=== PATIENT | female | born 1980 | race Caucasian/White ===

== ENCOUNTER 2018-10-20 08:10 | Outpatient (CLI) | payer BC, SELFPAY ==
[2018-10-18 11:05] VITALS: BMI 26.9
[2018-10-20 08:18] VITALS: BMI 29.3
--- NOTE | 2018-10-20 09:04 | OB.TRI.NOTE ---
- Problem List (1) Previous delivery affecting Status: Acute (2) False labor after 37 weeks of gestation without delivery Status: Acute History of Present Illness Date of Service: 10/20/18 Was patient seen by the physician?: Yes Reason For Visit: R/O LABOR Date of Service: 10/20/18 Final SUZANNA: 10/20/18 Final SUZANNA Source: US <20 weeks Gestational age: 40 Weeks and 0 Days History of Present Illness: Patient presents to triage reporting progressively stronger and longer contractions overnight. Contraction started last night at 10:00pm and were short and irregular, now contractions are reported to be 4 minutes apart and lasting 60-70 seconds long over 1.5 hours. Patient denies VB, LIAN or DFM. See [facility] Record - course has been uncomplicated. PMH significant for IVF with this and previous LTCS. Patient desires TOLAC. Allergies morphine Adverse Reaction (Verified 12/23/14 02:32) Itching - Pertinent Past Medical History Medical History: Past Medical History (Last Reviewed 10/18/18 @ 09:49 by Terri Rodriguez) History of herniated intervertebral disc Stomach ulcer Surgical History: Past Surgical History (Last Reviewed 10/18/18 @ 09:49 by Terri Rodriguez) History of delivery History of cholecystectomy History of foot surgery History of tonsillectomy Review of Systems Constitutional: Denies: Chills, Fever, Weight Change HEENT: Denies: Head Aches, Sinus Congestion, Sinus Drainage Cardiovascular: Denies: Chest Pain, Palpitations Respiratory: Denies: Cough, Shortness of breath at rest, Sputum production Gastrointestinal: Denies: Abdominal Pain, Nausea, Vomiting Genitourinary: Denies: Dysuria Gynecological: Denies: Vaginal bleeding, Vaginal discharge Musculoskeletal: Denies: Joint Pain, Joint Tenderness Skin: Denies: Rash, Wounds Neurological: Denies: Numbness, Tingling, Focal weakness Psychiatric: Denies: Anxiety, Depression, Homicidal Ideations, Suicidal Ideations Hematologic/ Lymphatic: Denies: Easy Bruising, Easy Bleeding Physical Exam Vitals: See nursing note for Vital signs - VSS, Afebrile General: Alert, Oriented x3, No apparent distress HEENT: Atraumatic, Normocephalic. Negative for: Thyromegaly, Lymphadenopathy Cardiovascular: Regular rate, Regular Rhythm Lungs: Normal air movement Abdomen: Soft, Non Tender, Non-Distended, Gravid Extremities:: No edema Neurological: Deep Tendon Reflexes 2+/4 and Symmetrical, Neuro grossly intact LENDING CONSULTANT: Normal external genitalia. Negative for: Vulvar lesions Estimated gestational size: Appropriate for gestational size - EFW = 7# by KAREL Crespo Presentation: Cephalic Cervix Dilation (cm): 0 - Cervix soft Station: -3 Effacement (%): 50 NST - FHR Rate Baby A Baseline: 140 Variability:: Moderate Accelerations:: 15 x 15 Decelerations:: None NST Reactive:: Yes, Appropriate for gestational age FHR Category:: Category I Uterine Activity:: Irregular ctx q 2-10 minutes noted, mildly palpable q 10 minutes Impression/Plan 38 y/o @ 40 weeks, Hx of LTCS x 1, False Labor, Category I FHT P: 1) Dr. Robert back-up OB physician notified of patient exam and plan of care - in agreement to discharge to home at this time 2) TOLAC option again reviewed - patient declines Rpt LTCS at this time 3) Labor precautions and [facility] teaching reviewed 4) RTC as scheduled Paulina LOZA
== END 2018-10-20 09:45 | disposition home or self-care (01) ==
LOC: WPOUT 08:13 → WP 08:15
PROVIDERS: Referring Provider Obstetrics & Gynecology; Visit Provider Obstetrics & Gynecology
DX: O47.1 False labor at or after 37 completed weeks of gestation (principal); Z3A.40 40 weeks gestation of pregnancy; O34.211 Maternal care for low transverse scar from previous cesarean delivery
CPT/HCPCS: 59025; 59050; 99218; G0378

== ENCOUNTER 2018-10-21 02:50 | Inpatient (IN) | payer BC, SELFPAY ==
[2018-10-20 08:18] VITALS: BMI 29.3
[2018-10-21 03:32] VITALS: BMI 29.2
[2018-10-21] MEDS: Lactated Ringers 1,000 ML 50 ML IV ×3 (03:35→10:31)
[2018-10-21 03:57] LABS: Hematocrit 35.3 % (37-47); Hemoglobin 12.1 g/dl (12.0-15.0); Mean Corp Hgb Conc 34.3 g/gl (32-36); Mean Corpuscular Hgb 32.3 pg (27.0-32.0); Mean Corpuscular Volume 94.1 fL (81-99); Mean Platelet Vol. 12.7 fl (6.2-12.0); Platelet Count 133 K/mm3 (150-450); RBC Distribution Width CV 12.4 % (11.6-14.6); RBC Distribution Width SD 41.4 fl (35.1-43.9); Red Blood Count 3.75 M/mm3 (4.2-5.4); White Blood Count 10.1 K/mm3 (4.4-11.0)
[2018-10-21 04:06] LABS: Scan Indicated on CBC? Y/N NO
[2018-10-21] MEDS: Ondansetron 4 MG/2 ML Vial IV (04:13)
[2018-10-21] MEDS: fentaNYL-bupivacaine (epidural) 100 ML BAG EPIDURAL ×2 (05:28→10:32)
--- NOTE | 2018-10-21 05:28 | HP.PCM_ITS ---
- Problem List (1) conceived through in vitro fertilization Status: Acute (2) Rh negative status during Status: Acute (3) Advanced maternal age in multigravida Status: Acute (4) Previous delivery affecting Status: Acute History Date of Admission: 10/21/18 Final SUZANNA: 10/20/18 Final SUZANNA Source: US <20 weeks Gestational age: 40 Weeks and 1 Days History of this : This is a 38 year-old, G [2], P [1], at 40 weeks gestational age, presenting to triage for labor evaluation following regular contractions on and off over the last 18 hours. Starting at 0100 contractions were painful and 3-4 minutes apart. Patient denied VB or SROM. Past surgical hx significant for Primary LTCS for placenta previa, patient desires TOLAC with plans of . course has been uncomplicated. Medical History: Medical History (Last Reviewed 10/18/18 @ 09:49 by Terri Rodriguez) History of herniated intervertebral disc Z87.39 Z34.90 Stomach ulcer K25.9 Surgical History: Surgical History (Last Reviewed 10/18/18 @ 09:49 by Terri Rodriguez) History of delivery Z98.891 History of cholecystectomy Z90.49 History of foot surgery Z98.890 History of tonsillectomy Z90.89 Allergies morphine Adverse Reaction (Verified 10/21/18 03:33) Itching Home Medications: Home Medications Vits [Prenatabs FA] 1 tablet PO DAILY 05/13/16 Ranitidine [Zantac] 150 mg PO DAILY 05/13/16 Aspirin [Aspirin, Baby] 81 mg PO DAILY@0800 10/20/18 Smoking Status: Never smoker Alcohol: None Number of Fetus(es): 1 Heart Tracing: Baseline 135, moderate variability, + accels, no decels TOCO Analysis: Ctx q 5-6 minutes on tocometer now, palpating moderately strong. Ctx were 3-4 minutes on arrival to hospital and palpating strong at that time. History Past Pregnancies: Past Pregnancies Delivery Date Name GA/Weeks Outcome Route Weight Infant Gender Labor Length Anesthesia Delivery Location Provider FOB 05/2014 37+1 Live LTCS 6#3oz F Spinal Labs: O Neg, Abs Neg, H/H = 11.9/36.4 --> ,GBS positive,, RPR NR, Rubella Immune, HIV Neg, HepBsAg Neg, GC/CT = Neg/Neg, Urine Tox Neg, Urine Culture Neg Expected Delivery Method: Describe any other labor & delivery plans:: Desires NCB but may elect epidural Number of Visits: 17 Review of Systems HEENT: Denies: Head Aches, Visual Changes Cardiovascular: Denies: Chest Pain, Palpitations Respiratory: Denies: Cough, Shortness of breath at rest Gastrointestinal: Denies: Nausea, Vomiting Genitourinary: Denies: Dysuria Gynecological: Reports: Vaginal discharge - Scant mucus bloody show Musculoskeletal: Denies: Joint Pain, Joint Tenderness Skin: Denies: Rash Neurological: Denies: Numbness, Tingling Psychiatric: Denies: Anxiety, Depression, Homicidal Ideations, Suicidal Ideations Hematologic/ Lymphatic: Denies: Easy Bruising, Easy Bleeding Physical Exam Vitals: See Nursing Note for Vitals - VSS, Afebrile. One elevated BP noted 140/90 during contractions, rpt blood pressure after ctx normotensive General: Alert, Oriented x3, No apparent distress - calmly breathing through ctx HEENT: Atraumatic, Normocephalic. Negative for: Thyromegaly, Lymphadenopathy Cardiovascular: Regular rate, Regular Rhythm Lungs: Normal air movement Abdomen: Soft, Non Tender, Gravid - EFW = 7.5#, baby KALINA by Gaetano's, Appropriate for Gestational Age Extremities:: No edema Neurological: Cranial nerves II-XII grossly intact, Deep Tendon Reflexes 2+/4 and Symmetrical, Neuro grossly intact SCREEN DOOR MAKER: Normal external genitalia. Negative for: Vulvar lesions Estimated gestational size: Appropriate for gestational size Presentation: Cephalic Cervix Dilation (cm): 4 - BBOW palpable Station: -2 Effacement (%): 100 Assessment/Plan All Active Problems (Last Reviewed 10/18/18 @ 09:49 by Terri Rodriguez) Previous delivery affecting (Acute) False labor after 37 weeks of gestation without delivery (Acute) conceived through in vitro fertilization (Acute) Rh negative status during (Acute) Advanced maternal age in multigravida (Acute) Segmental and somatic dysfunction of pelvic region (Acute) Segmental and somatic dysfunction of sacral region (Acute) Segmental and somatic dysfunction of lumbar region (Acute) This is a 38 year-old, G [2], P [1], at 40 weeks gestational age, Spontaneous Active Labor, Hx of LTCS with plans of TOLAC, Category I FHT. 1) Admit patient, Dr. Robert back up physician notified of admission and is in house at this time 2) Patient requesting epidural at this time 3) Expectant management 4) Anticipate Paulina LOZA
[2018-10-21] MEDS: Mag Hydrox/Al Hydrox/Simeth 30 ML UDC PO (06:36)
--- NOTE | 2018-10-21 07:33 | PCM.PN.OB ---
Patient Problems: Active and Suspected Problems (Last Reviewed 10/18/18 @ 09:49 by Terri Rodriguez) conceived through in vitro fertilization (Acute) Rh negative status during (Acute) Advanced maternal age in multigravida (Acute) Subjective: Patient feeling comfortable after epidural placement. Reports no issues overnight. Baby is vigorous and suckling well at breast; occasional issues with latch secondary to patient having bilateral everted nipples. Patient notes no other problems at this time. Requesting to go home this afternoon or evening if baby is discharged by lead database developer. Objective: FHT baseline 130, moderate variability, + accels, no decels Ctx q 5-6 minutes apart palpating moderately strong SVE = 4-5/100/-1, AROM for copious meconium stained fluid - Physical Exam General: Alert, Oriented x3, Cooperative HEENT: Atraumatic, Normocephalic Neck: Supple Lungs: Normal air movement Cardiovascular: Regular rate, No murmurs Abdomen: Soft, Non Tender Extremities: No edema, Capillary Refill Less than 3 Seconds Skin: No rashes, No breakdown Musculoskeletal: No Tenderness to Palpation of Joints or Extremities Neurological: Cranial nerves II-XII grossly intact, Deep Tendon Reflexes 2+/4 and Symmetrical Psych/Mental Status: Normal Affect, Appropriate Weight: 170 lb 6.677 oz Body Mass Index (BMI) 29.2 Intake and Output for Last 24 Hours 10/19/18 10/20/18 10/21/18 23:59 23:59 23:59 Intake Total 1362 / 1362 Balance 1362 / 1362 Laboratory Tests Past 24 Hrs 10/21/18 10/21/18 03:35 03:35 WBC 10.1 RBC 3.75 L Hgb 12.1 Hct 35.3 L MCV 94.1 MCH 32.3 H MCHC 34.3 RDW 12.4 RDW Differential 41.4 Plt Count 133 L MPV 12.7 H Blood Type O NEGATIVE Antibody Screen NEGATIVE Medical Necessity - Tobacco Use Smoking Status: Never smoker Assessment/Plan All Active Problems (Last Reviewed 10/18/18 @ 09:49 by Terri Rodriguez) Previous delivery affecting (Acute) False labor after 37 weeks of gestation without delivery (Acute) conceived through in vitro fertilization (Acute) Rh negative status during (Acute) Advanced maternal age in multigravida (Acute) Segmental and somatic dysfunction of pelvic region (Acute) Segmental and somatic dysfunction of sacral region (Acute) Segmental and somatic dysfunction of lumbar region (Acute) 38 y/o @ 40.1 wks, Active Labor, AROM for Labor Augmentation, Category I FHT, TOLAC P: 1) Report given to Dr. George FERRIS on-coming provider 2) Continue present management, consider initiation of IV pitocin for labor augmentation if minimal cervical change noted with next exam 3) Reassess cervix PRN for changes to maternal or status Paulina LOZA
--- NOTE | 2018-10-21 07:49 | PCM.PN.OB ---
Patient Problems: Active and Suspected Problems (Last Reviewed 10/18/18 @ 09:49 by Treri Rodriguez) conceived through in vitro fertilization (Acute) Rh negative status during (Acute) Advanced maternal age in multigravida (Acute) Subjective: Patient comfortable and was able to rest after epidural placement. Denies any complaints or concerns at this time. Decision made to reassess cervical exam - plan to consider IUPC and AROM as contractions seem to have spaced out and decreased in strength and intensity. Objective: FHT baseline 130, moderate variability, + accels, no decels Ctx q 5-6 minutes, palpating moderately strong SVE = 4-5/100/-1, AROM for copious meconium stained fluid - Physical Exam General: Alert, Oriented x3, Cooperative HEENT: Atraumatic, Normocephalic Neck: Supple Lungs: Normal air movement Cardiovascular: Regular rate, No murmurs Abdomen: Soft, Non Tender, Gravid Extremities: No edema, Capillary Refill Less than 3 Seconds Skin: No rashes, No breakdown Musculoskeletal: No Tenderness to Palpation of Joints or Extremities Neurological: Cranial nerves II-XII grossly intact Psych/Mental Status: Normal Affect, Appropriate Weight: 170 lb 6.677 oz Body Mass Index (BMI) 29.2 Intake and Output for Last 24 Hours 10/19/18 10/20/18 10/21/18 23:59 23:59 23:59 Intake Total 1362 / 1362 Balance 1362 / 1362 Laboratory Tests Past 24 Hrs 10/21/18 10/21/18 03:35 03:35 WBC 10.1 RBC 3.75 L Hgb 12.1 Hct 35.3 L MCV 94.1 MCH 32.3 H MCHC 34.3 RDW 12.4 RDW Differential 41.4 Plt Count 133 L MPV 12.7 H Blood Type O NEGATIVE Antibody Screen NEGATIVE Medical Necessity - Tobacco Use Smoking Status: Never smoker Assessment/Plan All Active Problems (Last Reviewed 10/18/18 @ 09:49 by Terri Rodriguez) Previous delivery affecting (Acute) False labor after 37 weeks of gestation without delivery (Acute) conceived through in vitro fertilization (Acute) Rh negative status during (Acute) Advanced maternal age in multigravida (Acute) Segmental and somatic dysfunction of pelvic region (Acute) Segmental and somatic dysfunction of sacral region (Acute) Segmental and somatic dysfunction of lumbar region (Acute) 38 y/o @ 40+1wks, TOLAC, Cateogyr I FHT, Active labor with AROM Labor Augmentation P: 1) Reports given to Dr. George FERRIS oncoming provider 2) Continue present management - consider initiation of IV pitocin if contractions remain inadequate 3) Reassess SVE with changes to maternal or status. Paulina LOZA
[2018-10-21] MEDS: Oxytocin 30 units/NS 500 ml 30 UNITS/500 ML IV.SOLN 167 UNITS IV ×2 (10:31→15:15)
[2018-10-21] MEDS: Oxytocin 30 units/NS 500 ml 30 UNITS/500 ML IV.SOLN 334 UNITS IV (14:20)
--- NOTE | 2018-10-21 14:52 | PCM.OB.VAG ---
Vaginal Delivery Maternal Presentation: Active Labor Amniotic Membrane Rupture Type: Artificial Amniotic Fluid Description: Lightly stained meconium Final SUZANNA: 10/20/18 Gestational age: 40 Weeks and 1 Days Date of Procedure: 10/21/18 Pre-Operative Diagnosis: TOLAC Post-Operative Diagnosis: TOLAC Surgery/ Procedure Performed: Spontaneous Vaginal Delivery Type of Anesthesia: Epidural Description of Procedure: Patient prepped & draped when c/c/+2. She pushed to deliver head. head gently guided to allow delivery of anterior & posterior shoulders. No excess traction placed on head. Body delivered & placed on maternal abdomen. 3VC clamped after slight delay. Placenta delivered with gentle traction. Good uterine tone obtained. Presentation: KAREL Placental Delivery Description: Expressed Placenta Disposition: [facility] Cord Vessel Description: 3 Vessels Cord Entanglement: Around neck x 1, loose Estimated Blood Loss: 400ml A gender: Female (1 minute): 8 (5 minute): 9 Episiotomy Description: None Laceration: 2nd degree - perineal - repaired with 3-0 vicryl Medications given after delivery: IV Pitocin Complications: None
[2018-10-21] MEDS: 0.9% Saline Lock 10 ML Syringe IV (16:27)
[2018-10-21 19:42] VITALS: BP 140/83; PULSE 96; RESP 17; TEMP 37.7; O2SAT 99
[2018-10-21] MEDS: Ibuprofen 600 MG Tablet PO (20:37)
[2018-10-22 00:05] VITALS: BP 120/66; PULSE 90; RESP 16; TEMP 36.7; O2SAT 98
[2018-10-22 04:10] VITALS: BP 115/73; PULSE 72; RESP 17; TEMP 36.8; O2SAT 98
[2018-10-22] MEDS: Ibuprofen 600 MG Tablet PO ×3 (05:04→17:28)
[2018-10-22] MEDS: Acetaminophen 500 MG Tablet 1000 MG PO ×2 (09:00→21:52)
[2018-10-22] MEDS: Senna/Docusate Sodium 1 Tablet PO (09:00)
[2018-10-22 09:56] VITALS: BP 127/85; PULSE 76; RESP 16; TEMP 36.8
--- NOTE | 2018-10-22 12:03 | PCM.PN.OB ---
Patient Problems: Active and Suspected Problems (Last Reviewed 10/18/18 @ 09:49 by Terri Rodriguez) conceived through in vitro fertilization (Acute) Rh negative status during (Acute) Advanced maternal age in multigravida (Acute) Subjective: Denies complaints other than some perineal pain with movement - Physical Exam General: Alert, Oriented x3 Abdomen: Soft, Non Tender, Non-Distended - ff mid & below umb Extremities: No Calf Tenderness Vital Signs Temp Pulse Resp BP Pulse Ox 98.3 F 76 16 127/85 H 98 10/22/18 09:56 10/22/18 09:56 10/22/18 09:56 10/22/18 09:56 10/22/18 04:10 Oxygen Delivery Method Room Air Weight: 170 lb 6.677 oz Body Mass Index (BMI) 29.2 Intake and Output for Last 24 Hours 10/20/18 10/21/18 10/22/18 23:59 23:59 23:59 Intake Total 1901 / 1901 Output Total 1600 / 1600 Balance 301 / 301 Laboratory Tests Past 24 Hrs 10/21/18 16:25 Screen NEGATIVE Baby's Blood Type O POSITIVE Baby's HAYDEE NEGATIVE Medical Necessity - Tobacco Use Smoking Status: Never smoker Assessment/Plan All Active Problems (Last Reviewed 10/18/18 @ 09:49 by Terri Rodriguez) Previous delivery affecting (Acute) False labor after 37 weeks of gestation without delivery (Acute) conceived through in vitro fertilization (Acute) Rh negative status during (Acute) Advanced maternal age in multigravida (Acute) Segmental and somatic dysfunction of pelvic region (Acute) Segmental and somatic dysfunction of sacral region (Acute) Segmental and somatic dysfunction of lumbar region (Acute) PPD#1 Routine care
[2018-10-22 16:00] VITALS: BP 111/71; PULSE 83; RESP 16; TEMP 36.5
[2018-10-22 19:28] VITALS: BP 129/81; PULSE 87; RESP 16; TEMP 36.9; O2SAT 98
[2018-10-23 02:10] VITALS: BP 120/77; PULSE 96; RESP 19; TEMP 36.8; O2SAT 98
[2018-10-23] MEDS: Ibuprofen 600 MG Tablet PO ×2 (02:14→08:15)
--- NOTE | 2018-10-23 07:41 | PCM.PN.OB ---
Patient Problems: Active and Suspected Problems (Last Reviewed 10/18/18 @ 09:49 by Terri Rodriguez) conceived through in vitro fertilization (Acute) Rh negative status during (Acute) Advanced maternal age in multigravida (Acute) Subjective: No complaints - Physical Exam General: Alert, Oriented x3 Abdomen: Non Tender, Non-Distended - ff mid & below umb Extremities: No Calf Tenderness Vital Signs Temp Pulse Resp BP Pulse Ox 98.2 F 96 19 H 120/77 98 10/23/18 02:10 10/23/18 02:10 10/23/18 02:10 10/23/18 02:10 10/23/18 02:10 Oxygen Delivery Method Room Air Weight: 170 lb 6.677 oz Body Mass Index (BMI) 29.2 Intake and Output for Last 24 Hours 10/21/18 10/22/18 10/23/18 23:59 23:59 23:59 Intake Total 1901 / 1901 Output Total 1600 / 1600 Balance 301 / 301 Medical Necessity - Tobacco Use Smoking Status: Never smoker Assessment/Plan All Active Problems (Last Reviewed 10/18/18 @ 09:49 by Terri Rodriguez) Previous delivery affecting (Acute) False labor after 37 weeks of gestation without delivery (Acute) conceived through in vitro fertilization (Acute) Rh negative status during (Acute) Advanced maternal age in multigravida (Acute) Segmental and somatic dysfunction of pelvic region (Acute) Segmental and somatic dysfunction of sacral region (Acute) Segmental and somatic dysfunction of lumbar region (Acute) PPD#2 D/c home Heme - repeat cbc as mild thrombocytopenia on admission
--- NOTE | 2018-10-23 07:42 | DCINST_ITS ---
Discharge Diet: No Restrictions Discharge Activity: May Drive, May Shower May resume sexual activity in: 4-6 weeks Weight Bearing Status: Weight bearing as tolerated Additional Instructions: If you experience any of the following, contact your healthcare provider. * Bleeding that soaks a pad every hour for 2 hours * Fever 100.4 or higher * Unrelieved incision or abdominal pain * Swelling, redness, discharge or bleeding from your incision or episiotomy site * Your incision begins to separate * Problems urinating (including inability to urinate or burning while urinating). * Visual changes * Severe headache * Flu-like symptoms * Pain or redness in one of both of your breasts * Pain, warmth, tenderness or swelling in your legs, especially the calf area * Frequent nausea and vomiting * Symptoms of depression or anxiety If you experience any of the following, call 911 or go to the nearest Emergency Room. * Chest pain * Problems breathing * Seizure activity * Partial or complete paralysis of a body part, slurred speech, weakness or drooping of the face, or a sudden inability to walk or hold your balance Allergies/Adverse Reactions: Allergies morphine Adverse Reaction (Verified 10/21/18 03:33) Itching Medications to take at Discharge Vits [Prenatabs FA ] 1 tablet PO DAILY 05/13/16 Ranitidine [Zantac] 150 mg PO DAILY 05/13/16 Primary Care Physician: Care Physician,No Primary [Primary Care Provider] - Test Results: Test results from this visit will be discussed in further detail at your follow- up appointment, if applicable.
--- NOTE | 2018-10-23 07:42 | PCM.DCVAG ---
Discharge Diet: No Restrictions Discharge Activity: May Drive, May Shower May resume sexual activity in: 4-6 weeks Weight Bearing Status: Weight bearing as tolerated Additional Instructions: If you experience any of the following, contact your healthcare provider. Bleeding that soaks a pad every hour for 2 hours Fever 100.4 or higher Unrelieved incision or abdominal pain Swelling, redness, discharge or bleeding from your incision or episiotomy site Your incision begins to separate Problems urinating (including inability to urinate or burning while urinating). Visual changes Severe headache Flu-like symptoms Pain or redness in one of both of your breasts Pain, warmth, tenderness or swelling in your legs, especially the calf area Frequent nausea and vomiting Symptoms of depression or anxiety If you experience any of the following, call 911 or go to the nearest Emergency Room. Chest pain Problems breathing Seizure activity Partial or complete paralysis of a body part, slurred speech, weakness or drooping of the face, or a sudden inability to walk or hold your balance Allergies/Adverse Reactions: Allergies morphine Adverse Reaction (Verified 10/21/18 03:33) Itching Medications to take at Discharge Vits [Prenatabs FA ] 1 tablet PO DAILY 05/13/16 Ranitidine [Zantac] 150 mg PO DAILY 05/13/16 Primary Care Physician: Care Physician,No Primary [Primary Care Provider] - Test Results: Test results from this visit will be discussed in further detail at your follow-up appointment, if applicable.
[2018-10-23 08:15] VITALS: BP 118/71; PULSE 98; RESP 18; TEMP 36.5
[2018-10-23 08:45] LABS: Absolute Lymphocyte Count 2.42 X10^3/ul (0.83-4.51); Absolute Neutrophil Count 9.3 X10^3/uL (2.0-7.7); Basophil# 0.03 X10^3/uL; Basophil% 0.2 % (0-1); Eosinophils% 1.5 % (0-5); Hematocrit 26.4 % (37-47); Hemoglobin 8.7 g/dl (12.0-15.0); Lymphocyte # 2.42 X10^3/ul (4.0); Lymphocyte % 18.4 % (19-41); Mean Corpuscular Hgb 32.2 pg (27.0-32.0); Mean Corpuscular Volume 97.8 fL (81-99); Mean Platelet Vol. 11.5 fl (6.2-12.0); Monocyte# 1.06 X10^3/uL; Monocyte% 8.1 % (0-10); Neutrophil # 9.31 X10^3/uL (2.7-7.7); Neutrophil % 70.8 % (47-70); Platelet Count 121 K/mm3 (150-450); RBC Distribution Width CV 12.7 % (11.6-14.6); RBC Distribution Width SD 42.7 fl (35.1-43.9); White Blood Count 13.2 K/mm3 (4.4-11.0)
[2018-10-23 08:49] LABS: POSITIVE COUNT NO; POSITIVE DIFFERENTIAL NO; POSITIVE MORPHOLOGY NO
== END 2018-10-23 11:30 | disposition home or self-care (01) | DRG 806 ==
PROVIDERS: Obstetrics & Gynecology; Admitting Provider Obstetrics & Gynecology; Referring Provider Obstetrics & Gynecology; Visit Provider Obstetrics & Gynecology
PROC: (CPT 59514; principal; 2018-10-26 07:15)
DX: O34.211 Maternal care for low transverse scar from previous cesarean delivery (principal); O99.12 Other diseases of the blood and blood-forming organs and certain disorders involving the immune mechanism complicating childbirth; Z37.0 Single live birth; D69.6 Thrombocytopenia, unspecified; O70.1 Second degree perineal laceration during delivery; M99.03 Segmental and somatic dysfunction of lumbar region; M99.05 Segmental and somatic dysfunction of pelvic region; M99.04 Segmental and somatic dysfunction of sacral region; O69.81X0 Labor and delivery complicated by cord around neck, without compression, not applicable or unspecified; Z67.91 Unspecified blood type, Rh negative; Z3A.40 40 weeks gestation of pregnancy; Z90.49 Acquired absence of other specified parts of digestive tract; Z87.39 Personal history of other diseases of the musculoskeletal system and connective tissue; Z87.11 Personal history of peptic ulcer disease
CPT/HCPCS: 59025; 59050; 85025; 85027; 85461; 86850; 86900; 90384; 99218; J7120; A4216; G0378; J2405; J2790

== ENCOUNTER 2020-12-28 08:16 | Inpatient (IN) | payer BC, SELFPAY ==
[2020-12-28] VITALS (12 sets, daily range): BP systolic 113–144; BP diastolic 62–86; PULSE 62–95; RESP 16; TEMP 36.6–37.4; O2SAT 98; BMI 30.9
[2020-12-28] MEDS: Oxytocin 10 UNITS/ML Vial IM (08:44)
--- NOTE | 2020-12-28 08:57 | PCM.HP.OB ---
History Date of Admission: 10/21/18 Final SUZANNA: 01/11/21 Final SUZANNA Source: US <20 weeks Gestational age: 38 Weeks and 0 Days History of this : This is a 40 year-old, G 3p2, at 38 weeks gestational age presents in active labor- was 10cm dilated on admission with SROM. Medical History: Medical History (Last Reviewed 12/26/20 @ 09:37 by Marcelle Jacinto) History of herniated intervertebral disc Z87.39 Z34.90 Stomach ulcer K25.9 Surgical History: Surgical History (Last Reviewed 12/26/20 @ 09:37 by Marcelle Jacinto) History of delivery Z98.891 History of cholecystectomy Z90.49 History of foot surgery Z98.890 History of tonsillectomy Z90.89 Allergies morphine Adverse Reaction (Verified 10/21/18 03:33) Itching Home Medications: Home Medications Vits [Prenatabs FA ] 1 tab PO DAILY 05/13/16 Ranitidine [Zantac] 150 mg PO DAILY 05/13/16 Smoking Status: Never smoker Alcohol: None Number of Fetus(es): 1 History Past Pregnancies: Past Pregnancies Delivery Date Name GA/ Weeks Outcome Route Wt Sex Labor Length Anesthesia Delivery Location Provider FOB Physical Exam Vitals: Vital Signs Pulse BP 65 144/70 H 12/28/20 08:31 12/28/20 08:31 General: Alert, Oriented x3 Neurological: Cranial nerves II-XII grossly intact Estimated gestational size: Appropriate for gestational size Presentation: Cephalic Cervix Dilation (cm): 10 Station: 2 Effacement (%): 100 Assessment/Plan All Active Problems (Last Reviewed 12/26/20 @ 09:37 by Marcelle Jacinto) Previous delivery affecting (Acute) False labor after 37 weeks of gestation without delivery (Acute) conceived through in vitro fertilization (Acute) Rh negative status during (Acute) Advanced maternal age in multigravida (Acute) Herniation of lumbar intervertebral disc with radiculopathy (Acute) Segmental and somatic dysfunction of cervical region (Acute) Segmental and somatic dysfunction of thoracic region (Acute) Segmental and somatic dysfunction of pelvic region (Acute) Segmental and somatic dysfunction of sacral region (Acute) Segmental and somatic dysfunction of lumbar region (Acute) This is a 40 year-old, , at 38 weeks gestational age active labor- complete on arrival- h/o cs x 1 and NVSD- planning admit to L&D monitor fhr/toco anticipate
--- NOTE | 2020-12-28 09:01 | PCM.OPRPT ---
Vaginal Delivery Maternal Presentation: Active Labor Amniotic Membrane Rupture Type: Spontaneous Amniotic Fluid Description: Clear Final SUZANNA: 01/11/21 Final SUZANNA Source: US <20 weeks Gestational age: 38 Weeks and 0 Days Date of Procedure: 12/28/20 Pre-Operative Diagnosis: Term gestation, Polyhydramnios, previous cs Post-Operative Diagnosis: same, live female infant Surgery/ Procedure Performed: Spontaneous Vaginal Delivery Type of Anesthesia: None Description of Procedure: I was paged and notified patient was complete- upon arrival good maternal pushing efforts delivered head followed by gentle downward traction and maternal pushing to delivery anterior shoulder followed by rest of infants body. delivered at 0841. Delayed cord clamping performed while infant on mother chest. Placenta delivered intact w/o complication. IM pitocin 10u given as patient did not have IV started. 2nd degree perineal laceration - lidocaine injected and repaired with 2-0 vicryl and 3-0 rapide. Presentation: Vertex Placental Delivery Description: Spontaneous Placenta Disposition: [facility] Cord Vessel Description: 3 Vessels Cord Entanglement: None Estimated Blood Loss: 150 Infant A gender: Female (1 minute): 8 (5 minute): 9 Episiotomy Description: None Laceration: Perineal Extension/lac - repaired with 3-0 rapide and 2-0 vicryl, 2nd degree Medications given after delivery: - - IM Pitocin Complications: None
[2020-12-28] MEDS: Ibuprofen 600 MG Tablet PO ×3 (09:58→23:32)
[2020-12-28 10:34] LABS: Absolute Lymphocyte Count 1.42 X10^3/uL (0.83-4.51); Absolute Neutrophil Count 9.6 X10^3/uL (2.0-7.7); Basophil# 0.04 X10^3/uL; Basophil% 0.3 % (0-1); Eosinophil# 0.03 X10^3/uL; Eosinophils% 0.2 % (0-5); Hematocrit 36.8 % (37-47); Hemoglobin 12.2 g/dL (12.0-15.0); Lymphocyte # 1.42 X10^3/ul (4.0); Lymphocyte % 11.8 % (19-41); Mean Corp Hgb Conc 33.2 g/dL (32-36); Mean Corpuscular Volume 93.6 fL (81-99); Monocyte# 0.72 X10^3/uL; NRBC Flagged by Analyzer 0 % (0-5); Neutrophil # 9.58 X10^3/uL (2.7-7.7); Neutrophil % 79.7 % (47-70); Platelet Count 160 K/mm3 (150-450); RBC Distribution Width CV 12.8 % (11.6-14.6); RBC Distribution Width SD 43.8 fl (35.1-43.9); Red Blood Count 3.93 M/mm3 (4.2-5.4)
[2020-12-28] MEDS: Acetaminophen 500 MG Tablet 1000 MG PO (14:46)
[2020-12-29 04:30] VITALS: BP 129/81; PULSE 86; RESP 18; TEMP 36.3
[2020-12-29] MEDS: Ibuprofen 600 MG Tablet PO ×2 (06:02→12:11)
[2020-12-29 07:30] VITALS: BP 137/90; PULSE 81; RESP 16; TEMP 36.5; O2SAT 98
[2020-12-29] MEDS: Acetaminophen 500 MG Tablet 1000 MG PO (08:24)
--- NOTE | 2020-12-29 09:21 | PCM.PN.OB ---
Subjective: Pt seen at bedside doing well. Pt had episode while in shower felt dizzy. Denies CARNEY, visual changes, RUQ pain or chest pain. Sat down in bed and felt better. Breast feeding well. - Physical Exam Vitals/I&O's: Vital Signs Temp Pulse Resp BP Pulse Ox 97.3 F L 86 18 129/81 H 98 12/29/20 04:30 12/29/20 04:30 12/29/20 04:30 12/29/20 04:30 12/28/20 14:36 Oxygen Delivery Method Room Air Weight: 82.1 kg Body Mass Index (BMI) 30.9 General: Alert, Oriented x3 Abdomen: Soft, Non Tender, Non-Distended, - - fundus firm Laboratory Results 12/28/20 10:04: Screen NEGATIVE, Baby's Blood Type A POSITIVE, Baby's HAYDEE NEGATIVE 12/28/20 10:04: WBC 12.0 H, RBC 3.93 L, Hgb 12.2, Hct 36.8 L, MCV 93.6, MCH 31.0, MCHC 33.2, RDW Std Deviation 43.8, RDW Coeff of Magui 12.8, Plt Count 160, MPV 12.0, Immature Gran % (Auto) 2.000 H, Neut % (Auto) 79.7 H, Lymph % (Auto) 11.8 L, [place] % (Auto) 6.0, Eos % (Auto) 0.2, Baso % (Auto) 0.3, Absolute Neuts (auto) 9.6 H, Absolute Lymphs (auto) 1.42, Nucleated RBC % 0 12/28/20 10:04: Blood Type O NEGATIVE, Antibody Screen NEGATIVE Current Medications Acetaminophen (Acetaminophen 500 Mg Tablet) 1,000 mg PO Q8H PRN PRN PRN Reason: Pain Score 1-3 Last Admin: 12/29/20 08:24 Dose: 1,000 mg Documented by: Bisacodyl (Bisacodyl 10 Mg Suppository) 10 mg RC UD PRN PRN Reason: If no BM Dibucaine (Dibucaine 30 Gm Tube) 1 applic TOPICAL TID PRN PRN; Protocol PRN Reason: Discomfort Hydrocortisone (Hydrocortisone 2.5% Crm) 1 applic TOPICAL TID PRN PRN; Protocol PRN Reason: Discomfort Ibuprofen (Ibuprofen 600 Mg Tablet) 600 mg PO Q6H PRN PRN PRN Reason: Pain Score 1-3 Last Admin: 12/29/20 06:02 Dose: 600 mg Documented by: Methylergonovine Maleate (Methylergonovine 0.2 Mg/Ml Ampul) 0.2 mg IM X1 PRN PRN Reason: Excess bleeding/uterine atony Ondansetron HCl (Ondansetron 4 Mg/2 Ml Vial) 4 mg IV Q4H PRN PRN PRN Reason: Nausea Oxycodone HCl (Oxycodone 5 Mg Tablet) 5 - 10 mg PO Q4H PRN PRN PRN Reason: Pain Score 4-10 Senna/Docusate Sodium (Senna/Docusate Sodium 1 Tablet) 1 - 2 tablet PO DAILY PRN PRN PRN Reason: Constipation Simethicone (Simethicone 80 Mg Tablet) 80 mg PO PCHS PRN PRN Reason: Indigestion/Stomach pain Sodium Chloride (0.9% Saline Lock 10 Ml Syringe) 5 - 15 ml IV UD PRN PRN Reason: SALINE FLUSH Medical Necessity - Tobacco Use Smoking Status: Never smoker Assessment/Plan All Active Problems (Last Reviewed 12/26/20 @ 09:37 by Marcelle Jacinto) Previous delivery affecting (Acute) False labor after 37 weeks of gestation without delivery (Acute) conceived through in vitro fertilization (Acute) Rh negative status during (Acute) Advanced maternal age in multigravida (Acute) Herniation of lumbar intervertebral disc with radiculopathy (Acute) Segmental and somatic dysfunction of cervical region (Acute) Segmental and somatic dysfunction of thoracic region (Acute) Segmental and somatic dysfunction of pelvic region (Acute) Segmental and somatic dysfunction of sacral region (Acute) Segmental and somatic dysfunction of lumbar region (Acute) PPD #1 doing well routine care pain mgmt dc home tonight
--- NOTE | 2020-12-29 09:26 | DCINST_ITS ---
Discharge Diet: No Restrictions Discharge Activity: Return to Normal Activity, May not drive while taking narcotic pain medications., May Shower May resume sexual activity in: 4-6 weeks Additional Activity Instructions:: Nothing in the vagina for 4-6 weeks. You may return to work/school in 6 weeks. Call your doctor if your incision/area has: Continuous Slow Oozing, Sudden Increased Bleeding, Increased Pain/ Swelling, Increased Redness, Foul Smelling Discharge Additional Instructions: If you experience any of the following, contact your healthcare provider. * Bleeding that soaks a pad every hour for 2 hours * Fever 100.4 or higher * Unrelieved incision or abdominal pain * Swelling, redness, discharge or bleeding from your incision or episiotomy site * Your incision begins to separate * Problems urinating (including inability to urinate or burning while urinating). * Visual changes * Severe headache * Flu-like symptoms * Pain or redness in one of both of your breasts * Pain, warmth, tenderness or swelling in your legs, especially the calf area * Frequent nausea and vomiting * Symptoms of depression or anxiety If you experience any of the following, call 911 or go to the nearest Emergency Room. * Chest pain * Problems breathing * Seizure activity * Partial or complete paralysis of a body part, slurred speech, weakness or drooping of the face, or a sudden inability to walk or hold your balance Allergies/Adverse Reactions: Allergies morphine Adverse Reaction (Verified 10/21/18 03:33) Itching Medications to take at Discharge Vits [Prenatabs FA ] 1 tab PO DAILY 05/13/16 Ibuprofen [Motrin] 600 mg PO Q6H PRN PRN #30 tab 12/29/20 The following prescriptions were given: Ibuprofen [Motrin] 600 mg PO Q6H PRN PRN #30 tab PRN Reason: Pain Score 1-3 Transmission Status: Pending to [facility] When: Call to make an appointment with your doctor in 6 weeks. If you had elevated Blood Pressure or 4th degree laceration you will need to be seen in 2 weeks. Primary Care Physician: Care Physician,No Primary [Primary Care Provider] - Test Results: Test results from this visit will be discussed in further detail at your follow- up appointment, if applicable.
[2020-12-29] MEDS: oxyCODONE 5 MG Tablet PO (10:10)
[2020-12-29 12:59] VITALS: BP 118/83; PULSE 78; RESP 16; TEMP 36.6; O2SAT 96
[2020-12-29 17:26] VITALS: BP 124/83; PULSE 89; RESP 16; TEMP 36.6
== END 2020-12-29 21:10 | disposition home or self-care (01) | DRG 807 ==
LOC: WPOUT 08:27 → WP 08:29
PROVIDERS: Admitting Provider Obstetrics & Gynecology; Referring Provider Obstetrics & Gynecology; Visit Provider Obstetrics & Gynecology
DX: O70.1 Second degree perineal laceration during delivery (principal); Z37.0 Single live birth; O34.219 Maternal care for unspecified type scar from previous cesarean delivery; O40.3XX0 Polyhydramnios, third trimester, not applicable or unspecified; Z3A.38 38 weeks gestation of pregnancy; Z87.11 Personal history of peptic ulcer disease; Z90.49 Acquired absence of other specified parts of digestive tract
CPT/HCPCS: 59025; 59050; 85025; 85461; 86850; 86900; 86901; 90384; 99218; G0378; J2790

== ENCOUNTER 2021-05-01 07:17 | Day surgery (SDC) | payer BC, SELFPAY ==
--- NOTE | 2021-04-29 14:24 | PCM.HP.BLA ---
History and Physical Date of Admission: 05/01/21 HPI: The patient is a 40 year old female presenting for pre-operative visit. She is scheduled for hysteroscopic removal of IUD, possible laparoscopic removal of IUD and possible possible bilateral salpingectomy for malpositioned IUD on 05/01/21. Procedure discussed along with risks, benefits and complications. Other alternatives discussed for management. Consent form signed? Yes. ? ? PAST MEDICAL HISTORY PAST MEDICAL HISTORY Diagnosis Date ? Abnormal Pap smear of cervix ? ? 12 years ago- 1 neg ? Anemia ? ? anxiety ? ? Breast disorder ? ? breast biopsy 06/2015- benign ? Dyspepsia 2012 ? Endometriosis ? ? removed right falopian tube ? fracture ? ? fx left leg at age 3 year from fall ? Herniated disc ? ? lower back ? Infertility, female ? ? depression ? ? ? PAST SURGICAL HISTORY PAST SURGICAL HISTORY Procedure Laterality Date ? APPENDECTOMY ? 08/06/2014 ? SECTION HX ? 05/2016 ? placenta previa ? L'SCOPE DX W/WO BRUSHINGS/WASHINGS ? 08/06/2014 ? Laparoscopy & Right Tube Removed ? MIRENA IUD ? 02/13/2021 ? Placed in office ? PAST SURGICAL HISTORY OF ? 2009 ? cyst of right foot ? REMOVAL ADENOIDS,PRIMARY,<12 Y/O ? age 11 ? Adenoidectomy ? REMOVAL OF TONSILS,<12 Y/O ? age 11 ? Tonsillectomy ? SEPTOPLASTY ? 08/06/2014 ? SIGMOIDOSCOPY FLEX DIAG ? 07/12/2017 ? Sigmoidoscopy, flexible ? ? ? CURRENT MEDICATIONS Current Outpatient Medications Medication Sig Dispense Refill ? citalopram (CELEXA) 40 mg tablet Take 1 tablet by mouth once daily. 30 tablet 2 ? levonorgestrel (MIRENA) 20 mcg/24 hours (5-6 yrs) 52 mg IUD 1 Each by INTRAUTERINE route as directed. 1 Each 0 ? psyllium seed, with dextrose, (FIBER ORAL) Take by mouth. (Patient not taking: Reported on 04/09/2021 ) ? ? ? cholecalciferol (VITAMIN D-3) 2,000 unit tablet Take 1,000 Units by mouth once daily. ? Tffhvnwn-Uz-Rop-Fe-FA ( VITAMIN) tab Take 1 tablet by mouth. ? ? ? No current facility-administered medications for this visit. ? ? ALLERGIES: Morphine ? PERSONAL HISTORY: SOCIAL HISTORY Social History ? Tobacco Use ? Smoking status: Former Smoker ? ? Years: 0.50 ? ? Quit date: 2002 ? ? Years since quittin.4 ? Smokeless tobacco: Never Used Vaping Use ? Vaping Use: Never used Substance Use Topics ? Alcohol use: Not Currently ? ? Comment: Occ, not while ? Drug use: No ? FAMILY HISTORY: FAMILY HISTORY FAMILY HISTORY Problem Relation Age of Onset ? Thyroid Mother ? ? Osteoporosis Mother ? ? Hypertension Father ? ? Heart Father ? ? other (circulatory issue) Father ? ? No Known Problems Sister ? ? No Known Problems Sister ? ? No Known Problems Brother ? ? Diabetes Maternal Grandmother ? ? Hypertension Maternal Grandmother ? ? Colon Cancer Paternal Grandmother ? ? Cancer Paternal Grandfather ? ? Bone, Liver and Lung ? Aneurysm Maternal Grandfather ? ? Heart Maternal Grandfather ? ? No Known Problems Daughter ? ? No Known Problems Son ? ? ? REVIEW OF SYMPTOMS: GENERAL: denies fevers or chills ENDOCRINOLOGY: has not been on steroids Cardiology : denies palpitations or chest pain Respiratory: denies SOB or cough Hematology: denies history of prolonged bleeding or easy bruising or VTE Allergy: Denies history of personal or family history of allergy to anesthesia ? PHYSICAL EXAMINATION: ? VITALS: Last menstrual period 04/06/2020, currently . ? GENERAL: The patient is well nourished, well hydrated in no acute distress. , The patient is oriented to time, place, and person. NECK: Supple. No lynphadenopathy, normal thyroid, no thyromegaly. LUNGS: Clear to auscultation bilaterally. no wheezes, rhonchi or rales HEART: Regular rate and rhythm, Normal heart sounds and No murmurs or gallops ? IMPRESSION: IUD perforated through the uterus resulting in pelvic pain ? PLAN: The risks/benefits/alternatives and personal involved for the planned hysteroscopy with IUD removal, possible laparoscopy with IUD removal, possible bilateral salpingectomy were reviewed with the patient. Her questions were answered to her satisfaction and she desires to proceed. Consent was signed. I reviewed with her postop instructions and expectations. I have discussed this case in detail with the patient. She does not want to proceed with bilateral salpingectomy unless I have to proceed with a laparoscopy to remove the IUD. If I am able to successfully remove the IUD hysteroscopically, she declines sterilization. ? ? I have reviewed and updated past medical and surgical history, medications and allergies Assessment & Plan Assessment/Plan (1) Malpositioned IUD:
[2021-05-01] VITALS (8 sets, daily range): BP systolic 103–125; BP diastolic 73–91; PULSE 60–82; RESP 14–16; TEMP 36.2–36.7; O2SAT 99–100; BMI 27.0
[2021-05-01 07:45] LABS: Internal QC Validated? YES +Cl - CLEAR BKGD; Pregnancy, Urine Negative Negative
[2021-05-01] MEDS: Lactated Ringers 1,000 ML 75 ML IV (07:58)
[2021-05-01] MEDS: Celecoxib 200 MG Capsule 400 MG PO (07:59)
[2021-05-01] MEDS: Acetaminophen 500 MG Tablet 1000 MG PO (07:59)
[2021-05-01 08:02] LABS: Hematocrit 39.5 % (37-47); Mean Corp Hgb Conc 32.9 g/dL (32-36); Mean Corpuscular Hgb 30.2 pg (27.0-32.0); Mean Corpuscular Volume 91.6 fL (81-99); Mean Platelet Vol. 10.4 fl (6.2-12.0); Platelet Count 215 K/mm3 (150-450); RBC Distribution Width CV 11.9 % (11.6-14.6); Red Blood Count 4.31 M/mm3 (4.2-5.4); White Blood Count 5.8 K/mm3 (4.4-11.0)
--- NOTE | 2021-05-01 08:45 | FALS_PTH ---
PATIENT: ERIBERTO CORREA LOC: [facility] [place] U#:[id number] AGE/SX: 40/F ROOM: RE05/01/[address]: Dr. Irene King MD : [id number] BED: DIS: 05/01/2021 SPEC #: [id number] RECD: 05/01/21 10:47 STATUS: KEERTHI REDorita #: [id number] PIPER: 05/01/21 08:[address]: Irene King DEPT: SURGICAL PATHOLOGY RECD BY: Angeline Al ENTERED: 05/01/21 11:12 SP TYPE: FALL TUBES OTHR DR: Prachi Hatch, DEPUTY K 9-C Tissues: Fallopian tube Procedures: Surgery Specimen Level IV HEADER OPERATION: Diagnostic hysteroscopy PRE-OP DIAGNOSIS: Malpositioned IUD TISSUE SUBMITTED: Left fallopian tube MICROSCOPIC DIAGNOSIS Left fallopian tube, salpingectomy: Complete cross sections of fallopian tube. Focal changes consistent with endometriosis. AM:rg 05/02/2021 MICROSCOPIC DESCRIPTION Slides are reviewed. GROSS DESCRIPTION Received in fixative is one container labeled with the patient's name and designated left fallopian tube. The specimen consists of a fallopian tube in three pieces. One of the pieces with fimbrial end measures 3 cm in length and 0.5 cm in diameter and the intermediate sized piece measures 3 cm in length and 0.4 cm in diameter, and a third piece measures 1 x 0.7 x 0.5 cm. Sections do not reveal any mass lesion. Historiography Teacher sections are submitted in one cassette. / SJ:manuel 05/01/21 TC:5 CPT: 00198
[2021-05-01] MEDS: Bupivacaine Mpf 0.5% 30 ML VIAL (09:47)
--- NOTE | 2021-05-01 10:16 | PCM.OPRPT ---
Problems Associated Problem List Diagnoses (1) Malpositioned IUD: (2) Request for sterilization: Report of Operation Date of Procedure: 05/01/21 Pre-Operative Diagnosis: IUD malpositioned Post-Operative Diagnosis: same Surgery/Procedure Performed:: Hysteroscopy, laparoscopy with left salpingectomy and removal of IUD Description of Surgical Findings:: Right tube surgically absent, normal cervix, endometrium. Normal uterus. Some endometriois of peritoneum and posterior cul de sac. Normal ovaries, IUD perforated through right fundus Surgeon: Irene King health safety coordinator: Durga Regalado health safety coordinator: MICHAEL PUTNAM Type of Anesthesia: General Anesthesiologist: Zeenat Alvarez Special Medications: none Specimen's removed: Mirena IUD, left fallopian tube Drains: none Estimated Blood Loss (mL): 10 Fluids Replaced: 850 cc Description of Procedure: The patient was taken to the OR where she was prepped and draped in dorsal lithotomy position. The weighted speculum was placed in the vagina and the anterior lip of the cervix was grasped with a single-tooth tenaculum. A paracervical block was administered with . The cervix was dilated serially with Hegar dilators. The [5mm] hysteroscope was placed into the uterine cavity and the above findings were noted. Bilateral tubal ostia [were] identified. Attempt was made to grasp the IUD strings were I could see them inserting into the endometrium at the top portion of the endometrial cavity. I attempted to grasp them and remove them but was unable to. Attention then was turned to the abdomen. The arms have been tucked at a neurologically safe in neutral position. A 5 mm intraumbilical incision was made, the abdomen was tented up with towel clamps and direct insertion of a 5 mm trocar and sleeve was completed. All skin incisions were infiltrated with half percent Marcaine before incision was made. Pneumoperitoneum was created. Patient was placed in Trendelenburg. Right and left lateral ports were placed under direct visualization without difficulty. The bowel was swept out of the way and the above findings were noted. A grasper was used to easily remove the IUD and strings from the peritoneal cavity. The right tube was surgically absent. The left tube was then identified and followed out to the fimbriated end. The antimesenteric portion was clamped, sealed and transected with the Endo seal device. Hemostasis of the pedicle was noted. The tube was brought out through the trocar. The ports were removed under direct visualization. The pneumoperitoneum was released. The skin incisions were closed by the MARINE FISHERIES TECHNICIAN with me present in the operating suite. The MARINE FISHERIES TECHNICIAN provided camera direction as well as tissue manipulation during the procedure. The instruments removed from the vagina and a vaginal sweep was completed by me. Specimen was handed off and sent to pathology. Hysteroscopic ins: 200cc normal saline Hysteroscopic outs:100cc Grafts/Implants Used: none Procedure Start Time: 09:47 Procedure Stop Time: 10:23 Complications none Admit VTE Documentation VTE Present on Admission: No VTE Mechan Device Prophylaxis: SCD's VTE Pharm Prophylaxis ordered?: No Reason prophylaxis not ordered:: Procedure Not Indicated
--- NOTE | 2021-05-01 10:23 | DCINST_ITS ---
Discharge Instructions Diet Discharge Diet: No restrictions Activity Discharge Activity: May Shower May resume sexual activity in: 1 week Dressing / Incision Call your doctor if your incision/area has: Sudden Increased Bleeding and Foul Smelling Discharge Call your doctor if you observe: Fever of 101 or Higher Cleanse incision/area with: Soap & Water (Your incisions have skin glue and it can get wet. Leave on until it falls off) Follow Up Care Please Follow Up With: Irene King MD When: In my office or virtual visit in 1-2 weeks or as needed Test Results: Test results from this visit will be discussed in further detail at your follow-up appointment, if applicable. Discharge Plan Admission Attending Provider: Irene King Primary Care Provider: Prachi Hatch NP Discharge Orders/Prescriptions Prescriptions: Continued vit,[id number] 1 TABLET tablet 1 tab PO DAILY RF: 0 ibuprofen 600 MG tablet 600 mg PO Q6H PRN PRN (Reason: Pain Score 1-3) Qty: 30 RF: 0 citalopram 40 mg tablet 40 mg PO DAILY RF: 0 cholecalciferol (vitamin D3) [Vitamin D3] 25 mcg (1,000 unit) Tablet,Chewable 25 mcg PO DAILY RF: 0 Referrals / Follow Up: Prachi Hatch NP, OUTBOARD SYSTEM OPERATOR-C [Primary Care Provider] - Disposition Disposition (needs filled in before D/C Order can be placed): Home, self care
== END 2021-05-01 13:05 | disposition home or self-care (01) ==
LOC: SDC 07:17 → AC 07:18
PROVIDERS: Anesthesiology; PCP Nurse Practitioner Primary Care; Referring Provider Obstetrics & Gynecology; Visit Provider Obstetrics & Gynecology
PROC: 0UJD8ZZ Inspection of Uterus and Cervix, Via Natural or Artificial Opening Endoscopic (ICD-10-PCS; CPT 58555; principal; 2021-05-01 08:30)
PROC: (CPT 58661; 2021-05-01 08:30)
DX: T83.32XA Displacement of intrauterine contraceptive device, initial encounter (principal); N80.2 Endometriosis of fallopian tube; Z79.899 Other long term (current) drug therapy; Z80.1 Family history of malignant neoplasm of trachea, bronchus and lung; Z82.49 Family history of ischemic heart disease and other diseases of the circulatory system; Z82.62 Family history of osteoporosis; Z83.3 Family history of diabetes mellitus; Z83.49 Family history of other endocrine, nutritional and metabolic diseases; Z87.891 Personal history of nicotine dependence; Z88.5 Allergy status to narcotic agent
CPT/HCPCS: 00840; 58301; 58661; 81025; 85027; 88302; 88305; J7120; C1760; J2405

== ENCOUNTER → 2021-06-02 16:12 | Outpatient (CLI) | payer BC, SELFPAY ==
[2021-05-01 07:39] VITALS: BMI 27.0
--- NOTE | 2021-06-02 16:23 | MRI_ITS ---
STUDY: MRI BRAIN WITH AND WITHOUT CONTRAST REASON FOR EXAM: Female, 40 years old. LEFT SUDDEN HEARING LOSS TECHNIQUE: Standardized multiplanar fat and water weighted pulse sequences were obtained. IV DOTAREM 13ML was administered for the contrast portion of the examination. COMPARISON: None. FINDINGS: No evidence for shift of midline structures, mass effect or compression of ventricles noted. No acute intracranial hemorrhage. No abnormal intracranial fluid collections. Basal cisterns are patent. Ventricular system appears unremarkable. No evidence for cerebellar tonsillar herniation. Pituitary stalk and optic chiasm are within normal limits. Axial FLAIR imaging demonstrates no evidence for discrete white matter lesions. Skull base vascular flow voids are patent. Extracranial soft tissue structures are within normal limits. Normal appearance of the calvarium. High-resolution dedicated imaging of the internal auditory canals demonstrates normal appearance of the vestibulocochlear facial nerve complex disease. The labyrinthine structures are within normal limits. No pathologic enhancement. Cortical sulci and gyri are within normal limits No discrete mass or mass effect in the posterior fossa. IMPRESSION: No evidence for acute or subacute ischemic infarction. No evidence for intracranial enhancing mass, acute hemorrhage or hydrocephalus. No evidence for abnormal enhancing intracranial hemorrhage secondary canal or cerebellopontine angle cistern mass. No pathologic enhancement. Normal appearance of the vestibular cochlear and facial nerve complexes. Please note superior semicircular canal dehiscence is not excluded from this exam CT examination of the temporal bones provides better assessment as clinically deemed essential Electronically Signed: Tony Rosenberg MD at 10:58 EDT Tel , Service support , MRI/Brain W/WO Contrast
== END ==
PROVIDERS: PCP Nurse Practitioner Primary Care; Referring Provider Otolaryngology; Visit Provider Otolaryngology
DX: H91.22 Sudden idiopathic hearing loss, left ear (principal)
CPT/HCPCS: 70553; A9575

== ENCOUNTER → 2022-11-16 | Outpatient (CLI) | payer BC, SELFPAY ==
--- NOTE | 2022-11-16 07:27 | MRI_ITS ---
HISTORY: Lumbar radiculopathy, low back into right hip pain from fall x 2.5 months. TECHNIQUE: Multiplanar and multisequence MR images of the lumbar spine were obtained without intravenous contrast. 122 images. COMPARISON: CT abdomen and pelvis 01/02/2015. FINDINGS: VERTEBRAE: Vertebral body heights maintained. Small hemangiomas of T11, L1, L4, and L5 incidentally noted. Degenerative endplate changes of L5-S1. ALIGNMENT: No anterior or posterior subluxation. SPINAL CANAL: Normal morphology and position of the conus medullaris at L1. No gross epidural collection. 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 INTERVERTEBRAL DISCS: T12-L1: No significant posterior disc protrusion, central canal stenosis, or foraminal narrowing based on the sagittal images. L1-2, L2-3: No significant posterior disc protrusion, central canal stenosis, or foraminal narrowing. L3-4, L4-5: Minimal disc bulges with mild facet arthropathy. No significant central canal stenosis or foraminal narrowing. L5-S1: Mild disc bulge with facet arthropathy resulting in minimal narrowing of the thecal sac and mild-moderate bilateral foraminal narrowing. SOFT TISSUES: Mild posterior subcutaneous edema. No paraspinal fluid collection. MRI/Spine Lumbar (Routine) IMPRESSION: Mild disc bulge with facet arthropathy at L5-S1 resulting in mild-moderate bilateral foraminal narrowing. No significant spinal canal stenosis. Electronically Signed: Nuria Woodward MD at 10:05 EST ,
== END | disposition home or self-care (01) ==
PROVIDERS: PCP Nurse Practitioner Primary Care; Referring Provider Chiropractor; Visit Provider Chiropractor
DX: M99.03 Segmental and somatic dysfunction of lumbar region (principal); M99.05 Segmental and somatic dysfunction of pelvic region; M51.16 Intervertebral disc disorders with radiculopathy, lumbar region
CPT/HCPCS: 72148

== ENCOUNTER 2023-05-14 17:35 | Emergency (ER) | payer BC, SELFPAY ==
[2023-05-14 17:39] VITALS: BP 122/76; PULSE 85; RESP 18; TEMP 36.8; O2SAT 99; BMI 27.0
--- NOTE | 2023-05-14 18:25 | CT_ITS ---
INDICATION: headache EXAMINATION: CT BRAIN - CT Head or Brain W/O Contrast Injection TECHNIQUE: Multiple axial images were obtained of the head without intravenous contrast. A radiation dose optimization technique was used for this scan. IV Contrast dosage and agent: None. COMPARISON: None. FINDINGS: BRAIN PARENCHYMA: No intra- or extra-axial hemorrhage. No evidence of acute infarct. No intracranial mass or mass effect. Posterior fossa structures are unremarkable. CSF SPACES: Appropriate for age. No hydrocephalus. Basal cisterns are patent. CALVARIUM, SKULL BASE, PARANASAL SINUSES AND MASTOID AIR CELLS: Clear. No discrete lytic or blastic abnormalities. ORBITS: Both globes, extraocular muscles, optic nerves and retrobulbar fat appear unremarkable. CT/Brain/Head without Contrast IMPRESSION: No acute intracranial findings. Electronically Signed: Rohan Huizar MD at 19:00 EDT ,
--- NOTE | 2023-05-14 18:26 | EDS_ITS ---
HPI History of Present Illness Chief Complaint: Neuro S/Sx Detail of Chief Complaint: Right-sided headache. Informant: patient Onset/Context/Timing Onset: Today, Yesterday and Hours Context: Gradual Onset Timing: Continuous Current Severity: Moderate Maximum Severity: Moderate Narrative Narrative: 42-year-old female history depression anxiety. States that around 4:00 yesterday she started getting a moderate to severe headache behind her right eye. It is gradual in onset. Not thunderclap. Associated nausea no vomiting. No trauma to her head. No fever. She is on no blood thinners. There is no family history of intracranial bleeds or headaches. She actually had a brain MRI 2 years ago which was unremarkable. She typically does not get headaches. Prior similar symptoms: No Recent Illness/Hospitalization: No PFSH PFSH Medical History Alcohol use Anxiety Back pain Former smoker History of herniated intervertebral disc Injury of back Stomach ulcer Wears contact lenses Wears glasses Home Medications vits,calcium no.78-iron fumarate-folic acid 29 mg-1 mg tablet 1 tab PO DAILY 05/13/16 [History Last Taken 10/19/18 22:00] ibuprofen 600 mg tablet 600 mg PO Q6H PRN PRN Pain Score 1-3 #30 tabs 12/29/20 [Rx Last Taken Unknown] cholecalciferol (vitamin D3) 25 mcg (1,000 unit) chewable tablet (Vitamin D3) 25 mcg PO DAILY 04/24/21 [History Last Taken Unknown] citalopram 40 mg tablet 40 mg PO DAILY 04/24/21 [History Last Taken Unknown] Allergy/AdvReac Type Severity Reaction Status Date / Time morphine AdvReac Itching Verified 01/11/23 09:06 Family History Other Alcoholism CVA (cerebral vascular accident) Heart disease Osteoporosis Thyroid disorder Surgical History History of delivery History of cholecystectomy History of foot surgery History of tonsillectomy Hx of laparoscopy Social History Smoking Status: Former smoker alcohol intake: current alcohol intake frequency: holidays/special occasions only substance use type: does not use what type of physical activity do you participate in: yoga frequency: 3-4 times per week ROS ROS ED ROS Narrative Headache with nausea. Review of Systems ROS Unobtainable: Denies due to encephalopathy Constitutional Constitutional ED: Denies chills or fever(s) Eyes Eyes: Denies blurry vision ENT ENT ED: Denies ear pain Cardiovascular Cardiovascular: Denies chest pain Respiratory/Chest Respiratory/Chest: Denies cough or dyspnea Gastrointestinal Gastrointestinal: Denies abdominal pain Genitourinary Genitourinary ED: Denies dysuria or hematuria Musculoskeletal Musculoskeletal: Denies arthralgias Integumentary Denies abscess or Abrasions Neurologic Neurologic: Reports headache(s) Psychiatric Psychiatric: Denies anxiety or depression Endocrine Endocrinology: Denies cold intolerance Hematologic/Lymphatic Hematologic/Lymphatic: Reports none Allergic/Immunologic Allergic/Immunologic ED: Denies mouth swelling, tongue swelling or urticaria EXAM Physical Exam Narrative Exam Narrative: 42-year-old female no acute distress. Vital signs stable afebrile. HEENT exam pupils round reactive light. Extra motions are intact. Pupils about 2 mm bilaterally. No facial droop. She can open and close either eye and eyelids without any difficulty. There is no droop. Extraocular motions are intact. Neck nontender no meningismus. No lymphadenopathy. Lungs clear. Heart regular rhythm no murmur. Abdomen soft nontender. Moving all 4 extremities. 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 Normal dorsi plantarflexion. Neurologic exam normal. Awake alert. Answering questions. No facial droop. Normal speech. Fingertip to nose and [id number] within normal limits. No drift. 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 Normal dorsi plantarflexion. NIH is 0. Const Vital Signs: 05/14/23 17:39 Temperature 98.3 F Temperature Source Oral Pulse Rate 85 Respiratory Rate 18 Blood Pressure 122/76 H Blood Pressure Mean 91 Pulse Ox 99 Oxygen Delivery Method Room Air Positive well nourished and well developed; Negative for obese, cachectic, contractures or unkempt General Appearance ED: well developed and NAD; Negative for unkempt, cachectic, contractures, cyanotic, diaphoretic or pallor Nutritional Appearance: Negative for cachectic or obese HEENT Reports moist mucous membranes; Denies dry mucous membranes Negative for trauma or tenderness Mouth ED: No dry mucous membranes Mouth: No dry mucous membranes Eyes PERRL and EOMs intact bilaterally General Eye ED: Negative for pale conjunctiva or scleral icterus Neck no lymphadenopathy, supple and no JVD General: Negative for tenderness Lymph Lymphatic: Negative for other Chest Wall inspection of chest normal and palpation of chest normal Chest: Negative for other Resp normal respiratory effort and clear to auscultation bilaterally Effort and Inspection: Negative for retractions Auscultation: Negative for rales, rhonchi or wheezes Cardio regular rate, regular rhythm, S1 normal heart sound, S2 normal heart sound and no murmurs Rhythm: Negative for abnormal rhythm GI normal to inspection, nondistended, normoactive bowel sounds, non-tender, non- distended and no masses Inspection: Negative for abdominal distention Auscultation: normoactive bowel sounds Palpation: soft; Negative for tender or guarding Bladder / Kidney Exam: No other Back/Spine no CVA tenderness General Back: Negative for CVA tenderness Cervical Spine: Negative for cervical spine tenderness Thoracic Spine / Upper Back: Negative for thoracic spinal tenderness Lumbar Spine / Lower Back: Negative for lumbar spinal tenderness Extremity normal to inspection General Extremety ED: Negative for edema or tenderness General Extremity: Negative for edema Neuro oriented x3, CN's II-XII intact bilaterally and no sensory deficits noted Neuro Narrative: Normal neurologic exam. NIH 0. Sensorium / Orientation: alert; Negative for orientation impaired, lethargic or stuporous Motor Exam: strength 5/5 throughout Psych mental status grossly normal Appearance: Negative for unkempt Attitude: No agitated Mood & Affect: Negative for depressed, anxious or tearful Skin no rashes or lesions noted, no wounds and skin turgor normal General Skin Exam: elasticity normal; Negative for jaundice or pallor Lesions: No lesion noted Rashes: No rashes noted Trauma: Negative for abrasion Wounds: Negative for wounds noted MDM MDM MDM Narrative Medical decision making narrative: 42-year-old with severe headache that sounds like a migraine behind her right eye. No history of headaches. No family history of headaches or intracranial bleeds or aneurysms. CT of her brain to be obtained. She will be treated with IV fluids Toradol and Zofran and reassess. Neurologic exam is completely normal. Exam patient doing well. Headache improving. She is comfortable being discharged home. Neurologic exam remains normal. CAT scan was unremarkable. History & Record Review Discussion w/independent historian: Patient Radiography Diagnostic Testing: Clinical Impression(s) from Imaging Studies Brain CT 05/14/23 18:25 IMPRESSION: No acute intracranial findings. Electronically Signed: Rohan Huizar MD at 19:00 EDT , Discharge Plan Triage Chief Complaint: Neuro S/Sx ED Provider: Jorge Lopez Dx/Rx/DC Orders Clinical Impression: Headache, migraine Instructions: ED, Migraine (Classical) Prescriptions: No Action vit,[id number] 1 TABLET tablet 1 tab PO DAILY ibuprofen 600 MG tablet 600 mg PO Q6H PRN PRN (Reason: Pain Score 1-3) Qty: 30 0RF citalopram 40 mg tablet 40 mg PO DAILY Patient Comments: take 1 tablet by mouth once daily cholecalciferol (vitamin D3) [Vitamin D3] 25 mcg (1,000 unit) Tablet,Chewable 25 mcg PO DAILY Primary Care Provider: Prachi Hatch NP Referrals: Prachi Hatch NP, [employer]GER[employer] [Primary Care Provider] - 3-5 Days if not improving Activity Restrictions/Additional Instructions: Plenty of fluids and rest. Tylenol and Motrin. Fall with not improving. Return if worse. Disposition Disposition: Home, Self Care
[2023-05-14] MEDS: Ketorolac 30 MG/ML Syringe IV (18:39)
[2023-05-14] MEDS: Ondansetron 4 MG/2 ML Vial IV (18:39)
[2023-05-14 19:45] VITALS: BP 118/84; PULSE 80; RESP 18
== END 2023-05-14 20:05 | disposition home or self-care (01) ==
PROVIDERS: Emergency Provider Emergency Medicine; PCP Nurse Practitioner Primary Care; Visit Provider Emergency Medicine
DX: G43.909 Migraine, unspecified, not intractable, without status migrainosus (principal); Z87.891 Personal history of nicotine dependence; Z90.49 Acquired absence of other specified parts of digestive tract
CPT/HCPCS: 70450; 96361; 96374; 96375; 99283; J7040; A4216; J2405

== ENCOUNTER 2023-12-06 17:00 | Outpatient (RCR) | payer BC, SELFPAY ==
--- NOTE | 2023-11-09 09:01 | HP.PTEVAL_ITS ---
Patient's Visit Information Visit Information Visit Information: ERIBERTO CORREA is a 43 year old F referred to Physical Therapy by Dr. Marissa Baires DC with a diagnosis of LBP. Date of Evaluation: 11/05/23 Physical Therapist: Magno Gross DPT Visit Plan Frequency: 2x /Week Duration: 6 Weeks Plan: Start with neutral spine core stability. Progressing to dynamic stability as able. Subjective Subjective: Pt. is here today for her initial evaluation with diagnosis of LBP. Pt. reports having pain for ~10 years. Pt. reports going through injections, ablations, MRI. Pt has been to chiro as well. She has had good success with all, but still has some symptoms. She is hopeful to reduce symptoms and get back to all recreational and work activities without limitations. Pt. reports no N/T in either LE. Pt. has occasional pain down her L leg, but usually to the level of her buttock. Pt. reports no leg giving out on her. She has not been exercises due to not being sure what will bother her symptoms. Pt. reports increased pain with sitting, less so with standing. Pt. has pain with lifting and bending as well. Pain Lumbar spine: Pain Intensity (Out of 10): 2 Pain Intensity Range: 0 and 8 Objective Objective: POSTURE: Pt. has fairly normal posture. Pt. has normal iliac crest heights. No lateral shift noted. PALPATION: Pt. has tenderness along R side of SI joint and erector spinea. NEURO: Normal throughout. ROM: Lumbar spine: flexion min loss increase NW, ext min/mod loss increase NW, SB nil loss NE, rotation nil loss NE. Normal hip ROM without increase in symptoms. MMT: Pt. has 5/5 strength throughout BLEs. except 4/5 hip abd and extension. Core strength: poor. GAIT: Pt. has fairly normal gait pattern without issues. Stairs. Normal. Special Tests Lumbar Standing: Flexion - Mechanical Response: No effect Lumbar Standing: Flexion - Symptoms During Testing: Increases Lumbar Standing: Flexion - Symptoms After Testing: No worse Lumbar Standing: Extension - Mechanical Response: No effect Lumbar Standing: Extension - Symptoms During Testing: Increases Lumbar Standing: Extension - Symptoms After Testing: No worse Lumbar Standing: Right Side Glides - Mechanical Response: No effect Lumbar Standing: Right Side [place] - Symptoms During Testing: No effect Lumbar Standing: Right Side [place] - Symptoms After Testing: No effect Lumbar Standing: Left Side [place] - Mechanical Response: No effect Lumbar Standing: Left Side [place] - Symptoms During Testing: No effect Lumbar Standing: Left Side [place] - Symptoms After Testing: No effect Lumbar Lying: Flexion - Mechanical Response: No effect Lumbar Lying: Flexion - Symptoms During Testing: Decreases Lumbar Lying: Flexion - Symptoms After Testing: Better Lumbar Lying: Extension - Mechanical Response: No effect Lumbar Lying: Extension - Symptoms During Testing: Increases Lumbar Lying: Extension - Symptoms After Testing: Worse Balance/Special Test Scores Oswestry Low Back Score: 13 Goals Goal 1:: LTG: Pt. to be I with HEP. Goal Time Frame: 4-6 Weeks Goal 2:: LTG: Pt. to have full lumbar ROM without increase in symptoms. Goal Time Frame: 4-6 Weeks Goal 3:: LTG: Pt. to have increased core and hip strength to 5/5 throughout. Goal Time Frame: 4-6 Weeks Goal 4:: LTG: Pt. to complete all work and recreational activities without increase in LBP or leg pain. Goal Time Frame: 4-6 Weeks Rehabilitation Potential Physical Therapy Diagnosis: Pt. has signs and symptoms consistent with LBP with marked core weakness. I would like to work on core stability exercises progressing back to all work and recreationally activities without limitations. Rehabilitation Potential: Excellent Anticipated Interventions Patient/Client Instruction: Educate patient on: Condition, Plan of Care, Risk Factors and Benefits of Fitness Program For the Purpose of:: To facilitate caregiver knowledge, To improve self management, To prevent re-injury, To improve ability to perform tasks related to life management and To improve tolerance to ADL's Therapeutic Exercise to Include: Strength training, Power training, Body mechanics, Postural training, Flexibilty training, Passive ROM and Active ROM For the Purpose of:: To decrease pain, To increase ROM, To improve nutrient delivery to tissue, To increase oxygenation perfusion, To improve muscle performance and motor function, To improve health of tissue, To decrease soft tissue restriction, To increase flexibility/ROM and To improve endurance Text: Thank you for the opportunity to evaluate your patient. For Medicare and Medicare HMO plans, please review the plan of care and approve it. It will need to be FAXED BACK to us at [phone] for Medicare purposes. For Medicare only, by signing this I certify the plan of care. Please let me know if there are questions or concerns regarding this plan of care. Physician Signature: Date:
--- NOTE | 2023-12-14 10:26 | HP.PTREVAL_ITS ---
Re-Evaluation Intro: Dr. Marissa Baires, LARA, It has been my pleasure to treat ERIBERTO CORREA over the last 6 visits for LBP. Please see the progress note below for an update on the physical therapy plan of care! Subjective Subjective: Pt reports some relief with traction during pool therapy. Pt continues to have pain with standing, used to be able to tolerate standing for a while, but now is only able to stand for 10-15 minutes before needing to sit. In the process of getting an MRI scheduled. Objective Objective/Function: ROM: trunk WNL, pain coming back up from flexion MMT: 4-/5 LE globally, pain with manny hip ext (L worse than R) but some relief with sacral stabilization GAIT: WNL, attempted pseudo SI belt with gait belt but not tight enough PALPATION: some tenderness manny piroformis, L erector spinae, tenderness around SI area (+ huong finger sign) SI GAPPING: + had some relief Trialed: opposite arm/leg ext in prone, some pain with repetition but sacral pressue gave some relief (L worse than R). Leukotape to SI to help with stability. Discussed with pt ordering SI belts and trialing a land PT session to see if there is any relief in addition to pool therapy. Pt continues to report and demonstrate sxs congruent with low back/SI pain affecting her quality of life. Pt reports little to no gains with PT but still feels its good for her to come to PT. Pt had difficulty and increase in pain with MMT when attempting to resist motion. Plan Plan Plan: 1) Fitting SI belt 2) Increasing static core/pelvic floor stability (TRX straps, ecuadorean ball, full- body isometrics) 3) Hip strengthening 4) SI leukotaping (if pt reports relief from last time) Balance/Gait/Functional tests Balance/Special Test Scores Oswestry Low Back Score: 13 Goals Goals Goal 1:: LTG: Pt. to be I with HEP. Goal Time Frame: 4-6 Weeks Goal Progress: Goal Met Goal 2:: LTG: Pt. to have full lumbar ROM without increase in symptoms. Goal Time Frame: 4-6 Weeks Goal Progress: Progressing Goal 3:: LTG: Pt. to have increased core and hip strength to 5/5 throughout. Goal Time Frame: 4-6 Weeks Goal Progress: Progressing Goal 4:: LTG: Pt. to complete all work and recreational activities without increase in LBP or leg pain. Goal Time Frame: 4-6 Weeks Goal Progress: Progressing Anticipated Interventions Anticipated Interventions Patient/Client Instruction: Educate patient on: Condition, Plan of Care, Risk Factors and Benefits of Fitness Program For the Purpose of:: To facilitate caregiver knowledge, To improve self management, To prevent re-injury, To improve ability to perform tasks related to life management and To improve tolerance to ADL's Therapeutic Exercise to Include: Strength training, Power training, Body mechanics, Postural training, Flexibilty training, Passive ROM and Active ROM For the Purpose of:: To decrease pain, To increase ROM, To improve nutrient delivery to tissue, To increase oxygenation perfusion, To improve muscle performance and motor function, To improve health of tissue, To decrease soft tissue restriction, To increase flexibility/ROM and To improve endurance Re-Evaluation Ending Re-evaluation ending: Please do not hesitate to contact me at [phone] by phone or if you have questions or concerns regarding this new plan of care! Sincerely, Magno Gross DPT
--- NOTE | 2024-02-17 08:06 | HP.PT.NRP ---
Patient Information Patient Information: ERIBERTO CORREA was seen in my office for initial evaluation on 11/05/23. The following Plan of Care was established for this patient: POC Established Initial Frequency: 2x /Week Initial Duration: 6 Weeks Anticipated Interventions Patient/Client Instruction: Educate patient on: Condition, Plan of Care, Risk Factors and Benefits of Fitness Program For the Purpose of:: To facilitate caregiver knowledge, To improve self management, To prevent re-injury, To improve ability to perform tasks related to life management and To improve tolerance to ADL's Therapeutic Exercise to Include: Strength training, Power training, Body mechanics, Postural training, Flexibilty training, Passive ROM and Active ROM For the Purpose of:: To decrease pain, To increase ROM, To improve nutrient delivery to tissue, To increase oxygenation perfusion, To improve muscle performance and motor function, To improve health of tissue, To decrease soft tissue restriction, To increase flexibility/ROM and To improve endurance Last Seen Last Seen: This patient was last seen in our office 12/13/23. Pertinent comments regarding their Physical therapy will appear below: Pt. was seen in PT for her low back pain. Pt. was not having much progress with aquatic PT. She was going to try a SI belt and trial some exercises on her own. She was to trial PT on her own. She has not been back to PT in several months and will be DC from PT at this point in time. At this point I will be discontinuing this patient from physical therapy. I would be happy to see this patient again in the future if found appropriate by the physician. Thank you! Magno Gross, DPT Balance/Gait/Functional tests Balance/Special Test Scores Oswestry Low Back Score: 13
== END 2023-12-06 19:00 | disposition home or self-care (01) ==
LOC: PT 17:00
PROVIDERS: PCP Nurse Practitioner Primary Care; Referring Provider Chiropractor; Visit Provider Chiropractor
DX: M99.03 Segmental and somatic dysfunction of lumbar region (principal); M99.05 Segmental and somatic dysfunction of pelvic region; M51.16 Intervertebral disc disorders with radiculopathy, lumbar region
CPT/HCPCS: 97113; 97161

== ENCOUNTER → 2023-12-20 | Outpatient (CLI) | payer BC, SELFPAY ==
--- NOTE | 2023-12-20 08:08 | MRI_ITS ---
HISTORY: Back pain. Fall 08/2023, pain low back and left SI area. TECHNIQUE: Multiplanar and multisequence MR images of the lumbar spine were obtained without intravenous contrast. 134 images. COMPARISON: 11/16/2022. FINDINGS: VERTEBRAE: Vertebral body heights maintained. Mild degenerative bone marrow endplate changes of L5-S1. Small T11, L1, L4, and L5 vertebral body hemangiomas incidentally noted. ALIGNMENT: No anterior or posterior subluxation. SPINAL CANAL: Normal morphology and position of the conus medullaris at T12-L1. 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 No gross epidural collection. INTERVERTEBRAL DISCS: T11-12, T12-L1: No significant posterior disc protrusion, central canal stenosis, or foraminal narrowing based on the sagittal images. L1-2, L2-3: No significant posterior disc protrusion, central canal stenosis, or foraminal narrowing. L3-4: Minimal disc bulge and mild facet arthropathy without significant central canal stenosis or foraminal narrowing. L4-5: Mild facet arthropathy. No significant posterior disc protrusion, central canal stenosis, or foraminal narrowing. L5-S1: Mild posterior disc bulge osteophyte complex with facet arthropathy resulting in no significant central canal stenosis and moderate bilateral foraminal narrowing, similar to prior. SOFT TISSUES: No paraspinal fluid collection. Very mild posterior subcutaneous edema. MRI/Spine Lumbar (Routine) IMPRESSION: Mild degenerative disc disease of the lumbar spine without significant spinal canal stenosis. No significant interval change in bilateral foraminal narrowing at L5-S1. Electronically Signed: Nuria Woodward MD at 10:23 EST ,
--- OUTSIDE RECORDS SUMMARY | 2023-12-20 08:28 | XMS RPT_ITS | CCD ---
Author Name Unknown Address [address] [place] [address] Organization [facility] Care Team Providers Care Food And Nutrition Teacher Name Role Phone Lucie Lucio LPN Unavailable Unavailable Marycruz Mcclure MD Primary Care Provider MARYCRUZ MCCLURE Primary Care UnavailDRAGAN Presley Referring Unavailable DRAGAN PORTILLO Attending Unavailable MARYCRUZ MCCLURE Primary Care Lucie Barksdale LPN Unavailable Unavailable Marycruz Mcclure MD Primary Care Provider Allergies Allergy Classification Reported Allergen(s) Allergy Type Date of Onset Reaction(s) Facility (17 sources) Morphine; Translations: [MORPHINE] Drug Allergy 07-30-[address] [facility] Work Phone: Medications Completed/Discontinued Medications Medication Drug Class(es) Dates Sig (Normalized) Sig (Original) 5 ml bupivacaine hydrochloride 5 mg/ml injection (1 source) Amide Local Anesthetic Start: 05-27-2022 End: 05-27-2022 bupivacaine (PF) 0.5 % (5 mg/mL) 2.5 mg injection 24 hr buPROPion hydrochloride 150 mg extended release oral tablet (12 sources) Aminoketone Start: 07-28-2022 take 1 tablet by mouth once daily buPROPion XL (WELLBUTRIN XL) 150 mg 24 hr tablet take 1 tablet by mouth once daily DO NOT CRUSH, CHEW, AND/OR DIVIDE 0 07/28/2022 Active Problems Problem Classification Problem Date Documented Da te Episodic/Chronic Acquired foot deformities (4 sources) Acquired left hallux valgus; Translations: [Hallux valgus (acquired), left foot] Chronic Acquired foot deformities (4 sources) Tailor's bunion of left foot; Translations: [Bunionette of left foot] Episodic Menstrual disorders (1 source) Menorrhagia; Translations: [Excessive and frequent menstruation with regular cycle] Chronic Miscellaneous mental health disorders (2 sources) Disturbance in mood; Translations: [ mood disturbance] Episodic Other connective tissue disease (2 sources) Bursitis of left foot; Translations: [Other enthesopathy of left foot and ankle] Episodic Other screening for suspected conditions (not mental disorders or infectious disease) (2 sources) Patient encounter status; Translations: [Encounter for screening mammogram for malignant neoplasm of breast] Episodic Other upper respiratory infections (1 source) Upper respiratory infection; Translations: [Acute upper respiratory infection, unspecified] 10-11-2023 Episodic Residual codes; unclassified (1 source) Pain; Translations: [Pain, unspecified] Episodic Results Test Name Value Interpretation Reference Range Facil ity Vital Signs Date Time Vital Sign Value Performing Clinician Faci lity 10-11-2023 08:26-0500 Body temperature 97.39 [degF] Sahra Carlson E COMMERCE ANALYST.[employer]IRCRAFT RIGGING AND CONTR[employer]S MECHANIC Work Phone: [facility] 10-11-2023 08:26-0500 Body weight 69.76 kg Sahra Carlson E COMMERCE ANALYST.AIRCRAFT RIGGING AND CONTROLS MECHANIC Work Phone: [facility] 10-11-2023 08:26-0500 Diastolic blood pressure 72 mm[Hg] Sahra Carlson E COMMERCE ANALYST.AIRCRAFT RIGGING AND CONTROLS MECHANIC Work Phone: [facility] 10-11-2023 08:26-0500 Heart rate 96 /min Sahra Carlson E COMMERCE ANALYST.A[employer]CRAFT RIGGING AND CONTROLS MECHANIC Work Phone: [facility] 10-11-2023 08:26-0500 Respiratory rate 16 /min Sahra Carlson E COMMERCE ANALYST.AIRCRAFT RIGGING AND CONTROLS MECHANIC Work Phone: [facility] 10-11-2023 08:26-0500 SaO2% (BldA) [Mass fraction] 97 % Sahra Carlson E COMMERCE ANALYST.AIRCRAFT RIGGING AND CONTROLS MECHANIC Work Phone: [facility] 10-11-2023 08:26-0500 Systolic blood pressure 122 mm[Hg] Sahra Carlson E COMMERCE ANALYST.AIRCRAFT RIGGING AND CONTROLS MECHANIC Work Phone: [facility] 03-11-2023 08:29-0400 Body height 163.8 cm Dragan Portillo MD Work Phone: [facility] 03-11-2023 08:29-0400 Body weight 67.59 kg Dragan Portillo MD Work Phone: [facility] 03-11-2023 08:29-0400 Diastolic blood pressure 62 mm[Hg] Dragan Portillo MD Work Phone: [facility] 03-11-2023 08:29-0400 Systolic blood pressure 104 mm[Hg] Dragan Portillo MD Work Phone: [facility] 02-11-2022 14:21-0400 Body height 163.8 cm Dragan Portillo MD Work Phone: [facility] 02-11-2022 14:21-0400 Body weight 70.31 kg Dragan Portillo MD Work Phone: [facility] 02-11-2022 14:21-0400 Diastolic blood pressure 72 mm[Hg] Dragan Portillo MD Work Phone: [facility] 02-11-2022 14:21-0400 Systolic blood pressure 102 mm[Hg] Dragan Portillo MD Work Phone: [facility] Encounters Encounter Date Encounter Type Care Provider Facility Start: 12-01-2023 ambulatory Marycruz Mcclure MD Work Phone: Internal Medicine [facility] Start: 10-11-2023 End: 10-11-2023 ambulatory MARYCRUZ MCCLURE Facility:[facility] Start: 10-11-2023 End: 10-11-2023 Patient encounter procedure Sahra Carlson APRN.AIRCRAFT RIGGING AND CONTROLS MECHANIC Work Phone: [facility] Procedures Date Procedure Procedure Detail Performing Clinician Start: 10-11-2023 GUS Cote MOLECULAR (POC) Rosina Simon PA-C Work Phone: Start: 10-27-2022 Mammography [facility] Work Phone: Start: 04-09-2022 Radex foot complete minimum 3 views Cleveland Chauhan Work Phone: Start: 02-16-2021 Adult depression scr eening assessment Dragan Portillo MD Work Phone: Plan of Treatment Date Care Activity Detail Author Start: 10-21-[address] [facility] Start: 12-26-2024 HPV TESTING HPV TESTING [facility] Start: 12-26-2024 PAP TESTING PAP TESTING [facility] Start: 12-26-2024 Screening for malign ant neoplasm of cervix [facility] Start: 11-15-2023 Depression Assessment Depression Ass essment [facility] Start: 10-27-[address] [facility] Start: 10-27-2023 Screening for malign ant neoplasm of breast Mammogram Screening [facility] Start: 10-11-2023 End: 10-25-2023 COVID & INFLUENZA A/B & RSV NAAT, ROUTINE [facility] Work Phone: Immunizations Immunization Date Immunization Notes Care Provider Carolyn smalls 09-15-2022 influenza virus vaccine, unspecified formulation Sahra Carlson E COMMERCE ANALYST.[employer] RIGGING AND [employer]OLS MECHANIC Work Phone: [facility] 09-06-2021 influenza, injectabl e, quadrivalent, contains preservative Dragan Portillo MD Work Phone: [facility] Work Phone: 03-07-2021 COVID-19 vaccine, fu ll dose (MODERNA) Dragan Portillo MD Work Phone: [facility] 02-07-2021 COVID-19 vaccine, fu ll dose (MODERNA) Dragan Portillo MD Work Phone: [facility] Work Phone: 10-21-2020 RHO(D) immune globul in- IV or IM Dragan Portillo MD Work Phone: [facility] Work Phone: 10-21-2020 tetanus toxoid, redu kush diphtheria toxoid, and acellular pertussis vaccine, adsorbed Dragan Portillo MD Work Phone: [facility] Work Phone: 08-15-2020 influenza, injectabl e, quadrivalent, preservative free Dragan Portillo MD Work Phone: [facility] 09-07-2019 influenza, injectabl e, quadrivalent, preservative free Dragan Portillo MD Work Phone: [facility] 09-14-2018 tetanus toxoid, redu kush diphtheria toxoid, and acellular pertussis vaccine, adsorbed Dragan Portillo MD Work Phone: [facility] 08-04-2018 influenza, injectabl e, quadrivalent, contains preservative Dragan Portillo MD Work Phone: [facility] 07-28-2018 RHO(D) immune globul in- IV or IM Dragan Portillo MD Work Phone: [facility] Work Phone: 05-02-2018 RHO(D) immune globul in- IV or IM Dragan Portillo MD Work Phone: [facility] 08-18-2017 influenza, injectabl e, quadrivalent, preservative free Dragan Portillo MD Work Phone: [facility] 08-25-2016 influenza, injectabl e, quadrivalent, preservative free Dragan Portillo MD Work Phone: [facility] 05-27-2016 RHO(D) immune globul in- IV or IM Dragan Portillo MD Work Phone: [facility] 03-26-2016 RHO(D) immune globul in- IV or IM Dragan Portillo MD Work Phone: [facility] Work Phone: 03-26-2016 tetanus toxoid, redu kush diphtheria toxoid, and acellular pertussis vaccine, adsorbed Dragan Portillo MD Work Phone: [facility] Work Phone: 11-26-2015 RHO(D) immune globul in- IV or IM Dragan Portillo MD Work Phone: [facility] 09-02-2015 influenza, injectabl e, quadrivalent, preservative free Dragan Portillo MD Work Phone: [facility] 08-24-2014 Seasonal, trivalent, recombinant, injectable influenza vaccine, preservative free Dragan Portillo MD Work Phone: [facility] Payers Date Payer Category Payer Unknown [employer] [id number] 2020-Present [phone] [address] [place] [address] PPO [id number] 2020 Unknown [employer] P[employer] [id number] 2020-Present [phone] [address] [place] [address] PPO [id number] 2020 Unknown [id number] Social History Date Type Detail Facility Start: 03-10-2018 End: 10-11-2023 Tobacco smoking status NHIS Ex-smoker [facility] Work Phone: End: 11-15-2002 History of tobacco use Current smoker [facility] Work Phone: Start: 03-10-2018 End: 10-11-2023 Tobacco use and exposure Smokeless tobacco non-user [facility] Work Phone: Start: 02-11-2022 End: 10-11-2023 Alcohol intake Current drinker of alcohol (finding) [facility] Start: 02-16-2021 History SDOH Alcohol Frequency 4 [facility] Start: 02-16-2021 History SDOH Alcohol Std Drinks 1 [facility] Start: 02-11-2022 History SDOH Alcohol Comment social [facility] Start: 02-16-2021 History SDOH Social Connections Phone 3 [facility] Start: 02-16-2021 History SDOH Social Connections Get Together [address] [facility] Start: 02-16-2021 History SDOH Financial 5 [facility] Start: 11-23-[address] [facility] Start: 1980 Sex Assigned At Not on file C [facility] Start: 03-30-2022 End: 09-10-2022 Exposure to SARS-CoV-2 (event) Not sure [facility] Work Phone: End: 11-15-2002 History of tobacco use Cigarette Smoker [facility] Work Phone: Start: 02-16-2021 End: 11-27-2022 History of Social function [facility] Start: 02-16-2021 End: 11-27-2022 Social connection and isolation panel [facility] Do you belong to any clubs or organizations such as religion groups, unions, fraternal or athletic groups, or school groups? Yes [facility] Are you now , , , , never or living with a partner? [facility] How often to you hav e a drink containing alcohol? 2-[address] [facility] How many standard dr inks containing alcohol do you have on a typical day? [address] [facility] How often do you hav e 6 or more drinks on 1 occasion? Never [facility] How hard is it for y ou to pay for the very basics like food, housing, medical care, and heating Not hard at all [facility] Do you feel stress - tense, restless, nervous, or anxious, or unable to sleep at night because your mind is troubled all the time - these days [OSQ] To some extent [facility] (I/We) worried wheth er (my/our) food would run out before (I/we) got money to buy more. Never true [facility] In the past 12 month s, was there a time when you were not able to pay the mortgage or rent on time? No [facility] Clinical Notes 12-23-2020 to 12-01-2023 Sahra Carlson APRN.AIRCRAFT RIGGING AND CONTROLS MECHANIC - 10/11/2023 8:36 AM ESTTelephone Encounter - Yue Kowalski RN - 03/11/2023 10:22 AM Kaykay Portillo MD - 03/11/2023 8:27 AM EDTPatient Instructions Note Date & Type Note Facility 12-01-2023 Note Patient Outreach (IN [facility]) VI VELA ([id number]) 1980 F Date Time Provider Department 12/01/23 MARYCRUZ MCCLURE During your visit today, we recorded the following information about you: Allergies As of Date: 12/01/2023 Noted Allergy Reaction MORPHINE 07/30/2014 9 - Itching Comments: Itchy skin on arms Date Reviewed: 10/11/2023 Reviewed by: Bell Guan - Fully Assessed Visit Diagnosis:Encounter for screening mammogram for breast cancer [Z12.31] Order(s):[facility] SCREENING [[id number]] Order #: [id number] FUTURE Prescriptions as of 12/06/2023 - meloxicam (MOBIC) 15 mg tablet Take 1 tablet by mouth every afternoon. - segesterone ac-ethin estradiol (ANNOVERA) 0.15-0.013 mg/24 hour vaginal ring Use 1 Each vaginally as directed. Insert 1 ring vaginally. Following insertion, ring should remain in place for 24 continuous days, then removed for 4 days - citalopram (CELEXA) 40 mg tablet Take 1 tablet by mouth once daily. - buPROPion XL (WELLBUTRIN XL) 150 mg 24 hr tablet take 1 tablet by mouth once daily DO NOT CRUSH, CHEW, AND/OR DIVIDE - cholecalciferol (VITAMIN D3) 50 mcg (2,000 unit) tablet Take 1,000 Units by mouth once daily. - Pakultta-Pj-Pwi-Fe-FA tab Take 1 tablet by mouth. Problem List As Of Date 12/01/2023 Noted Resolved Female infertility [N97.9] 04/25/2015 12/01/2018 Abnormal mammogram [R92.8] 05/30/2015 12/01/2018 Rh negative status during in first tr*11/19/2015 05/11/2018 Encounter for supervision of normal first pregn*11/26/2015 04/12/2018 Back pain affecting [O99.891, M54.9] 01/17/2016 11/04/2018 Placenta previa in second trimester [O44.02] 01/20/2016 07/07/2018 37 weeks gestation of [Z3A.37] 05/26/2016 04/12/2018 Bright red rectal bleeding [K62.5] 06/24/2017 04/09/2021 Internal and external hemorrhoids without compl*06/24/2017 04/09/2021 resulting from assisted reproductive *03/10/2018 12/01/2018 Previous delivery, antepartum [O34.219]03/10/2018 04/09/2021 Rh negative state in antepartum period [O26.899*03/10/2018 04/09/2021 History of anxiety [Z86.59] 03/10/2018 04/09/2021 Antepartum multigravida of advanced maternal ag*03/10/2018 04/09/2021 Positive GBS test [B95.1] 09/30/2018 11/04/2018 History of depression [Z86.59] 05/30/2020 04/09/2021 GBS bacteriuria [R82.71] 06/07/2020 04/09/2021 Polyhydramnios in third trimester [O40.3XX0] 12/23/2020 04/09/2021 Encounter Status:Closed by EPIC, PRODUSER on 12/06/23 [facility] 10-11-2023 Note HNO ID: [id number] Author: Sahra Carlson APRN.AIRCRAFT RIGGING AND CONTROLS MECHANIC Service: ? Author Type: Nurse Practitioner Type: Progress Notes Filed: 10/11/2023 8:59 AM Note Text: This note was created using NoteWriter. Subjective Vi Vela is a 43 year old female. 43 year old female with PMH anxiety, and depression presents for illness. Acute onset 2 days ago +sore throat +swollen glands +body aches Denies fever or chills Denies N/V/D Denies cough or congestion. Denies SOB or dyspnea Denies abdominal pain. +ill contacts, citing her children. The history is provided by the patient. No chipper was used. URI There is no chest tightness, cough, difficulty breathing, frequent throat clearing, hemoptysis, hoarse voice, shortness of breath, sputum production or wheezing. This is a new problem. The current episode started in the past 7 days. The problem occurs constantly. The problem has been unchanged. The cough is non-productive. Associated symptoms include a sore throat. Pertinent negatives include no appetite change, chest pain, dyspnea on exertion, ear congestion, ear pain, fever, headaches, heartburn, malaise/fatigue, myalgias, nasal congestion, orthopnea, PND, postnasal drip, rhinorrhea, sneezing, sweats, trouble swallowing or weight loss. Her symptoms are aggravated by nothing. Her symptoms are alleviated by nothing. She reports no improvement on treatment. There are no known risk factors for lung disease. There is no history of asthma, bronchiectasis, bronchitis, COPD, emphysema or pneumonia. PAST MEDICAL HISTORY Diagnosis Date Abnormal Pap smear of cervix 12 years ago- 1 neg Anemia anxiety Breast disorder breast biopsy 06/2015- benign Dyspepsia 2012 Endometriosis removed right falopian tube fracture fx left leg at age 3 year from fall Herniated disc lower back Infertility, female depression PAST SURGICAL HISTORY Procedure Laterality Date ADENOIDECTOMY PRIMARY Adenoidectomy APPENDECTOMY 08/06/2014 SECTION HX 05/2016 placenta previa HYSTEROSCOPY, DIAGNOSTIC (SEPARATE for malpositioned IUD LAPAROSCOPY W/RMVL ADNEXAL STRUCTURES Left 05/01/2021 left salpingectomy, right previously removed LAPS ABD PRTMANDOMENTUM DX W/WO SPEC BR/WA SPX 08/06/2014 Laparoscopy AND Right Tube Removed MIRENA IUD 02/13/2021 Placed in office PAST SURGICAL HISTORY OF 2009 cyst of right foot SEPTOPLASTY 08/06/2014 SIGMOIDOSCOPY FLX DX W/COLLJ SPEC BR/WA IF PFRMD 07/12/2017 Sigmoidoscopy, flexible TONSILLECTOMY PRIMARY/SECONDARY Tonsillectomy ALLERGIES Morphine MEDICATIONS segesterone ac-ethin estradiol (ANNOVERA) 0.15-0.013 mg/24 hour vaginal ring Use 1 Each vaginally as directed. Insert 1 ring vaginally. Following insertion, ring should remain in place for 24 continuous days, then removed for 4 days citalopram (CELEXA) 40 mg tablet Take 1 tablet by mouth once daily. buPROPion XL (WELLBUTRIN XL) 150 mg 24 hr tablet take 1 tablet by mouth once daily DO NOT CRUSH, CHEW, AND/OR DIVIDE Hsphkxrz-Td-Lha-Fe-FA tab Take 1 tablet by mouth. meloxicam (MOBIC) 15 mg tablet Take 1 tablet by mouth every afternoon. cholecalciferol (VITAMIN D3) 50 mcg (2,000 unit) tablet Take 1,000 Units by mouth once daily. FAMILY HISTORY Problem Relation Age of Onset Thyroid Mother Osteoporosis Mother Hypertension Father Heart Father other (circulatory issue) Father No Known Problems Sister No Known Problems Sister No Known Problems Brother Diabetes Maternal Grandmother Hypertension Maternal Grandmother Colon Cancer Paternal Grandmother Cancer Paternal Grandfather Bone, Liver and Lung Aneurysm Maternal Grandfather Heart Maternal Grandfather No Known Problems Daughter No Known Problems Son Social History Tobacco Use Smoking status: Former Years: .5 Types: Cigarettes Quit date: 2002 Years since quittin.9 Smokeless tobacco: Never Vaping Use Vaping Use: Never used Substance Use Topics Alcohol use: Yes Comment: social Drug use: No Review of Systems Constitutional: Positive for fatigue. Negative for appetite change, chills, fever, malaise/fatigue and weight loss. HENT: Positive for sore throat. Negative for ear pain, hoarse voice, postnasal drip, rhinorrhea, sneezing and trouble swallowing. Eyes: Negative for photophobia, pain, discharge, redness and itching. Respiratory: Negative for apnea, cough, hemoptysis, sputum production, choking, chest tightness, shortness of breath and wheezing. Cardiovascular: Negative for chest pain, dyspnea on exertion, palpitations, leg swelling and PND. Gastrointestinal: Negative for abdominal pain, diarrhea, heartburn, nausea and vomiting. Musculoskeletal: Negative for arthralgias, back pain and myalgias. Skin: Negative for color change, pallor, rash and wound. Allergic/Immunologic: Negative for environmental allergies, food allergies and immu (more content not included)... [facility] 10-11-2023 History of Presen t illness Narrative This note was created using [employer]. Subjective Vi Vela is a 43 year old female. 43 year old female with PMH anxiety, and depression presents for illness. Acute onset 2 days ago +sore throat +swollen glands +body aches Denies fever or chills Denies N/V/D Denies cough or congestion. Denies SOB or dyspnea Denies abdominal pain. +ill contacts, citing her children. The history is provided by the patient. No chipper was used. URI There is no chest tightness, cough, difficulty breathing, frequent throat clearing, hemoptysis, hoarse voice, shortness of breath, sputum production or wheezing. This is a new problem. The current episode started in the past 7 days. The problem occurs constantly. The problem has been unchanged. The cough is non-productive. Associated symptoms include a sore throat. Pertinent negatives include no appetite change, chest pain, dyspnea on exertion, ear congestion, ear pain, fever, headaches, heartburn, malaise/fatigue, myalgias, nasal congestion, orthopnea, PND, postnasal drip, rhinorrhea, sneezing, sweats, trouble swallowing or weight loss. Her symptoms are aggravated by nothing. Her symptoms are alleviated by nothing. She reports no improvement on treatment. There are no known risk factors for lung disease. There is no history of asthma, bronchiectasis, bronchitis, COPD, emphysema or pneumonia. PAST MEDICAL HISTORY Diagnosis Date Abnormal Pap smear of cervix 12 years ago- 1 neg Anemia anxiety Breast disorder breast biopsy 06/2015- benign Dyspepsia 2012 Endometriosis removed right falopian tube fracture fx left leg at age 3 year from fall Herniated disc lower back Infertility, female depression PAST SURGICAL HISTORY Procedure Laterality Date ADENOIDECTOMY PRIMARY <AGE 14 age 11 Adenoidectomy APPENDECTOMY 08/06/2014 SECTION HX 05/2016 placenta previa HYSTEROSCOPY, DIAGNOSTIC (SEPARATE for malpositioned IUD LAPAROSCOPY W/RMVL ADNEXAL STRUCTURES Left 05/01/2021 left salpingectomy, right previously removed LAPS ABD PRTM&OMENTUM DX W/WO SPEC BR/WA SPX 08/06/2014 Laparoscopy & Right Tube Removed MIRENA IUD 02/13/2021 Placed in office PAST SURGICAL HISTORY OF 2009 cyst of right foot SEPTOPLASTY 08/06/2014 SIGMOIDOSCOPY FLX DX W/COLLJ SPEC BR/WA IF PFRMD 07/12/2017 Sigmoidoscopy, flexible TONSILLECTOMY PRIMARY/SECONDARY <AGE 14 age 11 Tonsillectomy ALLERGIES Morphine MEDICATIONS segesterone ac-ethin estradiol (ANNOVERA) 0.15-0.013 mg/24 hour vaginal ring Use 1 Each vaginally as directed. Insert 1 ring vaginally. Following insertion, ring should remain in place for 24 continuous days, then removed for 4 days citalopram (CELEXA) 40 mg tablet Take 1 tablet by mouth once daily. buPROPion XL (WELLBUTRIN XL) 150 mg 24 hr tablet take 1 tablet by mouth once daily DO NOT CRUSH, CHEW, AND/OR DIVIDE Wsceolko-Lg-Bht-Fe-FA tab Take 1 tablet by mouth. meloxicam (MOBIC) 15 mg tablet Take 1 tablet by mouth every afternoon. cholecalciferol (VITAMIN D3) 50 mcg (2,000 unit) tablet Take 1,000 Units by mouth once daily. FAMILY HISTORY Problem Relation Age of Onset Thyroid Mother Osteoporosis Mother Hypertension Father Heart Father other (circulatory issue) Father No Known Problems Sister No Known Problems Sister No Known Problems Brother Diabetes Maternal Grandmother Hypertension Maternal Grandmother Colon Cancer Paternal Grandmother Cancer Paternal Grandfather Bone, Liver and Lung Aneurysm Maternal Grandfather Heart Maternal Grandfather No Known Problems Daughter No Known Problems Son Social History Tobacco Use Smoking status: Former Years: .5 Types: Cigarettes Quit date: 2002 Years since quittin.9 Smokeless tobacco: Never Vaping Use Vaping Use: Never used Substance Use Topics Alcohol use: Yes Comment: social Drug use: No Review of Systems Constitutional: Positive for fatigue. Negative for appetite change, chills, fever, malaise/fatigue and weight loss. HENT: Positive for sore throat. Negative for ear pain, hoarse voice, postnasal drip, rhinorrhea, sneezing and trouble swallowing. Eyes: Negative for photophobia, pain, discharge, redness and itching. Respiratory: Negative for apnea, cough, hemoptysis, sputum production, choking, chest tightness, shortness of breath and wheezing. Cardiovascular: Negative for chest pain, dyspnea on exertion, palpitations, leg swelling and PND. Gastrointestinal: Negative for abdominal pain, diarrhea, heartburn, nausea and vomiting. Musculoskeletal: Negative for arthralgias, back pain and myalgias. Skin: Negative for color change, pallor, rash and wound. Allergic/Immunologic: Negative for environmental allergies, food allergies and immunocompromised state. Neurological: Negative for dizziness, facial asymmetry and headaches. Hematological: Positive for adenopathy. Does not bruise/bleed easily. Psychiatric/Behavioral: Negative for agitation and behavioral problems. Objective BP 122/72 Pulse 96 Temp 36.3 C (97.4 F) Resp 16 Wt 69.8 kg (153 lb 12.8 oz) LMP 02/25/2023 (Exact Date) SpO2 97% BMI 25.99 kg/m Physical Exam Vitals and nursing note reviewed. Constitutional: General: She is not in acute distress. Appearance: Normal appearance. She is normal weight. She is not ill-appearing, toxic-appearing or diaphoretic. HENT: Head: Normocephalic and atraumatic. Right Ear: Ear canal and external ear normal. Left Ear: Ear canal and external ear normal. Nose: Nose normal. No congestion or rhinorrhea. Mouth/Throat: Mouth: Mucous membranes are moist. Pharynx: Posterior oropharyngeal erythema present. No oropharyngeal exudate. Eyes: General: Right eye: No discharge. Left eye: No discharge. Extraocular Movements: Extraocular movements intact. Conjunctiva/sclera: Conjunctivae normal. Pupils: Pupils are equal, round, and reactive to light. Cardiovascular: Rate and Rhythm: Normal rate and regular rhythm. Pulses: Normal pulses. Heart sounds: Normal heart sounds. No murmur heard. No friction rub. Pulmonary: Effort: Pulmonary effort is normal. No respiratory distress. Breath sounds: Normal breath sounds. No stridor. No wheezing, rhonchi or rales. Chest: Chest wall: No tenderness. Abdominal: General: Abdomen is flat. There is no distension. Palpations: Abdomen is soft. There is no mass. Tenderness: There is no abdominal tenderness. There is no right CVA tenderness, left CVA tenderness, guarding or rebound. Hernia: No hernia is present. Musculoskeletal: General: No swelling, tenderness, deformity or signs of injury. Normal range of motion. Cervical back: Normal range of motion and neck supple. No rigidity. Right lower leg: No edema. Left lower leg: No edema. Lymphadenopathy: Cervical: Cervical adenopathy present. Skin: General: Skin is warm and dry. Capillary Refill: Capillary refill takes less than 2 seconds. Coloration: Skin is not jaundiced or pale. Findings: No bruising, erythema, lesion or rash. Neurological: General: No focal deficit present. Mental Status: She is alert and oriented to person, place, and time. Cranial Nerves: No cranial nerve deficit. Sensory: No sensory deficit. Motor: No weakness. Coordination: Coordination normal. Gait: Gait normal. Psychiatric: Mood and Affect: Mood normal. Behavior: Behavior normal. Thought Content: Thought content normal. Judgment: Judgment normal. Assessment and Plan ASSESSMENT/PLAN: 1. Upper respiratory tract infection, unspecified type - ICD9: 465.9, ICD10: J06.9 X 2 days - Discussed viral etiology and rationale for treatment. - Group A strep molecular testing negative - Symptomatic treatment with prn analgesia - Supportive care with fluids and rest - The patient may also use OTC cough and cold meds as needed, warm salt water gargles, throat lozenges and/or OTC throat spray as needed, and nasal saline gtts and suction prn. - Follow up in 3-5 days if symptoms persist or sooner if worsening of symptoms - STREP A MOLECULAR (POC) - COVID & INFLUENZA A/B & RSV NAAT, ROUTINE Sahra Carlson APRN.[employer] MECHANIC documented in this encounter [facility] 03-11-2023 Note HNO ID: [id number] Author: Dragan Portillo MD Service: ? Author Type: Physician Type: Progress Notes Filed: 03/11/2023 9:06 AM Note Text: Vi is a 42 year old who presents for an annual gynecologic exam with complaints, heavy bleeding first 1.5 days. Goes from bleeding through super plus tampon to very light. On OCPS. However, c/o night sweats and fatigue. Still very herrera even on meds, especially right before menses for a day or two it is severe . h/o endo and didn't do well w/ last mirena, wasn't in proper location in uterus Menses: cycles every 28 days and 4-5 days of flow. 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 Installer History LMP: 02/25/2023 (Exact Date), Unknown Age at Menarche: Age at First : Age at Menopause: Teletype Installer History Comments: Sexual Activity: Yes; Male; bilateral salpingectomy Contraception: Tubal Ligation PAST MEDICAL HISTORY Diagnosis Date Abnormal Pap smear of cervix 12 years ago- 1 neg Anemia anxiety Breast disorder breast biopsy 06/2015- benign Dyspepsia 2012 Endometriosis removed right falopian tube fracture fx left leg at age 3 year from fall Herniated disc lower back Infertility, female depression PAST SURGICAL HISTORY Procedure Laterality Date ADENOIDECTOMY PRIMARY Adenoidectomy APPENDECTOMY 08/06/2014 SECTION HX 05/2016 placenta previa HYSTEROSCOPY, DIAGNOSTIC (SEPARATE for malpositioned IUD LAPAROSCOPY W/RMVL ADNEXAL STRUCTURES Left 05/01/2021 left salpingectomy, right previously removed LAPS ABD PRTMANDOMENTUM DX W/WO SPEC BR/WA SPX 08/06/2014 Laparoscopy AND Right Tube Removed MIRENA IUD 02/13/2021 Placed in office PAST SURGICAL HISTORY OF 2010 cyst of right foot SEPTOPLASTY 08/06/2014 SIGMOIDOSCOPY FLX DX W/COLLJ SPEC BR/WA IF PFRMD 07/12/2017 Sigmoidoscopy, flexible TONSILLECTOMY PRIMARY/SECONDARY Tonsillectomy FAMILY HISTORY Problem Relation Age of Onset Thyroid Mother Osteoporosis Mother Hypertension Father Heart Father other (circulatory issue) Father No Known Problems Sister No Known Problems Sister No Known Problems Brother Diabetes Maternal Grandmother Hypertension Maternal Grandmother Colon Cancer Paternal Grandmother Cancer Paternal Grandfather Bone, Liver and Lung Aneurysm Maternal Grandfather Heart Maternal Grandfather No Known Problems Daughter No Known Problems Son SOCIAL HISTORY Social History Tobacco Use Smoking status: Former Years: 0.50 Types: Cigarettes Quit date: 2002 Years since quittin.3 Smokeless tobacco: Never Vaping Use Vaping Use: Never used Substance Use Topics Alcohol use: Yes Comment: social Drug use: No REVIEW OF SYSTEMS Abdomen: No abdominal pain, nausea, vomiting, diarrhea, or constipation. No bloating, early satiety, indigestion, or increased flatulence. Bladder: No dysuria, gross hematuria, urinary frequency, urinary urgency, or incontinence. Breast: No breast lumps, nipple d/c, overlying skin changes, redness or skin retraction. Allergies and current medication updated:Yes EXAM: Ht 5' 4.5 (1.64m) Wt 149 lb (67.6kg) LMP 02/25/2023 BMI 25.19 kg/(m2). GENERAL: pleasant, female in no apparent distress HEENT: Normocephalic, atraumatic, mucus membranes moist, and no lesions NECK: Supple, full range of motion, no adenopathy, and thyroid normal DERMATOLOGY: Normal, without lesions, non-icteric, and non-hirsute BREAST: soft, non-tender, symmetric, no dominant mass, normal nipple-areolar complex, no lymphadenopathy, and no nipple discharge CHEST: Normal inspiratory effort ABDOMEN: soft, non-tender, and no masses PELVIC: external genitalia normal, normal Bartholin's glands, urethra, [place]'s glands, no vulvar lesions, no cervical lesions, good vaginal support, physiologic discharge present, normal appearing perineal body and perianal region BIMANUAL: uterus normal size, shape and consistency, no adnexal masses, and non-tender RECTOVAGINAL: deferred. NEURO: alert and oriented x3,exam grossly non-focal EXTREMITIES: normal ASSESSMENT/PLAN: 1) Health maintenance: Pap/HPV up to date. Mammogram up to date . 2) Contraception: tubal sterilization. Contraceptive options reviewed and information provided. 3) STD screening: Declined STD check. 4) Follow up one year or sooner as needed trial continuous ocps for PMS and heavy bleeeding, consider brian if needs to change Dragan Portillo MD [facility] 03-11-2023 Miscellaneous Notes Patient is in office now for annual with RR. Yue Kowalski RN documented in this encounter [facility] 03-11-2023 History of Presen t illness Narrative Vi is a 42 year old who presents for an annual gynecologic exam with complaints, heavy bleeding first 1.5 days. Goes from bleeding through super plus tampon to very light. On OCPS. However, c/o night sweats and fatigue. Still very herrera even on meds, especially right before menses for a day or two it is severe . h/o endo and didn't do well w/ last mirena, wasn't in proper location in uterus Menses: cycles every 28 days and 4-5 days of flow. 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 Installer History LMP: 02/25/2023 (Exact Date), Unknown Age at Menarche: Age at First : Age at Menopause: Teletype Installer History Comments: Sexual Activity: Yes; Male; bilateral salpingectomy Contraception: Tubal Ligation PAST MEDICAL HISTORY Diagnosis Date Abnormal Pap smear of cervix 12 years ago- 1 neg Anemia anxiety Breast disorder breast biopsy 06/2015- benign Dyspepsia 2012 Endometriosis removed right falopian tube fracture fx left leg at age 3 year from fall Herniated disc lower back Infertility, female depression PAST SURGICAL HISTORY Procedure Laterality Date ADENOIDECTOMY PRIMARY <AGE 14 age 11 Adenoidectomy APPENDECTOMY 08/06/2014 SECTION HX 05/2016 placenta previa HYSTEROSCOPY, DIAGNOSTIC (SEPARATE for malpositioned IUD LAPAROSCOPY W/RMVL ADNEXAL STRUCTURES Left 05/01/2021 left salpingectomy, right previously removed LAPS ABD PRTM&OMENTUM DX W/WO SPEC BR/WA SPX 08/06/2014 Laparoscopy & Right Tube Removed MIRENA IUD 02/13/2021 Placed in office PAST SURGICAL HISTORY OF 2010 cyst of right foot SEPTOPLASTY 08/06/2014 SIGMOIDOSCOPY FLX DX W/COLLJ SPEC BR/WA IF PFRMD 07/12/2017 Sigmoidoscopy, flexible TONSILLECTOMY PRIMARY/SECONDARY <AGE 14 age 11 Tonsillectomy FAMILY HISTORY Problem Relation Age of Onset Thyroid Mother Osteoporosis Mother Hypertension Father Heart Father other (circulatory issue) Father No Known Problems Sister No Known Problems Sister No Known Problems Brother Diabetes Maternal Grandmother Hypertension Maternal Grandmother Colon Cancer Paternal Grandmother Cancer Paternal Grandfather Bone, Liver and Lung Aneurysm Maternal Grandfather Heart Maternal Grandfather No Known Problems Daughter No Known Problems Son SOCIAL HISTORY Social History Tobacco Use Smoking status: Former Years: 0.50 Types: Cigarettes Quit date: 2002 Years since quittin.3 Smokeless tobacco: Never Vaping Use Vaping Use: Never used Substance Use Topics Alcohol use: Yes Comment: social Drug use: No REVIEW OF SYSTEMS Abdomen: No abdominal pain, nausea, vomiting, diarrhea, or constipation. No bloating, early satiety, indigestion, or increased flatulence. Bladder: No dysuria, gross hematuria, urinary frequency, urinary urgency, or incontinence. Breast: No breast lumps, nipple d/c, overlying skin changes, redness or skin retraction. Allergies and current medication updated:Yes EXAM: Ht 5' 4.5 (1.64m) Wt 149 lb (67.6kg) LMP 02/25/2023 BMI 25.19 kg/(m^2). GENERAL: pleasant, female in no apparent distress HEENT: Normocephalic, atraumatic, mucus membranes moist, and no lesions NECK: Supple, full range of motion, no adenopathy, and thyroid normal DERMATOLOGY: Normal, without lesions, non-icteric, and non-hirsute BREAST: soft, non-tender, symmetric, no dominant mass, normal nipple-areolar complex, no lymphadenopathy, and no nipple discharge CHEST: Normal inspiratory effort ABDOMEN: soft, non-tender, and no masses PELVIC: external genitalia normal, normal Bartholin's glands, urethra, [place]'s glands, no vulvar lesions, no cervical lesions, good vaginal support, physiologic discharge present, normal appearing perineal body and perianal region BIMANUAL: uterus normal size, shape and consistency, no adnexal masses, and non-tender RECTOVAGINAL: deferred. NEURO: alert and oriented x3,exam grossly non-focal EXTREMITIES: normal ASSESSMENT/PLAN: 1) Health maintenance: Pap/HPV up to date. Mammogram up to date . 2) Contraception: tubal sterilization. Contraceptive options reviewed and information provided. 3) STD screening: Declined STD check. 4) Follow up one year or sooner as needed trial continuous ocps for PMS and heavy bleeeding, consider beyaz if needs to change Dragan Portillo MD documented in this encounter [facility] 12-22-2022 Miscellaneous Notes Started OCP on 11/27/22 documented in this encounter [facility] 11-27-2022 History of Presen t illness Narrative VIRTUAL VISIT PROGRESS NOTE This is a virtual visit using [employer] video visit. It required patient-provider interaction for the medical decision making as documented below. Vi Vela is a 42 year old female seen for heavy menses. Some increased cramping. History of endometriosis. She is bleeding through a super tampon every hour and a half or so at her heaviest day. It only is heavy for a day or so and then more normal. She denies any pain or bleeding with intercourse. HISTORY REVIEWED (electronic chart updated): PAST MEDICAL HISTORY Diagnosis Date Abnormal Pap smear of cervix 12 years ago- 1 neg Anemia anxiety Breast disorder breast biopsy 06/2015- benign Dyspepsia 2012 Endometriosis removed right falopian tube fracture fx left leg at age 3 year from fall Herniated disc lower back Infertility, female depression PAST SURGICAL HISTORY Procedure Laterality Date ADENOIDECTOMY PRIMARY <AGE 14 age 11 Adenoidectomy APPENDECTOMY 08/06/2014 SECTION HX 05/2016 placenta previa HYSTEROSCOPY, DIAGNOSTIC (SEPARATE for malpositioned IUD LAPAROSCOPY W/RMVL ADNEXAL STRUCTURES Left 05/01/2021 left salpingectomy, right previously removed LAPS ABD PRTM&OMENTUM DX W/WO SPEC BR/WA SPX 08/06/2014 Laparoscopy & Right Tube Removed MIRENA IUD 02/13/2021 Placed in office PAST SURGICAL HISTORY OF 2010 cyst of right foot SEPTOPLASTY 08/06/2014 SIGMOIDOSCOPY FLX DX W/COLLJ SPEC BR/WA IF PFRMD 07/12/2017 Sigmoidoscopy, flexible TONSILLECTOMY PRIMARY/SECONDARY <AGE 14 age 11 Tonsillectomy FAMILY HISTORY Problem Relation Age of Onset Thyroid Mother Osteoporosis Mother Hypertension Father Heart Father other (circulatory issue) Father No Known Problems Sister No Known Problems Sister No Known Problems Brother Diabetes Maternal Grandmother Hypertension Maternal Grandmother Colon Cancer Paternal Grandmother Cancer Paternal Grandfather Bone, Liver and Lung Aneurysm Maternal Grandfather Heart Maternal Grandfather No Known Problems Daughter No Known Problems Son Social History Tobacco Use Smoking status: Former Years: 0.50 Types: Cigarettes Quit date: 2002 Years since quittin.0 Smokeless tobacco: Never Vaping Use Vaping Use: Never used Substance Use Topics Alcohol use: Yes Comment: social Drug use: No Current Outpatient Medications Medication Sig buPROPion XL (WELLBUTRIN XL) 150 mg 24 hr tablet take 1 tablet by mouth once daily DO NOT CRUSH, CHEW, AND/OR DIVIDE citalopram (CELEXA) 40 mg tablet Take 1 tablet by mouth once daily. cholecalciferol (VITAMIN D3) 50 mcg (2,000 unit) tablet Take 1,000 Units by mouth once daily. [id number]-[id number]-Fe-FA tab Take 1 tablet by mouth. No current facility-administered medications for this visit. ALLERGIES Allergen Reactions Morphine Itching Itchy skin on arms PHYSICAL EXAMINATION: VIDEO EXAM: (if completed, performed via video enabled technology) GENERAL: alert and appropriate, in no distress, well-hydrated, well nourished, and happy, smiling, interactive ASSESSMENT: Heavy menses, history of endometriosis PLAN: Risk benefits alternatives to trial of combined hormonal contraceptives versus other options were reviewed with the patient, her questions were answered to her satisfaction. She would like to try combined hormonal contraceptives. This is how her menses have been in the past and now that she is done breast-feeding they have returned. Follow-up for annual in 2 to 3 months. Contact office if any questions or concerns in between now and then. Had a Mirena in the past and had to have a hysteroscopy to have it removed. There are no Patient Instructions on file for this visit. I spent a total of 13 minutes on the date of the service which included preparing to see the patient, [id number] patient care, completing clinical documentation, obtaining and/or reviewing separately obtained history, and ordering medications, tests, or procedures Dragan Portillo MD documented in this encounter [facility] 11-13-2022 Miscellaneous Notes Schedule appointment. Virtual ok. Dragan Portillo MD documented in this encounter [facility] 11-02-2022 Miscellaneous Notes Patient called in wanting to schedule surgery. Informed patient at this time this nurse is just waiting on paperwork and instruction from Dr. Chauhan. This nurse will be in touch. Crystal Betancourt LPN documented in this encounter [facility] 10-26-2022 History of Presen t illness Narrative FOLLOW UP PODIATRIC OFFICE VISIT Chief Complaint: This 42 year old who presents for follow up:bunion of left foot and tailors bunion of left foot Patient presents to clinic for follow-up left foot. Susan continues to complain of bunion to the left foot. Her pain to the left big toe is more localized in the joint. She complains of a dull achy pain, worse when she is pushing off the great toe She also complains of pain in the 5th metatarsal. Past treatment for pain has included wider shoes, padding, steroid injection to left 5th toe. She is interested in surgery. PAIN EVALUATION 10/26/2022 0821 Pain Level: 4 Pain Location: Foot-Left Description: Aching Duration Units: Unknown Frequency: Continuous Intervention/Comfort measure: Reposition;Distractions;Relaxati on No results found for: HBA1C PCP: Marycruz Mcclure MD PAST MEDICAL HISTORY Diagnosis Date Abnormal Pap smear of cervix 12 years ago- 1 neg Anemia anxiety Breast disorder breast biopsy 06/2015- benign Dyspepsia 2012 Endometriosis removed right falopian tube fracture fx left leg at age 3 year from fall Herniated disc lower back Infertility, female depression Current Outpatient Medications Medication Sig buPROPion XL (WELLBUTRIN XL) 150 mg 24 hr tablet take 1 tablet by mouth once daily DO NOT CRUSH, CHEW, AND/OR DIVIDE citalopram (CELEXA) 40 mg tablet Take 1 tablet by mouth once daily. cholecalciferol (VITAMIN D3) 50 mcg (2,000 unit) tablet Take 1,000 Units by mouth once daily. Xmctjeby-Hr-Iye-Fe-FA tab Take 1 tablet by mouth. methylPREDNISolone (MEDROL, DIPESH,) 4 mg Dose-Pack Take as directed (Patient not taking: No sig reported) No current facility-administered medications for this visit. ALLERGIES Allergen Reactions Morphine Itching Itchy skin on arms PAST SURGICAL HISTORY Procedure Laterality Date ADENOIDECTOMY PRIMARY <AGE 14 age 11 Adenoidectomy APPENDECTOMY 08/06/2014 SECTION HX 05/2016 placenta previa HYSTEROSCOPY, DIAGNOSTIC (SEPARATE for malpositioned IUD LAPAROSCOPY W/RMVL ADNEXAL STRUCTURES Left 05/01/2021 left salpingectomy, right previously removed LAPS ABD PRTM&OMENTUM DX W/WO SPEC BR/WA SPX 08/06/2014 Laparoscopy & Right Tube Removed MIRENA IUD 02/13/2021 Placed in office PAST SURGICAL HISTORY OF 2010 cyst of right foot SEPTOPLASTY 08/06/2014 SIGMOIDOSCOPY FLX DX W/COLLJ SPEC BR/WA IF PFRMD 07/12/2017 Sigmoidoscopy, flexible TONSILLECTOMY PRIMARY/SECONDARY <AGE 14 age 11 Tonsillectomy Physical Exam: OBJECTIVE: Constitutional: Pt is a well developed 42 year old female who is alert, oriented, cooperative and in no apparent distress. Eyes: Following during examination. No redness or drainage. Respiratory: RR normal and nonlabored. Even breathing. No evidence of distress. Psychology: Patient is engaged during conversation. Normal affect and mood. Does not appear depressed or anxious. NVSI unchanged from previous visit. Dermatological: Nails 1-5 b/l are normal. Webspaces clean and dry 1-4 b/l. Skin appears well hydrated and supple. good color, texture, turgor. No open lesions present. No callosities present. Musculoskeletal/Orthopaedic: Patient has pain to palpation of left 5th metatarsal head Patient has pain to left 1st mtpj Rom of left 1st mtpj is decreased and there is pain with dorsiflexion. Mild pain present to plantar sesamoid ASSESSMENT: (M21.622) Tailor's bunion of left foot (primary encounter diagnosis) (M20.12) Acquired hallux valgus of left foot PLAN: Discussed bunion of left great toe. I do feel she has component of valgus but also rigidus. I asked patient to monitor her activity over the past few weeks and she has found there is more pain within the joint as opposed to the bunion. I informed her that there are two options for her bunion, one is to perform metatarsal osteotomy, the other is to address the valgus and arthritis with a fusion of the first mtpj. It really will be an intra-op evaluation of the cartilage. We discussed getting mri for further evaluation vs using intra-op findings. She has provided me the opportunity to evaluate the joint intra-op. If I find the cartilage to be poor, will proceed with fusion. If the cartilage is not bad, can proceed with distal metatarsal osteotomy. I discussed risks of the procedure not limited to infection, pain, swelling, bleeding, slow wound healing, recurrent deformity, nonunion, malunion, delayed union, cardiac arrest, dvt, . I reviewed past pvr and have spoken with vascular surgery who feels she is capable of healing. Will plan for distal metatarsal osteotomy vs first mtpj fusion pending intra-op findings For her tailors bunion, will plan for distal metatarsal osteotomy. All r/b/a/ discussed. Patient consents to proceed Cleveland Chauhan DPM AMB ROOMING INTAKE FLOWSHEET DATA Risk Screening Do you have concerns about personal safety or safety in the home?: No Pain Pain Level: 4 Pain Location: Foot-Left Description: Aching Duration Units: Unknown Frequency: Continuous Intervention/Comfort measure: Reposition, Distractions, Relaxation Patient presents with: Left Foot - Established Patient, Follow Up, Pain documented in this encounter [facility] 09-10-2022 History of Presen t illness Narrative FOLLOW UP PODIATRIC OFFICE VISIT Chief Complaint: This 42 year old who presents for follow up:tailors bunion of left foot. Patient also here for follow-up bunion of left foot Patient presents to clinic for follow-up left tailors bunion and left hallux valgus deformity Most of her pain is located to the left tailors bunion but there is pain in the hallux valgus The more activie she is the more pain she has. She is here to discuss options. PAIN EVALUATION 09/10/2022 0900 09/10/2022 0903 Pain Level: 3 5 Pain Location: -- Foot-Left Description: -- Sore;Aching Duration Amount of Time: -- 7 Duration Units: -- Months Frequency: -- Continuous Intervention/Comfort measure: -- Reposition;Relaxation;Medication ;Cold No results found for: HBA1C PCP: Marycruz Mcclure MD PAST MEDICAL HISTORY Diagnosis Date Abnormal Pap smear of cervix 12 years ago- 1 neg Anemia anxiety Breast disorder breast biopsy 06/2015- benign Dyspepsia 2012 Endometriosis removed right falopian tube fracture fx left leg at age 3 year from fall Herniated disc lower back Infertility, female depression Current Outpatient Medications Medication Sig buPROPion XL (WELLBUTRIN XL) 150 mg 24 hr tablet take 1 tablet by mouth once daily DO NOT CRUSH, CHEW, AND/OR DIVIDE citalopram (CELEXA) 40 mg tablet Take 1 tablet by mouth once daily. cholecalciferol (VITAMIN D3) 50 mcg (2,000 unit) tablet Take 1,000 Units by mouth once daily. Imfdzdgr-Bx-Mfj-Fe-FA tab Take 1 tablet by mouth. methylPREDNISolone (MEDROL, DIPESH,) 4 mg Dose-Pack Take as directed (Patient not taking: No sig reported) No current facility-administered medications for this visit. ALLERGIES Allergen Reactions Morphine Itching Itchy skin on arms PAST SURGICAL HISTORY Procedure Laterality Date ADENOIDECTOMY PRIMARY <AGE 14 age 11 Adenoidectomy APPENDECTOMY 08/06/2014 SECTION HX 05/2016 placenta previa HYSTEROSCOPY, DIAGNOSTIC (SEPARATE for malpositioned IUD LAPAROSCOPY W/RMVL ADNEXAL STRUCTURES Left 05/01/2021 left salpingectomy, right previously removed LAPS ABD PRTM&OMENTUM DX W/WO SPEC BR/WA SPX 08/06/2014 Laparoscopy & Right Tube Removed MIRENA IUD 02/13/2021 Placed in office PAST SURGICAL HISTORY OF 2010 cyst of right foot SEPTOPLASTY 08/06/2014 SIGMOIDOSCOPY FLX DX W/COLLJ SPEC BR/WA IF PFRMD 07/12/2017 Sigmoidoscopy, flexible TONSILLECTOMY PRIMARY/SECONDARY <AGE 14 age 11 Tonsillectomy Physical Exam: OBJECTIVE: Constitutional: Pt is a well developed 42 year old female who is alert, oriented, cooperative and in no apparent distress. Eyes: Following during examination. No redness or drainage. Respiratory: RR normal and nonlabored. Even breathing. No evidence of distress. Psychology: Patient is engaged during conversation. Normal affect and mood. Does not appear depressed or anxious. NVSI unchanged from previous visit. Dermatological: Nails 1-5 b/l are normal. Webspaces clean and dry 1-4 b/l. Skin appears well hydrated and supple. good color, texture, turgor. No open lesions present. No callosities present. Musculoskeletal/Orthopaedic: Patient has pain to palpation of left lateral 5th metatarsal head. Mild tailors bunion deformity is present. Patient has pain to palpation of left 1st metatarsal head Mild bunion deformity is noted to left foot. ROM of left 1st mtpj is decreased with mild pain. ROM of left 1st metatarsal cuneiform joint does demonstrate some increased motion but motion is not felt to be excessive. ASSESSMENT: (M21.622) Favio's bunion of left foot (primary encounter diagnosis) (M20.12) Acquired hallux valgus of left foot PLAN: Discussed tailors bunion of left foot. Past treatment has included mobic, wider shoes, steroid injection. She has increased pain and now that she has been more active at work, the pain is increasing. She wishes to pursue surgery. We discussed tailors bunion correction by distal metatarsal osteotomy. Discussed risks benefits vs alternatives. She consents to proceed with dmo. Discussed bunion deformity. On exam, she has mild bunion with IM 1-2 ~15 degrees and slightly elevated first ray. Rom of left 1st mtpj is slightly decreased with pain. I discussed options for this patient not limited to distal metatarsal osteotomy, lapidus vs first mtpj fusion. We discussed advantages to each procedure. Patient does mention that she does get some pain in the first mtpj with rom. I am going to recommend she pursue activity over the next 2 weeks to see what type of pain she has. I ifnormed her that addressing her bunion by way of distal osteotomy vs lapidus in presence of arthritic changes would not resolve her pain. If she has pain with rom of left 1st mtpj, fusion may be an option that can address both issues. If it is determined that she does not have pain with rom of left 1st mtpj, we discussed lapidus vs distal osteotomy. Patient will let me know in the coming weeks of her findings. Cleveland Chauhan DPM AMB ROOMING INTAKE FLOWSHEET DATA Pain Pain Level: 5 Pain Location: Foot-Left Description: Sore, Aching Duration Amount of Time: 7 Duration Units: Months Frequency: Continuous Intervention/Comfort measure: Reposition, Relaxation, Medication, Cold Patient presents with: Left Foot - Established Patient, Pain, Follow Up Crystal Betancourt LPN documented in this encounter [facility] 05-27-2022 Instructions Cleveland Chauhan - 05/27/2022 8:36 AM EDT STEROID INJECTION You have been injected with a corticosteroid and local anesthesia today. This should provide relief of symptoms for the next 8 hours or so. After this time frame you will likely experience an increase in pain symptoms again until the effects of the steroid start to work, which should occur within 24-48 hours. Approximately 2% of individuals may experience a post injection flare or severe worsening of symptoms following injection. If this occurs ice the area and take Tylenol or Aleve for pain. In some very rare instances skin depigmentation and joint infection may occur. Joint infection is a concern if you experience any of the following: - pain for more than 48 hours after the injection - pain develops more than 2 days after the injection - the area becomes red, hot or swollen - you develop a fever following the injection Corticosteroid injections can also rarely interfere with the healing process and weaken tendons, sometimes causing tendons to rupture. Repeated injections of steroids can also damage joint cartilage. For these reasons, there are limits to how many times and how frequently corticosteroid injections can be used in the same area. If anything seems unusual or out of the ordinary please contact our office as soon as possible for further instruction. documented in this encounter [facility] 05-27-2022 History of Presen t illness Narrative Images from the original note were not included. FOLLOW UP PODIATRIC OFFICE VISIT Chief Complaint: This 41 year old who presents for follow up:pain of left lateral 5th metatarsal Patient presents to clinic for follow-up left foot pain. Patient continues to complain of pain in the lateral aspect of left 5th metatarsal. Patient states the pain is slightly improved since taking the oral steroid but there is still pain with any pressure on the side of her foot. She is interested in injection. PAIN EVALUATION 05/27/2022 0814 Pain Level: 7 Pain Location: Foot-Left Description: Aching Duration Amount of Time: patient states pain has been ongoing for a few months Duration Units: Months Frequency: Intermittent Intervention/Comfort measure: Relaxation;Reposition;Medication oral steroid No results found for: HBA1C PCP: Marycruz Mcclure MD PAST MEDICAL HISTORY Diagnosis Date Abnormal Pap smear of cervix 12 years ago- 1 neg Anemia anxiety Breast disorder breast biopsy 06/2015- benign Dyspepsia 2012 Endometriosis removed right falopian tube fracture fx left leg at age 3 year from fall Herniated disc lower back Infertility, female depression Current Outpatient Medications Medication Sig citalopram (CELEXA) 40 mg tablet Take 1 tablet by mouth once daily. Djgcpjtr-Ao-Rai-Fe-FA ( VITAMIN) tab Take 1 tablet by mouth. methylPREDNISolone (MEDROL, DIPESH,) 4 mg Dose-Pack Take as directed (Patient not taking: Reported on 05/27/2022 ) cholecalciferol (VITAMIN D-3) 2,000 unit tablet Take 1,000 Units by mouth once daily. No current facility-administered medications for this visit. ALLERGIES Allergen Reactions Morphine Itching Itchy skin on arms PAST SURGICAL HISTORY Procedure Laterality Date ADENOIDECTOMY PRIMARY <AGE 14 age 11 Adenoidectomy APPENDECTOMY 08/06/2014 SECTION HX 05/2016 placenta previa HYSTEROSCOPY, DIAGNOSTIC (SEPARATE for malpositioned IUD LAPAROSCOPY W/RMVL ADNEXAL STRUCTURES Left 05/01/2021 left salpingectomy, right previously removed LAPS ABD PRTM&OMENTUM DX W/WO SPEC BR/WA SPX 08/06/2014 Laparoscopy & Right Tube Removed MIRENA IUD 02/13/2021 Placed in office PAST SURGICAL HISTORY OF 2010 cyst of right foot SEPTOPLASTY 08/06/2014 SIGMOIDOSCOPY FLX DX W/COLLJ SPEC BR/WA IF PFRMD 07/12/2017 Sigmoidoscopy, flexible TONSILLECTOMY PRIMARY/SECONDARY <AGE 14 age 11 Tonsillectomy Physical Exam: OBJECTIVE: Constitutional: Pt is a well developed 41 year old female who is alert, oriented, cooperative and in no apparent distress. Eyes: Following during examination. No redness or drainage. Respiratory: RR normal and nonlabored. Even breathing. No evidence of distress. Psychology: Patient is engaged during conversation. Normal affect and mood. Does not appear depressed or anxious. NVSI unchanged from previous visit. Dermatological: Nails 1-5 b/l are normal. Webspaces clean and dry 1-4 b/l. Skin appears well hydrated and supple. good color, texture, turgor. No open lesions present. No callosities present. Musculoskeletal/Orthopaedic: Patient has pain to palpation of left 5th metatarsal Moderate tailors bunion of left foot Moderate hallux valgus of left foot ASSESSMENT: (M77.52) Bursitis of left foot (primary encounter diagnosis) (M21.622) Tailor's bunion of left foot (M20.12) Acquired hallux valgus of left foot PLAN: Discussed painful tailors bunion/possible bursitis of left foot. She has tried wider shoes and padding and even oral steroid. No improvement. She is interested in trying injection. Patient elected to proceed with an injection to the left 5th bursae. The risks, benefits, potential complications, personnel present, and alternatives to this were discsussed. Pt elected to proceed. all questions were answered. no guarantees were given. A timeout was performed. patient properly identified. procedure site marked. Under aseptic technique an injection was performed to the left foot using a mixture of cc of 0.5 % Marcaine plain, of kenalog and cc of dexamethazone If injection fails to resolve her pain, consider tailors bunion correction. Could also consider hallux valgus correction at same time. Cleveland Chauhan DPM AMB ROOMING INTAKE FLOWSHEET DATA Risk Screening Do you have concerns about personal safety or safety in the home?: No Pain Pain Level: 7 Pain Location: Foot-Left Description: Aching Duration Amount of Time: (patient states pain has been ongoing for a few months) Duration Units: Months Frequency: Intermittent Intervention/Comfort measure: Relaxation, Reposition, Medication (oral steroid) Patient presents with: Left Foot - Follow Up, Pain Patient is here to follow up on L foot pain. Would like steroid injection. Completed MDP with minimal relief. documented in this encounter [facility] 04-09-2022 History of Presen t illness Narrative Chief Complaint: This 41 year old female who presents with chief complaint:pain in left 5th metatarsal/5th toe HPI Patient presents to clinic for evaluation of left foot. Patient complains of pain in the lateral aspect of left 5th metatarsal/left 5th toe. The pain has been present for a couple of weeks. She thought this began with an old pair of shoes. She purchased new shoes and that did help but she still has achy pain in her left 5th toe. Patient has not tried any medication for the pain. PAIN EVALUATION 04/09/2022 0825 Pain Level: 4 Pain Location: Foot-Left Description: Aching Duration Amount of Time: 3 Duration Units: Weeks Frequency: Intermittent Intervention/Comfort measure: Relaxation Comments: No intervention other than relaxation No results found for: HBA1C PCP: Marycruz Mcclure MD PAST MEDICAL HISTORY Diagnosis Date Abnormal Pap smear of cervix 12 years ago- 1 neg Anemia anxiety Breast disorder breast biopsy 06/2015- benign Dyspepsia 2012 Endometriosis removed right falopian tube fracture fx left leg at age 3 year from fall Herniated disc lower back Infertility, female depression Current Outpatient Medications Medication Sig citalopram (CELEXA) 40 mg tablet Take 1 tablet by mouth once daily. cholecalciferol (VITAMIN D-3) 2,000 unit tablet Take 1,000 Units by mouth once daily. Ucyfkwyo-Bx-Vyg-Fe-FA ( VITAMIN) tab Take 1 tablet by mouth. No current facility-administered medications for this visit. ALLERGIES Allergen Reactions Morphine Itching Itchy skin on arms PAST SURGICAL HISTORY Procedure Laterality Date ADENOIDECTOMY PRIMARY <AGE 14 age 11 Adenoidectomy APPENDECTOMY 08/06/2014 SECTION HX 05/2016 placenta previa HYSTEROSCOPY, DIAGNOSTIC (SEPARATE for malpositioned IUD LAPAROSCOPY W/RMVL ADNEXAL STRUCTURES Left 05/01/2021 left salpingectomy, right previously removed LAPS ABD PRTM&OMENTUM DX W/WO SPEC BR/WA SPX 08/06/2014 Laparoscopy & Right Tube Removed MIRENA IUD 02/13/2021 Placed in office PAST SURGICAL HISTORY OF 2009 cyst of right foot SEPTOPLASTY 08/06/2014 SIGMOIDOSCOPY FLX DX W/COLLJ SPEC BR/WA IF PFRMD 07/12/2017 Sigmoidoscopy, flexible TONSILLECTOMY PRIMARY/SECONDARY <AGE 14 age 11 Tonsillectomy FAMILY HISTORY Problem Relation Age of Onset Thyroid Mother Osteoporosis Mother Hypertension Father Heart Father other (circulatory issue) Father No Known Problems Sister No Known Problems Sister No Known Problems Brother Diabetes Maternal Grandmother Hypertension Maternal Grandmother Colon Cancer Paternal Grandmother Cancer Paternal Grandfather Bone, Liver and Lung Aneurysm Maternal Grandfather Heart Maternal Grandfather No Known Problems Daughter No Known Problems Son Social History Tobacco Use Smoking status: Former Smoker Years: 0.50 Quit date: 2002 Years since quittin.4 Smokeless tobacco: Never Used Vaping Use Vaping Use: Never used Substance Use Topics Alcohol use: Yes Comment: social Drug use: No REVIEW OF SYSTEMS GENERAL: Negative for Malaise, significant weight loss, fever RESPIRATORY: Negative for cough, wheezing and shortness of breath CARDIOVASCULAR: Negative for chest pain, leg swelling and palpitations GI: Negative for abdominal discomfort, blood in stools or black stools and change in bowel habits : Negative for dysuria, frequency and incontinence MUSCULOSKELETAL: Negative for joint pain or swelling, back pain, and muscle pain. SKIN: Negative for lesions, rash, and itching. HEMATOLOGY/LYMPHOLOGY Negative for prolonged bleeding, bruising easily, and swollen nodes. ENDOCRINE: Negative for cold or heat intolerance, polyuria, polydipsia and goiter. NEURO: negative Physical Exam: Constitutional: Pt is a well developed 41 year old female who is alert, oriented and cooperative Eyes: Following during examination. No redness or drainage. Respiratory: RR normal and nonlabored. Even breathing. No evidence of distress or shortness of breath. Psychology: Patient is engaged during conversation. Normal affect and mood. Does not appear depressed or anxious during encounter. Vascular: Dorsalis pedis and posterior tibial pulses palpable as b/l Capillary Fill time < 5 seconds to digits 1-5 b/l Skin temperature warm to warm proximal to distal b/l Hair growth present to digits Neurological: intact light touch/epicritic sensation b/l intact protective sensation no significant neurological deficits Dermatological: Nails 1-5 b/l appear normal. Webspaces clean and dry 1-4 b/l. Skin appears well hydrated and supple. good color, texture, turgor. No open lesions present. No callosities present. Musculoskeletal/Orthopaedic: Patient has pain to palpation of left lateral 5th metatarsal head Mild tailors bunion of left foot. Mild hallux valgus Foot type is neutral structurally AJ ROM is full with knee extended and flexed 1st MPJ is full when loaded and no pain or crepitus are noted with ROM. MTJ, STJ are full and free of pain and crepitus. +5/5 muscle strength dorsiflexion, plantarflexion, inversion, eversion b/l Radiographs: 3 views left foot ordered April 09, 2022: I have personally reviewed and interpreted these XR myself: No acute fracture. Hallux valgus deformity is present. Small tailors bunion is present ASSESSMENT: (M77.52) Bursitis of left foot (primary encounter diagnosis) (M21.622) Tailor's bunion of left foot (M20.12) Acquired hallux valgus of left foot PLAN: 1. History and physical examination performed. 2. XR reviewed with patient and interpreted today 3. Discussed likely bursitis of left foot. Recommend wider shoes. Padding is an option as well 4. Discussed oral steroid vs injection. Patient elected for oral steroid. If pain fails to improve, consider steroid injection 5. surgcial options again discussed for tailors bunion and hallux valgus Cleveland Chauhan DPM Podiatry [address] [facility] [address] Dept: [phone] Dept Patient presents with: Left Foot - Pain Left 5th Toe - Pain AMB ROOMING INTAKE FLOWSHEET DATA Risk Screening Do you have concerns about personal safety or safety in the home?: No Pain Pain Level: 4 Pain Location: Foot-Left Description: Aching Duration Amount of Time: 3 Duration Units: Weeks Frequency: Intermittent Intervention/Comfort measure: Relaxation Comments: No intervention other than relaxation Heidy De Santiago documented in this encounter [facility] 04-09-2022 History of Presen t illness Narrative Radiology Service Progress Note PATIENT NAME: Vi Vela DATE OF SERVICE: April 09, 2022 TIME: 8:15 AM PATIENT IDENTITY VERIFICATION COMPLETED USING TWO (2) IDENTIFIERS: Name and Date of confirmed by patient verbally. FALL SCREENING: Has the patient had 2 falls in the last year or 1 fall with injury or currently using an Ambulatory Assistive Device (Walker, Cane, Wheelchair, Crutches, etc.)? No PATIENT GENDER DATA: Female. status: : No status: NO. PATIENT RELEVANT IMPLANT DATA REVIEWED: Not Applicable RADIOLOGY DEPARTMENT: General X-ray: Exam(s) Completed: Lower Extremity X-Ray(s): Foot, Left and Wt. Bearing PERIPHERAL IV DATA: Not applicable SIGNED BY: RT Carolina(R) April 09, 2022 8:15 AM documented in this encounter [facility] 02-11-2022 History of Presen t illness Narrative Vi is a 41 year old who presents for an annual gynecologic exam without complaints. No menses yet. Just stopped nursing 4 days ago. Menses: n/a. 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 History Comments: Sexual Activity: Yes; Male; bilateral salpingectomy Contraception: Tubal Ligation PAST MEDICAL HISTORY Diagnosis Date Abnormal Pap smear of cervix 12 years ago- 1 neg Anemia anxiety Breast disorder breast biopsy 06/2015- benign Dyspepsia 2012 Endometriosis removed right falopian tube fracture fx left leg at age 3 year from fall Herniated disc lower back Infertility, female depression PAST SURGICAL HISTORY Procedure Laterality Date APPENDECTOMY 08/06/2014 SECTION HX 05/2016 placenta previa HYSTEROSCOPY, DIAGNOSTIC (SEPARATE for malpositioned IUD L'SCOPE DX W/WO BRUSHINGS/WASHINGS 08/06/2014 Laparoscopy & Right Tube Removed L'SCOPE REM ADNEX W/PART/TOT OOPH/SALP Left 05/01/2021 left salpingectomy, right previously removed MIRENA IUD 02/13/2021 Placed in office PAST SURGICAL HISTORY OF 2009 cyst of right foot REMOVAL ADENOIDS,PRIMARY,<12 Y/O age 11 Adenoidectomy REMOVAL OF TONSILS,<12 Y/O age 11 Tonsillectomy SEPTOPLASTY 08/06/2014 SIGMOIDOSCOPY FLEX DIAG 07/12/2017 Sigmoidoscopy, flexible FAMILY HISTORY Problem Relation Age of Onset Thyroid Mother Osteoporosis Mother Hypertension Father Heart Father other (circulatory issue) Father No Known Problems Sister No Known Problems Sister No Known Problems Brother Diabetes Maternal Grandmother Hypertension Maternal Grandmother Colon Cancer Paternal Grandmother Cancer Paternal Grandfather Bone, Liver and Lung Aneurysm Maternal Grandfather Heart Maternal Grandfather No Known Problems Daughter No Known Problems Son SOCIAL HISTORY Social History Tobacco Use Smoking status: Former Smoker Years: 0.50 Quit date: 2002 Years since quittin.2 Smokeless tobacco: Never Used Vaping Use Vaping Use: Never used Substance Use Topics Alcohol use: Not Currently Comment: Occ, not while Drug use: No REVIEW OF SYSTEMS Abdomen: No abdominal pain, nausea, vomiting, diarrhea, or constipation. No bloating, early satiety, indigestion, or increased flatulence. Bladder: No dysuria, gross hematuria, urinary frequency, urinary urgency, or incontinence. Breast: No breast lumps, nipple d/c, overlying skin changes, redness or skin retraction. Allergies and current medication updated:Yes EXAM: LMP 05/01/2021 GENERAL: pleasant, female in no apparent distress HEENT: Normocephalic, atraumatic, mucus membranes moist and no lesions NECK: Supple, full range of motion, no adenopathy and thyroid normal DERMATOLOGY: Normal, without lesions, non-icteric and non-hirsute BREAST: soft, non-tender, symmetric, no dominant mass, normal nipple-areolar complex, no lymphadenopathy and no nipple discharge CHEST: Normal inspiratory effort ABDOMEN: soft, non-tender and no masses PELVIC: external genitalia normal, normal Bartholin's glands, urethra, [place]'s glands, no vulvar lesions, no cervical lesions, good vaginal support, physiologic discharge present, normal appearing perineal body and perianal region BIMANUAL: uterus normal size, shape and consistency, no adnexal masses and non-tender RECTOVAGINAL: deferred. NEURO: alert and oriented x3,exam grossly non-focal EXTREMITIES: normal ASSESSMENT/PLAN: 1) Health maintenance: Pap/HPV up to date. Mammogram ordered. 2) Contraception: tubal sterilization. Contraceptive options reviewed and information provided. 3) STD screening: Declined STD check. 4) Follow up one year or sooner as needed Doing well on celexa. Dragan Portillo MD documented in this encounter [facility] documented as of this encounter (statuses as of 02/11/2022) [facility] History of Past illness Narrative* Problem Noted Date Resolved Date Polyhydramnios in third trimester 12/23/2020 04/09/2021 GBS bacteriuria 06/07/2020 04/09/2021 History of depression 05/30/2020 04/09/2021 Overview: 05/30/2020Patient has a history of depression and anxiety that was diagnosed several years ago but became worse after of her last child. She is currently taking Celexa that was treated by Paulina Rose and Prachi Louis in the past. 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 She is worried about not taking an antidepressant because she tried to go off it recently and felt worse. She denies any suicidal thoughts. Patient is interested in a referral to the [facility] behavioral services. She has not been happy with the follow-up visits with her provider recently. See phone note dated May [address] Portillo. TKRN Positive GBS test 09/30/2018 11/04/2018 resulting from ass isted reproductive technology, antepartum 03/10/2018 12/01/2018 Overview: 03/10/2018Patient had a frozen embryo transfer 01/21/[address] Simmons[address] TKRN Previous delivery, antepartum 8 04/09/2021 Overview: 05/30/2020Pt had a previous C section with her first for placenta previa. Had a last .Patient plans on . TKRN Rh negative state in antepartum period 8 04/09/2021 Overview: 03/10/2018Patient is RH negative. She is a RHogam candidate. TKRN History of anxiety 03/10/2018 04/09/2021 Overview: 03/10/2018Patient has a history of anxiety diagnosed 15 years ago. She has been off medication x 6 years. She believes she is doing well off medication. She denies ever havng depression. TKRN Antepartum multigravida of advanced maternal age 0403/10/2018 04/09/2021 Overview: 05/30/2020Patient is 39 years old.Advanced Maternal age discussed. Pt refused handouts on Genetic Amniocentesis and [facility]. Discussed Early Screening In given and discussed. Level II Ultrasound and Dr. Segura's services discussed. Patient desires MaterniT 21 testing and nuchal ultrasound.TKRN Bright red rectal bleeding 06/24/201704/09 Overview: Added automatically from request for surgery [id number] Internal and external hemorrhoids without compli cation 06/24/2017 04/09/2021 Overview: Added automatically from request for surgery [id number] 37 weeks gestation of 05/26/2016 04/12/2018 Placenta previa in second trimester 01/20/2016 07/07/2018 Overview: 04/12/18 - Hx of placenta previa in 1st . Paulina Rose APRN.CNM Back pain affecting 01/17/2016 Overview: 01/17/16 - patient with herniated disc - KJ Encounter for supervision of normal first in second trimester 11/26/2015 04/12/2018 [facility]2015 05/11/2018 Abnormal mammogram 05/30/2015 12/01/2018 Female infertility 04/25/2015 12/01/2018 documented as of this encounter (statuses as of 04/09/2022) [facility] History of Past illness Narrative* Problem Noted Date Resolved Date Polyhydramnios in third trimester 12/23/2020 04/09/2021 GBS bacteriuria 06/07/2020 04/09/2021 History of depression 05/30/2020 04/09/2021 Overview: 05/30/2020Patient has a history of depression and anxiety that was diagnosed several years ago but became worse after of her last child. She is currently taking Celexa that was treated by Paulina Rose and Prachi Louis in the past. 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 She is worried about not taking an antidepressant because she tried to go off it recently and felt worse. She denies any suicidal thoughts. Patient is interested in a referral to the [facility] behavioral services. She has not been happy with the follow-up visits with her provider recently. See phone note dated May [address] Portillo. TKRN Positive GBS test 09/30/2018 11/04/2018 resulting from ass is[employer] reproductive technology, antepartum 03/10/2018 12/01/2018 Overview: 03/10/2018Patient had a frozen embryo transfer 01/21/[address] Simmons. TKRN Previous delivery, antepartum 8 04/09/2021 Overview: 05/30/2020Pt had a previous C section with her first for placenta previa. Had a last .Patient plans on . TKRN Rh negative state in antepartum period 8 04/09/2021 Overview: 03/10/2018Patient is RH negative. She is a RHogam candidate. TKRN History of anxiety 03/10/2018 04/09/2021 Overview: 03/10/2018Patient has a history of anxiety diagnosed 15 years ago. She has been off medication x 6 years. She believes she is doing well off medication. She denies ever havng depression. TKRN Antepartum multigravida of advanced maternal age 0403/10/2018 04/09/2021 Overview: 05/30/2020Patient is 39 years old.Advanced Maternal age discussed. Pt refused handouts on Genetic Amniocentesis and [facility]. Discussed Early Screening In given and discussed. Level II Ultrasound and Dr. Segura's services discussed. Patient desires MaterniT 21 testing and nuchal ultrasound.TKRN Bright red rectal bleeding 06/24/201704/09 Overview: Added automatically from request for surgery [id number] Internal and external hemorrhoids without compli cation 06/24/2017 04/09/2021 Overview: Added automatically from request for surgery [id number] 37 weeks gestation of 05/26/2016 04/12/2018 Placenta previa in second trimester 01/20/2016 07/07/2018 Overview: 04/12/18 - Hx of placenta previa in 1st . Paulina Rose APRN.CNM Back pain affecting 01/17/2016 Overview: 01/17/16 - patient with herniated disc - KJ Encounter for supervision of normal first in second trimester 11/26/2015 04/12/2018 [facility] 05/11/2018 Abnormal mammogram 05/30/2015 12/01/2018 Female infertility 04/25/2015 12/01/2018 documented as of this encounter (statuses as of 04/10/2022) [facility] History of Past illness Narrative* Problem Noted Date Resolved Date Polyhydramnios in third trimester 12/23/2020 04/09/2021 GBS bacteriuria 06/07/2020 04/09/2021 History of depression 05/30/2020 04/09/2021 Overview: 05/30/2020Patient has a history of depression and anxiety that was diagnosed several years ago but became worse after of her last child. She is currently taking Celexa that was treated by Paulina Rose and Prachi Louis in the past. 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 She is worried about not taking an antidepressant because she tried to go off it recently and felt worse. She denies any suicidal thoughts. Patient is interested in a referral to the [facility] services. She has not been happy with the follow-up visits with her provider recently. See phone note dated May [address] Portillo. TKRN Positive GBS test 09/30/2018 11/04/2018 resulting from ass isted reproductive technology, antepartum 03/10/2018 12/01/2018 Overview: 03/10/2018Patient had a frozen embryo transfer 01/21/[address] Simmons. TKRN Previous delivery, antepartum 8 04/09/2021 Overview: 05/30/2020Pt had a previous C section with her first for placenta previa. Had a last .Patient plans on . TKRN Rh negative state in antepartum period 8 04/09/2021 Overview: 03/10/2018Patient is RH negative. She is a RHogam candidate. TKRN History of anxiety 03/10/2018 04/09/2021 Overview: 03/10/2018Patient has a history of anxiety diagnosed 15 years ago. She has been off medication x 6 years. She believes she is doing well off medication. She denies ever havng depression. TKRN Antepartum multigravida of advanced maternal age 0403/10/2018 04/09/2021 Overview: 05/30/2020Patient is 39 years old.Advanced Maternal age discussed. Pt refused handouts on Genetic Amniocentesis and [facility]. Discussed Early Screening In given and discussed. Level II Ultrasound and Dr. Segura's services discussed. Patient desires MaterniT 21 testing and nuchal ultrasound.TKRN Bright red rectal bleeding 06/24/201704/09 Overview: Added automatically from request for surgery [id number] Internal and external hemorrhoids without compli cation 06/24/2017 04/09/2021 Overview: Added automatically from request for surgery [id number] 37 weeks gestation of 05/26/2016 04/12/2018 Placenta previa in second trimester 01/20/2016 07/07/2018 Overview: 04/12/18 - Hx of placenta previa in 1st . Paulina Rose APRN.CNM Back pain affecting 01/17/2016 Overview: 01/17/16 - patient with herniated disc - KJ Encounter for supervision of normal first in second trimester 11/26/2015 04/12/2018 Rh negative status during in first tri [facility] 11/19/2015 05/11/2018 Abnormal mammogram 05/30/2015 12/01/2018 Female infertility 04/25/2015 12/01/2018 documented as of this encounter (statuses as of 05/27/2022) [facility] History of Past illness Narrative* Problem Noted Date Resolved Date Polyhydramnios in third trimester 12/23/2020 04/09/2021 GBS bacteriuria 06/07/2020 04/09/2021 History of depression 05/30/2020 04/09/2021 Overview: 05/30/2020Patient has a history of depression and anxiety that was diagnosed several years ago but became worse after of her last child. She is currently taking Celexa that was treated by Paulina Rose and Prachi Louis in the past. 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 She is worried about not taking an antidepressant because she tried to go off it recently and felt worse. She denies any suicidal thoughts. Patient is interested in a referral to the [facility] services. She has not been happy with the follow-up visits with her provider recently. See phone note dated May [address] Portillo. BLAYNE Positive GBS test 09/30/2018 11/04/2018 resulting from ass isted reproductive technology, antepartum 03/10/2018 12/01/2018 Overview: 03/10/2018Patient had a frozen embryo transfer 01/21/[address] Simmons. TKRN Previous delivery, antepartum 8 04/09/2021 Overview: 05/30/2020Pt had a previous C section with her first for placenta previa. Had a last .Patient plans on . TKRN Rh negative state in antepartum period 8 04/09/2021 Overview: 03/10/2018Patient is RH negative. She is a RHogam candidate. TKRN History of anxiety 03/10/2018 04/09/2021 Overview: 03/10/2018Patient has a history of anxiety diagnosed 15 years ago. She has been off medication x 6 years. She believes she is doing well off medication. She denies ever havng depression. TKRN Antepartum multigravida of advanced maternal age 0403/10/2018 04/09/2021 Overview: 05/30/2020Patient is 39 years old.Advanced Maternal age discussed. Pt refused handouts on Genetic Amniocentesis and [facility]. Discussed Early Screening In given and discussed. Level II Ultrasound and Dr. Segura's services discussed. Patient desires MaterniT 21 testing and nuchal ultrasound.TKRN Bright red rectal bleeding 06/24/201704/09 Overview: Added automatically from request for surgery [id number] Internal and external hemorrhoids without compli cation 06/24/2017 04/09/2021 Overview: Added automatically from request for surgery [id number] 37 weeks gestation of 05/26/2016 04/12/2018 Placenta previa in second trimester 01/20/2016 07/07/2018 Overview: 04/12/18 - Hx of placenta previa in 1st . Paulina Rose APRN.CNM Back pain affecting 01/17/2016 Overview: 01/17/16 - patient with herniated disc - Encounter for supervision of normal first in second trimester 11/26/2015 04/12/2018 Rh negative status during in first tri [facility] 11/19/2015 05/11/2018 Abnormal mammogram 05/30/2015 12/01/2018 Female infertility 04/25/2015 12/01/2018 documented as of this encounter (statuses as of 09/17/2022) [facility] History of Past illness Narrative* Problem Noted Date Resolved Date Polyhydramnios in third trimester 12/23/2020 04/09/2021 GBS bacteriuria 06/07/2020 04/09/2021 History of depression 05/30/2020 04/09/2021 Overview: 05/30/2020Patient has a history of depression and anxiety that was diagnosed several years ago but became worse after of her last child. She is currently taking Celexa that was treated by Paulina Rose and Prachi Louis in the past. 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 She is worried about not taking an antidepressant because she tried to go off it recently and felt worse. She denies any suicidal thoughts. Patient is interested in a referral to the [facility]. She has not been happy with the follow-up visits with her provider recently. See phone note dated May [address] Portillo. TKRN Positive GBS test 09/30/2018 11/04/2018 resulting from ass isted reproductive technology, antepartum 03/10/2018 12/01/2018 Overview: 03/10/2018Patient had a frozen embryo transfer 01/21/[address] Simmons. TKRN Previous delivery, antepartum 8 04/09/2021 Overview: 05/30/2020Pt had a previous C section with her first for placenta previa. Had a last .Patient plans on . TKRN Rh negative state in antepartum period 8 04/09/2021 Overview: 03/10/2018Patient is RH negative. She is a RHogam candidate. TKRN History of anxiety 03/10/2018 04/09/2021 Overview: 03/10/2018Patient has a history of anxiety diagnosed 15 years ago. She has been off medication x 6 years. She believes she is doing well off medication. She denies ever havng depression. TKRN Antepartum multigravida of advanced maternal age 0403/10/2018 04/09/2021 Overview: 05/30/2020Patient is 39 years old.Advanced Maternal age discussed. Pt refused handouts on Genetic Amniocentesis and [facility]. Discussed Early Screening In given and discussed. Level II Ultrasound and Dr. Segura's services discussed. Patient desires MaterniT 21 testing and nuchal ultrasound.TKRN Bright red rectal bleeding 06/24/201704/09 Overview: Added automatically from request for surgery [id number] Internal and external hemorrhoids without compli cation 06/24/2017 04/09/2021 Overview: Added automatically from request for surgery [id number] 37 weeks gestation of 05/26/2016 04/12/2018 Placenta previa in second trimester 01/20/2016 07/07/2018 Overview: 04/12/18 - Hx of placenta previa in 1st . Paulina Rose APRN.CNM Back pain affecting 01/17/2016 Overview: 01/17/16 - patient with herniated disc - Encounter for supervision of normal first in second trimester 11/26/2015 04/12/2018 Rh negative status during in first [facility] 11/19/2015 05/11/2018 Abnormal mammogram 05/30/2015 12/01/2018 Female infertility 04/25/2015 12/01/2018 documented as of this encounter (statuses as of 11/03/2022) [facility] History of Past illness Narrative* Problem Noted Date Resolved Date Polyhydramnios in third trimester 12/23/2020 04/09/2021 GBS bacteriuria 06/07/2020 04/09/2021 History of depression 05/30/2020 04/09/2021 Overview: 05/30/2020Patient has a history of depression and anxiety that was diagnosed several years ago but became worse after of her last child. She is currently taking Celexa that was treated by Paulina Rose and Prachi Louis in the past. 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 She is worried about not taking an antidepressant because she tried to go off it recently and felt worse. She denies any suicidal thoughts. Patient is interested in a referral to the [facility]. She has not been happy with the follow-up visits with her provider recently. See phone note dated May [address] Portillo. TKRN Positive GBS test 09/30/2018 11/04/2018 resulting from ass isted reproductive technology, antepartum 03/10/2018 12/01/2018 Overview: 03/10/2018Patient had a frozen embryo transfer 01/21/[address] Simmons. TKRN Previous delivery, antepartum 8 04/09/2021 Overview: 05/30/2020Pt had a previous C section with her first for placenta previa. Had a last .Patient plans on . TKRN Rh negative state in antepartum period 8 04/09/2021 Overview: 03/10/2018Patient is RH negative. She is a RHogam candidate. TKRN History of anxiety 03/10/2018 04/09/2021 Overview: 03/10/2018Patient has a history of anxiety diagnosed 15 years ago. She has been off medication x 6 years. She believes she is doing well off medication. She denies ever havng depression. TKRN Antepartum multigravida of advanced maternal age 0403/10/2018 04/09/2021 Overview: 05/30/2020Patient is 39 years old.Advanced Maternal age discussed. Pt refused handouts on Genetic Amniocentesis and [facility]. Discussed Early Screening In given and discussed. Level II Ultrasound and Dr. Segura's services discussed. Patient desires MaterniT 21 testing and nuchal ultrasound.TKRN Bright red rectal bleeding 06/24/201704/09 Overview: Added automatically from request for surgery [id number] Internal and external hemorrhoids without compli cation 06/24/2017 04/09/2021 Overview: Added automatically from request for surgery [id number] 37 weeks gestation of 05/26/2016 04/12/2018 Placenta previa in second trimester 01/20/2016 07/07/2018 Overview: 04/12/18 - Hx of placenta previa in 1st . Paulina Rose APRN.CNM Back pain affecting 01/17/2016 Overview: 01/17/16 - patient with herniated disc - Encounter for supervision of normal first in second trimester 11/26/2015 04/12/2018 Rh negative status during in first tri [facility] 11/19/2015 05/11/2018 Abnormal mammogram 05/30/2015 12/01/2018 Female infertility 04/25/2015 12/01/2018 documented as of this encounter (statuses as of 11/18/2022) [facility] History of Past illness Narrative* Problem Noted Date Resolved Date Polyhydramnios in third trimester 12/23/2020 04/09/2021 GBS bacteriuria 06/07/2020 04/09/2021 History of depression 05/30/2020 04/09/2021 Overview: 05/30/2020Patient has a history of depression and anxiety that was diagnosed several years ago but became worse after of her last child. She is currently taking Celexa that was treated by Paulina Rose and Prachi Louis in the past. 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 She is worried about not taking an antidepressant because she tried to go off it recently and felt worse. She denies any suicidal thoughts. Patient is interested in a referral to the [facility]. She has not been happy with the follow-up visits with her provider recently. See phone note dated May [address] Portillo. TKRN Positive GBS test 09/30/2018 11/04/2018 resulting from ass isted reproductive technology, antepartum 03/10/2018 12/01/2018 Overview: 03/10/2018Patient had a frozen embryo transfer 01/21/[address] Simmons. TKRN Previous delivery, antepartum 8 04/09/2021 Overview: 05/30/2020Pt had a previous C section with her first for placenta previa. Had a last .Patient plans on . TKRN Rh negative state in antepartum period 8 04/09/2021 Overview: 03/10/2018Patient is RH negative. She is a RHogam candidate. TKRN History of anxiety 03/10/2018 04/09/2021 Overview: 03/10/2018Patient has a history of anxiety diagnosed 15 years ago. She has been off medication x 6 years. She believes she is doing well off medication. She denies ever havng depression. TKRN Antepartum multigravida of advanced maternal age 0403/10/2018 04/09/2021 Overview: 05/30/2020Patient is 39 years old.Advanced Maternal age discussed. Pt refused handouts on Genetic Amniocentesis and [facility]. Discussed Early Screening In given and discussed. Level II Ultrasound and Dr. Segura's services discussed. Patient desires MaterniT 21 testing and nuchal ultrasound.TKRN Bright red rectal bleeding 06/24/201704/09 Overview: Added automatically from request for surgery [id number] Internal and external hemorrhoids without compli cation 06/24/2017 04/09/2021 Overview: Added automatically from request for surgery [id number] 37 weeks gestation of 05/26/2016 04/12/2018 Placenta previa in second trimester 01/20/2016 07/07/2018 Overview: 04/12/18 - Hx of placenta previa in 1st . Paulina Rose APRN.CNM Back pain affecting 01/17/2016 Overview: 01/17/16 - patient with herniated disc - KJ Encounter for supervision of normal first in second trimester 11/26/2015 04/12/2018 [facility] 05/11/2018 Abnormal mammogram 05/30/2015 12/01/2018 Female infertility 04/25/2015 12/01/2018 documented as of this encounter (statuses as of 11/27/2022) [facility] History of Past illness Narrative* Problem Noted Date Resolved Date Polyhydramnios in third trimester 12/23/2020 04/09/2021 GBS bacteriuria 06/07/2020 04/09/2021 History of depression 05/30/2020 04/09/2021 Overview: 05/30/2020Patient has a history of depression and anxiety that was diagnosed several years ago but became worse after of her last child. She is currently taking Celexa that was treated by Paulina Rose and Prachi Louis in the past. 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 She is worried about not taking an antidepressant because she tried to go off it recently and felt worse. She denies any suicidal thoughts. Patient is interested in a referral to the [facility]. She has not been happy with the follow-up visits with her provider recently. See phone note dated May [address] Portillo. TKRN Positive GBS test 09/30/2018 11/04/2018 resulting from ass isted reproductive technology, antepartum 03/10/2018 12/01/2018 Overview: 03/10/2018Patient had a frozen embryo transfer 01/21/[address] Simmons. TKRN Previous delivery, antepartum 8 04/09/2021 Overview: 05/30/2020Pt had a previous C section with her first for placenta previa. Had a last .Patient plans on . TKRN Rh negative state in antepartum period 8 04/09/2021 Overview: 03/10/2018Patient is RH negative. She is a RHogam candidate. TKRN History of anxiety 03/10/2018 04/09/2021 Overview: 03/10/2018Patient has a history of anxiety diagnosed 15 years ago. She has been off medication x 6 years. She believes she is doing well off medication. She denies ever havng depression. TKRN Antepartum multigravida of advanced maternal age 0403/10/2018 04/09/2021 Overview: 05/30/2020Patient is 39 years old.Advanced Maternal age discussed. Pt refused handouts on Genetic Amniocentesis and [facility]. Discussed Early Screening In given and discussed. Level II Ultrasound and Dr. Segura's services discussed. Patient desires MaterniT 21 testing and nuchal ultrasound.TKRN Bright red rectal bleeding 06/24/201704/09 Overview: Added automatically from request for surgery [id number] Internal and external hemorrhoids without compli cation 06/24/2017 04/09/2021 Overview: Added automatically from request for surgery [id number] 37 weeks gestation of 05/26/2016 04/12/2018 Placenta previa in second trimester 01/20/2016 07/07/2018 Overview: 04/12/18 - Hx of placenta previa in 1st . Paulina Rose APRN.CNM Back pain affecting 01/17/2016 Overview: 01/17/16 - patient with herniated disc - KJ Encounter for supervision of normal first in second trimester 11/26/2015 04/12/2018 Rh negative status during in [facility] 11/19/2015 05/11/2018 Abnormal mammogram 05/30/2015 12/01/2018 Female infertility 04/25/2015 12/01/2018 documented as of this encounter (statuses as of 11/27/2022) [facility] History of Past illness Narrative* Problem Noted Date Resolved Date Polyhydramnios in third trimester 12/23/2020 04/09/2021 GBS bacteriuria 06/07/2020 04/09/2021 History of depression 05/30/2020 04/09/2021 Overview: 05/30/2020Patient has a history of depression and anxiety that was diagnosed several years ago but became worse after of her last child. She is currently taking Celexa that was treated by Paulina Rose and Prachi Louis in the past. 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 She is worried about not taking an antidepressant because she tried to go off it recently and felt worse. She denies any suicidal thoughts. Patient is interested in a referral to the [facility]. She has not been happy with the follow-up visits with her provider recently. See phone note dated May [address] Portillo. TKRN Positive GBS test 09/30/2018 11/04/2018 resulting from ass isted reproductive technology, antepartum 03/10/2018 12/01/2018 Overview: 03/10/2018Patient had a frozen embryo transfer 01/21/[address] Simmons. TKRN Previous delivery, antepartum 8 04/09/2021 Overview: 05/30/2020Pt had a previous C section with her first for placenta previa. Had a last .Patient plans on . TKRN Rh negative state in antepartum period 8 04/09/2021 Overview: 03/10/2018Patient is RH negative. She is a RHogam candidate. TKRN History of anxiety 03/10/2018 04/09/2021 Overview: 03/10/2018Patient has a history of anxiety diagnosed 15 years ago. She has been off medication x 6 years. She believes she is doing well off medication. She denies ever havng depression. TKRN Antepartum multigravida of advanced maternal age 0403/10/2018 04/09/2021 Overview: 05/30/2020Patient is 39 years old.Advanced Maternal age discussed. Pt refused handouts on Genetic Amniocentesis and [facility]. Discussed Early Screening In given and discussed. Level II Ultrasound and Dr. Segura's services discussed. Patient desires MaterniT 21 testing and nuchal ultrasound.TKRN Bright red rectal bleeding 06/24/201704/09 Overview: Added automatically from request for surgery [id number] Internal and external hemorrhoids without compli cation 06/24/2017 04/09/2021 Overview: Added automatically from request for surgery [id number] 37 weeks gestation of 05/26/2016 04/12/2018 Placenta previa in second trimester 01/20/2016 07/07/2018 Overview: 04/12/18 - Hx of placenta previa in 1st . Paulina Rose APRN.CNM Back pain affecting 01/17/2016 Overview: 01/17/16 - patient with herniated disc - Encounter for supervision of normal first in second trimester 11/26/2015 04/12/2018 Rh negative status during in [facility] 11/19/2015 05/11/2018 Abnormal mammogram 05/30/2015 12/01/2018 Female infertility 04/25/2015 12/01/2018 documented as of this encounter (statuses as of 12/22/2022) [facility] History of Past illness Narrative* Problem Noted Date Resolved Date Polyhydramnios in third trimester 12/23/2020 04/09/2021 GBS bacteriuria 06/07/2020 04/09/2021 History of depression 05/30/2020 04/09/2021 Overview: 05/30/2020Patient has a history of depression and anxiety that was diagnosed several years ago but became worse after of her last child. She is currently taking Celexa that was treated by Paulina Rose and Prachi Louis in the past. 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 She is worried about not taking an antidepressant because she tried to go off it recently and felt worse. She denies any suicidal thoughts. Patient is interested in a referral to the [facility]. She has not been happy with the follow-up visits with her provider recently. See phone note dated May [address] Portillo. TKRN Positive GBS test 09/30/2018 11/04/2018 resulting from ass isted reproductive technology, antepartum 03/10/2018 12/01/2018 Overview: 03/10/2018Patient had a frozen embryo transfer 01/21/[address] Simmons. TKRN Previous delivery, antepartum 8 04/09/2021 Overview: 05/30/2020Pt had a previous C section with her first for placenta previa. Had a last .Patient plans on . TKRN Rh negative state in antepartum period 8 04/09/2021 Overview: 03/10/2018Patient is RH negative. She is a RHogam candidate. TKRN History of anxiety 03/10/2018 04/09/2021 Overview: 03/10/2018Patient has a history of anxiety diagnosed 15 years ago. She has been off medication x 6 years. She believes she is doing well off medication. She denies ever havng depression. TKRN Antepartum multigravida of advanced maternal age 0403/10/2018 04/09/2021 Overview: 05/30/2020Patient is 39 years old.Advanced Maternal age discussed. Pt refused handouts on Genetic Amniocentesis and [facility]. Discussed Early Screening In given and discussed. Level II Ultrasound and Dr. Segura's services discussed. Patient desires MaterniT 21 testing and nuchal ultrasound.TKRN Bright red rectal bleeding 06/24/201704/09 Overview: Added automatically from request for surgery [id number] Internal and external hemorrhoids without compli cation 06/24/2017 04/09/2021 Overview: Added automatically from request for surgery [id number] 37 weeks gestation of 05/26/2016 04/12/2018 Placenta previa in second trimester 01/20/2016 07/07/2018 Overview: 04/12/18 - Hx of placenta previa in 1st . Paulina Rose APRN.JOSEFINAM Back pain affecting 01/17/2016 Overview: 01/17/16 - patient with herniated disc - Encounter for supervision of normal first in second trimester 11/26/2015 04/12/2018 Rh negative status during in first tri [facility] 11/19/2015 05/11/2018 Abnormal mammogram 05/30/2015 12/01/2018 Female infertility 04/25/2015 12/01/2018 documented as of this encounter (statuses as of 02/10/2023) [facility] History of Past illness Narrative* Problem Noted Date Resolved Date Polyhydramnios in third trimester 12/23/2020 04/09/2021 GBS bacteriuria 06/07/2020 04/09/2021 History of depression 05/30/2020 04/09/2021 Overview: 05/30/2020Patient has a history of depression and anxiety that was diagnosed several years ago but became worse after of her last child. She is currently taking Celexa that was treated by Paulina Rose and Prachi Louis in the past. 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 She is worried about not taking an antidepressant because she tried to go off it recently and felt worse. She denies any suicidal thoughts. Patient is interested in a referral to the [facility] behavioral services. She has not been happy with the follow-up visits with her provider recently. See phone note dated May [address] Portillo. TKRN Positive GBS test 09/30/2018 11/04/2018 resulting from ass isted reproductive technology, antepartum 03/10/2018 12/01/2018 Overview: 03/10/2018Patient had a frozen embryo transfer 01/21/[address] Simmons. TKRN Previous delivery, antepartum 8 04/09/2021 Overview: 05/30/2020Pt had a previous C section with her first for placenta previa. Had a last .Patient plans on . TKRN Rh negative state in antepartum period 8 04/09/2021 Overview: 03/10/2018Patient is RH negative. She is a RHogam candidate. TKRN History of anxiety 03/10/2018 04/09/2021 Overview: 03/10/2018Patient has a history of anxiety diagnosed 15 years ago. She has been off medication x 6 years. She believes she is doing well off medication. She denies ever havng depression. TKRN Antepartum multigravida of advanced maternal age 0403/10/2018 04/09/2021 Overview: 05/30/2020Patient is 39 years old.Advanced Maternal age discussed. Pt refused handouts on Genetic Amniocentesis and [facility]. Discussed Early Screening In given and discussed. Level II Ultrasound and Dr. Segura's services discussed. Patient desires MaterniT 21 testing and nuchal ultrasound.TKRN Bright red rectal bleeding 06/24/201704/09 Overview: Added automatically from request for surgery [id number] Internal and external hemorrhoids without compli cation 06/24/2017 04/09/2021 Overview: Added automatically from request for surgery [id number] 37 weeks gestation of 05/26/2016 04/12/2018 Placenta previa in second trimester 01/20/2016 07/07/2018 Overview: 04/12/18 - Hx of placenta previa in 1st . Paulina Rose APRN.CNM Back pain affecting 01/17/2016 Overview: 01/17/16 - patient with herniated disc - KJ Encounter for supervision of normal first in second trimester 11/26/2015 04/12/2018 Rh negative status during in first tri mester 11/19/2015 05/11/2018 Abnormal mammogram 05/30/2015 12/01/2018 Female infertility 04/25/2015 12/01/2018 documented as of this encounter (statuses as of 03/11/2023) [facility] History of Past illness Narrative* Problem Noted Date Resolved Date Polyhydramnios in third trimester 12/23/2020 04/09/2021 GBS bacteriuria 06/07/2020 04/09/2021 History of depression 05/30/2020 04/09/2021 Overview: 05/30/2020Patient has a history of depression and anxiety that was diagnosed several years ago but became worse after of her last child. She is currently taking Celexa that was treated by Paulina Rose and Prachi Louis in the past. 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 She is worried about not taking an antidepressant because she tried to go off it recently and felt worse. She denies any suicidal thoughts. Patient is interested in a referral to the [facility] behavioral services. She has not been happy with the follow-up visits with her provider recently. See phone note dated May [address] Portillo. TKRN Positive GBS test 09/30/2018 11/04/2018 resulting from ass isted reproductive technology, antepartum 03/10/2018 12/01/2018 Overview: 03/10/2018Patient had a frozen embryo transfer 01/21/[address] Simmons. TKRN Previous delivery, antepartum 8 04/09/2021 Overview: 05/30/2020Pt had a previous C section with her first for placenta previa. Had a last .Patient plans on . TKRN Rh negative state in antepartum period 8 04/09/2021 Overview: 03/10/2018Patient is RH negative. She is a RHogam candidate. TKRN History of anxiety 03/10/2018 04/09/2021 Overview: 03/10/2018Patient has a history of anxiety diagnosed 15 years ago. She has been off medication x 6 years. She believes she is doing well off medication. She denies ever havng depression. TKRN Antepartum multigravida of advanced maternal age 0403/10/2018 04/09/2021 Overview: 05/30/2020Patient is 39 years old.Advanced Maternal age discussed. Pt refused handouts on Genetic Amniocentesis and [facility]. Discussed Early Screening In given and discussed. Level II Ultrasound and Dr. Segura's services discussed. Patient desires MaterniT 21 testing and nuchal ultrasound.TKRN Bright red rectal bleeding 06/24/201704/09 Overview: Added automatically from request for surgery [id number] Internal and external hemorrhoids without compli cation 06/24/2017 04/09/2021 Overview: Added automatically from request for surgery [id number] 37 weeks gestation of 05/26/2016 04/12/2018 Placenta previa in second trimester 01/20/2016 07/07/2018 Overview: 04/12/18 - Hx of placenta previa in 1st . Paulina Rose APRN.JOSEFINAM Back pain affecting 01/17/2016 Overview: 01/17/16 - patient with herniated disc - Encounter for supervision of normal first in second trimester 11/26/2015 04/12/2018 [facility] 11/[facility] 05/11/2018 Abnormal mammogram 05/30/2015 12/01/2018 Female infertility 04/25/2015 12/01/2018 documented as of this encounter (statuses as of 03/11/2023) [facility] History of Past illness Narrative* Problem Noted Date Diagnosed Date Resolved Date Polyhydramnios in third trimester 12/23/2020 04/09/2021 GBS bacteriuria 06/07/2020 04/09/2021 History of depression 05/30/20202020 Overview: 05/30/2020Patient has a history of depression and anxiety that was diagnosed several years ago but became worse after of her last child. She is currently taking Celexa that was treated by Paulina Rose and Prachi Louis in the past. 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 She is worried about not taking an antidepressant because she tried to go off it recently and felt worse. She denies any suicidal thoughts. Patient is interested in a referral to the [facility] services. She has not been happy with the follow-up visits with her provider recently. See phone note dated May [address] Portillo. TKRN Positive GBS test 09/30/2018 11/04/2018 resulting from ass isted reproductive technology, antepartum 03/10/201811/15 Overview: 03/10/2018Patient had a frozen embryo transfer 01/21/[address] Simmons. TKRN Previous delivery, antepartum 03/10/2018 04/09/2021 Overview: 05/30/2020Pt had a previous C section with her first for placenta previa. Had a last .Patient plans on . TKRN Rh negative state in antepartum period 03/10/2018 04/09/2021 Overview: 03/10/2018Patient is RH negative. She is a RHogam candidate. TKRN History of anxiety 03/10/2018 Overview: 03/10/2018Patient has a history of anxiety diagnosed 15 years ago. She has been off medication x 6 years. She believes she is doing well off medication. She denies ever havng depression. TKRN Antepartum multigravida of a dvanced maternal age 0403/10/2018 04/09/2021 Overview: 05/30/2020Patient is 39 years old.Advanced Maternal age discussed. Pt refused handouts on Genetic Amniocentesis and [facility]. Discussed Early Screening In given and discussed. Level II Ultrasound and Dr. Segura's services discussed. Patient desires MaterniT 21 testing and nuchal ultrasound.TKRN Bright red rectal bleeding 06/24/2017 0 04/09/2021 Overview: Added automatically from request for surgery [id number] Internal and external hemorr hoids without complication 06/24/2017 04/09/2021 Overview: Added automatically from request for surgery [id number] 37 weeks gestation of 05/26/2016 04/12/2018 Placenta previa in second trimester 01/20/2016 07/07/2018 Overview: 04/12/18 - Hx of placenta previa in 1st . Paulina Rose APRN.CNM Back pain affecting 01/17/2016 11/04/2018 Overview: 01/17/16 - patient with herniated disc - Encounter for supervision of normal first in second trimester 11/26/2015 04/12/2018 Rh negative status during pr egnancy in first trimester 11/19/2015 05/11/2018 Abnormal mammogram 05/30/2015 9 Female infertility 04/25/2015 9 documented as of this encounter (statuses as of 06/17/2023) [facility] History of Past illness Narrative* Problem Noted Date Diagnosed Date Resolved Date Polyhydramnios in third trimester 12/23/2020 04/09/2021 GBS bacteriuria 06/07/2020 04/09/2021 History of depression 05/30/20202020 Overview: 05/30/2020Patient has a history of depression and anxiety that was diagnosed several years ago but became worse after of her last child. She is currently taking Celexa that was treated by Paulina Rose and Prachi Louis in the past. 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 She is worried about not taking an antidepressant because she tried to go off it recently and felt worse. She denies any suicidal thoughts. Patient is interested in a referral to the [facility] services. She has not been happy with the follow-up visits with her provider recently. See phone note dated May [address] Portillo. TKRN Positive GBS test 09/30/2018 11/04/2018 resulting from ass isted reproductive technology, antepartum 03/10/201811/15 Overview: 03/10/2018Patient had a frozen embryo transfer 01/21/[address] Simmons. TKRN Previous delivery, antepartum 03/10/2018 04/09/2021 Overview: 05/30/2020Pt had a previous C section with her first for placenta previa. Had a last .Patient plans on . TKRN Rh negative state in antepartum period 03/10/2018 04/09/2021 Overview: 03/10/2018Patient is RH negative. She is a RHogam candidate. TKRN History of anxiety 03/10/2018 Overview: 03/10/2018Patient has a history of anxiety diagnosed 15 years ago. She has been off medication x 6 years. She believes she is doing well off medication. She denies ever havng depression. TKRN Antepartum multigravida of a dvanced maternal age 0403/10/2018 04/09/2021 Overview: 05/30/2020Patient is 39 years old.Advanced Maternal age discussed. Pt refused handouts on Genetic Amniocentesis and [facility]. Discussed Early Screening In given and discussed. Level II Ultrasound and Dr. Segura's services discussed. Patient desires MaterniT 21 testing and nuchal ultrasound.TKRN Bright red rectal bleeding 06/24/2017 0 04/09/2021 Overview: Added automatically from request for surgery [id number] Internal and external hemorr hoids without complication 06/24/2017 04/09/2021 Overview: Added automatically from request for surgery [id number] 37 weeks gestation of 05/26/2016 04/12/2018 Placenta previa in second trimester 01/20/2016 07/07/2018 Overview: 04/12/18 - Hx of placenta previa in 1st . Paulina Rose APRN.CNM Back pain affecting 01/17/2016 11/04/2018 Overview: 01/17/16 - patient with herniated disc - KJ Encounter for supervision of normal first in second trimester 11/26/2015 04/12/2018 Rh negative status during pr egnancy in first trimester 11/19/2015 05/11/2018 Abnormal mammogram 05/30/2015 9 Female infertility 04/25/2015 9 documented as of this encounter (statuses as of 10/11/2023) [facility] History of Past illness Narrative* Problem Noted Date Diagnosed Date Resolved Date Polyhydramnios in third trimester 12/23/2020 04/09/2021 GBS bacteriuria 06/07/2020 04/09/2021 History of depression 05/30/20202020 Overview: 05/30/2020Patient has a history of depression and anxiety that was diagnosed several years ago but became worse after of her last child. She is currently taking Celexa that was treated by Paulina Rose and Prachi Louis in the past. 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 She is worried about not taking an antidepressant because she tried to go off it recently and felt worse. She denies any suicidal thoughts. Patient is interested in a referral to the [facility] services. She has not been happy with the follow-up visits with her provider recently. See phone note dated May [address] Portillo. TKRN Positive GBS test 09/30/2018 11/04/2018 resulting from ass isted reproductive technology, antepartum 03/10/201811/15 Overview: 03/10/2018Patient had a frozen embryo transfer 01/21/[address] Simmons. TKRN Previous delivery, antepartum 03/10/2018 04/09/2021 Overview: 05/30/2020Pt had a previous C section with her first for placenta previa. Had a last .Patient plans on . TKRN Rh negative state in antepartum period 03/10/2018 04/09/2021 Overview: 03/10/2018Patient is RH negative. She is a RHogam candidate. TKRN History of anxiety 03/10/2018 Overview: 03/10/2018Patient has a history of anxiety diagnosed 15 years ago. She has been off medication x 6 years. She believes she is doing well off medication. She denies ever havng depression. TKRN Antepartum multigravida of a dvanced maternal age 0403/10/2018 04/09/2021 Overview: 05/30/2020Patient is 39 years old.Advanced Maternal age discussed. Pt refused handouts on Genetic Amniocentesis and [facility]. Discussed Early Screening In given and discussed. Level II Ultrasound and Dr. Segura's services discussed. Patient desires MaterniT 21 testing and nuchal ultrasound.TKRN Bright red rectal bleeding 06/24/2017 0 04/09/2021 Overview: Added automatically from request for surgery [id number] Internal and external hemorr hoids without complication 06/24/2017 04/09/2021 Overview: Added automatically from request for surgery [id number] 37 weeks gestation of 05/26/2016 04/12/2018 Placenta previa in second trimester 01/20/2016 07/07/2018 Overview: 04/12/18 - Hx of placenta previa in 1st . Paulina Rose APRN.CNM Back pain affecting 01/17/2016 11/04/2018 Overview: 01/17/16 - patient with herniated disc - KJ Encounter for supervision of normal first in second trimester 11/26/2015 04/12/2018 Rh negative status during pr egnancy in first trimester 11/19/2015 05/11/2018 Abnormal mammogram 05/30/2015 9 Female infertility 04/25/2015 9 documented as of this encounter (statuses as of 12/06/2023) [facility] [place] [facility] Diagnosis Encounter for gynecological examination (general) (routine) without abnormal findings Encounter for screening mammogram for breast cancer mood disturbance Mental disorders of mother, with delivery, with mention of complication [facility] Bursitis of left foot- Primary Tailor's bunion of left foot Acquired hallux valgus of left foot Hallux valgus (acquired) [facility] Pain Generalized [facility] Diagnosis Bursitis of left foot- Primary Tailor's bunion of left foot Acquired hallux valgus of left foot Hallux valgus (acquired) [facility] Tailor's bunion of left foot- Primary Acquired hallux valgus of left foot Hallux valgus (acquired) [facility] Diagnosis Menorrhagia with regular cycle- Primary Excessive or frequent menstruation [facility] Diagnosis Encounter for gynecological examination (general) (routine) without abnormal findings- Primary [facility] Diagnosis mood disturbance Mental disorders of mother, with delivery, with mention of complication [facility] Diagnosis Upper respiratory tract infection, unspecified type- Primary [facility] Diagnosis Encounter for screening mammogram for breast cancer documented in this encounter [facility] for referral (narrative)* Diagnostic Procedure Only (Routine) - Pending Review Specialty Diagnoses / Procedures Referred By Alfredo t Referred To Contact [facility] Diagnoses Encounter for gynecological examination (general) (routine) without abnormal findings Encounter for screening mammogram for breast cancer Procedures ERICA SCREENING W NAM SCREENING DIGITAL BREAST TOMOSYNTHESIS BI SCREENING MAMMOGRAPHY BI 2-VIEW BREAST INC Dragan Olivares MD [address] [place] [address] [facility] [address] [place] [address] Referral ID Status Reason Start Date Expiration Date Visits Requested Visits Authorized [id number] Pending Review Auto-Generat ed Referral 02/11/2022 03/13/2023 1 1 [facility] for referral (narrative)* Diagnostic Procedure Only (Routine) - Closed Specialty Diagnoses / Procedures Referred By Alfredo t Referred To Contact XR IMAGING Diagnoses Pain Procedures XR FOOT GENERAL 3V AP/LAT/OBL LEFT RADEX FOOT COMPLETE MINIMUM 3 VIEWS [facility] [address] [place] [address] Xr Imaging Referral ID Status Reason Start Date Expiration Date V isits Requested Visits Authorized [id number] Closed Auto-Generate d Referral 03/31/2022 04/30/2023 1 1 [facility] for referral (narrative)* Diagnostic Procedure Only (Routine) - Pending Review Specialty Diagnoses / Procedures Referred By Alfredo t Referred To Contact [facility] Diagnoses Encounter for screening mammogram for breast cancer Procedures ERICA SCREENING SCREENING MAMMOGRAPHY BI 2-VIEW BREAST INC Marycruz Reddy MD [address] [place] [address] [facility] [address] [place] [address] Referral ID Status Reason Start Date Expiration Date Visits Requested Visits Authorized [id number] Pending Review Auto-Generat ed Referral 12/01/2023 12/30/2024 1 1 [facility] for visit Narrative* Diagnostic Procedure Only (Routine) - Closed Specialty Diagnoses / Procedures Referred By Contac t Referred To Contact XR IMAGING Diagnoses Pain Procedures XR FOOT GENERAL 3V AP/LAT/OBL LEFT RADEX FOOT COMPLETE MINIMUM 3 VIEWS [facility] [place] [address] Xr Imaging Referral ID Status Reason Start Date Expiration Date V isits Requested Visits Authorized [id number] Closed Auto-Generate d Referral 03/31/2022 04/30/[address] 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 Advance Directive(s) 07/12/2017 2:16 PM Documents on File Type Date Recorded Patient Protective Signal Operations Supervisor Expl anation Advance Directive(s) 07/12/2017 2:16 PM Medications Administered Section Inactive Administered Medications - up to 3 most recent administrations Medication Order MAR Action Action Date Dose Rate Site bupivacaine (PF) 0.5 % (5 mg/mL) 2.5 mg injection 2.5 mg (0.5 mL), INTRA-ARTICULAR, ONCE, 1 dose, On Wed05/27/22 at 0900 Given 05/27/2022 12:42 PM EDT 2.5 mg Foot, Left dexAMETHasone sodium phosphate 2 mg injection (DECADRON) 2 mg, INTRA-ARTICULAR, ONCE, 1 dose, On Wed05/27/22 at 0900 Given 05/27/2022 12:42 PM EDT 2 mg Foot , Left triamcinolone acetonide 5 mg injection (KeNALog 10) 5 mg, INTRA-ARTICULAR, ONCE, 1 dose, On Wed05/27/22 at 0900 Given 05/27/2022 12:43 PM EDT 5 mg Foot , Left Health Concerns Infection Onset Date Last Indicated Resolved Time COVID-19 Rule-Out 10/11/2023 10/11/2023 Additional Source Comments INFORMATION SOURCE (unrecogn ized section and content) DATE CREATED AUTHOR AUTHOR'S ORGANIZ ATION 12/06/2023 [facility] Source Comments (unrecognize d section and content) In the event this informatio n is protected by the Federal Confidentiality of Alcohol and Drug Abuse Patient Records regulations: The Federal rules restrict any use of the information to criminally investigate or prosecute any alcohol or drug abuse patient.[facility] the event this information is protected by the Federal Confidentiality of Alcohol and Drug Abuse Patient Records regulations: The Federal rules restrict any use of the information to criminally investigate or prosecute any alcohol or drug abuse patient.[facility] the event this information is protected by the Federal Confidentiality of Alcohol and Drug Abuse Patient Records regulations: The Federal rules restrict any use of the information to criminally investigate or prosecute any alcohol or drug abuse patient.[facility] the event this information is protected by the Federal Confidentiality of Alcohol and Drug Abuse Patient Records regulations: The Federal rules restrict any use of the information to criminally investigate or prosecute any alcohol or drug abuse patient.[facility] the event this information is protected by the Federal Confidentiality of Alcohol and Drug Abuse Patient Records regulations: The Federal rules restrict any use of the information to criminally investigate or prosecute any alcohol or drug abuse patient.[facility] the event this information is protected by the Federal Confidentiality of Alcohol and Drug Abuse Patient Records regulations: The Federal rules restrict any use of the information to criminally investigate or prosecute any alcohol or drug abuse patient.[facility] the event this information is protected by the Federal Confidentiality of Alcohol and Drug Abuse Patient Records regulations: The Federal rules restrict any use of the information to criminally investigate or prosecute any alcohol or drug abuse patient.[facility] the event this information is protected by the Federal Confidentiality of Alcohol and Drug Abuse Patient Records regulations: The Federal rules restrict any use of the information to criminally investigate or prosecute any alcohol or drug abuse patient.[facility] the event this information is protected by the Federal Confidentiality of Alcohol and Drug Abuse Patient Records regulations: The Federal rules restrict any use of the information to criminally investigate or prosecute any alcohol or drug abuse patient.[facility] the event this information is protected by the Federal Confidentiality of Alcohol and Drug Abuse Patient Records regulations: The Federal rules restrict any use of the information to criminally investigate or prosecute any alcohol or drug abuse patient.[facility] the event this information is protected by the Federal Confidentiality of Alcohol and Drug Abuse Patient Records regulations: The Federal rules restrict any use of the information to criminally investigate or prosecute any alcohol or drug abuse patient.[facility] the event this information is protected by the Federal Confidentiality of Alcohol and Drug Abuse Patient Records regulations: The Federal rules restrict any use of the information to criminally investigate or prosecute any alcohol or drug abuse patient.[facility] the event this information is protected by the Federal Confidentiality of Alcohol and Drug Abuse Patient Records regulations: The Federal rules restrict any use of the information to criminally investigate or prosecute any alcohol or drug abuse patient.[facility] the event this information is protected by the Federal Confidentiality of Alcohol and Drug Abuse Patient Records regulations: The Federal rules restrict any use of the information to criminally investigate or prosecute any alcohol or drug abuse patient.[facility] the event this information is protected by the Federal Confidentiality of Alcohol and Drug Abuse Patient Records regulations: The Federal rules restrict any use of the information to criminally investigate or prosecute any alcohol or drug abuse patient.[facility] the event this information is protected by the Federal Confidentiality of Alcohol and Drug Abuse Patient Records regulations: The Federal rules restrict any use of the information to criminally investigate or prosecute any alcohol or drug abuse patient.[facility] Reason for Visit (unrecogniz ed section and content) Reason Comments Pain Reason Comments Follow Up Pain Reason Comments Established Patient Pain Follow Up Reason Comments Established Patient Follow Up Pain Reason Comments Menstrual Problem Reason Comments schedule surgery Reason Comments Yearly Exam Reason Comments Refill Request Reason Comments Sore Throat swollen glands and b odyaches x 2 days Care Teams (unrecognized sec tion and content) Food And Nutrition Teacher Relationship Specialty Start Date End Date Marycruz Mcclure MD [address] [place] [address] PCP - General Family Practice 05/02/21 Lucie Lucio LPN LPN 02/28/15 Food And Nutrition Teacher Relationship Specialty Start Date End Date Marycruz Mcclure MD [address] [facility] [place] [address] PCP - General Family Practice 05/02/21 Lucie Lucio LPN LPN 02/28/15 Food And Nutrition Teacher Relationship Specialty Start Date End Date Marycruz Mcclure MD [address] [facility] [place] [address] PCP - General Family Practice 05/02/21 Lucie Lucio LPN LPN 02/28/15 Food And Nutrition Teacher Relationship Specialty Start Date End Date Marycruz Mcclure MD [address] [facility] [place] [address] PCP - General Family Medicine 05/02/21 Lucie Lucio LPN LPN 02/28/15 Food And Nutrition Teacher Relationship Specialty Start Date End Date Marycruz Mcclure MD [address] [facility] [place] [address] PCP - General Family Medicine 05/02/21 Lucie Lucio LPN LPN 02/28/15 Food And Nutrition Teacher Relationship Specialty Start Date End Date Marycruz Mcclure MD [address] [place] [address] PCP - General Family Medicine 05/02/21 Lucie Lucio LPN LPN 02/28/15 Food And Nutrition Teacher Relationship Specialty Start Date End Date Marycruz Mcclure MD [address] [place] [address] PCP - General Family Medicine 05/02/21 Lucie Lucio LPN LPN 02/28/15 Food And Nutrition Teacher Relationship Specialty Start Date End Date Marycruz Mcclure MD [address] [place] [address] PCP - General Family Medicine 05/02/21 Lucie Lucio LPN LPN 02/28/15 Food And Nutrition Teacher Relationship Specialty Start Date End Date Marycruz Mcclure MD [address] [place] [address] PCP - General Family Medicine 05/02/21 Lucie Lucio LPN LPN 02/28/15 Food And Nutrition Teacher Relationship Specialty Start Date End Date Marycruz Mcclure MD [address] [place] [address] PCP - General Family Medicine 05/02/21 Lucie Lucio LPN LPN 02/28/15 Food And Nutrition Teacher Relationship Specialty Start Date End Date Marycruz Mcclure MD [address] [place] [address] PCP - General Family Medicine 05/02/21 Lucie Lucio LPN LPN 02/28/15 Food And Nutrition Teacher Relationship Specialty Start Date End Date Marycruz Mcclure MD [address] [facility] [place] [address] PCP - General Family Medicine 05/02/21 Lucie Lucio LPN LPN 02/28/15 FOR RECORDS PERTAINING TO PATIENTS WHO ARE OR HAVE BEEN ENROLLED IN A CHEMICAL DEPENDENCY/SUBSTANCEABUSE PROGRAM, SOME INFORMATION MAY BE OMITTED. This clinical summary was aggregated from multiple sources. Caution should be exercised in using it in the provision of clinical care. This summary normalizes information from multiple sources, and as a consequence, information in this document may materially change the coding, format and clinical context of patient data. In addition, data may be omitted in some cases. CLINICAL DECISIONS SHOULD BE BASED ON THE PRIMARY CLINICAL RECORDS. [employer] [facility] provides no warranty or guarantee of the accuracy or completeness of information in this document.
== END | disposition home or self-care (01) ==
PROVIDERS: PCP Nurse Practitioner Primary Care; Referring Provider Chiropractor; Visit Provider Chiropractor
DX: M51.16 Intervertebral disc disorders with radiculopathy, lumbar region (principal)
CPT/HCPCS: 72148

== ENCOUNTER 2024-07-18 11:05 | Observation (INO) | payer BC, SELFPAY ==
[2024-07-07 09:39] LABS: Absolute Lymphocyte Count 1.63 X10^3/uL (0.83-4.51); Absolute Neutrophil Count 2.2 X10^3/uL (2.0-7.7); Basophil# 0.02 X10^3/uL; Basophil% 0.5 % (0-1); Eosinophil# 0.05 X10^3/uL; Eosinophils% 1.2 % (0-5); Hemoglobin 11.7 g/dL (12.0-15.0); Lymphocyte # 1.63 X10^3/ul (0.83-4.51); Lymphocyte % 38.6 % (19-41); Mean Corp Hgb Conc 31.6 g/dL (32-36); Mean Corpuscular Hgb 27.3 pg (27.0-32.0); Mean Corpuscular Volume 86.4 fL (81-99); Mean Platelet Vol. 10.2 fl (6.2-12.0); Monocyte# 0.27 X10^3/uL; Monocyte% 6.4 % (0-10); NRBC Flagged by Analyzer 0 % (0-5); Neutrophil # 2.24 X10^3/uL (2.7-7.7); Neutrophil % 53.1 % (47-70); Platelet Count 214 K/mm3 (150-450); RBC Distribution Width CV 13.4 % (11.6-14.6); Red Blood Count 4.28 M/mm3 (4.2-5.4); White Blood Count 4.2 K/mm3 (4.4-11.0)
[2024-07-07 10:07] LABS: Anion Gap 4 (5-15); BUN 13 mg/dL (7-18); BUN/Creat Ratio 13.9 RATIO (10-20); Calcium,Total 8.3 mg/dL (8.5-10.1); Chloride 109 mmol/L (98-107); Creatinine, Serum 0.94 mg/dL (0.55-1.02); EST Glomerular Filtration Rate 70 mL/min (>60); Est Glom Filt Rate - Afr Amer 84 mL/min (>60); Glucose 116 mg/dL (74-106); Potassium 3.7 mmol/L (3.5-5.1); Sodium Level 140 mmol/L (136-145)
[2024-07-07 10:12] LABS: Magnesium 2.3 mg/dL (1.6-2.6)
[2024-07-07 10:46] LABS: HIV - WCH Non-Reactive (Nonreactive); Hepatitis B Surface Antibody Reactive; Hepatitis C Antibody Non-Reactive (Nonreactive)
[2024-07-08 09:08] LABS: Hepatitis A AB, Total Negative (Negative)
[2024-07-18] VITALS (24 sets, daily range): BP systolic 93–129; BP diastolic 57–83; PULSE 78–118; RESP 12–19; TEMP 36.2–36.8; O2SAT 87–100; BMI 26.6
[2024-07-18] MEDS: Magnesium 1 GM over 15 mins IV (06:11)
[2024-07-18] MEDS: Acetaminophen 500 MG Tablet 1000 MG PO ×3 (06:11→23:06)
[2024-07-18] MEDS: Lactated Ringers 1,000 ML 15 ML IV ×2 (06:11→13:56)
--- NOTE | 2024-07-18 06:36 | PRE.ANES_ITS ---
ASA Classification* ASA Classification ASA Classification: 2 Assessment & Plan Anesthesia* Anesthesia Assessment Anesthesia Assessment: Discussed sedation and/or anesthesia options, risks, benefits, and alternatives with patient/parents/legal guardian/POA. Questions invited. The patient/parents/legal guardian/POA seems to understand and agrees to proceed with anesthesia plan. Reviewed the physical assessment, medical history, allergy history and patient home medications list prior to surgery/procedure/anesthetic and documented any changes. Performed airway and anesthesia risk assessments. Anesthesia Type Anesthesia Type: General History Source History Obtained from:: Patient and Chart Anesthesia Focused Assessment* Temperature: 97.5 F Pulse Rate: 93 Blood Pressure: 117/83 Respiratory Rate: 16 Pulse Ox: 100 Oxygen Delivery Method: Room Air Airway Assessment Mouth opens: >3 cm Mallampati Score: IV Teeth Condition: Caps/Crowns (Patient has 3 crowns on her molars. All are tight.) Neck Range of motion (ROM): Full ROM Focused Labs Anesthesia Preop lab: CBC WBC 4.2 K/mm3 (4.4-11.0) L 07/07/24 09:23 RBC 4.28 M/mm3 (4.2-5.4) 07/07/24 09:23 Hgb 11.7 g/dL (12.0-15.0) L 07/07/24 09:23 Hct 37.0 % (37-47) 07/07/24 09:23 Plt Count 214 K/mm3 (150-450) 07/07/24 09:23 CHEMISTRY Potassium 3.7 mmol/L (3.5-5.1) 07/07/24 09:23 Sodium 140 mmol/L (136-145) 07/07/24 09:23 Magnesium 2.3 mg/dL (1.6-2.6) 07/07/24 09:22 BUN 13 mg/dL (7-18) 07/07/24 09:23 Creatinine 0.94 mg/dL (0.55-1.02) 07/07/24 09:23 Glucose 116 mg/dL (74-106) H 07/07/24 09:23 COAG Urine Test Negative Negative 05/01/21 07:32 Pre-Assessment Diagnosis/Proposed Procedure Planned Operative Procedure(s): L5-S1 minimally invasive transformaminal lumbar interbody fusion Anesthesia History Anesthesia History - police liaison officer: Anesthesia History - police liaison officer Hx Hospitalization No 07/04/24 09:10 Any Problems With Anesthesia No 07/04/24 09:10 Cholinesterase deficiency No 07/04/24 09:10 You/Your Family Experience No 07/04/24 09:10 fever (hyperthermia) with Relationship Recent Exposure to Contagious No 07/18/24 06:06 Disease Does patient have nerve No 07/04/24 09:10 stimulator Patient instructed to have device shut off --Does patient have Pacemaker No 07/18/24 06:06 or ICD? When Was Last Pacemaker Check QUESTION #4 FULL TEXT: You/Your Family Experience fever (hyperthermia) with Anesthesia Last Oral Intake Last Oral intake: Last Oral Intake NPO since 22:00 07/18/24 06:06 Meds taken in AM with sips of water? Meds patient instructed to take am of surgery PONV PONV - police liaison officer: PONV - police liaison officer Female Yes 07/04/24 09:10 HX of Motion Sickness Yes 07/04/24 09:10 HX of N/V After Surgery No 07/04/24 09:10 Non-Smoker Yes 07/04/24 09:10 Duration of Surgery greater Yes 07/04/24 09:10 than 60 minutes Number of Risk Factors 4 07/04/24 09:10 PONV Score Severe Risk 07/04/24 09:10 Height & Weight Height & Weight: Anesthesia: Height & Weight Height 5 ft 4 in 07/18/24 06:06 Weight: 70.5 kg 07/18/24 06:06 Body Mass Index (BMI) 26.6 07/18/24 06:06 Respiratory Assessment Respiratory Assessment - police liaison officer: Respiratory Tract Infection Hx - police liaison officer Hx Respiratory Tract Infection Yes: tested + for COVID 07/04/24 09:10 - PT FEELING BETTER WITH NO SYMPTOMS STOP Sleep Apnea STOP Sleep Apnea - police liaison officer: STOP Sleep Apnea - police liaison officer Hx Hypertension No 07/04/24 09:10 Hx Sleep Apnea No 07/04/24 09:10 CPAP BIPAP Do you snore loudly (louder No 07/04/24 09:10 than talking or can be heard Do you often feel tired/ No 07/04/24 09:10 fatigued/ sleepy during daytime? Has anyone observed you stop No 07/04/24 09:10 breathing during sleep? STOP Results Negative 07/04/24 09:10 QUESTION #5 FULL TEXT : Do you snore loudly (louder than talking or can be heard through closed doors)? Tobacco Use History Tobacco Use History - police liaison officer: Tobacco Use History - police liaison officer Tobacco Use Smoking Status Former smoker 07/04/24 09:10 Hx Tobacco Use No 07/04/24 09:10 Years Smoking Packs Smoked per Day Smoking Cessation Date was No - quit smoking greater 07/04/24 09:10 within the last 15 years than 15 years ago Hx Smoking Cessation Date 04/15/08 07/04/24 09:10 Hx Smoking Cessation No 07/04/24 09:10 Counseling Hematologic Medial History Hematologic Hx - police liaison officer: Hematologic Medical Hx - customer service voice Hx of Blood Transfusion No 07/04/24 09:10 Hx of Transfusion in last 3 No 07/04/24 09:10 Months Date of Last Transfusion (if within last 3 months) Ever experience any problems No 07/04/24 09:10 with transfusion(s)? Specify any problems Hx of Preganancy in last 3 N/A 07/04/24 09:10 Months Nurse Filling Out Transfusion NBUCHER 07/04/24 09:10 & Questions: Date: 07/04/24 07/04/24 09:10 Time: 09:11 07/04/24 09:10 Patient unable to answer at this time (ie. confused, unrespo /Reproduction History /Reproductive History - police liaison officer: /Reproductive Hx- police liaison officer Hx Now No 07/04/24 09:10 Gestational Age (in weeks): EDC: Hx Hx Para Hx Section SAB No 07/04/24 09:10 Active Medications Active Medications: Current Medications Generic Name Dose Route Start Last Admin Trade Name Freq PRN Reason Stop Dose Admin Acetaminophen 1,000 mg 07/18/24 07:30 07/18/24 06:11 Acetaminophen 500 Mg Tablet PO 07/18/24 07:31 1,000 mg X1 ONE Administration Cefazolin Sodium 2 gm/ Sodium 110 mls @ 150 mls/hr 07/18/24 07:30 Chloride IV 07/18/24 08:13 PREOP ONE Magnesium Sulfate 1 gm/ 102 mls @ 408 mls/hr 07/18/24 07:30 07/18/24 06:11 Dextrose IV 07/18/24 07:44 408 mls/hr X1 ONE Administration Lactated Ringer's 1,000 mls @ 15 mls/hr 07/18/24 06:00 07/18/24 06:11 IV 15 mls/hr .Q48H EUFEMIA Administration Insulin Human Lispro 1 - 6 unit 07/18/24 07:30 Insulin Lispro 100 Unit/Ml Insuln.Pen SC Q4H PRN PRN BG>/= 180, SEE PROTOCOL Protocol PFSH Medical History COVID Wears hearing aid Loss of hearing Depression Restless legs History of chemical tubal occlusion Wears glasses Wears contact lenses Anxiety Alcohol use Back pain Injury of back Former smoker History of herniated intervertebral disc Stomach ulcer Home Medications ?Medication ?Instructions ?Recorded ?Last Taken ?Type ibuprofen 600 mg tablet 600 mg PO Q6H PRN PRN Pain Score 12/29/20 Unknown Rx 1-3 #30 tabs cholecalciferol (vitamin D3) 25 25 mcg PO DAILY 04/24/21 07/17/24 History mcg (1,000 unit) chewable tablet (Vitamin D3) citalopram 40 mg tablet 40 mg PO DAILY 04/24/21 07/17/24 History bupropion HCl 150 mg 24 hr tablet, 150 mg PO QDAY 05/05/24 07/17/24 History extended release tizanidine 2 mg tablet 2 mg PO QHS PRN muscle spasticity 05/05/24 07/12/24 History Allergy/AdvReac Type Severity Reaction Status Date / Time morphine AdvReac Itching Verified 07/18/24 06:05 Family History Other Alcoholism CVA (cerebral vascular accident) Heart disease Osteoporosis Thyroid disorder Surgical History History of hysteroscopy History of tonsillectomy and adenoidectomy Hx of laparoscopy History of foot surgery History of delivery Social History Smoking Status: Former smoker alcohol intake: current alcohol intake frequency: holidays/special occasions only substance use type: does not use what type of physical activity do you participate in: yoga frequency: 3-4 times per week Review of Systems (Anesthesia) ROS Narrative System reviewed and no additional complaints, except as documented.
--- NOTE | 2024-07-18 07:25 | HP.PCM_ITS ---
History and Physical Date of Admission: 07/18/24 MR#: [id number] Acct: [id number] Name: VI CORREA Rep #: [id number] : 1980 Provider: Dr. Mac Mcintyre MD Age/Sex: 43/F Location: [facility] Status: Signed Intake Vital Signs 05/05/2408:24 Height 5 ft 4 in Weight: 153 lb BMI 26.2 Intake Visit Reasons: lumbar spine Accompanied by: Is patient in pain?: No Allergies morphine Adverse Reaction (Verified 07/04/24 09:07) Itching Medications ?Medication ?Instructions ?Recorded ?Confirmed ?Type ibuprofen 600 mg tablet 600 mg PO Q6H PRN PRN Pain Score 12/29/20 07/07/24 Rx 1-3 #30 tabs cholecalciferol (vitamin D3) 25 25 mcg PO DAILY 04/24/21 07/07/24 History mcg (1,000 unit) chewable tablet (Vitamin D3) citalopram 40 mg tablet 40 mg PO DAILY 04/24/21 07/07/24 History bupropion HCl 150 mg 24 hr tablet, 150 mg PO QDAY 05/05/24 07/07/24 History extended release tizanidine 2 mg tablet 2 mg PO QHS PRN muscle spasticity 05/05/24 07/07/24 History segesterone acet 0.15 mg-ethinyl 1 vag ring vaginal QMONTH 07/04/24 07/07/24 History estradiol 0.013 mg/24 hr vaginal ring ([place]) PFSH Medical History COVID Wears hearing aid Loss of hearing Depression Restless legs History of chemical tubal occlusion Wears glasses Wears contact lenses Anxiety Alcohol use Back pain Injury of back Former smoker History of herniated intervertebral disc Stomach ulcer Surgical History History of hysteroscopy History of tonsillectomy and adenoidectomy Hx of laparoscopy History of foot surgery History of delivery Family History Other Alcoholism CVA (cerebral vascular accident) Heart disease Osteoporosis Thyroid disorder Social History Smoking Status: Former smoker alcohol intake: current alcohol intake frequency: holidays/special occasions only substance use type: does not use what type of physical activity do you participate in: yoga frequency: 3-4 times per week HPI lumbar spine Details: This documentation accurately reflects the service provided and the decisions made by me, Dr. Mac Mcintyre MD 07/07/24 1322. Part of today?s visit was documented by Noelle URENA , acting as scribe. VI CORREA is a 43 year old F here today for Pre-Op D.O.S 07/18/2024 she is having done L5-S1 Minimally Invasive Transforaminal Lumbar interbody fusion. *Patient did test Positive for Covid on 07/01/2024. 05/05/24: VI CORREA is a 43 year old F here today for low back pain. Pt. advises she has had a herniated disc for 11 years but has been experiencing increased pain for a about a year and a half. She states she fell down her stairs in August of 2022. She was seen at the [facility] where xrays of her right hip were taken and were negative for fracture. She continued to have pain and had been seeing Dr. Baires for care transition manager. She states the pain is actually worse on the left side of her low back. She has done PT as well as pain management for injections and nerve ablations with Dr. Meadows. Dr. Baires ordered an lumbar spine MRI. She has been seeing Dr. Smith at the [facility] who recommended a disc replacement but it was denied her insurance. Vi had a lumbar disc herniation about 11 years ago which was treated with epidural injections and her radicular pain resolved over 6 months. She then had back pain localized over the left SI joint region during her 2 pregnancies 3 and 5 years ago. After these pregnancies she did receive SI joint injections which seem to help back then. About 2 years ago she had a bad fall towards her right hip and severe aggravation of her pain. Her pain starts in the lower back towards the left going to the left buttock region. She denies any tingling numbness of the lower extremities. She is able to walk good amounts of distances but standing and sitting for long peers of time becomes a problem. She has had numerous injections through pain management over the last 2 years without significant help. She also tried physical therapy and chiropractic treatment which also did not give her persistent relief. Ortho Exam General General: Yes no acute distress Neurologic: Yes alert and Yes oriented x3 Spine SPINE TESTING CERVICAL THORACIC LUMBAR Musculoskeletal Strength 0=absent - 5=normal Details: Examination the back shows left paraspinal tenderness to lower lumbar spine. Neurologic motion of lower extremity shows 5 x 5 power normal shows normal sensations in all dermatomes. Passive straight leg raise test is positive on the left. Figure 4 testing does not elicit pain. [place]len test negative. Coding Level of Care Code Off vis,est,level 4 Diagnoses Other intervertebral disc degeneration, lumbar region M51.36 Spondylolisthesis, lumbar region M43.16 Assessment and Plan Assessment and Plan (1) Other intervertebral disc degeneration, lumbar region: Status: Acute (2) Spondylolisthesis, lumbar region: Status: Acute Plan I again reviewed x-rays and MRI done earlier this year. These show L5-S1 disc height loss with disc degeneration with retrolisthesis without dynamic instability. Left worse than right foraminal stenosis noticed. I again explained to her the imaging findings in detail. Patient has developed significant disc degeneration L5-S1. She has significant axial back pain with buttock pain, with severe difficulty for sitting and standing for long peers of time. She has had numerous injections and multiple courses of physical therapy and chiropractic treatment without significant help. Her symptoms are affecting her quality of life and ability to do activities of daily living. She wishes to proceed with surgical intervention. Surgical options were discussed. Although patient is receiving good initial benefit 3 to 5 years ago with SI joint injections, more recently her SI joint injections have not helped her. I explained to her that more likely than not clinically I feel that L5-S1 is the source of her symptoms. I discussed surgical options with the patient. I recommend L5-S1 minimally invasive transforaminal lumbar interbody fusion. All risk benefits and alternatives were discussed in detail. The risks include but are not limited to infection, bleeding, hematoma formation, need for further surgery, injury to nerves and vessels, pseudoarthrosis, hardware failure, adjacent segment degeneration, DVT, pulm embolism, pneumonia, atelectasis, cardiopulmonary event, CSF leak, persistent pain, nerve root injury, foot drop. Patient understands and agrees to proceed with surgery. Consent was signed. Postoperative restrictions were discussed in detail.
[2024-07-18] MEDS: Cefazolin 2 GM in 0.9% Normal Saline (100mL Bag) 100 ML IV ×3 (07:34→22:58)
[2024-07-18 07:39] LABS: Bedside Glucose 71 mg/dL (74-106)
[2024-07-18] MEDS: Ropivacaine 0.5% 30 ML Vial (10:20)
--- NOTE | 2024-07-18 10:20 | RAD_ITS ---
STUDY: X-RAY - LUMBAR SPINE REASON FOR EXAM: Female, 43 years old. Intraoperative digital documentation views of the L4-5 fusion. TECHNIQUE: 6 intraoperative digital documentation view(s) of the lumbar spine were obtained. COMPARISON: Lumbar spine x-rays dated January 20, 2024 FINDINGS: 6 intraoperative digital documentation views show L4-5 fusion. RAD/Lumbar Spine 2 or 3 Views IMPRESSION: Intraoperative digital documentation views as described. Electronically Signed: Nathan Alexander MD at 10:46 EDT ,
--- NOTE | 2024-07-18 11:18 | PCM.OPRPT ---
Report of Operation Date of Procedure: 07/18/24 Description of Surgical Findings:: Preoperative diagnosis: L5-S1 disc degeneration with foraminal stenosis Postoperative diagnosis: Same Name of procedure: L5-S1 transforaminal lumbar interbody fusion (TLIF), minimally invasive left side approach, percutaneous pedicle screw instrumentation. . L5-S1 posterior spinal fusion and interbody fusion ? L5-S1 posterior pedicle screw instrumentation . L5-S1 insertion of cage . Local autograft . Cancellous allograft with DBX Attending Surgeon: Dr. Mac Mcintyre Estimated blood loss: 25 mL Anesthesia: GA Complications: None Implants: DePuy Synthes X-PAC TLIF cage, Viper prime screws Indications: Patient is a 43-year-old lady who has had a history of low back pain that radiates into left lower extremity. X-rays and MRI revealed L5-S1 disc degeneration with bilateral lateral recess and foraminal stenosis. Patient was explained all options of treatment which included continued nonoperative treatment measures like rest physical therapy, epidural steroidal injections. After a prolonged period of of nonoperative treatment, patient elected to undergo surgical decompression & fusion since the symptoms severely affected her quality of life. All risks and benefits associated with the procedure were explained to the patient. The risks include but are not limited to infection, bleeding, injury to nerves and vessels, persistent paresthesia, persistent pain, dural tear, need for further procedures, adjacent segment degeneration, pseudoarthrosis, hardware failure, etc. Procedure: The patient was identified in the preoperative holding suite using unique patient identifiers. Skin was marked, consent was reviewed, and all questions were answered. The patient was then brought back to the operative room. A surgical timeout was performed to make sure correct procedure was being done on the correct patient and all operative room staff were on the same page. General endotracheal anesthesia was then given to the patient. Neuromonitoring leads were applied. The patient was then turned prone onto a Augie table. The back was prepped and draped in usual fashion. IV antibiotic was given as preoperative antibiotic. A final timeout was then again done just before starting the procedure. C-arm AP view was then taken. C-arm was positioned in a way that L5 was centralized and superior endplate of L5 and was parallel to the beam. Spinous process was centered between the pedicles. Midline was marked with skin marker and lateral borders of the pedicles were also marked. Skin marker was also utilized to jeremy transversely across the middle of the pedicles at L5. 2 vertical incisions about 1 inch Extending below this line were taken about 1/2 inch lateral to the pedicle line. The fascia was also incised vertically approximately the same length. Finger dissection was utilized to palpate the superior articular process and facet joint of L5-S1 on the left side. Sequential tubes were docked on the Left L5-S1 facet joint and 70 mm length and 21 mm diameter tubular retractor was then placed and was attached to the arm attached to the OR table. Muscle tissue was removed with pituitaries and hemostasis was achieved with Bovie. inferior articular process of L5 and superior articular process of S1 were exposed with Bovie. Osteotome was utilized to remove a portion of the inferior articular process to expose the articular surface of S1. Some of this resected bone was used as autograft. Mili was then utilized to remove the rest of the inferior articular process and part of the lamina of L5. Superior articular process of S1 was resected with the help of a bur such that the cut was flush with the superior border of S1 pedicle. The traversing nerve root was identified and carefully retracted to expose the disc. Hemostasis was achieved with bipolar cautery. Blunt spreaders were utilized to enter the disc space under C-arm visualization. Pituitary was used to remove disc material. Curettes of various sizes and angulations were utilized to remove as much of the disc material as possible. End plates were curetted to remove all cartilage. Angled curettes were used to remove disc material from the other side underneath the central annulus. MValve technologiesuy X-PAC trials were inserted into position and checked under C- arm lateral view. The disc space was then filled with cancellous bone chips mixed with DBX which were then impacted with the trials. An 10 x 25 mm lordotic tall X-PAC cage filled with bone graft was then inserted into the disc space under x-ray control. Care was taken to make sure the cage was inserted deeper to the posterior longitudinal ligament. The expandable cage was then expanded to up to approximately 11 mm anterior height with approximately 15 degrees lordosis. The cage was found to be well fixed and not easily removable. AP and lateral views showed good positioning of the cage. Majiteker Prime screw tower was docked onto the transverse processes at L5. This was then slowly moved medially to reach the superior articular process of L5. This was then confirmed on C-arm and then a mallet was utilized to drive the trocar and screw into the pedicle going up to the medial wall of the pedicle on AP view. This was performed both sides. C-arm lateral view confirmed both trocars to be inside vertebral body. The screws were advanced. Similar procedure was done at S1 both sides. Cannulated pedicle screws (Depuy Viper) sizes were 7 x 45 mm bilaterally at L5 and 7 x 40 at S1 levels bilaterally. The lateral view showed good positioning of the screws and cage. 40 mm precontoured titanium 5.5 mm lordotic brennon on both sides was then passed through the screw extensions and reduced down to the screws with the help of Depuy Viper Prime instrumentation system. AP and lateral views of the C-arm showed good positioning of the screws and cage. Final tightening with the torque screwdriver was then completed. Adah was utilized to decorticate the right L5-S1 facet joint and bone graft was placed over this. Hemostasis was achieved with the help of Bovie and FloSeal. Closure was done in layers with 0 Vicryls for the fascia, 2-0 Vicryls for the subcutaneous tissue, and Monocryl for the skin. Dressings were applied covered with Tegaderm. The patient was then turned supine onto a hospital bed. The patient was extubated and taken to PACU in stable condition. The patient tolerated the procedure well and no complications occurred. Algonomics X-PAC cage & Viper Prime minimally invasive pedicle screw instrumentation system was utilized in this case. No dural tear was identified in this case. Multimodal neuro monitoring was utilized. All potentials stayed at baseline throughout the procedure. I was present for the entirety of the case and performed the surgery myself. Surgeon: Mac Mcintyre dual rate supervisor: Bertha Conklin Admit VTE Documentation VTE Mechan Device Prophylaxis: SCD's Procedures Musculoskeletal [id number]: Other Procedure See Report
--- NOTE | 2024-07-18 11:56 | NURSING ---
1120 NASAL TRUMPET INSERTED BY ASHISH ALEGRE
--- NOTE | 2024-07-18 11:58 | PCM.POST.ANE ---
Anesthesia: Postop Eval I Current Vital Signs Temperature: 97.1 F Pulse Rate: 104 Blood Pressure: 110/75 Respiratory Rate: 12 Pulse Ox: 96 Oxygen Delivery Method: Simple Mask Oxygen Flow Rate (L/min): 10 Assessment Airway patent: Yes Spontaneous unlabored respirations: Yes Mental status: Asleep (nasal trumpet placed) nausea: No Vomiting: No Anesthesia Complication: No Fluid Hydration Crystalloid volume administer (ml): 1,400 Total IV fluid infused: 1,400 Progress Note Anesthesia document: Postop Eval 1 completed: Yes
[2024-07-18] MEDS: Ketorolac 15 MG/ML Vial IV ×2 (12:26→20:36)
--- NOTE | 2024-07-18 12:35 | POSTOPAN2_ITS ---
Anesthesia Postop Eval I Sum Postop Eval Completion status Anesthesia document: Postop Eval 1 completed: Yes Anesthesia Postop Eval I Summary Anesthesia Postop Eval I Summary: Anesthesia Postop Eval I: Assessment Summary Airway patent Yes 07/18/24 11:59 ORE [email or web address] Spontaneous unlabored Yes 07/18/24 11:59 ORE GRADER.[email or web address] respirations Mental status Asleep - nasal 07/18/24 11:59 ORE GRADER.[email or web address] trumpet placed nausea No 07/18/24 11:59 ORE GRADER.HARRISOBJamilah Vomiting No 07/18/24 11:59 ORE GRADERAZEB Anesthesia Postop Eval I: Fluid Summary Crystalloid volume administer 1,400 07/18/24 11:59 ORE GRADER.KATEY (ml) Colloids volume administered ( ml) Blood Product volume administered (ml) Total IV fluid infused 1,400 07/18/24 11:59 ORE GRADER.KATEY Anesthesia Postop Eval I: Summary Notes Anesthesia Complication No 07/18/24 11:59 ORE GRADERAZEB Anesthesia Complication Comment: Post-operative progress note Anesthesia: Postop Eval II Evaluation Mental status: Awake and Calm Pain Level: 1 nausea: No Vomiting: No Complications Anesthesia Complication: No
--- NOTE | 2024-07-18 12:35 | PCM.POSTANE2 ---
Anesthesia Postop Eval I Sum Postop Eval Completion status Anesthesia document: Postop Eval 1 completed: Yes Anesthesia Postop Eval I Summary Anesthesia Postop Eval I Summary: Anesthesia Postop Eval I: Assessment Summary Airway patent Yes 07/18/24 11:59 MATERNAL CHILD [email or web address].[email or web address] Spontaneous unlabored Yes 07/18/24 11:59 MATERNAL CHILD NURSE.KATEY respirations Mental status Asleep - nasal 07/18/24 11:59 MATERNAL CHILD NURSE.KATEY trumpet placed nausea No 07/18/24 11:59 MATERNAL CHILD NURSE.HARRISOBJamilah Vomiting No 07/18/24 11:59 MATERNAL CHILD NURSEAZEB Anesthesia Postop Eval I: Fluid Summary Crystalloid volume administer 1,400 07/18/24 11:59 MATERNAL CHILD NURSE.KATEY (ml) Colloids volume administered ( ml) Blood Product volume administered (ml) Total IV fluid infused 1,400 07/18/24 11:59 MATERNAL CHILD NURSE.KATEY Anesthesia Postop Eval I: Summary Notes Anesthesia Complication No 07/18/24 11:59 MATERNAL CHILD NURSEAZEB Anesthesia Complication Comment: Post-operative progress note Anesthesia: Postop Eval II Evaluation Mental status: Awake and Calm Pain Level: 1 nausea: No Vomiting: No Complications Anesthesia Complication: No
--- NOTE | 2024-07-18 12:45 | SUR.PHASEI ---
NASAL TRUMPET REMOVED, PT ALERT AND MAINTAINING OWN AIRWAY.
[2024-07-18 13:12] LABS: Bedside Glucose 142 mg/dL (74-106)
[2024-07-18] MEDS: oxyCODONE 5 MG Tablet PO ×2 (14:44→23:07)
[2024-07-18] MEDS: Methocarbamol 500 MG Tablet 1000 MG PO ×2 (15:58→20:36)
[2024-07-18] MEDS: Ondansetron 4 MG/2 ML Vial IV (17:08)
--- NOTE | 2024-07-18 19:20 | CON.PCM.HO_ITS ---
Assessment & Plan Assessment/Plan (1) Herniation of lumbar intervertebral disc with radiculopathy: (2) Spondylolisthesis, lumbar region: PLAN: Plan #Spinal stenosis s/p L5-S1 transforaminal lumbar interbody fusion * today is POD 1. * management as per primary team spinal surgery * PT./OT on board * incentive spirometry * pain management as per primary team * #Depression: on citalopram and bupropion. DVT prophylaxis: as per primary service Thank you for the courtesy of the consult. We will continue to follow with you. HPI Consult Data Date of Consult: 07/18/24 HPI Narrative Reason for Consultation: back pain HPI Narrative: ERIBERTO CORREA, is a 43 F with a PMH as outlined who was admitted to the service of orthopedic surgery with a complaint of low back pain that radiated to the left lower extremity. Imaging done showed L5-S1 disc degeneration with bilateral lateral recess and foraminal stenosis. She had nonoperative treatment which was unsuccessful, so she elected to have surgical decompression and fusion. She had L5-S1 transforaminal lumber interbody fusion on 07/18/2024. Hospitalist service was consulted for medical management. Patient seen and examined. Pain was well controlled. She had no active complaints. Review of systems was otherwise negative. [facility] Medical History COVID Wears hearing aid Loss of hearing Depression Restless legs History of chemical tubal occlusion Wears glasses Wears contact lenses Anxiety Alcohol use Back pain Injury of back Former smoker History of herniated intervertebral disc Stomach ulcer Home Medications ?Medication ?Instructions ?Recorded ?Last Taken ?Type ibuprofen 600 mg tablet 600 mg PO Q6H PRN PRN Pain Score 12/29/20 Unknown Rx 1-3 #30 tabs cholecalciferol (vitamin D3) 25 25 mcg PO DAILY 04/24/21 07/17/24 History mcg (1,000 unit) chewable tablet (Vitamin D3) citalopram 40 mg tablet 40 mg PO DAILY 04/24/21 07/17/24 History bupropion HCl 150 mg 24 hr tablet, 150 mg PO QDAY 05/05/24 07/17/24 History extended release tizanidine 2 mg tablet 2 mg PO QHS PRN muscle spasticity 05/05/24 07/12/24 History Allergy/AdvReac Type Severity Reaction Status Date / Time morphine AdvReac Itching Verified 07/18/24 06:05 Family History Other Alcoholism CVA (cerebral vascular accident) Heart disease Osteoporosis Thyroid disorder Surgical History History of hysteroscopy History of tonsillectomy and adenoidectomy Hx of laparoscopy History of foot surgery History of delivery Social History Smoking Status: Former smoker alcohol intake: current alcohol intake frequency: holidays/special occasions only substance use type: does not use what type of physical activity do you participate in: yoga frequency: 3-4 times per week ROS Constitutional Constitutional: Denies anorexia, chills, fatigue, fever(s), malaise or weakness Eyes Eyes: Denies change in vision ENT HEENT: Denies dysphagia or headache(s) Cardiovascular Cardiovascular: Denies chest pain, dyspnea on exertion, edema, lightheadedness, orthopnea, palpitations, paroxysmal nocturnal dyspnea, rapid heart rate or syncope Respiratory/Chest Respiratory/Chest: Denies cough, dyspnea, shortness of breath at rest or shortness of breath with exertion Gastrointestinal Gastrointestinal: Denies abdominal pain, constipation, diarrhea, nausea or vomiting Genitourinary Genitourinary: Denies burning urination or dysuria Musculoskeletal Musculoskeletal: Reports back pain; Denies arthralgias or joint stiffness Neurologic Neurologic: Denies confusion, disequilibrium, dizziness, focal weakness, headache(s), numbness, seizure-like activity, seizures or syncope Psychiatric Psychiatric: Denies anxiety Physical Exam Const alert, oriented x3 and no apparent distress General Appearance: cooperative HEENT normocephalic, head/scalp atraumatic, moist oral mucous membranes and oropharynx normal Mouth: oral and palatal mucosa normal Eyes PERRL, EOMs intact bilaterally and conjunctivae normal Neck no lymphadenopathy and supple Resp normal respiratory effort, no use of accessory muscles and clear to auscultation bilaterally Cardio regular rate, regular rhythm, S1 normal heart sound, S2 normal heart sound and no murmurs GI normal to inspection, nondistended, normoactive bowel sounds, soft to palpation, non-tender and non-distended Extremity normal to inspection and no clubbing, cyanosis or edema Skin Skin Narrative: intact dressing over lower back Neuro Sensorium / Orientation: awake Motor Exam: strength 5/5 throughout Psych affect normal Lab / Micro Data 07/07/24 09:23 07/07/24 09:23 Labs: Laboratory Results - last 24 hr 07/18/24 06:10: POC Glucose 71 L 07/18/24 12:53: POC Glucose 142 H Imaging Radiology Impression Lumbar Spine X-Ray 07/18/24 10:20 IMPRESSION: Intraoperative digital documentation views as described. Electronically Signed: Nathan Alexander MD at 10:46 EDT , Charges/Coding Visit Charges Inpatient E&M: 29173 Subs Hosp L2
[2024-07-18] MEDS: Senna/Docusate Sodium 1 Tablet 2 TABLET PO (20:36)
[2024-07-19 02:51] VITALS: BP 99/60; PULSE 99; RESP 18; TEMP 36.7; O2SAT 94
[2024-07-19] MEDS: Ketorolac 15 MG/ML Vial IV ×3 (02:57→14:58)
[2024-07-19 05:51] LABS: Hematocrit 31.6 % (37-47); Hemoglobin 10.1 g/dL (12.0-15.0); Mean Corpuscular Hgb 28.1 pg (27.0-32.0); Mean Platelet Vol. 10.9 fl (6.2-12.0); Platelet Count 260 K/mm3 (150-450); RBC Distribution Width CV 13.7 % (11.6-14.6); RBC Distribution Width SD 44.2 fl (35.1-43.9); Red Blood Count 3.59 M/mm3 (4.2-5.4); White Blood Count 10.5 K/mm3 (4.4-11.0)
[2024-07-19 06:26] VITALS: BP 114/73; PULSE 103; RESP 18; TEMP 36.5; O2SAT 95
[2024-07-19] MEDS: oxyCODONE 5 MG Tablet PO (06:35)
[2024-07-19 06:57] LABS: Anion Gap 4 (5-15); BUN 8 mg/dL (7-18); BUN/Creat Ratio 9.6 RATIO (10-20); Calcium,Total 8.1 mg/dL (8.5-10.1); Chloride 107 mmol/L (98-107); Creatinine, Serum 0.83 mg/dL (0.55-1.02); EST Glomerular Filtration Rate 80 mL/min (>60); Est Glom Filt Rate - Afr Amer 97 mL/min (>60); Estimated Creatinine Clearance 85.92 ml/min; Glucose 119 mg/dL (74-106); Potassium 3.8 mmol/L (3.5-5.1); Sodium Level 138 mmol/L (136-145)
--- NOTE | 2024-07-19 07:26 | RAD_ITS ---
STUDY: X-RAY - LUMBAR SPINE REASON FOR EXAM: Female, 43 years old. Status post lumbar fusion. Follow-up. TECHNIQUE: 2 view(s) of the lumbar spine were obtained. COMPARISON: Postoperative evaluation July 18, 2024 and prior lumbar spine x-rays January 20, 2024 FINDINGS: Normal lumbar lordosis. No scoliosis. Normal vertebral alignment. Stable mild diffuse lower thoracic and lumbosacral facet sclerosis. Posterior fusion at L5-S1 with intervertebral disc prosthesis unchanged from the immediate postsurgical images. No complications identified. Phleboliths. RAD/Lumbar Spine 2 or 3 Views IMPRESSION: Stable L5-S1 fusion without complications Electronically Signed: Nathan Alexander MD at 11:40 EDT ,
[2024-07-19] MEDS: Acetaminophen 500 MG Tablet 1000 MG PO (09:08)
[2024-07-19] MEDS: Senna/Docusate Sodium 1 Tablet 2 TABLET PO (09:08)
[2024-07-19] MEDS: Cholecalciferol (VIT D3) 25 MCG TABLET (1,000 UNITS) PO (09:09)
[2024-07-19] MEDS: buPROPion (XL) 150 MG TABLET.XL PO (09:09)
[2024-07-19] MEDS: Citalopram 40 MG TABLET PO (09:09)
[2024-07-19] MEDS: Ensure Surgery 237 ML LIQUID PO (09:26)
[2024-07-19] MEDS: 0.9% Saline Lock 10 ML Syringe IV (09:26)
[2024-07-19 09:45] VITALS: BP 95/71; PULSE 74; RESP 16; TEMP 36.8; O2SAT 97
[2024-07-19 09:46] VITALS: PULSE 74; O2SAT 97
[2024-07-19 09:50] VITALS: BP 95/71; PULSE 74; RESP 16; TEMP 36.8; O2SAT 97
[2024-07-19] MEDS: Methocarbamol 500 MG Tablet 1000 MG PO (11:47)
--- NOTE | 2024-07-19 12:45 | CASEMGMT ---
Addendum entered by Yvette Perez 07/19/24 13:11: Pt mother plans to stay with pt to assist as needed. Original Note: LANIE CUMMINGS Assessment: Face to Face with pt for initial transition planning/care coordination assessment. RN CM introduced self and role at [facility], pt voices understanding and consents to assessment. Pt is A&O x4 and answers all questions appropriately at this time. Pt sitting up in bed in no distress with and at bedside. Pt agreeable to assessment with family present. Ortho surgeon just left pt room. Care providers, pharmacy, and demographics verified/updated. Admitting Dx: lumbar fusion Strata Score: 1 PCP:Dolores Mann NP Specialists:nandini Mcintyre; Fernando, TRANSPLANT CASE MANAGER [facility]acy[facility] Insurance: [place] Prescription Benefit: yes LNOK: Jorge Vela, Living Arrangements: Pt lives with and 3 children in a two story home with 3 steps to enter. Pt reports prior to surgery she was I in ADL/IADLs. Pt denies concerns at home. Transportation: Pt drives self and denies concerns with transportation. Pt will transport pt to medical appts until she can drive again. DME:Denies HHC/SNF: Denies Pt states no concerns with going home at time of dc. Pt states no further concerns/needs. CM to follow. Advised pt to ask CM if any further question/concerns/needs arise, voices understanding. Pt Goal: Home Plan: Home Teresa DELA CRZU CM
[2024-07-19 15:06] VITALS: BP 118/67; PULSE 100; RESP 18; TEMP 36.7; O2SAT 100
--- NOTE | 2024-07-19 15:46 | PHA.DC.MR.R ---
Pharmacy [place] Med Reconciliation Pharmacy Service has performed discharge medication reconciliation for this patient. Medication education papers prepared, patient discharged before I was able to prevocational/rehabilitation counselor. Medications reviewed. The patient's discharge medication list was reviewed for discrepancies and discrepancies were resolved. Medications at Discharge Home Medications cholecalciferol (vitamin D3) 25 mcg (1,000 unit) chewable tablet (Vitamin D3) 25 mcg PO DAILY 04/24/21 citalopram 40 mg tablet 40 mg PO DAILY 04/24/21 bupropion HCl 150 mg 24 hr tablet, extended release 150 mg PO QDAY 05/05/24 acetaminophen 500 mg tablet 500 mg PO Q6H #30 tabs 07/19/24 meloxicam 15 mg tablet 15 mg PO DAILY #30 tabs 07/19/24 methocarbamol 500 mg tablet 750 mg (1.5 x 500 mg) PO TID PRN spasms/pain #30 tabs 07/19/24 oxycodone 5 mg tablet 2.5 - 5 mg (0.5 - 1 x 5 mg) PO Q6H PRN pain 7 days #28 tabs 07/19/24 sennosides 8.6 mg-docusate sodium 50 mg tablet (Stimulant Laxative Plus) 2 tab PO BID PRN constipation #30 tabs 07/19/24
== END 2024-07-19 15:32 | disposition home or self-care (01) ==
LOC: MS3 07-19 06:57 → SDC 07-19 09:02 → MS3 07-19 09:02
PROVIDERS: Anesthesiology; Student in an Organized Health Care Education/Training Program; Admitting Provider Orthopaedic Surgery Orthopaedic Surgery of the Spine; PCP Nurse Practitioner Family; Referring Provider Orthopaedic Surgery Orthopaedic Surgery of the Spine; Visit Provider Orthopaedic Surgery Orthopaedic Surgery of the Spine
PROC: (CPT 22633; principal; 2024-07-18 07:00)
DX: M51.17 Intervertebral disc disorders with radiculopathy, lumbosacral region (principal); M43.16 Spondylolisthesis, lumbar region; M48.07 Spinal stenosis, lumbosacral region; Z87.891 Personal history of nicotine dependence; Z79.899 Other long term (current) drug therapy; F32.A Depression, unspecified; F41.9 Anxiety disorder, unspecified; M51.16 Intervertebral disc disorders with radiculopathy, lumbar region
CPT/HCPCS: 22633; 22840; 22853; 20930; 20936; 00670; 36415; 72100; 76000; 80048; 82962; 83735; 85025; 85027; 86703; 86706; 86708; 86803; 86850; 86900; 86901; 87081; 93005; 94668; 96365; 96366; 96375; 96376; 97162; 97166; 99221; C1713; J7120; A4216; G0378; J2405; J3475

== ENCOUNTER 2024-11-07 08:00 | Outpatient (RCR) | payer BC, SELFPAY ==
--- NOTE | 2024-08-11 16:29 | HP.PTEVAL_ITS ---
Patient's Visit Information Visit Information Visit Information: ERIBERTO CORREA is a 43 year old F referred to Physical Therapy by DEE Hogan with a diagnosis of . Date of Evaluation: 08/11/24 Physical Therapist: George Mccarthy PT, Cert MDT, OCS Visit Plan Frequency: 2x /Week Duration: 4 Weeks Plan: S/P LUMBAR FUSION 07/04/24 PT INTERVENTIONS DLS ,POSTURAL EX'S LE FLEXABILITY ,FUNCTIONAL STRENGTHENING AND ACTIVITY MODIFICATION Subjective Subjective: This 43 y/o male presents to physical therapy with s/p lumbar fusion on 07/18/24 at [facility] by DR Mcintyre consisted L5-S1 transforaminal lumbar interbody fusion (TLIF), minimally invasive left side approach, percutaneous pedicle screw instrumentation. L5-S1 posterior spinal fusion and interbody fusion L5-S1 posterior pedicle screw instrumentation , L5-S1 insertion of cage, Local autograft. Patient was d/c next day. No BLT and lifting restriction gallon milk. Patient seen PA last week and x-rays looked good and RTD in 3 weeks. Medication stopped oxycodone ,but cont with muscle relaxer. Pain affects sleeping.Aggravating factors in morning . Patient doing okay standing/walking. Coughing/sneezing guarded. Bowel/bladder- . Patient had mild tingling. Prior to PT tried water but unable to emmanuel ,pain management ,massage and chiropractor. Patient condition affects QOL and function/ Patient return to prior level of function and RTW Aug 29. SOCAIL: VOCATION: [employer] Objective Objective: POSTURE: mild forward posture GAIT: reciprocal pattern SKIN: incision well approximate FLEXABILITY: hamstrings min tight LUMBAR ROM: flexion mod loss ,extension mod loss ,side min/mod loss MMT: quads/hams 4/5 ,hip flexion 4-/5 ,ankle 5/5 Special Tests L/S Slump test left side: Negative L/S Slump test right side: Negative L/S Left Straight Leg Raise: Negative L/S Right Straight Leg Raise: Negative Balance/Special Test Scores Oswestry Low Back Score: 24 Goals Goal 1:: Patient to be I with HEP for lumbar Goal Time Frame: 4-6 Weeks Goal 2:: Patient to improve lumbar ROM for function of recovery for ADLS and housework task Goal Time Frame: 4-6 Weeks Goal 3:: Patient to improve back oswestry score by 5 points to improve QOL and function Goal Time Frame: 4-6 Weeks Goal 4:: Patient to demonstrate 75% improvement with less pain and improved func tion Goal Time Frame: 4-6 Weeks Goal 5:: Patient to RTW and and housework tasks with no limitations Goal Time Frame: 4-6 Weeks Rehabilitation Potential Physical Therapy Diagnosis: Patient underwent s/p lumbar fusion with weakness ,impaired function /endurance ,decrease lumbar ROM thus benefit from skilled PT Rehabilitation Potential: Good Anticipated Interventions Patient/Client Instruction: Educate patient on: Condition and Plan of Care For the Purpose of:: To decrease pain, To increase ROM, To improve ability to perform ADL's, To increase tolerance to activity/condition/position, To improve ability of physical actions for home/community/work/leisure, To improve health of tissue, To decrease soft tissue restriction, To increase flexibility/ROM, To improve balance and To improve tolerance to ADL's Therapeutic Exercise to Include: Strength training, Body mechanics, Postural training, Flexibilty training and Dynamic Lumbar Stabilization For the Purpose of:: To decrease pain, To increase ROM, To improve muscle performance and motor function, To increase tolerance to activity/condition/position, To improve ability of physical actions for home/community/work/leisure, To improve health of tissue, To decrease soft tissue restriction, To increase flexibility/ROM and To reduce risk of recurrence Text: Thank you for the opportunity to evaluate your patient. For Medicare and Medicare HMO plans, please review the plan of care and approve it. It will need to be FAXED BACK to us at [phone] for Medicare purposes. For Medicare only, by signing this I certify the plan of care. Please let me know if there are questions or concerns regarding this plan of care. Physician Signature: Date:
--- NOTE | 2024-08-14 12:01 | HP.PTEVAL_ITS ---
Patient's Visit Information Visit Information Visit Information: ERIBERTO CORREA is a 43 year old F referred to Physical Therapy by DEE Hogan with a diagnosis of ARTHRODESIS ,LUMBAR. Date of Evaluation: 08/11/24 Physical Therapist: George Mccarthy, PT, Cert MDT, OCS Visit Plan Frequency: 2x /Week Duration: 4 Weeks Plan: S/P LUMBAR FUSION 07/04/24 PT INTERVENTIONS DLS ,POSTURAL EX'S LE FLEXABILITY ,FUNCTIONAL STRENGTHENING AND ACTIVITY MODIFICATION Subjective Subjective: This 43 y/o male presents to physical therapy with s/p lumbar fusion on 07/18/24 at [facility] by DR Mcintyre consisted L5-S1 transforaminal lumbar interbody fusion (TLIF), minimally invasive left side approach, percutaneous pedicle screw instrumentation. L5-S1 posterior spinal fusion and interbody fusion L5-S1 posterior pedicle screw instrumentation , L5-S1 insertion of cage, Local autograft. Patient was d/c next day. No BLT and lifting restriction gallon milk. Patient seen PA last week and x-rays looked good and RTD in 3 weeks. Medication stopped oxycodone ,but cont with muscle relaxer. Pain affects sleeping.Aggravating factors in morning . Patient doing okay standing/walking. Coughing/sneezing guarded. Bowel/bladder- . Patient had mild tingling. Prior to PT tried water but unable to emmanuel ,pain management ,massage and chiropractor. Patient condition affects QOL and function/ Patient return to prior level of function and RTW Aug 29. SOCAIL: VOCATION: [employer] Objective Objective: POSTURE: mild forward posture GAIT: reciprocal pattern SKIN: incision well approximate FLEXABILITY: hamstrings min tight LUMBAR ROM: flexion mod loss ,extension mod loss ,side min/mod loss MMT: quads/hams 4/5 ,hip flexion 4-/5 ,ankle 5/5 Special Tests L/S Slump test left side: Negative L/S Slump test right side: Negative L/S Left Straight Leg Raise: Negative L/S Right Straight Leg Raise: Negative Balance/Special Test Scores Oswestry Low Back Score: 24 Goals Goal 1:: Patient to be I with HEP for lumbar Goal Time Frame: 4-6 Weeks Goal 2:: Patient to improve lumbar ROM for function of recovery for ADLS and housework task Goal Time Frame: 4-6 Weeks Goal 3:: Patient to improve back oswestry score by 5 points to improve QOL and function Goal Time Frame: 4-6 Weeks Goal 4:: Patient to demonstrate 75% improvement with less pain and improved function Goal Time Frame: 4-6 Weeks Goal 5:: Patient to RTW and and housework tasks with no limitations Goal Time Frame: 4-6 Weeks Rehabilitation Potential Physical Therapy Diagnosis: Patient underwent s/p lumbar fusion with weakness ,impaired function /endurance ,decrease lumbar ROM thus benefit from skilled PT Rehabilitation Potential: Good Anticipated Interventions Patient/Client Instruction: Educate patient on: Condition and Plan of Care For the Purpose of:: To decrease pain, To increase ROM, To improve ability to perform ADL's, To increase tolerance to activity/condition/position, To improve ability of physical actions for home/community/work/leisure, To improve health of tissue, To decrease soft tissue restriction, To increase flexibility/ROM, To improve balance and To improve tolerance to ADL's Therapeutic Exercise to Include: Strength training, Body mechanics, Postural training, Flexibilty training and Dynamic Lumbar Stabilization For the Purpose of:: To decrease pain, To increase ROM, To improve muscle performance and motor function, To increase tolerance to activity/condition/position, To improve ability of physical actions for home/community/work/leisure, To improve health of tissue, To decrease soft tissue restriction, To increase flexibility/ROM and To reduce risk of recurrence Text: Thank you for the opportunity to evaluate your patient. For Medicare and Medicare HMO plans, please review the plan of care and approve it. It will need to be FAXED BACK to us at [phone] for Medicare purposes. For Medicare only, by signing this I certify the plan of care. Please let me know if there are questions or concerns regarding this plan of care. Physician Signature: Date:
--- NOTE | 2024-11-07 08:54 | HP.PTDCSUM ---
Discharge Summary D/C summary: It has been my pleasure to treat ERIBERTO CORREA referred by DEE Hogan, with the diagnosis of ARTHRODESIS ,LUMBAR for a total of 23 visit(s). Discharge Date: 11/07/24 Please see the following information for a summary of their discharge status. Subjective Subjective: Patient caused soreness in back from lifting Pain L LE: Pain Intensity (Out of 10): 0 LB: Pain Intensity (Out of 10): 3 Overall Improvement % Improvement: 90 Objective Objective/Function: POSTURE: mild forward posture GAIT: reciprocal pattern SKIN: incision well approximate FLEXABILITY: hamstrings min tight LUMBAR ROM: flexion MIN loss ,extension min loss ,side min loss MMT: quads/hams 4/5 ,hip flexion 4-/5 ,ankle 5/5 Goals Goal 1:: Patient to be I with HEP for lumbar Goal Progress: Goal Met Goal 2:: Patient to improve lumbar ROM for function of recovery for ADLS and housework task Goal Progress: Goal Met Goal 3:: Patient to improve back oswestry score by 5 points to improve QOL and function Goal Progress: Goal Met Goal 4:: Patient to demonstrate 75% improvement with less pain and improved function Goal Progress: Goal Met Goal 5:: Patient to RTW and and housework tasks with no limitations Goal Progress: Goal Met Plan Plan: D/C TO HEP D/C Information Discharge Comments: HEP d/c sentence: If there are questions or concerns regarding this patient's physical therapy, please feel free to call me at [phone]. Thank you for the referral of this patient. Sincerely, George Mccarthy, PT, Cert MDT, OCS Balance/Gait/Functional tests Balance/Special Test Scores Oswestry Low Back Score: 3 Improvement % Improvement: 90
== END 2024-11-07 19:00 | disposition home or self-care (01) ==
LOC: PT 08:00
PROVIDERS: PCP Nurse Practitioner Family; Visit Provider Student in an Organized Health Care Education/Training Program
DX: Z98.1 Arthrodesis status (principal)
CPT/HCPCS: 97110; 97162; 97530

== ENCOUNTER 2025-03-15 22:57 | Emergency (ER) | payer BC, SELFPAY ==
[2025-03-15 22:58] VITALS: BP 122/84; PULSE 82; RESP 18; TEMP 36.6; O2SAT 100
[2025-03-15 23:23] VITALS: BMI 26.4
--- NOTE | 2025-03-15 23:36 | CT_ITS ---
PROCEDURE: ABDOMEN/PELVIS W IV CONT ONLY 03/16/2025 REASON FOR EXAM: ABDOMINAL PAIN TECHNIQUE: Abdomen and pelvis CT with intravenous contrast. Coronal and Sagittal reconstruction series were provided. PATIENT PREPARATION: Per protocol ORAL CONTRAST TYPE: None. CONTRAST: 99 cc Isovue 370 IV One or more dose reduction techniques were used (e.g., Automated exposure control, adjustment of the mA and/or kV according to patient size, use of iterative reconstruction technique. RADIATION DOSE SUMMARY: CTDlvol: 14.61 mGy DLP: 771.22 mGycm COMPARISON: None available FINDINGS: The lung bases are clear. The liver, gallbladder, adrenal glands, kidneys, pancreas and spleen appear within limits. Abdominal aorta appears within limits. No adenopathy. No bowel dilation or free air. The appendix is not identified, no secondary signs. Moderate proximal colonic stool without wall thickening or pericolonic inflammatory change. The ovaries/adnexa, uterus and bladder appear within limits. Tampon noted. No free fluid seen. Status post L5-S1 posterior fusion with intervertebral disc spacer. CT/Abdomen/Pelvis W IV Cont ONLY IMPRESSION: No evidence of acute process. Reading Location: [id number]
--- NOTE | 2025-03-15 23:37 | ED.VIS.GI ---
HPI HPI - GI History of Present Illness Chief Complaint: Abd Pain Detail of Chief Complaint: Abdominal pain Informant: patient Narrative Narrative: Patient presents to the emergency department with complaint of abdominal pain that started around 9 PM tonight. Patient thought that she was get a little anxious and she tried to lay down to go to sleep and then started having sharp stabbing pains in the upper abdomen. She describes some mild nausea but no vomiting. She has not had pain like this before. She states that she had history of a peptic ulcer in her 20s but no issues since that time. She still has her gallbladder. She has history of endometriosis and has had her appendix removed. She denies fevers. She ate tacos for dinner and has had tacos throughout the week and has not had any issues. Pain does not radiate to her back. She rates her pain a 9 out of 10 currently. PFSH PFS Medical History COVID Wears hearing aid Loss of hearing Depression Restless legs History of chemical tubal occlusion Wears glasses Wears contact lenses Anxiety Alcohol use Back pain Injury of back Former smoker History of herniated intervertebral disc Stomach ulcer Home Medications ?Medication ?Instructions ?Recorded ?Last Taken ?Type cholecalciferol (vitamin D3) 25 25 mcg PO DAILY 04/24/21 07/17/24 History mcg (1,000 unit) chewable tablet (Vitamin D3) citalopram 40 mg tablet 40 mg PO DAILY 04/24/21 07/17/24 History bupropion HCl 150 mg 24 hr tablet, 150 mg PO QDAY 05/05/24 07/17/24 History extended release acetaminophen 500 mg tablet 500 mg PO Q6H #30 tabs 07/19/24 Unknown Rx drospirenone (contraceptive) 4 mg 1 tab PO QDAY 10/10/24 Unknown History (28) tablet (Slynd) Allergy/AdvReac Type Severity Reaction Status Date / Time morphine AdvReac Itching Verified 03/15/25 22:58 Family History Other Alcoholism CVA (cerebral vascular accident) Heart disease Osteoporosis Thyroid disorder Surgical History History of hysteroscopy History of tonsillectomy and adenoidectomy Hx of laparoscopy History of foot surgery History of delivery Social History Smoking Status: Former smoker alcohol intake: current alcohol intake frequency: holidays/special occasions only substance use type: does not use what type of physical activity do you participate in: yoga frequency: 3-4 times per week ROS ROS ED Review of Systems ROS Unobtainable: other Constitutional Constitutional ED: Reports lethargy; Denies chills, fever(s), sweats or weight loss Eyes Eyes: Denies blurry vision, change in vision or diplopia ENT ENT ED: Denies rhinorrhea or sore throat Cardiovascular Cardiovascular: Denies chest pain, orthopnea or racing heartbeat Respiratory/Chest Respiratory/Chest: Denies cough, dyspnea, dyspnea on exertion, orthopnea or sputum Gastrointestinal Gastrointestinal: Reports abdominal pain and nausea; Denies diarrhea or vomiting Genitourinary Genitourinary ED: Denies dysuria, hematuria or urinary frequency Musculoskeletal Musculoskeletal: Denies arthralgias, back pain, myalgias or neck pain Integumentary Denies abscess, Abrasions or rash Neurologic Neurologic: Denies headache(s) or weakness Psychiatric Psychiatric: Denies anxiety, depression or suicidal thoughts Endocrine Endocrinology: Denies polydipsia, polyphagia or polyuria Hematologic/Lymphatic Hematologic/Lymphatic: Denies easy bleeding, easy bruising or lymphadenopathy Allergic/Immunologic Allergic/Immunologic ED: Denies mouth swelling, tongue swelling or urticaria EXAM Physical Exam Const Vital Signs: 03/15/25 22:58 03/15/25 23:58 Temperature 97.8 F Temperature Source Temporal Pulse Rate 82 72 Respiratory Rate 18 16 Blood Pressure 122/84 H 117/70 Blood Pressure Mean 96 85 Pulse Ox 100 98 Oxygen Delivery Method Room Air Room Air Positive well nourished and well developed General Appearance ED: well developed and NAD HEENT Reports TM's clear and moist mucous membranes normocephalic and atraumatic; Negative for trauma or tenderness Tympanic Membrane ED: Yes TM's clear Eyes PERRL and EOMs intact bilaterally General Eye ED: Negative for pale conjunctiva or scleral icterus Neck no lymphadenopathy, supple and no JVD General: Negative for tenderness Chest Wall inspection of chest normal and palpation of chest normal Chest: Negative for tenderness Resp normal respiratory effort and clear to auscultation bilaterally Effort and Inspection: Negative for respiratory distress or pain with movement Auscultation: Negative for rhonchi, wheezes or diminished lung sounds Cardio regular rate, regular rhythm, S1 normal heart sound, S2 normal heart sound and no murmurs Peripheral Pulses: pulses 2+ throughout GI normal to inspection, nondistended, normoactive bowel sounds, soft to palpation, non-distended and no masses GI Narrative: Tenderness palpation over the epigastric region and right upper quadrant with guarding. She has a positive Ennis sign. No tenderness over the lower abdomen. Back/Spine no CVA tenderness and no thoracic nor lumbar tenderness Extremity normal to inspection General Extremety ED: Negative for edema General Extremity: Negative for edema Neuro oriented x3, CN's II-XII intact bilaterally, no sensory deficits noted and gait normal Sensorium / Orientation: awake, alert, oriented to person, oriented to place and oriented to time Motor Exam: strength 5/5 throughout and strength abnormal Psych mental status grossly normal Skin no rashes or lesions noted and no wounds MDM MDM MDM Narrative Medical decision making narrative: Patient presents with abdominal pain that started 9 PM this evening. Tenderness in the upper abdomen. In the differential would be pancreatitis versus peptic ulcer disease versus gallbladder disease or other acute intra-abdominal process such as bowel obstruction or bowel perforation. IV line established. CBC with differential obtained showed a normal white count of 8.7 with hemoglobin 12.2 and platelet count of 348. Chemistries unremarkable. LFTs were normal other than a minimally elevated alkaline phosphatase of 106. Lipase was normal at 60. Urinalysis was normal. Lactate normal 1.5. CT scan of the abdomen pelvis showed no acute abdominal process and this was performed with IV contrast. While in the department she received a milligram of Dilaudid IV and 4 mg of Zofran. She felt markedly improved after treatment. At this point etiology of her abdominal pain unclear. Discussed possibility of peptic ulcer disease or gastritis. Discussed possibility of biliary dysfunction. She does not want thing for pain for home. She will buy an and acid [id number] such as omeprazole for Pepcid. She is advised to follow-up with her primary care physician within next 3 to 5 days. She is to return if worsening pain, fever, vomiting, or condition worsening way. Refer symptoms persist she may need further evaluation such as possibly EGD or HIDA scan to evaluate further. Patient comfortable with plan. Abdominal exam prior to discharge shows mild discomfort in the upper abdomen and right upper quadrant. There is no rebound, rigidity, or peritoneal signs. Lab Data Attestation: I reviewed the patient's lab results. Labs: Laboratory Results - last 24 hr 03/15/25 03/15/25 03/15/25 22:44 23:37 23:50 WBC 8.7 RBC 4.14 L Hgb 12.2 Hct 36.2 L MCV 87.4 MCH 29.5 MCHC 33.7 RDW Std Deviation 38.6 RDW Coeff of Magui 12.0 Plt Count 348 MPV 10.4 Immature Gran % (Auto) 0.300 Neut % (Auto) 46.7 L Lymph % (Auto) 40.0 Laurens % (Auto) 10.5 H Eos % (Auto) 1.8 Baso % (Auto) 0.7 Absolute Neuts (auto) 4.0 Absolute Lymphs (auto) 3.46 Nucleated RBC % 0 Sodium 137 Potassium 3.5 Chloride 105 Carbon Dioxide 18.7 L Anion Gap 14 BUN 19 Creatinine 1.03 Estim Creat Clear Calc 68.27 Est GFR (MDRD) Non-Af 70 BUN/Creatinine Ratio 18.6 Glucose 92 Lactic Acid 1.5 Calcium 9.3 Total Bilirubin 0.15 AST 20 ALT 9 Alkaline Phosphatase 106 H Total Protein 7.5 Albumin 4.3 Globulin 3.2 Albumin/Globulin Ratio 1.3 Lipase 60 Urine Color Yellow Urine Clarity Clear Urine pH 8.0 Ur Specific [place] 1.010 Urine Protein 15 H Urine Glucose (UA) Normal Urine Ketones Negative Urine Occult Blood Negative Urine Nitrite Negative Urine Bilirubin Negative Urine Urobilinogen Normal Ur Leukocyte Esterase 25 H Urine RBC 0 SEEN Urine WBC 0 SEEN Ur Squamous Epith Cells 0 SEEN Urine Bacteria 0 SEEN Urine Mucus 0 SEEN Radiography Diagnostic Testing: Clinical Impression(s) from Imaging Studies Abdomen/Pelvis CT 03/15/25 23:36 IMPRESSION: No evidence of acute process. Reading Location: [facility] Discharge Plan Triage Chief Complaint: Abd Pain ED Provider: Austin Rhodes Dx/Rx/DC Orders Clinical Impression: Abdominal pain Instructions: ED Abdominal Pain Unkn Cause Fem Prescriptions: No Action bupropion HCl 150 mg tablet extended release 24 hr 150 mg PO QDAY Slynd 4 mg (28) tablet 1 tab PO QDAY citalopram 40 mg tablet 40 mg PO DAILY Patient Comments: take 1 tablet by mouth once daily cholecalciferol (vitamin D3) [Vitamin D3] 25 mcg (1,000 unit) Tablet,Chewable 25 mcg PO DAILY acetaminophen 500 mg Tablet 500 mg PO Q6H Qty: 30 0RF Primary Care Provider: Dolores Mann NP Referrals: Dolores Mann NP, [employer] [Primary Care Provider] - 3-5 Days Print Language: Swedish Disposition Disposition: Home, Self Care
[2025-03-15 23:47] LABS: Bacteria 0 SEEN /hpf (None Seen); Mucous, Urine 0 SEEN /hpf (<or=2+); Red Blood Cells-Urine 0 SEEN /hpf (0-5); Squamous Epithelial Cells - UA 0 SEEN /hpf (5-10); White Blood Cells 0 SEEN /hpf (0-5)
[2025-03-15 23:50] LABS: Color, Urine Yellow (Yellow); Glucose, Dipstick Normal (Normal); Ketone-Dipstick Negative (Negative); Leukocyte Esterase-Dipstick 25 /ul (Negative); Nitrite-Dipstick Negative (Negative); Occult Blood-Urine Negative /ul (Negative); Protein-Dipstick 15 mg/dl (Negative); Urine Bilirubin Dipstick Negative (Negative); Urine Clarity Clear (Clear); Urine Urobilinogen Normal (Normal)
[2025-03-15] MEDS: HYDROmorphone 1 MG/ML Syringe IV (23:53)
[2025-03-15] MEDS: 0.9% Normal Saline (1000mL) 1,000 ML 125 ML IV (23:53)
[2025-03-15] MEDS: Ondansetron 4 MG/2 ML Vial IV (23:53)
[2025-03-15 23:58] VITALS: BP 117/70; PULSE 72; RESP 16; O2SAT 98
[2025-03-16 00:08] LABS: Absolute Lymphocyte Count 3.46 X10^3/uL (0.83-4.51); Basophil# 0.06 X10^3/uL; Basophil% 0.7 % (0-1); Eosinophil# 0.16 X10^3/uL; Eosinophils% 1.8 % (0-5); Hematocrit 36.2 % (37-47); Hemoglobin 12.2 g/dL (12.0-15.0); Lymphocyte # 3.46 X10^3/ul (0.83-4.51); Mean Corp Hgb Conc 33.7 g/dL (32-36); Mean Corpuscular Hgb 29.5 pg (27.0-32.0); Mean Corpuscular Volume 87.4 fL (81-99); Mean Platelet Vol. 10.4 fl (6.2-12.0); Monocyte# 0.91 X10^3/uL; Monocyte% 10.5 % (0-10); NRBC Flagged by Analyzer 0 % (0-5); Neutrophil # 4.04 X10^3/uL (2.7-7.7); Neutrophil % 46.7 % (47-70); Platelet Count 348 K/mm3 (150-450); RBC Distribution Width SD 38.6 fl (35.1-43.9); Red Blood Count 4.14 M/mm3 (4.2-5.4); White Blood Count 8.7 K/mm3 (4.4-11.0)
[2025-03-16 00:11] LABS: Lactic Acid 1.5 mmol/L (0.0-2.0)
[2025-03-16 00:26] LABS: ALB/GLOB Ratio 1.3 RATIO (0.9-2.4); AST(SGOT) 20 U/L (<=31); Alanine Aminotransfer ALT/SGPT 9 U/L (<=34); Albumin, Serum 4.3 g/dL (3.5-5.0); Alkaline Phosphatase 106 U/L (35-104); Anion Gap 14 (5-15); BUN 19 mg/dL (4-19); BUN/Creat Ratio 18.6 RATIO (10-20); Calcium,Total 9.3 mg/dL (7.6-11.0); Carbon Dioxide 18.7 mmol/L (21.0-32.0); Chloride 105 mmol/L (98-108); Creatinine, Serum 1.03 mg/dL (0.70-1.20); EST Glomerular Filtration Rate 70 (>60); Estimated Creatinine Clearance 68.27 ml/min (50-250); Globulin 3.2 g/dL (2.2-4.2); Glucose 92 mg/dL (70-99); Lipase 60 U/L (13-75); Potassium 3.5 mmol/L (3.3-5.1); Protein, Total 7.5 g/dL (5.9-8.4); Sodium Level 137 mmol/L (133-145); Total Bilirubin 0.15 mg/dL (0.00-1.30)
[2025-03-16 01:00] VITALS: BP 108/70; PULSE 68; RESP 18; O2SAT 98
[2025-03-16 01:04] VITALS: BP 112/80; PULSE 68; RESP 12; TEMP 36.6; O2SAT 100
== END 2025-03-16 01:04 | disposition home or self-care (01) ==
PROVIDERS: Emergency Provider Emergency Medicine; PCP Nurse Practitioner Family; Visit Provider Emergency Medicine
DX: R10.9 Unspecified abdominal pain (principal); Z87.891 Personal history of nicotine dependence
CPT/HCPCS: 74177; 80053; 81001; 83605; 83690; 85025; 96361; 96374; 96375; 99285; Q9967; A4216; J2405

== ENCOUNTER → 2025-04-12 | Outpatient (CLI) | payer BC, SELFPAY ==
--- NOTE | 2025-04-12 07:27 | US_ITS ---
PROCEDURE: GALLBLADDER 04/12/2025 REASON FOR EXAM: RUQ PAIN, NAUSEA COMPARISON: CT from 03/16/2025 FINDINGS: Liver: Measures 13.3 cm. Normal echogenicity. Gallbladder: 1 cm gallstone noted at the neck of the gallbladder. No gallbladder wall thickening. No pericholecystic fluid. Negative Ennis's sign. Common bile duct: Measures 6 mm. No intrahepatic biliary dilatation . Pancreas: Unremarkable Other: Right kidney is normal in size and normal in echogenicity. US/Gallbladder IMPRESSION: Cholelithiasis without acute cholecystitis. Reading Location: [id number]
== END | disposition home or self-care (01) ==
PROVIDERS: PCP Nurse Practitioner Family
DX: R10.11 Right upper quadrant pain (principal)
CPT/HCPCS: 76705

== ENCOUNTER 2025-04-16 18:09 | Emergency (ER) | payer BC, SELFPAY ==
[2025-04-16 18:10] VITALS: BP 137/78; PULSE 80; RESP 19; TEMP 36.7; O2SAT 98; BMI 25.9
[2025-04-16 19:15] LABS: Absolute Lymphocyte Count 2.42 X10^3/uL (0.83-4.51); Absolute Neutrophil Count 4.6 X10^3/uL (2.0-7.7); Basophil# 0.05 X10^3/uL; Basophil% 0.6 % (0-1); Eosinophil# 0.14 X10^3/uL; Eosinophils% 1.8 % (0-5); Hematocrit 39.8 % (37-47); Hemoglobin 12.9 g/dL (12.0-15.0); Lymphocyte # 2.42 X10^3/ul (0.83-4.51); Lymphocyte % 30.6 % (19-41); Mean Corp Hgb Conc 32.4 g/dL (32-36); Mean Corpuscular Hgb 28.9 pg (27.0-32.0); Mean Corpuscular Volume 89.2 fL (81-99); Mean Platelet Vol. 10.7 fl (6.2-12.0); Monocyte# 0.66 X10^3/uL; Monocyte% 8.3 % (0-10); NRBC Flagged by Analyzer 0 % (0-5); Neutrophil # 4.62 X10^3/uL (2.7-7.7); Neutrophil % 58.4 % (47-70); Platelet Count 267 K/mm3 (150-450); RBC Distribution Width CV 12.3 % (11.6-14.6); RBC Distribution Width SD 39.9 fl (35.1-43.9); Red Blood Count 4.46 M/mm3 (4.2-5.4); White Blood Count 7.9 K/mm3 (4.4-11.0)
[2025-04-16 19:41] LABS: Internal QC Validated? YES +Cl - CLEAR BKGD; Pregnancy, Serum, hCG Quali. NEGATIVE Negative
[2025-04-16 19:43] LABS: ALB/GLOB Ratio 1.5 RATIO (0.9-2.4); AST(SGOT) 23 U/L (<=31); Alanine Aminotransfer ALT/SGPT 12 U/L (<=34); Albumin, Serum 4.7 g/dL (3.5-5.0); Alkaline Phosphatase 97 U/L (35-104); Anion Gap 12 (5-15); BUN 13 mg/dL (4-19); Calcium,Total 9.4 mg/dL (7.6-11.0); Carbon Dioxide 22.8 mmol/L (21.0-32.0); Chloride 105 mmol/L (98-108); Creatinine, Serum 0.93 mg/dL (0.70-1.20); EST Glomerular Filtration Rate 78 (>60); Globulin 3.2 g/dL (2.2-4.2); Glucose 92 mg/dL (70-99); Lipase 39 U/L (13-75); Potassium 4.1 mmol/L (3.3-5.1); Protein, Total 7.9 g/dL (5.9-8.4); Sodium Level 139 mmol/L (133-145); Total Bilirubin 0.31 mg/dL (0.00-1.30)
[2025-04-16 21:50] VITALS: BP 127/84; PULSE 78; RESP 16; TEMP 36.7; O2SAT 98
[2025-04-16 21:54] LABS: Bacteria 0 SEEN /hpf (None Seen); Mucous, Urine 0 SEEN /hpf (<or=2+)
[2025-04-16 21:59] LABS: Color, Urine Yellow (Yellow); Glucose, Dipstick Normal (Normal); Ketone-Dipstick 50 mg/dl (Negative); Leukocyte Esterase-Dipstick 25 /ul (Negative); Nitrite-Dipstick Negative (Negative); Occult Blood-Urine 25 /ul (Negative); Protein-Dipstick 30 mg/dl (Negative); Urine Bilirubin Dipstick Negative (Negative); Urine Clarity Clear (Clear); Urine Urobilinogen Normal (Normal)
[2025-04-16 22:05] LABS: Red Blood Cells-Urine 0-5 SEEN /hpf (0-5); Squamous Epithelial Cells - UA 0-5 SEEN /hpf (5-10); White Blood Cells 0-5 SEEN /hpf (0-5)
[2025-04-16 22:21] VITALS: BP 124/80; PULSE 80; RESP 16; TEMP 36.6; O2SAT 99
--- NOTE | 2025-04-16 22:51 | EDS_ITS ---
HPI History of Present Illness Chief Complaint: Abd Pain [facility] Medical History COVID Wears hearing aid Loss of hearing Depression Restless legs History of chemical tubal occlusion Wears glasses Wears contact lenses Anxiety Alcohol use Back pain Injury of back Former smoker History of herniated intervertebral disc Stomach ulcer Home Medications ?Medication ?Instructions ?Recorded ?Last Taken ?Type cholecalciferol (vitamin D3) 25 25 mcg PO DAILY 07/17/24 History mcg (1,000 unit) chewable tablet (Vitamin D3) citalopram 40 mg tablet 40 mg PO DAILY 04/24/2101/08 History bupropion HCl 150 mg 24 hr tablet, 150 mg PO QDAY 04/1607/17/24 History extended release acetaminophen 500 mg tablet 500 mg PO Q6H #30 tabs 03/08 Unknown Rx drospirenone (contraceptive) 4 mg 1 tab PO QDAY Unknown History (28) tablet (Slynd) Allergy/AdvReac Type Severity Reaction Status Date / Time morphine AdvReac Itching Verified 04/16/25 18:12 Family History Other Alcoholism CVA (cerebral vascular accident) Heart disease Osteoporosis Thyroid disorder Surgical History History of hysteroscopy History of tonsillectomy and adenoidectomy Hx of laparoscopy History of foot surgery History of delivery Social History Smoking Status: Former smoker alcohol intake: current alcohol intake frequency: holidays/special occasions only substance use type: does not use what type of physical activity do you participate in: yoga frequency: 3-4 times per week EXAM Physical Exam Const Vital Signs: 04/16/25 18:10 04/16/25
--- NOTE | 2025-04-16 22:51 | EX.ED.DYSGE1 ---
HPI History of Present Illness Chief Complaint: Abd Pain [facility] Medical History COVID Wears hearing aid Loss of hearing Depression Restless legs History of chemical tubal occlusion Wears glasses Wears contact lenses Anxiety Alcohol use Back pain Injury of back Former smoker History of herniated intervertebral disc Stomach ulcer Home Medications ?Medication ?Instructions ?Recorded ?Last Taken ?Type cholecalciferol (vitamin D3) 25 25 mcg PO DAILY 04/24/21 07/17/24 History mcg (1,000 unit) chewable tablet (Vitamin D3) citalopram 40 mg tablet 40 mg PO DAILY 04/24/21 07/17/24 History bupropion HCl 150 mg 24 hr tablet, 150 mg PO QDAY 05/05/24 07/17/24 History extended release acetaminophen 500 mg tablet 500 mg PO Q6H #30 tabs 07/19/24 Unknown Rx drospirenone (contraceptive) 4 mg 1 tab PO QDAY 10/10/24 Unknown History (28) tablet (Slynd) Allergy/AdvReac Type Severity Reaction Status Date / Time morphine AdvReac Itching Verified 04/16/25 18:12 Family History Other Alcoholism CVA (cerebral vascular accident) Heart disease Osteoporosis Thyroid disorder Surgical History History of hysteroscopy History of tonsillectomy and adenoidectomy Hx of laparoscopy History of foot surgery History of delivery Social History Smoking Status: Former smoker alcohol intake: current alcohol intake frequency: holidays/special occasions only substance use type: does not use what type of physical activity do you participate in: yoga frequency: 3-4 times per week EXAM Physical Exam Const Vital Signs: 04/16/25 18:10 04/16/25 21:50 04/16/25 22:21 Temperature 98.1 F 98.1 F 98 F Temperature Source Oral Temporal Temporal Pulse Rate 80 78 80 Respiratory Rate 19 H 16 16 Blood Pressure 137/78 H 127/84 H 124/80 H Blood Pressure Mean 97 98 94 Pulse Ox 98 98 99 Oxygen Delivery Method Room Air Room Air 04/17/25 00:21 Temperature 98.1 F Temperature Source Temporal Pulse Rate 74 Respiratory Rate 16 Blood Pressure 123/77 H Blood Pressure Mean 92 Pulse Ox 98 Oxygen Delivery Method [facility] [place] Medical decision making narrative: HISTORY OF PRESENT ILLNESS: Chief complaint: Abdominal pain, nausea vomit 42-year-old female history of gallstones presents with abdominal pain nausea vomiting. She notes this began late last night. Improved somewhat but still nauseous. Notes history of laparoscopy and hysteroscopy. Denies blood in her vomit. Denies trouble urinating. Denies constipation. REVIEW OF SYSTEMS: Pertinent positives: Abdominal pain, nausea vomiting Pertinent negatives: As per HPI PHYSICAL EXAM: Nursing triage notes reviewed, Vital signs reviewed Constitutional: please see [facility] HENT: MMM Eyes: Pupils equal round and reactive to light, Extraocular muscles intact Neck: No stridor, no JVD, full neck ROM Lungs: Clear to auscultation, No wheezing or rales. No increased work of breathing, no conversational dyspnea, no accessory muscle use, no nasal flaring. No respiratory distress noted Heart: Regular rate and rhythm, No murmurs, No rubs and No gallops, 2+ distal pulses (radial, femoral, posterior tibial) in all extremities Abdomen: Positive Ennis sign, right upper quadrant TTP : No CVAT Extremities: No edema Neuro: No new focal neurological deficits, cranial nerves II through XII intact, 5/5 strength in all present extremities. Intact sensation to light touch in all present extremities, 2+ reflexes bilateral patella tendons. Skin: No rash or lesions noted MEDICAL DECISION MAKING: Chief Complaint: please see [facility] External records reviewed: Reviewed prior imaging studies: Reviewed right required ultrasound from April 12, 2025 (4 days ago) showed 1 cm gallstone of the neck of the gallbladder, no gallbladder wall thickening, pericholecystic fluid, negative Ennis sign. Read was cholelithiasis without acute cholecystitis Factors affecting care: gallstone Social determinants of health: Denies alcohol History obtained from others: none Consults: General Surgery (Dr. Gold) -recommended against acute surgical invention. [facility] Narrative: The patient was initially hemodynamically stable, afebrile and nontoxic-appearing. Exam positive Ennis sign. No peritoneal signs. I considered the following differential diagnosis: AAA, small bowel obstruction, abdominal perforation, appendicitis, pancreatitis, hepatobiliary pathology (acute cholecystitis), mesenteric ischemia, pathology (ie nephrolithiasis, pyelonephritis). Triage labs replace per protocol secondary to poor department of dynamics including high volume and high acuity. Triage labs were placed including CBC, CMP, urinalysis, lipase, urine test ALL IMAGES (IF OBTAINED) HAVE BEEN PERSONALLY REVIEWED AND INTERPRETED BY MYSELF. CBC without leukocytosis, severe anemia, no thrombocytopenia. CMP without evidence of acute kidney injury, significant electrolyte abnormality, anion gap to suggest end organ hypo-perfusion, no evidence of metabolic acidosis with a normal bicarbonate, no evidence of hepatobiliary obstructive pathology. Urinalysis shows no evidence of urinary inflammation suggestive of UTI Urine is negative Lipase is wnl indicating no pancreatic inflammation. Right upper quadrant ultrasound shows gallstones Patient was evaluated by general surgery. General surgery recommended discharge. Recommended against acute surgical intervention. The patient and/or family, caregivers express understanding. The patient and/or family, caregivers agrees with the plan. Shared decision making: I will have a discussion with the patient and or visitors regarding risk/benefits of further testing or admission. They will be made aware of of the risk/benefits inherent in this decision they will be given the opportunity to voice understanding. Total critical care time today provided was at least 0 minutes. This excludes separately billable procedures. Critical care time (if documented) is secondary to the patient having high probability of clinically significant/life threatening deterioration in the patient's condition which required my urgent intervention. Impression: 1. Acute abdominal pain 2. Biliary colic Dispo: Discharge home This note was generated with [employer] dictation software. It may contain incorrect words, spelling, and punctuation that were not noted in review of the chart prior to signing. Lab Data Labs: Laboratory Results - last 24 hr 04/16/25 04/16/25 18:51 21:46 WBC 7.9 RBC 4.46 Hgb 12.9 Hct 39.8 MCV 89.2 MCH 28.9 MCHC 32.4 RDW Std Deviation 39.9 RDW Coeff of Magui 12.3 Plt Count 267 MPV 10.7 Immature Gran % (Auto) 0.300 Neut % (Auto) 58.4 Lymph % (Auto) 30.6 [place] % (Auto) 8.3 Eos % (Auto) 1.8 Baso % (Auto) 0.6 Absolute Neuts (auto) 4.6 Absolute Lymphs (auto) 2.42 Nucleated RBC % 0 Sodium 139 Potassium 4.1 Chloride 105 Carbon Dioxide 22.8 Anion Gap 12 BUN 13 Creatinine 0.93 Estim Creat Clear Calc 75.00 Est GFR (MDRD) Non-Af 78 BUN/Creatinine Ratio 14.0 Glucose 92 Calcium 9.4 Total Bilirubin 0.31 AST 23 ALT 12 Alkaline Phosphatase 97 Total Protein 7.9 Albumin 4.7 Globulin 3.2 Albumin/Globulin Ratio 1.5 Lipase 39 Serum , Qual NEGATIVE Urine Color Yellow Urine Clarity Clear Urine pH 6.0 Ur Specific [place] 1.020 Urine Protein 30 H Urine Glucose (UA) Normal Urine Ketones 50 H Urine Occult Blood 25 H Urine Nitrite Negative Urine Bilirubin Negative Urine Urobilinogen Normal Ur Leukocyte Esterase 25 H Urine RBC 0-5 SEEN Urine WBC 0-5 SEEN Ur Squamous Epith Cells 0-5 SEEN Urine Bacteria 0 SEEN Urine Mucus 0 SEEN Radiography Diagnostic Testing: Clinical Impression(s) from Imaging Studies Gallbladder Ultrasound 04/16/25 23:00 IMPRESSION: 1. Cholelithiasis with positive sonographic Ennis's sign, equivocal for acute cholecystitis in the setting of normal wall thickness and no pericholecystic fluid. Consider Surgical consultation if clinical concern persists. 2. Findings suggestive of mild hepatic steatosis. Reading Location: [id number] Discharge Plan Triage Chief Complaint: Abd Pain ED Provider: [facility] Dx/Rx/DC Orders Prescriptions: No Action bupropion HCl 150 mg tablet extended release 24 hr 150 mg PO QDAY Slynd 4 mg (28) tablet 1 tab PO QDAY citalopram 40 mg tablet 40 mg PO DAILY Patient Comments: take 1 tablet by mouth once daily cholecalciferol (vitamin D3) [Vitamin D3] 25 mcg (1,000 unit) Tablet,Chewable 25 mcg PO DAILY acetaminophen 500 mg Tablet 500 mg PO Q6H Qty: 30 0RF Primary Care Provider: Dolores Mann NP Referrals: Dolores Mann NP, [employer] [Primary Care Provider] - Print Language: Salvadorean
--- NOTE | 2025-04-16 23:00 | US_ITS ---
PROCEDURE: GALLBLADDER 04/16/2025 REASON FOR EXAM: RUQ US COMPARISON: Abdominal ultrasound 04/12/2025 FINDINGS: Liver: Normal length of 14.2 cm. Echogenicity is mildly increased relative to the right kidney. Hepatopetal portal venous flow. Gallbladder: Echogenic shadowing gallstone at the neck. Gallbladder measures 5.8 cm in length. Normal wall thickness of 0.2 cm. No pericholecystic fluid. Sonographic Ennis's sign is positive per technologist report. Common bile duct: Normal measuring 6 mm. Pancreas: Visualized portions are unremarkable. The distal body and tail are obscured by bowel gas. Other: Visualized portions of the right kidney are unremarkable. No right upper quadrant ascites. US/Gallbladder IMPRESSION: 1. Cholelithiasis with positive sonographic Ennis's sign, equivocal for acute cholecystitis in the setting of normal wall thickness and no pericholecystic fluid. Consider Surgical consultation if clin ical concern persists. 2. Findings suggestive of mild hepatic steatosis. Reading Location: [facility]
[2025-04-17] MEDS: 0.9% Normal Saline (1000mL) 1,000 ML 999 ML IV (00:20)
[2025-04-17 00:21] VITALS: BP 123/77; PULSE 74; RESP 16; TEMP 36.7; O2SAT 98
[2025-04-17] MEDS: Ondansetron 4 MG/2 ML Vial IV (00:21)
--- NOTE | 2025-04-17 01:30 | PCM.HP.STD ---
[facility] - [facility] Date of Service: 04/17/25 Chief Complaint: Acute onset upper abdominal pain [facility] Narrative ERIBERTO CORREA, is a 44 F who presents to [facility] with complaints of abdominal pain and associated nausea that began 2 days ago. Patient states that she had dinner approximately 1800 on 04/15/2025 thereafter began with upper abdominal pain and nausea just 30 minutes following. She describes this pain as a searing and burning character. She was able to find sleep and upon awakening in the morning experienced further nausea. However, she also adds that she became really hungry and had an uncrustable and a bagel for breakfast. Thereafter the nausea persisted and she first reached out to outpatient GI office for guidance but then elected to come to the emergency department. Upon arrival patient underwent laboratory testing and ultrasound imaging. She states that she now feels better than upon presentation Patient's laboratories are completely within normal limits?including no evidence of leukocytosis or left shift. Ultrasound imaging is read by radiology as equivocal for acute cholecystitis given presence of positive sonographic Ennis sign as reported by technologist. Because of potentially positive Ennis sign for emergency medicine physician I have been asked to evaluate. Patient relays a history of prior presentation to the emergency department on 03/15/2025 where she sought further evaluation of, again, searing and burning pain that she relates was of greater intensity than even her most recent episode. She shares she underwent CT imaging and then was given a follow-up with gastroenterology as an outpatient. This latter visit resulted in a ultrasound which was completed last week. Patient states that she learned of the results of that study after calling in yesterday with complaints of symptoms. She has that she was to be given referral to surgery upon receiving those results. Patient's past surgical history includes laparoscopic exploration for endometriosis with resultant tubal excision on the right as well as appendectomy. Patient states that then just a year ago she underwent second laparoscopy for uterine perforation from an IUD and this included removal of her left fallopian tube. [facility] Medical History COVID Wears hearing aid Loss of hearing Depression Restless legs History of chemical tubal occlusion Wears glasses Wears contact lenses Anxiety Alcohol use Back pain Injury of back Former smoker History of herniated intervertebral disc Stomach ulcer Home Medications ?Medication ?Instructions ?Recorded ?Last Taken ?Type cholecalciferol (vitamin D3) 25 25 mcg PO DAILY 04/24/21 07/17/24 History mcg (1,000 unit) chewable tablet (Vitamin D3) citalopram 40 mg tablet 40 mg PO DAILY 04/24/21 07/17/24 History bupropion HCl 150 mg 24 hr tablet, 150 mg PO QDAY 05/05/24 07/17/24 History extended release acetaminophen 500 mg tablet 500 mg PO Q6H #30 tabs 07/19/24 Unknown Rx drospirenone (contraceptive) 4 mg 1 tab PO QDAY 10/10/24 Unknown History (28) tablet (Slynd) ondansetron 4 mg disintegrating 4 mg PO Q8H PRN PRN Nausea #10 tabs 04/17/25 Unknown Rx tablet Allergy/AdvReac Type Severity Reaction Status Date / Time morphine AdvReac Itching Verified 04/16/25 18:12 Family History Other Alcoholism CVA (cerebral vascular accident) Heart disease Osteoporosis Thyroid disorder Surgical History History of hysteroscopy History of tonsillectomy and adenoidectomy Hx of laparoscopy History of foot surgery History of delivery Social History Smoking Status: Former smoker alcohol intake: current alcohol intake frequency: holidays/special occasions only substance use type: does not use what type of physical activity do you participate in: yoga frequency: 3-4 times per week Vital Signs Vital Signs Vital Signs: 04/16/25 18:10 04/16/25 21:50 04/16/25 22:21 Temperature 98.1 F 98.1 F 98 F Temperature Source Oral Temporal Temporal Pulse Rate 80 78 80 Respiratory Rate 19 H 16 16 Blood Pressure 137/78 H 127/84 H 124/80 H Blood Pressure Mean 97 98 94 Pulse Ox 98 98 99 Oxygen Delivery Method Room Air Room Air 04/17/25 00:21 Temperature 98.1 F Temperature Source Temporal Pulse Rate 74 Respiratory Rate 16 Blood Pressure 123/77 H Blood Pressure Mean 92 Pulse Ox 98 Oxygen Delivery Method Weight Weight: 151 lb 6.4 oz Body Mass Index (BMI) 25.9 Physical Exam Const alert, oriented x3 and no apparent distress Resp normal respiratory effort GI GI Narrative: Slender, nondistended, no visible scars, no visible herniations. Soft, mildly tender to palpation right upper quadrant with negative Ennis sign. Results Lab / Micro Data 04/16/25 18:51 04/16/25 18:51 Labs: Laboratory Results - last 24 hr 04/16/25 18:51: WBC 7.9, RBC 4.46, Hgb 12.9, Hct 39.8, MCV 89.2, MCH 28.9, MCHC 32.4, RDW Std Deviation 39.9, RDW Coeff of Magui 12.3, Plt Count 267, MPV 10.7, Immature Gran % (Auto) 0.300, Neut % (Auto) 58.4, Lymph % (Auto) 30.6, [place] % (Auto) 8.3, Eos % (Auto) 1.8, Baso % (Auto) 0.6, Absolute Neuts (auto) 4.6, Absolute Lymphs (auto) 2.42, Nucleated RBC % 0, Sodium 139, Potassium 4.1, Chloride 105, Carbon Dioxide 22.8, Anion Gap 12, BUN 13, Creatinine 0.93, Estim Creat Clear Calc 75.00, Est GFR (MDRD) Non-Af 78, BUN/Creatinine Ratio 14.0, Glucose 92, Calcium 9.4, Total Bilirubin 0.31, AST 23, ALT 12, Alkaline Phosphatase 97, Total Protein 7.9, Albumin 4.7, Globulin 3.2, Albumin/Globulin Ratio 1.5, Lipase 39, Serum , Qual NEGATIVE 04/16/25 21:46: Urine Color Yellow, Urine Clarity Clear, Urine pH 6.0, Ur Specific [place] 1.020, Urine Protein 30 H, Urine Glucose (UA) Normal, Urine Ketones 50 H, Urine Occult Blood 25 H, Urine Nitrite Negative, Urine Bilirubin Negative, Urine Urobilinogen Normal, Ur Leukocyte Esterase 25 H, Urine RBC 0-5 SEEN, Urine WBC 0-5 SEEN, Ur Squamous Epith Cells 0-5 SEEN, Urine Bacteria 0 SEEN, Urine Mucus 0 SEEN Imaging Radiology Impression Gallbladder Ultrasound 04/16/25 23:00 IMPRESSION: 1. Cholelithiasis with positive sonographic Ennis's sign, equivocal for acute cholecystitis in the setting of normal wall thickness and no pericholecystic fluid. Consider Surgical consultation if clinical concern persists. 2. Findings suggestive of mild hepatic steatosis. Reading Location: [id number] Assessment & Plan Assessment/Plan (1) Cholelithiasis without cholecystitis: PLAN: Patient 44-year-old female who was evaluated emergency department after presentation for acute onset epigastric abdominal discomfort and associated nausea. Patient states that her presentation is principally for the nausea which has yet to remit since its onset approximately 48 hours earlier. While she shares that she was trying to watch her diet for fatty foods she states that her symptoms followed a meal of peppery brisket. She notes that the symptoms began approximately 30 to 45 minutes postingestion. ER workup is fairly negative showing no evidence of leukocytosis, left shift, transaminitis, or hyperbilirubinemia. Ultrasound of the right upper quadrant shows gallstone in the neck of the gallbladder and technologist that reported positive Ennis sign. However, upon my exam patient's Ennis sign is negative and she describes that application of pressure in the right upper quadrant just elicits more nausea for her. I discussed with her that the evidence for a stone in the gallbladder neck was noted in my independent review of her CT exam from 03/15/2025. This finding was reproduced with her ultrasound last week. I shared the persistence of the gallstone in the gallbladder neck is likely to continue to cause symptoms and ultimately I would recommend she consider cholecystectomy. However, I find no cause to recommend inpatient admission for urgent/emergent cholecystectomy. Instead, I recommend discharge to home with a restricted diet and will plan to follow-up with patient later this week to schedule outpatient cholecystectomy with intraoperative cholangiography at a relatively short interval. Patient confirms understanding appreciation. Emergency medicine been notified of the plan as formulated. Rajinder Gold MD General Surgery Endocrine Surgery Pager: [facility] [address] [place] [address], [address] [place] [address] Office: [phone] Charges/Coding Visit Charges Office Visits / Consults: 60913 ED Visit; Moderate Severity
[2025-04-17 01:48] VITALS: BP 118/85; PULSE 73; RESP 16; TEMP 36.8; O2SAT 97
== END 2025-04-17 01:51 | disposition home or self-care (01) ==
PROVIDERS: Emergency Provider Emergency Medicine; PCP Nurse Practitioner Family; Referring Provider Emergency Medicine; Visit Provider Emergency Medicine
DX: R10.9 Unspecified abdominal pain (principal); Z87.891 Personal history of nicotine dependence; K80.70 Calculus of gallbladder and bile duct without cholecystitis without obstruction
CPT/HCPCS: 76705; 80053; 81001; 83690; 84703; 85025; 96361; 96374; 99282; A4216; J2405

== ENCOUNTER 2025-04-25 05:58 | Day surgery (SDC) | payer BC, SELFPAY ==
[2025-04-25] VITALS (11 sets, daily range): BP systolic 103–119; BP diastolic 66–77; PULSE 82–97; RESP 14–20; TEMP 36.1–37.6; O2SAT 95–100; BMI 25.3
--- OUTSIDE RECORDS SUMMARY | 2025-04-25 06:12 | XMS RPT_ITS | CCD ---
Author Organization [facility] Care Team Providers Care Delinquent Notice Machine Operator Name Role Phone Lucie Lucio LPN Unavailable Unavailable Marycruz Mcclure MD Primary Care Provider Podlogar TEXTILE MACHINERY INSTRUCTOR, TEXTILE MACHINERY INSTRUCTOR-C Prachi Primary Care Provider [phone] Podlogar TEXTILE MACHINERY INSTRUCTOR, TEXTILE MACHINERY INSTRUCTOR-C Prachi Referring Provider Dr. Marissa Baires Attending Provider [phone] Lucie Lucio LPN Unavailable Unavailable Marycruz Mcclure MD Primary Care Provider Lucie Lucio LPN Unavailable Unavailable Podlogar TEXTILE MACHINERY INSTRUCTOR, TEXTILE MACHINERY INSTRUCTOR-C Prachi Primary Care Provider [phone] Podlogar TEXTILE MACHINERY INSTRUCTOR, TEXTILE MACHINERY INSTRUCTOR-C Prachi Referring Provider Dr. Marissa Baires Attending Provider [phone] Podlogar TEXTILE MACHINERY INSTRUCTOR, TEXTILE MACHINERY INSTRUCTOR-C Prachi Primary Care Provider [phone] Podlogar TEXTILE MACHINERY INSTRUCTOR, TEXTILE MACHINERY INSTRUCTOR-C Prachi Referring Provider Dr. Marissa Baires Attending Provider [phone] Marycruz Mcclure MD Primary Care Provider JOHNATHAN GONZALEZ-DOLORES DUMONT Primary Care Physician DOLORES HERNANDEZ Attending DOLORES Moore Primary Care Symone WRAY MD, DR NESS Hammonds Attending Unavail able DOLORES HERNANDEZ Primary Care Symone aguilera Podlogar Prachi DAS Unavailable BERHANE FERRELL Referring Unavailable MARYCRUZ MCCLURE Primary Care Unavailab le BURSLEY, CHRISTOPHER B Primary Care Unavailab le REAPER, BERHANE Attending Unavailable HAURY, LISHA Referring Unavailable BURSLEY, CHRISTOPHER B Primary Care Unavailab le LINDSEY, DRAGAN Attending Unavailable LINDSEY, DRAGAN Referring Unavailable BURSLEY, CHRISTOPHER B Primary Care Unavailab le LINDSEY, DRAGAN Attending Unavailable LINDSEY, DRAGAN Referring Unavailable BURSLEY, CHRISTOPHER B Primary Care Unavailab le BURSLEY, CHRISTOPHER B Primary Care Unavailab le LINDSEY, DRAGAN Attending Unavailable BURSLEY, CHRISTOPHER B Primary Care Unavailab le BURSLEY, CHRISTOPHER B Primary Care Unavailab le HAURY, LISHA Referring Unavailable HAURY, LISHA Referring Unavailable BURSLEY, CHRISTOPHER B Primary Care Unavailab le HAURY, LISHA Attending Unavailable BURSLEY, CHRISTOPHER B Primary Care Unavailab le BURSLEY, CHRISTOPHER B Primary Care Unavailab le REAPER, BERHANE Referring Unavailable Mann TEXTILE MACHINERY INSTRUCTOR-C, Dolores Primary Care Provider Dr. Austin Rhodes DO Attending Provider [phone] Dr. Austin Rhodes DO Emergency Provider Johnathan TEXTILE MACHINERY INSTRUCTOR-C, Dolores Referring Provider Romeo TEXTILE MACHINERY INSTRUCTOR-C, Park Attending Provider [phone] Romeo TEXTILE MACHINERY INSTRUCTOR-C, Park Referring Provider [phone] Dr. Kaiser Bean DO Referring Provider [phone] Dr. Kaiser Bean DO Emergency Provider Dr. Rajinder Gold MD Attending Provider Dr. Kaiser Bean DO Attending Provider Mann, Dolores Primary Care Unavailable Mann, Dolores Referring Unavailable Mac Mcintyre Attending Unavailable Mac Mcintyre Attending Unavailable Podlogar TEXTILE MACHINERY INSTRUCTOR, Prachi Referring Unavailable Podlogar TEXTILE MACHINERY INSTRUCTOR, Prachi Primary Care Unavailable Mac Mcintyre Attending Unavailable Podlogar TEXTILE MACHINERY INSTRUCTOR, Prachi Referring Unavailable Mann, Dolores Primary Care Unavailable Rajinder Gold Attending Unavailable Mann, Dolores Referring Unavailable Mann, Dolores Primary Care Unavailable Mann, Dolores Primary Care Unavailable Bertha Conklin Attending Unavailable Podlogar TEXTILE MACHINERY INSTRUCTOR, Prachi Referring Unavailable Bortz, Rajinder Referring Unavailable Asif, Rajinder Attending Unavailable Bortz, Rajinder Admitting Unavailable Mann, Dolores Primary Care Unavailable Walters, Park Referring Unavailable Walters, Park Attending Unavailable Mann, Dolores Primary Care Unavailable Mann, Dolores Primary Care Unavailable Bertha Conklin Attending Unavailable Mcintyre, Mac Admitting Unavailable Mcintyre, Mac Referring Unavailable Mcintyre, Mac Attending Unavailable Koram, Patti Yamini Consulting Unavailable Mann, Dolores Primary Care Unavailable Shanna Connor Consulting Unavailable Vikas, Kaiser Referring Unavailable Vikas, Kaiser Attending Unavailable Mann, Dolores Primary Care Unavailable Mann, Dolores Primary Care Unavailable Austin Rhodes Attending Unavailable Mann, Dolores Primary Care Unavailable Libra, Dionte Attending Unavailable Mann, Dolores Primary Care Unavailable Mann, Dolores Referring Unavailable Mcintyre, Mac Attending Unavailable Mann, Dolores Primary Care Unavailable Libra, Brimfield Attending Unavailable Mann, Dolores Referring Unavailable Mann, Dolores Primary Care Unavailable Park Walters Attending Unavailable Mann, Dolores Referring Unavailable RubinBertha Attending Unavailable Mann, Dolores Primary Care Unavailable Libra, Dionte Attending Unavailable Mann, Dolores Primary Care Unavailable Mcintyre, Mac Referring Unavailable LaloHenrietta Attending Unavailable Mann, Dolores Primary Care Unavailable Mcintyre, Mac Referring Unavailable Mcintyre, Mac Attending Unavailable Mann, Dolores Primary Care Unavailable Mcintyre, Mac Consulting Unavailable Mcintyre, Mac Referring Unavailable Koram, Patti Yamini Attending Unavailable Koram, Patti Yamini Consulting Unavailable Mann, Dolores Primary Care Unavailable Mcintyre, Mac Consulting Unavailable Asif, Rajinder Attending Unavailable Vikas, Kaiser Referring Unavailable Mann, Dolores Primary Care Unavailable Mann, Dolores Primary Care Unavailable Libra, Brimfield Attending Unavailable Allergies Allergy Classification Reported Allergen(s) Allergy Type Date of Onset Reaction(s) Facility (20 sources) Morphine; Translations: [morphine] Drug Allergy 4 Itching, Eruption of skin (disorder) [facility] Work Phone: (1 source) Morphine Drug Allergy 5 [facility] Rep[facility] Medications Current Medications Medication Drug Class(es) Dates Sig (Normalized) Sig (Original) acetaminophen 500 mg oral tablet (2 sources) Start: 07-19-2024 take 1 tablet by mouth every six hours Acetaminophen 500 mg Tablet Active 500 mg PO EVERY 6 HOURS July 19, 2024 12:00am 12 hr buPROPion hydrochloride 150 mg extended release oral tablet (20 sources) Aminoketone Start: 05-05-2024 take 1 tablet by mouth once daily Bupropion Hcl 150 mg tablet extended release 24 hr Active 150 mg PO daily May 05, 2024 12:00am Start: 01-03-2024 End: 06-11-2025 take 1 tablet by mouth every hour, then take 1 tablet by mouth every twenty-four hours buPROPion 150 mg/24 hours (XL) oral tablet, extended release Dose : 150 mg = 1 tab(s), Oral, q24h, # 90 tab(s), 3 Refill(s), Pharmacy: [facility], 163, cm, 06/16/24 13:37:00 EDT, Height, kg, 06/16/24 13:37:00 EDT, Dosing Weight Start Date: 06/16/24 Stop Date: 06/11/25 Status: Ordered Start: 07-28-2022 take 1 tablet by mouth once da napoleon buPROPion XL (WELLBUTRIN XL) 150 mg 24 hr tablet take 1 tablet by mouth once daily DO NOT CRUSH, CHEW, AND/OR DIVIDE 07/28/2022 Active Comment on above: take 1 tablet by harman once daily DO NOT CRUSH, CHEW, AND/OR DIVIDE cholecalciferol 0.025 mg chewable tablet (20 sources) Vitamin D Start: 04-24-20 take 1 tablet by mouth once daily Cholecalciferol (Vitamin D3) (Vitamin D3) 25 mcg (1,000 unit) Tablet,Chewable Active 25 ug PO DAILY April 24, 2021 12:00am End: 10-02-2024 take 1 tablet by mouth once daily cholecalciferol (VITAMIN D3) 50 mcg (2,000 unit) tablet Take 1,000 Units by mouth once daily. 10/02/2024 Discontinued (Other) cholecalciferol (VITAMIN D-3) 2,000 unit tablet Take 1,000 Units by mouth once daily. 0 Active Comment on above: Take 1,000 Units by mouth once daily. citalopram 40 mg oral tablet (20 sources) Serotonin Reuptake Inhibitor Start: 04-24-20 End: 07-14-20 take 1 tablet by mouth once daily Citalopram 40 mg tablet Active 40 mg PO DAILY April 24, 2021 12:00am Comment on above: Take 1 tablet by harman th once daily. doxycycline monohydrate 100 mg oral capsule (3 sources) Tetracycline-class Drug Start: 09-11-20 End: 09-21-20 take 1 capsule by mouth twice daily doxycycline monohydrate (MONODOX) 100 mg capsule Take 1 capsule by mouth two times a day for 10 days. 20 capsule 09/11/2024 09/21/2024 Active drospirenone 4 mg oral tablet (2 sources) Progestin Start: 10-10-20 take 1 tablet by mouth once daily Drospirenone (Contraceptive) (Slynd) 4 mg (28) tablet Active 1 {tbl} PO daily October 10, 2024 1:00am drospirenone, contraceptive, (SLYND) 4 mg (28) tabet (4 sources) Start: 10-02-20 take 1 tablet by mouth once daily drospirenone, contraceptive, (SLYND) 4 mg (28) tabet Take 1 tablet by mouth once daily. 28 tablet 12 10/02/2024 Active 21 day ethinyl estradiol 0.676553 mg/hr / etonogestrel 0.005 mg/hr vaginal system (2 sources) Progestin, Estrogen Start: 01-03-20 ethinyl estradiol-etonogestrel 0.015 mg-0.120 mg/24 hours vaginal ring Dose = 1 EA, Vaginal, q4wk, Insert a new ring on day 1 and use for 3 weeks, remove for 1 week, then repeat cycle, # 3 EA, 0 Refill(s) Start Date: 01/03/24 Status: Ordered iv contrast (will be provided with radiology test) (2 sources) Start: 10-27-20 iv contrast (will be provided with radiology test) Indications: Pelvic and perineal pain , Ovarian cyst, right , Dysmenorrhea , Deep dyspareunia MRI Female Pelvis Inject, intravenously, once for 1 dose. No IV access, insert saline lock prior to the beginning of sedation, infusion, injection of imaging exam. Discontinue saline lock post exam. If Pt has a central line or IVAD, may access for administration according to line specific nursing protocol. Once exam is complete flush line and de-access according to line specific nursing protocol in the MR contrast administration guidelines link. 1 Each 10/27/2024 Active methocarbamol 500 mg oral tablet (8 sources) Muscle Relaxant Start: 08-03-20 methocarbamol (ROBAXIN) 500 mg tablet TAKE 1 AND 1/2 TABLETS BY MOUTH 3 TIMES A DAY NEEDED FOR PAIN/SPASMS 08/03/2024 Active Start: 07-19-2024 End: 12-04-2024 Methocarbamol 500 mg tablet Discontinued 750 mg PO THREE TIMES A DAY as needed for spasms/pain August 03, 2024 9:47am December 04, 2024 3:39pm miSOPROStol 0.2 mg oral tablet (1 source) Prostaglandin E1 Analog Start: 07-11-2024 End: 07-11-2024 miSOPROStol (CYTOTEC) 200 mcg tablet Use 2 tablets vaginally one time only for [address] vaginally the morning before the procedure 2 tablet 07/11/2024 07/11/2024 Active ondansetron 4 mg disintegrating oral tablet (2 sources) Serotonin-3 Receptor Antagonist Start: 04-17-2025 take 1 tablet by mouth every eight hours as needed for nausea Ondansetron 4 mg tablet,disintegra ting Active 4 mg PO EVERY 8 HOURS NEEDED as needed for Nausea April 17, 2025 12:00am Vit,Wucr75-Umcm-Xhjsy (4 sources) Start: 05-13-2016 take 1 tablet by mouth once daily Vit,Bzml94-Vpgn-U olic Active 1 TABLET PO DAILY May 13, 2016 12:00am Start: 05-13-2016 take 1 tablet by harman th once daily Vit,Iqed08-Gowr-Kemak Active 1 TABLET PO DAILY May 12, 2016 11:00pm Surgical Lubricant Jelly gel (2 sources) Start: 10-27-2024 Surgical Lubri cant Jelly gel Indications: Pelvic and perineal pain , Ovarian cyst, right , Dysmenorrhea , Deep dyspareunia For MRI Female Pelvis, MRI department to provide. Administer intra-vaginal Surgilube immediately prior the MRI procedure (total amount to patient toleranace). 3 g 10/27/2024 Active Completed/Discontinued Medications Medication Drug Class(es) Dates Sig (Normalized) Sig (Original) aspirin 81 mg chewable tablet (6 sources) Platelet Aggregation Inhibitor, Nonsteroidal Anti-inflammatory Drug Start: 10-20-2018 End: 10-23-2018 take 1 tablet by mouth once daily Aspirin 81 MG Tab.Chew Discontinued 81 mg PO DAILY@0800 October 20, 2018 1:00am October 23, 2018 8:40am 5 ml bupivacaine hydrochloride 5 mg/ml injection (1 source) Amide Local Anesthetic Start: 05-27-2022 End: 05-27-2022 bupivacaine (PF) 0.5 % (5 mg/mL) 2.5 mg injection 1 ml dexamethasone phosphate 4 mg/ml injection (1 source) Corticosteroid Start: 05-27-2022 End: 05-27-2022 dexAMETHasone sodium phosphate 2 mg injection (DECADRON) docusate sodium 50 mg / sennosides, custodial 8.6 mg oral tablet (2 sources) Start: 07-19-2024 End: 08-31-2024 Sennosides-Docusat e Sodium (Stimulant Laxative Plus) 8.6-50 mg Tablet Discontinued 2 {tbl} PO TWICE A DAY as needed for constipation July 19, 2024 1:21pm August 31, 2024 8:08am Ethinyl Estradiol / Norethindrone (6 sources) Estrogen Start: 03-11-2023 Norethindrone Acet-Ethinyl Est (LOESTRIN 1.5/30, 21,) 1.5-30 mg-mcg Take 1 tablet by mouth once daily. for continuous use, new pack q 3 weeks. Take until breakthrough bleeding then take a 4 days off and resume pills 84 tablet 3 03/11/2023 Active Start: 11-27-2022 End: 03-11-2023 take 1 tablet by mouth once daily Norethindrone Acet-Ethinyl Est (LOESTRIN 1.5/30, 21,) 1.5-30 mg-mcg Take 1 tablet by mouth once daily. Use as directed 28 tablet 12 11/27/2022 03/11/2023 Discontinued Start: 11-27-2022 take 1 tablet by harman th once daily Norethindrone Acet-Ethinyl Est (LOESTRIN 1.5/30, 21,) 1.5-30 mg-mcg Take 1 tablet by mouth once daily. Use as directed 28 tablet 12 11/27/2022 Active Comment on above: Take 1 tablet by harman once daily. Use as directed Take 1 tablet by harman once daily. for continuous use, new pack q 3 weeks. Take until breakthrough bleeding then take a 4 days off and resume pills 273 day ethinyl estradiol 0.221168 mg/hr / segesterone acetate 0.84891 mg/hr vaginal system (20 sources) Estrogen Start: 07-04-2024 End: 07-18-2024 Segesterone Ac-Ethin Estradiol (Annovera) 0.15-0.013 mg/24 hour ring Discontinued 1 NMA VAGINAL EVERY MONTH July 04, 2024 12:00am July 18, 2024 6:41am Start: 03-27-2024 End: 10-02-2024 segesterone ac-ethin estradi ol (ANNOVERA) 0.15-0.013 mg/24 hour vaginal ring Use 1 Each vaginally as directed. Insert 1 ring vaginally. Following insertion, ring should remain in place for 24 continuous days, then removed for 4 days 1 Each 03/27/2024 10/02/2024 Discontinued Start: 06-22-2023 End: 03-24-2024 segesterone ac-ethin estradi ol (ANNOVERA) 0.15-0.013 mg/24 hour vaginal ring Use 1 Each vaginally as directed. Insert 1 ring vaginally. Following insertion, ring should remain in place for 24 continuous days, then removed for 4 days 1 Each 0 06/22/2023 03/24/2024 Discontinued Comment on above: Use 1 Each vaginally as directed. Insert 1 ring vaginally. Following insertion, ring should remain in place for 24 continuous days, then removed for 4 days ibuprofen 600 mg oral tablet (6 sources) Nonsteroidal Anti-inflammatory Drug Start: 12-29-19 End: 07-19-20 take 1 tablet by mouth every six hours as needed for pain Ibuprofen 600 MG tablet Discontinued 600 mg PO EVERY 6 HOURS NEEDED as needed for Pain Score 1-3 December 29, 2020 1:00am July 19, 2024 1:20pm levonorgestrel 0.044506 mg/hr intrauterine system (6 sources) Progestin, Progestin-containing Intrauterine Device Start: 07-14-20 End: 07-13-20 levonorgestrel (MIRENA) 21 mcg/24 hr (8 yrs) 52 mg IUD Indications: Encounter for IUD insertion 1 Each by INTRAUTERINE route as directed. 1 Each 07/14/2024 10/02/2024 Discontinued meloxicam 15 mg oral tablet (8 sources) Nonsteroidal Anti-inflammatory Drug Start: 07-19-20 End: 12-04-19 take 1 tablet by mouth once daily Meloxicam 15 mg tablet Discontinued 15 mg PO DAILY July 19, 2024 12:00am December 04, 2024 3:39pm Start: 09-16-2023 End: 04-14-2024 take 1 tablet by mouth once meloxicam (MOBIC) 15 mg ta blet Take 1 tablet by mouth every afternoon. 0 09/16/2023 04/14/2024 Discontinued Start: 10-26-2022 End: 11-25-2022 take 1 tablet by mouth once daily meloxicam (MOBIC) 15 mg tablet Take 1 tablet by mouth once daily. 30 tablet 1 10/26/2022 11/25/2022 Active Comment on above: Take 1 tablet by harman th once daily. Take 1 tablet by harman th every afternoon. methylPREDNISolone (7 sources) Corticosteroid Start: 04-09-2022 End: 11-27-2022 methylPREDNISolone (MEDROL, DIPESH,) 4 mg Dose-Pack Take as directed 1 Package 0 04/09/2022 11/27/2022 Discontinued Start: 04-09-2022 methylPREDNISo lone (MEDROL, DIPESH,) 4 mg Dose-Pack Take as directed 1 Package 0 04/09/2022 Active Comment on above: Take as directed oxyCODONE hydrochloride 5 mg oral tablet (2 sources) Opioid Agonist Start: End: take 2.5-5 mg by mouth every six hours as needed for pain Oxycodone 5 mg Tablet Discontinued 2.5 - 5 mg PO EVERY 6 HOURS as needed for pain 28 7 July 19, 2024 August 31, 2024 8:08am Zukrnkhi-Vc-Kph-Fe-FA ( VITAMIN) tab (4 sources) take 1 tablet by mouth once Anpsrtar-Vv-Yte-Fe-FA ( VITAMIN) tab Take 1 tablet by mouth. 0 Active Comment on above: Take 1 tablet by harman th. Vkeduuvk-Uc-Mkr-Fe-FA tab (14 sources) End: take 1 tablet by mouth once Iuwgnbga-Nc-Wwk-Fe-FA tab Take 1 tablet by mouth. 0 04/14/2024 Discontinued take 1 tablet by mouth once Pren atal Qubptduj-Gm-Udc-Fe-FA tab Take 1 tablet by mouth. 0 Active Comment on above: Take 1 tablet by harman th. Vit,Joxh91-Gnwc-Anizb 1 TABLET tablet (2 sources) Start: 05-13-20 End: 07-04-20 24 take 1 tablet by mouth once daily Vit,Bkml44-Pbla-Mwby c 1 TABLET tablet Discontinued 1 {tbl} PO DAILY May 13, 2016 12:00am July 04, 2024 9:08am raNITIdine 150 mg oral tablet (6 sources) Histamine-2 Receptor Antagonist Start: 05-13-20 End: 12-29-19 21 take 1 tablet by mouth once daily Ranitidine Hcl 150 MG tablet Discontinued 150 mg PO DAILY May 13, 2016 12:00am December 29, 2020 10:24am tiZANidine 2 mg oral tablet (2 sources) Central alpha-2 Adrenergic Agonist Start: 05-05-20 End: 07-19-20 take 1 tablet by mouth at bedtime as needed Tizanidine 2 mg tablet Discontinued 2 mg PO AT BEDTIME as needed for muscle spasticity May 05, 2024 12:00am July 19, 2024 1:22pm triamcinolone acetonide 10 mg/ml injectable suspension (1 source) Corticosteroid Start: 05-27-20 End: 05-27-20 triamcinolone acetonide 5 mg injection (KeNALog 10) Problems Active Problems Problem Classification Problem Date Documented Da te Episodic/Chronic Abdominal pain (12 sources) Pain in female pelvis; Translations: [Pelvic and perineal pain] Onset: 09-12-2024 09-11-2024 Episodic Acquired foot deformities (4 sources) Acquired left hallux valgus; Translations: [Hallux valgus (acquired), left foot] Chronic Acquired foot deformities (4 sources) Tailor's bunion of left foot; Translations: [Bunionette of left foot] Episodic Biliary tract disease (5 sources) Biliary calculus; Translations: [Calculus of gallbladder without cholecystitis without obstruction] Onset: 04-19-2025 04-16-2025 Episodic Complication of device; implant or graft (7 sources) Malposition of intrauterine contraceptive device; Translations: [Displacement of intrauterine contraceptive device, initial encounter] 04-29-2021 Episodic Contraceptive and procreative management (6 sources) Sterilization requested; Translations: [Encounter for sterilization] 05-01-2021 Episodic Early or threatened labor (6 sources) False labor at or after 37 completed weeks of gestation; Translations: [False labor at or after 37 completed weeks of gestation] 05-01-2021 Episodic Endometriosis (5 sources) Endometriosis (clinical); Translations: [Endometriosis, unspecified] Onset: 12-04-2024 07-11-2024 Chronic Genitourinary congenital anomalies (1 source) Uterus arcuatus; 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] 09-14-2024 Chronic Genitourinary symptoms and ill-defined conditions (1 source) Female stress incontinence; Translations: [Stress incontinence (female) (male)] 04-14-2024 Chronic Headache; including migraine (15 sources) Migraine; Translations: [Migraine, unspecified, not intractable, without status migrainosus] Onset: 07-11-2024 05-14-2023 Chronic Menstrual disorders (9 sources) Menorrhagia; Translations: [Excessive and frequent menstruation with regular cycle] Onset: 10-31-2024 Chronic Miscellaneous mental health disorders (5 sources) Disturbance in mood; Translations: [ mood disturbance] Episodic Other acquired deformities (2 sources) Lumbar spondylolisthesis; Translations: [Spondylolisthesis, lumbar region] 07-27-2024 Episodic Other bone disease and musculoskeletal deformities (20 sources) Segmental and somatic dysfunction; Translations: [Segmental and somatic dysfunction of cervical region] 10-05-2022 Episodic Other bone disease and musculoskeletal deformities (18 sources) Segmental and somatic dysfunction of lumbar region; Translations: [Nonallopathic lesions, lumbar region] 08-06-2022 Episodic Other bone disease and musculoskeletal deformities (18 sources) Segmental and somatic dysfunction of pelvic region; Translations: [Nonallopathic lesions, pelvic region] 08-06-2022 Episodic Other bone disease and musculoskeletal deformities (15 sources) Segmental and somatic dysfunction of thoracic region; Translations: [Nonallopathic lesions, thoracic region] 08-06-2022 Episodic Other bone disease and musculoskeletal deformities (4 sources) Segmental and somatic dysfunction of cervical region; Translations: [Nonallopathic lesions, cervical region] 10-05-2022 Episodic Other complications of (20 sources) Multigravida of advanced maternal age; Translations: [Supervision of elderly multigravida, unspecified trimester] Onset: 03-10-2018 Resolved: 04-09-2021 05-01-2021 Episodic Other complications of (20 sources) RhD negative; Translations: [Other specified related conditions, unspecified trimester] Onset: 11-19-2015 Resolved: 04-09-2021 05-01-2021 Episodic Other complications of (6 sources) High risk ; Translations: [Supervision of resulting from assisted reproductive technology, unspecified trimester] 05-01-2021 Episodic Other connective tissue disease (2 sources) Bursitis of left foot; Translations: [Other enthesopathy of left foot and ankle] Episodic Other connective tissue disease (3 sources) Pain in axilla; Translations: [Pain in left upper arm] 04-14-2024 Episodic Other connective tissue disease (2 sources) History of lumbar fusion; Translations: [Arthrodesis status] 07-19-2024 Episodic Other eye disorders (1 source) Red left eye; Translations: [Other specified disorders of eye and adnexa] 06-05-2024 Episodic Other female genital disorders (1 source) Premenstrual tension syndrome; 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] 07-11-2024 Chronic Other female genital disorders (2 sources) Abnormal uterine bleeding; Translations: [Abnormal uterine and vaginal bleeding, unspecified] 09-11-2024 Chronic Other female genital disorders (2 sources) Deep pain on intercourse; Translations: [Deep dyspareunia] 10-27-2024 Chronic Other female genital disorders (1 source) Deep dyspareunia; Translations: [Deep dyspareunia] Onset: 12-04-2024 Chronic Other female genital disorders (1 source) Abnormal uterine and vaginal bleeding, unspecified; Translations: [Abnormal uterine bleeding (AUB)] Onset: 09-12-2024 Chronic Other gastrointestinal disorders (4 sources) Spurious diarrhea - overflow; Translations: [Diarrhea, unspecified] 04-06-2025 Episodic Other gastrointestinal disorders (4 sources) Diarrhea; Translations: [Diarrhea, unspecified] 04-06-2025 Episodic Other upper respiratory infections (1 source) Upper respiratory infection; Translations: [Acute upper respiratory infection, unspecified] 10-11-2023 Episodic Ovarian cyst (5 sources) Complex cyst of left ovary; Translations: [Other ovarian cyst, left side] Onset: 12-04-2024 09-14-2024 Episodic Residual codes; unclassified (1 source) Pain; Translations: [Pain, unspecified] Episodic Spondylosis; intervertebral disc disorders; other back problems (2 sources) Degeneration of lumbar intervertebral disc; Translations: [Other intervertebral disc degeneration of lumbar region] 05-05-2024 Chronic Unclassified (1 source) Low back pain, unspecified; Translations: [Low back pain, unspecified] Onset: 12-04-2024 Past or Other Problems Problem Classification Problem Date Documented Da te Episodic/Chronic Bacterial infection; unspecified site (18 sources) Bacteria present; Translations: [Streptococcus, group B, as the cause of diseases classified elsewhere] Onset: 8 Resolved: 8 11-04-2018 Episodic Female infertility (18 sources) Female infertility; Translations: [Female infertility, unspecified] Onset: 5 Resolved: 9 12-01-2018 Chronic Gastrointestinal hemorrhage (18 sources) Gastrointestinal hemorrhage; Translations: [Hemorrhage of anus and rectum] Onset: 7 Resolved: 1 04-09-2021 Episodic Genitourinary symptoms and ill-defined conditions (18 sources) Bacteriuria; Translations: [Bacteriuria] Onset: 0 Resolved: 1 04-09-2021 Episodic Hemorrhage during ; abruptio placenta; placenta previa (18 sources) Placenta previa; Translations: [Complete placenta previa NOS or without hemorrhage, second trimester] Onset: 6 Resolved: 8 07-07-2018 Episodic Hemorrhoids (18 sources) Hemorrhoids without complication; Translations: [Residual hemorrhoidal skin tags] Onset: 7 Resolved: 1 04-09-2021 Episodic Other acquired deformities (1 source) Spondylolisthesis, lumbar region; Translations: [Spondylolisthesis, lumbar region] Onset: 4 Episodic Other complications of (18 sources) Back pain complicating ; Translations: [Back pain affecting ] Onset: 6 Resolved: 8 11-10-2021 Episodic Other complications of (18 sources) Supervision of resulting from assisted reproductive technology, unspecified trimester; Translations: [ resulting from assisted reproductive technology] Onset: 8 Resolved: 9 12-01-2018 Episodic Other connective tissue disease (1 source) Pain in left upper arm; Translations: [Axillary pain, left] Onset: 4 Episodic Other connective tissue disease (1 source) Arthrodesis status; Translations: [Arthrodesis status] Onset: 5 Episodic Other and delivery including normal (18 sources) Normal ; Translations: [Encounter for supervision of normal first , second trimester] Onset: 6 Resolved: 8 04-12-2018 Episodic Other screening for suspected conditions (not mental disorders or infectious disease) (20 sources) Patient encounter status; Translations: [Encounter for screening mammogram for malignant neoplasm of breast] Onset: 5 Resolved: 9 Episodic Polyhydramnios and other problems of amniotic cavity (18 sources) Polyhydramnios; Translations: [Polyhydramnios, third trimester, not applicable or unspecified] Onset: 1 Resolved: 1 04-09-2021 Episodic Residual codes; unclassified (18 sources) Gestation period, 37 weeks; Translations: [37 weeks gestation of ] Onset: 6 Resolved: 8 04-12-2018 Episodic Screening and history of mental health and substance abuse codes (20 sources) H/O: anxiety state; Translations: [Personal history of other mental and behavioral disorders] Onset: 8 Resolved: 1 04-09-2021 Episodic Spondylosis; intervertebral disc disorders; other back problems (20 sources) Lumbar disc prolapse with radiculopathy; Translations: [Intervertebral disc disorders with radiculopathy, lumbar region] Onset: 4 10-05-2022 Episodic Comment on above: L5/S1 Results Test Name Value Interpretation Reference Range Facility Surgery Visit Reporton 04-20 Surgery Visit Report [facility] [address] [place] [address] OFFICE VISIT Date of Service: 04/20/25 MR#: [id number] Acct: [id number] Name: VI VELA Rep #: [id number] : 1980 Provider: Dr. Rajinder sherman MD Age/Sex: 44/F Location: [facility] [place] [facility] Status: Signed Intake Vital Signs 04/16/25 18:10 04/20/25 12:36 Height 5 ft 4 in 5 ft 4 in Weight: 150 lb BMI 25.7 BP 130/81 H Blood Pressure Location Lt brachial Position Sitting Respiration 16 Intake Visit Reasons: ER F/U- GALLBLADDER Chief Complaint: Low back pain Mud Jack Operator Required: No Is patient in pain?: Yes (ruq abd) Allergies morphine Adverse Reaction (Verified 04/20/25 12:37) Itching Medications ???Medication ???Instructions ???Recorded ???Confirmed ???Type cholecalciferol (vitamin D3) 25 25 mcg PO DAILY 04/24/21 04/20/25 History mcg (1,000 unit) chewable tablet (Vitamin D3) citalopram 40 mg tablet 40 mg PO DAILY 04/24/21 04/20/25 H istory bupropion HCl 150 mg 24 hr tablet, 150 mg PO QDAY 05/05/24 04/20/25 History extended release acetaminophen 500 mg tablet 500 mg PO Q6H #30 tabs 07/19/24 Rx drospirenone (contraceptive) 4 mg 1 tab PO QDAY 10/10/24 04/20/25 H istory (28) tablet (Slynd) ondansetron 4 mg disintegrating 4 mg PO Q8H PRN PRN Nausea #10 tab s 04/17/25 04/20/25 Rx tablet Have you fallen in the past year?: No PFSH Medical History COVID Wears hearing aid Loss of hearing Depression Restless legs History of chemical tubal occlusion Wears glasses Wears contact lenses Anxiety Alcohol use Back pain Injury of back Former smoker History of herniated intervertebral disc Stomach ulcer Surgical History History of hysteroscopy History of tonsillectomy and adenoidectomy Hx of laparoscopy History of foot surgery History of delivery Family History Other Alcoholism CVA (cerebral vascular accident) Heart disease Osteoporosis Thyroid disorder Social History Smoking Status: Former smoker alcohol intake: current alcohol intake frequency: holidays/special occasions only substance use type: does not use what type of physical activity do you participate in: yoga frequency: 3-4 times per week HPI HPI HPI: Patient is a 44-year-old female who makes outpatient follow-up after an ER consultation on 04/17/2025. She presents today with her daughter. She states that overall she has done well sticking with a carbohydrate???only diet. She states she had a little chicken the other night which did not result in symptoms, however, she states she had some abdominal pain earlier today that was of a mild intensity just after eating some low-fat cheese. She comes with several questions related to her postoperative recovery. Outside of the above patient acknowledges some diarrhea which is characterized by mucus in her stool. She notes that it is overall better. She states previously she was experience 3-4 bowel movements per day. She confirms a colonoscopy last May given a family history of colon cancer (paternal grandmother diagnosed in their 80s) but also reports that she did not have any stool changes at that time. She does know she was diagnosed with a polyp at that colonoscopy. Patient states that her brother is a general surgeon in [place] and had wondered about some of her workup. ROS General General: No weight change, appetite, fatigue, colon cancer, breast cancer or weakness HEENT HEENT: No difficulty swallowing, eye injury, eye surgery, swollen glands or hoarseness Endo Endocrine: No thyroid disease, diabetes mellitus, thyroid cancer, Hair loss, heat intolerance or cold intolerance Skin Skin: No rash or changing moles Breast Breast: No left breast lump, right breast lump, nipple discharge, breast pain, abnormal mammogram, abnormal US or breast enlargement Musc Musculoskeletal: Yes back problems; No arthritis, rheumatoid arthritis, gout or joint pain Cardio Cardiovascular: No murmur, pacemaker, heart disease, atrial fibrillation, high blood pressure, heart attack, heart stent, palpitations, shortness of breath with exertion or chest pain Psych Psychiatric: Yes anxiety; No depression or hearing voices Resp Respiratory: No shortness of breath, No sleep apnea, No cough, No COPD, No asthma, No emphysema and No wheezing Gastro Gastrointestinal: Yes abdominal pain, Yes nausea or vomiting, Yes diarrhea, No constipation, No blood in stool, No acid reflux, No hemorrhoids, Yes ulcers, Yes gallbladder problem and No black,tarry (more content not included)... Normal [facility] Absolute lymphocyte countOrd ered By: ED PROVIDER on 04-16-2025 Lymphocytes Auto (Unsp spec) [#/Vol] 2.42 10*3/uL 0.83-4.51 [facility] Absolute neutrophil countOrd ered By: ED PROVIDER on 04-16-2025 Neutrophils (Bld) [#/Vol] 4.6 10*3/uL 2.0-7.7 [facility] Anion gap in Serum or Plasma Ordered By: ED PROVIDER on 04-16-2025 Anion gap [Moles/Vol] 12 mmol/L 5-15 [facility] Automated lymphocyte count a s percentage of total leukocytesOrdered By: ED PROVIDER on 04-16-2025 Lymphocytes/100 WBC Auto (Unsp spec) 30.6 % 19-41 [facility] BUN/creatinine ratioOrdered By: ED PROVIDER on 04-16-2025 Urea nitrogen/Creatinine [Mass ratio] 14.0 mg/mg 10-20 [facility] Basophil percentageOrdered B y: ED PROVIDER on 04-16-2025 Basophils/100 WBC (Bld) 0.6 % 0-1 [facility] Bilirubin Test strip Ql (U)O rdered By: ED PROVIDER on 04-16-2025 Bilirubin Ql (U) Negative Negative [facility] Bilirubin, totalOrdered By: ED PROVIDER on 04-16-2025 Bilirubin [Mass/Vol] 0.31 mg/dL 0.00-1.30 [facility] CBC W/Diff, Automatedon Absolute Lymph 2.42 X10 3/uL Normal 0.83-4.51 [facility] Comment on above: Performed By: #### L 700.6800, L500.4050, L501.2450, L100.0100 ####[facility] [address] [place], [address] Absolute Neut 4.6 X10 3/uL Normal 2.0-7.7 [facility] Comment on above: Performed By: #### L 700.6800, L500.4050, L501.2450, L100.0100 ####[facility] [address] [place], [address] Basophils/100 WBC (Bld) 0.6 % Normal 0-1 [facility] Comment on above: Performed By: #### L 700.6800, L500.4050, L501.2450, L100.0100 ####[facility] [address] [place], [address] Eosinophils/100 WBC (Bld) 1.8 % Normal 0-5 [facility] Comment on above: Performed By: #### L 700.6800, L500.4050, L501.2450, L100.0100 ####[facility] [address] [place], [address] Erythrocyte distribution width (RBC) [Ratio] 12.3 % Normal 11.6-14.6 [facility] Comment on above: Performed By: #### L 700.6800, L500.4050, L501.2450, L100.0100 ####[facility] [address] [place], [address] Hematocrit (Bld) [Volume fraction] 39.8 % Normal 37-47 [facility] Comment on above: Performed By: #### L 700.6800, L500.4050, L501.2450, L100.0100 ####[facility] [address] [place], [address] Hemoglobin (Bld) [Mass/Vol] 12.9 g/dL Normal 12.0-15.0 [facility] Comment on above: Performed By: #### L 700.6800, L500.4050, L501.2450, L100.0100 ####[facility] [address] [place], [address] IG% 0.300 Normal 0.0-0.9 [facility] Comment on above: Result Comment: IG% - Immature Granulocytes (promyelocytes, myelocytes and metamyelocytes) > 1% indicates that a LEFT SHIFT is Present. Performed By: #### L 700.6800, L500.4050, L501.2450, L100.0100 ####[facility] [address] [place], [address] Lymphocytes/100 WBC (Bld) 30.6 % Normal 19-41 [facility] Comment on above: Performed By: #### L 700.6800, L500.4050, L501.2450, L100.0100 ####[facility] [address] [place], [address] MCH (RBC) [Entitic mass] 28.9 pg Normal 27.0-32.0 [facility] Comment on above: Performed By: #### L 700.6800, L500.4050, L501.2450, L100.0100 ####[facility] [address] [place], [address] MCHC (RBC) [Mass/Vol] 32.4 g/dL Normal 32-36 [facility] Comment on above: Performed By: #### L 700.6800, L500.4050, L501.2450, L100.0100 ####[facility] [address] [place], [address] MCV (RBC) [Entitic vol] 89.2 fL Normal 81-99 [facility] Comment on above: Performed By: #### L 700.6800, L500.4050, L501.2450, L100.0100 ####[facility] [address] [place], [address] Monocytes/100 WBC (Bld) 8.3 % Normal 0-10 [facility] Comment on above: Performed By: #### L 700.6800, L500.4050, L501.2450, L100.0100 ####[facility] [address] [place], [address] Neutrophils/100 WBC (Bld) 58.4 % Normal 47-70 [facility] Comment on above: Performed By: #### L 700.6800, L500.4050, L501.2450, L100.0100 ####[facility] [address] [place], [address] Nucleated RBC (Bld) [#/Vol] 0 10*3/uL Normal 0-5 [facility] Comment on above: Performed By: #### L 700.6800, L500.4050, L501.2450, L100.0100 ####[facility] [address] [place], [address] Platelet mean volume (Bld) [Entitic vol] 10.7 fL Normal 6.2-12.0 [facility] Comment on above: Performed By: #### L 700.6800, L500.4050, L501.2450, L100.0100 ####[facility] [address] [place], [address] Platelets (Bld) [#/Vol] 267 10*3/uL Normal 150-450 [facility] Comment on above: Performed By: #### L 700.6800, L500.4050, L501.2450, L100.0100 ####[facility] [address] [place], [address] RBC (Bld) [#/Vol] 4.46 10*6/uL Normal 4.2-5.4 [facility] Comment on above: Performed By: #### L 700.6800, L500.4050, L501.2450, L100.0100 ####[facility] [address] [place], [address] RDW SD 39.9 fl Normal 35.1-43.9 [facility] Comment on above: Performed By: #### L 700.6800, L500.4050, L501.2450, L100.0100 ####[facility] [address] [place], [address] WBC (Bld) [#/Vol] 7.9 10*3/uL Normal 4.4-11.0 [facility] Comment on above: Performed By: #### L 700.6800, L500.4050, L501.2450, L100.0100 ####[facility] [address] [place], [address] Carbon dioxide, total [Moles /volume] in Central venous bloodOrdered By: ED PROVIDER on 04-16-2025 CO2 [Moles/Vol] 22.8 mmol/L 21.0-32.0 [facility] Chloride assayOrdered By: ED PROVIDER on 04-16-2025 Chloride [Moles/Vol] 105 mmol/L 98-108 [facility] Comprehensive Metabolic Prof ilon 04-16-2025 Albumin [Mass/Vol] 4.7 g/dL Normal 3.5-5.0 [facility] Comment on above: Performed By: #### L 700.6800, L500.4050, L501.2450, L100.0100 ####[facility] [address] [place], [address] Albumin/Globulin [Mass ratio] 1.5 {ratio} Normal 0.9-2.4 [facility] Comment on above: Performed By: #### L 700.6800, L500.4050, L501.2450, L100.0100 ####[facility] [address] [place], [address] ALK PHOS 97 U/L Normal 35-104 [facility] Comment on above: Performed By: #### L 700.6800, L500.4050, L501.2450, L100.0100 ####[facility] [address] [place], [address] ALT [Catalytic activity/Vol] 12 U/L Normal <=34 [facility] Comment on above: Performed By: #### L 700.6800, L500.4050, L501.2450, L100.0100 ####[facility] [address] [place], [address] AST [Catalytic activity/Vol] 23 U/L Normal <=31 [facility] Comment on above: Performed By: #### L 700.6800, L500.4050, L501.2450, L100.0100 ####[facility] [address] [place], [address] Bilirubin [Mass/Vol] 0.31 mg/dL Normal 0.00-1.30 [facility] Comment on above: Performed By: #### L 700.6800, L500.4050, L501.2450, L100.0100 ####[facility] [address] [place], [address] BUN/CRE 14.0 RATIO Normal 10-20 [facility] Comment on above: Performed By: #### L 700.6800, L500.4050, L501.2450, L100.0100 ####[facility] [address] [place], [address] Calcium [Mass/Vol] 9.4 mg/dL Normal 7.6-11.0 [facility] Comment on above: Performed By: #### L 700.6800, L500.4050, L501.2450, L100.0100 ####[facility] [address] [place], [address] Chloride [Moles/Vol] 105 mmol/L Normal 98-108 [facility] Comment on above: Performed By: #### L 700.6800, L500.4050, L501.2450, L100.0100 ####[facility] [address] [place], [address] CO2 [Moles/Vol] 22.8 mmol/L Normal 21.0-32.0 [facility] Comment on above: Performed By: #### L 700.6800, L500.4050, L501.2450, L100.0100 ####[facility] [address] [place], [address] Creatinine [Mass/Vol] 0.93 mg/dL Normal 0.70-1.20 [facility] Comment on above: Performed By: #### L 700.6800, L500.4050, L501.2450, L100.0100 ####[facility] [address] [place], [address] ECRCL 75.00 ml/min Normal 50-250 [facility] Comment on above: Performed By: #### L 700.6800, L500.4050, L501.2450, L100.0100 ####[facility] [address] [place], [address] GAP 12 Normal 5-15 [facility] Comment on above: Performed By: #### L 700.6800, L500.4050, L501.2450, L100.0100 ####[facility] [address] [place], [address] GFR/1.73 sq M.predicted among non-blacks MDRD (S/P/Bld) [Vol rate/Area] 78 mL/min/{1.73_m2} Normal >60 [facility] Comment on above: Result Comment: mL/m in/1.73m2 CKD-EPI Creatinine Equation (2020) Performed By: #### L 700.6800, L500.4050, L501.2450, L100.0100 ####[facility] [address] [place], [address] Globulin (S) [Mass/Vol] 3.2 g/dL Normal 2.2-4.2 [facility] Comment on above: Performed By: #### L 700.6800, L500.4050, L501.2450, L100.0100 ####[facility] [address] [place], [address] Glucose [Mass/Vol] 92 mg/dL Normal 70-99 [facility] Comment on above: Performed By: #### L 700.6800, L500.4050, L501.2450, L100.0100 ####[facility] [address] [place], [address] Potassium [Moles/Vol] 4.1 mmol/L Normal 3.3-5.1 [facility] Comment on above: Performed By: #### L 700.6800, L500.4050, L501.2450, L100.0100 ####[facility] [address] [place], [address] Sodium [Moles/Vol] 139 mmol/L Normal 133-145 [facility] Comment on above: Performed By: #### L 700.6800, L500.4050, L501.2450, L100.0100 ####[facility] [address] [place], [address] T PROT 7.9 g/dL Normal 5.9-8.4 [facility] Comment on above: Performed By: #### L 700.6800, L500.4050, L501.2450, L100.0100 ####[facility] [address] [place], [address] Urea nitrogen [Mass/Vol] 13 mg/dL Normal 4-19 [facility] Comment on above: Performed By: #### L 700.6800, L500.4050, L501.2450, L100.0100 ####[facility] [address] [place], [address] Emergency Department Summary on 04-16-2025 Emergency Department Summary [facility] Medical Records Department [address] [place] [address] Emergency Department Summary 04/16/25 MR#: [id number] Acct: [id number] Name: IV VELA Rep #: [id number] : 1980 44 From: Kaiser Bean DO PCP: ALDO Scruggs Status:REG ER Location: ED HPI History of Present Illness Chief Complaint: Abd Pain PFSH [facility] Medical History COVID Wears hearing aid Loss of hearing Depression Restless legs History of chemical tubal occlusion Wears glasses Wears contact lenses Anxiety Alcohol use Back pain Injury of back Former smoker History of herniated intervertebral disc Stomach ulcer Home Medications ???Medication ???Instructions ???Recorded ???Last Taken ???Type cholecalciferol (vitamin D3) 25 25 mcg PO DAILY 04/24/21 07/17/24 History mcg (1,000 unit) chewable tablet (Vitamin D3) citalopram 40 mg tablet 40 mg PO DAILY 04/24/21 07/17/24 H istory bupropion HCl 150 mg 24 hr tablet, 150 mg PO QDAY 05/05/24 07/17/24 History extended release acetaminophen 500 mg tablet 500 mg PO Q6H #30 tabs 07/19/24 Un known Rx drospirenone (contraceptive) 4 mg 1 tab PO QDAY 10/10/24 Unknown Hi story (28) tablet (Slynd) Allergy/AdvReac Type Severity Reaction Status Date / Time morphine AdvReac Itching Verified 04/16/25 18:12 Family History Other Alcoholism CVA (cerebral vascular accident) Heart disease Osteoporosis Thyroid disorder Surgical History History of hysteroscopy History of tonsillectomy and adenoidectomy Hx of laparoscopy History of foot surgery History of delivery Social History Smoking Status: Former smoker alcohol intake: current alcohol intake frequency: holidays/special occasions only substance use type: does not use what type of physical activity do you participate in: yoga frequency: 3-4 times per week EXAM Physical Exam Const Vital Signs: 04/16/25 18:10 04/16/25 21:50 04/16/25 22:21 Temperature 98.1 F 98.1 F 98 F Temperature Source Oral Temporal Temporal Pulse Rate 80 78 80 Respiratory Rate 19 H 16 16 Blood Pressure 137/78 H 127/84 H 124/80 H Blood Pressure Mean 97 98 94 Pulse Ox 98 98 99 Oxygen Delivery Method Room Air Room Air 04/17/25 00:21 Temperature 98.1 F Temperature Source Temporal Pulse Rate 74 Respiratory Rate 16 Blood Pressure 123/77 H Blood Pressure Mean 92 Pulse Ox 98 Oxygen Delivery Method MDM MDM MDM Narrative Medical decision making narrative: HISTORY OF PRESENT ILLNESS: Chief complaint: Abdominal pain, nausea vomit 42-year-old female history of gallstones presents with abdominal pain nausea vomiting. She notes this began late last night. Improved somewhat but still nauseous. Notes history of laparoscopy and hysteroscopy. Denies blood in her vomit. Denies trouble urinating. Denies constipation. REVIEW OF SYSTEMS: Pertinent positives: Abdominal pain, nausea vomiting Pertinent negatives: As per HPI PHYSICAL EXAM: Nursing triage notes reviewed, Vital signs reviewed Constitutional: please see mdm HENT: MMM Eyes: Pupils equal round and reactive to light, Extraocular muscles intact Neck: No stridor, no JVD, full neck ROM Lungs: Clear to auscultation, No wheezing or rales. No increased work of breathing, no conversational dyspnea, no accessory muscle use, no nasal flaring. No respiratory distress noted Heart: Regular rate and rhythm, No murmurs, No rubs and No gallops, 2+ distal pulses (radial, femoral, posterior tibial) in all extremities Abdomen: Positive Ennis sign, right upper quadrant TTP : No CVAT Extremities: No edema Neuro: No new focal neurological deficits, cranial nerves II through XII intact, 5/5 strength in all present extremities. Intact sensation to light touch in all present extremities, 2+ reflexes bilateral patella tendons. Skin: No rash or lesions noted MEDICAL DECISION MAKING: Chief Complaint: please see HPI External records reviewed: Reviewed prior imaging studies: Reviewed right required ultrasound from April 12, 2025 (4 days ago) showed 1 cm gallstone of the neck of the gallbladder, no gallbladder wall thickening, pericholecystic fluid, negative Ennis sign. Read was cholelithiasis without acute cholecystitis Factors affecting care: gallstone Social determinants of health: Denies alcohol History obtained from others: none Consults: General Surgery (Dr. Gold) -recommended against acute surgical invention. MDM Narrative: The patient was initially hemodynamically (more content not included)... Normal [facility] Eosinophil percentageOrdered By: ED PROVIDER on 04-16-2025 Eosinophils/100 WBC (Bld) 1.8 % 0-5 [facility] Erythrocyte distribution wid th ratioOrdered By: ED PROVIDER on 04-16-2025 Erythrocyte distribution width (RBC) [Ratio] 12.3 % 11.6-14.6 [facility] Erythrocyte distribution wid th standard deviationOrdered By: ED PROVIDER on 04-16-2025 Erythrocyte distribution width (RBC) [Ratio] 39.9 fl 35.1-43.9 [facility] Gallbladderon 04-16-2025 Gallbladder [facility] Services [address] [place] [address] Gallbladder MR#: [id number] Acct: [id number] Name: VI VELA Rep #: [id number] : 1980 F 44 From: Jerald Veras MD PCP: ALDO Scruggs Status: REG ER Study: Gallbladder Date of Exam: 04/16/25 Exam# [id number] Ordering Dr: Kaiser Bean DO PROCEDURE: GALLBLADDER 04/16/2025 REASON FOR EXAM: RUQ US COMPARISON: Abdominal ultrasound 04/12/2025 FINDINGS: Liver: Normal length of 14.2 cm. Echogenicity is mildly increased relative to the right kidney. Hepatopetal portal venous flow. Gallbladder: Echogenic shadowing gallstone at the neck. Gallbladder measures 5.8 cm in length. Normal wall thickness of 0.2 cm. No pericholecystic fluid. Sonographic Ennis's sign is positive per technologist report. Common bile duct: Normal measuring 6 mm. Pancreas: Visualized portions are unremarkable. The distal body and tail are obscured by bowel gas. Other: Visualized portions of the right kidney are unremarkable. No right upper quadrant ascites. US/Gallbladder IMPRESSION: 1. Cholelithiasis with positive sonographic Ennis's sign, equivocal for acute cholecystitis in the setting of normal wall thickness and no pericholecystic fluid. Consider Surgical consultation if clinical concern persists. 2. Findings suggestive of mild hepatic steatosis. Reading Location: [facility] CC: ALDO Mann; Dr. Kaiser Bean DO Operations Engineer: Signed Normal [facility] Glomerular filtration rate ( GFR) estimation/1.73 sq m using serum, plasma, or whole bOrdered By: ED PROVIDER on 04-16-2025 GFR/1.73 sq M.predicted among non-blacks MDRD (S/P/Bld) [Vol rate/Area] 78 mL/min/{1.73_m2} >60 [facility] Comment on above: mL/min/1.73m2 CKD-EP I Creatinine Equation (2020) Hematocrit Auto (Bld) [Volum e fraction]Ordered By: ED PROVIDER on 04-16-2025 Hematocrit (Bld) [Volume fraction] 39.8 % 37-47 [facility] Hemoglobin measurementOrdere d By: ED PROVIDER on 04-16-2025 Hemoglobin (Bld) [Mass/Vol] 12.9 g/dL 12.0-15.0 [facility] Immature granulocytes/100 WB C Auto (Bld)Ordered By: ED PROVIDER on 04-16-2025 Immature granulocytes/100 WBC (Bld) 0.300 % 0.0-0.9 [facility] Comment on above: IG% - Immature Granu locytes (promyelocytes, myelocytes and metamyelocytes) > 1% indicates that a LEFT SHIFT is Present. Ketones Test strip Ql (U)Ord ered By: ED PROVIDER on 04-16-2025 Ketones Ql (U) 50 mg/dl High Negative [facility] Laboratory - Chemistry and C hemistry - challengeOrdered By: ED PROVIDER on 04-16-2025 AST [Catalytic activity/Vol] 23 U/L <32 [facility] Lipaseon 04-16-2025 Lipase [Catalytic activity/Vol] 39 U/L Normal 13-75 [facility] Comment on above: Result Comment: Plea se note: LIPASE revised reference range effective 23. New Lipase methodology. Expected to produce lower values than the previous assay method. NEW Reference Range: 13 - 75 U/L Performed By: #### L 700.6800, L500.4050, L501.2450, L100.0100 ####[facility] [id number] [place], [address] Lipase measurementOrdered By : ED PROVIDER on 04-16-2025 Lipase [Catalytic activity/Vol] 39 U/L 13-75 [facility] Comment on above: Please note:LIPASE r evised reference range effective 23. New Lipase methodology. Expected to produce lower values than the previous assay method. NEW Reference Range: 13 - 75 U/L MCV (mean corpuscular volume ) determinationOrdered By: ED PROVIDER on 04-16-2025 MCV (RBC) [Entitic vol] 89.2 fL 81-99 [facility] Mean corpuscular hemoglobin (MCH) determinationOrdered By: ED PROVIDER on 04-16-2025 MCH (RBC) [Entitic mass] 28.9 pg 27.0-32.0 [facility] Mean corpuscular hemoglobin concentration (MCHC) determinationOrdered By: ED PROVIDER on 04-16-2025 MCHC (RBC) [Mass/Vol] 32.4 g/dL 32-36 [facility] Mean platelet volume determi nationOrdered By: ED PROVIDER on 04-16-2025 Platelet mean volume (Bld) [Entitic vol] 10.7 fL 6.2-12.0 [facility] Microscopic analysis of urin e for red blood cells (RBC)Ordered By: ED PROVIDER on 04-16-2025 Microscopic analysis of urine for red blood cells (RBC) 0-5 SEEN /hpf 0-5 [facility] Monocyte percentageOrdered B y: ED PROVIDER on 04-16-2025 Monocytes/100 WBC (Bld) 8.3 % 0-10 [facility] Mucus LM Ql (Urine sed)Order ed By: ED PROVIDER on 04-16-2025 Mucus Ql (Urine sed) 0 SEEN /hpf [facility] Neutrophil percentageOrdered By: ED PROVIDER on 04-16-2025 Neutrophils/100 WBC (Bld) 58.4 % 47-70 [facility] Nitrite Test strip Ql (U)Ord ered By: ED PROVIDER on 04-16-2025 Nitrite Ql (U) Negative Negative [facility] Nucleated red blood cell per centageOrdered By: ED PROVIDER on 04-16-2025 Nucleated RBC/100 WBC (Bld) [Ratio] 0 % 0-5 [facility] Platelet countOrdered By: ED PROVIDER on 04-16-2025 Platelets (Bld) [#/Vol] 267 10*3/uL 150-450 [facility] Potassium measurement (mass/ volume)Ordered By: ED PROVIDER on 04-16-2025 Potassium (Unsp spec) [Mass/Vol] 4.1 mmol/L 3.3-5.1 [facility] ,Serum,hCG Quali.on 04-16-2025 HCG, SERUM QUAL Negative Normal [facility] Comment on above: Performed By: #### L 700.6800, L500.4050, L501.2450, L100.0100 ####[facility] [id number] [place], [address] Protein Test strip Ql (U)Ord ered By: ED PROVIDER on 04-16-2025 Protein Ql (U) 30 mg/dl High Negative [facility] RBC Auto (Bld) [#/Vol]Ordere d By: ED PROVIDER on 04-16-2025 RBC (Bld) [#/Vol] 4.46 10*6/uL 4.2-5.4 [facility] Serum beta-hCG test, qualita tiveOrdered By: ED PROVIDER on 04-16-2025 Beta HCG ( test) Ql Negative [facility] Serum creatinine measurement (mass/volume)Ordered By: ED PROVIDER on 04-16-2025 Creatinine [Mass/Vol] 0.93 mg/dL 0.70-1.20 [facility] Serum globulin measurementOr dered By: ED PROVIDER on 04-16-2025 Globulin (S) [Mass/Vol] 3.2 g/dL 2.2-4.2 [facility] Serum glucose measurement (m ass/volume)Ordered By: ED PROVIDER on 04-16-2025 Glucose [Mass/Vol] 92 mg/dL 70-99 [facility] Serum or plasma alanine newton otransferase (ALT) measurementOrdered By: ED PROVIDER on 04-16-2025 ALT [Catalytic activity/Vol] 12 U/L <35 [facility] Serum or plasma albumin willy urement (mass/volume)Ordered By: ED PROVIDER on 04-16-2025 Albumin [Mass/Vol] 4.7 g/dL 3.5-5.0 [facility] Serum or plasma albumin/glob ulin mass ratioOrdered By: ED PROVIDER on 04-16-2025 Albumin/Globulin [Mass ratio] 1.5 {ratio} 0.9-2.4 [facility] Serum or plasma alkaline yanna sphatase measurementOrdered By: ED PROVIDER on 04-16-2025 ALP [Catalytic activity/Vol] 97 U/L 35-104 [facility] Serum or plasma calcium willy urement (mass/volume)Ordered By: ED PROVIDER on 04-16-2025 Calcium [Mass/Vol] 9.4 mg/dL 7.6-11.0 [facility] Serum or plasma urea nitroge n measurement (mass/volume)Ordered By: ED PROVIDER on 04-16-2025 Urea nitrogen [Mass/Vol] 13 mg/dL 4-19 [facility] Sodium levelOrdered By: NAZARIO DILLON on 04-16-2025 Sodium [Moles/Vol] 139 mmol/L 133-145 [facility] Squamous epithelial cells de tection in urine sediment by light microscopyOrdered By: ED PROVIDER on 04-16-2025 Epithelial cells.squamous LM Ql (Urine sed) 0-5 SEEN /hpf 5-10 [facility] Total proteinOrdered By: ED PROVIDER on 04-16-2025 Protein [Mass/Vol] 7.9 g/dL 5.9-8.4 [facility] Urinalysis, Completeon 04-16 EPI,SQUAMOUS 0-5 SEEN Normal 5-10 [facility] Comment on above: Order Comment: CLEAN CATCH Performed By: #### L 400.0001 #### [facility] [address] [place], [address] RBC 0-5 SEEN Normal 0-5 [facility] Comment on above: Order Comment: CLEAN CATCH Performed By: #### L 400.0001 #### [facility] [address] [place], [address] WBC 0-5 SEEN Normal 0-5 [facility] Comment on above: Order Comment: CLEAN CATCH Performed By: #### L 400.0001 #### [facility] [address] [place], [address] BACTERIA 0 SEEN Normal None Seen [facility] Comment on above: Order Comment: CLEAN CATCH Performed By: #### L 400.0001 #### [facility] [address] [place], [address] Mucus Ql (Urine sed) 0 SEEN Normal [facility] Comment on above: Order Comment: CLEAN CATCH Performed By: #### L 400.0001 #### [facility] [address] [place], [address] Urine clarityOrdered By: ED PROVIDER on 04-16-2025 Clarity (U) Clear Clear [facility] Urine color determinationOrd ered By: ED PROVIDER on 04-16-2025 Color (U) Yellow Yellow [facility] Urine glucose detectionOrder ed By: ED PROVIDER on 04-16-2025 Glucose Ql (U) Normal mg/dl Normal [facility] Urine leukocyte esterase det ection by dipstickOrdered By: ED PROVIDER on 04-16-2025 Leukocyte esterase Test strip Ql (U) 25 /ul High Negative [facility] Urine pHOrdered By: ED PROVI AMY on 04-16-2025 pH (U) 6.0 [pH] 5.0 - 8.0 [facility] Urine sediment bacteria coun t by microscopy (number/high power field)Ordered By: ED PROVIDER on 04-16-2025 Bacteria LM.HPF (Urine sed) [#/Area] 0 /[HPF] None Seen [facility] Urine specific gravity measu rementOrdered By: ED PROVIDER on 04-16-2025 Specific gravity (U) [Rel density] 1.020 1.002-1.030 [facility] Urine urobilinogen measureme ntOrdered By: ED PROVIDER on 04-16-2025 Urobilinogen Ql (U) Normal mg/dl Normal [facility] White blood cell (WBC) count Ordered By: ED PROVIDER on 04-16-2025 WBC (Bld) [#/Vol] 7.9 10*3/uL 4.4-11.0 [facility] White blood cell countOrdere d By: ED PROVIDER on 04-16-2025 White blood cell count 0-5 SEEN /hpf 0-5 [facility] Gallbladderon 04-12-2025 Gallbladder [facility] [address] [place] [address] Gallbladder MR#: [id number] Acct: [id number] Name: VI VELA Rep #: [id number] : 1980 F 44 From: Bruno Pride PCP: ALDO Scruggs Status: REG CLI Study: Gallbladder Date of Exam: 04/12/25 Exam# [id number] Ordering Dr: Park Walters PROCEDURE: GALLBLADDER 04/12/2025 REASON FOR EXAM: RUQ PAIN, NAUSEA COMPARISON: CT from 03/16/2025 FINDINGS: Liver: Measures 13.3 cm. Normal echogenicity. Gallbladder: 1 cm gallstone noted at the neck of the gallbladder. No gallbladder wall thickening. No pericholecystic fluid. Negative Ennis's sign. Common bile duct: Measures 6 mm. No intrahepatic biliary dilatation . Pancreas: Unremarkable Other: Right kidney is normal in size and normal in echogenicity. US/Gallbladder IMPRESSION: Cholelithiasis without acute cholecystitis. Reading Location: [id number] CC: ALDO Walters; ALDO Mann Operations Engineer: Signed Normal [facility] Gastroenterology Visit Repor ton 04-06-2025 Gastroenterology Visit Report [facility] [address] [place] [address] OFFICE VISIT Date of Service: 04/06/25 MR#: [id number] Acct: [id number] Name: VI VELA Rep #: [id number] : 1980 Provider: ALDO kauffman Age/Sex: 44/F Location: [facility] [place] Status: Signed Intake Vital Signs 03/15/25 22:58 Height 5 ft 4 in Intake Visit Reasons: gallbladder-family hx colon cancer Allergies morphine Adverse Reaction (Verified 04/06/25 13:32) Itching Medications ???Medication ???Instructions ???Recorded ???Confirmed ???Type cholecalciferol (vitamin D3) 25 25 mcg PO DAILY 04/24/21 04/06/25 History mcg (1,000 unit) chewable tablet (Vitamin D3) citalopram 40 mg tablet 40 mg PO DAILY 04/24/21 04/06/25 H istory bupropion HCl 150 mg 24 hr tablet, 150 mg PO QDAY 05/05/24 04/06/25 History extended release acetaminophen 500 mg tablet 500 mg PO Q6H #30 tabs 07/19/24 Rx drospirenone (contraceptive) 4 mg 1 tab PO QDAY 10/10/24 04/06/25 H istory (28) tablet (Slynd) PFSH Medical History COVID Wears hearing aid Loss of hearing Depression Restless legs History of chemical tubal occlusion Wears glasses Wears contact lenses Anxiety Alcohol use Back pain Injury of back Former smoker History of herniated intervertebral disc Stomach ulcer Surgical History History of hysteroscopy History of tonsillectomy and adenoidectomy Hx of laparoscopy History of foot surgery History of delivery Family History Other Alcoholism CVA (cerebral vascular accident) Heart disease Osteoporosis Thyroid disorder Social History Smoking Status: Former smoker alcohol intake: current alcohol intake frequency: holidays/special occasions only substance use type: does not use what type of physical activity do you participate in: yoga frequency: 3-4 times per week HPI HPI Details: VI VELA, is a 44 F who presents to the office today for establishment with [place] following [facility] ER visit on 03.15.25 with abdominal pain. She is concerned she has gallbladder issues as she has switched to leaner meats, limits fat and fried foods consumption which has relieved her of the RUQ abdominal pain. She did state the pain was worse than natural child , very sharp stabbing over epigastrium radiating to right rib border and caused nausea. CBC/diff and Chemistries unremarkable. LFTs were normal other than a minimally elevated alkaline phosphatase of 106. Lipase was normal at 60. Urinalysis was normal. Lactate normal 1.5. CT scan of the abdomen pelvis showed no acute abdominal process other than significant stool burden of the colon. She reports that her bowel pattern is changing to be on the looser side with increase in frequency and a lot of mucus present. She denies straining with BM, hematochezia and melena. She reports that her normal BM pattern has been daily to every other day. She denies fever and chills, exposure to ill persons, and change in water source. No travel out of the country. ROS Const Constitutional: No chills, fatigue, fever(s) or weight change Eyes Eyes: No change in vision ENT ENT: No abnormal hearing or difficulty swallowing Resp Respiratory: No cough Cardio Cardiology: No chest pain at rest, chest pain with exertion or leg pain with exertion Gastro GI: Positive for bloating, change in bowel habits, diarrhea, excessive flatus and nausea/dyspepsia; No abdominal pain, belching, change in stool character, coffee ground emesis, constipation, cramping, heartburn, difficulty swallowing, feeling full early, incontinent of stools, Vomiting blood/hematemesis, Blood in stool, loose stools, Black,tarry stools, pain with swallowing, vomiting or other Musc Musculoskeletal: Positive for back pain; No joint pain or leg pain with exertion Skin Skin: No yellowing of the eye or itchy eyes Neuro Neurology: No abnormal hearing Psych Psychiatric: Positive for anxiety and No depression Endo Endocrine: No cold intolerance, fatigue, heat intolerance or weight change Aller/Imm Allergy/Immunologic: No food intolerance or itchy eyes Martin/Lymp Hematologic/Lymphatic : No easy bleeding or easy bruising Exam Const General: cooperative, healthy appearing, comfortable and well groomed Nutritional Appearance: average body habitus Orientation: alert and oriented x3 HENMT Head: normal to inspection Ears: hearing grossly normal bilaterally Eyes General: appearance normal, both eyes and all related structures Sclera: sclerae normal Neck Neck: normal visual insp (more content not included)... Normal [facility] CBC W/Diff, Automatedon 05-0 2-2024 Absolute Lymph 3.46 X10 3/uL Normal 0.83-4.51 [facility] Comment on above: Performed By: #### L 500.4050, L100.0100, L503.6005, L501.2450 #### [facility] [address] [place], [address] Absolute Neut 4.0 X10 3/uL Normal 2.0-7.7 [facility] Comment on above: Performed By: #### L 500.4050, L100.0100, L503.6005, L501.2450 #### [facility] [address] [place], [address] Basophils/100 WBC (Bld) 0.7 % Normal 0-1 [facility] Comment on above: Performed By: #### L 500.4050, L100.0100, L503.6005, L501.2450 #### [facility] [address] [place], [address] Eosinophils/100 WBC (Bld) 1.8 % Normal 0-5 [facility] Comment on above: Performed By: #### L 500.4050, L100.0100, L503.6005, L501.2450 #### [facility] [address] [place], [address] Erythrocyte distribution width (RBC) [Ratio] 12.0 % Normal 11.6-14.6 [facility] Comment on above: Performed By: #### L 500.4050, L100.0100, L503.6005, L501.2450 #### [facility] [address] [place], [address] Hematocrit (Bld) [Volume fraction] 36.2 % Low 37-47 [facility] Comment on above: Performed By: #### L 500.4050, L100.0100, L503.6005, L501.2450 #### [facility] [address] [place], [address] Hemoglobin (Bld) [Mass/Vol] 12.2 g/dL Normal 12.0-15.0 [facility] Comment on above: Performed By: #### L 500.4050, L100.0100, L503.6005, L501.2450 #### [facility] [address] [place], [address] IG% 0.300 Normal 0.0-0.9 [facility] Comment on above: Result Comment: IG% - Immature Granulocytes (promyelocytes, myelocytes and metamyelocytes) > 1% indicates that a LEFT SHIFT is Present. Performed By: #### L 500.4050, L100.0100, L503.6005, L501.2450 #### [facility] [address] [place], [address] Lymphocytes/100 WBC (Bld) 40.0 % Normal 19-41 [facility] Comment on above: Performed By: #### L 500.4050, L100.0100, L503.6005, L501.2450 #### [facility] [address] [place], [address] MCH (RBC) [Entitic mass] 29.5 pg Normal 27.0-32.0 [facility] Comment on above: Performed By: #### L 500.4050, L100.0100, L503.6005, L501.2450 #### [facility] [address] [place], [address] MCHC (RBC) [Mass/Vol] 33.7 g/dL Normal 32-36 [facility] Comment on above: Performed By: #### L 500.4050, L100.0100, L503.6005, L501.2450 #### [facility] [address] [place], [address] MCV (RBC) [Entitic vol] 87.4 fL Normal 81-99 [facility] Comment on above: Performed By: #### L 500.4050, L100.0100, L503.6005, L501.2450 #### [facility] [address] [place], [address] Monocytes/100 WBC (Bld) 10.5 % High 0-10 [facility] Comment on above: Performed By: #### L 500.4050, L100.0100, L503.6005, L501.2450 #### [facility] [address] [place], [address] Neutrophils/100 WBC (Bld) 46.7 % Low 47-70 [facility] Comment on above: Performed By: #### L 500.4050, L100.0100, L503.6005, L501.2450 #### [facility] [address] [place], [address] Nucleated RBC (Bld) [#/Vol] 0 10*3/uL Normal 0-5 [facility] Comment on above: Performed By: #### L 500.4050, L100.0100, L503.6005, L501.2450 #### [facility] [address] [place], [address] Platelet mean volume (Bld) [Entitic vol] 10.4 fL Normal 6.2-12.0 [facility] Comment on above: Performed By: #### L 500.4050, L100.0100, L503.6005, L501.2450 #### [facility] [address] [place], [address] Platelets (Bld) [#/Vol] 348 10*3/uL Normal 150-450 [facility] Comment on above: Performed By: #### L 500.4050, L100.0100, L503.6005, L501.2450 #### [facility] [address] [place], [address] RBC (Bld) [#/Vol] 4.14 10*6/uL Low 4.2-5.4 [facility] Comment on above: Performed By: #### L 500.4050, L100.0100, L503.6005, L501.2450 #### [facility] [address] [place], [address] RDW SD 38.6 fl Normal 35.1-43.9 [facility] Comment on above: Performed By: #### L 500.4050, L100.0100, L503.6005, L501.2450 #### [facility] [address] [place], [address] WBC (Bld) [#/Vol] 8.7 10*3/uL Normal 4.4-11.0 [facility] Comment on above: Performed By: #### L 500.4050, L100.0100, L503.6005, L501.2450 #### [facility] [address] [place], [address] Comprehensive Metabolic Prof ilon 03-16-2025 Albumin [Mass/Vol] 4.3 g/dL Normal 3.5-5.0 [facility] Comment on above: Performed By: #### L 500.4050, L100.0100, L503.6005, L501.2450 #### [facility] [address] [place], [address] Albumin/Globulin [Mass ratio] 1.3 {ratio} Normal 0.9-2.4 [facility] Comment on above: Performed By: #### L 500.4050, L100.0100, L503.6005, L501.2450 #### [facility] [address] [place], [address] ALK PHOS 106 U/L High 35-104 [facility] Comment on above: Performed By: #### L 500.4050, L100.0100, L503.6005, L501.2450 #### [facility] [address] [place], [address] ALT [Catalytic activity/Vol] 9 U/L Normal <=34 [facility] Comment on above: Performed By: #### L 500.4050, L100.0100, L503.6005, L501.2450 #### [facility] [address] [place], [address] AST [Catalytic activity/Vol] 20 U/L Normal <=31 [facility] Comment on above: Performed By: #### L 500.4050, L100.0100, L503.6005, L501.2450 #### [facility] [address] [place], [address] Bilirubin [Mass/Vol] 0.15 mg/dL Normal 0.00-1.30 [facility] Comment on above: Performed By: #### L 500.4050, L100.0100, L503.6005, L501.2450 #### [facility] [address] [place], [address] BUN/CRE 18.6 RATIO Normal 10-20 [facility] Comment on above: Performed By: #### L 500.4050, L100.0100, L503.6005, L501.2450 #### [facility] [address] [place], [address] Calcium [Mass/Vol] 9.3 mg/dL Normal 7.6-11.0 [facility] Comment on above: Performed By: #### L 500.4050, L100.0100, L503.6005, L501.2450 #### [facility] [address] [place], [address] Chloride [Moles/Vol] 105 mmol/L Normal 98-108 [facility] Comment on above: Performed By: #### L 500.4050, L100.0100, L503.6005, L501.2450 #### [facility] [address] [place], [address] CO2 [Moles/Vol] 18.7 mmol/L Low 21.0-32.0 [facility] Comment on above: Performed By: #### L 500.4050, L100.0100, L503.6005, L501.2450 #### [facility] [address] [place], [address] Creatinine [Mass/Vol] 1.03 mg/dL Normal 0.70-1.20 [facility] Comment on above: Performed By: #### L 500.4050, L100.0100, L503.6005, L501.2450 #### [facility] [address] [place], [address] ECRCL 68.27 ml/min Normal 50-250 [facility] Comment on above: Performed By: #### L 500.4050, L100.0100, L503.6005, L501.2450 #### [facility] [address] [place], [address] GAP 14 Normal 5-15 [facility] Comment on above: Performed By: #### L 500.4050, L100.0100, L503.6005, L501.2450 #### [facility] [address] [place], [address] GFR/1.73 sq M.predicted among non-blacks MDRD (S/P/Bld) [Vol rate/Area] 70 mL/min/{1.73_m2} Normal >60 [facility] Comment on above: Result Comment: mL/m in/1.73m2 CKD-EPI Creatinine Equation (2020) Performed By: #### L 500.4050, L100.0100, L503.6005, L501.2450 #### [facility] [address] [place], [address] Globulin (S) [Mass/Vol] 3.2 g/dL Normal 2.2-4.2 [facility] Comment on above: Performed By: #### L 500.4050, L100.0100, L503.6005, L501.2450 #### [facility] [address] [place], [address] Glucose [Mass/Vol] 92 mg/dL Normal 70-99 [facility] Comment on above: Performed By: #### L 500.4050, L100.0100, L503.6005, L501.2450 #### [facility] [address] [place], [address] Potassium [Moles/Vol] 3.5 mmol/L Normal 3.3-5.1 [facility] Comment on above: Performed By: #### L 500.4050, L100.0100, L503.6005, L501.2450 #### [facility] [address] [place], [address] Sodium [Moles/Vol] 137 mmol/L Normal 133-145 [facility] Comment on above: Performed By: #### L 500.4050, L100.0100, L503.6005, L501.2450 #### [facility] [address] [place], [address] T PROT 7.5 g/dL Normal 5.9-8.4 [facility] Comment on above: Performed By: #### L 500.4050, L100.0100, L503.6005, L501.2450 #### [facility] [address] [place], [address] Urea nitrogen [Mass/Vol] 19 mg/dL Normal 4-19 [facility] Comment on above: Performed By: #### L 500.4050, L100.0100, L503.6005, L501.2450 #### [facility] [address] [place], [address] Lactic Acidon 03-16-2025 Lactate [Moles/Vol] 1.5 mmol/L Normal 0.0-2.0 [facility] Comment on above: Order Comment: Y Performed By: #### L 500.4050, L100.0100, L503.6005, L501.2450 #### [facility] [address] [place], [address] Lipaseon 03-16-2025 Lipase [Catalytic activity/Vol] 60 U/L Normal 13-75 [facility] Comment on above: Result Comment: Talia freeman note: LIPASE revised reference range effective 23. New Lipase methodology. Expected to produce lower values than the previous assay method. NEW Reference Range: 13 - 75 U/L Performed By: #### L 500.4050, L100.0100, L503.6005, L501.2450 #### [facility] [address] [place], [address] Abdomen/Pelvis W IV Cont ONL Yon 03-15-2025 Abdomen/Pelvis W IV Cont ONLY [facility] Imaging Services [address] [place] [address] Abdomen/Pelvis W IV Cont ONLY MR#: [id number] Acct: [id number] Name: VI VELA Rep #: [id number] : 1980 F 44 From: Vini Barcenas MD PCP: ALDO Scruggs Status: REG ER Study: Abdomen/Pelvis W IV Cont ONLY Date of Exam: Exam# [id number] Ordering Dr: Austin Rhodes DO PROCEDURE: ABDOMEN/PELVIS W IV CONT ONLY 03/16/2025 REASON FOR EXAM: ABDOMINAL PAIN TECHNIQUE: Abdomen and pelvis CT with intravenous contrast. Coronal and Sagittal reconstruction series were provided. PATIENT PREPARATION: Per protocol ORAL CONTRAST TYPE: None. CONTRAST: 99 cc Isovue 370 IV One or more dose reduction techniques were used (e.g., Automated exposure control, adjustment of the mA and/or kV according to patient size, use of iterative reconstruction technique. RADIATION DOSE SUMMARY: CTDlvol: 14.61 mGy DLP: 771.22 mGycm COMPARISON: None available FINDINGS: The lung bases are clear. The liver, gallbladder, adrenal glands, kidneys, pancreas and spleen appear within limits. Abdominal aorta appears within limits. No adenopathy. No bowel dilation or free air. The appendix is not identified, no secondary signs. Moderate proximal colonic stool without wall thickening or pericolonic inflammatory change. The ovaries/adnexa, uterus and bladder appear within limits. Tampon noted. No free fluid seen. Status post L5-S1 posterior fusion with intervertebral disc spacer. CT/Abdomen/Pelvis W IV Cont ONLY IMPRESSION: No evidence of acute process. Reading Location: [id number] CC: ALDO Mann; Dr. Austin Rhodes DO Operations Engineer: Signed Normal [facility] Absolute lymphocyte countOrd ered By: Austin Rhodes on 03-15-2025 Lymphocytes Auto (Unsp spec) [#/Vol] 3.46 10*3/uL 0.83-4.51 [facility] Absolute neutrophil countOrd ered By: Austin Rhodes on 03-15-2025 Neutrophils (Bld) [#/Vol] 4.0 10*3/uL 2.0-7.7 [facility] Anion gap in Serum or Plasma Ordered By: Austin Rhodes on 03-15-2025 Anion gap [Moles/Vol] 14 mmol/L 5-15 [facility] Automated lymphocyte count a s percentage of total leukocytesOrdered By: Austin Rhodes on 03-15-2025 Lymphocytes/100 WBC Auto (Unsp spec) 40.0 % - [facility] BUN/creatinine ratioOrdered By: Austin Rhodes on 03-15-2025 Urea nitrogen/Creatinine [Mass ratio] 18.6 mg/mg 10-20 [facility] Basophil percentageOrdered B y: Austin Rhodes on 03-15-2025 Basophils/100 WBC (Bld) 0.7 % 0-1 [facility] Bilirubin Test strip Ql (U)O rdered By: Austin Rhodes on 03-15-2025 Bilirubin Ql (U) Negative Negative [facility] Bilirubin, totalOrdered By: Austin Rhodes on 03-15-2025 Bilirubin [Mass/Vol] 0.15 mg/dL 0.00-1.30 [facility] Carbon dioxide, total [Moles /volume] in Central venous bloodOrdered By: Austin Rhodes on 03-15-2025 CO2 [Moles/Vol] 18.7 mmol/L Low 21.0-32.0 [facility] Chloride assayOrdered By: Evelyne Rhodes on 03-15-2025 Chloride [Moles/Vol] 105 mmol/L 98-108 [facility] Emergency Department Summary on 03-15-2025 Emergency Department Summary [facility] Medical Records Department [address] [place] [address] Emergency Department Summary 03/15/25 MR#: [id number] Acct: [id number] Name: VI VELA Rep #: [id number] : 1980 44 From: Austin Rhodes DO PCP: ALDO Scruggs Status:DEP ER Location: ED HPI HPI - GI History of Present Illness Chief Complaint: Abd Pain Detail of Chief Complaint: Abdominal pain Informant: patient Narrative Narrative: Patient presents to the emergency department with complaint of abdominal pain that started around 9 PM tonight. Patient thought that she was get a little anxious and she tried to lay down to go to sleep and then started having sharp stabbing pains in the upper abdomen. She describes some mild nausea but no vomiting. She has not had pain like this before. She states that she had history of a peptic ulcer in her 20s but no issues since that time. She still has her gallbladder. She has history of endometriosis and has had her appendix removed. She denies fevers. She ate tacos for dinner and has had tacos throughout the week and has not had any issues. Pain does not radiate to her back. She rates her pain a 9 out of 10 currently. [facility] Medical History COVID Wears hearing aid Loss of hearing Depression Restless legs History of chemical tubal occlusion Wears glasses Wears contact lenses Anxiety Alcohol use Back pain Injury of back Former smoker History of herniated intervertebral disc Stomach ulcer Home Medications ???Medication ???Instructions ???Recorded ???Last Taken ???Type cholecalciferol (vitamin D3) 25 25 mcg PO DAILY 04/24/21 07/17/24 History mcg (1,000 unit) chewable tablet (Vitamin D3) citalopram 40 mg tablet 40 mg PO DAILY 04/24/21 07/17/24 H istory bupropion HCl 150 mg 24 hr tablet, 150 mg PO QDAY 05/05/24 07/17/24 History extended release acetaminophen 500 mg tablet 500 mg PO Q6H #30 tabs 07/19/24 Un known Rx drospirenone (contraceptive) 4 mg 1 tab PO QDAY 10/10/24 Unknown Hi story (28) tablet (Slynd) Allergy/AdvReac Type Severity Reaction Status Date / Time morphine AdvReac Itching Verified 03/15/25 22:58 Family History Other Alcoholism CVA (cerebral vascular accident) Heart disease Osteoporosis Thyroid disorder Surgical History History of hysteroscopy History of tonsillectomy and adenoidectomy Hx of laparoscopy History of foot surgery History of delivery Social History Smoking Status: Former smoker alcohol intake: current alcohol intake frequency: holidays/special occasions only substance use type: does not use what type of physical activity do you participate in: yoga frequency: 3-4 times per week ROS ROS ED Review of Systems ROS Unobtainable: other Constitutional Constitutional ED: Reports lethargy; Denies chills, fever(s), sweats or weight loss Eyes Eyes: Denies blurry vision, change in vision or diplopia ENT ENT ED: Denies rhinorrhea or sore throat Cardiovascular Cardiovascular: Denies chest pain, orthopnea or racing heartbeat Respiratory/Chest Respiratory/Chest: Denies cough, dyspnea, dyspnea on exertion, orthopnea or sputum Gastrointestinal Gastrointestinal: Reports abdominal pain and nausea; Denies diarrhea or vomiting Genitourinary Genitourinary ED: Denies dysuria, hematuria or urinary frequency Musculoskeletal Musculoskeletal: Denies arthralgias, back pain, myalgias or neck pain Integumentary Denies abscess, Abrasions or rash Neurologic Neurologic: Denies headache(s) or weakness Psychiatric Psychiatric: Denies anxiety, depression or suicidal thoughts Endocrine Endocrinology: Denies polydipsia, polyphagia or polyuria Hematologic/Lymphatic Hematologic/Lymphatic : Denies easy bleeding, easy bruising or lymphadenopathy Allergic/Immunologic Allergic/Immunologic ED: Denies mouth swelling, tongue swelling or urticaria EXAM Physical Exam Const Vital Signs: 03/15/25 22:58 03/15/25 23:58 Temperature 97.8 F Temperature Source Temporal Pulse Rate 82 72 Respiratory Rate 18 16 Blood Pressure 122/84 H 117/70 Blood Pressure Mean 96 85 Pulse Ox 100 98 Oxygen Delivery Method Room Air Room Air Positive well nourished and well developed General Appearance ED: well developed and NAD HEENT Reports TM's clear and moist mucous membranes normocephalic and atraumatic; Negative for trauma or tenderness Tympanic Membrane ED: Yes TM's clear Eyes PERRL and EOMs intact bilaterally General Eye ED: Negative for pale conjunctiva or scleral icterus Neck no lymphadenopathy, supple (more content not included)... Normal [facility] Eosinophil percentageOrdered By: Austin Rhodes on 03-15-2025 Eosinophils/100 WBC (Bld) 1.8 % 0-5 [facility] Erythrocyte distribution wid th ratioOrdered By: Austin Rhodes on 03-15-2025 Erythrocyte distribution width (RBC) [Ratio] 12.0 % 11.6-14.6 [facility] Erythrocyte distribution wid th standard deviationOrdered By: Austin Rhodes on 03-15-2025 Erythrocyte distribution width (RBC) [Ratio] 38.6 fl 35.1-43.9 [facility] Glomerular filtration rate ( GFR) estimation/1.73 sq m using serum, plasma, or whole bOrdered By: Austin Rhodes on 03-15-2025 GFR/1.73 sq M.predicted among non-blacks MDRD (S/P/Bld) [Vol rate/Area] 70 mL/min/{1.73_m2} >60 [facility] Comment on above: mL/min/1.73m2 CKD-EP I Creatinine Equation (2020) Hematocrit Auto (Bld) [Volum e fraction]Ordered By: Austin Rhodes on 03-15-2025 Hematocrit (Bld) [Volume fraction] 36.2 % Low 37-47 [facility] Hemoglobin measurementOrdere d By: Austin Rhodes on 03-15-2025 Hemoglobin (Bld) [Mass/Vol] 12.2 g/dL 12.0-15.0 [facility] Immature granulocytes/100 WB C Auto (Bld)Ordered By: Austin Rhodes on 03-15-2025 Immature granulocytes/100 WBC (Bld) 0.300 % 0.0-0.9 [facility] Comment on above: IG% - Immature Granu locytes (promyelocytes, myelocytes and metamyelocytes) > 1% indicates that a LEFT SHIFT is Present. Ketones Test strip Ql (U)Ord ered By: Austin Rhodes on 03-15-2025 Ketones Ql (U) Negative Negative [facility] - Chemistry and C hemistry - challengeOrdered By: Austin Rhodes on 03-15-2025 AST [Catalytic activity/Vol] 20 U/L <32 [facility] Lactic acid measurementOrder ed By: Austin Rhodes on 03-15-2025 Lactate [Moles/Vol] 1.5 mmol/L 0.0-2.0 [facility] Lipase measurementOrdered By : Austin Rhodes on 03-15-2025 Lipase [Catalytic activity/Vol] 60 U/L 13-75 [facility] Comment on above: Please note:LIPASE r evised reference range effective 23. New Lipase methodology. Expected to produce lower values than the previous assay method. NEW Reference Range: 13 - 75 U/L MCV (mean corpuscular volume ) determinationOrdered By: Austin Rhodes on 03-15-2025 MCV (RBC) [Entitic vol] 87.4 fL 81-99 [facility] Mean corpuscular hemoglobin (MCH) determinationOrdered By: Austin Rhodes on 03-15-2025 MCH (RBC) [Entitic mass] 29.5 pg 27.0-32.0 [facility] Mean corpuscular hemoglobin concentration (MCHC) determinationOrdered By: Austin Rhodes on 03-15-2025 MCHC (RBC) [Mass/Vol] 33.7 g/dL 32-36 [facility] Mean platelet volume determi nationOrdered By: Austin Rhodes on 03-15-2025 Platelet mean volume (Bld) [Entitic vol] 10.4 fL 6.2-12.0 [facility] Microscopic analysis of urin e for red blood cells (RBC)Ordered By: Austin Rhodes on 03-15-2025 Microscopic analysis of urine for red blood cells (RBC) 0 SEEN /hpf 0-5 [facility] Monocyte percentageOrdered B y: Austin Rhodes on 03-15-2025 Monocytes/100 WBC (Bld) 10.5 % High 0-10 [facility] Mucus LM Ql (Urine sed)Order ed By: Austin Rhodes on 03-15-2025 Mucus Ql (Urine sed) 0 SEEN /hpf [facility] Neutrophil percentageOrdered By: Austin Rhodes on 03-15-2025 Neutrophils/100 WBC (Bld) 46.7 % Low 47-70 [facility] Nitrite Test strip Ql (U)Ord ered By: Austin Rhodes on 03-15-2025 Nitrite Ql (U) Negative Negative [facility] Nucleated red blood cell per centageOrdered By: Austin Rhodes on 03-15-2025 Nucleated RBC/100 WBC (Bld) [Ratio] 0 % 0-5 [facility] Platelet countOrdered By: Evelyne Rhodes on 03-15-2025 Platelets (Bld) [#/Vol] 348 10*3/uL 150-450 [facility] Potassium measurement (mass/ volume)Ordered By: Austin Rhodes on 03-15-2025 Potassium (Unsp spec) [Mass/Vol] 3.5 mmol/L 3.3-5.1 [facility] Protein Test strip Ql (U)Ord ered By: Austin Rhodes on 03-15-2025 Protein Ql (U) 15 mg/dl High Negative [facility] RBC Auto (Bld) [#/Vol]Ordere d By: Austin Rhodes on 03-15-2025 RBC (Bld) [#/Vol] 4.14 10*6/uL Low 4.2-5.4 [facility] Serum creatinine measurement (mass/volume)Ordered By: Austin Rhodes on 03-15-2025 Creatinine [Mass/Vol] 1.03 mg/dL 0.70-1.20 [facility] Serum globulin measurementOr dered By: Austin Rhodes on 03-15-2025 Globulin (S) [Mass/Vol] 3.2 g/dL 2.2-4.2 [facility] Serum glucose measurement (m ass/volume)Ordered By: Austin Rhodes on 03-15-2025 Glucose [Mass/Vol] 92 mg/dL 70-99 [facility] Serum or plasma alanine newton otransferase (ALT) measurementOrdered By: Austin Rhodes on 03-15-2025 ALT [Catalytic activity/Vol] 9 U/L <35 [facility] Serum or plasma albumin willy urement (mass/volume)Ordered By: Austin Rhodes on 03-15-2025 Albumin [Mass/Vol] 4.3 g/dL 3.5-5.0 [facility] Serum or plasma albumin/glob ulin mass ratioOrdered By: Austin Rhodes on 03-15-2025 Albumin/Globulin [Mass ratio] 1.3 {ratio} 0.9-2.4 [facility] Serum or plasma alkaline yanna sphatase measurementOrdered By: Austin Jackalhaji on 03-15-2025 ALP [Catalytic activity/Vol] 106 U/L High 35-104 [facility] Serum or plasma calcium willy urement (mass/volume)Ordered By: Austin Jackalhaji on 03-15-2025 Calcium [Mass/Vol] 9.3 mg/dL 7.6-11.0 [facility] Serum or plasma urea nitroge n measurement (mass/volume)Ordered By: Austin Jackalhaji on 03-15-2025 Urea nitrogen [Mass/Vol] 19 mg/dL 4-19 [facility] Sodium levelOrdered By: Flex Jackalhaji on 03-15-2025 Sodium [Moles/Vol] 137 mmol/L 133-145 [facility] Squamous epithelial cells de tection in urine sediment by light microscopyOrdered By: Austin Jackalhaji on 03-15-2025 Epithelial cells.squamous LM Ql (Urine sed) 0 SEEN /hpf 5-10 [facility] Total proteinOrdered By: Connie Jackalhaji on 03-15-2025 Protein [Mass/Vol] 7.5 g/dL 5.9-8.4 [facility] Urinalysis, Completeon 03-15 BACTERIA 0 SEEN Normal None Seen [facility] Comment on above: Order Comment: CLEAN CATCH Performed By: #### L 400.0001 ####[facility] [address] [place], [place], [id number] EPI,SQUAMOUS 0 SEEN Normal 5-10 [facility] Comment on above: Order Comment: CLEAN CATCH Performed By: #### L 400.0001 ####[facility] [address] [place], [address] Mucus Ql (Urine sed) 0 SEEN Normal [facility] Comment on above: Order Comment: CLEAN CATCH Performed By: #### L 400.0001 ####[facility] [address] [place], [address] RBC 0 SEEN Normal 0-5 [facility] Comment on above: Order Comment: CLEAN CATCH Performed By: #### L 400.0001 ####[facility] [address] [place], [place], [id number] WBC 0 SEEN Normal 0-5 [facility] Comment on above: Order Comment: CLEAN CATCH Performed By: #### L 400.0001 ####[facility] [address] [place], [place], [id number] Urine clarityOrdered By: Connie Rhodes on 03-15-2025 Clarity (U) Clear Clear [facility] Urine color determinationOrd ered By: Austin Rhodes on 03-15-2025 Color (U) Yellow Yellow [facility] Urine glucose detectionOrder ed By: Austin Rhodes on 03-15-2025 Glucose Ql (U) Normal mg/dl Normal [facility] Urine leukocyte esterase det ection by dipstickOrdered By: Austin Rhodes on 03-15-2025 Leukocyte esterase Test strip Ql (U) 25 /ul High Negative [facility] Urine pHOrdered By: Austin Un gur on 03-15-2025 pH (U) 8.0 [pH] 5.0 - 8.0 [facility] Urine sediment bacteria coun t by microscopy (number/high power field)Ordered By: Austin Rhodes on 03-15-2025 Bacteria LM.HPF (Urine sed) [#/Area] 0 /[HPF] None Seen [facility] Urine specific gravity measu rementOrdered By: Austin Rhodes on 03-15-2025 Specific gravity (U) [Rel density] 1.010 1.002-1.030 [facility] Urine urobilinogen measureme ntOrdered By: Austin Rhodes on 03-15-2025 Urobilinogen Ql (U) Normal mg/dl Normal [facility] White blood cell (WBC) count Ordered By: Austin Rhodes on 03-15-2025 WBC (Bld) [#/Vol] 8.7 10*3/uL 4.4-11.0 [facility] White blood cell countOrdere d By: Austin Rhodes on 03-15-2025 White blood cell count 0 SEEN /hpf 0-5 [facility] Lumbar Spine 2 or 3 Viewson 12-04-2024 Lumbar Spine 2 or 3 Views [facility] [address] [place] [address] Lumbar Spine 2 or 3 Views MR#: [id number] Acct: [id number] Name: VI VELA Rep #: [id number] : 1980 F 44 From: Cuauhtemoc Zaidi MD PCP: ALDO Scruggs Status: DEP AMB Study: Lumbar Spine 2 or 3 Views Date of Exam: Exam# [id number] Ordering Dr: Bertha Conklin [id number] STUDY: X-RAY - LUMBAR SPINE REASON FOR EXAM: Female, 44 years old. Postop pain TECHNIQUE: 2 view(s) of the lumbar spine were obtained. COMPARISON: 10/10/2024 FINDINGS: Stable surgical hardware at L5 and S1. No complications Normal lumbar lordosis. There is no substantial scoliosis. There is a normal alignment of the vertebrae. Normal vertebral bodies and endplates. Normal disc space heights. The soft tissue structures are unremarkable. RAD/Lumbar Spine 2 or 3 Views IMPRESSION: Stable postsurgical changes at L5 and S1, no acute findings, no interval change Electronically Signed: Papa Zaidi MD at 15:09 EST , CC: ALDO Mann; DEE Hogan Operations Engineer: Signed Normal [facility] MR Pelvis WO and W contrast Amina 12-04-2024 IMPRESSION: Retroflexed uterus with thin fibrotic tethering between the torus uterinus, rectosigmoid, and left ovary, which may relate to deep infiltrating endometriosis. Adenomyosis. Operations Engineer: TYRONE Transcribe Date/Time: Dec 04 2024 11:56A Dictated by : TAVIA PIERRE DO This examination was interpreted and the report reviewed and electronically signed by: KADI ALBERTO MD on Dec 04 2024 2:08PM [facility] DIVISION OF RADIOLOGY * * *Final Report* * * DATE OF EXAM: Dec 04 2024 11:54AM [facility] 0713 - MRI FEMALE PELVIS WO/W IVCON / PROCEDURE REASON: multiple diagnoses * * * * Physician Interpretation * * * * MRI OF THE PELVIS WITHOUT AND WITH CONTRAST (ENDOMETRIOSIS PROTOCOL) CLINICAL HISTORY: Menorrhagia and pelvic pain. Assess for endometriosis. TECHNIQUE: Magnet: Siemens 1.5 T Avanto scanner. Coil: Torso phased array Sequences / planes: Multisequence, multiplanar MR imaging of the pelvis was performed with and without intravenous contrast. Contrast: Contrast Media: IV administration of 14 ml of Dotarem Contrast Media: Vaginal administration of 30 ml of Surgilube COMPARISON: US pelvis 09/12/2024 RESULT: Uterus: section scar. Size: 4.9 x 4.1 x 4.6cm Orientation: Anteverted and retroflexed Endometrium: Homogeneous signal intensity with no mass measuring 4 mm. Adenomyosis Assessment: Thickened junctional zone up to 1.4 cm with T2 hyperintense foci. Leiomyoma Assessment: None; Endometriosis Assessment: Anterior compartment: Bladder: Normal with no MR evidence of endometriosis Urinary Tract: No hydroureter. Round ligaments: No focal thickening or abnormal signal to suggest endometriosis. Vesicouterine pouch: No MR evidece of endometriosis Vesicovaginal septum: Normal fat plane with no MR evidence of endometriosis Prevesicular space: No T2 hypointense nodule or abnormal enhancement to suggest endometriosis. Middle Compartment Disease: Ovaries: - Right ovary: 2.3 x 1.2 x 2.4cm Physiologic follicles present, no endometrioma. Several paraovarian cysts measuring up to 1.6 cm. - Left ovary: 3.4 x 2.0 x 1.6 cm Physiologic follicles present, no endometrioma Fallopian tubes: No hematosalpinx or hydrosalpinx Vagina: No endometriosis Cervix: No abnormal signal to suggest endometriosis or neoplasm. Posterior compartment disease: Torus uterinus: Thin T2 dark band extending between the torus uterinus and anterior rectosigmoid and suspected posterior tethering of the left ovary (7:28-29). No associated T1 hyperintense hemorrhagic component Uterosacral ligament: No irregular thickening or abnormal signal to suggest endometriosis Retrocervical Space: Normal fat plane with no MR evidence of endometriosis Rectosigmoid: Fibrotic tethering between the torus uterinus and anterior rectosigmoid as described above. - Length of lesion: 0.2 cm - Circumferential extent:Less than 5% - Invasion into muscular wall present? no - Distance to anal verge: 15 cm Rectovaginal space / septum: Normal fat plane Additional bowel lesions present? (Sigmoid colon/ small bowel): -Small bowel and colon included witihin the field of view are normal caliber with no nodular thickeing to suggest endometriosis. -Appendix is not identified Additional sites of endometriosis: - No nodularity or abnormal enhancement to suggest abdominal wall endometriosis. - No findings suspicious for neural endometriosis Pelvis free fluid: None Lymph nodes: No lymph nodes enlarged by size criteria. Bones:Normal marrow signal. L5-S1 posterior fusion hardware. DIVISION OF RADIOLOGY Provider, [facility] - 12/04/2024 * * *Final Report* * * DATE OF EXAM: Dec 04 2024 11:54AM [facility] 0713 - MRI FEMALE PELVIS WO/W IVCON / PROCEDURE REASON: multiple diagnoses * * * * Physician Interpretation * * * * MRI OF THE PELVIS WITHOUT AND WITH CONTRAST (ENDOMETRIOSIS PROTOCOL) CLINICAL HISTORY: Menorrhagia and pelvic pain. Assess for endometriosis. TECHNIQUE: Magnet: Siemens 1.5 T Avanto scanner. Coil: Torso phased array Sequences / planes: Multisequence, multiplanar MR imaging of the pelvis was performed with and without intravenous contrast. Contrast: Contrast Media: IV administration of 14 ml of Dotarem Contrast Media: Vaginal administration of 30 ml of Surgilube COMPARISON: US pelvis 09/12/2024 RESULT: Uterus: section scar. Size: 4.9 x 4.1 x 4.6cm Orientation: Anteverted and retroflexed Endometrium: Homogeneous signal intensity with no mass measuring 4 mm. Adenomyosis Assessment: Thickened junctional zone up to 1.4 cm with T2 hyperintense foci. Leiomyoma Assessment: None; Endometriosis Assessment: Anterior compartment: Bladder: Normal with no MR evidence of endometriosis Urinary Tract: No hydroureter. Round ligaments: No focal thickening or abnormal signal to suggest endometriosis. Vesicouterine pouch: No MR evidece of endometriosis Vesicovaginal septum: Normal fat plane with no MR evidence of endometriosis Prevesicular space: No T2 hypointense nodule or abnormal enhancement to suggest endometriosis. Middle Compartment Disease: Ovaries: - Right ovary: 2.3 x 1.2 x 2.4cm Physiologic follicles present, no endometrioma. Several paraovarian cysts measuring up to 1.6 cm. - Left ovary: 3.4 x 2.0 x 1.6 cm Physiologic follicles present, no endometrioma Fallopian tubes: No hematosalpinx or hydrosalpinx Vagina: No endometriosis Cervix: No abnormal signal to suggest endometriosis or neoplasm. Posterior compartment disease: Torus uterinus: Thin T2 dark band extending between the torus uterinus and anterior rectosigmoid and suspected posterior tethering of the left ovary (7:28-29). No associated T1 hyperintense hemorrhagic component Uterosacral ligament: No irregular thickening or abnormal signal to suggest endometriosis Retrocervical Space: Normal fat plane with no MR evidence of endometriosis Rectosigmoid: Fibrotic tethering between the torus uterinus and anterior rectosigmoid as described above. - Length of lesion: 0.2 cm - Circumferential extent:Less than 5% - Invasion into muscular wall present? no - Distance to anal verge: 15 cm Rectovaginal space / septum: Normal fat plane Additional bowel lesions present? (Sigmoid colon/ small bowel): -Small bowel and colon included witihin the field of view are normal caliber with no nodular thickeing to suggest endometriosis. -Appendix is not identified Additional sites of endometriosis: - No nodularity or abnormal enhancement to suggest abdominal wall endometriosis. - No findings suspicious for neural endometriosis Pelvis free fluid: None Lymph nodes: No lymph nodes enlarged by size criteria. Bones:Normal marrow signal. L5-S1 posterior fusion hardware. IMPRESSION IMPRESSION: Retroflexed uterus with thin fibrotic tethering between the torus uterinus, rectosigmoid, and left ovary, which may relate to deep infiltrating endometriosis. Adenomyosis. Operations Engineer: TYRONE Transcribe Date/Time: Dec 04 2024 11:56A Dictated by : TAVIA PIERRE, DO This examination was interpreted and the report reviewed and electronically signed by: KADI ALBERTO MD on Dec 04 2024 2:08PM EST [facility] Radiology Study observation (narrative) Niraj pride [facility] MR Pelvis WO and W contrast IVOrdered By: Ccf Provider on 12-04-2024 [facility] MRI FEMALE PELVIS WO/W IVCON on 12-04-2024 MRI FEMALE PELVIS WO/W IVCON * * *Final Report* * * DATE OF EXAM: Dec 04 2024 11:54AM STM 0713 - MRI FEMALE PELVIS WO/W IVCON / PROCEDURE REASON: multiple diagnoses * * * * Physician Interpretation * * * * MRI OF THE PELVIS WITHOUT AND WITH CONTRAST (ENDOMETRIOSIS PROTOCOL) CLINICAL HISTORY: Menorrhagia and pelvic pain. Assess for endometriosis. TECHNIQUE: Magnet: Siemens 1.5 T Avanto scanner. Coil: Torso phased array Sequences / planes: Multisequence, multiplanar MR imaging of the pelvis was performed with and without intravenous contrast. Contrast: Contrast Media: IV administration of 14 ml of Dotarem Contrast Media: Vaginal administration of 30 ml of Surgilube COMPARISON: US pelvis 09/12/2024 RESULT: Uterus: section scar. Size: 4.9 x 4.1 x 4.6cm Orientation: Anteverted and retroflexed Endometrium: Homogeneous signal intensity with no mass measuring 4 mm. Adenomyosis Assessment: Thickened junctional zone up to 1.4 cm with T2 hyperintense foci. Leiomyoma Assessment: None; Endometriosis Assessment: Anterior compartment: Bladder: Normal with no MR evidence of endometriosis Urinary Tract: No hydroureter. Round ligaments: No focal thickening or abnormal signal to suggest endometriosis. Vesicouterine pouch: No MR evidece of endometriosis Vesicovaginal septum: Normal fat plane with no MR evidence of endometriosis Prevesicular space: No T2 hypointense nodule or abnormal enhancement to suggest endometriosis. Middle Compartment Disease: Ovaries: - Right ovary: 2.3 x 1.2 x 2.4cm Physiologic follicles present, no endometrioma. Several paraovarian cysts measuring up to 1.6 cm. - Left ovary: 3.4 x 2.0 x 1.6 cm Physiologic follicles present, no endometrioma Fallopian tubes: No hematosalpinx or hydrosalpinx Vagina: No endometriosis Cervix: No abnormal signal to suggest endometriosis or neoplasm. Posterior compartment disease: Torus uterinus: Thin T2 dark band extending between the torus uterinus and anterior rectosigmoid and suspected posterior tethering of the left ovary (7:28-29). No associated T1 hyperintense hemorrhagic component Uterosacral ligament: No irregular thickening or abnormal signal to suggest endometriosis Retrocervical Space: Normal fat plane with no MR evidence of endometriosis Rectosigmoid: Fibrotic tethering between the torus uterinus and anterior rectosigmoid as described above. - Length of lesion: 0.2 cm - Circumferential extent:Less than 5% - Invasion into muscular wall present? no - Distance to anal verge: 15 cm Rectovaginal space / septum: Normal fat plane Additional bowel lesions present? (Sigmoid colon/ small bowel): -Small bowel and colon included witihin the field of view are normal caliber with no nodular thickeing to suggest endometriosis. -Appendix is not identified Additional sites of endometriosis: - No nodularity or abnormal enhancement to suggest abdominal wall endometriosis. - No findings suspicious for neural endometriosis Pelvis free fluid: None Lymph nodes: No lymph nodes enlarged by size criteria. Bones:Normal marrow signal. L5-S1 posterior fusion hardware. IMPRESSION: Retroflexed uterus with thin fibrotic tethering between the torus uterinus, rectosigmoid, and left ovary, which may relate to deep infiltrating endometriosis. Adenomyosis. Operations Engineer: TYRONE Transcribe Date/Time: Dec 04 2024 11:56A Dictated by : TAVIA PIERRE DO This examination was interpreted and the report reviewed and electronically signed by: KADI ALBERTO MD on Dec 04 2024 2:08PM EST [id number] Normal [facility] Orthopedic Visit Reporton Orthopedic Visit Report [facility] [address] [place], [place] [id number] OFFICE VISIT Date of Service: 12/04/24 MR#: [id number] Acct: [id number] Name: VI VELA Rep #: [id number] : 1980 Provider: DEE Hogan Age/Sex: 44/F Location: [facility]LL[facility] Status: Signed Intake Vital Signs 08/03/24 09:59 Height 5 ft 4 in Intake Visit Reasons: LUMBAR SPINE Allergies morphine Adverse Reaction (Verified 12/04/24 14:39) Itching Medications ???Medication ???Instructions ???Recorded ???Confirmed ???Type cholecalciferol (vitamin D3) 25 25 mcg PO DAILY 04/24/21 12/04/24 History mcg (1,000 unit) chewable tablet (Vitamin D3) citalopram 40 mg tablet 40 mg PO DAILY 04/24/21 12/04/24 History bupropion HCl 150 mg 24 hr tablet, 150 mg PO QDAY 05/05/24 12/04/24 History extended release acetaminophen 500 mg tablet 500 mg PO Q6H #30 tabs 07/19/24 12/04/24 Rx drospirenone (contraceptive) 4 mg 1 tab PO QDAY 10/10/24 12/04/24 History (28) tablet (Slynd) PFSH Medical History COVID Wears hearing aid Loss of hearing Depression Restless legs History of chemical tubal occlusion Wears glasses Wears contact lenses Anxiety Alcohol use Back pain Injury of back Former smoker History of herniated intervertebral disc Stomach ulcer Surgical History History of hysteroscopy History of tonsillectomy and adenoidectomy Hx of laparoscopy History of foot surgery History of delivery Family History Other Alcoholism CVA (cerebral vascular accident) Heart disease Osteoporosis Thyroid disorder Social History Smoking Status: Former smoker alcohol intake: current alcohol intake frequency: holidays/special occasions only substance use type: does not use what type of physical activity do you participate in: yoga frequency: 3-4 times per week HPI LUMBAR SPINE Details: This documentation accurately reflects the service provided and the decisions made by me, DEE Hogan 12/04/24 1432. Part of today???s visit was documented by Aurora MILLER, acting as scribe. VI VELA is a 44 year old F here today for low back pain. Patient did have surgery for L5- S1 transforaminal lumbar interbody fusion (TLIF) dos: 07/18/24. She states that before [place] she lifted something that was 45lbs off of a pallet. Says that she knows that she did not lift it properly and lifted more with her back than with her legs. Her pain is on the left side of her low back which is here she was having pain before surgery. She states that if she does a lot of lifting it flares up her back more. She denies radicular symptoms. Denies numbness, tingling or other associated symptoms. She just wants to make sure she didn't hurt anything from where the surgery was done. She has been taking Ibuprofen or Aleve for pain and if the pain gets too bad she takes a left over muscle relaxer from surgery before bad. She has also been using ice for the pain. She is avoiding lifting heavy at work, but other than that is not limiting any other activity in her daily life. She does think that the pain has very slightly improved since the accident. Ortho Exam General General: Yes no acute distress Neurologic: Yes alert and Yes oriented x3 Spine Skin: Yes CDI and Yes healed SPINE TESTING CERVICAL THORACIC LUMBAR Musculoskeletal Strength 0=absent - 5=normal Details: Physical examination of the back shows well-healed and dry surgical incisions. Neurological exam of the lower extremity shows 5X5 power. Normal sensation across all dermatomes. Mild left-sided paraspinal tenderness. No midline tenderness. Coding Level of Care Code Off vis,est,level 2 Diagnoses Status post lumbar spinal fusion Z98.1 Assessment and Plan Assessment and Plan (1) Status post lumbar spinal fusion: Status: Acute Orders: Orders Lumbar Spine 2 or 3 Views Today M54.50 - Low back pain, unspecified Plan Obtained and reviewed x-rays today with the patient. Independent interpretation of the x-rays was performed, awaiting radiologist report. X-rays show a L5-S1 fusion with hardware and bone graft in good position. At this time patient has had several weeks worth of a left sided low back pain after lifting about 45 pounds from the ground. At the time of her injury she was just finishing up physical therapy. She does continue to have exercises and stretching that she can do at home from a home exercise program. Recommend that she do some of these exercises and stretching so long as they do not increase her pain. At this katlyn (more content not included)... Normal [facility] PT D/C Summary (1)on 12-24-2 024 PT D/C Summary (1) [facility] Physical Therapy [facility] [address] [place] [address] / REHABILITATION SERVICES DISCHARGE SUMMARY MR#: [id number] Acct: [id number] Name: VI VELA Rep #: [id number] : 1980 44 From: George Mccarthy PT, Cert. T, OCS Referring Dr.: DEE Hogan Status: REG RCR Insurance: [employer] SELF PAY INSURANCE Discharge Summary D/C summary: It has been my pleasure to treat VI VELA referred by DEE Hogan, with the diagnosis of ARTHRODESIS ,LUMBAR for a total of 23 visit(s). Discharge Date: 11/07/24 Please see the following information for a summary of their discharge status. Subjective Subjective: Patient caused soreness in back from lifting Pain L LE: Pain Intensity (Out of 10): 0 LB: Pain Intensity (Out of 10): 3 Overall Improvement % Improvement: 90 Objective Objective/Function: POSTURE: mild forward posture GAIT: reciprocal pattern SKIN: incision well approximate FLEXABILITY: hamstrings min tight LUMBAR ROM: flexion MIN loss ,extension min loss ,side min loss MMT: quads/hams 4/5 ,hip flexion 4-/5 ,ankle 5/5 Goals Goal 1:: Patient to be I with HEP for lumbar Goal Progress: Goal Met Goal 2:: Patient to improve lumbar ROM for function of recovery for ADLS and housework task Goal Progress: Goal Met Goal 3:: Patient to improve back oswestry score by 5 points to improve QOL and function Goal Progress: Goal Met Goal 4:: Patient to demonstrate 75% improvement with less pain and improved function Goal Progress: Goal Met Goal 5:: Patient to RTW and and housework tasks with no limitations Goal Progress: Goal Met Plan Plan: D/C TO HEP D/C Information Discharge Comments: HEP d/c sentence: If there are questions or concerns regarding this patient's physical therapy, please feel free to call me at [phone]. Thank you for the referral of this patient. Sincerely, George Mccarthy, PT, Cert MDT, OCS Balance/Gait/Function al tests Balance/Special Test Scores Oswestry Low Back Score: 3 Improvement % Improvement: 90 11/09/24 1036 CC: ALDO Mann; DEE Hogan CAL Signed Normal [facility] CBC panel Auto (Bld)on 10-31 Erythrocyte distribution width (RBC) [Ratio] 13.2 % 11.5 - 15.0 % [facility] Hematocrit (Bld) [Volume fraction] 41.2 % 36.0 - 46.0 % [facility] Hemoglobin (Bld) [Mass/Vol] 13.2 g/dL 11.5 - 15.5 g/dL [facility] Interpretation and review of laboratory results Normal [facility] MCH (RBC) [Entitic mass] 28.3 pg 26.0 - 34.0 pg [facility] MCHC (RBC) [Mass/Vol] 32.0 g/dL 30.5 - 36.0 g/dL [facility] MCV (RBC) [Entitic vol] 88.4 fL 80.0 - 100.0 fL [facility] Nucleated RBC (Bld) [#/Vol] NINF [facility] Platelet mean volume (Bld) [Entitic vol] 10.6 fL 9.0 - 12.7 fL [facility] Platelets (Bld) [#/Vol] 309 10*3/uL [facility] RBC (Bld) [#/Vol] 4.66 10*6/uL 3.90 - 5.2 0 m/uL [facility] WBC (Bld) [#/Vol] 6.90 10*3/uL [facility] Erythrocyte distribution width (RBC) [Ratio] 13.2 % Normal 11.5-15.0 [facility] Comment on above: Order Comment: Speci men Type: BLOOD SPECIMENOrdering Facility: [facility] Address: [address] [place] [address] Performed By: #### 5 8410-2 ####[facility] LABCLIA [id number] [place] [address] [place] Hematocrit (Bld) [Volume fraction] 41.2 % Normal 36.0-46.0 [facility] Comment on above: Order Comment: Speci men Type: BLOOD SPECIMENOrdering Facility: [facility] Address: [address] [place] [address] Performed By: #### 5 8410-2 ####[facility] LABIA [id number] [place] [address] [place] Hemoglobin (Bld) [Mass/Vol] 13.2 g/dL Normal 11.5-15.5 [facility] Comment on above: Order Comment: Speci men Type: BLOOD SPECIMENOrdering Facility: [facility] Address: [address] [place] [address] Performed By: #### 5 8410-2 ####[facility] LABIA [id number] [place] [address] [place] MCH (RBC) [Entitic mass] 28.3 pg Normal 26.0-34.0 [facility] Comment on above: Order Comment: Speci men Type: BLOOD SPECIMENOrdering Facility: [facility] Address: [address] [place] [address] Performed By: #### 5 8410-2 ####[facility] LABIA [id number] [place] [address] [place] MCHC (RBC) [Mass/Vol] 32.0 g/dL Normal 30.5-36.0 [facility] Comment on above: Order Comment: Speci men Type: BLOOD SPECIMENOrdering Facility: [facility] Address: [address] [place] [address] Performed By: #### 5 8410-2 ####[facility] LABIA [id number] [place] [address] [place] MCV (RBC) [Entitic vol] 88.4 fL Normal 80.0-100.[address] [facility] Comment on above: Order Comment: Speci men Type: BLOOD SPECIMENOrdering Facility: [facility] Address: [address] [place] [address] Performed By: #### 5 8410-2 ####[facility] LABCLIA [id number] [place] [address] [place] Nucleated RBC (Bld) [#/Vol] 10*3/uL Normal <0.01 [facility] Comment on above: Order Comment: Speci men Type: BLOOD SPECIMENOrdering Facility: [facility] Address: [address] [place] [address] Performed By: #### 5 8410-2 ####[facility] LABIA [id number] [place] [address] [place] Platelet mean volume (Bld) [Entitic vol] 10.6 fL Normal 9.0-12.7 [facility] Comment on above: Order Comment: Speci men Type: BLOOD SPECIMENOrdering Facility: [facility] Address: [address] [place] [address] Performed By: #### 5 8410-2 ####[facility] LABIA [id number] [place] [address] [place] Platelets (Bld) [#/Vol] 309 10*3/uL Normal 150-400 [facility] Comment on above: Order Comment: Speci men Type: BLOOD SPECIMENOrdering Facility: [facility] Address: [address] [place] [address] Performed By: #### 5 8410-2 ####[facility] LABIA [id number] [place] [address] [place] RBC (Bld) [#/Vol] 4.66 10*6/uL Normal 3.90-5.20 [facility] Comment on above: Order Comment: Speci men Type: BLOOD SPECIMENOrdering Facility: [facility] Address: [address] [place] [address] Performed By: #### 5 8410-2 ####[facility] LABIA [id number] [place] [address] [place] WBC (Bld) [#/Vol] 6.90 10*3/uL Normal 3.70-11.00 [facility] Comment on above: Order Comment: Speci men Type: BLOOD SPECIMENOrdering Facility: [facility] Address: [address] [place] [address] Performed By: #### 5 8410-2 ####[facility] LABCLIA [id number] [place] [address] [place] FERRITINon 10-31-2024 Ferritin [Mass/Vol] 21.9 ng/mL 14.7 - 2 05.1 ng/mL [facility] Ferritin SerPl-mCncon 2023 Ferritin [Mass/Vol] 21.9 ng/mL Normal 14.7-205.1 [facility] Comment on above: Order Comment: Speci men Type: BLOOD SPECIMENOrdering Facility: [facility] Address: [address] [place] [address] Performed By: #### 5 0190-8, 2276-4 ####[facility] LABCLIA [id number] [place] [address] [place] Ferritin [Mass/Vol]on 2023 Interpretation and review of laboratory results Normal [facility] Iron and Iron binding capaci ty panelon 10-31-2024 Interpretation and review of laboratory results Normal [facility] Iron [Mass/Vol] 66 ug/dL 41 - 186 ug/dL [facility] Iron binding capacity [Mass/Vol] 355 ug/dL 232 - 386 ug/dL [facility] Iron/TIBC [Molar ratio] 18.6 % 15.0 - 57.0 % [facility] Iron [Mass/Vol] 66 ug/dL Normal 41-186 [facility] Comment on above: Order Comment: Speci men Type: BLOOD SPECIMENOrdering Facility: [facility] Address: [address] [place] [address] Performed By: #### 5 0190-8, 2276-4 ####[facility] LABCLIA [id number] [address] STATES OF [facility] Iron binding capacity [Mass/Vol] 355 ug/dL Normal 232-386 [facility] Comment on above: Order Comment: Speci men Type: BLOOD SPECIMENOrdering Facility: [facility] Address: [address] [place] [address] Performed By: #### 5 0190-8, 2276-4 ####[facility] LABCLIA [id number] [address] OF [facility] Iron/TIBC [Molar ratio] 18.6 % Normal 15.0-57.0 [facility] Comment on above: Order Comment: Speci men Type: BLOOD SPECIMENOrdering Facility: [facility] Address: [address] [place] [address] Performed By: #### 5 0190-8, 2276-4 ####[facility] LABCLIA [id number] [address] [place] Lumbar Spine 2 or 3 Viewson 10-10-2024 Lumbar Spine 2 or 3 Views [facility] [address] [place] [address] Lumbar Spine 2 or 3 Views MR#: [id number] Acct: [id number] Name: IV VELA Rep #: [id number] : 1980 F 44 From: Geovanny Hickey MD PCP: ALDO Scruggs Status: DEP AMB Study: Lumbar Spine 2 or 3 Views Date of Exam: Exam# [id number] Ordering Dr: Bertha Conklin [id number] STUDY: X-RAY - LUMBAR SPINE REASON FOR EXAM: Female, 44 years old. s/p fusion -- please do upright AP and LAT TECHNIQUE: AP and lateral view(s) of the lumbar spine were obtained. COMPARISON: August 31, 2024 FINDINGS: Normal lumbar lordosis. There is no substantial scoliosis. There is a normal alignment of the vertebrae. Postsurgical changes status post bilateral posterior fusion with disc spacer placement at L5-S1 Orthopedic hardware noted in satisfactory position and intact Normal vertebral bodies and endplates. Normal disc space heights. The soft tissue structures are unremarkable. No significant change since prior exam RAD/Lumbar Spine 2 or 3 Views IMPRESSION: Postop change at L5-S1. No acute fracture or other significant abnormality Electronically Signed: Geovanny Hickey MD at 16:04 EST Reading Location ID and State: [facility] / [place] Tel , Service support , CC: ALDO Mann; DEE Hogan Operations Engineer: Signed Normal [facility] Orthopedic Visit Reporton Orthopedic Visit Report [facility] [address] [place] [address] [place], [place] [id number] OFFICE VISIT Date of Service: 10/10/24 MR#: [id number] Acct: [id number] Name: VI VELA Rep #: [id number] : 1980 Provider: Dr. Mac Mcintyre MD Age/Sex: 44/F Location: [facility] Status: Signed Intake Vital Signs 08/03/24 09:59 Height 5 ft 4 in Intake Visit Reasons: LUMBAR SPINE Chief Complaint: Low back pain Accompanied by: Self Is patient in pain?: Yes Pain scale (1-10): 2 Allergies morphine Adverse Reaction (Verified 10/10/24 08:23) Itching Medications ???Medication ???Instructions ???Recorded ???Confirmed ???Type cholecalciferol (vitamin D3) 25 25 mcg PO DAILY 04/24/21 10/10/24 History mcg (1,000 unit) chewable tablet (Vitamin D3) citalopram 40 mg tablet 40 mg PO DAILY 04/24/21 10/10/24 History bupropion HCl 150 mg 24 hr tablet, 150 mg PO QDAY 05/05/24 10/10/24 History extended release acetaminophen 500 mg tablet 500 mg PO Q6H #30 tabs 07/19/24 10/10/24 Rx meloxicam 15 mg tablet 15 mg PO DAILY #30 tabs 07/19/24 10/10/24 Rx methocarbamol 500 mg tablet 750 mg (1.5 x 500 mg) PO TID PRN 08/03/24 10/10/24 Rx spasms/pain #30 tabs drospirenone (contraceptive) 4 mg 1 tab PO QDAY 10/10/24 10/10/24 History (28) tablet (Slynd) PFSH Medical History COVID Wears hearing aid Loss of hearing Depression Restless legs History of chemical tubal occlusion Wears glasses Wears contact lenses Anxiety Alcohol use Back pain Injury of back Former smoker History of herniated intervertebral disc Stomach ulcer Surgical History History of hysteroscopy History of tonsillectomy and adenoidectomy Hx of laparoscopy History of foot surgery History of delivery Family History Other Alcoholism CVA (cerebral vascular accident) Heart disease Osteoporosis Thyroid disorder Social History Smoking Status: Former smoker alcohol intake: current alcohol intake frequency: holidays/special occasions only substance use type: does not use what type of physical activity do you participate in: yoga frequency: 3-4 times per week HPI LUMBAR SPINE Details: This documentation accurately reflects the service provided and the decisions made by me, Dr. Mac Mcintyre MD 10/10/24 0815. Part of today???s visit was documented by Noelle URENA , acting as scribe. VI VELA is a 44 year old F here today for 3 month post-op L5-S1 transforaminal lumbar interbody fusion (TLIF) dos 07/18/24. Patient states she been pretty good. Patient states she is still doing PT and they are working her pretty hard. Patient has muscle soreness after PT. Patient states her left leg has been doing good no pain or numbness down her leg. Ortho Exam General General: Yes no acute distress Neurologic: Yes alert and Yes oriented x3 Spine Skin: Yes CDI and Yes healed SPINE TESTING CERVICAL THORACIC LUMBAR Musculoskeletal Strength 0=absent - 5=normal Details: Physical examination of the back shows well-healed and dry surgical incisions. Neurological exam of the lower extremity shows 5X5 power. Normal sensation across all dermatomes. Coding Level of Care Code Global Post Op Diagnoses Status post lumbar spinal fusion Z98.1 Assessment and Plan Assessment and Plan (1) Status post lumbar spinal fusion: Status: Acute Orders: Orders Lumbar Spine 2 or 3 Views Today Z98.1 - Arthrodesis status Plan X-rays done today in clinic show hardware and bone graft in good position. She is now 3 months out. At this point she can go back to lifting bending and twisting in a graduated fashion. She may continue physical therapy as appropriate. She will follow-up with us in July for her 1 year follow-up visit. Patient was in agreement. Plan Details Goals Barriers: Goals Decrease pain Decrease inflammation Improve ROM Barriers Lumbar DDD(L3,L4,L5) 10/10/24 0910 Date Mac Sethi Signature: Date (if applicable) CC: ALDO Mann [facility] 10-03-2024 [facility] Telephone (OBGYWM) VI VELA ([id number]) 1980 F Date Time Provider Department 10/03/24 DRAGAN PORTILLO OBGYWM During your visit today, we recorded the following information about you: Yue Ott RN 10/03/2024 1:48 PM Signed Patient had IUD removed yesterday. Calling today regarding her bleeding. Stated that her bleeding has been light since removal, but this afternoon she had a large gush with blood clots. Advised to continue to monitor and if heavy bleeding continues to call office back. Heavy bleeding precautions reviewed and when to call/be seen. No new pain/cramping. Asking if this is normal or if she needs to do anything else. LANIE Scruggs Rebecca L, MD 10/03/2024 1:52 PM Signed Likely some blood accumulated after removal and worked its way out all at once rather than trickling out slowly. If slowed down and not saturating a pad in an hour wouldn't be concerned. MD Meghana Velez Trisha, RN 10/03/2024 2:02 PM Signed Patient notified. Yue Ott RN Allergies As of Date: 10/03/2024 Noted Allergy Reaction MORPHINE 07/30/2014 9 - Itching Comments: Itchy skin on arms Date Reviewed: 10/02/2024 Reviewed by: Dragan Portillo MD - Fully Assessed Reason for Visit: Patient Question [5177] Prescriptions as of 10/03/2024 - methocarbamol (ROBAXIN) 500 mg tablet TAKE 1 AND 1/2 TABLETS BY MOUTH 3 TIMES A DAY NEEDED FOR PAIN/SPASMS - drospirenone, contraceptive, (SLYND) 4 mg (28) tabet Take 1 tablet by mouth once daily. - citalopram (CELEXA) 40 mg tablet Take 1 tablet by mouth once daily. - buPROPion XL (WELLBUTRIN XL) 150 mg 24 hr tablet take 1 tablet by mouth once daily DO NOT CRUSH, CHEW, AND/OR DIVIDE Problem List As Of Date 10/03/2024 Noted Resolved Female infertility [N97.9] 04/25/2015 12/01/2018 [...] Polyhydramnios in third trimester [O40.3XX0] 12/23/2020 04/09/2021 Migraine headache [G43.909] 07/11/2024 Encounter Status:Closed by YUE OTT on 10/03/24 [facility] CNOVon 10-02-2024 CNOV Office Visit (OBGYWM ) VI VELA ([id number]) 1980 F Date Time Provider Department 10/02/24 1:10 PM DRAGAN PORTILLO OBGYWEbony During your visit today, we recorded the following information about you: Blood pressure Weight 104/62 72.1 kg Dragan Portillo MD 10/02/2024 2:04 PM Signed Vi presents for removal of IUD due to pain and malpositioned IUD. UNIVERSAL PROTOCOL / SAFETY CHECKLIST Procedure to be Performed: IUD removal Sign In: A Moment of CARE was completed. Personnel directly involved with the procedure wore the appropriate PPE (Personal Protective Equipment). Patient/Surrogate Stated/Verified: PATIENT VERIFIED(optional for EMERGENT procedures): Patient name, Date of , Relevant allergies, and The intended procedure Time Out Communication: Intended patient and procedure match the source documents. Consent documented and matches the intended procedure. No implant(s) inserted. Sign Out: SIGN OUT (optional for EMERGENT procedures): No specimen collected. All instruments, equipment, possible retained foreign bodies accounted for. Post-procedure follow-up management communicated and Plan of Care Visit completed when applicable. PROCEDURE: Speculum placed in vagina, IUD string visualized and grasped with ring forceps. ASSESSMENT/PLAN: IUD removed without difficulty, intact, and patient tolerated procedure well. Contraception plans: n/a Reviewed pre-conception guidelines including folic acid supplementation, optimal timing of intercourse, avoidance of smoking, alcohol, exposure to environmental chemicals and need for evaluation if not within 12 months. Dragan Portillo MD Vi Vela is a 44 year old female who presents for problem visit for heavy menses, malpositioned IUD and endometriosis. HPI: 44 YOF w/ heavy menses, endometriosis, Pain mostly w/ menses. Feels IUD poking her and pain flares mostly w/ menses. 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: Sexual Activity: Yes; Male; bilateral [...] Brother Diabetes Maternal Grandmother Hypertension Maternal Grandmother Aneurysm Maternal Grandfather Heart Maternal Grandfather Colon Cancer Paternal Grandmother Cancer Paternal Grandfather Bone, Liver and Lung No Known Problems Daughter No Known Problems Son Breast Cancer Maternal Aunt 75 Social History Tobacco Use Smoking status: Former Current packs/day: 0.00 Types: Cigarettes Start date: 05/2002 Quit date: 2002 Years since quittin.8 Smokeless tobacco: Never Vaping Use Vaping status: Never Used Substance Use Topics Alcohol use: Yes Comment: social Drug use: No Current Outpatient Medications Medication Sig methocarbamol (ROBAXIN) 500 mg tablet TAKE 1 AND 1/2 TABLETS BY MOUTH 3 TIMES A DAY NEEDED FOR PAIN/SPASMS citalopram (CELEXA) 40 mg tablet Take 1 tablet by mouth once daily. buPROPion XL (WELLBUTRIN XL) 150 mg 24 hr tablet take 1 tablet by mouth once daily DO NOT CRUSH, CHEW, AND/OR DIVIDE drospirenone, contraceptive, (SLYND) 4 mg (28) tabet Take 1 tablet by mouth once daily. No current facility-administered medications for this visit. Allergies As of Date: 10/02/2024 Allergen Noted Reaction MORPHINE 07/30/2014 Itching Fully Assessed 10/02/2024 Allergies and current medication updated:Yes (more content not included)... Normal [facility] 09-15-2024 TIMN Telephone (OBGYWM) VI VELA ([id number]) 1980 F Date Time Provider Department 09/15/24 LISHA CASTANEDA During your visit today, we recorded the following information about you: Lisha Castaneda APRN.CNP 09/15/2024 8:02 AM Signed Please notify patient: RR out of office but reviewed ultrasound in absence. IUD malpositioned, recommend appt for removal and discussion of options to control endometriosis/symptom s with RR. Will need longer appt time. Ovarian cyst to left ovary noted, recommend repeat ultrasound in 6 months. Likely benign. THIAGO Belle Trisha, RN 09/15/2024 11:17 AM Signed Patient notified. Scheduled with RR for 30 min as advised below. Offered sooner appointment with another provider to remove IUD, but patient declined. States pain is very mild and intermittent and that she would call back if anything changes prior to her appt. She will call later date to schedule 6 month u/s. Yue Ott RN Allergies As of Date: 09/15/2024 Noted Allergy Reaction MORPHINE 07/30/2014 9 - Itching Comments: Itchy skin on arms Date Reviewed: 07/14/2024 Reviewed by: Dragan Portillo MD - Fully Assessed Reason for Visit: Results [95] Primary Visit Diagnosis:Ovarian cyst, left [N83.202] Other Visit Diagnosis:Encounter for IUD removal [Z30.432] Order(s):PELVIC US WHI [[id number]] Order #: [id number]: 1 FUTURE REMOVE INTRAUTERINE DEVICE [[id number]] Order #: [id number] Prescriptions as of 09/15/2024 - doxycycline monohydrate (MONODOX) 100 mg capsule Take 1 capsule by mouth two times a day for 10 days. - levonorgestrel (MIRENA) 21 mcg/24 hr (8 yrs) 52 mg IUD 1 Each by INTRAUTERINE route as directed. - citalopram (CELEXA) 40 mg tablet Take 1 tablet by mouth once daily. - segesterone ac-ethin estradiol (ANNOVERA) 0.15-0.013 mg/24 hour vaginal ring Use 1 Each vaginally as directed. Insert 1 ring vaginally. Following insertion, ring should remain in place for 24 continuous days, then removed for 4 days - buPROPion XL (WELLBUTRIN XL) 150 mg 24 hr tablet take 1 tablet by mouth once daily DO NOT CRUSH, CHEW, AND/OR DIVIDE - cholecalciferol (VITAMIN D3) 50 mcg (2,000 unit) tablet Take 1,000 Units by mouth once daily. Problem List As Of Date 09/15/2024 Noted Resolved Female infertility [N97.9] 04/25/2015 12/01/2018 [...] Polyhydramnios in third trimester [O40.3XX0] 12/23/2020 04/09/2021 Migraine headache [G43.909] 07/11/2024 Encounter Status:Closed by YUE OTT on 09/15/24 Normal [facility] US [facility] 09-14-2024 Indication Pelvic pain, Abnormal uterine bleeding Impression 3D rendering of the uterus demonstrates a malpositioned IUD with the device left arm is slightly in myometrium 4.9 mm. Caudal end of the IUD is on the right at the 45 degree angle of cx/uterus The contour of the uterus and the endometrial cavity were evaluated with 3-D imaging. 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 The uterus is anteverted and measures 74 mm x 39 mm x 47 mm. The endometrial thickness is 2 mm. The right ovary measures 16 mm x 12 mm x 8 mm. The left ovary measures 23 mm x 16 mm x 16 mm and contains a 23 mm x 16 mm x 16 mm bilocular cyst (single avascular septation) with smooth borders. This cyst also contains a daughter cyst. O-RADS 2 There is no free fluid visualized. Technique: Three dimensional imaging was created on a dedicated stand-alone 3D workstation with images created and archived, and supervised and reviewed by the interpreting physician utilizing images from a US Scan performed on . Recommendations O-RADS 2 ovarian lesion, non-simple cyst, almost certainly benign. Follow up ultrasound is recommended in 6 months. Recommend removal of the IUD. History General History Other: Embryo transfer date 01/31/2018, 5 days betw. fertilization/ embryo transfer, EDC by IVF 10/19/2018 Previous Outcomes Other: Mode of last delivery: vaginal delivery Menstrual History Contraception: Intrauterine contraceptive device. No regular periods with IUD but does have daily spotting Method Transabdominal, transvaginal, 3D ultrasound examination, Color Doppler examination. View: Adequate visualization Uterus Uterus: Visualized Uterus position: anteverted Description of uterine malformations: arcuate Myometrium: normal Endometrium: normal Cervix details: normal Uterus length 74 mm Uterus width 47 mm Uterus height 39 mm Uterus Vol 71.1 cm Endometrial thickness, total 2.0 mm Fibroids: No fibroids identified Polyps: No polyps identified IUCD Position control IUCD type: Mirena intrauterine system. Location: seen within the myometrium, Left arm is slightly in myometrium 4.9 mm Right Ovary Rt ovary: Visualized Rt ovary morphology: premenopausal normal follicular Rt ovary D1 16 mm Rt ovary D2 12 mm Rt ovary D3 8 mm Rt ovary Vol 0.8 cm Rt ovarian cyst(s): No cysts identified Left Ovary Lt ovary: Visualized Lt ovary D1 23 mm Lt ovary D2 16 mm Lt ovary D3 16 mm Lt ovary Vol 2.8 cm Lt ovarian cyst(s): Cysts identified Lt ovarian cyst D1 23 mm Lt ovarian cyst D2 16 mm Lt ovarian cyst D3 16 mm Lt ovarian cyst mean 18.3 mm Lt ovarian cyst vol 3.083 cm Lt ovarian cyst findings: Bilocular cyst (single avascular septation) with smooth borders Cul de Sac Visualized. no free fluid visualized Procedure To characterize the IUD and arcuate uterus, three dimensional imaging was created on a dedicated stand-alone 3D workstation with images created and archived, and supervised and reviewed by the interpreting physician utilizing images from an ultrasound scan performed today. Performed By: Ana M Betancourt RDMS Read By: Jackie Polanco M.D. MATERNAL MEDICINE [facility] US Pelvison 09-12-2024 Radiology Study observation (narrative) [facility] CNPNon 09-11-2024 CNPN Telephone (OBGYWM) VI VELA ([id number]) 1980 F Date Time Provider Department 09/11/24 DRAGAN PORTILLO OBGYWM During your visit today, we recorded the following information about you: Blanka Perez RN 09/11/2024 11:58 AM Signed Patient had IUD inserted on 07/14/24. Patient states that she has been bleeding nearly every day since the insertion. Enough that she needs a liner - which she usually wears a liner daily. Bright red to brown in color. On she noted the start of bladder irritation. When she presses on her abdomen above her pubic bone it's painful. Patient believes it's due to the IUD. She's feeling a little anxious since with her last IUD her uterus was punctured. Does not due month string checks. States she wasn't aware. Would you like a pelvic US to check location? LANIE Aguilar Rebecca L, MD 09/11/2024 1:00 PM Signed yes US and trial of doxy to see if helps pain/aub/inflammation due to IUD. MD Maia Velez Lindsey, RN 09/11/2024 2:05 PM Signed Patient notified and voiced understanding. Transferred to [facility] to schedule pelvic ultrasound. Belinda Robles RN Allergies As of Date: 09/11/2024 Noted Allergy Reaction MORPHINE 07/30/2014 9 - Itching Comments: Itchy skin on arms Date Reviewed: 07/14/2024 Reviewed by: Dragan Portillo MD - Fully Assessed Reason for Visit: IUD [60] Primary Visit Diagnosis:Pelvic pain in female [R10.2] Other Visit Diagnosis:Abnormal uterine bleeding (AUB) [N93.9] Order(s):PELVIC US WHI [[id number]] Order #: [id number]: 1 FUTURE doxycycline monohydrate (MONODOX) 100 mg capsuleTake 1 capsule by mouth two times a day for 10 days.Disp: 20 capsuleRfl: 0 Prescriptions as of 09/11/2024 - doxycycline monohydrate (MONODOX) 100 mg capsule Take 1 capsule by mouth two times a day for 10 days. - levonorgestrel (MIRENA) 21 mcg/24 hr (8 yrs) 52 mg IUD 1 Each by INTRAUTERINE route as directed. - citalopram (CELEXA) 40 mg tablet Take 1 tablet by mouth once daily. - segesterone ac-ethin estradiol (ANNOVERA) 0.15-0.013 mg/24 hour vaginal ring Use 1 Each vaginally as directed. Insert 1 ring vaginally. Following insertion, ring should remain in place for 24 continuous days, then removed for 4 days - buPROPion XL (WELLBUTRIN XL) 150 mg 24 hr tablet take 1 tablet by mouth once daily DO NOT CRUSH, CHEW, AND/OR DIVIDE - cholecalciferol (VITAMIN D3) 50 mcg (2,000 unit) tablet Take 1,000 Units by mouth once daily. Problem List As Of Date 09/11/2024 Noted Resolved Female infertility [N97.9] 04/25/2015 12/01/2018 [...] Polyhydramnios in third trimester [O40.3XX0] 12/23/2020 04/09/2021 Migraine headache [G43.909] 07/11/2024 Prescriptions ordered this encounter Disp Refills Start End DOXYCYCLINE MONOHYDRATE 100 MG CAPSU* 20 c* 0 09/11/2024 09/21/2024 Route: ORAL Sig: Take 1 capsule by mouth two times a day for 10 days. Encounter Status:Closed by BELINDA ROBLES on 09/11/24 Normal [facility] Lumbar Spine 2 or 3 Viewson 08-31-2024 Lumbar Spine 2 or 3 Views [facility] [address] [place] [address] Lumbar Spine 2 or 3 Views MR#: [id number] Acct: [id number] Name: VI VELA Rep #: [id number] : 1980 F 44 From: Osvaldo Pride PCP: ALDO Scruggs Status: DEP AMB Study: Lumbar Spine 2 or 3 Views Date of Exam: Exam# [id number] Ordering Dr: Bertha Conklin [id number] INDICATION: s/p lumbar fusion -- upright AP and LAT EXAMINATION/TECHNIQUE : X-RAY - XR Spine Lumbar 2 or 3 Views COMPARISON: 08.03.24 __ FINDINGS: VERTEBRAE: Spinal fusion cage at L5-S1. Spinal fixation hardware at L5-S1. Hardware appears intact. No fracture. No spondylolisthesis. Preservation of the normal lumbar lordosis. No significant facet arthropathy. DISCS: Disc spaces are maintained. INCLUDED ABDOMEN: Included bowel gas pattern is non-obstructive. RAD/Lumbar Spine 2 or 3 Views IMPRESSION: No evidence of lumbar spinal fracture or spondylolisthesis. Electronically Signed: Osvaldo Perera MD at 19:26 EDT , CC: ALDO Mann; DEE Hogan Operations Engineer: Signed Normal [facility] Orthopedic Visit Reporton Orthopedic Visit Report [facility] [place] [address] OFFICE VISIT Date of Service: 08/31/24 MR#: [id number] Acct: [id number] Name: VI VELA Rep #: [id number] : 1980 Provider: Dr. Mac Mcintyre MD Age/Sex: 44/F Location: [facility].SHELLI Status: Signed Intake Vital Signs 07/18/24 18:25 08/03/24 09:59 Height 5 ft 4 in 5 ft 4 in Intake Visit Reasons: LUMBAR SPINE Chief Complaint: Low back pain Allergies morphine Adverse Reaction (Verified 08/03/24 09:32) Itching Medications ???Medication ???Instructions ???Recorded ???Confirmed ???Type cholecalciferol (vitamin D3) 25 25 mcg PO DAILY 04/24/21 08/03/24 History mcg (1,000 unit) chewable tablet (Vitamin D3) citalopram 40 mg tablet 40 mg PO DAILY 04/24/21 08/03/24 History bupropion HCl 150 mg 24 hr tablet, 150 mg PO QDAY 05/05/24 08/03/24 History extended release acetaminophen 500 mg tablet 500 mg PO Q6H #30 tabs 07/19/24 08/03/24 Rx meloxicam 15 mg tablet 15 mg PO DAILY #30 tabs 07/19/24 08/03/24 Rx methocarbamol 500 mg tablet 750 mg (1.5 x 500 mg) PO TID PRN 08/03/24 08/03/24 Rx spasms/pain #30 tabs PFSH Medical History COVID Wears hearing aid Loss of hearing Depression Restless legs History of chemical tubal occlusion Wears glasses Wears contact lenses Anxiety Alcohol use Back pain Injury of back Former smoker History of herniated intervertebral disc Stomach ulcer Surgical History History of hysteroscopy History of tonsillectomy and adenoidectomy Hx of laparoscopy History of foot surgery History of delivery Family History Other Alcoholism CVA (cerebral vascular accident) Heart disease Osteoporosis Thyroid disorder Social History Smoking Status: Former smoker alcohol intake: current alcohol intake frequency: holidays/special occasions only substance use type: does not use what type of physical activity do you participate in: yoga frequency: 3-4 times per week HPI LUMBAR SPINE Details: This documentation accurately reflects the service provided and the decisions made by me, Dr. Mac Mcintyre MD 08/31/24 0759. Part of today???s visit was documented by Aurora MILLER and Bertha PRICE, acting as scribe. VI VELA is a 44 year old F here today for 6 week post-op L5-S1 transforaminal lumbar interbody fusion (TLIF) dos 07/18/24. She states that she is doing well. She did have a set back last week from stretching too much which she then iced and rested and that has now gotten better. Says that she was on her hands and knees cleaning when she reached to far forward. She is in physical therapy. She does still have the left sided sciatic pain but that is now off an on. She did not have any sciatic pain prior to surgery. She takes Tylenol and the methocarbamol if needed for pain. Ortho Exam General General: Yes no acute distress Neurologic: Yes alert and Yes oriented x3 Spine Skin: Yes CDI and Yes healed SPINE TESTING CERVICAL THORACIC LUMBAR Musculoskeletal Strength 0=absent - 5=normal Details: Physical examination of the back shows well-healed and dry surgical incisions. Neurological exam of the lower extremity shows 5X5 power. Normal sensation across all dermatomes. Passive straight leg raise is negative on left. Some mild left sided tenderness over incision. Coding Level of Care Code Global Post Op Diagnoses Status post lumbar spinal fusion Z98.1 Assessment and Plan Assessment and Plan (1) Status post lumbar spinal fusion: Status: Acute Orders: Orders Lumbar Spine 2 or 3 Views Today Z98.1 - Arthrodesis status Plan Obtained and reviewed x-rays today with the patient. X-rays show bone graft and hardware in good position. Patient is now 6 weeks postop L5-S1 TLIF. She has continued to do well with physical therapy and they are trying to increase her stretching. This left sided leg pain that she is having has improved and discussed that this pain will continue to heal. 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 She will follow up in 6 weeks for a month follow up. Patient is in agreement. 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 [place] [address] / REHABILITATION SERVICES INITIAL EVALUATION MR#: [id number] Acct: [id number] Name: VI VELA Rep #: [id number] : 1980 43 From: Cindy Agarwal PT. MD Hogan, OCS Referring Dr.: DEE Hogan Status: REG RCR Insurance: [employer] S[employer]ANCE Patient's Visit Information Visit Information Visit Information: VI VELA is a 43 year old F referred to Physical Therapy by DEE Hogan with a diagnosis of ARTHRODESIS ,LUMBAR. Date of Evaluation: 08/11/24 Physical Therapist: George Mccarthy PT, Cert T, OCS Visit Plan Frequency: 2x /Week Duration: 4 Weeks Plan: S/P LUMBAR FUSION 07/04/24 PT INTERVENTIONS DLS ,POSTURAL EX'S LE FLEXABILITY ,FUNCTIONAL STRENGTHENING AND ACTIVITY MODIFICATION Subjective Subjective: This 43 y/o male presents to physical therapy with s/p lumbar fusion on 07/18/24 at [facility] by DR Mcintyre consisted L5-S1 transforaminal lumbar interbody fusion (TLIF), minimally invasive left side approach, percutaneous pedicle screw instrumentation. L5-S1 posterior spinal fusion and interbody fusion L5-S1 posterior pedicle screw instrumentation , L5-S1 insertion of cage, Local autograft. Patient was d/c next day. No BLT and lifting restriction gallon milk. Patient seen PA last week and x-rays looked good and RTD in 3 weeks. Medication stopped oxycodone ,but cont with muscle relaxer. Pain affects sleeping.Aggravating factors in morning . Patient doing okay standing/walking. Coughing/sneezing guarded. Bowel/bladder- . Patient had mild tingling. Prior to PT tried water but unable to emmanuel ,pain management ,massage and chiropractor. Patient condition affects QOL and function/ Patient return to prior level of function and RTW Aug 29. SOCAIL: VOCATION: [employer] Objective Objective: POSTURE: mild forward posture GAIT: reciprocal pattern SKIN: incision well approximate FLEXABILITY: hamstrings min tight LUMBAR ROM: flexion mod loss ,extension mod loss ,side min/mod loss MMT: quads/hams 4/5 ,hip flexion 4-/5 ,ankle 5/5 Special Tests L/S Slump test left side: Negative L/S Slump test right side: Negative L/S Left Straight Leg Raise: Negative L/S Right Straight Leg Raise: Negative Balance/Special Test Scores Oswestry Low Back Score: 24 Goals Goal 1:: Patient to be I with HEP for lumbar Goal Time Frame: 4-6 Weeks Goal 2:: Patient to improve lumbar ROM for function of recovery for ADLS and housework task Goal Time Frame: 4-6 Weeks Goal 3:: Patient to improve back oswestry score by 5 points to improve QOL and function Goal Time Frame: 4-6 Weeks Goal 4:: Patient to demonstrate 75% improvement with less pain and improved function Goal Time Frame: 4-6 Weeks Goal 5:: Patient to RTW and and housework tasks with no limitations Goal Time Frame: 4-6 Weeks Rehabilitation Potential Physical Therapy Diagnosis: Patient underwent s/p lumbar fusion with weakness ,impaired function /endurance ,decrease lumbar ROM thus benefit from skilled PT Rehabilitation Potential: Good Anticipated Interventions Patient/Client Instruction: Educate patient on: Condition and Plan of Care For the Purpose of:: To decrease pain, To increase ROM, To improve ability to perform ADL's, To increase tolerance to activity/condition/po sition, To improve ability of physical actions for home/community/work/l eisure, To improve health of tissue, To decrease soft tissue restriction, To increase flexibility/ROM, To improve balance and To improve tolerance to ADL's Therapeutic Exercise to Include: Strength training, Body mechanics, Postural training, Flexibilty training and Dynamic Lumbar Stabilization For the Purpose of:: To decrease pain, To increase ROM, To improve muscle performance and motor function, To increase tolerance to activity/condition/po sition, To improve ability of physical actions for home/community/work/l eisure, To improve health of tissue, To decrease soft tissue restriction, To increase flexibility/ROM and To reduce risk of recurrence Text: Thank you for the opportunity to evaluate your patient. For Medicare and Medicare HMO plans, please review the plan of care and approve it. It will need to be FAXED BACK to us at [phone] for Medicare purposes. For Medicare only, by signing this I certify the plan of care. Please let me know if there are questions or concerns regarding this plan of care. Physician Signature: Date : 08/14/24 1554 CC: ALDO Mann; DEE Hogan CAL Signed Normal [facility] Lumbar Spine 2 or 3 Viewson 08-03-2024 Lumbar Spine 2 or 3 Views [facility] [address] [place] [address] Lumbar Spine 2 or 3 Views MR#: [id number] Acct: [id number] Name: VI VELA Rep #: [id number] : 1980 F 43 From: Marycruz allen MD PCP: ALDO Scruggs Status: DEP AMB Study: Lumbar Spine 2 or 3 Views Date of Exam: Exam# [id number] Ordering Dr: Bertha Conklin [id number] INDICATION: Postop lumbar fusion -- Please do upright AP and LAT EXAMINATION/TECHNIQUE : X-RAY - XR Spine Lumbar 2 or 3 Views COMPARISON: 07/19/2024. __ FINDINGS: VERTEBRAE: Preserved vertebral body height. No fracture. No spondylolisthesis. Preservation of the normal lumbar lordosis. No significant facet arthropathy. Status post posterior fusion L5-S1 with interbody disc spacer. DISCS: Disc spaces are maintained. INCLUDED ABDOMEN: Included bowel gas pattern is non-obstructive. RAD/Lumbar Spine 2 or 3 Views IMPRESSION: No evidence of lumbar spinal fracture or spondylolisthesis. Status post posterior fusion L5-S1 with interbody disc spacer and without complications. Electronically Signed: Marycruz Gee MD at 16:57 EDT , CC: ALDO Mann; DEE Hogan Operations Engineer: Signed Normal [facility] Orthopedic Visit Reporton Orthopedic Visit Report [facility] [address] [place] [address] OFFICE VISIT Date of Service: 08/03/24 MR#: [id number] Acct: [id number] Name: VI VELA Rep #: [id number] : 1980 Provider: DEE Hogan Age/Sex: 43/F Location: [facility]LL[facility] Status: Signed Intake Vital Signs 05/05/24 08:24 07/18/24 18:25 Height 5 ft 4 in 5 ft 4 in Intake Visit Reasons: lumbar spine Chief Complaint: Low back pain Allergies morphine Adverse Reaction (Verified 08/03/24 09:32) Itching Medications ???Medication ???Instructions ???Recorded ???Confirmed ???Type cholecalciferol (vitamin D3) 25 25 mcg PO DAILY 04/24/21 08/03/24 History mcg (1,000 unit) chewable tablet (Vitamin D3) citalopram 40 mg tablet 40 mg PO DAILY 04/24/21 08/03/24 History bupropion HCl 150 mg 24 hr tablet, 150 mg PO QDAY 05/05/24 08/03/24 History extended release acetaminophen 500 mg tablet 500 mg PO Q6H #30 tabs 07/19/24 08/03/24 Rx meloxicam 15 mg tablet 15 mg PO DAILY #30 tabs 07/19/24 08/03/24 Rx oxycodone 5 mg tablet 2.5 - 5 mg (0.5 - 1 x 5 mg) PO Q6H 07/19/24 08/03/24 Rx PRN pain 7 days #28 tabs sennosides 8.6 mg-docusate sodium 2 tab PO BID PRN constipation #30 07/19/24 08/03/24 Rx 50 mg tablet (Stimulant Laxative tabs Plus) methocarbamol 500 mg tablet 750 mg (1.5 x 500 mg) PO TID PRN 08/03/24 08/03/24 Rx spasms/pain #30 tabs PFSH Medical History COVID Wears hearing aid Loss of hearing Depression Restless legs History of chemical tubal occlusion Wears glasses Wears contact lenses Anxiety Alcohol use Back pain Injury of back Former smoker History of herniated intervertebral disc Stomach ulcer Surgical History History of hysteroscopy History of tonsillectomy and adenoidectomy Hx of laparoscopy History of foot surgery History of delivery Family History Other Alcoholism CVA (cerebral vascular accident) Heart disease Osteoporosis Thyroid disorder Social History Smoking Status: Former smoker alcohol intake: current alcohol intake frequency: holidays/special occasions only substance use type: does not use what type of physical activity do you participate in: yoga frequency: 3-4 times per week HPI lumbar spine Details: This documentation accurately reflects the service provided and the decisions made by , DEE Hogan 08/03/24923. Part of today???s visit was documented by Aurora MILLER, acting as scribe. VI VELA is a 43 year old F here today for s/p L5-S1 transforaminal lumbar interbody fusion (TLIF) dos 07/18/24. She states that she is doing well and that she is out of the muscle relaxer but would like a refill. She has not had to use any ambulatory devices. She does states that she has some left sciatic nerve pain that she didn't have before surgery that extends down the back of her leg into her anterior fink. This pain does improve with walking and with stretching her legs with the pain worse in the morning and then improving gradually throughout the day. She feels like since the surgery this has gradually improved. She does take half an oxycodone at night before bed and during the day take Tylenol and Meloxicam. She feels like she does not need to take the oxycodone at night if she gets a refill on the methocarbamol. She has not started physical therapy yet. Ortho Exam General General: Yes no acute distress Neurologic: Yes alert and Yes oriented x3 Spine Skin: Yes CDI and Yes healed SPINE TESTING CERVICAL THORACIC LUMBAR Musculoskeletal Strength 0=absent - 5=normal Details: Physical examination of the back shows well-healed and dry surgical incisions. Band-Aids were removed. Neurological exam of the lower extremity shows 5X5 power. Normal sensation across all dermatomes. Coding Level of Care Code Global Post Op Diagnoses Status post lumbar spinal fusion Z98.1 Assessment and Plan Assessment and Plan (1) Status post lumbar spinal fusion: Status: Acute Orders: Orders Lumbar Spine 2 or 3 Views Today Z98.1 - Arthrodesis status Referrals Physical Therapy Referral Z98.1 - Arthrodesis status Medications: Refilled methocarbamol 750 mg (1.5 x 500 mg) PO TID PRN 30 tabs 0RF spasms/pain Plan Obtained and reviewed x-rays today with the patient. X-rays show bone graft and hardware in good position. Patient is now 2 weeks postop L5-S1 TLIF. She is doing well with minimal pain. She will begin physical therapy at [facility]. Since her left leg pain improves with movement and stretching (more content not included)... Normal [facility] Basic Metabolic Profile (BMP )on 07-19-2024 BUN/CRE 9.6 RATIO Low 10-20 [facility] Comment on above: Performed By: #### L 500.2500, L100.0500 ####[facility] [address] [place], [address] CA,Total 8.1 mg/dL Low 8.5-10.1 [facility] Comment on above: Performed By: #### L 500.2500, L100.0500 ####[facility] [address] [place], [address] Chloride [Moles/Vol] 107 mmol/L Normal 98-107 [facility] Comment on above: Performed By: #### L 500.2500, L100.0500 ####[facility] [address] [place], [address] CO2 [Moles/Vol] 27.0 mmol/L Normal 21.0-32.0 [facility] Comment on above: Performed By: #### L 500.2500, L100.0500 ####[facility] [address] [place], [address] Creatinine [Mass/Vol] 0.83 mg/dL Normal 0.55-1.02 [facility] Comment on above: Result Comment: The validity of the calculated GFR GFRAA in patients over 70 years has not been determined. Clinical correlation is essential. Performed By: #### L 500.2500, L100.0500 ####[facility] [address] [place], [address] ECRCL 85.92 ml/min Normal [facility] Comment on above: Performed By: #### L 500.2500, L100.0500 ####[facility] [address] [place], [address] EST GFR - AA 97 mL/min Normal >60 [facility] Comment on above: Result Comment: Afri can Bahraini GFR Calc Performed By: #### L 500.2500, L100.0500 ####[facility] [address] [place], [address] GAP 4 Low 5-15 [facility] Comment on above: Performed By: #### L 500.2500, L100.0500 ####[facility] [address] [place], [address] GFR/1.73 sq M.predicted among non-blacks MDRD (S/P/Bld) [Vol rate/Area] 80 mL/min/{1.73_m2} Normal >60 [facility] Comment on above: Result Comment: Non- GFR Calc Performed By: #### L 500.2500, L100.0500 ####[facility] [address] [place], [address] Glucose [Mass/Vol] 119 mg/dL High 74-106 [facility] Comment on above: Result Comment: Fast ing Glucose result from 100 to 125 mg/dL suggests IMPAIRED HOMEOSTASIS per A.D.A. criteria. Performed By: #### L 500.2500, L100.0500 ####[facility] [address] [place], [address] Potassium [Moles/Vol] 3.8 mmol/L Normal 3.5-5.1 [facility] Comment on above: Performed By: #### L 500.2500, L100.0500 ####[facility] [address] [place], [address] Sodium [Moles/Vol] 138 mmol/L Normal 136-145 [facility] Comment on above: Performed By: #### L 500.2500, L100.0500 ####[facility] [address] [place], [address] Urea nitrogen [Mass/Vol] 8 mg/dL Normal 7-18 [facility] Comment on above: Performed By: #### L 500.2500, L100.0500 ####[facility] [address] [place], [address] CBC-Complete Blood Cnt No Akanksha child 07-19-2024 Erythrocyte distribution width (RBC) [Ratio] 13.7 % Normal 11.6-14.6 [facility] Comment on above: Performed By: #### L 500.2500, L100.0500 ####[facility] [address] [place], [address] Hematocrit (Bld) [Volume fraction] 31.6 % Low 37-47 [facility] Comment on above: Performed By: #### L 500.2500, L100.0500 ####[facility] [address] [place], [address] Hemoglobin (Bld) [Mass/Vol] 10.1 g/dL Low 12.0-15.0 [facility] Comment on above: Performed By: #### L 500.2500, L100.0500 ####[facility] [address] [place], [address] MCH (RBC) [Entitic mass] 28.1 pg Normal 27.0-32.0 [facility] Comment on above: Performed By: #### L 500.2500, L100.0500 ####[facility] [address] [place], [address] MCHC (RBC) [Mass/Vol] 32.0 g/dL Normal 32-36 [facility] Comment on above: Performed By: #### L 500.2500, L100.0500 ####[facility] [address] [place], [address] MCV (RBC) [Entitic vol] 88.0 fL Normal 81-99 [facility] Comment on above: Performed By: #### L 500.2500, L100.0500 ####[facility] [address] [place], [address] Platelet mean volume (Bld) [Entitic vol] 10.9 fL Normal 6.2-12.0 [facility] Comment on above: Performed By: #### L 500.2500, L100.0500 ####[facility] [address] [place], [address] Platelets (Bld) [#/Vol] 260 10*3/uL Normal 150-450 [facility] Comment on above: Performed By: #### L 500.2500, L100.0500 ####[facility] [address] [place], [address] RBC (Bld) [#/Vol] 3.59 10*6/uL Low 4.2-5.4 [facility] Comment on above: Performed By: #### L 500.2500, L100.0500 ####[facility] [address] [place], [address] RDW SD 44.2 fl High 35.1-43.9 [facility] Comment on above: Performed By: #### L 500.2500, L100.0500 ####[facility] [address] [place], [address] WBC (Bld) [#/Vol] 10.5 10*3/uL Normal 4.4-11.0 [facility] Comment on above: Performed By: #### L 500.2500, L100.0500 ####[facility] [address] [place], [address] Lumbar Spine 2 or 3 Viewson 07-19-2024 Lumbar Spine 2 or 3 Views [facility] Imaging Services [address] [place] [address] Lumbar Spine 2 or 3 Views MR#: [id number] Acct: [id number] Name: VI VELA Rep #: [id number] : 1980 F 43 From: Tavia Alexander MD PCP: ALDO Scruggs Status: ADM LISSA Study: Lumbar Spine 2 or 3 Views Date of Exam: Exam# [id number] Ordering Dr: Bertha Conklin [id number] STUDY: X-RAY - LUMBAR SPINE REASON FOR EXAM: Female, 43 years old. Status post lumbar fusion. Follow-up. TECHNIQUE: 2 view(s) of the lumbar spine were obtained. COMPARISON: Postoperative evaluation July 18, 2024 and prior lumbar spine x-rays January 20, 2024 FINDINGS: Normal lumbar lordosis. No scoliosis. Normal vertebral alignment. Stable mild diffuse lower thoracic and lumbosacral facet sclerosis. Posterior fusion at L5-S1 with intervertebral disc prosthesis unchanged from the immediate postsurgical images. No complications identified. Phleboliths. RAD/Lumbar Spine 2 or 3 Views IMPRESSION: Stable L5-S1 fusion without complications Electronically Signed: Tavia Alexander MD at 11:40 EDT , CC: ALDO Mann; DEE Hogan Operations Engineer: Signed Normal [facility] Bedside Glucoseon 07-18-2024 FINGERSTICK GLU 142 mg/dL High 74-106 [facility] Comment on above: Result Comment: TAD GEMENT OF PATIENT CARE PER NURSING PROTOCOL Performed By: #### L 501.080 #### [facility] [address] [place], [place], [address] FINGERSTICK GLU 71 mg/dL Low 74-106 [facility] Comment on above: Result Comment: TAD GEMENT OF PATIENT CARE PER NURSING PROTOCOL Performed By: #### L 501.080 #### [facility] [address] [place], [place], [address] Consultation - Hospitaliston 07-18-2024 Consultation - Hospitalist [facility] Medical Records Department [address] [place] [address] Consultation - Hospitalist 07/18/24 192 MR#: [id number] Acct: [id number] Name: VI VELA Rep #: [id number] : 1980 43 From: Patti Mendoza MD PCP: Dolores Mann, TEXTILE MACHINERY INSTRUCTOR-C Status:REG [place] Location: MS3 WE554-0 Assessment Plan Assessment/Plan (1) Herniation of lumbar intervertebral disc with radiculopathy: (2) Spondylolisthesis, lumbar region: PLAN: Plan #Spinal stenosis s/p L5-S1 transforaminal lumbar interbody fusion * today is POD 1. * management as per primary team spinal surgery * PT./OT on board * incentive spirometry * pain management as per primary team * #Depression: on citalopram and bupropion. DVT prophylaxis: as per primary service Thank you for the courtesy of the consult. We will continue to follow with you. HPI Consult Data Date of Consult: 07/18/24 HPI Narrative Reason for Consultation: back pain HPI Narrative: VI VELA, is a 43 F with a PMH as outlined who was admitted to the service of orthopedic surgery with a complaint of low back pain that radiated to the left lower extremity. Imaging done showed L5-S1 disc degeneration with bilateral lateral recess and foraminal stenosis. She had nonoperative treatment which was unsuccessful, so she elected to have surgical decompression and fusion. She had L5-S1 transforaminal lumber interbody fusion on 07/18/2024. Hospitalist service was consulted for medical management. Patient seen and examined. Pain was well controlled. She had no active complaints. Review of systems was otherwise negative. [facility] Medical History COVID Wears hearing aid Loss of hearing Depression Restless legs History of chemical tubal occlusion Wears glasses Wears contact lenses Anxiety Alcohol use Back pain Injury of back Former smoker History of herniated intervertebral disc Stomach ulcer Home Medications ???Medication ???Instructions ???Recorded ???Last Taken ???Type ibuprofen 600 mg tablet 600 mg PO Q6H PRN PRN Pain Score 12/29/20 Unknown Rx 1-3 #30 tabs cholecalciferol (vitamin D3) 25 25 mcg PO DAILY 04/24/21 07/17/24 History mcg (1,000 unit) chewable tablet (Vitamin D3) citalopram 40 mg tablet 40 mg PO DAILY 04/24/21 07/17/24 History bupropion HCl 150 mg 24 hr tablet, 150 mg PO QDAY 05/05/24 07/17/24 History extended release tizanidine 2 mg tablet 2 mg PO QHS PRN muscle spasticity 05/05/24 07/12/24 History Allergy/AdvReac Type Severity Reaction Status Date / Time morphine AdvReac Itching Verified 07/18/24 06:05 Family History Other Alcoholism CVA (cerebral vascular accident) Heart disease Osteoporosis Thyroid disorder Surgical History History of hysteroscopy History of tonsillectomy and adenoidectomy Hx of laparoscopy History of foot surgery History of delivery Social History Smoking Status: Former smoker alcohol intake: current alcohol intake frequency: holidays/special occasions only substance use type: does not use what type of physical activity do you participate in: yoga frequency: 3-4 times per week ROS Constitutional Constitutional: Denies anorexia, chills, fatigue, fever(s), malaise or weakness Eyes Eyes: Denies change in vision ENT HEENT: Denies dysphagia or headache(s) Cardiovascular Cardiovascular: Denies chest pain, dyspnea on exertion, edema, lightheadedness, orthopnea, palpitations, paroxysmal nocturnal dyspnea, rapid heart rate or syncope Respiratory/Chest Respiratory/Chest: Denies cough, dyspnea, shortness of breath at rest or shortness of breath with exertion Gastrointestinal Gastrointestinal: Denies abdominal pain, constipation, diarrhea, nausea or vomiting Genitourinary Genitourinary: Denies burning urination or dysuria Musculoskeletal Musculoskeletal: Reports back pain; Denies arthralgias or joint stiffness Neurologic Neurologic: Denies confusion, disequilibrium, dizziness, focal weakness, headache(s), numbness, seizure-like activity, seizures or syncope Psychiatric Psychiatric: Denies anxiety Physical Exam Const alert, oriented x3 and no apparent distress General Appearance: cooperative HEENT normocephalic, head/scalp atraumatic, moist oral mucous membranes and oropharynx normal Mouth: oral and palatal mucosa normal Eyes PERRL, EOMs intact bilaterally and conjunctivae normal Neck no lymphadenopathy and supple Resp normal respiratory effort, no use of accessory muscles and clear to auscultation bilaterally Cardio regular rate, regular rhythm, S1 bowen (more content not included)... Normal [facility] Lumbar Spine 2 or 3 Viewson 07-18-2024 Lumbar Spine 2 or 3 Views [facility] Imaging Services [address] [place], [place] [id number] Lumbar Spine 2 or 3 Views MR#: [id number] Acct: [id number] Name: VI VELA Rep #: [id number] : 1980 F 43 From: Tavia Alexander MD PCP: ALDO Scruggs Status: [facility] Study: Lumbar Spine 2 or 3 Views Date of Exam: Exam# [id number] Ordering Dr: Mac Mcintyre MD [id number] STUDY: X-RAY - LUMBAR SPINE REASON FOR EXAM: Female, 43 years old. Intraoperative digital documentation views of the L4-5 fusion. TECHNIQUE: 6 intraoperative digital documentation view(s) of the lumbar spine were obtained. COMPARISON: Lumbar spine x-rays dated January 20, 2024 FINDINGS: 6 intraoperative digital documentation views show L4-5 fusion. RAD/Lumbar Spine 2 or 3 Views IMPRESSION: Intraoperative digital documentation views as described. Electronically Signed: Tavia Alexander MD at 10:46 EDT , CC: ALDO Mann; Dr. Mac Mcintyre MD Operations Engineer: Signed [facility] MR/POSTOP.ANEon 07-18-2024 MR/POSTOP.[facility] Medical Records Department [address] [facility] [place] [address] Anesthesia Postop Eval I 07/18/24 1158 MR#: [id number] Acct: [id number] Name: VI VELA Rep #: [id number] : 1980 43 From: Adwoa Jacinto CRNA PCP: ALDO Scruggs Status:REG SDC Y Race: C Location: [place] [address] Anesthesia: Postop Eval I Current Vital Signs Temperature: 97.1 F Pulse Rate: 104 Blood Pressure: 110/75 Respiratory Rate: 12 Pulse Ox: 96 Oxygen Delivery Method: Simple Mask Oxygen Flow Rate (L/min): 10 Assessment Airway patent: Yes Spontaneous unlabored respirations: Yes Mental status: Asleep (nasal trumpet placed) nausea: No Vomiting: No Anesthesia Complication: No Fluid Hydration Crystalloid volume administer (ml): 1,400 Total IV fluid infused: 1,400 Progress Note Anesthesia document: Postop Eval 1 completed: Yes 07/18/24 1159 Date Adwoa Jacinto RAD TECH Cosigner Signature: Date CC: Signed [facility] MR/[id number] 07-18-2024 MR/POSTOPAN2 [facility] Medical Records Department [address] [place] [address] Anesthesia Postop Eval II 07/18/24 1235 MR#: [id number] Acct: [id number] Name: ARASHMickieVIMIKE RAMIREZ Rep #: [id number] : 1980 43 From: Alejandro Jarrett MD PCP: Dolores Mann TEXTILE MACHINERY INSTRUCTOR-C Status:REG SDC Y Race: C Location: [address] Anesthesia Postop Eval I Sum Postop Eval Completion status Anesthesia document: Postop Eval 1 completed: Yes Anesthesia Postop Eval I Summary Anesthesia Postop Eval I Summary: Anesthesia Postop Eval I: Assessment Summary Airway patent Yes 07/18/24 11:59 RAD TECH.SKOBY Spontaneous unlabored Yes 07/18/24 11:59 RAD TECH.SKOBY respirations Mental status Asleep - nasal 07/18/24 11:59 RAD TECH.SKOBY trumpet placed nausea No 07/18/24 11:59 RAD TECH.SKOBY Vomiting No 07/18/24 11:59 RAD TECH.SKOBY Anesthesia Postop Eval I: Fluid Summary Crystalloid volume administer 1,400 07/18/24 11:59 RAD TECH.SKOBY (ml) Colloids volume administered ( ml) Blood Product volume administered (ml) Total IV fluid infused 1,400 07/18/24 11:59 RAD TECH.SKOBY Anesthesia Postop Eval I: Summary Notes Anesthesia Complication No 07/18/24 11:59 RAD TECH.SKOBY Anesthesia Complication Comment: Post-operative progress note Anesthesia: Postop Eval II Evaluation Mental status: Awake and Calm Pain Level: 1 nausea: No Vomiting: No Complications Anesthesia Complication: No 07/18/24 1236 Date Alejandro Jarrett MD Cosigner Signature: Date CC: Signed Normal [facility] Operative Reporton 4 Operative Report [facility] Medical Records Department [address] [place] [address] Operative Report 07/18/24 1118 MR#: [id number] Acct: [id number] Name: VI VELA Rep #: [id number] : 1980 43 From: Mac Mcintyre MD PCP: TOM ScruggsC Status:REG [place] Location: [place] [address] Report of Operation Date of Procedure: 07/18/24 Description of Surgical Findings:: Preoperative diagnosis: L5-S1 disc degeneration with foraminal stenosis Postoperative diagnosis: Same Name of procedure: L5-S1 transforaminal lumbar interbody fusion (TLIF), minimally invasive left side approach, percutaneous pedicle screw instrumentation. . L5-S1 posterior spinal fusion and interbody fusion ??? L5-S1 posterior pedicle screw instrumentation . L5-S1 insertion of cage . Local autograft . Cancellous allograft with DBX Attending Surgeon: Dr. Mac Mcintyre Estimated blood loss: 25 mL Anesthesia: GA Complications: None Implants: [employer] Synthes X-PAC TLIF cage, Viper prime screws Indications: Patient is a 43-year-old lady who has had a history of low back pain that radiates into left lower extremity. X-rays and MRI revealed L5-S1 disc degeneration with bilateral lateral recess and foraminal stenosis. Patient was explained all options of treatment which included continued nonoperative treatment measures like rest physical therapy, epidural steroidal injections. After a prolonged period of of nonoperative treatment, patient elected to undergo surgical decompression fusion since the symptoms severely affected her quality of life. All risks and benefits associated with the procedure were explained to the patient. The risks include but are not limited to infection, bleeding, injury to nerves and vessels, persistent paresthesia, persistent pain, dural tear, need for further procedures, adjacent segment degeneration, pseudoarthrosis, hardware failure, etc. Procedure: The patient was identified in the preoperative holding suite using unique patient identifiers. Skin was marked, consent was reviewed, and all questions were answered. The patient was then brought back to the operative room. A surgical timeout was performed to make sure correct procedure was being done on the correct patient and all operative room staff were on the same page. General endotracheal anesthesia was then given to the patient. Neuromonitoring leads were applied. The patient was then turned prone onto a Augie table. The back was prepped and draped in usual fashion. IV antibiotic was given as preoperative antibiotic. A final timeout was then again done just before starting the procedure. C-arm AP view was then taken. C-arm was positioned in a way that L5 was centralized and superior endplate of L5 and was parallel to the beam. Spinous process was centered between the pedicles. Midline was marked with skin marker and lateral borders of the pedicles were also marked. Skin marker was also utilized to jeremy transversely across the middle of the pedicles at L5. 2 vertical incisions about 1 inch Extending below this line were taken about 1/2 inch lateral to the pedicle line. The fascia was also incised vertically approximately the same length. Finger dissection was utilized to palpate the superior articular process and facet joint of L5-S1 on the left side. Sequential tubes were docked on the Left L5-S1 facet joint and 70 mm length and 21 mm diameter tubular retractor was then placed and was attached to the arm attached to the OR table. Muscle tissue was removed with pituitaries and hemostasis was achieved with Bovie. inferior articular process of L5 and superior articular process of S1 were exposed with Bovie. Osteotome was utilized to remove a portion of the inferior articular process to expose the articular surface of S1. Some of this resected bone was used as autograft. Mili was then utilized to remove the rest of the inferior articular process and part of the lamina of L5. Superior articular process of S1 was resected with the help of a bur such that the cut was flush with the superior border of S1 pedicle. The traversing nerve root was identified and carefully retracted to expose the disc. Hemostasis was achieved with bipolar cautery. Blunt spreaders were utilized to enter the disc space under C-arm visualization. Pituitary was used to remove disc material. Curettes of various sizes and angulations were utilized to remove as much of the disc material as possible. End plates were curetted to remove all cartilage. Angled curettes were used to remove disc material from the other side underneath the central annulus. Friendly W[employer] App X-PAC trials were inserted into position and checked under C- arm lateral view. The disc space was then filled with cancellous bone chips mixed with DBX which were then impacted with the trials. An 10 x (more content not included)... [facility] CNOVon 07-14-2024 CNOV Office Visit (OBGYWM ) ARASHVI Corado ([id number]) 1980 F Date Time Provider Department 07/14/24 8:30 AM DRAGAN PORTILLO OBGYWEbony During your visit today, we recorded the following information about you: Blood pressure Weight 122/78 69.9 kg Dragan Portillo MD 07/14/2024 8:52 AM Signed Reeling Operator offered: Patient accepts, visit chaperoned by Adriana Park MA. Vi presents today for IUD insertion for menstrual dysfunction. Patient's last menstrual period was 06/08/2024 (exact date). GC/chlamydia: Not done: no risk factors and/or patient declines screening test: negative Side effects including irregular bleeding were discussed with the patient. The patient understands that it should be removed in 8 years or sooner if the patient desires a . IUD source: office provided IUD lot #: [id number] Exp date: 07/14/2026 UNIVERSAL PROTOCOL / SAFETY CHECKLIST Procedure to be Performed: Mirena IUD insertion Sign In: A Moment of CARE was completed. Personnel directly involved with the procedure wore the appropriate PPE (Personal Protective Equipment). Patient/Surrogate Stated/Verified: PATIENT VERIFIED(optional for EMERGENT procedures): Patient name, Date of , Relevant allergies, and The intended procedure Time Out Communication: Intended patient and procedure match the source documents. Consent documented and matches the intended procedure. Implant(s) inserted: Correct implant(s) confirmed including size and side. and Expiration date(s) reviewed. Sign Out: SIGN OUT (optional for EMERGENT procedures): No specimen collected. All instruments, equipment, possible retained foreign bodies accounted for. Post-procedure follow-up management communicated and Plan of Care Visit completed when applicable. Dragan Portillo M.D. The cervix was prepped with betadine. The uterus sounded to 8 cm and the uterus is Retroverted.. Using sterile technique, the Mirena IUD was inserted without difficulty and the string was cut to 2cm from the external os of the cervix. Patient tolerated procedure well. PLAN: Patient was advised to observe for signs and symptoms of infection including but not limited to fever, malodorous vaginal discharge and/or pain. The patient was told to check the string monthly for accurate placement. Bleeding expectations were reviewed. Follow up for next annual exam or sooner as needed. Dragan Portillo MD [place], [place] 07/14/2024 8:31 AM Signed POST IUD INSTRUCTIONS You may have irregular bleeding during the first 3 months of use. You may have mild-severe cramping for the next 48 hours. You may use over the counter medication (Motrin, Tylenol) as needed. Your IUD must be removed or replaced based on the following table: IUD Type Removed or replaced within: Madeline 3 years Kyleena 5 years Mirena 8 years Liletta 8 years Paragard 10 years Call the office for signs/symptoms of infection such as severe cramping, fever, or unusual bleeding. Check for string placement as instructed by your doctor. If you have any additional questions, please contact the office. Referring Provider: DRAGAN PORTILLO [[id number]] Allergies As of Date: 07/14/2024 Noted Allergy Reaction MORPHINE 07/30/2014 9 - Itching Comments: Itchy skin on arms Date Reviewed: 07/14/2024 Reviewed by: Dragan Portillo MD - Fully Assessed Reason for Visit: Insertion Of IUD [291] Primary Visit Diagnosis:Encounter for IUD insertion [Z30.430] Other Visit Diagnosis: mood disturbance [O90.6] Order(s):levonorgestr el 21 mcg/24 hr (8 yrs) 52 mg 1 Each intrauterine device (MIRENA)Disp: Rfl: levonorgestrel (MIRENA) 21 mcg/24 hr (8 yrs) 52 mg IUD1 Each by INTRAUTERINE route as directed.Disp: 1 EachRfl: 0 UA DIP,URINE HCG (POC) [7661157] Order #: [id number]. #:[id number] citalopram (CELEXA) 40 mg tabletTake 1 tablet by mouth once daily.Disp: 90 tabletRfl: 3 Prescriptions as of 07/14/2024 - levonorgestrel (MIRENA) 21 mcg/24 hr (8 yrs) 52 mg IUD 1 Each by INTRAUTERINE route as directed. - citalopram (CELEXA) 40 mg tablet Take 1 tablet by mouth once daily. - segesterone ac-ethin estradiol (ANNOVERA) 0.15-0.013 mg/24 hour vaginal ring Use 1 Each vaginally as directed. Insert 1 ring vaginally. Following insertion, ring should remain in place for 24 continuous days, then removed for 4 days - buPROPion XL (WELLBUTRIN XL) 150 mg 24 hr tablet take 1 tablet by mouth once daily DO NOT CRUSH, CHEW, AND/OR DIVIDE - cholecalciferol (VITAMIN D3) 50 mcg (2,000 unit) tablet Take 1,000 Units by mouth once daily. Facility-Administered Medications as of 07/14/2024 - levonorgestrel 21 mcg/24 hr (8 yrs) 52 mg 1 Each intrauterine device (MIRENA) Problem List As Of Date 07/14/2024 Noted Resolved Female infertility [N97.9] 04/25/2015 12/01/2018 Abnormal m (more content not included)... Normal [facility] UA DIP,URINE HCG (POC)on Beta HCG ( test) Ql (U) Negative Negative [facility] Comment on above: Location:[facility], [address], [place], [address] Faceter (POCT) Internal QC [facility] Location:[facility], [address], [place], [address] [facility] POINT OF CARE [facility] CNOVon 07-11-2024 CNOV Office Visit (OBGYWM ) VI VELA ([id number]) 1980 F Date Time Provider Department 07/11/24 11:10 AM DRAGAN PORTILLO OBGYWM During your visit today, we recorded the following information about you: Blood pressure Weight Last Period 118/74 69.4 kg 06/08/24 Dragan Portillo MD 07/11/2024 2:11 PM Signed Vi Vela is a 43 year old female who presents for problem visit for f/u heavy menses. Has been on Annovera and did well from mood standpoint but bleeding is now getting worse again. Bleeds through a tampon in 1.5 hrs and bleeds through, has to wear a full pad w/ it. Had bleeding for almost 3 weeks straight. This month not bleeding as much between menses. Taking annovera out 4-5 days a month and has to leave it out that long b/c still bleeding. Spinal fusion next week. 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: Sexual Activity: Yes; Male; bilateral salpingectomy Contraception: Tubal Ligation PAST MEDICAL HISTORY No date: Abnormal Pap smear of cervix Comment: 12 years ago- 1 neg No date: Anemia No date: anxiety No date: Breast disorder Comment: breast biopsy 06/2015- benign 2013: Dyspepsia No date: Endometriosis Comment: removed right falopian tube No date: fracture Comment: fx left leg at age 3 year from fall No date: Herniated disc Comment: lower back No date: Infertility, female No date: depression PAST SURGICAL HISTORY age 11: ADENOIDECTOMY PRIMARY Comment: Adenoidectomy 08/06/2014: APPENDECTOMY 05/2016: SECTION HX Comment: placenta previa No date: HYSTEROSCOPY, DIAGNOSTIC (SEPARATE Comment: for malpositioned IUD 05/01/2021: LAPAROSCOPY W/RMVL ADNEXAL STRUCTURES; Left Comment: left salpingectomy, right previously removed 08/06/2014: LAPS ABD PRTMANDOMENTUM DX W/WO SPEC BR/WA SPX Comment: Laparoscopy AND Right Tube Removed 02/13/2021: MIRENA IUD Comment: Placed in office 2010: PAST SURGICAL HISTORY OF Comment: cyst of right foot 08/06/2014: SEPTOPLASTY 07/12/2017: SIGMOIDOSCOPY FLX DX W/COLLJ SPEC BR/WA IF PFRMD Comment: Sigmoidoscopy, flexible age 11: TONSILLECTOMY PRIMARY/SECONDARY Comment: Tonsillectomy FAMILY HISTORY Problem Relation Age of Onset Thyroid Mother Osteoporosis Mother Hypertension Father Heart Father other (circulatory issue) Father No Known Problems Sister No Known Problems Sister No Known Problems Brother Diabetes Maternal Grandmother Hypertension Maternal Grandmother Aneurysm Maternal Grandfather Heart Maternal Grandfather Colon Cancer Paternal Grandmother Cancer Paternal Grandfather Bone, Liver and Lung No Known Problems Daughter No Known Problems Son Breast Cancer Maternal Aunt 75 Social History Tobacco Use Smoking status: Former Current packs/day: 0.00 Types: Cigarettes Start date: 05/2002 Quit date: 2002 Years since quittin.6 Smokeless tobacco: Never Vaping Use Vaping status: Never Used Substance Use Topics Alcohol use: Yes Comment: social Drug use: No Current Outpatient Medications Medication Sig citalopram (CELEXA) 40 mg tablet Take 1 tablet by mouth once daily. segesterone ac-ethin estradiol (ANNOVERA) 0.15-0.013 mg/24 hour vaginal ring Use 1 Each vaginally as directed. Insert 1 ring vaginally. Following insertion, ring should remain in place for 24 continuous days, then removed for 4 days buPROPion XL (WELLBUTRIN XL) 150 mg 24 hr tablet take 1 tablet by mouth once daily DO NOT CRUSH, CHEW, AND/OR DIVIDE cholecalciferol (VITAMIN D3) 50 mcg (2,000 unit) tablet Take 1,000 Units by mouth once daily. No current facility-administered medications for this visit. Allergies As of Date: 07/11/2024 Allergen Noted Reaction MORPHINE 07/30/2014 Itching Fully Assessed 06/05/2024 Allergies and current medication updated:Yes EXAM: LMP 03/27/2024 GENERAL: pleasant, female in no apparent distress ASSESSMENT AND PLAN: endometriosis and heavy menses, doing well on annovera for her PMS/mood but not bleeding. R/B/A to trial Mirena w/ US guidance/confirmation of placement at top of endometrium reviewed. pretreat w/ ibuprofen and misoprostol. Desires to proced. d/w her still can use annovera for pms/mood w/ IUD if needed Dragan Portillo MD Allergies As of Date: 07/11/2024 Noted Allergy Reaction MORPHINE 07/30/2014 9 - Itching Comments: Itchy skin on arms Date Reviewed: 07/11/2024 Reviewed by: Dragan Portillo MD - Fully Assessed Reason for Visit: Menstrual Problem [67] Primary Visit Diagnosis:Encounter for IUD insertion [Z30.430] Other Visit Diagnoses:Endometrios is [N80.9] Menorrhagia with regular cycle [N92.0] PMS (premenstrual syndrome) (more content not included)... Normal [facility] Hepatitis A AB, Totalon 06-16 HEPATITIS A,TOT Negative Normal Negative [facility] Comment on above: Result Comment: Comm ent: The HAV total antibody assay detects both IgG and IgM but does not differentiate between them. A negative result suggests susceptibility to infection. A positive result could be due to vaccination, previously resolved infection or active infection. Testing for HAV IgM should be performed if active HAV infection is suspected. check24 offers profiles that will automatically reflex positive HAV total antibody results to IgM (e.g., panel #[id number] HAV Antibody w/ Rfx). Performed at: [address] [id number] Human Resources Operations Director: Shilo Harvey PhD, Phone: [phone] Performed By: #### L 3890.6200, L100.0100, L3100.0300, L3890.6300, L3890.6005, BTSPAT, L500.2500, M100.651 ####[facility] [address] [place], [address] MRSA/SAID NASAL SCREENon MRSA+SAID SCRN Reason for Exam: PREOP MRSA MRSA Negative S. AUREUS S. aureus Negative Normal [facility] Comment on above: Performed By: #### L 3890.6200, L100.0100, L3100.0300, L3890.6300, L3890.6005, BTSPAT, L500.2500, M100.651 ####[facility] [address] [facility] [address] [place], [place], [id number] .Auto Diffon 07-07-2024 Basophil, Absolute 0.0 10 3/mcL Normal 0.0-0.2 [facility] ([place]) Comment on above: Performed By: #### T SH, CMP, LIPID, ANEU, CBC, ADIFF, GFR #### [address] [address] Basophils/100 WBC (Bld) 0.6 % Normal 0.0-2.5 A [facility] ([place]) Comment on above: Performed By: #### T SH, CMP, LIPID, ANEU, CBC, ADIFF, GFR #### [address] [address] Eosinophil, Absolute 0.1 10 3/mcL Normal 0.0-0.4 [facility] ([place]) Comment on above: Performed By: #### T SH, CMP, LIPID, ANEU, CBC, ADIFF, GFR #### [address] [address] Eosinophils/100 WBC (Bld) 1.5 % Normal 0.0-7.0 [facility] ([place]) Comment on above: Performed By: #### T SH, CMP, LIPID, ANEU, CBC, ADIFF, GFR #### [address] [address] Lymphocyte, Absolute 1.8 10 3/mcL Normal 0.8-3.9 [facility] ([place]) Comment on above: Performed By: #### T SH, CMP, LIPID, ANEU, CBC, ADIFF, GFR #### [address] [address] Lymphocytes/100 WBC (Bld) 37.4 % Normal 10.0-50.0 [facility] ([place]) Comment on above: Performed By: #### T SH, CMP, LIPID, ANEU, CBC, ADIFF, GFR #### [address] [address] Monocyte, Absolute 0.5 10 3/mcL Normal 0.2-1.0 [facility] ([place]) Comment on above: Performed By: #### T SH, CMP, LIPID, ANEU, CBC, ADIFF, GFR #### [address] [address] Monocytes/100 WBC (Bld) 10.6 % Normal 1.7-13.0 A [facility] ([place]) Comment on above: Performed By: #### T SH, CMP, LIPID, ANEU, CBC, ADIFF, GFR #### [address] [address] Neutrophils/100 WBC (Bld) 49.9 % Normal 37.0-80.0 [facility] ([place]) Comment on above: Performed By: #### T SH, CMP, LIPID, ANEU, CBC, ADIFF, GFR #### [address] [address] .GFRon 07-07-2024 GFR 75 ml/min/1.73sqm Normal [facility] ([place]) Comment on above: Result Comment: GFR Population mean for , Non- Americans Ages 20-29 = 116 mL/min/1.73 sq.m. Ages 30-39 = 107 mL/min/1.73 sq.m. Ages 40-49 = 99 mL/min/1.73 sq.m. Ages 50-59 = 93 mL/min/1.73 sq.m. Ages 60-69 = 85 mL/min/1.73 sq.m. Ages 70+ = 75 mL/min/1.73 sq.m. Chronic Kidney Disease: Less than 60 mL/min/1.73 square meters End Stage Renal Disease: Less than 15 mL/min/1.73 square meters Performed By: #### T SH, CMP, LIPID, ANEU, CBC, ADIFF, GFR #### [address] [address] GFR Non- 62 ml/min/1.73sqm Normal [facility] ([place]) Comment on above: Result Comment: GFR Population mean for , Non- Americans Ages 20-29 = 116 mL/min/1.73 sq.m. Ages 30-39 = 107 mL/min/1.73 sq.m. Ages 40-49 = 99 mL/min/1.73 sq.m. Ages 50-59 = 93 mL/min/1.73 sq.m. Ages 60-69 = 85 mL/min/1.73 sq.m. Ages 70+ = 75 mL/min/1.73 sq.m. Chronic Kidney Disease: Less than 60 mL/min/1.73 square meters End Stage Renal Disease: Less than 15 mL/min/1.73 square meters Performed By: #### T SH, CMP, LIPID, ANEU, CBC, ADIFF, GFR #### [facility] [address] [place], [place] [address] .NEUABSon 07-07-2024 Neutrophil, Absolute 2.4 10 3/mcL Low 2.9-6.2 [facility] ([place]) Comment on above: Performed By: #### T SH, CMP, LIPID, ANEU, CBC, ADIFF, GFR #### [address] [place], [place] [address] Basic Metabolic Profile (BMP )on 07-07-2024 BUN/CRE 13.9 RATIO Normal 10-20 [facility] Comment on above: Performed By: #### L 3890.6200, L100.0100, L3100.0300, L3890.6300, L3890.6005, BTSPAT, L500.2500, M100.651 ####[facility] [address] [place], [address] CA,Total 8.3 mg/dL Low 8.5-10.1 [facility] Comment on above: Performed By: #### L 3890.6200, L100.0100, L3100.0300, L3890.6300, L3890.6005, BTSPAT, L500.2500, M100.651 ####[facility] [address] [place], [address] Chloride [Moles/Vol] 109 mmol/L High 98-107 [facility] Comment on above: Performed By: #### L 3890.6200, L100.0100, L3100.0300, L3890.6300, L3890.6005, BTSPAT, L500.2500, M100.651 ####[facility] [address] [place], [address] CO2 [Moles/Vol] 27.0 mmol/L Normal 21.0-32.0 [facility] Comment on above: Performed By: #### L 3890.6200, L100.0100, L3100.0300, L3890.6300, L3890.6005, BTSPAT, L500.2500, M100.651 ####[facility] [address] [place], [address] Creatinine [Mass/Vol] 0.94 mg/dL Normal 0.55-1.02 [facility] Comment on above: Result Comment: The validity of the calculated GFR GFRAA in patients over 70 years has not been determined. Clinical correlation is essential. Performed By: #### L 3890.6200, L100.0100, L3100.0300, L3890.6300, L3890.6005, BTSPAT, L500.2500, M100.651 ####[facility] [address] [place], [address] EST GFR - AA 84 mL/min Normal >60 [facility] Comment on above: Result Comment: Afri can Bahraini GFR Calc Performed By: #### L 3890.6200, L100.0100, L3100.0300, L3890.6300, L3890.6005, BTSPAT, L500.2500, M100.651 ####[facility] [address] [place], [address] GAP 4 Low 5-15 [facility] Comment on above: Performed By: #### L 3890.6200, L100.0100, L3100.0300, L3890.6300, L3890.6005, BTSPAT, L500.2500, M100.651 ####[facility] [address] [place], [address] GFR/1.73 sq M.predicted among non-blacks MDRD (S/P/Bld) [Vol rate/Area] 70 mL/min/{1.73_m2} Normal >60 [facility] Comment on above: Result Comment: Non- GFR Calc Performed By: #### L 3890.6200, L100.0100, L3100.0300, L3890.6300, L3890.6005, BTSPAT, L500.2500, M100.651 ####[facility] [address] [place], [address] Glucose [Mass/Vol] 116 mg/dL High 74-106 [facility] Comment on above: Result Comment: Fast ing Glucose result from 100 to 125 mg/dL suggests IMPAIRED HOMEOSTASIS per A.D.A. criteria. Performed By: #### L 3890.6200, L100.0100, L3100.0300, L3890.6300, L3890.6005, BTSPAT, L500.2500, M100.651 ####[facility] [address] [place], [address] Potassium [Moles/Vol] 3.7 mmol/L Normal 3.5-5.1 [facility] Comment on above: Performed By: #### L 3890.6200, L100.0100, L3100.0300, L3890.6300, L3890.6005, BTSPAT, L500.2500, M100.651 ####[facility] [address] [place], [address] Sodium [Moles/Vol] 140 mmol/L Normal 136-145 [facility] Comment on above: Performed By: #### L 3890.6200, L100.0100, L3100.0300, L3890.6300, L3890.6005, BTSPAT, L500.2500, M100.651 ####[facility] [address] [place], [address] Urea nitrogen [Mass/Vol] 13 mg/dL Normal 7-18 [facility] Comment on above: Performed By: #### L 3890.6200, L100.0100, L3100.0300, L3890.6300, L3890.6005, BTSPAT, L500.2500, M100.651 ####[facility] [address] [place], [address] CBCon 07-07-2024 Erythrocyte distribution width (RBC) [Ratio] 14.1 % Normal 11.5-14.5 [facility] ([place]) Comment on above: Performed By: #### T SH, CMP, LIPID, ANEU, CBC, ADIFF, GFR #### [address] [address] Hematocrit (Bld) [Volume fraction] 36.9 % Low 37.0-47.0 [facility] ([place]) Comment on above: Performed By: #### T SH, CMP, LIPID, ANEU, CBC, ADIFF, GFR #### [address] [address] Hgb 12.5 G/dL Normal 12.0-16.0 [facility] ([place]) Comment on above: Performed By: #### T SH, CMP, LIPID, ANEU, CBC, ADIFF, GFR #### [address] [address] MCH (RBC) [Entitic mass] 28.9 pg Normal 27.0-31.2 [facility] ([place]) Comment on above: Performed By: #### T SH, CMP, LIPID, ANEU, CBC, ADIFF, GFR #### [address] [address] MCHC 33.8 G/dL Normal 33.0-37.0 [facility] ([place]) Comment on above: Performed By: #### T SH, CMP, LIPID, ANEU, CBC, ADIFF, GFR #### [address] [address] MCV (RBC) [Entitic vol] 85.3 fL Normal 80.0-94.0 A [facility] ([place]) Comment on above: Performed By: #### T SH, CMP, LIPID, ANEU, CBC, ADIFF, GFR #### [address] [address] Platelet 209 10 3/mcL Normal 130-400 [facility] ([place]) Comment on above: Performed By: #### T SH, CMP, LIPID, ANEU, CBC, ADIFF, GFR #### [address] [address] Platelet mean volume (Bld) [Entitic vol] 8.6 fL Normal 7.4-10.4 [facility] ([place]) Comment on above: Performed By: #### T SH, CMP, LIPID, ANEU, CBC, ADIFF, GFR #### [address] [address] RBC 4.33 10 6/mcL Normal 4.20-5.40 [facility] ([place]) Comment on above: Performed By: #### T SH, CMP, LIPID, ANEU, CBC, ADIFF, GFR #### [address] [address] WBC 4.9 10 3/mcL Normal 4.6-10.8 [facility] ([place]) Comment on above: Performed By: #### T SH, CMP, LIPID, ANEU, CBC, ADIFF, GFR #### [address] [address] CBC W/Diff, Automatedon 08-2 -2023 Absolute Lymph 1.63 X10 3/uL Normal 0.83-4.51 [facility] Comment on above: Performed By: #### L 3890.6200, L100.0100, L3100.0300, L3890.6300, L3890.6005, BTSPAT, L500.2500, M100.651 ####[facility] [address] [place], [address] Absolute Neut 2.2 X10 3/uL Normal 2.0-7.7 [facility] Comment on above: Performed By: #### L 3890.6200, L100.0100, L3100.0300, L3890.6300, L3890.6005, BTSPAT, L500.2500, M100.651 ####[facility] [address] [place], [address] Basophils/100 WBC (Bld) 0.5 % Normal 0-1 [facility] Comment on above: Performed By: #### L 3890.6200, L100.0100, L3100.0300, L3890.6300, L3890.6005, BTSPAT, L500.2500, M100.651 ####[facility] [address] [place], [address] Eosinophils/100 WBC (Bld) 1.2 % Normal 0-5 [facility] Comment on above: Performed By: #### L 3890.6200, L100.0100, L3100.0300, L3890.6300, L3890.6005, BTSPAT, L500.2500, M100.651 ####[facility] [address] [place], [address] Erythrocyte distribution width (RBC) [Ratio] 13.4 % Normal 11.6-14.6 [facility] Comment on above: Performed By: #### L 3890.6200, L100.0100, L3100.0300, L3890.6300, L3890.6005, BTSPAT, L500.2500, M100.651 ####[facility] [address] [place], [address] Hematocrit (Bld) [Volume fraction] 37.0 % Normal 37-47 [facility] Comment on above: Performed By: #### L 3890.6200, L100.0100, L3100.0300, L3890.6300, L3890.6005, BTSPAT, L500.2500, M100.651 ####[facility] [address] [place], [address] Hemoglobin (Bld) [Mass/Vol] 11.7 g/dL Low 12.0-15.0 [facility] Comment on above: Performed By: #### L 3890.6200, L100.0100, L3100.0300, L3890.6300, L3890.6005, BTSPAT, L500.2500, M100.651 ####[facility] [address] [place], [address] IG% 0.200 Normal 0.0-0.9 [facility] Comment on above: Result Comment: IG% - Immature Granulocytes (promyelocytes, myelocytes and metamyelocytes) > 1% indicates that a LEFT SHIFT is Present. Performed By: #### L 3890.6200, L100.0100, L3100.0300, L3890.6300, L3890.6005, BTSPAT, L500.2500, M100.651 ####[facility] [address] [place], [address] Lymphocytes/100 WBC (Bld) 38.6 % Normal 19-41 [facility] Comment on above: Performed By: #### L 3890.6200, L100.0100, L3100.0300, L3890.6300, L3890.6005, BTSPAT, L500.2500, M100.651 ####[facility] [address] [place], [address] MCH (RBC) [Entitic mass] 27.3 pg Normal 27.0-32.0 [facility] Comment on above: Performed By: #### L 3890.6200, L100.0100, L3100.0300, L3890.6300, L3890.6005, BTSPAT, L500.2500, M100.651 ####[facility] [address] [place], [address] MCHC (RBC) [Mass/Vol] 31.6 g/dL Low 32-36 [facility] Comment on above: Performed By: #### L 3890.6200, L100.0100, L3100.0300, L3890.6300, L3890.6005, BTSPAT, L500.2500, M100.651 ####[facility] [address] [place], [address] MCV (RBC) [Entitic vol] 86.4 fL Normal 81-99 [facility] Comment on above: Performed By: #### L 3890.6200, L100.0100, L3100.0300, L3890.6300, L3890.6005, BTSPAT, L500.2500, M100.651 ####[facility] [address] [place], [address] Monocytes/100 WBC (Bld) 6.4 % Normal 0-10 [facility] Comment on above: Performed By: #### L 3890.6200, L100.0100, L3100.0300, L3890.6300, L3890.6005, BTSPAT, L500.2500, M100.651 ####[facility] [address] [place], [address] Neutrophils/100 WBC (Bld) 53.1 % Normal 47-70 [facility] Comment on above: Performed By: #### L 3890.6200, L100.0100, L3100.0300, L3890.6300, L3890.6005, BTSPAT, L500.2500, M100.651 ####[facility] [address] [place], [address] Nucleated RBC (Bld) [#/Vol] 0 10*3/uL Normal 0-5 [facility] Comment on above: Performed By: #### L 3890.6200, L100.0100, L3100.0300, L3890.6300, L3890.6005, BTSPAT, L500.2500, M100.651 ####[facility] [address] [place], [address] Platelet mean volume (Bld) [Entitic vol] 10.2 fL Normal 6.2-12.0 [facility] Comment on above: Performed By: #### L 3890.6200, L100.0100, L3100.0300, L3890.6300, L3890.6005, BTSPAT, L500.2500, M100.651 ####[facility] [address] [place], [address] Platelets (Bld) [#/Vol] 214 10*3/uL Normal 150-450 [facility] Comment on above: Performed By: #### L 3890.6200, L100.0100, L3100.0300, L3890.6300, L3890.6005, BTSPAT, L500.2500, M100.651 ####[facility] [address] [place], [address] RBC (Bld) [#/Vol] 4.28 10*6/uL Normal 4.2-5.4 [facility] Comment on above: Performed By: #### L 3890.6200, L100.0100, L3100.0300, L3890.6300, L3890.6005, BTSPAT, L500.2500, M100.651 ####[facility] [address] [place], [address] RDW SD 42.0 fl Normal 35.1-43.9 [facility] Comment on above: Performed By: #### L 3890.6200, L100.0100, L3100.0300, L3890.6300, L3890.6005, BTSPAT, L500.2500, M100.651 ####[facility] [address] [place], [address] WBC (Bld) [#/Vol] 4.2 10*3/uL Low 4.4-11.0 [facility] Comment on above: Performed By: #### L 3890.6200, L100.0100, L3100.0300, L3890.6300, L3890.6005, BTSPAT, L500.2500, M100.651 ####[facility] [address] [place], [address] CMPon 07-07-2024 Albumin Level 3.1 G/dL Low 3.5-5.0 [facility] ([place]) Comment on above: Performed By: #### T SH, CMP, LIPID, ANEU, CBC, ADIFF, GFR #### [address] [address] Albumin/Globulin [Mass ratio] 0.8 {ratio} Low 1.1-2.5 [facility] ([place]) Comment on above: Performed By: #### T SH, CMP, LIPID, ANEU, CBC, ADIFF, GFR #### [address] [address] ALP [Catalytic activity/Vol] 91 U/L Normal 40-135 [facility] ([place]) Comment on above: Performed By: #### T SH, CMP, LIPID, ANEU, CBC, ADIFF, GFR #### [address] [address] ALT [Catalytic activity/Vol] 16 U/L Normal 14-59 [facility] ([place]) Comment on above: Performed By: #### T SH, CMP, LIPID, ANEU, CBC, ADIFF, GFR #### [address] [address] AST [Catalytic activity/Vol] 16 U/L Normal 10-40 [facility] ([place]) Comment on above: Performed By: #### T SH, CMP, LIPID, ANEU, CBC, ADIFF, GFR #### [address] [address] Bili Total 0.2 mg/dL Normal 0.2-1.0 [facility] ([place]) Comment on above: Result Comment: Use of this assay is not recommended for patients undergoing treatment with eltrombopag due to the potential for falsely elevated results. Performed By: #### T SH, CMP, LIPID, ANEU, CBC, ADIFF, GFR #### [address] [address] BUN/Creatinine Ratio 12 ratio Normal 7-27 [facility] ([place]) Comment on above: Performed By: #### T SH, CMP, LIPID, ANEU, CBC, ADIFF, GFR #### [address] [address] Calcium [Mass/Vol] 8.6 mg/dL Normal 8.4-10.2 [facility] ([place]) Comment on above: Performed By: #### T SH, CMP, LIPID, ANEU, CBC, ADIFF, GFR #### [address] [address] Chloride [Moles/Vol] 105 mmol/L Normal 98-107 [facility] ([place]) Comment on above: Performed By: #### T SH, CMP, LIPID, ANEU, CBC, ADIFF, GFR #### [address] [address] CO2 [Moles/Vol] 28 mmol/L Normal 22-29 [facility] ([place]) Comment on above: Performed By: #### T SH, CMP, LIPID, ANEU, CBC, ADIFF, GFR #### [address] [address] Creatinine [Mass/Vol] 0.99 mg/dL Normal 0.55-1.02 [facility] ([place] Comment on above: Performed By: #### T SH, CMP, LIPID, ANEU, CBC, ADIFF, GFR #### [address] [address] Electrolyte Balance 8.0 mEq/L Normal 4.0-15.0 [facility] ([place]) Comment on above: Performed By: #### T SH, CMP, LIPID, ANEU, CBC, ADIFF, GFR #### [address] [place] [address] Globulin 4.0 G/dL Normal [facility] ([place]) Comment on above: Performed By: #### T SH, CMP, LIPID, ANEU, CBC, ADIFF, GFR #### [address] [address] Glucose [Mass/Vol] 98 mg/dL Normal 70-105 [facility] ([place]) Comment on above: Performed By: #### T SH, CMP, LIPID, ANEU, CBC, ADIFF, GFR #### Vivek [address] [address] Potassium [Moles/Vol] 4.4 mmol/L Normal 3.5-5.1 [facility] ([place] Comment on above: Performed By: #### T SH, CMP, LIPID, ANEU, CBC, ADIFF, GFR #### [address] [address] Sodium [Moles/Vol] 141 mmol/L Normal 136-145 [facility] ([place]) Comment on above: Performed By: #### T SH, CMP, LIPID, ANEU, CBC, ADIFF, GFR #### [address] [address] Total Protein 7.1 G/dL Normal 6.4-8.2 [facility] ([place]) Comment on above: Performed By: #### T SH, CMP, LIPID, ANEU, CBC, ADIFF, GFR #### [address] [address] Urea nitrogen [Mass/Vol] 12 mg/dL Normal 7-18 [facility] ([place]) Comment on above: Performed By: #### T SH, CMP, LIPID, ANEU, CBC, ADIFF, GFR #### [address] [address] HIV - WCHon 07-07-2024 HIV Non-Reactive Normal Nonreactive [facility] Comment on above: Order Comment: Reaso n for Exam: PAT Performed By: #### L 3890.6200, L100.0100, L3100.0300, L3890.6300, L3890.6005, BTSPAT, L500.2500, M100.651 ####[facility] [address] [place], [address] Hepatitis B Surface Antibody on 07-07-2024 HEP B Surf Ab Reactive Normal [facility] Comment on above: Order Comment: Reaso n for Exam: PAT Result Comment: Non Reactive: Inconsistent with immunity less than <10 mIU/mL Reactive: Consistent with immunity greater than or equal to 10 mIU/mL Performed By: #### L 3890.6200, L100.0100, L3100.0300, L3890.6300, L3890.6005, BTSPAT, L500.2500, M100.651 ####[facility] [address] [place], [address] Hepatitis C Antibodyon 07-07 Hepatitis C AB Non-Reactive Normal Nonreactive [facility] Comment on above: Order Comment: Reaso n for Exam: PAT Result Comment: Non Reactive: < 0.8 Equivocal: >/= 0.8 to < 1.0 Reactive: >/= 1.0 The CDC requires that a reactive/equivocal HCV antibody result be sent out for confirmation. HCV Quant by PCR testing. Performed By: #### L 3890.6200, L100.0100, L3100.0300, L3890.6300, L3890.6005, BTSPAT, L500.2500, M100.651 ####[facility] [address] [place], [address] LABORATORYOrdered By: SYSTEM SYSTEM on 07-07-2024 Albumin BCP dye [Mass/Vol] 3.1 G/dL Low 3.5 - 5.0 G/dL AO ADM SS Albumin/Globulin [Mass ratio] 0.8 {ratio} Low 1.1 - 2.5 ratio AO ADM SS ALP [Catalytic activity/Vol] 91 U/L Normal 40 - 135 U/L AO ADM SS ALT With P-5'-P [Catalytic activity/Vol] 16 U/L Normal 14 - 59 U/L AO ADM SS AST With P-5'-P [Catalytic activity/Vol] 16 U/L Normal 10 - 40 U/L AO ADM SS Basophil, Absolute 0.0 103/mcL Normal 0.0 - 0.2 10^3/mcL AO Workflow SS Basophils/100 WBC (Bld) 0.6 % Normal 0.0 - 2.5 % AO Workflow SS Bilirubin [Mass/Vol] 0.2 mg/dL Normal 0.2 - 1 .0 mg/dL AO ADM SS Comment on above: Interpretive Data: U se of this assay is not recommended for patients undergoing treatment with eltrombopag due to the potential for falsely elevated results. Calcium [Mass/Vol] 8.6 mg/dL Normal 8.4 - 10. 2 mg/dL AO ADM SS Chloride [Moles/Vol] 105 mmol/L Normal 98 - 10 7 mmol/L AO ADM SS CO2 [Moles/Vol] 28 mmol/L Normal 22 - 29 mmol/L AO ADM SS Creatinine [Mass/Vol] 0.99 mg/dL Normal 0.55 - 1.02 mg/dL AO ADM SS Electrolyte Balance 8.0 mEq/L Normal 4.0 - 15 .0 mEq/L AO ADM SS Eosinophil, Absolute 0.1 103/mcL Normal 0.0 - 0 .4 10^3/mcL AO Workflow SS Eosinophils/100 WBC (Bld) 1.5 % Normal 0.0 - 7.0 % AO Workflow SS Erythrocyte distribution width (RBC) [Ratio] 14.1 % Normal 11.5 - 14.5 % AO Workflow SS GFR/1.73 sq M.predicted among blacks MDRD (S/P/Bld) [Vol rate/Area] 75 ml/min/1.73sqm Invalid Interpretation Code AO Chemistry S Comment on above: Interpretive Data: GFR Population mean for , Non- Americans Ages 20-29 = 116 mL/min/1.73 sq.m. Ages 30-39 = 107 mL/min/1.73 sq.m. Ages 40-49 = 99 mL/min/1.73 sq.m. Ages 50-59 = 93 mL/min/1.73 sq.m. Ages 60-69 = 85 mL/min/1.73 sq.m. Ages 70+ = 75 mL/min/1.73 sq.m. Chronic Kidney Disease: Less than 60 mL/min/1.73 square meters End Stage Renal Disease: Less than 15 mL/min/1.73 square meters GFR/1.73 sq M.predicted among non-blacks MDRD (S/P/Bld) [Vol rate/Area] 62 ml/min/1.73sqm Invalid Interpretation Code AO Chemistry S Comment on above: Interpretive Data: GFR Population mean for , Non- Americans Ages 20-29 = 116 mL/min/1.73 sq.m. Ages 30-39 = 107 mL/min/1.73 sq.m. Ages 40-49 = 99 mL/min/1.73 sq.m. Ages 50-59 = 93 mL/min/1.73 sq.m. Ages 60-69 = 85 mL/min/1.73 sq.m. Ages 70+ = 75 mL/min/1.73 sq.m. Chronic Kidney Disease: Less than 60 mL/min/1.73 square meters End Stage Renal Disease: Less than 15 mL/min/1.73 square meters Globulin 4.0 G/dL Invalid Interpretation Code AO ADM SS Glucose [Mass/Vol] 98 mg/dL Normal 70 - 105 mg/dL AO ADM SS Hematocrit (Bld) [Volume fraction] 36.9 % Low 37.0 - 47.0 % AO Workflow SS Hemoglobin (Bld) [Mass/Vol] 12.5 G/dL Normal 12.0 - 16.0 G/dL AO Workflow SS Lymphocyte, Absolute 1.8 103/mcL Normal 0.8 - 3 .9 10^3/mcL AO Workflow SS Lymphocytes/100 WBC (Bld) 37.4 % Normal 10.0 - 50.0 % AO Workflow SS MCH (RBC) [Entitic mass] 28.9 pg Normal 27.0 - 31.2 pg AO Workflow SS MCHC 33.8 G/dL Normal 33.0 - 37.0 G/dL AO Workflow SS MCV (RBC) [Entitic vol] 85.3 fL Normal 80.0 - 94.0 fL AO Workflow SS Monocyte, Absolute 0.5 103/mcL Normal 0.2 - 1.0 10^3/mcL AO Workflow SS Monocytes/100 WBC (Bld) 10.6 % Normal 1.7 - 13.0 % AO Workflow SS Neutrophil, Absolute 2.4 103/mcL Low 2.9 - 6 .2 10^3/mcL AO Workflow SS Neutrophils/100 WBC (Bld) 49.9 % Normal 37.0 - 80.0 % AO Workflow SS Platelet mean volume (Bld) [Entitic vol] 8.6 fL Normal 7.4 - 10.4 fL AO Workflow SS Platelets (Bld) [#/Vol] 209 103/mcL Normal 130 - 400 10^3/mcL AO Workflow SS Potassium [Moles/Vol] 4.4 mmol/L Normal 3.5 - 5.1 mmol/L AO ADM SS Protein [Mass/Vol] 7.1 G/dL Normal 6.4 - 8.2 G/dL AO ADM SS RBC (Bld) [#/Vol] 4.33 106/mcL Normal 4.20 - 5.4 0 10^6/mcL AO Workflow SS Sodium [Moles/Vol] 141 mmol/L Normal 136 - 145 mmol/L AO ADM SS TSH Qn 1.24 m[IU]/L Normal 0.36 - 3.74 mcIU/mL AO ADM SS Urea nitrogen [Mass/Vol] 12 mg/dL Normal 7 - 18 mg/dL AO ADM SS Urea nitrogen/Creatinine [Mass ratio] 12 ratio Normal 7 - 27 ratio AO ADM SS WBC (Bld) [#/Vol] 4.9 103/mcL Normal 4.6 - 10.8 10^3/mcL AO Workflow SS LABORATORYOrdered By: Gagandeep Galicia on 07-07-2024 Cholesterol [Mass/Vol] 193 mg/dL Normal 0 - 200 mg/dL AO ADM SS Comment on above: Interpretive Data: C holesterol Reference Interval: Less than 200 Desirable 200-239 Borderline high risk 240 and above High risk Cholesterol in HDL [Mass/Vol] 67 mg/dL High 40 - 60 mg/dL AO ADM SS Cholesterol in LDL [Mass/Vol] 75 mg/dL Normal 0 - 130 mg/dL AO ADM SS Triglyceride [Mass/Vol] 254 mg/dL High 0 - 150 mg/d L AO ADM SS Comment on above: Interpretive Data: T riglyceride Reference Interval: Less than 150 Normal 150-199 Borderline high risk 200-499 High risk 500 or higher Very high risk LIPIDon 07-07-2024 Cholesterol [Mass/Vol] 193 mg/dL Normal 0-200 [facility] ([place]) Comment on above: Result Comment: Chol esterol Reference Interval: Less than 200 Desirable 200-239 Borderline high risk 240 and above High risk Performed By: #### T SH, CMP, LIPID, ANEU, CBC, ADIFF, GFR #### [address] [address] Cholesterol in HDL [Mass/Vol] 67 mg/dL High 40-60 [facility] ([place]) Comment on above: Performed By: #### T SH, CMP, LIPID, ANEU, CBC, ADIFF, GFR #### [address] [address] Cholesterol in LDL [Mass/Vol] 75 mg/dL Normal 0-130 [facility] ([place]) Comment on above: Performed By: #### T SH, CMP, LIPID, ANEU, CBC, ADIFF, GFR #### [address] [address] Triglyceride [Mass/Vol] 254 mg/dL High 0-150 A [facility] ([place]) Comment on above: Result Comment: Trig lyceride Reference Interval: Less than 150 Normal 150-199 Borderline high risk 200-499 High risk 500 or higher Very high risk Performed By: #### T SH, CMP, LIPID, ANEU, CBC, ADIFF, GFR #### [address] [address] Magnesiumon 07-07-2024 Magnesium [Mass/Vol] 2.3 mg/dL Normal 1.6-2.6 [facility] Comment on above: Performed By: #### L 501.5200 ####[facility] [address] [place], [place], [address] Orthopedic Visit Reporton Orthopedic Visit Report [facility] [facility] [address] [place], [place] [address] OFFICE VISIT Date of Service: 07/07/24 MR#: [id number] Acct: [id number] Name: VI VELA Rep #: [id number] : 1980 Provider: Dr. Mac Mcintyre MD Age/Sex: 43/F Location: [facility].SHELLI Status: Signed Intake Vital Signs 05/05/24 08:24 Height 5 ft 4 in Weight: 153 lb BMI 26.2 Intake Visit Reasons: lumbar spine Accompanied by: Is patient in pain?: No Allergies morphine Adverse Reaction (Verified 07/04/24 09:07) Itching Medications ???Medication ???Instructions ???Recorded ???Confirmed ???Type ibuprofen 600 mg tablet 600 mg PO Q6H PRN PRN Pain Score 12/29/20 07/07/24 Rx 1-3 #30 tabs cholecalciferol (vitamin D3) 25 25 mcg PO DAILY 04/24/21 07/07/24 History mcg (1,000 unit) chewable tablet (Vitamin D3) citalopram 40 mg tablet 40 mg PO DAILY 04/24/21 07/07/24 History bupropion HCl 150 mg 24 hr tablet, 150 mg PO QDAY 05/05/24 07/07/24 History extended release tizanidine 2 mg tablet 2 mg PO QHS PRN muscle spasticity 05/05/24 07/07/24 History segesterone acet 0.15 mg-ethinyl 1 vag ring vaginal QMONTH 07/04/24 07/07/24 History estradiol 0.013 mg/24 hr vaginal ring ([place]) PFSH Medical History COVID Wears hearing aid Loss of hearing Depression Restless legs History of chemical tubal occlusion Wears glasses Wears contact lenses Anxiety Alcohol use Back pain Injury of back Former smoker History of herniated intervertebral disc Stomach ulcer Surgical History History of hysteroscopy History of tonsillectomy and adenoidectomy Hx of laparoscopy History of foot surgery History of delivery Family History Other Alcoholism CVA (cerebral vascular accident) Heart disease Osteoporosis Thyroid disorder Social History Smoking Status: Former smoker alcohol intake: current alcohol intake frequency: holidays/special occasions only substance use type: does not use what type of physical activity do you participate in: yoga frequency: 3-4 times per week HPI lumbar spine Details: This documentation accurately reflects the service provided and the decisions made by me, Dr. Mac Mcintyre MD 07/07/24 1322. Part of today???s visit was documented by Noelle URENA , acting as scribe. VI VELA is a 43 year old F here today for Pre-Op D.O.S 07/18/2024 she is having done L5- S1 Minimally Invasive Transforaminal Lumbar interbody fusion. *Patient did test Positive for Covid on 07/01/2024. 05/05/24: VI VELA is a 43 year old F here today for low back pain. Pt. advises she has had a herniated disc for 11 years but has been experiencing increased pain for a about a year and a half. She states she fell down her stairs in August of 2022. She was seen at the [facility] where xrays of her right hip were taken and were negative for fracture. She continued to have pain and had been seeing Dr. Baires for senior care provider. She states the pain is actually worse on the left side of her low back. She has done PT as well as pain management for injections and nerve ablations with Dr. Meadows. Dr. Baires ordered an lumbar spine MRI. She has been seeing Dr. Adams at the [facility] who recommended a disc replacement but it was denied her insurance. Vi had a lumbar disc herniation about 11 years ago which was treated with epidural injections and her radicular pain resolved over 6 months. She then had back pain localized over the left SI joint region during her 2 pregnancies 3 and 5 years ago. After these pregnancies she did receive SI joint injections which seem to help back then. About 2 years ago she had a bad fall towards her right hip and severe aggravation of her pain. Her pain starts in the lower back towards the left going to the left buttock region. She denies any tingling numbness of the lower extremities. She is able to walk good amounts of distances but standing and sitting for long peers of time becomes a problem. She has had numerous injections through pain management over the last 2 years without significant help. She also tried physical therapy and chiropractic treatment which also did not give her persistent relief. Ortho Exam General General: Yes no acute distress Neurologic: Yes alert and Yes oriented x3 Spine SPINE TESTING CERVICAL THORACIC LUMBAR Musculoskeletal Strength 0=absent - 5=normal Details: Examination the back shows left paraspinal tenderness to lower lumbar spine. Neurologic motion of lower extremity shows 5 (more content not included)... Normal [facility] TSHon 07-07-2024 TSH Qn 1.24 m[IU]/L Normal 0.36-3.74 [facility] ([place]) Comment on above: Performed By: #### T SH, CMP, LIPID, ANEU, CBC, ADIFF, GFR #### [address] [place], [place] [address] Type AND Screen - PAT ONLY 07-07-2024 ABO and Rh group Nom (Bld) Blood group O Rh(D) negative Normal [facility] Comment on above: Order Comment: Reaso n for Laboratory Test [id number] LUMBAR INTERBODY FUSION Performed By: #### L 3890.6200, L100.0100, L3100.0300, L3890.6300, L3890.6005, BTSPAT, L500.2500, M100.651 ####[facility] [address] [place], [address] Final Surgical Pathology Rep [facility] 05-24-2024 Final Surgical Pathology Report . Pathology Reports Accession: Collected Date/Time: Received Date/Time: Pathologist: [id number] 05/22/2024 12:27 EDT 05/23/2024 08:24 EDT CARLOS HAGEN MD Final Surgical Pathology Report DIAGNOSIS: MID ASCENDING COLON, POLYPECTOMY: - SESSILE SERRATED LESION WITHOUT ATYPIA CLINICAL INFORMATION: ENCOUNTER FOR SCREENING, UNSPECIFIED Procedure: COLONOSCOPY Preoperative diagnosis: SCREENING Postoperative diagnosis: SCREENING SPECIMEN: A MID ASCENDING COLON - 7MM GROSS DESCRIPTION: All parts labelled with patient name and [id number] Received in formalin labeled mid ascending 7 mm is 1 triangular shaped filter labeled with send #1 containing multiple petersen-pink tissue fragments aggregating 1.5 x 0.3 x 0.1 cm. Fecal debris also identified. TS-1 Josefina Martin, Grossing Pipe Installer/ Dr. Carlos Hagen, Pathologist Performed by Josefina Martin MICROSCOPIC DESCRIPTION: The microscopic examination is performed, except in the case of Gross Only. Electronically Signed by Pathology Report verified by [facility] CARLOS HAGEN Sign out Date: 05/24/2024 11:15 Performing Lab: [facility], [address] [place] [address] Pathology Dept Disclaimer If ancillary studies were utilized, the following Laboratory Developed Test (LDT) disclaimer will apply: Under CLIA requirements, [facility] is qualified to perform high complexity testing. For all ancillary stains, positive and negative controls stain appropriately. Performance characteristics of immunohistochemical and chromogenic in-situ hybridization tests have been determined by [facility]. These tests are used for clinical purposes, They should not be regarded as investigational or for research. Normal [facility] ([place]) [facility] CNPN Telephone (OBGYWM) IV VELA ([id number]) 1980 F Date Time Provider Department 05/10/24 LISHA CASTANEDA During your visit today, we recorded the following information about you: Lisha Castaneda APRN.CNP 05/10/2024 12:51 PM Signed Mammo and ultrasound was ordered for axillary pain but I do not see anything specified in the ultrasound report about axillary images, just breast ultrasound at 1-2 o' clock position. Can radiology be called to confirm that axillary images were obtained/normal? THIAGO Belle Tara, LANIE 05/24/2024 2:37 PM Signed We reached out to mammogram tech and She stated The area scanned was her pain, near the axilla where the patient complained of pain. We always confirm w/ the patient the area scanned is over the area of concern. If you look at the diagnostic mamm pictures there is a triangle marking the area of pain. It is axillary tail area not up in axilla. Lizette Gamble RN Allergies As of Date: 05/10/2024 Noted Allergy Reaction MORPHINE 07/30/2014 9 - Itching Comments: Itchy skin on arms Date Reviewed: 04/14/2024 Reviewed by: Lisha Castaneda APRN.CUTTING TOOL SHARPENER - Fully Assessed Reason for Visit: Results [95] Prescriptions as of 05/31/2024 - citalopram (CELEXA) 40 mg tablet Take 1 tablet by mouth once daily. - segesterone ac-ethin estradiol (ANNOVERA) 0.15-0.013 mg/24 hour vaginal ring Use 1 Each vaginally as directed. Insert 1 ring vaginally. Following insertion, ring should remain in place for 24 continuous days, then removed for 4 days - buPROPion XL (WELLBUTRIN XL) 150 mg 24 hr tablet take 1 tablet by mouth once daily DO NOT CRUSH, CHEW, AND/OR DIVIDE - cholecalciferol (VITAMIN D3) 50 mcg (2,000 unit) tablet Take 1,000 Units by mouth once daily. Problem List As Of Date 05/10/2024 Noted Resolved Female infertility [N97.9] 04/25/2015 12/01/2018 [...] trimester [O40.3XX0] 12/23/2020 04/09/2021 Encounter Status:Closed by LISHA CASTANEDA on 05/31/24 Normal [facility] DBT Breast - bilateral diagn ostic for implanton 05-10-2024 * * *Final Report* * * DATE OF EXAM: May 10 2024 11:08AM [facility] 0627 - ERICA DIAG W NAM ERIKA / PROCEDURE REASON: Axillary pain, left * * * * Physician Interpretation * * * * RESULT: #[id number] - ERICA DIAG W NAM ERIKA BILATERAL DIGITAL DIAGNOSTIC MAMMOGRAM TOMOSYNTHESIS WITH CAD: 05/10/2024 HISTORY: Axillary Pain, Left / Bilateral Diagnostic Mammogram/ Left pain x 1 month/ Patient due for Bilateral. RESULT: TECHNIQUE: The study was acquired using full field digital technology and interpreted from soft copy. Digital Breast Tomosynthesis (DBT) images were obtained and used to assist in the interpretation of this examination. Current study was also evaluated with a Computer Aided Detection (CAD). No prior exams were available for comparison. The breasts are extremely dense, which lowers the sensitivity of mammography. There is a biopsy clip in the left breast. No significant masses, calcifications, or other findings are seen in either breast. DIVISION OF RADIOLOGY Provider, [facility] - 05/10/2024 * * *Final Report* * * DATE OF EXAM: May 10 2024 11:08AM [facility] 0627 - ERICA DIAG W NAM ERIKA / PROCEDURE REASON: Axillary pain, left * * * * Physician Interpretation * * * * RESULT: #[id number] - ERICA DIAG W NAM ERIKA BILATERAL DIGITAL DIAGNOSTIC MAMMOGRAM TOMOSYNTHESIS WITH CAD: 05/10/2024 HISTORY: Axillary Pain, Left / Bilateral Diagnostic Mammogram/ Left pain x 1 month/ Patient due for Bilateral. RESULT: TECHNIQUE: The study was acquired using full field digital technology and interpreted from soft copy. Digital Breast Tomosynthesis (DBT) images were obtained and used to assist in the interpretation of this examination. Current study was also evaluated with a Computer Aided Detection (CAD). No prior exams were available for comparison. The breasts are extremely dense, which lowers the sensitivity of mammography. There is a biopsy clip in the left breast. No significant masses, calcifications, or other findings are seen in either breast. IMPRESSION IMPRESSION: INCOMPLETE: NEEDS ADDITIONAL IMAGING EVALUATION There is no abnormality seen in the left breast to correspond with the pain, however, ultrasound is recommended. Alis mendes/rose:05/10/2024 11:37:59 Tanning Drum Operator(s): Meme Coles [facility] Mammogram BI-RADS: 0 Incomplete: needs additional imaging evaluation Multiple national specialty organizations have released breast cancer screening guidelines for women at average risk for developing breast cancer - guidelines that are based on both evidence and opinion, yet differ on when to start and how often to screen for breast cancer. With representation from Breast Imaging, Internal Medicine, Women's Health, Family Medicine, and Medical/Surgical Oncology, the [facility] has carefully reviewed the data and reached the following consensus: 1) All women should engage in shared decision-making with their providers to decide when to start and how often to screen; 2) All women should have the opportunity to start screening mammography at age 40; 3) For women ages 45-55, we recommend annual screening mammograms; 4) For women ages 55 and over, we support both the transition from an annual to a biennial interval if this aligns more with patient's values and preferences, or continuation with annual screening; 5) All women should discuss with their providers when to stop screening mammograms. Operations Engineer: Rose Transcribe Date/Time: May 10 2024 11:08A Dictated by: ALIS MARIE MD This examination was interpreted and the report reviewed and electronically signed by: ALIS AMRIE MD on May 10 2024 11:37AM EST [facility] DBT Breast - bilateral diagn ostic for implantOrdered By: Ccf Provider on 05-10-2024 [facility] ERICA SAUNDERS W NAM Ly 2023 ERICA Coronado NAM ERIKA * * *Final Report* * * DATE OF EXAM: May 10 2024 11:08AM [facility] 0627 - ERICA Coronado NAM ERIKA / PROCEDURE REASON: Axillary pain, left * * * * Physician Interpretation * * * * RESULT: #[id number] - ERICA Coronado NAM ERIKA BILATERAL DIGITAL DIAGNOSTIC MAMMOGRAM TOMOSYNTHESIS WITH CAD: 05/10/2024 HISTORY: Axillary Pain, Left / Bilateral Diagnostic Mammogram/ Left pain x 1 month/ Patient due for Bilateral. RESULT: TECHNIQUE: The study was acquired using full field digital technology and interpreted from soft copy. Digital Breast Tomosynthesis (DBT) images were obtained and used to assist in the interpretation of this examination. Current study was also evaluated with a Computer Aided Detection (CAD). No prior exams were available for comparison. The breasts are extremely dense, which lowers the sensitivity of mammography. There is a biopsy clip in the left breast. No significant masses, calcifications, or other findings are seen in either breast. IMPRESSION: INCOMPLETE: NEEDS ADDITIONAL IMAGING EVALUATION There is no abnormality seen in the left breast to correspond with the pain, however, ultrasound is recommended. Alis mendes/rose:05/10/2024 11:37:59 Tanning Drum Operator(s): Meme Coles [facility] Mammogram BI-RADS: 0 Incomplete: needs additional imaging evaluation Multiple national specialty organizations have released breast cancer screening guidelines for women at average risk for developing breast cancer - guidelines that are based on both evidence and opinion, yet differ on when to start and how often to screen for breast cancer. With representation from Breast Imaging, Internal Medicine, Women's Health, Family Medicine, and Medical/Surgical Oncology, the [facility] has carefully reviewed the data and reached the following consensus: 1) All women should engage in shared decision-making with their providers to decide when to start and how often to screen; 2) All women should have the opportunity to start screening mammography at age 40; 3) For women ages 45-55, we recommend annual screening mammograms; 4) For women ages 55 and over, we support both the transition from an annual to a biennial interval if this aligns more with patient's values and preferences, or continuation with annual screening; 5) All women should discuss with their providers when to stop screening mammograms. Operations Engineer: Rose Transcribe Date/Time: May 10 2024 11:08A Dictated by: ALIS MARIE MD This examination was interpreted and the report reviewed and electronically signed by: ALIS MARIE MD on May 10 2024 11:37AM EST [id number] Normal [facility] US BREAST LTD LTon 05-10 [facility] US BREAST LTD LT * * *Final Report* * * DATE OF EXAM: May 10 2024 11:44AM [facility] 0593 - ERICA US BREAST LTD LT / PROCEDURE REASON: Axillary pain, left * * * * Physician Interpretation * * * * #[id number] - [facility] US BREAST LTD LT LIMITED ULTRASOUND OF LEFT BREAST: 05/10/2024 HISTORY: Axillary Pain, Left. RESULT: No prior exams were available for comparison. Real-time ultrasound of the left breast 1-2 o'clock region was performed. Gipson scale images of the real-time examination were reviewed. IMPRESSION: NEGATIVE There is no sonographic evidence of malignancy. There is no abnormality seen in the left breast to correspond with the pain, however, clinical correlation is recommended. A 1 year screening mammogram is recommended. Alis mendes/rose:05/10/2024 11:47:27 Tanning Drum Operator(s): Rosa Mata [facility] Ultrasound BI-RADS: 1 Negative Multiple national specialty organizations have released breast cancer screening guidelines for women at average risk for developing breast cancer - guidelines that are based on both evidence and opinion, yet differ on when to start and how often to screen for breast cancer. With representation from Breast Imaging, Internal Medicine, Women's Health, Family Medicine, and Medical/Surgical Oncology, the [facility] has carefully reviewed the data and reached the following consensus: 1) All women should engage in shared decision-making with their providers to decide when to start and how often to screen; 2) All women should have the opportunity to start screening mammography at age 40; 3) For women ages 45-55, we recommend annual screening mammograms; 4) For women ages 55 and over, we support both the transition from an annual to a biennial interval if this aligns more with patient's values and preferences, or continuation with annual screening; 5) All women should discuss with their providers when to stop screening mammograms. Operations Engineer: Rose Transcribe Date/Time: May 10 2024 11:45A Dictated by : ALIS MARIE MD This examination was interpreted and the report reviewed and electronically signed by: ALIS MARIE MD on May 10 2024 11:47AM EST [id number] Normal [facility] Panel Informationon 05-10 Radiology Study observation (narrative) [facility] US Breast - left limitedon 0 05-10-2024 IMPRESSION: NEGATIVE There is no sonographic evidence of malignancy. There is no abnormality seen in the left breast to correspond with the pain, however, clinical correlation is recommended. A 1 year screening mammogram is recommended. Alis mendes/rose:05/10/2024 11:47:27 Tanning Drum Operator(s): Rosa Mata [facility] Ultrasound BI-RADS: 1 Negative Multiple national specialty organizations have released breast cancer screening guidelines for women at average risk for developing breast cancer - guidelines that are based on both evidence and opinion, yet differ on when to start and how often to screen for breast cancer. With representation from Breast Imaging, Internal Medicine, Women's Health, Family Medicine, and Medical/Surgical Oncology, the [facility] has carefully reviewed the data and reached the following consensus: 1) All women should engage in shared decision-making with their providers to decide when to start and how often to screen; 2) All women should have the opportunity to start screening mammography at age 40; 3) For women ages 45-55, we recommend annual screening mammograms; 4) For women ages 55 and over, we support both the transition from an annual to a biennial interval if this aligns more with patient's values and preferences, or continuation with annual screening; 5) All women should discuss with their providers when to stop screening mammograms. Operations Engineer: Rose Transcribe Date/Time: May 10 2024 11:45A Dictated by : ALIS MARIE MD This examination was interpreted and the report reviewed and electronically signed by: ALIS MARIE MD on May 10 2024 11:47AM EST DIVISION OF RADIOLOGY * * *Final Report* * * DATE OF EXAM: May 10 2024 11:44AM [facility] 0593 - ERICA US BREAST LTD LT / PROCEDURE REASON: Axillary pain, left * * * * Physician Interpretation * * * * #[id number] - ERICA US BREAST LTD LT LIMITED ULTRASOUND OF LEFT BREAST: 05/10/2024 HISTORY: Axillary Pain, Left. RESULT: No prior exams were available for comparison. Real-time ultrasound of the left breast 1-2 o'clock region was performed. Gipson scale images of the real-time examination were reviewed. DIVISION OF RADIOLOGY [facility], [facility] * * *Final Report* * * DATE OF EXAM: May 10 2024 11:44AM [facility] 0593 - ERICA US BREAST LTD LT / PROCEDURE REASON: Axillary pain, left * * * * Physician Interpretation * * * * #[id number] - ERICA US BREAST LTD LT LIMITED ULTRASOUND OF LEFT BREAST: 05/10/2024 HISTORY: Axillary Pain, Left. RESULT: No prior exams were available for comparison. Real-time ultrasound of the left breast 1-2 o'clock region was performed. Gipson scale images of the real-time examination were reviewed. IMPRESSION IMPRESSION: NEGATIVE There is no sonographic evidence of malignancy. There is no abnormality seen in the left breast to correspond with the pain, however, clinical correlation is recommended. A 1 year screening mammogram is recommended. Alis mendes/rose:05/10/2024 11:47:27 Tanning Drum Operator(s): Rosa Mata [facility] Ultrasound BI-RADS: 1 Negative Multiple national specialty organizations have released breast cancer screening guidelines for women at average risk for developing breast cancer - guidelines that are based on both evidence and opinion, yet differ on when to start and how often to screen for breast cancer. With representation from Breast Imaging, Internal Medicine, Women's Health, Family Medicine, and Medical/Surgical Oncology, the [facility] has carefully reviewed the data and reached the following consensus: 1) All women should engage in shared decision-making with their providers to decide when to start and how often to screen; 2) All women should have the opportunity to start screening mammography at age 40; 3) For women ages 45-55, we recommend annual screening mammograms; 4) For women ages 55 and over, we support both the transition from an annual to a biennial interval if this aligns more with patient's values and preferences, or continuation with annual screening; 5) All women should discuss with their providers when to stop screening mammograms. Operations Engineer: Rose Transcribe Date/Time: May 10 2024 11:45A Dictated by : ALIS MARIE MD This examination was interpreted and the report reviewed and electronically signed by: ALIS MARIE MD on May 10 2024 11:47AM EST [facility] US Breast - left limitedOrde red By: Ccf Provider on 05-10-2024 [facility] Orthopedic Visit Reporton Orthopedic Visit Report [facility] [address] [place] [address] OFFICE VISIT Date of Service: 05/05/24 MR#: [id number] Acct: [id number] Name: VI VELA Rep #: [id number] : 1980 Provider: Dr. Mac Mcintyre MD Age/Sex: 43/F Location: [facility].SHELLI Status: Signed Intake Vital Signs 05/14/23 17:39 05/05/24 08:24 Height 5 ft 4 in 5 ft 4 in Weight: 153 lb BMI 26.2 Intake Visit Reasons: LUMBAR SPINE Chief Complaint: Low back pain Allergies morphine Adverse Reaction (Verified 05/05/24 08:26) Itching Medications ???Medication ???Instructions ???Recorded ???Confirmed ???Type vits,calcium no.78-iron 1 tab PO DAILY 05/13/16 05/05/24 History fumarate-folic acid 29 mg-1 mg tablet ibuprofen 600 mg tablet 600 mg PO Q6H PRN PRN Pain Score 12/29/20 05/05/24 Rx 1-3 #30 tabs cholecalciferol (vitamin D3) 25 25 mcg PO DAILY 04/24/21 05/05/24 History mcg (1,000 unit) chewable tablet (Vitamin D3) citalopram 40 mg tablet 40 mg PO DAILY 04/24/21 05/05/24 History bupropion HCl 150 mg 24 hr tablet, 150 mg PO QDAY 05/05/24 05/05/24 History extended release tizanidine 2 mg tablet 2 mg PO QHS 05/05/24 05/05/24 History PFSH Medical History Wears glasses Wears contact lenses Anxiety Alcohol use Back pain Injury of back Former smoker History of herniated intervertebral disc Stomach ulcer Surgical History Hx of laparoscopy History of tonsillectomy History of cholecystectomy History of foot surgery History of delivery Family History Other Alcoholism CVA (cerebral vascular accident) Heart disease Osteoporosis Thyroid disorder Social History Smoking Status: Former smoker alcohol intake: current alcohol intake frequency: holidays/special occasions only substance use type: does not use what type of physical activity do you participate in: yoga frequency: 3-4 times per week HPI LUMBAR SPINE Chief Complaint: lumbar spine Details: This documentation accurately reflects the service provided and the decisions made by me, Dr. Mac Mcintyre MD 05/05/24 0821. Part of today???s visit was documented by [ ], acting as scribe. VI VELA is a 43 year old F here today for low back pain. Pt. advises she has had a herniated disc for 11 years but has been experiencing increased pain for a about a year and a brian f. She states she fell down her stairs in August of 2022. She was seen at the [facility] where xrays of her right hip were taken and were negative for fracture. She continued to have pain and had been seeing Dr. Baires for senior care provider. She states the pain is actually worse on the left side of her low back. She has done PT as well as pain management for injections and nerve ablations with Dr. Meadows. Dr. Baires ordered an lumbar spine MRI. She has been seeing Dr. Adams at the [facility] who recommended a disc replacement but it was denied her insurance. Vi had a lumbar disc herniation about 11 years ago which was treated with epidural injections and her radicular pain resolved over 6 months. She then had back pain localized over the left SI joint region during her 2 pregnancies 3 and 5 years ago. After these pregnancies she did receive SI joint injections which seem to help back then. About 2 years ago she had a bad fall towards her right hip and severe aggravation of her pain. Her pain starts in the lower back towards the left going to the left buttock region. She denies any tingling numbness of the lower extremities. She is able to walk good amounts of distances but standing and sitting for long peers of time becomes a problem. She has had numerous injections through pain management over the last 2 years without significant help. She also tried physical therapy and chiropractic treatment which also did not give her persistent relief. Ortho Exam General General: Yes no acute distress Neurologic: Yes alert and Yes oriented x3 Spine SPINE TESTING CERVICAL THORACIC LUMBAR Musculoskeletal Strength 0=absent - 5=normal Details: Examination the back shows left paraspinal tenderness to lower lumbar spine. Neurologic motion of lower extremity shows 5 x 5 power normal shows normal sensations in all dermatomes. Passive str aight leg raise test is positive on the left. Figure 4 testing does not elicit pain. Gaenslen test negative. Coding Level of Care Code Off vis,new,level 4 Diagnoses Other intervertebral disc degeneration, lumbar region M51.36 Spondylolisthesis, lumbar region M43.16 Time Spent (min) 45 Asses (more content not included)... [facility] Office Visit (OBGYWM ) VI VELA ([id number]) 1980 F Date Time Provider Department 04/14/24 2:45 PM LISHA CASTANEDA During your visit today, we recorded the following information about you: Blood pressure Weight Height Last Period 110/68 69.4 kg 1.626 m 03/27/24 Lisha Castaneda APRN.CNP 04/14/2024 3:05 PM Signed Reeling Operator offered: Patient declines. Lebron is a 43 year old who presents for an annual gynecologic exam with complaints of stress incontinence. Menses: cycles every 30 days and 4 days of flow. 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 No bloating, early satiety, indigestion, or increased flatulence. Bladder: No dysuria, gross hematuria, urinary frequency, urinary urgency + stress incontinence Breast: No breast lumps, nipple d/c, overlying skin changes, redness or skin retraction. + pain to left sided lymph node Allergies and current medication updated:Yes EXAM: BP 110/68 Ht 5' 4 (1.63m) Wt 153 lb (69.4kg) LMP 03/27/2024 BMI 26.25 kg/(m2). GENERAL: pleasant, female in no apparent [...] external genitalia normal, normal Bartholin's glands, urethra, Raeville's glands, no vulvar lesions, no cervical lesions, + 1st degree cystocele, physiologic discharge present, normal appearing perineal body and perianal region BIMANUAL: uterus normal size, shape and consistency, no adnexal masses, and non-tender RECTOVAGINAL: deferred. NEURO: alert and oriented x3,exam grossly non-focal EXTREMITIES: normal ASSESSMENT/PLAN: 1) Health maintenance: Pap/HPV up to date. Nutrition, exercise and routine health maintenance exams reviewed. Lipids/glucose: followed by PCP HPV vaccine: interested, literature given 2) Contraception: Annovera and tubal sterilization. Contraceptive options reviewed and information provided. 3) STD screening: Declined STD check. 4) Follow up one year or sooner as n (more content not included)... Normal [facility] 36on 02-23-2024 36 SURGERY: [facility] DR ADAMS/MARIE OPEN & CLOSE ALIF L5-S1 DATE OF SURGERY: 03/08/24 7:30 AM CPT 28103 Normal [facility] STREP A MOLECULAR (POC)on Procedural Control Valid [facility] Strep A (POCT) Negative Negative [facility] XR FOOT GENERAL 3V AP/LAT/OB L LEFTon 04-09-2022 [facility] Vital Signs Date Time Vital Sign Value Performing Clinician Facility 04-20-2025 12:36-0400 Body height 162.56 cm Dolores Mann TEXTILE MACHINERY INSTRUCTOR-C Work Phone: [facility] 04-20-2025 12:36-0400 Body mass index (BMI) [Ratio] 25.7 kg/m2 Dolores Mann TEXTILE MACHINERY INSTRUCTOR-C Work Phone: [facility] 04-20-2025 12:36-0400 Body weight 68.03 kg Dolores Mann TEXTILE MACHINERY INSTRUCTOR-C Work Phone: [facility] 04-20-2025 12:36-0400 Diastolic blood pressure 81 mm[Hg] Dolores Mann TEXTILE MACHINERY INSTRUCTOR-C Work Phone: [facility] 04-20-2025 12:36-0400 Respiratory rate 16 /min Dolores Mann TEXTILE MACHINERY INSTRUCTOR-C Work Phone: [facility] 04-20-2025 12:36-0400 Systolic blood pressure 130 mm[Hg] Dolores Mann TEXTILE MACHINERY INSTRUCTOR-C Work Phone: [facility] 04-17-2025 01:48-0400 Body temperature 98.3 [degF] Dolores Mann TEXTILE MACHINERY INSTRUCTOR-C Work Phone: [facility] 04-17-2025 01:48-0400 Diastolic blood pressure 85 mm[Hg] Dolores Mann TEXTILE MACHINERY INSTRUCTOR-C Work Phone: [facility] 04-17-2025 01:48-0400 Heart rate 73 /min Dolores Mann TEXTILE MACHINERY INSTRUCTOR-C Work Phone: [facility] 04-17-2025 01:48-0400 Respiratory rate 16 /min Dolores Mann TEXTILE MACHINERY INSTRUCTOR-C Work Phone: [facility] 04-17-2025 01:48-0400 SaO2% (BldA) [Mass fraction] 97 % Dolores Mann TEXTILE MACHINERY INSTRUCTOR-C Work Phone: [facility] 04-17-2025 01:48-0400 Systolic blood pressure 118 mm[Hg] Dolores Mann TEXTILE MACHINERY INSTRUCTOR-C Work Phone: [facility] 04-16-2025 18:10-0400 Body height 162.56 cm Dolores Lizarragasey TEXTILE MACHINERY INSTRUCTOR-C Work Phone: [facility] 04-16-2025 18:10-0400 Body mass index (BMI) [Ratio] 25.9 kg/m2 Dolores Mann TEXTILE MACHINERY INSTRUCTOR-C Work Phone: [facility] 04-16-2025 18:10-0400 Body weight 68.67 kg Dolores Lizarragasey TEXTILE MACHINERY INSTRUCTOR-C Work Phone: [facility] 03-16-2025 01:04-0400 Body temperature 98 [degF] Dolores Lizarragasey TEXTILE MACHINERY INSTRUCTOR-C Work Phone: [facility] 03-16-2025 01:04-0400 Diastolic blood pressure 80 mm[Hg] Dolores Lizarragasey TEXTILE MACHINERY INSTRUCTOR-C Work Phone: [facility] 03-16-2025 01:04-0400 Heart rate 68 /min Dolores Lizarragasey TEXTILE MACHINERY INSTRUCTOR-C Work Phone: [facility] 03-16-2025 01:04-0400 Respiratory rate 12 /min Dolores Lizarragasey TEXTILE MACHINERY INSTRUCTOR-C Work Phone: [facility] 03-16-2025 01:04-0400 SaO2% (BldA) [Mass fraction] 100 % Dolores Mann TEXTILE MACHINERY INSTRUCTOR-C Work Phone: [facility] 03-16-2025 01:04-0400 Systolic blood pressure 112 mm[Hg] Dolores Mann TEXTILE MACHINERY INSTRUCTOR-C Work Phone: [facility] 03-15-2025 23:23-0400 Body mass index (BMI) [Ratio] 26.4 kg/m2 Dolores Mann NP-C Work Phone: [facility] 03-15-2025 23:23-0400 Body weight 69.9 kg Dolores SANTOSC Work Phone: [facility] 10-02-2024 13:23-0500 Body mass index (BMI) [Ratio] 27.29 kg/m2 Dragan Portillo MD Work Phone: [facility] 10-02-2024 13:23-0500 Body weight 72.12 kg Dragan Portillo MD Work Phone: [facility] 10-02-2024 13:23-0500 Diastolic blood pressure 62 mm[Hg] Dragan Portillo MD Work Phone: [facility] 10-02-2024 13:23-0500 Systolic blood pressure 104 mm[Hg] Dragan Portillo MD Work Phone: [facility] 07-14-2024 08:34-0400 Body mass index (BMI) [Ratio] 26.43 kg/m2 Dragan Portillo MD Work Phone: [facility] 07-14-2024 08:34-0400 Body weight 69.85 kg Dragan Portillo MD Work Phone: [facility] 07-14-2024 08:34-0400 Diastolic blood pressure 78 mm[Hg] Dragan Portillo MD Work Phone: [facility] 07-14-2024 08:34-0400 Systolic blood pressure 122 mm[Hg] Dragan Portillo MD Work Phone: [facility] 07-11-2024 11:11-0400 Body mass index (BMI) [Ratio] 26.26 kg/m2 Dragan Portillo MD Work Phone: [facility] 07-11-2024 11:11-0400 Body weight 69.4 kg Dragan Portillo MD Work Phone: [facility] 07-11-2024 11:11-0400 Diastolic blood pressure 74 mm[Hg] Dragan Portillo MD Work Phone: [facility] 07-11-2024 11:11-0400 Systolic blood pressure 118 mm[Hg] Dragan Portillo MD Work Phone: [facility] 05-22-2024 13:00-0400 Diastolic Blood Pressure Non-Invasive 78 mm[Hg] DR NESS WRAY MD [facility] 05-22-2024 13:00-0400 Heart rate 75 /min DR NESS WRAY MD [facility] 05-22-2024 13:00-0400 Respiratory rate 14 /min DR NESS WRAY MD [facility] 05-22-2024 13:00-0400 Systolic Blood Pressure Non-Invasive 111 mm[Hg] DR NESS WRAY MD [facility] 05-22-2024 12:57-0400 Diastolic Blood Pressure Non-Invasive 76 mm[Hg] DR NESS WRAY MD [facility] 05-22-2024 12:57-0400 Heart rate 83 /min DR NESS WRAY MD [facility] 05-22-2024 12:57-0400 Respiratory rate 13 /min DR NESS WRAY MD [facility] 05-22-2024 12:57-0400 Systolic Blood Pressure Non-Invasive 113 mm[Hg] DR NESS WRAY MD [facility] 05-22-2024 12:48-0400 Diastolic Blood Pressure Non-Invasive 74 mm[Hg] DR NESS WRAY MD [facility] 05-22-2024 12:48-0400 Heart rate 81 /min DR NESS WRAY MD [facility] 05-22-2024 12:48-0400 Respiratory rate 15 /min DR NESS WRAY MD [facility] 05-22-2024 12:48-0400 Systolic Blood Pressure Non-Invasive 108 mm[Hg] DR NESS WRAY MD [facility] 05-22-2024 12:38-0400 Body temperature 97.7 [degF] DR NESS WRAY MD [facility] 05-22-2024 12:35-0400 Respiratory Rate - Anes 20 br/min DR NESS WRAY MD [facility] 05-22-2024 12:30-0400 Respiratory Rate - Anes 22 br/min DR NESS WRAY MD [facility] 05-22-2024 12:25-0400 Respiratory Rate - Anes 18 br/min DR NESS WRAY MD [facility] 05-22-2024 11:44-04[address] Pressure Cuff Size DR NESS RWAY MD [facility] 05-22-2024 11:44-[address] NESS WRAY MD [facility] 05-22-2024 11:44-[address] NESS WRAY MD [facility] 05-22-2024 11:44-0400 Body height [address] NESS WRAY MD [facility] 05-22-2024 11:44-0400 Body temperature 98.78 [degF] DR NESS WRAY MD [facility] 05-22-2024 11:44-0400 Body weight 98.[address] NESS WRAY MD [facility] 05-22-2024 11:44-0400 Body weight 36.96 kg/m2 DR NESS WRAY MD [facility] 05-22-2024 11:44-0400 Heart rate 82 /min DR NESS WRAY MD [facility] 04-14-2024 14:43-0400 Body height 162.6 cm Lisha Haury AGRICULTURAL CONSULTANT.CUTTING TOOL SHARPENER Work Phone: [facility] 04-14-2024 14:43-0400 Body mass index (BMI) [Ratio] 26.26 kg/m2 Lisha Haury AGRICULTURAL CONSULTANT.CUTTING TOOL SHARPENER Work Phone: [facility] 04-14-2024 14:43-0400 Body weight 69.4 kg Lisha Haury AGRICULTURAL CONSULTANT.CUTTING TOOL SHARPENER Work Phone: [facility] 04-14-2024 14:43-0400 Diastolic blood pressure 68 mm[Hg] Lisha Haury AGRICULTURAL CONSULTANT.CUTTING TOOL SHARPENER Work Phone: [facility] 04-14-2024 14:43-0400 Systolic blood pressure 110 mm[Hg] Lisha Haury AGRICULTURAL CONSULTANT.CUTTING TOOL SHARPENER Work Phone: [facility] 10-11-2023 08:26-0500 Body temperature 97.39 [degF] Sahra Carlson AGRICULTURAL CONSULTANT.CUTTING TOOL SHARPENER Work Phone: [facility] 10-11-2023 08:26-0500 Body weight 69.76 kg Sahra Carlson AGRICULTURAL CONSULTANT.CUTTING TOOL SHARPENER Work Phone: [facility] 10-11-2023 08:26-0500 Diastolic blood pressure 72 mm[Hg] Sahra Carlson AGRICULTURAL CONSULTANT.CUTTING TOOL SHARPENER Work Phone: [facility] 10-11-2023 08:26-0500 Heart rate 96 /min Sahra Carlson AGRICULTURAL CONSULTANT.CUTTING TOOL SHARPENER Work Phone: [facility] 10-11-2023 08:26-0500 Respiratory rate 16 /min Sahra Carlson AGRICULTURAL CONSULTANT.CUTTING TOOL SHARPENER Work Phone: [facility] 10-11-2023 08:26-0500 SaO2% (BldA) [Mass fraction] 97 % Sahra Carlson AGRICULTURAL CONSULTANT.CUTTING TOOL SHARPENER Work Phone: [facility] 10-11-2023 08:26-0500 Systolic blood pressure 122 mm[Hg] Sahra Carlson AGRICULTURAL CONSULTANT.CUTTING TOOL SHARPENER Work Phone: [facility] 05-14-2023 19:45-0400 Diastolic blood pressure 84 mm[Hg] [facility] 05-14-2023 19:45-0400 Heart rate 80 /min [facility] 05-14-2023 19:45-0400 Respiratory rate 18 /min [facility] 05-14-2023 19:45-0400 Systolic blood pressure 118 mm[Hg] [facility] 05-14-2023 17:39-0400 Body height 162.56 cm [facility] 05-14-2023 17:39-0400 Body mass index (BMI) [Ratio] 27 kg/m2 [facility] 05-14-2023 17:39-0400 Body temperature 98.3 [degF] [facility] 05-14-2023 17:39-0400 Body weight 71.35 kg [facility] 05-14-2023 17:39-0400 SaO2% (BldA) [Mass fraction] 99 % [facility] 03-11-2023 08:29-0400 Body height 163.8 cm Dragan Portillo MD Work Phone: [facility] 03-11-2023 08:29-0400 Body weight 67.59 kg Dragan Portillo MD Work Phone: [facility] 03-11-2023 08:29-0400 Diastolic blood pressure 62 mm[Hg] Dragan Portillo MD Work Phone: [facility] 03-11-2023 08:29-0400 Systolic blood pressure 104 mm[Hg] Dragan Portillo MD Work Phone: [facility] 02-11-2022 14:21-0400 Body height 163.8 cm Dragan Portillo MD Work Phone: [facility] 02-11-2022 14:21-0400 Body weight 70.31 kg Dragan Portillo MD Work Phone: [facility] 02-11-2022 14:21-0400 Diastolic blood pressure 72 mm[Hg] Dragan Portillo MD Work Phone: [facility] 02-11-2022 14:21-0400 Systolic blood pressure 102 mm[Hg] Dragan Portillo MD Work Phone: [facility] Encounters Encounter Date Encounter Type Care Provider Facility Start: 04-25-2025 ambulatory Rajinder Gold Facility: [facility] Start: 04-23-2025 Encounter for other preprocedural examination Rajinder Gold [facility] Start: 04-20-2025 End: 04-20-[address] Rajinder Glod MD -[facility] Work Phone: Start: 04-20-2025 End: 04-20-2025 ambulatory Dolores Mann NP-C Work Phone: [facility] Work Phone: Start: 04-17-2025 ambulatory Rajinder Gold Facility: [facility] Start: 04-17-2025 Non-patient / Non-visit Dr. Rajinder Gold MD -[facility] Start: 04-16-2025 End: 04-17-2025 Emergency department patient visit Dolores Mann NP-C Work Phone: -Emergency Department Work Phone: Start: 04-12-2025 End: 04-12-2025 Patient encounter procedure Park Walters NP-C -Ultrasound [facility] Work Phone: Start: 04-12-2025 End: 04-12-2025 ambulatory Park Walters Facility:[facility] Start: 04-06-2025 End: 04-06-2025 Patient encounter procedure Park CARLSON -[facility] Work Phone: Start: 04-06-2025 End: 04-06-2025 ambulatory Dolores Mann Facility:[facility] Start: 03-15-2025 End: 03-16-2025 Emergency department patient visit Dr. Austin Rhodes DO -Emergency Department Work Phone: Start: 12-04-2024 End: 12-04-2024 ambulatory [facility] Facility:[facility] Start: 12-04-2024 End: 12-04-2024 ambulatory [facility] Facility:[facility] Start: 12-04-2024 End: 12-04-2024 Subsequent hospital visit by physician [employer] [facility] (I-Stat/1.5t) Work Phone: Radiology Comment on above: Pelvic and perineal pain [R10.2] Start: 11-07-2024 End: 11-07-2024 ambulatory [facility] Facility:[facility] Start: 10-31-2024 End: 10-31-2024 ambulatory BERHANE BANNER MD [facility] Facility:[facility] Start: 10-27-2024 End: 10-27-2024 ambulatory [facility] Facility:[facility] Start: 10-27-2024 End: 10-27-2024 Manual pelvic examination Berhane Ferrell APRN.CUTTING TOOL SHARPENER Work Phone: Gynecology Comment on above: Menorrhagia with reg ular cycle (Primary Dx); Pelvic and perineal pain; Ovarian cyst, right; Dysmenorrhea; Deep dyspareunia; Endometriosis Start: 10-27-2024 End: 10-27-2024 Telemedicine consultation with patient Berhane Anabelaer AGRICULTURAL CONSULTANT.CUTTING TOOL SHARPENER Work Phone: Gynecology Start: 10-10-2024 End: 10-10-2024 ambulatory Dolores Mann Facility:[facility] Start: 10-03-2024 End: 10-03-2024 Telephone encounter Dragan Portillo MD Work Phone: OB/Gynecology Comment on above: Patient Question Start: 10-02-2024 End: 10-02-2024 ambulatory LISHA CASTANEDA Facility:[facility] Start: 10-02-2024 End: 10-02-2024 Patient encounter procedure Dragan Portillo MD Work Phone: OB/Gynecology Comment on above: Endometriosis (Prima ry Dx); Menorrhagia with regular cycle Start: 09-15-2024 End: 09-15-2024 Telephone encounter Lisha Castaneda APRN.[facility] Work Phone: OB/Gynecology Comment on above: Results Start: 09-12-2024 End: 09-12-2024 ambulatory [employer] Work Phone: OB/Gynecology Start: 09-12-2024 End: 09-12-2024 Patient encounter procedure Fuel Conversion Technician [employer] Work Phone: OB/Gynecology Start: 09-11-2024 End: 09-11-2024 Telephone encounter Dragan Portillo MD Work Phone: OB/Gynecology Comment on above: IUD Start: 08-31-2024 End: 08-31-2024 ambulatory Dolores Mann Facility:[facility] Start: 08-03-2024 End: 08-03-2024 ambulatory Dolores Mann Facility:[facility] Start: 07-18-2024 ambulatory Mac Mcintyre [facility] Start: 07-18-2024 End: 07-19-2024 ambulatory Mac Mcintyre Facility:[facility] Start: 07-18-2024 ambulatory Mac Mcintyre [facility] Start: 07-14-2024 End: 07-14-2024 ambulatory DRAGAN PORTILLO Facility:[facility] Start: 07-14-2024 End: 07-14-2024 Patient encounter procedure Dragan Portillo MD Work Phone: OB/Gynecology Comment on above: Encounter for IUD in sertion (Primary Dx); mood disturbance Start: 07-11-2024 End: 07-11-2024 ambulatory MARYCRUZ MCCLURE Facility:[facility] Start: 07-11-2024 End: 07-11-2024 Patient encounter procedure Dragan Portillo MD Work Phone: OB/Gynecology Comment on above: Encounter for IUD in sertion (Primary Dx); Endometriosis; Menorrhagia with regular cycle; PMS (premenstrual syndrome) Start: 07-07-2024 End: 07-07-2024 ambulatory Mac Mcintyre Facility:[facility] Start: 07-07-2024 End: 07-07-2024 ambulatory DOLORES MANN AGRICULTURAL CONSULTANT-CUTTING TOOL SHARPENER Facility:[facility] Start: 07-07-2024 End: 07-07-2024 Patient encounter procedure DOLORES MANN AGRICULTURAL CONSULTANT-CUTTING TOOL SHARPENER [facility] Start: 06-22-2024 ambulatory Dragan oh MD Work Phone: OB/Gynecology Comment on above: control for en dometriosis Start: 06-05-2024 End: 06-05-2024 ambulatory MARYCRUZ MCCLURE Facility:[facility] Start: 06-05-2024 End: 06-05-2024 Telemedicine consultation with patient Rai You AGRICULTURAL CONSULTANT.CUTTING TOOL SHARPENER Work Phone: Telemedicine Comment on above: Redness of left eye (Primary Dx) Start: 05-22-2024 End: 05-22-[address] NESS WRAY MD Facility:[facility] Start: 05-22-2024 End: 05-22-[address] NESS WRAY MD [facility] Start: 05-10-2024 Telephone encounter Lisha Kmible mahsa AGRICULTURAL CONSULTANT.CUTTING TOOL SHARPENER Work Phone: OB/Gynecology Comment on above: Results Start: 05-10-2024 End: 05-10-2024 ambulatory MARYCRUZ MCCLURE Facility:[facility] Start: 05-10-2024 End: 05-10-2024 Subsequent hospital visit by physician Diagnostic Mammo [facility] Comment on above: Axillary pain, left [M79.622] Start: 05-05-2024 End: 05-05-2024 ambulatory Mac Mcintyre Facility:[facility] Start: 04-20-2024 Refill Dragan oh MD Work Phone: OB/Gynecology Comment on above: Refill Request Start: 04-20-2024 End: 09-18-2024 Refill Dragan Portillo MD Work Phone: OB/Gynecology Comment on above: Refill Request Start: 04-14-2024 End: 04-14-2024 ambulatory LISHA CASTANEDA Facility:[facility] Start: 04-14-2024 End: 04-14-2024 Patient encounter procedure Lisha Castaneda AGRICULTURAL CONSULTANT.CUTTING TOOL SHARPENER Work Phone: OB/Gynecology Comment on above: Encounter for gyneco logical examination (general) (routine) without abnormal findings (Primary Dx); Encounter for screening mammogram for malignant neoplasm of breast; Urinary, incontinence, stress female; Axillary pain, left Start: 04-14-2024 End: 04-14-2024 Patient encounter status Lisah Castaneda AGRICULTURAL CONSULTANT.CUTTING TOOL SHARPENER Work Phone: [facility] Start: 02-28-2024 Refill Dragan oh MD Work Phone: OB/Gynecology Comment on above: Refill Request Start: 12-27-2023 End: 12-27-2023 Patient encounter procedure TEXTILE MACHINERY INSTRUCTOR-C Prachi Hatch TEXTILE MACHINERY INSTRUCTOR Work Phone: [facility] Work Phone: Start: 12-20-2023 End: 12-20-2023 ambulatory TEXTILE MACHINERY INSTRUCTOR-C Prachi Hatch TEXTILE MACHINERY INSTRUCTOR Work Phone: [facility] Work Phone: Start: 12-20-2023 End: 12-20-2023 Patient encounter procedure TEXTILE MACHINERY INSTRUCTOR-Radha Hatch TEXTILE MACHINERY INSTRUCTOR Work Phone: [facility] Work Phone: Start: 12-13-2023 Registered Recurring TEXTILE MACHINERY INSTRUCTOR-Radha Hatch TEXTILE MACHINERY INSTRUCTOR Work Phone: [facility]-Physical Therapy Work Phone: Start: 12-08-2023 End: 12-08-2023 Patient encounter procedure TEXTILE MACHINERY INSTRUCTOR-C Prachi Millerlogar TEXTILE MACHINERY INSTRUCTOR Work Phone: [facility] Work Phone: Start: 12-06-2023 End: 12-06-2023 ambulatory TEXTILE MACHINERY INSTRUCTOR-C Prachi Podlogar TEXTILE MACHINERY INSTRUCTOR Work Phone: [facility] Work Phone: Start: 12-06-2023 End: 12-06-2023 Discharged Recurring TEXTILE MACHINERY INSTRUCTOR-C Prachi Millerlogar TEXTILE MACHINERY INSTRUCTOR Work Phone: [facility]-Physical Therapy Work Phone: Start: 12-01-2023 ambulatory Marycruz Mcclure MD Work Phone: Internal Medicine [facility] Start: 12-01-2023 End: 12-01-2023 Patient encounter procedure TEXTILE MACHINERY INSTRUCTOR-C Prachi Podlogar TEXTILE MACHINERY INSTRUCTOR Work Phone: [facility] Work Phone: Start: 11-17-2023 End: 11-17-2023 Patient encounter procedure TEXTILE MACHINERY INSTRUCTOR-C Prachi Millerlogar TEXTILE MACHINERY INSTRUCTOR Work Phone: [facility] Work Phone: Start: 10-28-2023 End: 10-28-2023 Patient encounter procedure TEXTILE MACHINERY INSTRUCTOR-C Prachi Podlogar TEXTILE MACHINERY INSTRUCTOR Work Phone: [facility] Work Phone: Start: 10-13-2023 End: 10-13-2023 Patient encounter procedure TEXTILE MACHINERY INSTRUCTOR-C Prachi Podlogar TEXTILE MACHINERY INSTRUCTOR Work Phone: [facility] Work Phone: Start: 10-11-2023 End: 10-11-2023 Patient encounter procedure Sahra Carlson AGRICULTURAL CONSULTANTJoseeCUTTING TOOL SHARPENER Work Phone: [facility] Comment on above: Upper respiratory tr act infection, unspecified type (Primary Dx) Start: 06-17-2023 ambulatory Dragan oh MD Work Phone: OB/Gynecology Comment on above: Medication question Start: 05-14-2023 End: 05-14-2023 [facility] Start: 03-11-2023 Refill Dragan oh MD Work Phone: OB/Gynecology Comment on above: Refill Request Start: 03-11-2023 End: 03-11-2023 Patient encounter procedure Dragan Portillo MD Work Phone: OB/Gynecology Comment on above: Encounter for gyneco logical examination (general) (routine) without abnormal findings (Primary Dx) Start: 03-11-2023 End: 03-11-2023 Patient encounter status Dragan Portillo MD Work Phone: OB/Gynecology Start: 12-22-2022 ambulatory Dragan oh MD Work Phone: OB/Gynecology Comment on above: control questi on Start: 12-01-2022 End: 12-01-2022 Patient encounter procedure TEXTILE MACHINERY INSTRUCTOR-C Prachi Hatch TEXTILE MACHINERY INSTRUCTOR Work Phone: [facility] Start: 11-27-2022 End: 11-27-2022 ambulatory Dragan Portillo MD Work Phone: OB/Gynecology Comment on above: Menorrhagia with reg ular cycle (Primary Dx) Start: 11-27-2022 End: 11-27-2022 Telemedicine consultation with patient Dragan Portillo MD Work Phone: [facility] Start: 11-20-2022 Admission to [facility] [place] Chauhan Work Phone: Podiatry Comment on above: Delay Foot Surgery Start: 11-20-2022 ambulatory Cleveland brady Work Phone: [facility] Start: 11-17-2022 End: 11-17-2022 Patient encounter procedure TEXTILE MACHINERY INSTRUCTOR-C Prachi Millerlogjulián TEXTILE MACHINERY INSTRUCTOR Work Phone: [facility] Start: 11-16-2022 End: 11-16-2022 ambulatory TEXTILE MACHINERY INSTRUCTOR-Radha Hatch TEXTILE MACHINERY INSTRUCTOR Work Phone: [facility] Work Phone: Start: 11-16-2022 End: 11-16-2022 Patient encounter procedure TEXTILE MACHINERY INSTRUCTOR-Radha Hatch TEXTILE MACHINERY INSTRUCTOR Work Phone: [facility] Start: 11-12-2022 ambulatory Dragan oh MD Work Phone: OB/Gynecology Comment on above: control Start: 11-02-2022 Telephone encounter Cleveland Myers Work Phone: Podiatry Comment on above: schedule surgery Start: 11-02-2022 End: 11-02-2022 Patient encounter procedure TEXTILE MACHINERY INSTRUCTOR-Radha Hatch TEXTILE MACHINERY INSTRUCTOR Work Phone: [facility] Start: 10-26-2022 End: 10-26-2022 Patient encounter procedure Cleveland Chauhan Work Phone: Podiatry Comment on above: Tailor's bunion of l eft foot (Primary Dx); Acquired hallux valgus of left foot Start: 10-19-2022 End: 10-19-2022 Patient encounter procedure ALDO Hatch TEXTILE MACHINERY INSTRUCTOR Work Phone: [facility] Start: 10-05-2022 End: 10-05-2022 Patient encounter procedure TEXTILE MACHINERY INSTRUCTOR-Radha Millerlogar TEXTILE MACHINERY INSTRUCTOR Work Phone: [facility] Start: 09-21-2022 End: 09-21-2022 Patient encounter procedure TEXTILE MACHINERY INSTRUCTOR-Radha Velarde Podlogar TEXTILE MACHINERY INSTRUCTOR Work Phone: [facility] Start: 09-10-2022 End: 09-10-2022 Patient encounter procedure Cleveland Chauhan Work Phone: Podiatry Comment on above: Tailor's bunion of l eft foot (Primary Dx); Acquired hallux valgus of left foot Start: 09-07-2022 End: 09-07-2022 Patient encounter procedure ALDO Hatch TEXTILE MACHINERY INSTRUCTOR Work Phone: [facility] Start: 08-06-2022 End: 08-06-2022 Patient encounter procedure ALDO Hatch NP Work Phone: [facility] Start: 05-27-2022 End: 05-27-2022 Patient encounter procedure Cleveland Tien Work Phone: Podiatry Comment on above: Bursitis of left juliet t (Primary Dx); Tailor's bunion of left foot; Acquired hallux valgus of left foot Start: 04-09-2022 End: 04-09-2022 Patient encounter procedure [place] Chauhan Work Phone: Podiatry Comment on above: Bursitis of left juliet t (Primary Dx); Tailor's bunion of left foot; Acquired hallux valgus of left foot Start: 04-09-2022 End: 04-09-2022 Subsequent hospital visit by physician [facility] Sha Work Phone: Radiology Comment on above: Pain [R52] Start: 02-11-2022 End: 02-11-2022 Patient encounter procedure Dragan Portillo MD Work Phone: OB/Gynecology Comment on above: Encounter for gyneco logical examination (general) (routine) without abnormal findings; Encounter for screening mammogram for breast cancer; mood disturbance Start: 02-11-2022 End: 02-11-2022 Patient encounter status Dragan Portillo MD Work Phone: OB/Gynecology Procedures Date Procedure Procedure Detail Performing Clinician Start: 04-16-2025 US scan of gallbladder Dolores SANTOS C Work Phone: Start: 04-16-2025 Urnls dip stick/tablet reagent auto microscopy Dolores SANTOSC Work Phone: Start: 04-16-2025 Estimated creatinine clearance Dolores Mann TEXTILE MACHINERY INSTRUCTOR-C Work Phone: Start: 04-12-2025 US scan of gallbladder Dolores Mann TEXTILE MACHINERY INSTRUCTOR- C Work Phone: Start: 03-15-2025 Urnls dip stick/tablet reagent auto microscopy Dolores Mann TEXTILE MACHINERY INSTRUCTOR-C Work Phone: Start: 03-15-2025 Computed tomography of abdomen and pelvis with intravenous contrast Dolores Mann TEXTILE MACHINERY INSTRUCTOR-C Work Phone: Start: 03-15-2025 Estimated creatinine clearance Dolores Mann TEXTILE MACHINERY INSTRUCTOR-C Work Phone: Start: 12-04-2024 Mri pelvis w/o & w/contrast material Berhane Ferrell APRN.CUTTING TOOL SHARPENER Work Phone: Start: 09-12-2024 Us pelvic nonobstetric real-time image complete Dragan Portillo MD Work Phone: Start: 07-14-2024 UA DIP,URINE HCG (POC) Dragan Portillo MD Work Phone: Start: 05-10-2024 Us breast uni real time with image limited Lisha Castaneda APRN.CUTTING TOOL SHARPENER Work Phone: Start: 05-10-2024 Digital breast tomosynthesis bilateral Lisha Castaneda APRN.CUTTING TOOL SHARPENER Work Phone: Start: 12-20-2023 MRI of lumbar spine TEXTILE MACHINERY INSTRUCTOR-C Prachi Hatch TEXTILE MACHINERY INSTRUCTOR Work Phone: Start: 10-11-2023 STREP A MOLECULAR (POC) Rosina CHAHALC Work Phone: Start: 05-14-2023 CT of head without contrast Start: 11-16-2022 MRI of lumbar spine TEXTILE MACHINERY INSTRUCTOR-C Prachi Hatch TEXTILE MACHINERY INSTRUCTOR Work Phone: Start: 10-27-2022 Mammography [facility] Chauhan Work Phone: Start: 04-09-2022 Radex foot complete minimum 3 views [facility] Chauhan Work Phone: Start: 02-16-2021 Adult depression screening assessment Dragan Portillo MD Work Phone: Start: 03-10-2018 End: 04-09-2021 H/O: section Previous delivery, antepartum Dragan Portillo MD Work Phone: H/O: section Previous c esarean delivery affecting TEXTILE MACHINERY INSTRUCTOR-C Prachi Millerlogjulián TEXTILE MACHINERY INSTRUCTOR Work Phone: Ligation of fallopia n tube DR NESS WRAY MD Plan of Treatment Date Care Activity Detail Author Start: 10-21-2030 Urine microalbumin profile [facility] Start: 05-10-2025 Screening for malign ant neoplasm of breast Mammogram Screening [facility] Start: 04-20-2025 End: 04-20-2025 Patient encounter procedure 04/20/2025 4:00 PM EDT Office Visit OB/Gynecology [address] [place], [place] [id number] Lisha Castaneda APRN.CUTTING TOOL SHARPENER [address] [place] [address] Return in 1 year (on 04/14/2025) for Annual Exam. OB/Gynecology Comment on above: Return in 1 year (on 04/14/2025) for Annual Exam. Start: 04-17-2025 [facility] Start: 03-16-2025 [facility] Start: 03-15-2025 End: 09-15-2025 US Pelvis PELVIC US [facility] Anc Imaging Routine Ovarian cyst, left Expected: 03/15/2025, Expires: 09/15/2025 [facility] Work Phone: Comment on above: Expected: 03/15/2025 , Expires: 09/15/2025 Start: 12-26-2024 HPV TESTING HPV TESTING [facility] Start: 12-26-2024 PAP TESTING PAP TESTING [facility] Start: 12-26-2024 Screening for malign ant neoplasm of cervix [facility] Start: 12-04-2024 End: 12-04-2024 Patient encounter procedure 12/04/2024 10:40 AM EST Appointment Radiology [address] [place] [address] MRI FEMALE PELVIS WO/W IVCON Radiology Comment on above: MRI FEMALE PELVIS WO /W IVCON Start: 10-02-2024 End: 10-02-2024 Patient encounter procedure 10/02/2024 1:10 PM EST Office Visit OB/Gynecology [address] [place] [address] Dragan Portillo MD [address] 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 Start: 07-14-2024 End: 07-14-2024 Patient encounter procedure 07/14/2024 8:30 AM EDT Office Visit OB/Gynecology [address] [place] [address] Dragan Portillo MD [address] [place] [address] IUD insert,Per OB/Gynecology Comment on above: IUD insert,Per Dr.Ru agarwal Start: 05-10-2024 End: 05-10-2024 Patient encounter procedure Mammogram Comment on above: Axillary pain, left [M79.622] Comp- Axillary pain, left [M79.622] Start: 04-14-2024 End: 04-14-2024 Patient encounter procedure 04/14/2024 2:45 PM EDT Office Visit OB/Gynecology [address] [place] [address] Lisha Castaneda APRN.CUTTING TOOL SHARPENER [address] [place] [address] Annual exam OB/Gynecology Comment on above: Annual exam Start: 11-15-2023 Behavioral Health Screening Behavioral Health Screening [facility] Start: 11-15-2023 [facility] Start: 10-28-2023 Patient referral [facility] Work Phone: Start: 10-27-2023 Mammography [facility] Start: 10-27-2023 Screening for malign ant neoplasm of breast Mammogram Screening [facility] Start: 10-11-2023 End: 10-25-2023 COVID & INFLUENZA A/B & RSV NAAT, ROUTINE [facility] Work Phone: Comment on above: Expected: 10/11/2023 , Expires: 10/25/2023 Start: 07-16-2023 Covid-19 Vaccine ( season) Covid-19 Vaccine () [facility] Start: 07-16-2023 Influenza vaccination C [facility] Start: 11-15-2022 DEPRESSION ASSESSMENT DEPRESSION ASS ESSMENT [facility] Start: 2022 Mammography MAMMOGRAM [facility] Start: 07-16-2022 Influenza vaccination INFLUENZA (#1) [facility] Start: 02-16-2022 Adult depression screening assessment DEPRESSION SCREENING [facility] Start: 11-15-2021 DEPRESSION ASSESSMENT DEPRESSION ASS ESSMENT [facility] Start: 08-07-2021 COVID-19 VACCINE (3 - Booster for Moderna series) COVID-19 VACCINE (3 - Booster for Moderna series) [facility] Start: 05-02-2021 COVID-19 VACCINE (3 - Booster for Moderna series) COVID-19 VACCINE (3 - Booster for Moderna series) [facility] Start: 2001 Hepatitis B Vaccine (1 of 3 - 19+ 3-dose series) Hepatitis B Vaccine (1 of 3 - 19+ 3-dose series) [facility] Start: 2000 Anxiety Screening Anxiety Screening [facility] Start: 2000 Depression Screening Depression Scre ening [facility] Start: 1980 HEPATITIS B (1 of 3 - 3-dose series) HEPATITIS B (1 of 3 - 3-dose series) [facility] Start: 1982 Hepatitis B Vaccine (1 of 3 - 3-dose series) Hepatitis B Vaccine (1 of 3 - 3-dose series) [facility] Insertion intrauteri ne device iud INSERT INTRAUTERINE DEVICE Procedures Routine Encounter for IUD insertion Endometriosis Menorrhagia with regular cycle Ordered: 07/11/2024 [facility] Work Phone: Comment on above: Ordered: 07/11/2024 End: 12-30-2024 ERICA SCREENING ERICA SCREENING Radiology Routine Encounter for screening mammogram for breast cancer 1 Occurrences starting 12/01/2023 until 12/30/2024 [facility] Work Phone: Comment on above: 1 Occurrences starti ng 12/01/2023 until 12/30/2024 End: 03-13-2023 ERICA SCREENING W NAM ERICA SCREENING W NAM Radiology Routine Encounter for gynecological examination (general) (routine) without abnormal findings Encounter for screening mammogram for breast cancer 1 Occurrences starting 02/11/2022 until 03/13/2023 [facility] Work Phone: Comment on above: 1 Occurrences starti ng 02/11/2022 until 03/13/2023 End: 05-14-2025 MG Breast - bilateral Diagnostic ERICA DIAGNOSTIC BILATERAL Radiology Routine Axillary pain, left 1 Occurrences starting 04/14/2024 until 05/14/2025 [facility] Work Phone: Comment on above: 1 Occurrences starti ng 04/14/2024 until 05/14/2025 End: 11-27-2025 MR Pelvis WO and W contrast IV MRI FEMALE PELVIS WO/W IVCON Radiology Routine Pelvic and perineal pain Ovarian cyst, right Dysmenorrhea Deep dyspareunia Endometriosis Menorrhagia with regular cycle 1 Occurrences starting 10/27/2024 until 11/27/2025 [facility] Work Phone: Comment on above: 1 Occurrences starti ng 10/27/2024 until 11/27/2025 Patient Education [facility] Work Phone: Patient referral [facility] Work Phone: Removal intrauterine device iud REMOVE INTRAUTERINE DEVICE Procedures Routine Encounter for IUD removal Ordered: 09/15/2024 [facility] Comment on above: Ordered: 09/15/2024 End: 05-14-2025 US Breast - left limited US BREAST LTD LEFT Radiology Routine Axillary pain, left 1 Occurrences starting 04/14/2024 until 05/14/2025 [facility] Comment on above: 1 Occurrences starti ng 04/14/2024 until 05/14/2025 [facility] Immunizations Immunization Date Immunization Notes Care Provider Carolyn smalls 09-15-2022 influenza virus vaccine, unspecified formulation Sahra Carlson APRN.CNP Work Phone: [facility] 09-06-2021 influenza, injectabl e, quadrivalent, contains preservative Dragan Portillo MD Work Phone: [facility] Work Phone: 09-06-2021 influenza virus vaccine, unspecified formulation Dragan Portillo MD Work Phone: [facility] 03-07-2021 COVID-19 vaccine, fu ll dose (MODERNA) Dragan Portillo MD Work Phone: [facility] 02-07-2021 COVID-19 vaccine, fu ll dose (MODERNA) Dragan Portillo MD Work Phone: [facility] Work Phone: 10-21-2020 RHO(D) immune globul in- IV or IM Dragan Portillo MD Work Phone: [facility] Work Phone: 10-21-2020 tetanus toxoid, redu kush diphtheria toxoid, and acellular pertussis vaccine, adsorbed Dragan Portillo MD Work Phone: [facility] Work Phone: 08-15-2020 influenza, injectabl e, quadrivalent, preservative free Dragan Portillo MD Work Phone: [facility] 09-07-2019 influenza, injectabl e, quadrivalent, preservative free Dragan Portillo MD Work Phone: [facility] 09-14-2018 tetanus toxoid, redu kush diphtheria toxoid, and acellular pertussis vaccine, adsorbed Dragan Portillo MD Work Phone: [facility] 08-04-2018 Influenza virus vaccine TEXTILE MACHINERY INSTRUCTOR-C Prachi Hatch TEXTILE MACHINERY INSTRUCTOR Work Phone: [facility] 08-04-2018 influenza, injectabl e, quadrivalent, contains preservative Dragan Portillo MD Work Phone: [facility] 07-28-2018 RHO(D) immune globul in- IV or IM Dragan Portillo MD Work Phone: [facility] Work Phone: 05-02-2018 RHO(D) immune globul in- IV or IM Dragan Portillo MD Work Phone: [facility] 08-18-2017 influenza, injectabl e, quadrivalent, preservative free Draagn Portillo MD Work Phone: [facility] 08-25-2016 influenza, injectabl e, quadrivalent, preservative free Dragan Portillo MD Work Phone: [facility] 05-27-2016 RHO(D) immune globul in- IV or IM Dragan Portillo MD Work Phone: [facility] 03-26-2016 RHO(D) immune globul in- IV or IM Dragan Portillo MD Work Phone: [facility] Work Phone: 03-26-2016 tetanus toxoid, redu kush diphtheria toxoid, and acellular pertussis vaccine, adsorbed Dragan Portillo MD Work Phone: [facility] Work Phone: 11-26-2015 RHO(D) immune globul in- IV or IM Dragan Portillo MD Work Phone: [facility] 09-02-2015 influenza, injectabl e, quadrivalent, preservative free Dragan Portillo MD Work Phone: [facility] 08-24-2014 Seasonal, trivalent, recombinant, injectable influenza vaccine, preservative free Dragan Portillo MD Work Phone: [facility] Payers Date Payer Category Payer Unknown [id number] 2024 Self-pay [id number] 2020 Unknown [employer] PPO [id number] 2020-Present [phone] [address] [place] [address] PPO [id number] 2020 Unknown [employer] PPO [id number] 2020-Present [phone] [address] [place] [address] PPO [id number] 2020 Unknown [id number] 1982 Unknown [id number]. 627 1982 Unknown [id number]. 627 Private Health Insurance [facility] [id number] Unknown [id number] 2.840.1.932249.3.579.2. 462 Unknown [id number] 2.840.1.691423.3.579.2. 462 Unknown [id number] .840.1.772777.3.579.2. 462 Unknown [id number] .840.1.442615.3.579.2. 462 Unknown [id number] .840.1.693384.3.579.2. 462 Unknown [id number] 2.840.1.479667.3.579.2. 462 Unknown [id number] .840.1.964306.3.579.2. 462 Unknown [id number] .840.1.903287.3.579.2. 462 Unknown [id number] .840.1.798527.3.579.2. 462 Unknown [id number] .840.1.528013.3.579.2. 462 Unknown [id number] .840.1.454554.3.579.2. 462 Unknown [id number] .840.1.645627.3.579.2. 462 Unknown [id number] .840.1.454040.3.579.2. 462 Unknown [id number] .840.1.829140.3.579.2. 462 Unknown [id number] 2.840.1.086971.3.579.2. 462 Unknown [id number] 2.840.1.561436.3.579.2. 462 Unknown [id number] .16.840.1.167515.3.579.2. 462 Unknown [id number] 2.16.840.1.929053.3.579.2. 462 Unknown [id number] 2.16.840.1.936818.3.579.2. 462 Unknown [id number] 2.16.840.1.998364.3.579.2. 462 Unknown [id number] 2.16.840.1.856827.3.579.2. 462 Unknown [id number] 2.16.840.1.771452.3.579.2. 462 Social History Date Type Detail Facility Start: 03-10-2018 End: 04-16-2025 Tobacco smoking status NHIS Ex-smoker [facility] Work Phone: Start: 05-15-2002 End: 11-15-2002 History of tobacco use Current smoker [facility] Work Phone: Start: 03-10-2018 End: 07-11-2024 Tobacco use and exposure Smokeless tobacco non-user [facility] Work Phone: Start: 02-11-2022 End: 11-14-2024 Alcohol intake Current drinker of alcohol (finding) [facility] Start: 02-16-2021 History SDOH Alcohol Frequency 4 [facility] Start: 02-16-2021 History SDOH Alcohol Std Drinks 1 [facility] Start: 02-11-2022 History SDOH Alcohol Comment social [facility] Start: 02-16-2021 History SDOH Social Connections Phone 3 [facility] Start: 02-16-2021 History SDOH Social Connections Get Together 2 [facility] Start: 02-16-2021 History SDOH Financial 5 [facility] Start: 11-23-2019 Education 17 [facility] Start: 1980 Sex Assigned At Not on file C [facility] Start: 03-30-2022 End: 09-10-2022 Exposure to SARS-CoV-2 (event) Not sure [facility] Work Phone: Start: 05-15-2002 End: 11-15-2002 History of tobacco use Cigarette Smoker [facility] Work Phone: Start: 12-01-2022 End: 12-27-2023 Tobacco smoking status NHIS Unknown if ever smoked [facility] Start: 12-28-2020 None [facility] Start: 1980 Sex Assigned At Female [facility] Start: 02-16-2021 End: 04-14-2024 History of Social function [facility] Start: 02-16-2021 End: 04-14-2024 Social connection and isolation panel [facility] Do you belong to any clubs or organizations such as caodaism groups, unions, fraternal or athletic groups, or school groups? Yes [facility] Are you now , , , , never or living with a partner? [facility] How often to you hav e a drink containing alcohol? 2-3 time sa week [facility] How many standard dr inks containing alcohol do you have on a typical day? 1 or 2 [facility] How often do you hav e 6 or more drinks on 1 occasion? Never [facility] How hard is it for y ou to pay for the very basics like food, housing, medical care, and heating Not hard at all [facility] Do you feel stress - tense, restless, nervous, or anxious, or unable to sleep at night because your mind is troubled all the time - these days [OSQ] To some extent [facility] (I/We) worried wheth er (my/our) food would run out before (I/we) got money to buy more. Never true [facility] In the past 12 month s, was there a time when you were not able to pay the mortgage or rent on time? No [facility] Start: 01-03-2024 Tobacco smoking status Never s moked tobacco (finding) [facility] [place] Sex Assigned At Sex [facility] NEGATED: Highlighted row [facility] Medical Equipment Procedure Code Equipment Code Equipment Origin al Text Equipment Identifier Dates Fusion, spine, lumbar, 360 degree, starting in supine position transitioning to prone BONE,30CC CRUSH CANC FDA Start: 07-18-2024 Fusion, spine, lumbar, 360 degree, starting in supine position transitioning to prone SET SCREW FDA Start: 07-18-2024 Fusion, spine, lumbar, 360 degree, starting in supine position transitioning to prone SET SCREW FDA Start: 07-18-2024 Fusion, spine, lumbar, 360 degree, starting in supine position transitioning to prone SET SCREW FDA Start: 07-18-2024 Fusion, spine, lumbar, 360 degree, starting in supine position transitioning to prone Gelatin haemostatic agent [id number] 02 FDA Start: 07-18-2024 Fusion, spine, lumbar, 360 degree, starting in supine position transitioning to prone CAGE FDA Start: 07-18-2024 Fusion, spine, lumbar, 360 degree, starting in supine position transitioning to prone PUTTY, 5CC STD DBX FDA Start: 07-18-2024 Fusion, spine, lumbar, 360 degree, starting in supine position transitioning to prone PUTTY, 5CC STD DBX FDA Start: 07-18-2024 Fusion, spine, lumbar, 360 degree, starting in supine position transitioning to prone JERILYN FDA Start: 07-18-2024 Fusion, spine, lumbar, 360 degree, starting in supine position transitioning to prone JERILYN FDA Start: 07-18-2024 Fusion, spine, lumbar, 360 degree, starting in supine position transitioning to prone SCREW FDA Start: 07-18-2024 Fusion, spine, lumbar, 360 degree, starting in supine position transitioning to prone SCREW FDA Start: 07-18-2024 Fusion, spine, lumbar, 360 degree, starting in supine position transitioning to prone SET SCREW FDA Start: 07-18-2024 Fusion, spine, lumbar, 360 degree, starting in supine position transitioning to prone BONE,30CC CRUSH CANC FDA Start: 07-18-2024 Fusion, spine, lumbar, 360 degree, starting in supine position transitioning to prone SET SCREW FDA Start: 07-18-2024 Fusion, spine, lumbar, 360 degree, starting in supine position transitioning to prone SET SCREW FDA Start: 07-18-2024 Fusion, spine, lumbar, 360 degree, starting in supine position transitioning to prone SET SCREW FDA Start: 07-18-2024 Fusion, spine, lumbar, 360 degree, starting in supine position transitioning to prone CAGE FDA Start: 07-18-2024 Fusion, spine, lumbar, 360 degree, starting in supine position transitioning to prone PUTTY, 5CC STD DBX FDA Start: 07-18-2024 Fusion, spine, lumbar, 360 degree, starting in supine position transitioning to prone PUTTY, 5CC STD DBX FDA Start: 07-18-2024 Fusion, spine, lumbar, 360 degree, starting in supine position transitioning to prone JERILYN FDA Start: 07-18-2024 Fusion, spine, lumbar, 360 degree, starting in supine position transitioning to prone JERILYN FDA Start: 07-18-2024 Fusion, spine, lumbar, 360 degree, starting in supine position transitioning to prone SCREW FDA Start: 07-18-2024 Fusion, spine, lumbar, 360 degree, starting in supine position transitioning to prone SCREW FDA Start: 07-18-2024 Fusion, spine, lumbar, 360 degree, starting in supine position transitioning to prone SET SCREW FDA Start: 07-18-2024 Goals Date Patient Goal Desired Activity /State Functional Status Date Assessment Result Facility 05-22-2024 Functional Status Repositions self [facility] 05-22-2024 Functional Status Maintained [facility] Mental Status Date Assessment Result Facility 05-22-2024 Mental Status Orientation Asse ssment Oriented x 4 [facility] Clinical Notes 12-23-2020 to 04-17-2025 Note Date & Type Note Facility 04-17-2025 History and physi judah note [facility] 04-17-2025 Discharge summary [facility] 04-17-2025 Note [facility] Medical Records Department [address] [place] [address] History Physical Exam 04/17/25 0130 MR#: [id number] Acct: [id number] Name: VI VELA Rep #: [id number] : 1980 44 From: Rajinder Gold MD PCP: ALDO Scruggs Status:REG ER Location: ED HPI - General General Date of Service: 04/17/25 Chief Complaint: Acute onset upper abdominal pain HPI Narrative VI VELA, is a 44 F who presents to [facility] with complaints of abdominal pain and associated nausea that began 2 days ago. Patient states that she had dinner approximately 1800 on 04/15/2025 thereafter began with upper abdominal pain and nausea just 30 minutes following. She describes this pain as a searing and burning character. She was able to find sleep and upon awakening in the morning experienced further nausea. However, she also adds that she became really hungry and had an uncrustable and a bagel for breakfast. Thereafter the nausea persisted and she first reached out to outpatient GI office for guidance but then elected to come to the emergency department. Upon arrival patient underwent laboratory testing and ultrasound imaging. She states that she now feels better than upon presentation Patient's laboratories are completely within normal limits???including no evidence of leukocytosis or left shift. Ultrasound imaging is read by radiology as equivocal for acute cholecystitis given presence of positive sonographic Ennis sign as reported by technologist. Because of potentially positive Ennis sign for emergency medicine physician I have been asked to evaluate. Patient relays a history of prior presentation to the emergency department on 03/15/2025 where she sought further evaluation of, again, searing and burning pain that she relates was of greater intensity than even her most recent episode. She shares she underwent CT imaging and then was given a follow-up with gastroenterology as an outpatient. This latter visit resulted in a ultrasound which was completed last week. Patient states that she learned of the results of that study after calling in yesterday with complaints of symptoms. She has that she was to be given referral to surgery upon receiving those results. Patient's past surgical history includes laparoscopic exploration for endometriosis with resultant tubal excision on the right as well as appendectomy. Patient states that then just a year ago she underwent second laparoscopy for uterine perforation from an IUD and this included removal of her left fallopian tube. [facility] Medical History COVID Wears hearing aid Loss of hearing Depression Restless legs History of chemical tubal occlusion Wears glasses Wears contact lenses Anxiety Alcohol use Back pain Injury of back Former smoker History of herniated intervertebral disc Stomach ulcer Home Medications ???Medication ???Instructions ???Recorded ???Last Taken ???Type cholecalciferol (vitamin D3) 25 25 mcg PO DAILY 04/24/21 07/17/24 History mcg (1,000 unit) chewable tablet (Vitamin D3) citalopram 40 mg tablet 40 mg PO DAILY 04/24/21 07/17/24 H istory bupropion HCl 150 mg 24 hr tablet, 150 mg PO QDAY 05/05/24 07/17/24 History extended release acetaminophen 500 mg tablet 500 mg PO Q6H #30 tabs 07/19/24 Un known Rx drospirenone (contraceptive) 4 mg 1 tab PO QDAY 10/10/24 Unknown Hi story (28) tablet (Slynd) ondansetron 4 mg disintegrating 4 mg PO Q8H PRN PRN Nausea #10 tab s 04/17/25 Unknown Rx tablet Allergy/AdvReac Type Severity Reaction Status Date / Time morphine AdvReac Itching Verified 04/16/25 18:12 Family History Other Alcoholism CVA (cerebral vascular accident) Heart disease Osteoporosis Thyroid disorder Surgical History History of hysteroscopy History of tonsillectomy and adenoidectomy Hx of laparoscopy History of foot surgery History of delivery Social History Smoking Status: Former smoker alcohol intake: current alcohol intake frequency: holidays/special occasions only substance use type: does not use what type of physical activity do you participate in: yoga frequency: 3-4 times per week Vital Signs Vital Signs Vital Signs: 04/16/25 18:10 04/16/25 21:50 04/16/25 22:21 Temperature 98.1 F 98.1 F 98 F Temperature Source Oral Temporal Temporal Pulse Rate 80 78 80 Respiratory Rate 19 H 16 16 Blood Pressure 137/78 H 127/84 H 124/80 H Blood Pressure Mean 97 98 94 Pulse Ox 98 98 99 Oxygen Delivery Method Room Air Room Air 04/17 (more content not included)... [facility] 04-16-2025 Radiology Diagnostic study note [facility] Imaging Services [address] [place] [address] Gallbladder MR#: [id number] Acct: [id number] Name: VI VELA Rep #: [id number] : 1980 F 44 From: Tish Veras MD PCP: ALDO Scruggs Status: REG ER Study:Gallbladder Date of Exam: 04/16/25 Exam# [id number] Ordering Dr: Vick Bean DO PROCEDURE: GALLBLADDER 04/16/2025 REASON FOR EXAM: RUQ US COMPARISON: Abdominal ultrasound 04/12/2025 FINDINGS: Liver: Normal length of 14.2 cm. Echogenicity is mildly increased relative to the right kidney. Hepatopetal portal venous flow. Gallbladder: Echogenic shadowing gallstone at the neck. Gallbladder measures 5.8 cm in length. Normal wall thickness of 0.2 cm. No pericholecystic fluid. Sonographic Ennis's sign is positive per technologist report. Common bile duct: Normal measuring 6 mm. Pancreas: Visualized portions are unremarkable. The distal body and tail are obscured by bowel gas. Other: Visualized portions of the right kidney are unremarkable. No right upperquadrant ascites. US/Gallbladder IMPRESSION: 1. Cholelithiasis with positive sonographic Ennis's sign, equivocal for acute cholecystitis in the setting of normal wall thickness and no pericholecystic fluid. Consider Surgical consultation if clinical concern persists. 2. Findings suggestive of mild hepatic steatosis. Reading Location: [id number] CC: ALDO Mann; Dr. Kaiser Bean DO ~ Operations Engineer: Signed [facility] 04-16-2025 Discharge summary Note Date/Time April 17, 2025 1:36a [facility] System Medical Records Department [address] [place] [id number] Emergency Department Summary 04/16/25 MR#: [id number] Acct: [id number] Name: VI VELA Rep #:[id number] : 1980 44 From: Kaiser Luong PCP: ALDO Scruggs Status:REG ER Location: ED HPI History of Present Illness Chief Complaint: Abd Pain PFSH PFS Medical History COVID Wears hearing aid Loss of hearing Depression Restless legs History of chemical tubal occlusion Wears glasses Wears contact lenses Anxiety Alcohol use Back pain Injury of back Former smoker History of herniated intervertebral disc Stomach ulcer Home Medications ?Medication ?Instructions ?Recorded ?Last Taken ?Type cholecalciferol (vitamin D3) 25 25 mcg PO DAILY 07/17/24 History mcg (1,000 unit) chewable tablet (Vitamin D3) citalopram 40 mg tablet 40 mg PO DAILY 04/24/2101/08 History bupropion HCl 150 mg 24 hr tablet, 150 mg PO QDAY 04/1607/17/24 History extended release acetaminophen 500 mg tablet 500 mg PO Q6H #30 tabs 03/08 Unknown Rx drospirenone (contraceptive) 4 mg 1 tab PO QDAY Unknown History (28) tablet (Slynd) Allergy/AdvReac Type Severity Reaction Status Date / Time morphine AdvReac Itching Verified 04/16/25 18:12 Family History Other Alcoholism CVA (cerebral vascular accident) Heart disease Osteoporosis Thyroid disorder Surgical History History of hysteroscopy History of tonsillectomy and adenoidectomy Hx of laparoscopy History of foot surgery History of delivery Social History Smoking Status: Former smoker alcohol intake: current alcohol intake frequency: holidays/special occasions only substance use type: does not use what type of physical activity do you participate in: yoga frequency: 3-4 times per week EXAM Physical Exam Const Vital Signs: 04/16/25 18:10 04/16/25 21:50 04/16/25 22:21 Temperature 98.1 F 98.1 F 98 F Temperature Source Oral Temporal Temporal Pulse Rate 80 78 80 Respiratory Rate 19 H 16 16 Blood Pressure 137/78 H 127/84 H 124/80 H Blood Pressure Mean 97 98 94 Pulse Ox 98 98 99 Oxygen Delivery Method Room Air Room Air 04/17/25 00:21 Temperature 98.1 F Temperature Source Temporal Pulse Rate 74 Respiratory Rate 16 Blood Pressure 123/77 H Blood Pressure Mean 92 Pulse Ox 98 Oxygen Delivery Method MDM MDM MDM Narrative Medical decision making narrative: HISTORY OF PRESENT ILLNESS: Chief complaint: Abdominal pain, nausea vomit 42-year-old female history of gallstones presents with abdominal pain nausea vomiting. She notes this began late last night. Improved somewhat but still nauseous. Notes history of laparoscopy and hysteroscopy. Denies blood in her vomit. Denies trouble urinating. Denies constipation. REVIEW OF SYSTEMS: Pertinent positives: Abdominal pain, nausea vomiting Pertinent negatives: As per HPI PHYSICAL EXAM: Nursing triage notes reviewed, Vital signs reviewed Constitutional: please see [facility] HENT: MMM Eyes: Pupils equal round and reactive to light, Extraocular muscles intact Neck: No stridor, no JVD, full neck ROM Lungs: Clear to auscultation, No wheezing or rales. No increased work of breathing, no conversational dyspnea, no accessory muscle use, no nasal flaring. No respiratory distress noted Heart: Regular rate and rhythm, No murmurs, No rubs and No gallops, 2+ distal pulses (radial, femoral, posterior tibial) in all extremities Abdomen: Positive Ennis sign, right upper quadrant TTP : No CVAT Extremities: No edema Neuro: No new focal neurological deficits, cranial nerves II through XII intact,5/5 strength in all present extremities. Intact sensation to light touch in all present extremities, 2+ reflexes bilateral patella tendons. Skin: No rash or lesions noted MEDICAL DECISION MAKING: Chief Complaint: please see HPI External records reviewed: Reviewed prior imaging studies: Reviewed right required ultrasound from April 12, 2025 (4 days ago) showed 1 cm gallstone of the neck of the gallbladder, no gallbladder wall thickening, pericholecystic fluid, negative Ennis sign. Read was cholelithiasis without acute cholecystitis Factors affecting care: gallstone Social determinants of health: Denies alcohol History obtained from others: none Consults: General Surgery (Dr. Gold) -recommended against acute surgical invention. [facility] Narrative: The patient was initially hemodynamically stable, afebrile and nontoxic-appearing. Exam positive Ennis sign. No peritoneal signs. I considered the following differential diagnosis: AAA, small bowel obstruction, abdominal perforation, appendicitis, pancreatitis, hepatobiliary pathology (acute cholecystitis), mesenteric ischemia, pathology (ie nephrolithiasis, pyelonephritis). Triage labs replace per protocol secondary to poor department of dynamics including high volume and high acuity. Triage labs were placed including CBC, CMP, urinalysis, lipase, urine test ALL IMAGES (IF OBTAINED) HAVE BEEN PERSONALLY REVIEWED AND INTERPRETED BY MYSELF. CBC without leukocytosis, severe anemia, no thrombocytopenia. CMP without evidence of acute kidney injury, significant electrolyte abnormality, anion gap to suggest end organ hypo-perfusion, no evidence of metabolic acidosis with a normal bicarbonate, no evidence of hepatobiliary obstructive pathology. Urinalysis shows no evidence of urinary inflammation suggestive of UTI Urine is negative Lipase is wnl indicating no pancreatic inflammation. Right upper quadrant ultrasound shows gallstones Patient was evaluated by general surgery. General surgery recommended discharge. Recommended against acute surgical intervention. The patient and/or family, caregivers express understanding. The patient and/orfamily, caregivers agrees with the plan. Shared decision making: I will have a discussion with the patient and or visitors regarding risk/benefits of further testing or admission. They will be made aware of of the risk/benefits inherent in this decision they will be given the opportunity to voice understanding. Total critical care time today provided was at least 0 minutes. This excludes separately billable procedures. Critical care time (if documented) is secondary to the patient having high probability of clinically significant/life threatening deterioration in the patient's condition which required my urgent intervention. Impression: 1. Acute abdominal pain 2. Biliary colic Dispo: Discharge home This note was generated with [employer] dictation software. It may contain incorrectwords, spelling, and punctuation that were not noted in review of the chart prior to signing. Lab Data Labs: Laboratory Results - last 24 hr 04/16/25 04/16/25 18:51 21:46 WBC 7.9 RBC 4.46 Hgb 12.9 Hct 39.8 MCV 89.2 MCH 28.9 MCHC 32.4 RDW Std Deviation 39.9 RDW Coeff of Magui 12.3 Plt Count 267 MPV 10.7 Immature Gran % (Auto) 0.300 Neut % (Auto) 58.4 Lymph % (Auto) 30.6 [place] % (Auto) 8.3 Eos % (Auto) 1.8 Baso % (Auto) 0.6 Absolute Neuts (auto) 4.6 Absolute Lymphs (auto) 2.42 Nucleated RBC % 0 Sodium 139 Potassium 4.1 Chloride 105 Carbon Dioxide 22.8 Anion Gap 12 BUN 13 Creatinine 0.93 Estim Creat Clear Calc 75.00 Est GFR (MDRD) Non-Af 78 BUN/Creatinine Ratio 14.0 Glucose 92 Calcium 9.4 Total Bilirubin 0.31 AST 23 ALT 12 Alkaline Phosphatase 97 Total Protein 7.9 Albumin 4.7 Globulin 3.2 Albumin/Globulin Ratio 1.5 Lipase 39 Serum , Qual NEGATIVE Urine Color Yellow Urine Clarity Clear Urine pH 6.0 Ur Specific [place] 1.020 Urine Protein 30 H Urine Glucose (UA) Normal Urine Ketones 50 H Urine Occult Blood 25 H Urine Nitrite Negative Urine Bilirubin Negative Urine Urobilinogen Normal Ur Leukocyte Esterase 25 H Urine RBC 0-5 SEEN Urine WBC 0-5 SEEN Ur Squamous Epith Cells 0-5 SEEN Urine Bacteria 0 SEEN Urine Mucus 0 SEEN Radiography Diagnostic Testing: Clinical Impression(s) from Imaging Studies Gallbladder Ultrasound 04/16/25 23:00 IMPRESSION: 1. Cholelithiasis with positive sonographic Ennis's sign, equivocal for acute cholecystitis in the setting of normal wall thickness and no pericholecystic fluid. Consider Surgical consultation if clinical concern persists. 2. Findings suggestive of mild hepatic steatosis. Reading Location: [facility] Discharge Plan Triage Chief Complaint: Abd Pain ED Provider: Kaiser Bean Dx/Rx/DC Orders Prescriptions: No Action bupropion HCl 150 mg tablet extended release 24 hr 150 mg PO QDAY Slynd 4 mg (28) tablet 1 tab PO QDAY citalopram 40 mg tablet 40 mg PO DAILY Patient Comments: take 1 tablet by mouth once daily cholecalciferol (vitamin D3) [Vitamin D3] 25 mcg (1,000 unit) Tablet,Chewable 25 mcg PO DAILY acetaminophen 500 mg Tablet 500 mg PO Q6H Qty: 30 0RF Primary Care Provider: Dolores Mann NP Referrals: Dolores Mann NP, TEXTILE MACHINERY INSTRUCTOR-C [Primary Care Provider] - Print Language: Citizen Of [place] What to do if you have Problems For any increased pain, shortness of breath, bleeding, nausea or vomiting, chestpain, or any unexpected problems, contact your Primary Care Provider. Call [facility] ([phone]) or report to the closest Emergency Room. Call 911 if necessary. 04/17/25 0136 <Electronically signed by Kaiser Bean DO> Cosigner Signature (if applicable): CC: TEXTILE MACHINERY INSTRUCTOR-C Dolores Mann ~ Signed [facility] Work Phone: 1(120) 283-715605-23-2025 Evaluation note* Diagnosis Onset Date Resolution Status Admit Date Abdominal pain acute April 06, 2025 1:23pm Diarrhea acute April 06, 2025 1:23pm Overflow diarrhea acute March 1:23pm [facility] Work Phone: 1(100) 850-951701-20-2025 History of Present illness Narrative* Sheila Lam MRI Tech - 12/04/2024 10:40 AM EST Radiology Service Progress Note PATIENT NAME: Vi Vela DATE OF SERVICE: December 04, 2024 TIME: 10:49 AM PATIENT IDENTITY VERIFICATION COMPLETED USING TWO (2) IDENTIFIERS: Name and Date of confirmedby patient verbally. FALL SCREENING: Has the patient had 2 falls in the last year or 1 fall with injury or currently using an Ambulatory Assistive Device (Walker, Cane, Wheelchair, Crutches, etc.)? No PATIENT GENDER DATA: Assigned female at . status: : No status:NO. PATIENT RELEVANT IMPLANT DATA REVIEWED: Yes PATIENT PRESENTS WITH AN IMPLANTABLE OR ATTACHED WASHERETTE MACHINE OPERATOR: No RADIOLOGY DEPARTMENT: MR; Exam(s) Completed: Body: Female Pelvis PERIPHERAL IV DATA: Site assessment: Clean,Dry and Intact, Site disposition Discontinued SIGNED BY: JOVAN Brito Tech December 04, 2024 10:49 AM * Mattie Alberto RN - 12/04/2024 10:40 AM EST Radiology Service Progress Note DATE OF SERVICE: December 04, 2024 TIME: 10:57 AM PATIENT WEIGHT: 159LBS PATIENT IDENTITY VERIFICATION COMPLETED USING TWO (2) STANDARD IDENTIFIERS: Name and Date of confirmed by patient verbally. FALL SCREENING: Has the patient had 2 falls in the last year or 1 fall with injury or currently using an Ambulatory Assistive Device (Walker, Cane, Wheelchair, Crutches, etc.)? No PATIENT GENDER DATA: Assigned female at . status: : No status:NO. ALLERGIES: Reviewed and unchanged CONTRAST ALLERGY: No EXAM: MRI - CONTRAST TYPE: GROUP II IV SITE: Ambulatory: A peripheral IV was started in the Left antecubital site with a Angio cath: 22gauge. IV SITE APPEARANCE: Clean,Dry and Intact SIGNATURE: Mattie Alberto RN PATIENT NAME: Vi Vela DATE: December 04, 2024 TIME: 10:57 AM [facility] NoteHNO ID: [id number] Author: SHEILA LAM, JOVAN Levy Service: ? Author Type: Pipe Installer Type: Progress Notes Filed: 12/04/2024 10:50 Note Text: Radiology Service Progress Note PATIENT NAME: Vi Vela DATE OF SERVICE: December 04, 2024 TIME: 10:49 AM PATIENT IDENTITY VERIFICATION COMPLETED USING TWO (2) IDENTIFIERS: Name and Date of confirmed by patient verbally. FALL SCREENING: Has the patient had 2 falls in the last year or 1 fall with injury or currently using an Ambulatory Assistive Device (Walker, Cane, Wheelchair, Crutches, etc.)? No PATIENT GENDER DATA: Assigned female at . status: : No status: NO. PATIENT RELEVANT IMPLANT DATA REVIEWED: Yes PATIENT PRESENTS WITH AN IMPLANTABLE OR ATTACHED WASHERETTE MACHINE OPERATOR: No RADIOLOGY DEPARTMENT: MR; Exam(s) Completed: Body: Female Pelvis PERIPHERAL IV DATA: Site assessment: Clean,Dry and Intact, Site disposition Discontinued SIGNED BY: Sheila LAM RT, mica plate layer hand December 04, 2024 10:49 [facility]01-20-2025 NoteHNO ID: [id number] Author: MATTIE ALBERTO RN Service: Nursing Author Type: Registered Nurse Type: Progress Notes Filed: 12/04/2024 10:58 Note Text: Radiology Service Progress Note DATE OF SERVICE: December 04, 2024 TIME: 10:57 AM PATIENT WEIGHT: 159LBS PATIENT IDENTITY VERIFICATION COMPLETED USING TWO (2) STANDARD IDENTIFIERS: Name and Date of confirmed by patient verbally. FALL SCREENING: Has the patient had 2 falls in the last year or 1 fall with injury or currently using an Ambulatory Assistive Device (Walker, Cane, Wheelchair, Crutches, etc.)? No PATIENT GENDER DATA: Assigned female at . status: : No status: NO. ALLERGIES: Reviewed and unchanged CONTRAST ALLERGY: No EXAM: MRI - CONTRAST TYPE: GROUP II IV SITE: Ambulatory: A peripheral IV was started in the Left antecubital site with a Angio cath: 22 gauge. IV SITE APPEARANCE: Clean,Dry and Intact SIGNATURE: Mattie Alberto RN PATIENT NAME: Vi Vela DATE: December 04, 2024 TIME: 10:57 [facility]12-13-2024 NoteHNO ID: [id number] Author: BERHANE FERRELL APRN.TIM Service: ? Author Type: Nurse Practitioner Type: Progress Notes Filed: 11/14/2024 10:40 Note Text: Women's Health Two Dot SECTION FOR MINIMALLY INVASIVE GYNECOLOGIC SURGERY [facility] PATIENT NAME: Vi Vela DATE: 10/27/2024 Patient Name and verified: Yes Patient Location: [place] This Virtual Visit was completed using My Chart Zoom platform. I have communicated my name and active licensure. The patient's identity and physical location were verified at the time of this visit. Either the patient or their legal players club representative has been informed of the risks and benefits of -- and alternatives to -- treatment through a remote evaluation and consents to proceed with the evaluation remotely. Consultation requested by Dr. Dragan Portillo MD for an opinion regarding endometriosis. My final recommendations will be communicated back to the requesting physician by way of shared medical record or letter via US mail Chief Complaint CC/REASON FOR VIRTUAL VISIT: Endometriosis History of Present Illness: Vi is a 44 year old who presents for a Distance Health visit to discuss ENDOMETRIOSIS Patient goals: She describes her symptoms as heavy periods, pain Symptoms have been present for intermittently since 2013. More consistently for the past 4-5 years She describes her menses as heavy. Bleeding through super plus tampon in [place]. Has to use pad as well She is taking or tried the following for menses suppression: IUD after youngest was born. IUD perforated. Nuva ring Another IUD was placed after Nuvaring. Took out it out recently due to pain. Heavy bleeding after this was removed Just started on Slynd recently Has tried continuous OCPs in the past She reports the following bowel complaints: None since first surgery. Endo was on bowels. She reports the following bladder complaints: None. She has Not missed work/school due to pain. She has not visited the Emergency Room for the pain. She does not desire future child bearing. She has not been a victim of emotional, physical, or sexual abuse. - Dysmenorrhea? Yes - Dyspareunia? Yes, since coming off OCPs in 2012 - Dyschezia? No - Dysuria? No - Infertility? Yes Aggravating factors: Periods, [place]. Alleviating factors: Alternating tylenol and motrin. She has had the following work up thus far: - Ultrasound She has tried the following interventions so far: Nonsurgical attempts to ameliorate her pain have included: - Hormonal suppression Attempted surgical treatment has been as follows: Surgery [address] Joseph to remove endometroisis. Pain did improve significantly with this Sugery to removed perf. IUD and fallopian tube IVF x2 IMAGING: Ultrasound (09/12/24): Indication Pelvic pain, Abnormal uterine bleeding Impression 3D rendering of the uterus demonstrates a malpositioned IUD with the device left arm is slightly in myometrium 4.9 mm. Caudal end of the IUD is on the right at the 45 degree angle of cx/uterus The contour of the uterus and the endometrial cavity were evaluated with 3-D imaging. 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 The uterus is anteverted and measures 74 mm x 39 mm x 47 mm. The endometrial thickness is 2 mm. The right ovary measures 16 mm x 12 mm x 8 mm. The left ovary measures 23 mm x 16 mm x 16 mm and contains a 23 mm x 16 mm x 16 mm bilocular cyst (single avascular septation) with smooth borders. This cyst also contains a daughter cyst. O-RADS 2 There is no free fluid visualized. Technique: Three dimensional imaging was created on a dedicated stand-alone 3D workstation with images created and archived, and supervised and reviewed by the interpreting physician utilizing images from a US Scan performed on . Recommendations O-RADS 2 ovarian lesion, non-simple cyst, almost certainly benign. Follow up ultrasound is recommended in 6 months. Recommend removal of the IUD. History General History Other: Embryo transfer date 01/31/2018, 5 days betw. fertilization/ embryo transfer, EDC by IVF 10/19/2018 Previous Outcomes Other: Mode of last delivery: vaginal delivery Menstrual History Contraception: Intrauterine contraceptive device. No regular periods with IUD but does have daily spotting Method Transabdominal, transvaginal, 3D ultrasound examination, Color Doppler examination. View: Adequate visualization Uterus Uterus: Visualized Uterus position: anteverted Description of uterine malformations: arcuate Myometrium: normal Endometrium: normal Cervix details: normal Uterus length 74 mm Uterus width 47 mm Uterus height 39 mm Uterus Vol 71.1 cm? Endometrial thickness, total 2.0 mm Fibroids: No fibroids identified Polyps: No polyps identified IUCD Position control IUCD type: Mirena intrauterine system (more content not included)...[facility]12-13-2024 History of Present illness Narrative* Berhane Ferrell APRN.CUTTING TOOL SHARPENER - 10/27/2024 1:15 PM EST Images from the original note were not included. Women's Health Two Dot SECTION FOR MINIMALLY INVASIVE GYNECOLOGIC SURGERY [facility] PATIENT NAME: Vi Vela DATE: 10/27/2024 Patient Name and verified: Yes Patient Location: [place] This Virtual Visit was completed using My Chart Zoom platform. I have communicated my name and active licensure. The patient's identity and physical location wereverified at the time of this visit. Either the patient or their legal players club representative has been informed of the risks and benefits of -- and alternatives to -- treatment through a remote evaluation andconsents to proceed with the evaluation remotely. Consultation requested by Dr. Dragan Portillo MD for an opinion regarding endometriosis. My final recommendations will be communicated back to the requesting physician by way of shared medical record or letter via US mail Chief Complaint CC/REASON FOR VIRTUAL VISIT: Endometriosis History of Present Illness: Vi is a 44 year old who presents for a Distance Health visit to discuss ENDOMETRIOSIS Patient goals: She describes her symptoms as heavy periods, pain Symptoms have been present for intermittently since 2013. More consistently for the past 4-5 years She describes her menses as heavy. Bleeding through super plus tampon in [place]. Has to use pad as well She is taking or tried the following for menses suppression: IUD after youngest was born. IUD perforated. Nuva ring Another IUD was placed after Nuvaring. Took out it out recently due to pain. Heavy bleeding after this was removed Just started on Slynd recently Has tried continuous OCPs in the past She reports the following bowel complaints: None since first surgery. Endo was on bowels. She reports the following bladder complaints: None. She has Not missed work/school due to pain. She has not visited the Emergency Room for the pain. She does not desire future child bearing. She has not been a victim of emotional, physical, or sexual abuse. - Dysmenorrhea? Yes - Dyspareunia? Yes, since coming off OCPs in 2012 - Dyschezia? No - Dysuria? No - Infertility? Yes Aggravating factors: Periods, [place]. Alleviating factors: Alternating tylenol and motrin. She has had the following work up thus far: - Ultrasound She has tried the following interventions so far: Nonsurgical attempts to ameliorate her pain have included: - Hormonal suppression Attempted surgical treatment has been as follows: Surgery [address] Joseph to remove endometroisis. Pain did improve significantly with this Sugery to removed perf. IUD and fallopian tube IVF x2 IMAGING: Ultrasound (09/12/24): Indication Pelvic pain, Abnormal uterine bleeding Impression 3D rendering of the uterus demonstrates a malpositioned IUD with the device left arm is slightly in myometrium 4.9 mm. Caudal end of the IUD is on the right at the 45 degree angle of cx/uterus The contour of the uterus and the endometrial cavity were evaluated with 3-D imaging. 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 The uterus is anteverted and measures 74 mm x 39 mm x 47 mm. The endometrial thickness is 2 mm. The right ovary measures 16 mm x 12 mm x 8 mm. The left ovary measures 23 mm x 16 mm x 16 mm and contains a 23 mm x 16 mm x 16 mm bilocular cyst (single avascular septation) with smooth borders. This cyst also contains a daughter cyst. O-RADS 2 There is no free fluid visualized. Technique: Three dimensional imaging was created on a dedicated stand-alone 3D workstation with images created and archived, and supervised and reviewed by the interpreting physician utilizing images from a US Scan performed on . Recommendations O-RADS 2 ovarian lesion, non-simple cyst, almost certainly benign. Follow up ultrasound is recommended in 6 months. Recommend removal of the IUD. History General History Other: Embryo transfer date 01/31/2018, 5 days betw. fertilization/ embryo transfer, EDC by IVF 10/19/2018 Previous Outcomes Other: Mode of last delivery: vaginal delivery Menstrual History Contraception: Intrauterine contraceptive device. No regular periods with IUD but does have daily spotting Method Transabdominal, transvaginal, 3D ultrasound examination, Color Doppler examination. View: Adequate visualization Uterus Uterus: Visualized Uterus position: anteverted Description of uterine malformations: arcuate Myometrium: normal Endometrium: normal Cervix details: normal Uterus length 74 mm Uterus width 47 mm Uterus height 39 mm Uterus Vol 71.1 cm Endometrial thickness, total 2.0 mm Fibroids: No fibroids identified Polyps: No polyps identified IUCD Position control IUCD type: Mirena intrauterine system. Location: seen within the myometrium, Left arm is slightly in myometrium 4.9 mm Right Ovary Rt ovary: Visualized Rt ovary morphology: premenopausal normal follicular Rt ovary D1 16 mm Rt ovary D2 12 mm Rt ovary D3 8 mm Rt ovary Vol 0.8 cm Rt ovarian cyst(s): No cysts identified Left Ovary Lt ovary: Visualized Lt ovary D1 23 mm Lt ovary D2 16 mm Lt ovary D3 16 mm Lt ovary Vol 2.8 cm Lt ovarian cyst(s): Cysts identified Lt ovarian cyst D1 23 mm Lt ovarian cyst D2 16 mm Lt ovarian cyst D3 16 mm Lt ovarian cyst mean 18.3 mm Lt ovarian cyst vol 3.083 cm Lt ovarian cyst findings: Bilocular cyst (single avascular septation) with smooth borders Cul de Sac Visualized. no free fluid visualized Procedure To characterize the IUD and arcuate uterus, three dimensional imaging was created on a dedicated stand-alone 3D workstation with images created and archived, and supervised and reviewed by the interpreting physician utilizing images from an ultrasound scan performed today. Performed By: Ana M Betancourt RDMS Read By: Jackie Polanco M.D. CBC CBC Order: [id number] Component Ref Range & Units 1 yr ago Auto WBC 3.8 - 10.8 Thousand/uL 6.0 RBC 3.80 - 5.10 Million/uL 4.52 Hemoglobin 11.7 - 15.5 g/dL 13.1 Hematocrit 35.0 - 45.0 % 40.7 MCV 80.0 - 100.0 fL 90.0 MCH 27.0 - 33.0 pg 29.0 MCHC 32.0 - 36.0 g/dL 32.2 RDW 11.0 - 15.0 % 12.8 Platelets 140 - 400 Thousand/uL 252 MPV 7.5 - 12.5 fL 11.1 Neutrophils Absolute 1500 - 7800 cells/uL 3,630 Lymphocytes Absolute 850 - 3900 cells/uL 1,752 Monocytes Absolute 200 - 950 cells/uL 468 Eosinophils Absolute 15 - 500 cells/uL 108 Basophils Absolute 0 - 200 cells/uL 42 Neutrophils Relative % 60.5 Lymphocytes Relative % 29.2 Monocytes Relative % 7.8 Eosinophils Relative % 1.8 Basophils Relative % 0.7 Hemoglobin (g/dL) Date Value 10/21/2020 11.7 Hematocrit (%) Date Value 10/21/2020 34.8 WBC (k/uL) Date Value 10/21/2020 8.49 Past Gynecologic History: Menarche: LMP: Patient's last menstrual period was 06/08/2024 (exact date). History of STI: No History of PID: No Past Obstetrical History: Vaginal delivery: 2 Section: 1 Ectopic: 0 Miscarriage: 0 Menses: . Contraception: Progestin - only contraceptives PAP HISTORY: HPV vaccine: No Immunocompromised? 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 History Comments: Sexual Activity: Yes; Male; bilateral salpingectomy Contraception: Tubal Ligation Review of Systems: See HPI Past Medical History: PAST MEDICAL HISTORY Diagnosis Date Abnormal Pap smear of cervix 12 years ago- 1 neg Anemia anxiety Breast disorder breast biopsy 06/2015- benign Dyspepsia 2012 Endometriosis removed right falopian tube fracture fx left leg at age 3 year from fall Herniated disc lower back Infertility, female depression Family History: Family History Problem Relation Age of Onset Thyroid Mother Osteoporosis Mother Hypertension Father Heart Father other (circulatory issue) Father No Known Problems Sister No Known Problems Sister No Known Problems Brother Diabetes Maternal Grandmother Hypertension Maternal Grandmother Aneurysm Maternal Grandfather Heart Maternal Grandfather Colon Cancer Paternal Grandmother Cancer Paternal Grandfather Bone, Liver and Lung No Known Problems Daughter No Known Problems Son Breast Cancer Maternal Aunt 75 Past Surgical History: PAST SURGICAL HISTORY Procedure Laterality Date ADENOIDECTOMY [...] TONSILLECTOMY PRIMARY/SECONDARY <AGE 14 age 11 Tonsillectomy Social History: Social History Tobacco Use Smoking status: Former Current packs/day: 0.00 Types: Cigarettes Start date: 05/2002 Quit date: 2002 Years since quittin.9 Smokeless tobacco: Never Vaping Use Vaping status: Never Used Substance Use Topics Alcohol use: Yes Comment: social Drug use: No Allergies: ALLERGIES Allergen Reactions Morphine Itching Itchy skin on arms Allergies updated: Yes Medications: Current Outpatient Medications Medication Sig methocarbamol (ROBAXIN) 500 mg tablet TAKE 1 AND 1/2 TABLETS BY MOUTH 3 TIMES A DAY NEEDED FOR PAIN/SPASMS drospirenone, contraceptive, (SLYND) 4 mg (28) tabet Take 1 tablet by mouth once daily. citalopram (CELEXA) 40 mg tablet Take 1 tablet by mouth once daily. buPROPion XL (WELLBUTRIN XL) 150 mg 24 hr tablet take 1 tablet by mouth once daily DO NOT CRUSH, CHEW, AND/OR DIVIDE No current facility-administered medications for this visit. Medications reviewed in detail and updated PRN. Yes Physical Exam: VS: not taken General Appearance: 44 year old female in no apparent distress; not ill or toxic appearing HEENT normal facies, no self-reported vision or hearing impairment, normal speech CHEST normal speech pace and normal respiratory effort Extremities: no self-reported swelling or edema Recent labs/Diagnostic studies: I have thoroughly reviewed this patients previous notes, encounters, labs, and results prior to this visit. Assessment and Plan Assessment & Plan Pelvic and perineal pain Orders: MRI FEMALE PELVIS WO/W IVCON; Future Surgical Lubricant Jelly gel; For MRI Female Pelvis, MRI department to provide. Administer intra-vaginal Surgilube immediately prior the MRI procedure (total amount to patient toleranace). iv contrast (will be provided with radiology test); MRI Female Pelvis Inject, intravenously, once for 1 dose. No IV access, insert saline lock prior to the beginning of sedation, infusion, injection of imaging exam. Discontinue saline lock post exam. If Pt has a central line or IVAD, may access foradministration according to line specific nursing protocol. Once exam is complete flush line and de-access according to line specific nursing protocol in the MR contrast administration guidelines link. Ovarian cyst, right Orders: MRI FEMALE PELVIS WO/W IVCON; Future Surgical Lubricant Jelly gel; For MRI Female Pelvis, MRI department to provide. Administer intra-vaginal Surgilube immediately prior the MRI procedure (total amount to patient toleranace). iv contrast (will be provided with radiology test); MRI Female Pelvis Inject, intravenously, once for 1 dose. No IV access, insert saline lock prior to the beginning of sedation, infusion, injection of imaging exam. Discontinue saline lock post exam. If Pt has a central line or IVAD, may access foradministration according to line specific nursing protocol. Once exam is complete flush line and de-access according to line specific nursing protocol in the MR contrast administration guidelines link. Dysmenorrhea Orders: MRI FEMALE PELVIS WO/W IVCON; Future Surgical Lubricant Jelly gel; For MRI Female Pelvis, MRI department to provide. Administer intra-vaginal Surgilube immediately prior the MRI procedure (total amount to patient toleranace). iv contrast (will be provided with radiology test); MRI Female Pelvis Inject, intravenously, once for 1 dose. No IV access, insert saline lock prior to the beginning of sedation, infusion, injection of imaging exam. Discontinue saline lock post exam. If Pt has a central line or IVAD, may access foradministration according to line specific nursing protocol. Once exam is complete flush line and de-access according to line specific nursing protocol in the MR contrast administration guidelines link. Deep dyspareunia Orders: MRI FEMALE PELVIS WO/W IVCON; Future Surgical Lubricant Jelly gel; For MRI Female Pelvis, MRI department to provide. Administer intra-vaginal Surgilube immediately prior the MRI procedure (total amount to patient toleranace). iv contrast (will be provided with radiology test); MRI Female Pelvis Inject, intravenously, once for 1 dose. No IV access, insert saline lock prior to the beginning of sedation, infusion, injection of imaging exam. Discontinue saline lock post exam. If Pt has a central line or IVAD, may access foradministration according to line specific nursing protocol. Once exam is complete flush line and de-access according to line specific nursing protocol in the MR contrast administration guidelines link. Endometriosis Orders: MRI FEMALE PELVIS WO/W IVCON; Future Menorrhagia with regular cycle Orders: COMPLETE BLOOD COUNT; Future IRON AND TIBC; Future FERRITIN; Future MRI FEMALE PELVIS WO/W IVCON; Future 1) MRI to evaluate for deep infiltrating endo given history 2) Labs to evaluate for anemia - discussed may need oral iron every other day vs iron infusions 3) Schedule with a surgeon after MRI Routed to schedulers to call her to schedule with a surgeon after MRI SIGNATURE: Berhane Ferrell APRN.TIM This was a Video visit, including two-way audio and video communication, in lieu of an in-person visit. The patient provided verbal consent to participate in the Distance Health visit. I spent 30 minutes speaking with the patient, conducting an interview, performing a limited exam, and educating the patient on my assessment and plan. This includes time spent, on the same day as the encounter, preparing to see the patient (eg, review of tests), ordering medications, tests, or procedures and documenting clinical information in the electronic or other health record. [facility] Telephone encounter Note * Telephone Encounter - Yue Ott RN - 10/03/2024 2:01 PM EST Patient notified. Yue Ott RN [facility]11-19-2024 Miscellaneous Notes* Telephone Encounter - Yue Ott RN - 10/03/2024 2:01 PM EST Patient notified. Yue Ott RN * Telephone Encounter - Dragan Portillo MD - 10/03/2024 1:51 PM EST Likely some blood accumulated after removal and worked its way out all at once rather than trickling out slowly. If slowed down and not saturating a pad in an hour wouldn't be concerned. Dragan Portillo MD * Telephone Encounter - Yue Ott RN - 10/03/2024 1:43 PM EST Patient had IUD removed yesterday. Calling today regarding her bleeding. Stated that her bleeding has been light since removal, but this afternoon she had a large gush with blood clots. Advised to continue to monitor and if heavy bleeding continues to call office back. Heavy bleeding precautions reviewed and when to call/be seen. No new pain/cramping. Asking if this is normal or if she needs to do anything else. Yue Ott RN documented in [facility] Telephone encounter Note * Telephone Encounter - Dragan Portillo MD - 10/03/2024 1:51 PM EST Likely some blood accumulated after removal and worked its way out all at once rather than trickling out slowly. If slowed down and not saturating a pad in an hour wouldn't be concerned. Dragan Portillo MD [facility]-19-[facility] Telephone encounter Note* Telephone Encounter - Yue Ott RN - 10/03/2024 1:43 PM EST Patient had IUD removed yesterday. Calling today regarding her bleeding. Stated that her bleeding has been light since removal, but this afternoon she had a large gush with blood clots. Advised to continue to monitor and if heavy bleeding continues to call office back. Heavy bleeding precautions reviewed and when to call/be seen. No new pain/cramping. Asking if this is normal or if she needs to do anything else. Yue Ott RN [facility]11-18-2024 NoteHNO ID: [id number] Author: DRAGAN PORTILLO MD Service: ? Author Type: Physician Type: Progress Notes Filed: 10/02/2024 14:04 Note Text: Vi presents for removal of IUD due to pain and malpositioned IUD. UNIVERSAL PROTOCOL / SAFETY CHECKLIST Procedure to be Performed: IUD removal Sign In: A Moment of CARE was completed. Personnel directly involved with the procedure wore the appropriate PPE (Personal Protective Equipment). Patient/Surrogate Stated/Verified: PATIENT VERIFIED(optional for EMERGENT procedures): Patient name, Date of , Relevant allergies, and The intended procedure Time Out Communication: Intended patient and procedure match the source documents. Consent documented and matches the intended procedure. No implant(s) inserted. Sign Out: SIGN OUT (optional for EMERGENT procedures): No specimen collected. All instruments, equipment, possible retained foreign bodies accounted for. Post-procedure follow-up management communicated and Plan of Care Visit completed when applicable. PROCEDURE: Speculum placed in vagina, IUD string visualized and grasped with ring forceps. ASSESSMENT/PLAN: IUD removed without difficulty, intact, and patient tolerated procedure well. Contraception plans: n/a Reviewed pre-conception guidelines including folic acid supplementation, optimal timing of intercourse, avoidance of smoking, alcohol, exposure to environmental chemicals and need for evaluation if not within 12 months. Dragan Portillo MD Vi Vela is a 44 year old female who presents for problem visit for heavy menses, malpositioned IUD and endometriosis. HPI: 44 YOF w/ heavy menses, endometriosis, Pain mostly w/ menses. Feels IUD poking her and pain flares mostly w/ menses. 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: Sexual Activity: Yes; Male; bilateral [...] Brother Diabetes Maternal Grandmother Hypertension Maternal Grandmother Aneurysm Maternal Grandfather Heart Maternal Grandfather Colon Cancer Paternal Grandmother Cancer Paternal Grandfather Bone, Liver and Lung No Known Problems Daughter No Known Problems Son Breast Cancer Maternal Aunt 75 Social History Tobacco Use Smoking status: Former Current packs/day: 0.00 Types: Cigarettes Start date: 05/2002 Quit date: 2002 Years since quittin.8 Smokeless tobacco: Never Vaping Use Vaping status: Never Used Substance Use Topics Alcohol use: Yes Comment: social Drug use: No Current Outpatient Medications Medication Sig methocarbamol (ROBAXIN) 500 mg tablet TAKE 1 AND 1/2 TABLETS BY MOUTH 3 TIMES A DAY NEEDED FOR PAIN/SPASMS citalopram (CELEXA) 40 mg tablet Take 1 tablet by mouth once daily. buPROPion XL (WELLBUTRIN XL) 150 mg 24 hr tablet take 1 tablet by mouth once daily DO NOT CRUSH, CHEW, AND/OR DIVIDE drospirenone, contraceptive, (SLYND) 4 mg (28) tabet Take 1 tablet by mouth once daily. No current facility-administered medications for this visit. Allergies As of Date: 10/02/2024 Allergen Noted Reaction MORPHINE 07/30/2014 Itching Fully Assessed 10/02/2024 Allergies and current medication updated:Yes SENSITIVE EXAM: The sensitive examination was discussed with the Patient or Patient's Authorized Bookkeeping Clerk. As applicable, any other physician, advance practice provider, medical student, or other health professional student that will be (more content not included)...[facility]11-18-2024 History of Present illness Narrative* Dragan Portillo MD - 10/02/2024 1:13 PM EST Vi presents for removal of IUD due to pain and malpositioned IUD. UNIVERSAL PROTOCOL / SAFETY CHECKLIST Procedure to be Performed: IUD removal Sign In: A Moment of CARE was completed. Personnel directly involved with the procedure wore the appropriate PPE (Personal Protective Equipment). Patient/Surrogate Stated/Verified: PATIENT VERIFIED(optional for EMERGENT procedures): Patient name, Date of , Relevant allergies, and The intended procedure Time Out Communication: Intended patient and procedure match the source documents. Consent documented and matches the intended procedure. No implant(s) inserted. Sign Out: SIGN OUT (optional for EMERGENT procedures): No specimen collected. All instruments, equipment, possible retained foreign bodies accounted for. Post-procedure follow-up management communicated and Plan of Care Visit completed when applicable. PROCEDURE: Speculum placed in vagina, IUD string visualized and grasped with ring forceps. ASSESSMENT/PLAN: IUD removed without difficulty, intact, and patient tolerated procedure well. Contraception plans: n/a Reviewed pre-conception guidelines including folic acid supplementation, optimal timing of intercourse, avoidance of smoking, alcohol, exposure to environmental chemicals and need for evaluation if not within 12 months. Dragan Portillo MD Vi Vela is a 44 year old female who presents for problem visit for heavy menses, malpositioned IUD and endometriosis. HPI: 44 YOF w/ heavy menses, endometriosis, Pain mostly w/ menses. Feels IUD poking her and pain flares mostly w/ menses. 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: Sexual Activity: Yes; Male; bilateral [...] Brother Diabetes Maternal Grandmother Hypertension Maternal Grandmother Aneurysm Maternal Grandfather Heart Maternal Grandfather Colon Cancer Paternal Grandmother Cancer Paternal Grandfather Bone, Liver and Lung No Known Problems Daughter No Known Problems Son Breast Cancer Maternal Aunt 75 Social History Tobacco Use Smoking status: Former Current packs/day: 0.00 Types: Cigarettes Start date: 05/2002 Quit date: 2002 Years since quittin.8 Smokeless tobacco: Never Vaping Use Vaping status: Never Used Substance Use Topics Alcohol use: Yes Comment: social Drug use: No Current Outpatient Medications Medication Sig methocarbamol (ROBAXIN) 500 mg tablet TAKE 1 AND 1/2 TABLETS BY MOUTH 3 TIMES A DAY NEEDED FOR PAIN/SPASMS citalopram (CELEXA) 40 mg tablet Take 1 tablet by mouth once daily. buPROPion XL (WELLBUTRIN XL) 150 mg 24 hr tablet take 1 tablet by mouth once daily DO NOT CRUSH, CHEW, AND/OR DIVIDE drospirenone, contraceptive, (SLYND) 4 mg (28) tabet Take 1 tablet by mouth once daily. No current facility-administered medications for this visit. Allergies As of Date: 10/02/2024 Allergen Noted Reaction MORPHINE 07/30/2014 Itching Fully Assessed 10/02/2024 Allergies and current medication updated:Yes SENSITIVE EXAM: The sensitive examination was discussed with the Patient or Patient's Authorized Bookkeeping Clerk. As applicable, any other physician, advance practice provider, medical student, or other health professional student that will be observing or involved in the sensitive examination for educational or training purposes was discussed with the Patient or Authorized Bookkeeping Clerk. The Patient or Authorized Bookkeeping Clerk has agreed to proceed with the sensitive examination. (Sensitive examination includes inspection and/or palpation of the breasts, pelvis, prostate and anorectal regions). EXAM: BP 104/62 Wt 159 lb (72.1kg) LMP 06/08/2024 GENERAL: pleasant, female in no apparent distress PELVIC: external genitalia normal, normal Bartholin's glands, urethra, [place]'s glands, no vulvar lesions, no cervical lesions, good vaginal support, physiologic discharge present, normal appearing perineal body and perianal region ASSESSMENT AND PLAN: Assessment & Plan Endometriosis Orders: CONSULT TO MINIMALLY INVASIVE GYNECOLOGIC SURGERY; Future Menorrhagia with regular cycle Orders: CONSULT TO MINIMALLY INVASIVE GYNECOLOGIC SURGERY; Future IUD removal. D/w her options. Desires trial slynd, tried OCPs, annovara, nuvaring and IUD. Dragan Portillo MD documented [facility] Telephone encounter Note * Telephone Encounter - Yue Ott RN - 09/15/2024 11:15 AM EDT Patient notified. Scheduled with RR for 30 min as advised below. Offered sooner appointment with another provider to remove IUD, but patient declined. States pain is very mild and intermittent and that she would call back if anything changes prior to her appt. She will call later date to schedule 6month u/s. Yue Ott RN [facility]11-01-2024 Miscellaneous Notes* Telephone Encounter - Yue Ott RN - 09/15/2024 11:15 AM EDT Patient notified. Scheduled with RR for 30 min as advised below. Offered sooner appointment with another provider to remove IUD, but patient declined. States pain is very mild and intermittent and that she would call back if anything changes prior to her appt. She will call later date to schedule 6month u/s. Yue Ott RN * Telephone Encounter - Lisha Castaneda APRN.CNP - 09/15/2024 8:00 AM EDT Please notify patient: RR out of office but reviewed ultrasound in absence. IUD malpositioned, recommend appt for removal and discussion of options to control endometriosis/symptoms with RR. Will need longer appt time. Ovarian cyst to left ovary noted, recommend repeat ultrasound in 6 months. Likely benign. Lisha Castaneda APRN.CNP documented in this encounterK[facility]11-[facility] Telephone encounter Note * Telephone Encounter - Lisha Castaneda APRN.CNP - 09/15/2024 8:00 AM EDT Please notify patient: RR out of office but reviewed ultrasound in absence. IUD malpositioned, recommend appt for removal and discussion of options to control endometriosis/symptoms with RR. Will need longer appt time. Ovarian cyst to left ovary noted, recommend repeat ultrasound in 6 months. Likely benign. Lisha Castaneda APRN.CNP [facility]10-31-2024 NoteHNO ID: [id number] Author: JACKIE POLANCO MD Service: ? Author Type: Physician Type: Progress Notes Filed: 09/14/2024 18:54 Note Text: The patient presents for requested ultrasound. Full report available in the Imaging tab in Epic. Jackie Polanco, [facility]10-31-2024 History of Present illness Narrative* Jackie Polanco MD - 09/14/2024 6:31 PM EDT The patient presents for requested ultrasound. Full report available in the Imaging tab in [facility]. Jackie Polanco MD documented in this encounterK[facility]10-28-[facility]24 Telephone encounter Note * Telephone Encounter - Belinda Robles RN - 09/11/2024 2:05 PM EDT Patient notified and voiced understanding. Transferred to [facility] to schedule pelvic ultrasound. Belinda Robles RN [facility]10-28-2024 Miscellaneous Notes* Telephone Encounter - Belinda Robles RN - 09/11/2024 2:05 PM EDT Patient notified and voiced understanding. Transferred to [facility] to schedule pelvic ultrasound. Belinda Robles RN * Telephone Encounter - Dragan Portillo MD - 09/11/2024 12:59 PM EDT yes US and trial of doxy to see if helps pain/aub/inflammation due to IUD. Dragan Portillo MD * Telephone Encounter - Blanak Perez RN - 09/11/2024 11:54 AM EDT Patient had IUD inserted on 07/14/24. Patient states that she has been bleeding nearly every day since the insertion. Enough that she needs a liner - which she usually wears a liner daily. Bright red to brown in color. On she noted the start of bladder irritation. When she presses on her abdomen above her pubic bone it's painful. Patient believes it's due to the IUD. She's feeling a little anxious since with her last IUD her uterus was punctured. Does not due month string checks. Sergey wasn't aware. Would you like a pelvic US to check location? Blanka Perez RN documented in [facility] Telephone encounter Note * Telephone Encounter - Dragan Portillo MD - 09/11/2024 12:59 PM EDT yes US and trial of doxy to see if helps pain/aub/inflammation due to IUD. Dragan Portillo MD [facility]10-28-2024 Telephone encounter Note* Telephone Encounter - Blanka Perez RN - 09/11/2024 11:54 AM EDT Patient had IUD inserted on 07/14/24. Patient states that she has been bleeding nearly every day since the insertion. Enough that she needs a liner - which she usually wears a liner daily. Bright red to brown in color. On she noted the start of bladder irritation. When she presses on her abdomen above her pubic bone it's painful. Patient believes it's due to the IUD. She's feeling a little anxious since with her last IUD her uterus was punctured. Does not due month string checks. Sergey wasn't aware. Would you like a pelvic US to check location? Blanka Perez, LANIE [facility]09-03-2024 [facility] Medical Records Department [address] [place] [address] History Physical Exam 07/18/24 0725 MR#: [id number] Acct: [id number] Name: VI VELA Rep #: [id number] : 1980 43 From: Mac Mcintyre MD PCP: ALDO Scruggs Status:REG [place] Location: [place] [address] History and Physical Date of Admission: 07/18/24 MR#: [id number] Acct: [id number] Name: VI VELA Rep #: [id number] : 1980 Provider: Dr. Mac Mcintyre MD Age/Sex: 43/F Location: [facility]HELL[facility] Status: Signed Intake Vital Signs 05/05/2408:24 Height 5 ft 4 in Weight: 153 lb BMI 26.2 Intake Visit Reasons: lumbar spine Accompanied by: Is patient in pain?: No Allergies morphine Adverse Reaction (Verified 07/04/24 09:07) Itching Medications ???Medication ???Instructions ???Recorded ???Confirmed ???Type ibuprofen 600 mg tablet 600 mg PO Q6H PRN PRN Pain Score 12/29/20 07/07/24 Rx 1-3 #30 tabs cholecalciferol (vitamin D3) 25 25 mcg PO DAILY 04/24/21 07/07/24 History mcg (1,000 unit) chewable tablet (Vitamin D3) citalopram 40 mg tablet 40 mg PO DAILY 04/24/21 07/07/24 History bupropion HCl 150 mg 24 hr tablet, 150 mg PO QDAY 05/05/24 07/07/24 History extended release tizanidine 2 mg tablet 2 mg PO QHS PRN muscle spasticity 05/05/24 07/07/24 History segesterone acet 0.15 mg-ethinyl 1 vag ring vaginal QMONTH 07/04/24 07/07/24 History estradiol 0.013 mg/24 hr vaginal ring (Annovera) PFSH Medical History COVID Wears hearing aid Loss of hearing Depression Restless legs History of chemical tubal occlusion Wears glasses Wears contact lenses Anxiety Alcohol use Back pain Injury of back Former smoker History of herniated intervertebral disc Stomach ulcer Surgical History History of hysteroscopy History of tonsillectomy and adenoidectomy Hx of laparoscopy History of foot surgery History of delivery Family History Other Alcoholism CVA (cerebral vascular accident) Heart disease Osteoporosis Thyroid disorder Social History Smoking Status: Former smoker alcohol intake: current alcohol intake frequency: holidays/special occasions only substance use type: does not use what type of physical activity do you participate in: yoga frequency: 3-4 times per week HPI lumbar spine Details: This documentation accurately reflects the service provided and the decisions made by me, Dr. Mac Mcintyre MD 07/07/24 1322. Part of today???s visit was documented by Noelle URENA , acting as scribe. VI VELA is a 43 year old F here today for Pre-Op D.O.S 07/18/2024 she is having done L5- S1 Minimally Invasive Transforaminal Lumbar interbody fusion. *Patient did test Positive for Covid on 07/01/2024. 05/05/24: VI VELA is a 43 year old F here today for low back pain. Pt. advises she has had a herniated disc for 11 years but has been experiencing increased pain for a about a year and a half. She states she fell down her stairs in August of 2022. She was seen at the [facility] where xrays of her right hip were taken and were negative for fracture. She continued to have pain and had been seeing Dr. Baires for senior care provider. She states the pain is actually worse on the left side of her low back. She has done PT as well as pain management for injections and nerve ablations with Dr. Meadows. Dr. Baires ordered an lumbar spine MRI. She has been seeing Dr. Adams at the [facility] who recommended a disc replacement but it was denied her insurance. Vi had a lumbar disc herniation about 11 years ago which was treated with epidural injections and her radicular pain resolved over 6 months. She then had back pain localized over the left SI joint region during her 2 pregnancies 3 and 5 years ago. After these pregnancies she did receive SI joint injections which seem to help back then. About 2 years ago she had a bad fall towards her right hip and severe aggravation of her pain. Her pain starts in the lower back towards the left going to the left buttock region. She denies any tingling numbness of the lower extremities. She is able to walk good amounts of distances but standing and sitting for long peers of time becomes a problem. She has had numerous injections through pain management over the last 2 years without significant help. She also tried physical therapy and chiropractic treatment which also did not (more content not included)...[facility]08-30-2024 Instructions* Patient Instructions* Adriana Park MA - 07/14/2024 8:31 AM EDT POST IUD INSTRUCTIONS You may have irregular bleeding during the first 3 months of use. You may have mild-severe cramping for the next 48 hours. You may use over the counter medication (Motrin, Tylenol) as needed. Your IUD must be removed or replaced based on the following table: IUD Type Removed or replaced within: Madeline 3 years Kyleena 5 years Mirena 8 years Liletta 8 years Paragard 10 years Call the office for signs/symptoms of infection such as severe cramping, fever, or unusual bleeding. Check for string placement as instructed by your doctor. If you have any additional questions, please contact the office. documented in this encounterK[facility]08-30-[facility]24 NoteHNO ID: [id number] Author: DRAGAN PORTILLO MD Service: ? Author Type: Physician Type: Progress Notes Filed: 07/14/2024 08:52 Note Text: Reeling Operator offered: Patient accepts, visit chaperoned by Adriana Park MA. Vi presents today for IUD insertion for menstrual dysfunction. Patient's last menstrual period was 06/08/2024 (exact date). GC/chlamydia: Not done: no risk factors and/or patient declines screening test: negative Side effects including irregular bleeding were discussed with the patient. The patient understands that it should be removed in 8 years or sooner if the patient desires a . IUD source: office provided IUD lot #: [id number] Exp date: 07/14/2026 UNIVERSAL PROTOCOL / SAFETY CHECKLIST Procedure to be Performed: Mirena IUD insertion Sign In: A Moment of CARE was completed. Personnel directly involved with the procedure wore the appropriate PPE (Personal Protective Equipment). Patient/Surrogate Stated/Verified: PATIENT VERIFIED(optional for EMERGENT procedures): Patient name, Date of , Relevant allergies, and The intended procedure Time Out Communication: Intended patient and procedure match the source documents. Consent documented and matches the intended procedure. Implant(s) inserted: Correct implant(s) confirmed including size and side. and Expiration date(s) reviewed. Sign Out: SIGN OUT (optional for EMERGENT procedures): No specimen collected. All instruments, equipment, possible retained foreign bodies accounted for. Post-procedure follow-up management communicated and Plan of Care Visit completed when applicable. Dragan Portillo M.D. The cervix was prepped with betadine. The uterus sounded to 8 cm and the uterus is Retroverted.. Using sterile technique, the Mirena IUD was inserted without difficulty and the string was cut to 2cm from the external os of the cervix. Patient tolerated procedure well. PLAN: Patient was advised to observe for signs and symptoms of infection including but not limited to fever, malodorous vaginal discharge and/or pain. The patient was told to check the string monthly for accurate placement. Bleeding expectations were reviewed. Follow up for next annual exam or sooner as needed. Dragan Portillo [facility]08-30-2024 History of Present illness Narrative* Dragan Portillo MD - 07/14/2024 8:30 AM EDT Reeling Operator offered: Patient accepts, visit chaperoned by Adriana Park MA. Vi presents today for IUD insertion for menstrual dysfunction. Patient's last menstrual period was 06/08/2024 (exact date). GC/chlamydia: Not done: no risk factors and/or patient declines screening test: negative Side effects including irregular bleeding were discussed with the patient. The patient understands that it should be removed in 8 years or sooner if the patient desires a . IUD source: office provided IUD lot #: [id number] Exp date: 07/14/2026 UNIVERSAL PROTOCOL / SAFETY CHECKLIST Procedure to be Performed: Mirena IUD insertion Sign In: A Moment of CARE was completed. Personnel directly involved with the procedure wore the appropriate PPE (Personal Protective Equipment). Patient/Surrogate Stated/Verified: PATIENT VERIFIED(optional for EMERGENT procedures): Patient name, Date of , Relevant allergies, and The intended procedure Time Out Communication: Intended patient and procedure match the source documents. Consent documented and matches the intended procedure. Implant(s) inserted: Correct implant(s) confirmed including size and side. and Expiration date(s) reviewed. Sign Out: SIGN OUT (optional for EMERGENT procedures): No specimen collected. All instruments, equipment, possible retained foreign bodies accounted for. Post-procedure follow-up management communicated and Plan of Care Visit completed when applicable. Dragan Portillo M.D. The cervix was prepped with betadine. The uterus sounded to 8 cm and the uterus is Retroverted.. Using sterile technique, the Mirena IUD was inserted without difficulty and the string was cut to 2cm from the external os of the cervix. Patient tolerated procedure well. PLAN: Patient was advised to observe for signs and symptoms of infection including but not limited to fever, malodorous vaginal discharge and/or pain. The patient was told to check the string monthlyfor accurate placement. Bleeding expectations were reviewed. Follow up for next annual exam or sooner as needed. Dragan Portillo MD documented in this encounter[facility]08[facility]24 NoteHNO ID: [id number] Author: DRAGAN PORTILLO MD Service: ? Author Type: Physician Type: Progress Notes Filed: 07/11/2024 14:11 Note Text: Vi Vela is a 43 year old female who presents for problem visit for f/u heavy menses. Has been on Annovera and did well from mood standpoint but bleeding is now getting worse again. Bleeds through a tampon in 1.5 hrs and bleeds through, has to wear a full pad w/ it. Had bleeding for almost 3 weeks straight. This month not bleeding as much between menses. Taking annovera out 4-5 days a month and has to leave it out that long b/c still bleeding. Spinal fusion next week. 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: Sexual Activity: Yes; Male; bilateral salpingectomy Contraception: Tubal Ligation PAST MEDICAL HISTORY No date: Abnormal Pap smear of cervix Comment: 12 years ago- 1 neg No date: Anemia No date: anxiety No date: Breast disorder Comment: breast biopsy 06/2015- benign 2012: Dyspepsia No date: Endometriosis Comment: removed right falopian tube No date: fracture Comment: fx left leg at age 3 year from fall No date: Herniated disc Comment: lower back No date: Infertility, female No date: depression PAST SURGICAL HISTORY age 11: ADENOIDECTOMY PRIMARY Comment: Adenoidectomy 08/06/2014: APPENDECTOMY 05/2016: SECTION HX Comment: placenta previa No date: HYSTEROSCOPY, DIAGNOSTIC (SEPARATE Comment: for malpositioned IUD 05/01/2021: LAPAROSCOPY W/RMVL ADNEXAL STRUCTURES; Left Comment: left salpingectomy, right previously removed 08/06/2014: LAPS ABD PRTMANDOMENTUM DX W/WO SPEC BR/WA SPX Comment: Laparoscopy AND Right Tube Removed 02/13/2021: MIRENA IUD Comment: Placed in office 2009: PAST SURGICAL HISTORY OF Comment: cyst of right foot 08/06/2014: SEPTOPLASTY 07/12/2017: SIGMOIDOSCOPY FLX DX W/COLLJ SPEC BR/WA IF PFRMD Comment: Sigmoidoscopy, flexible age 11: TONSILLECTOMY PRIMARY/SECONDARY Comment: Tonsillectomy FAMILY HISTORY Problem Relation Age of Onset Thyroid Mother Osteoporosis Mother Hypertension Father Heart Father other (circulatory issue) Father No Known Problems Sister No Known Problems Sister No Known Problems Brother Diabetes Maternal Grandmother Hypertension Maternal Grandmother Aneurysm Maternal Grandfather Heart Maternal Grandfather Colon Cancer Paternal Grandmother Cancer Paternal Grandfather Bone, Liver and Lung No Known Problems Daughter No Known Problems Son Breast Cancer Maternal Aunt 75 Social History Tobacco Use Smoking status: Former Current packs/day: 0.00 Types: Cigarettes Start date: 05/2002 Quit date: 2002 Years since quittin.6 Smokeless tobacco: Never Vaping Use Vaping status: Never Used Substance Use Topics Alcohol use: Yes Comment: social Drug use: No Current Outpatient Medications Medication Sig citalopram (CELEXA) 40 mg tablet Take 1 tablet by mouth once daily. segesterone ac-ethin estradiol (ANNOVERA) 0.15-0.013 mg/24 hour vaginal ring Use 1 Each vaginally as directed. Insert 1 ring vaginally. Following insertion, ring should remain in place for 24 continuous days, then removed for 4 days buPROPion XL (WELLBUTRIN XL) 150 mg 24 hr tablet take 1 tablet by mouth once daily DO NOT CRUSH, CHEW, AND/OR DIVIDE cholecalciferol (VITAMIN D3) 50 mcg (2,000 unit) tablet Take 1,000 Units by mouth once daily. No current facility-administered medications for this visit. Allergies As of Date: 07/11/2024 Allergen Noted Reaction MORPHINE 07/30/2014 Itching Fully Assessed 06/05/2024 Allergies and current medication updated:Yes EXAM: LMP 03/27/2024 GENERAL: pleasant, female in no apparent distress ASSESSMENT AND PLAN: endometriosis and heavy menses, doing well on annovera for her PMS/mood but not bleeding. R/B/A to trial Mirena w/ US guidance/confirmation of placement at top of endometrium reviewed. pretreat w/ ibuprofen and misoprostol. Desires to proced. d/w her still can use annovera for pms/mood w/ IUD if needed Dragan Portillo [facility]08-27-2024 History of Present illness Narrative* Dragan Portillo MD - 07/11/2024 11:10 AM EDT Vi Vela is a 43 year old female who presents for problem visit for f/u heavy menses. Has been on Annovera and did well from mood standpoint but bleeding is now getting worse again. Bleedsthrough a tampon in 1.5 hrs and bleeds through, has to wear a full pad w/ it. Had bleeding for almost 3 weeks straight. This month not bleeding as much between menses. Taking annovera out 4- 5 days a month and has to leave it out that long b/c still bleeding. Spinal fusion next week. 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: Sexual Activity: Yes; Male; bilateral salpingectomy Contraception: Tubal Ligation PAST MEDICAL HISTORY No date: Abnormal Pap smear of cervix Comment: 12 years ago- 1 neg No date: Anemia No date: anxiety No date: Breast disorder Comment: breast biopsy 06/2015- benign 2012: Dyspepsia No date: Endometriosis Comment: removed right falopian tube No date: fracture Comment: fx left leg at age 3 year from fall No date: Herniated disc Comment: lower back No date: Infertility, female No date: depression PAST SURGICAL HISTORY age 11: ADENOIDECTOMY PRIMARY <AGE 14 Comment: Adenoidectomy 08/06/2014: APPENDECTOMY 05/2016: SECTION HX Comment: placenta previa No date: HYSTEROSCOPY, DIAGNOSTIC (SEPARATE Comment: for malpositioned IUD 05/01/2021: LAPAROSCOPY W/RMVL ADNEXAL STRUCTURES; Left Comment: left salpingectomy, right previously removed 08/06/2014: LAPS ABD PRTM&OMENTUM DX W/WO SPEC BR/WA SPX Comment: Laparoscopy & Right Tube Removed 02/13/2021: MIRENA IUD Comment: Placed in office 2009: PAST SURGICAL HISTORY OF Comment: cyst of right foot 08/06/2014: SEPTOPLASTY 07/12/2017: SIGMOIDOSCOPY FLX DX W/COLLJ SPEC BR/WA IF PFRMD Comment: Sigmoidoscopy, flexible age 11: TONSILLECTOMY PRIMARY/SECONDARY <AGE 14 Comment: Tonsillectomy FAMILY HISTORY Problem Relation Age of Onset Thyroid Mother Osteoporosis Mother Hypertension Father Heart Father other (circulatory issue) Father No Known Problems Sister No Known Problems Sister No Known Problems Brother Diabetes Maternal Grandmother Hypertension Maternal Grandmother Aneurysm Maternal Grandfather Heart Maternal Grandfather Colon Cancer Paternal Grandmother Cancer Paternal Grandfather Bone, Liver and Lung No Known Problems Daughter No Known Problems Son Breast Cancer Maternal Aunt 75 Social History Tobacco Use Smoking status: Former Current packs/day: 0.00 Types: Cigarettes Start date: 05/2002 Quit date: 2002 Years since quittin.6 Smokeless tobacco: Never Vaping Use Vaping status: Never Used Substance Use Topics Alcohol use: Yes Comment: social Drug use: No Current Outpatient Medications Medication Sig citalopram (CELEXA) 40 mg tablet Take 1 tablet by mouth once daily. segesterone ac-ethin estradiol (ANNOVERA) 0.15-0.013 mg/24 hour vaginal ring Use 1 Each vaginally as directed. Insert 1 ring vaginally. Following insertion, ring should remain in place for 24 continuous days, then removed for 4 days buPROPion XL (WELLBUTRIN XL) 150 mg 24 hr tablet take 1 tablet by mouth once daily DO NOT CRUSH, CHEW, AND/OR DIVIDE cholecalciferol (VITAMIN D3) 50 mcg (2,000 unit) tablet Take 1,000 Units by mouth once daily. No current facility-administered medications for this visit. Allergies As of Date: 07/11/2024 Allergen Noted Reaction MORPHINE 07/30/2014 Itching Fully Assessed 06/05/2024 Allergies and current medication updated:Yes EXAM: LMP 03/27/2024 GENERAL: pleasant, female in no apparent distress ASSESSMENT AND PLAN: endometriosis and heavy menses, doing well on annovera for her PMS/mood but not bleeding. R/B/A to trial Mirena w/ US guidance/confirmation of placement at top of endometrium reviewed. pretreat w/ ibuprofen and misoprostol. Desires to proced. d/w her still can use annovera for pms/mood w/ IUD if needed Dragan Portillo MD documented [facility] this encounter[facility] Telephone encounter Note * Telephone Encounter - Dragan Portillo MD - 06/22/2024 5:03 PM EDT schedule Virtual visit to discuss options. Dragan Portillo MD [facility]08-08-2024 Miscellaneous Notes* Telephone Encounter - Dragan Portillo MD - 06/22/2024 5:03 PM EDT schedule Virtual visit to discuss options. Dragan Portillo MD documented in this encounterK[facility]07-[facility]-2024 Instructions* Patient Instructions* Rai You APRN.CNP - 06/05/2024 8:32 AM EDT Please seek further in person evaluation for persistent or worsening symptoms. documented in this encounterKet[facility]07-22-2024 NoteHNO ID: [id number] Author: RAI YOU APRN.CNP Service: ? Author Type: Nurse Practitioner Type: Progress Notes Filed: 06/05/2024 08:32 Note Text: Telemedicine Visit - Distance Health Virtual Visit Note Patient seen on EyeSee[employer] Video Visit platform. Location of patient: [place] I have communicated my name and active licensure. The patient's identity and physical location were verified at the time of this visit. Either the patient or their legal players club representative has been informed of the risks and benefits of -- and alternatives to -- treatment through a remote evaluation and consents to proceed with the evaluation remotely. History of Present Illness Vi Vela is a 43 year old female who reports she developed left eye redness this morning. Had crusting and matting of the lashes and some injection to her lower aspect. No URI or allergic rhinitis. Does wear contacts, does not sleep in them, they are extended wear. Some discomfort to her eye, present mostly when she blinks, no foreign body sensation. Reports Hx of similar and generally always considered bacterial infection. PAST MEDICAL HISTORY Diagnosis Date Abnormal Pap [...] Brother Diabetes Maternal Grandmother Hypertension Maternal Grandmother Aneurysm Maternal Grandfather Heart Maternal Grandfather Colon Cancer Paternal Grandmother Cancer Paternal Grandfather Bone, Liver and Lung No Known Problems Daughter No Known Problems Son Breast Cancer Maternal Aunt 75 Social History Tobacco Use Smoking status: Former Years: .5 Types: Cigarettes Quit date: 2002 Years since quittin.5 Smokeless tobacco: Never Vaping Use Vaping Use: Never used Substance Use Topics Alcohol use: Yes Comment: social Drug use: No Current Outpatient Medications Medication Sig citalopram (CELEXA) 40 mg tablet Take 1 tablet by mouth once daily. segesterone ac-ethin estradiol (ANNOVERA) 0.15-0.013 mg/24 hour vaginal ring Use 1 Each vaginally as directed. Insert 1 ring vaginally. Following insertion, ring should remain in place for 24 continuous days, then removed for 4 days buPROPion XL (WELLBUTRIN XL) 150 mg 24 hr tablet take 1 tablet by mouth once daily DO NOT CRUSH, CHEW, AND/OR DIVIDE cholecalciferol (VITAMIN D3) 50 mcg (2,000 unit) tablet Take 1,000 Units by mouth once daily. No current facility-administered medications for this visit. ALLERGIES Allergen Reactions Morphine Itching Itchy skin on arms Video Exam (Examination performed via Video enabled technology) General appearance: Alert, oriented, pleasant, in NAD :Yes Ill appearing :No Lethargic appearing :No Respiratory distress :No No periorbital edema or erythema noted, injection seems to be isolated to lower aspect of left eye ASSESSMENT/PLAN: 1. Redness of left eye - ICD9: 379.93, ICD10: H57.89 Feel difficult to label as conjunctivitis given lack of injection to whole eye. Reports kids sick with cold like symptoms over last week. Feel this is most likely viral or similar presentation, no reason to believe at this point S/S's reflect bacterial etiology. Recommended continued monitoring and symptomatic treatments like warm/cool compresses and OTC analgesics if needed. PLAN: - Red flags discussed for need for in person care - All questions answered Rai You APRN.[facility]07-22-2024 History of Present illness Narrative* Rai You, CARLOS.TIM - 06/05/2024 8:12 AM EDT Telemedicine Visit - Distance Health Virtual Visit Note Patient seen on EyeSee360 Video Visit platform. Location of patient: [place] I have communicated my name and active licensure. The patient's identity and physical location wereverified at the time of this visit. Either the patient or their legal players club representative has been informed of the risks and benefits of -- and alternatives to -- treatment through a remote evaluation andconsents to proceed with the evaluation remotely. History of Present Illness Vi Vela is a 43 year old female who reports she developed left eye redness this morning. Had crusting and matting of the lashes and some injection to her lower aspect. No URI or allergic rhinitis. Does wear contacts, does not sleep in them, they are extended wear. Some discomfort to hereye, present mostly when she blinks, no foreign body sensation. Reports Hx of similar and generally always considered bacterial infection. PAST MEDICAL HISTORY Diagnosis Date Abnormal Pap [...] Brother Diabetes Maternal Grandmother Hypertension Maternal Grandmother Aneurysm Maternal Grandfather Heart Maternal Grandfather Colon Cancer Paternal Grandmother Cancer Paternal Grandfather Bone, Liver and Lung No Known Problems Daughter No Known Problems Son Breast Cancer Maternal Aunt 75 Social History Tobacco Use Smoking status: Former Years: .5 Types: Cigarettes Quit date: 2002 Years since quittin.5 Smokeless tobacco: Never Vaping Use Vaping Use: Never used Substance Use Topics Alcohol use: Yes Comment: social Drug use: No Current Outpatient Medications Medication Sig citalopram (CELEXA) 40 mg tablet Take 1 tablet by mouth once daily. segesterone ac-ethin estradiol (ANNOVERA) 0.15-0.013 mg/24 hour vaginal ring Use 1 Each vaginally as directed. Insert 1 ring vaginally. Following insertion, ring should remain in place for 24 continuous days, then removed for 4 days buPROPion XL (WELLBUTRIN XL) 150 mg 24 hr tablet take 1 tablet by mouth once daily DO NOT CRUSH, CHEW, AND/OR DIVIDE cholecalciferol (VITAMIN D3) 50 mcg (2,000 unit) tablet Take 1,000 Units by mouth once daily. No current facility-administered medications for this visit. ALLERGIES Allergen Reactions Morphine Itching Itchy skin on arms Video Exam (Examination performed via Video enabled technology) General appearance: Alert, oriented, pleasant, in NAD :Yes Ill appearing :No Lethargic appearing :No Respiratory distress :No No periorbital edema or erythema noted, injection seems to be isolated to lower aspect of left eye ASSESSMENT/PLAN: 1. Redness of left eye - ICD9: 379.93, ICD10: H57.89 Feel difficult to label as conjunctivitis given lack of injection to whole eye. Reports kids sick with cold like symptoms over last week. Feel this is most likely viral or similar presentation, no reason to believe at this point S/S's reflect bacterial etiology. Recommended continued monitoring andsymptomatic treatments like warm/cool compresses and OTC analgesics if needed. PLAN: - Red flags discussed for need for in person care - All questions answered Rai You APRN.CNP [facility] encounter Note * Telephone Encounter - Lizette Gamble RN - 05/24/2024 2:36 PM EDT We reached out to mammogram tech and She stated The area scanned was her pain, near the axilla where the patient complained of pain. Wealways confirm w/ the patient the area scanned is over the area of concern. If you look at the diagnostic mamm pictures there is a triangle marking the area of pain. It is axillary tail area not up in axilla. Lizette Gamble RN [facility]07-10-2024 Miscellaneous Notes* Telephone Encounter - Lizette Gamble RN - 05/24/2024 2:36 PM EDT We reached out to mammogram tech and She stated The area scanned was her pain, near the axilla where the patient complained of pain. Wealways confirm w/ the patient the area scanned is over the area of concern. If you look at the diagnostic mamm pictures there is a triangle marking the area of pain. It is axillary tail area not up in axilla. Lizette Gamble RN * Telephone Encounter - Lisha Castaneda APRN.CNP - 05/10/2024 12:49 PM EDT Mammo and ultrasound was ordered for axillary pain but I do not see anything specified in the ultrasound report about axillary images, just breast ultrasound at 1-2 o' clock position. Can radiology be called to confirm that axillary images were obtained/normal? Lisha Castaneda APRN.CNP [facility] Hospital Discharge instructions Patient Education 05/22/2024 12:42:22 Colonoscopy, Adult, Care After, Ucly-rp-Cryi Colonoscopy, Adult, Care After This sheet gives you information about how to care for yourself after your procedure. Your doctor may also give you more specific instructions. If you have problems or questions, call your doctor. What can I expect after the procedure? After the procedure, it is common to have: A small amount of blood in your poop for 24 hours. Some gas. Mild cramping or bloating in your belly. Follow these instructions at home: General instructions For the first 24 hours after the procedure: ?Do not drive or use machinery. ?Do not sign important documents. ?Do not drink alcohol. ?Do your daily activities more slowly than normal. ?Eat foods that are soft and easy to digest. Take mncb-hiv-jkkctur or prescription medicines only as told by your doctor. To help cramping and bloating: Try walking around. Put heat on your belly (abdomen) as told by your doctor. Use a heat source that your doctor recommends, such as a moist heat pack or a heating pad. ?Put a towel between your skin and the heat source. ?Leave the heat on for 20 30 minutes. ?Remove the heat if your skin turns bright red. This is especially important if you cannot feel pain, heat, or cold. You can get burned. Eating and drinking Drink enough fluid to keep your pee (urine) clear or pale yellow. Return to your normal diet as told by your doctor. Avoid heavy or fried foods that are hard to digest. Avoid drinking alcohol for as long as told by your doctor. Contact a doctor if: You have blood in your poop (stool) 2 3 days after the procedure. Get help right away if: You have more than a small amount of blood in your poop. You see large clumps of tissue (blood clots) in your poop. Your belly is swollen. You feel sick to your stomach (nauseous). You throw up (vomit). You have a fever. You have belly pain that gets worse, and medicine does not help your pain. Summary After the procedure, it is common to have a small amount of blood in your poop. You may also have mild cramping and bloating in your belly. For the first 24 hours after the procedure, do not drive or use machinery, do not sign important documents, and do not drink alcohol. Get help right away if you have a lot of blood in your poop, feel sick to your stomach, have a fever, or have more belly pain. This information is not intended to replace advice given to you by your health care provider. Make sure you discuss any questions you have with your health care provider. Document Released: 12/04/2011 Document Revised: 09/01/2018 Document Reviewed: 07/26/2017 [employer] Patient Education 2020 [employer]. 05/22/2024 12:42:16 Monitored Anesthesia Care, Care After Monitored Anesthesia Care, Care After These instructions provide you with information about caring for yourself after your procedure. Your health care provider may also give you more specific instructions. Your treatment has been plannedaccording to current medical practices, but problems sometimes occur. Call your health care provider if you have any problems or questions after your procedure. What can I expect after the procedure? After your procedure, you may: Feel sleepy for several hours. Feel clumsy and have poor balance for several hours. Feel forgetful about what happened after the procedure. Have poor judgment for several hours. Feel nauseous or vomit. Have a sore throat if you had a breathing tube during the procedure. Follow these instructions at home: For at least 24 hours after the procedure: Have a responsible adult stay with you. It is important to have someone help care for you until youare awake and alert. Rest as needed. Do not: ?Participate in activities in which you could fall or become injured. ?Drive. ?Use heavy machinery. ?Drink alcohol. ?Take sleeping pills or medicines that cause drowsiness. ?Make important decisions or sign legal documents. ?Take care of children on your own. Eating and drinking Follow the diet that is recommended by your health care provider. If you vomit, drink water, juice, or soup when you can drink without vomiting. Make sure you have little or no nausea before eating solid foods. General instructions Take vtwf-mop-lyasoou and prescription medicines only as told by your health care provider. If you have sleep apnea, surgery and certain medicines can increase your risk for breathing problems. Follow instructions from your health care provider about wearing your sleep device: ?Anytime you are sleeping, including during daytime naps. ?While taking prescription pain medicines, sleeping medicines, or medicines that make you drowsy. If you smoke, do not smoke without supervision. Keep all follow-up visits as told by your health care provider. This is important. Contact a health care provider if: You keep feeling nauseous or you keep vomiting. You feel light-headed. You develop a rash. You have a fever. Get help right away if: You have trouble breathing. Summary For several hours after your procedure, you may feel sleepy and have poor judgment. Have a responsible adult stay with you for at least 24 hours or until you are awake and alert. This information is not intended to replace advice given to you by your health care provider. Make sure you discuss any questions you have with your health care provider. Document Released: 02/21/2017 Document Revised: 01/30/2019 Document Reviewed: 02/21/2017 [employer] Patient Education 2020 [employer]. 05/22/2024 12:42:09 Colon Polyps Colon Polyps Polyps are tissue growths inside the body. Polyps can grow in many places, including the large intestine (colon). A polyp may be a round bump or a mushroom-shaped growth. You could have one polyp or several. Most colon polyps are noncancerous (benign). However, some colon polyps can become cancerous over time. Finding and removing the polyps early can help prevent this. What are the causes? The exact cause of colon polyps is not known. What increases the risk? You are more likely to develop this condition if you: Have a family history of colon cancer or colon polyps. Are older than 50 or older than 45 if you are . Have inflammatory bowel disease, such as ulcerative colitis or Crohn's disease. Have certain hereditary conditions, such as: ?Familial adenomatous polyposis. ?Stoner syndrome. ?Turcot syndrome. ?Peutz Jeghers syndrome. Are overweight. Smoke cigarettes. Do not get enough exercise. Drink too much alcohol. Eat a diet that is high in fat and red meat and low in fiber. Had childhood cancer that was treated with abdominal radiation. What are the signs or symptoms? Most polyps do not cause symptoms. If you have symptoms, they may include: Blood coming from your rectum when having a bowel movement. Blood in your stool. The stool may look dark red or black. Abdominal pain. A change in bowel habits, such as constipation or diarrhea. How is this diagnosed? This condition is diagnosed with a colonoscopy. This is a procedure in which a lighted, flexible scope is inserted into the anus and then passed into the colon to examine the area. Polyps are sometimes found when a colonoscopy is done as part of routine cancer screening tests. How is this treated? Treatment for this condition involves removing any polyps that are found. Most polyps can be removed during a colonoscopy. Those polyps will then be tested for cancer. Additional treatment may be needed depending on the results of testing. Follow these instructions at home: Lifestyle Maintain a healthy weight, or lose weight if recommended by your health care provider. Exercise every day or as told by your health care provider. Do not use any products that contain nicotine or tobacco, such as cigarettes and e-cigarettes. If you need help quitting, ask your health care provider. If you drink alcohol, limit how much you have: ?0 1 drink a day for women. ? 0 2 drinks a day for men. Be aware of how much alcohol is in your drink. In the [place] one drink equals one 12 oz bottle of beer (355 mL), one 5 oz glass of wine (148 mL), or one 1 oz shot of hard liquor (44 mL). Eating and drinking Eat foods that are high in fiber, such as fruits, vegetables, and whole grains. Eat foods that are high in calcium and vitamin D, such as milk, cheese, yogurt, eggs, liver, fish, and broccoli. Limit foods that are high in fat, such as fried foods and desserts. Limit the amount of red meat and processed meat you eat, such as hot dogs, sausage, sloan, and lunch meats. General instructions Keep all follow-up visits as told by your health care provider. This is important. ?This includes having regularly scheduled colonoscopies. ?Talk to your health care provider about when you need a colonoscopy. Contact a health care provider if: You have new or worsening bleeding during a bowel movement. You have new or increased blood in your stool. You have a change in bowel habits. You lose weight for no known reason. Summary Polyps are tissue growths inside the body. Polyps can grow in many places, including the colon. Most colon polyps are noncancerous (benign), but some can become cancerous over time. This condition is diagnosed with a colonoscopy. Treatment for this condition involves removing any polyps that are found. Most polyps can be removed during a colonoscopy. This information is not intended to replace advice given to you by your health care provider. Make sure you discuss any questions you have with your health care provider. Document Released: 07/28/2005 Document Revised: 02/16/2019 Document Reviewed: 02/16/2019 [employer] Patient Education 2020 [employer]. Follow Up Care 04/27/2024 08:49:59 With:NESS WRAY MD, Clinical Gastroenterology Address: [address] [place] [address] [place] [address]- [phone] When: Unknown Comments:CALL DR LONGORIA OFFICE WITH ANY QUESTIONS OR CONCERNS. GO TO THE EMERGENCY ROOM WITH ANY URGENT CONCERNS. ONE POLYP WAS FOUND AND REMOVED. THE POLYP WILL BE SENT TO THE LAB FOR FURTHER STUDIES. [facility] 07-08-2024 Evaluation + Plan noteExtracted from: Title:History and Physical Author:JOSEPH WRAY MD Date:05/22/24 Orders: Lactated Ringers Infusion 1,000 mL, 1000 mL, Intravenous Communication Order (scheduled), 05/22/24 11:57:00 EDT, Once, 05/22/24 11:57:00 EDT, Urine test or waiver for women of child bearing age Communication Order (scheduled), 05/22/24 11:57:00 EDT, Once, 05/22/24 11:57:00 EDT, Fasting Blood Sugar prior to procedur if patient is diabetic Communication Order (scheduled), 05/22/24 11:57:00 EDT, Once, 05/22/24 11:57:00 EDT, Pathology Tissue Request Consult to Anesthesia, 05/22/24 11:57:00 EDT, *Other (specify in special instructions), Provide Anesthesia during Procedure Sign Consent, 05/22/24 11:57:00 EDT, Once, For Colonoscopy The patient is high risk screening for colon cancer. She has a family history of colorectal neoplasia. Consent conference held. [facility] 07-08-2024 Note Discharge Instructions Thank you for allowing [facility] to assist you with your healthcare needs. The following is importantdischarge information regarding your hospital visit. Your Care Team MANN, DOLORES L AGRICULTURAL CONSULTANT-CUTTING TOOL SHARPENER DR. NESS WRAY. Your Diagnosis COLONOSCOPY WITH POLYPECTOMY What to do next Follow Up Appointments Follow Up with NESS WRAY MD, Clinical Gastroenterology Where:[address] [facility] [place] [address]- [phone] Additional Information: CALL DR LONGORIA OFFICE WITH ANY QUESTIONS OR CONCERNS. GO TO THE EMERGENCY ROOM WITH ANY URGENT CONCERNS. ONE POLYP WAS FOUND AND REMOVED. THE POLYP WILL BE SENT TO THE LAB FOR FURTHER STUDIES. The Following Activity and Diet Have Been Ordered for You Discharge Activity - Ordered -- Other, Follow the post-operative/post-procedure activity instructions provided by your physician's office., 05/22/24 12:36:00 EDT Discharge Diet - Ordered -- Follow the post-operative/post-procedure diet instructions provided by your physician's office.,05/22/24 12:36:00 EDT Allergies morphine Rash Medications Please ask your primary doctor or pharmacist before taking any other medication not listed, including over the counter drugs, herbal medications, vitamins and or supplements as they may interact withyour home medications. What How Much When Instructions Last Dose Unchanged buPROPion (buPROPion 150 mg/ 24 hours (XL) oraltablet, extended release) 1 tab(s) by mouth Every 24 hours Duration: 90 Days Unchanged citalopram (CeleXA 40 mg oral tablet) 1 tab(s) by mouth Every day Unchanged ethinyl estradiol-etonogestrel (ethinyl estradiol-etonogestrel 0.015 mg-0.120 mg/ 24 hours vaginal ring) 1 Each Vaginal Every 4 weeks Insert a new ring on day 1 and use for 3 weeks, remove for 1 week, then repeat cycle Please take this list to your next doctor s visit. Bring all medications you take, including over the counter medications, herbals and other supplements with you to your doctor s visit. Patients and families are reminded to discard old lists and to update any records with all medication providers or retail pharmacies. Education Materials Colonoscopy, Adult, Care After This sheet gives you information about how to care for yourself after your procedure. Your doctor may also give you more specific instructions. If you have problems or questions, call your doctor. What can I expect after the procedure? After the procedure, it is common to have: A small amount of blood in your poop for 24 hours. Some gas. Mild cramping or bloating in your belly. Follow these instructions at home: General instructions For the first 24 hours after the procedure: ? Do not drive or use machinery. ? Do not sign important documents. ? Do not drink alcohol. ? Do your daily activities more slowly than normal. ? Eat foods that are soft and easy to digest. Take xppe-ipv-jrfsrbv or prescription medicines only as told by your doctor. To help cramping and bloating: Try walking around. Put heat on your belly (abdomen) as told by your doctor. Use a heat source that your doctor recommends, such as a moist heat pack or a heating pad. ? Put a towel between your skin and the heat source. ? Leave the heat on for 20 30 minutes. ? Remove the heat if your skin turns bright red. This is especially important if you cannot feel pain, heat, or cold. You can get burned. Eating and drinking Drink enough fluid to keep your pee (urine) clear or pale yellow. Return to your normal diet as told by your doctor. Avoid heavy or fried foods that are hard to digest. Avoid drinking alcohol for as long as told by your doctor. Contact a doctor if: You have blood in your poop (stool) 2 3 days after the procedure. Get help right away if: You have more than a small amount of blood in your poop. You see large clumps of tissue (blood clots) in your poop. Your belly is swollen. You feel sick to your stomach (nauseous). You throw up (vomit). You have a fever. You have belly pain that gets worse, and medicine does not help your pain. Summary After the procedure, it is common to have a small amount of blood in your poop. You may also have mild cramping and bloating in your belly. For the first 24 hours after the procedure, do not drive or use machinery, do not sign important documents, and do not drink alcohol. Get help right away if you have a lot of blood in your poop, feel sick to your stomach, have a fever, or have more belly pain. This information is not intended to replace advice given to you by your health care provider. Make sure you discuss any questions you have with your health care provider. Document Released: 12/04/2011 Document Revised: 09/01/2018 Document Reviewed: 07/26/2017 [employer] Patient Education 2020 [employer]. Monitored Anesthesia Care, Care After These instructions provide you with information about caring for yourself after your procedure. Your health care provider may also give you more specific instructions. Your treatment has been plannedaccording to current medical practices, but problems sometimes occur. Call your health care provider if you have any problems or questions after your procedure. What can I expect after the procedure? After your procedure, you may: Feel sleepy for several hours. Feel clumsy and have poor balance for several hours. Feel forgetful about what happened after the procedure. Have poor judgment for several hours. Feel nauseous or vomit. Have a sore throat if you had a breathing tube during the procedure. Follow these instructions at home: For at least 24 hours after the procedure: Have a responsible adult stay with you. It is important to have someone help care for you until youare awake and alert. Rest as needed. Do not: ? Participate in activities in which you could fall or become injured. ? Drive. ? Use heavy machinery. ? Drink alcohol. ? Take sleeping pills or medicines that cause drowsiness. ? Make important decisions or sign legal documents. ? Take care of children on your own. Eating and drinking Follow the diet that is recommended by your health care provider. If you vomit, drink water, juice, or soup when you can drink without vomiting. Make sure you have little or no nausea before eating solid foods. General instructions Take yvkl-fqw-nrgafvx and prescription medicines only as told by your health care provider. If you have sleep apnea, surgery and certain medicines can increase your risk for breathing problems. Follow instructions from your health care provider about wearing your sleep device: ? Anytime you are sleeping, including during daytime naps. ? While taking prescription pain medicines, sleeping medicines, or medicines that make you drowsy. If you smoke, do not smoke without supervision. Keep all follow-up visits as told by your health care provider. This is important. Contact a health care provider if: You keep feeling nauseous or you keep vomiting. You feel light-headed. You develop a rash. You have a fever. Get help right away if: You have trouble breathing. Summary For several hours after your procedure, you may feel sleepy and have poor judgment. Have a responsible adult stay with you for at least 24 hours or until you are awake and alert. This information is not intended to replace advice given to you by your health care provider. Make sure you discuss any questions you have with your health care provider. Document Released: 02/21/2017 Document Revised: 01/30/2019 Document Reviewed: 02/21/2017 [employer] Patient Education 2020 [employer]. Colon Polyps Polyps are tissue growths inside the body. Polyps can grow in many places, including the large intestine (colon). A polyp may be a round bump or a mushroom-shaped growth. You could have one polyp or several. Most colon polyps are noncancerous (benign). However, some colon polyps can become cancerous over time. Finding and removing the polyps early can help prevent this. What are the causes? The exact cause of colon polyps is not known. What increases the risk? You are more likely to develop this condition if you: Have a family history of colon cancer or colon polyps. Are older than 50 or older than 45 if you are . Have inflammatory bowel disease, such as ulcerative colitis or Crohn's disease. Have certain hereditary conditions, such as: ? Familial adenomatous polyposis. ? Stoner syndrome. ? Turcot syndrome. ? Peutz Jeghers syndrome. Are overweight. Smoke cigarettes. Do not get enough exercise. Drink too much alcohol. Eat a diet that is high in fat and red meat and low in fiber. Had childhood cancer that was treated with abdominal radiation. What are the signs or symptoms? Most polyps do not cause symptoms. If you have symptoms, they may include: Blood coming from your rectum when having a bowel movement. Blood in your stool. The stool may look dark red or black. Abdominal pain. A change in bowel habits, such as constipation or diarrhea. How is this diagnosed? This condition is diagnosed with a colonoscopy. This is a procedure in which a lighted, flexible scope is inserted into the anus and then passed into the colon to examine the area. Polyps are sometimes found when a colonoscopy is done as part of routine cancer screening tests. How is this treated? Treatment for this condition involves removing any polyps that are found. Most polyps can be removed during a colonoscopy. Those polyps will then be tested for cancer. Additional treatment may be needed depending on the results of testing. Follow these instructions at home: Lifestyle Maintain a healthy weight, or lose weight if recommended by your health care provider. Exercise every day or as told by your health care provider. Do not use any products that contain nicotine or tobacco, such as cigarettes and e-cigarettes. If you need help quitting, ask your health care provider. If you drink alcohol, limit how much you have: ? 0 1 drink a day for women. ? 0 2 drinks a day for men. Be aware of how much alcohol is in your drink. In the [place] one drink equals one 12 oz bottle of beer (355 mL), one 5 oz glass of wine (148 mL), or one 1 oz shot of hard liquor (44 mL). Eating and drinking Eat foods that are high in fiber, such as fruits, vegetables, and whole grains. Eat foods that are high in calcium and vitamin D, such as milk, cheese, yogurt, eggs, liver, fish, and broccoli. Limit foods that are high in fat, such as fried foods and desserts. Limit the amount of red meat and processed meat you eat, such as hot dogs, sausage, sloan, and lunch meats. General instructions Keep all follow-up visits as told by your health care provider. This is important. ? This includes having regularly scheduled colonoscopies. ? Talk to your health care provider about when you need a colonoscopy. Contact a health care provider if: You have new or worsening bleeding during a bowel movement. You have new or increased blood in your stool. You have a change in bowel habits. You lose weight for no known reason. Summary Polyps are tissue growths inside the body. Polyps can grow in many places, including the colon. Most colon polyps are noncancerous (benign), but some can become cancerous over time. This condition is diagnosed with a colonoscopy. Treatment for this condition involves removing any polyps that are found. Most polyps can be removed during a colonoscopy. This information is not intended to replace advice given to you by your health care provider. Make sure you discuss any questions you have with your health care provider. Document Released: 07/28/2005 Document Revised: 02/16/2019 Document Reviewed: 02/16/2019 [employer] Patient Education 2020 [employer] Additional Information VACCINATE! IT SAVES LIVES! Members of the community who have not yet received the COVID-19 vaccine and would like to receive it can visit one of [facility] vaccine clinics. There are many vaccine clinic locations within the State. For locations and available times, please visit https://gettheshot.coronavirus.[place].gov/. It is important to note that some COVID mobile vaccine clinics are held outdoors and may be canceled in rainy or stormy conditions. To learn more about pediatric vaccinations (ages 5-11), we invite you to visit the [facility] webpage. [email or web address]/[email or web address] [email or web address] learn more about the COVID-19 vaccine, we invite you to visit the CDC website for a list of frequently asked questions.https://www.cdc.gov/coronavirus/2019-ncov/vaccines/faq.html [employer] [facility] [employer] Patient Portal Access Instructions: Stay connected with your healthcare team and access your personal medical information anytime with the [employer] Patient Portal. Please follow the directions below to create your [employer] account: 1.Access the email account you provided upon registration to the hospital/physician office.2.Look for an invitation email from [facility].3.Open the email and access the invitation link: AcceptInvitation to [facility].4.Fill in the required mays to create your account. To access your account, visit [employer]. Click the blue button labeled Access Patient Portal and then log in with the username and password that you created in the steps above. You will be able to view your test results, lab results, a summary of your visits, upcoming appointments and more. There is also a convenient messaging option where you can send secure messages to your p rovider. In addition, you will have the ability to download any documents or summaries to your computer and/or send the information securely to a physician. Remember that your healthcare information is confidential, so carefully consider who you will allowto register on the [employer] Patient Portal for access to your information. You can also access the [facility] Patient Portal on the [employer] gypsy. Simply click on Patient Portal and then log into your account. If you would like to receive a full copy of your medical records, please contact the [facility] Medical Records Department by calling [phone], Wednesday through Wednesday between 8 a.m. and 4:30 p.m. HOW TO SAFELY DISPOSE OF PRESCRIPTION MEDICATIONS Please use one of the following methods to safely dispose of your unused medications. 1.Use a drug disposal kit: the drug disposal pouch allows you to safely discard your old and unuseddrugs. Ask your nurse to give you one when you are discharged.2.Visit a local take-back location: Many local pharmacies and police departments have programs that collect old and unwanted prescriptiondrugs. Call your local pharmacy or go to http://Projjix.Sencera/4J5Df6j to find one close to you.3.Make use of household items: Use cat litter or old coffee grounds to dispose medications if other options arenot available. Mix your drugs with these household products, seal them in an airtight container andthrow it into the garbage. Call [facility]: [phone] to be sure your drugs can be disposed of in this way. Some medicines may require a different approach.4.Never flush your medications down the toilet. IF YOU HAVE BEEN PRESCRIBED AN OPIOID FOR PAIN If you have been prescribed an opioid (such as hydrocodone, oxycodone or morphine), it is critical to understand the possible side effects and risks of opioid pain medications. Even when taken as directed, opioids can have several side effects including: Tolerance, meaning you might need to take more of a medication for the same pain relief. Nausea, vomiting and/or constipation. Sleepiness, dizziness, dry mouth, confusion, depression or itching. Physical dependence, meaning you have withdrawal symptoms when a medication is stopped, can develop within a few days. KNOW YOUR RESPONSIBILITIES It is important to know exactly how much and how often to take the opioid pain medications you are prescribed. Never take opioids in higher amounts or more often than prescribed. Do not combine opioids with alcohol or other drugs that cause drowsiness, such as benzodiazepines, also known as benzos, including diazepam and alprazolam, muscle relaxants or sleep aids. Never sell or share prescription opioids. This is illegal. Store opioids in a secure place and out of reach of others (including children, family, friends and visitors). The last page of this document has been signed and retained as a CHART COPY. Signatures Patient Education Materials Colonoscopy, Adult, Care After, [id number] Monitored Anesthesia Care, Care After Colon Polyps Medication Leaflets My discharge plan and instructions have been reviewed and explained to me and I,NICK VI H understand my current condition and have read and understand these discharge instructions. I have received a written copy of the plan/instructions. If I have questions, I am aware that I should contact my doctor. 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 We discussed the potential risks including but not limited to respiratory depression, infection, bleeding, perforation, potential need for surgery, and even . Medications: SEE ANESTHESIA RECORD Technique and findings: The Olympus video colonoscope was insinuated through the anus and advanced to the cecum without difficulty. After washing and suctioning the preparation was very good. The ileocecal valve and fold were identified appendiceal orifice was seen. Multiple photographs were obtained there. Retroflexion in the ascending colon was performed. Multiple examinations of each section of the colon were performed. In the mid ascending colon a sessile 7 mm polyp was identified and photographed. It was then cold snare excised in its entirety. Polypectomy site was evaluated and was clean. On a careful examination no other polyps were identified. Retroflexion in the rectum was performed. No lesions were seen. After decompressing the colon the endoscope was withdrawn. Digital rectal examination revealed external skin tags. There were no additional findings and there were no apparent complications. Assessment and plan: A single 7 mm sessile polyp was cold snare excised from the mid ascending colon. She had external skin tags. The pathology will be reviewed. Follow-up colonoscopy is anticipated within 5 years. Please refer to the postprocedural orders for observation status, diet, and medication orders Digitally Signed by NESS WRAY MD on 05/22/2024 12:39 PM [facility]07-08-2024 Anesthesiology Consult note Patient: VI VELA Age: 43 years Sex: Female : 1980 Associated Diagnoses: None Author: EMMA AGUIRRE AGRICULTURAL CONSULTANT-RAD TECH Assessment Postanesthesia assessment Vitals: Vital signs from flowsheet : Vital Signs 05/22/2024 12:35 EDT Heart Rate Monitored 84 bpm bpm Respiratory Rate - Anes 20 br/min br/min 05/22/2024 12:30 EDT Heart Rate Monitored 76 bpm bpm Respiratory Rate - Anes 22 br/min br/min Systolic Blood Pressure Non-Invasive 108 mmHg mmHg Diastolic Blood Pressure Non-Invasive 69 mmHg mmHg 05/22/2024 12:25 EDT Heart Rate Monitored 76 bpm bpm Respiratory Rate - Anes 18 br/min br/min Systolic Blood Pressure Non-Invasive 104 mmHg mmHg Diastolic Blood Pressure Non-Invasive 67 mmHg mmHg 05/22/2024 12:20 EDT Heart Rate Monitored 81 bpm bpm Respiratory Rate - Anes 19 br/min br/min Systolic Blood Pressure Non-Invasive 106 mmHg mmHg Diastolic Blood Pressure Non-Invasive 64 mmHg mmHg 05/22/2024 12:15 EDT Heart Rate Monitored 81 bpm bpm Respiratory Rate - Anes 10 br/min br/min Systolic Blood Pressure Non-Invasive 104 mmHg mmHg Diastolic Blood Pressure Non-Invasive 70 mmHg mmHg 05/22/2024 12:11 EDT Systolic Blood Pressure Non-Invasive 135 mmHg mmHg Diastolic Blood Pressure Non-Invasive 80 mmHg mmHg 05/22/2024 11:44 EDT Temperature Temporal Artery 37.1 DegC Apical Heart Rate 82 bpm Respiratory Rate 18 br/min Systolic Blood Pressure Non-Invasive 119 mmHg Diastolic Blood Pressure Non-Invasive 76 mmHg Blood Pressure Method Automatic Blood Pressure Location Left arm Blood Pressure Cuff Size Large . Mental status: alert & oriented x 4. Respiratory function: lungs are clear to auscultation. Respiratory support: none. CV function: Normal rate. Cardiovascular support: none. Pain. Nausea status: see nursing documentation of medications. Postoperative hydration status: within normal limits. Digitally Signed by EMMA AGUIRRE on 05/22/2024 12:36 PM [facility]07-08-2024 Anesthesiology Consult note Patient: VI VELA Age: 43 years Sex: Female : 1980 Associated Diagnoses: None Author: EMMA AGUIRRE Preoperative Information Time of last food or liquid consumption: 05/21/2024 13:00:00 Anesthesia history Patient's history: negative. Family's history: negative. Review of Systems Ear/Nose/Mouth/Throat: Negative except as documented in history of present illness. Respiratory: Negative except as documented in history of present illness. Cardiovascular: Negative except as documented in history of present illness. Gastrointestinal: Negative except as documented in history of present illness. Genitourinary: Negative except as documented in history of present illness. Endocrine: Negative except as documented in history of present illness. Musculoskeletal: Negative except as documented in history of present illness. Integumentary: Negative except as documented in history of present illness. Neurologic: Negative except as documented in history of present illness. Health Status Allergies: Allergic Reactions (Selected) Severity Not Documented Morphine- Rash., Allergies (1) ActiveSeverityReaction morphineRash Current medications: (Selected) Inpatient Medications Ordered Lactated Ringers Infusion 1,000 mL: 20 mL/hr, Intravenous Prescriptions Prescribed buPROPion 150 mg/24 hours (XL) oral tablet, extended release: 150 mg, 1 tab(s), Oral, q24h, for 90 day(s), 90 tab(s), 1 Refill(s) Documented Medications Documented CeleXA 40 mg oral tablet: 40 mg, 1 tab(s), Oral, Daily, 0 Refill(s) ethinyl estradiol-etonogestrel 0.015 mg-0.120 mg/24 hours vaginal rin EA, Vaginal, q4wk, Inserta new ring on day 1 and use for 3 weeks, remove for 1 week, then repeat cycle, 3 EA, 0 Refill(s), Medications (1) Active Scheduled: (0) Continuous: (1) Lactated Ringers Infusion 1,000 mL 1,000 mL, Intravenous, 20 mL/hr PRN: (0) Problem list: No problem items selected or recorded., No qualifying data available Histories Past Medical History: No active or resolved past medical history items have been selected or recorded. Family History: Cancer Grandparent Hypertension Grandparent Heart disease Father Grandparent Osteoporosis Mother Alcohol abuse Sister Grandparent Heart attack Grandparent Diabetes Grandparent Colon cancer Grandparent Procedure history: Tubal ligation ([id number]). Social History: Social & Psychosocial Habits Alcohol 04/26/2024 Use: Current Frequency: 1-2 times per month Substance Abuse 04/26/2024 Use: Never Tobacco 04/26/2024 Tobacco Use: Never (less than 100 in l Nutrition/Health 04/26/2024 Caffeine intake amount: 1-2 cups daily Physical Examination Vital Signs 05/22/2024 11:44 EDT Temperature Temporal Artery 37.1 DegC Apical Heart Rate 82 bpm Respiratory Rate 18 br/min Systolic Blood Pressure Non-Invasive 119 mmHg Diastolic Blood Pressure Non-Invasive 76 mmHg Blood Pressure Method Automatic Blood Pressure Location Left arm Blood Pressure Cuff Size Large Vital Signs (last 24 hrs) Last Charted Temp Qegjsqzu20.1 DegC (MAY 22 11:44) Heart Rate Lgcfqu25 bpm (MAY 22 11:44) IOL148 mmHg (MAY 22 11:44) DBP76 mmHg (MAY 22 11:44) BMI36.96 (MAY 22 11:44) Measurements from flowsheet : Measurements 05/22/2024 11:44 EDT Height 163 cm Admission Weight 98.2 kg Weight Method Stated [place] Body Weight 55.10 kg BSA Admission 2.03 Body Mass Index 36.96 kg/m2 Pain assessment: Pain Assessment 05/22/2024 11:44 EDT Primary Pain Intensity 0 Pain Scale Type 0-10 Pain scale . General: Alert and oriented. Airway: Normal neck range of motion. Mallampati classification: II (soft palate, fauces, uvula visible). Head: Normocephalic. Dentition Evaluation: Intact, Own teeth. Neck: Full range of motion. Respiratory: Lungs are clear to auscultation. Cardiovascular: Normal rate. Heart Sounds: Normal. Gastrointestinal: Soft. Musculoskeletal Normal range of motion. Integumentary: Intact, Warm, Dry. Neurologic: Alert, Oriented. Review / Management Results review: No qualifying data available , Lab results 05/22/2024 12:02 EDT SN - Proc - Anesthesia Type MAC SN - Proc - EBL 0 mL SN - Proc - Actual Procedure COLONOSCOPY 05/22/2024 12:02 EDT SN - PP - Body Position Lateral Right Side-up Standard Intra-op 05/22/2024 12:01 EDT SN - GCD - Post-operative Diagnosis SCREENING SN - GCD - Case Level OPD Level 3 05/22/2024 12:01 EDT SN - CAt - Case Attendee SN - CAt - Case Attendee SN - CAt - Case Attendee SN - CAt - Case Attendee SN - CAt - Case Attendee SN - CAt - Case Attendee SN - CAt - Role Performed RAD TECH SN - CAt - Role Performed Bakery Deliverer 1 SN - CAt - Role Performed Derrick Engineer 05/22/2024 12:01 EDT SN - CAt - Case Attendee SN - CAt - Case Attendee SN - CAt - Role Performed Primary Surgeon 05/22/2024 11:59 EDT Lactated Ringers Injection Begin Bag 1,000 mL mL 05/22/2024 11:58 EDT Hand Right 05/22/2024 22 gauge Peripheral IV Activity: Insert new site Peripheral IV Site Condition: No complications Peripheral IV Number of Attempts: 1 05/22/2024 11:46 EDT IV Present Present Allergies Yes Anesthesia Extension Set Applied Yes Banquet Pilot On Yes Colon Prep Results Excellent Consent Form Signed Yes Patient Dressed In Hospital gown History & Physical Update On Chart Yes History & Physical On Chart Yes Bowel Prep Completed Yes Belongings At Bedside Glasses, Purse, Shirt, Shoes, T-shirt, Undergarments NPO Status Maintained Allergy Band on and Verified Yes Patient ID Band on and Verified Yes Implants Verified Yes Pacemaker/AICD Verified Yes Site Verified by Patient/Family Yes Anesthesia Consent Signed Yes Last Fluid Intake 05/22/2024 8:30 Last Food Intake 05/20/2024 22:00 05/22/2024 11:44 EDT Designated Person #1 We May Share BANDAR DANIELS [phone] Designated Person #1 Relationship Spouse Height 163 cm Admission Weight 98.2 kg Weight Method Stated [place] Body Weight 55.10 kg BSA Admission 2.03 Body Mass Index 36.96 kg/m2 Temperature Temporal Artery 37.1 DegC Apical Heart Rate 82 bpm Respiratory Rate 18 br/min Systolic Blood Pressure Non-Invasive 119 mmHg Diastolic Blood Pressure Non-Invasive 76 mmHg Blood Pressure Method Automatic Blood Pressure Location Left arm Blood Pressure Cuff Size Large Primary Pain Intensity 0 Pain Scale Type 0-10 Pain scale Heart Rhythm Regular Oxygen Therapy Room air Oxygen Saturation 97 % Status No, per patient Sensory Deficits None Infectious Disease Symptoms Patient states no symptoms Infectious Disease Recent Exposure No Alcohol and Drug Use No Employee of Institutional Living No Health Care Employee No History of Exposure to TB No History of Positive Chest X-Ray for TB No History of Positive TB Skin Test No Homeless No Known Immunosuppression No Recent Immigrant No Resident of Institutional Living No Bloody Sputum No Fatigue No Fever No Loss of Appetite No Night Sweats No Persistent Cough > 3 Weeks No Weight Loss No Arrival Mode Ambulatory Glasses Yes Accompanied By On Arrival Family GI Prep Polyethylene Glycol GI Prep Completed Yes GI Prep Results Yellow, Clear Barriers to Learning None evident Teaching Method Explanation, Printed materials Preferred Spoken Language Citizen Of [place] Preferred Written Language Citizen [place] Information Given by Patient Patient's Current Physicians DOLORES MANN DFP Discharge To, Anticipated Home independently Activity Status ADL Awake Standard Safety ID band on, Allergy Band on, Call device within reach, Bed in low position, Wheels locked, Upper/Half-Length side-rails up, Safety level maintained Prev Test Positive/Diagnosis w/COVID-19 Yes Previous COVID-19 Positive Date JUL 2022 Current Quarantine/Isolated any Illness No Any Contact with Sick Animals/Birds No Traveled Anywhere in Last 30 Days Yes Travel Where Within [facility] State(s) [place] No Personal Devices, Patient Valuables Glasses Admission Note-Nursing Procedure/Therapy Intake . Assessment and Plan [place] [employer] Anesthesiologists (ASA) physical status classification: Class I. Anesthetic Preoperative Plan Premedication: intravenous. Anesthetic technique: MAC. Induction: intravenously. Maintenance airway: Mask. Risks discussed: nausea, vomiting, headache, sore throat, dental injury, hypotension, allergic reaction, serious complications. Informed consent: signed by patient. Digitally Signed by EMMA AGUIRRE on 05/22/2024 12:06 PM [facility]07-08-2024 Note Date of Service 05/22/2024 Chief Complaint screening, high risk History of Present Illness This is a preprocedural/presurgical H&P. The patient was originally evaluated by ni Hernandez PA. Please refer to her note also. I independently and personally performed a history and physical examination with this patient and repeated the bass components of the exam/history. I have reviewed her note. The patient was scheduled for endoscopy based on that visit and was evaluated by me prior to it. Voice recognition software was utilized for this document and may contain recognition errors inherent in that process. Vi states that her paternal grandmother had colon cancer and from this. Due to this, her father began getting colonoscopies and was diagnosed with precancerous polyps around the age of 59 or 60. Patient reports no GI symptoms including nausea, vomiting, change of appetite, weightloss, hematemesis, dysphagia, odynophagia, abdominal pain, constipation, diarrhea, bright red bloodper rectum or melena. Patient reports having regular bowel movement once daily with normal caliber and normal appearing stool. Physical Exam Vitals and Measurements T: 37.1 C (Temporal Artery) HR: 82 (Apical) RR: 18 BP: 119/76 SpO2: 97% HT: 163 cm WT: 98.2 kg BMI:36.96 Weight Dosing Weight: 98.2 kg (05/22/24) General appearance: The patient is alert and oriented and in no apparent distress. Vital signs werereviewed. HEENT: Hearing is appropriate. Sclera are clear and nonicteric. Nares normal. Oral mucosa is normal. Neck is free of lymphadenopathy. The trachea is midline. Chest: No supraclavicular lymphadenopathy. Lungs: Lungs are clear bilaterally. No rales or wheezing. Cardiac: No murmurs rubs or gallops heard. Abdomen: Bowel sounds are present. The abdomen is soft, nontender. No palpable masses. No organomegaly. No inguinal lymphadenopathy. Rectal examination is deferred. Extremities: No cyanosis or clubbing. Neurology: No gross focal neurologic deficits. Integument: No telangiectasias or petechiae are seen. Lymphatic: No supraclavicular cervical inguinal adenopathy found Psychiatric examination: The patient is alert and oriented. Cognition seems appropriate. Recent andremote memory intact. Affect is appropriate. Lab Results No 36 Hour Lab Data Assessment/Plan Orders: Lactated Ringers Infusion 1,000 mL, 1000 mL, Intravenous Communication Order (scheduled), 05/22/24 11:57:00 EDT, Once, 05/22/24 11:57:00 EDT, Urine test or waiver for women of child bearing age Communication Order (scheduled), 05/22/24 11:57:00 EDT, Once, 05/22/24 11:57:00 EDT, Fasting Blood Sugar prior to procedur if patient is diabetic Communication Order (scheduled), 05/22/24 11:57:00 EDT, Once, 05/22/24 11:57:00 EDT, Pathology Tissue Request Consult to Anesthesia, 05/22/24 11:57:00 EDT, *Other (specify in special instructions), Provide Anesthesia during Procedure Sign Consent, 05/22/24 11:57:00 EDT, Once, For Colonoscopy The patient is high risk screening for colon cancer. She has a family history of colorectal neoplasia. Consent conference held. Procedure/Surgical History Tubal ligation Medications Home Medications (3) Active buPROPion 150 mg/24 hours (XL) oral tablet, extended release 150 mg = 1 tab(s), Oral, q24h CeleXA 40 mg oral tablet 40 mg = 1 tab(s), Oral, Daily ethinyl estradiol-etonogestrel 0.015 mg-0.120 mg/24 hours vaginal ring 1 EA, Vaginal, q4wk Allergies morphine Rash Social History Alcohol Use: Current. Frequency: 1-2 times per month., 01/03/2024 Nutrition/Health Caffeine intake amount: 1-2 cups daily., 01/03/2024 Substance Abuse Use: Never., 01/03/2024 Tobacco Nicotine Use: Never (less than 100 in lifetime)., 01/03/2024 Family History Alcohol abuse: Sister and Grandparent. Cancer: Grandparent. Colon cancer: Grandparent. Diabetes: Grandparent. Heart attack: Grandparent. Heart disease: Father and Grandparent. Hypertension: Grandparent. Osteoporosis: Mother. Health Status Family Member(s) Immunizations No qualifying data available. Code Status No qualifying data available. Digitally Signed by NESS WRAY MD on 05/22/2024 12:10 PM [facility]06-26-2024 Telephone encounter Note* Telephone Encounter - Lisha Castaneda APRN.CUTTING TOOL SHARPENER - 05/10/2024 12:49 PM EDT Mammo and ultrasound was ordered for axillary pain but I do not see anything specified in the ultrasound report about axillary images, just breast ultrasound at 1-2 o' clock position. Can radiology be called to confirm that axillary images were obtained/normal? Lisha Castaneda APRN.CUTTING TOOL SHARPENER [facility]06-26-2024 NoteIMPRESSION: INCOMPLETE: NEEDS ADDITIONAL IMAGING EVALUATION There is no abnormality seen in the left breast to correspond with the pain, however, ultrasound is recommended. Alis mendes/rose:05/10/2024 11:37:59 Tanning Drum Operator(s): Kristina Ralph [facility] Mammogram BI-RADS: 0 Incomplete: needs additional imaging evaluation Multiple national specialty organizations have released breast cancer screening guidelines for women at average risk for developing breast cancer - guidelines that are based on both evidence and opinion, yet differ on when to start and how often to screen for breast cancer. With representation from Breast Imaging, Internal Medicine, Women's Health, Family Medicine, and Medical/Surgical Oncology, the [facility] has carefully reviewed the data and reached the following consensus: 1) All women should engage in shared decision-making with their providers to decide when to start and how often to screen; 2) All women should have the opportunity to start screening mammography at age 40; 3) For women ages 45-55, we recommend annual screening mammograms; 4) For women ages 55 and over, we support both the transition from an annual to a biennial interval if this aligns more with patient's values and preferences, or continuation with annual screening; 5) All women should discuss with their providers when to stop screening mammograms. Operations Engineer: Rose Transcribe Date/Time: May 10 2024 11:08A Dictated by: ALIS MARIE MD This examination was interpreted and the report reviewed and electronically signed by: ALIS MARIE MD on May 10 2024 11:37AM EST DIVISION OF [id number] History of Present illness Narrative* Rosa Mata RDND - 05/10/2024 11:30 AM EDT Radiology Service Progress Note PATIENT NAME: Vi Vela DATE OF SERVICE: May 10, 2024 TIME: 4:21 PM PATIENT IDENTITY VERIFICATION COMPLETED USING TWO (2) IDENTIFIERS: Name and Date of confirmedby patient verbally. FALL SCREENING: Has the patient had 2 falls in the last year or 1 fall with injury or currently using an Ambulatory Assistive Device (Walker, Cane, Wheelchair, Crutches, etc.)? No PATIENT GENDER DATA: Female. status: : No status: NO. PATIENT RELEVANT IMPLANT DATA REVIEWED: Not Applicable PATIENT PRESENTS WITH AN IMPLANTABLE OR ATTACHED WASHERETTE MACHINE OPERATOR: No RADIOLOGY DEPARTMENT: Ultrasound PERIPHERAL IV DATA: Not applicable SIGNED BY: Rosa Mata RDMS May 10, 2024 4:21 PM documented in this encounterK[facility]06-[facility]-2024 NoteHNO ID: [id number] Author: ROSA MATA RDMS Service: ? Author Type: Pipe Installer Type: Progress Notes Filed: 05/10/2024 16:21 Note Text: Radiology Service Progress Note PATIENT NAME: Vi Vela DATE OF SERVICE: May 10, 2024 TIME: 4:21 PM PATIENT IDENTITY VERIFICATION COMPLETED USING TWO (2) IDENTIFIERS: Name and Date of confirmed by patient verbally. FALL SCREENING: Has the patient had 2 falls in the last year or 1 fall with injury or currently using an Ambulatory Assistive Device (Walker, Cane, Wheelchair, Crutches, etc.)? No PATIENT GENDER DATA: Female. status: : No status: NO. PATIENT RELEVANT IMPLANT DATA REVIEWED: Not Applicable PATIENT PRESENTS WITH AN IMPLANTABLE OR ATTACHED WASHERETTE MACHINE OPERATOR: No RADIOLOGY DEPARTMENT: Ultrasound PERIPHERAL IV DATA: Not applicable SIGNED BY: Rosa Mata RDMS May 10, 2024 4:21 [facility]06-26-2024 History of Present illness Narrative* Meme Coles, RT(R) - 05/10/2024 11:00 AM EDT Radiology Service Progress Note PATIENT NAME: Vi Vela DATE OF SERVICE: May 10, 2024 TIME: 10:46 AM PATIENT IDENTITY VERIFICATION COMPLETED USING TWO (2) IDENTIFIERS: Name and Date of confirmedby patient verbally. FALL SCREENING: Has the patient had 2 falls in the last year or 1 fall with injury or currently using an Ambulatory Assistive Device (Walker, Cane, Wheelchair, Crutches, etc.)? No PATIENT GENDER DATA: Female. status: : No status: NO. PATIENT RELEVANT IMPLANT DATA REVIEWED: Not Applicable PATIENT PRESENTS WITH AN IMPLANTABLE OR ATTACHED WASHERETTE MACHINE OPERATOR: No RADIOLOGY DEPARTMENT: Mammography PERIPHERAL IV DATA: Not applicable SIGNED BY: RT Loree(R) May 10, 2024 10:46 AM documented in this encounterK[facility]06-[facility]-2024 NoteHNO ID: [id number] Author: MEME COLES RT(R) Service: ? Author Type: Technologist Type: Progress Notes Filed: 05/10/2024 10:47 Note Text: Radiology Service Progress Note PATIENT NAME: Vi Vela DATE OF SERVICE: May 10, 2024 TIME: 10:46 AM PATIENT IDENTITY VERIFICATION COMPLETED USING TWO (2) IDENTIFIERS: Name and Date of confirmed by patient verbally. FALL SCREENING: Has the patient had 2 falls in the last year or 1 fall with injury or currently using an Ambulatory Assistive Device (Walker, Cane, Wheelchair, Crutches, etc.)? No PATIENT GENDER DATA: Female. status: : No status: NO. PATIENT RELEVANT IMPLANT DATA REVIEWED: Not Applicable PATIENT PRESENTS WITH AN IMPLANTABLE OR ATTACHED WASHERETTE MACHINE OPERATOR: No RADIOLOGY DEPARTMENT: Mammography PERIPHERAL IV DATA: Not applicable SIGNED BY: RT Loree(R) May 10, 2024 10:46 [facility]06-07-2024 Telephone encounter Note* Telephone Encounter - Yue Ott RN - 04/21/2024 11:33 AM EDT Last annual with 04/14/24. Requested Prescriptions Pending Prescriptions Disp Refills citalopram (CELEXA) 40 mg tablet 90 tablet 4 Sig: Take 1 tablet by mouth once daily. Yue Ott RN [facility]06-07-2024 Miscellaneous Notes* Telephone Encounter - Yue Ott RN - 04/21/2024 11:33 AM EDT Last annual with 04/14/24. Requested Prescriptions Pending Prescriptions Disp Refills citalopram (CELEXA) 40 mg tablet 90 tablet 4 Sig: Take 1 tablet by mouth once daily. Yue Ott RN documented in this encounterKettering [facility]05-31-2024 Instructions* Patient Instructions* Lisha Castaneda APRN.[facility] - 04/14/2024 2:52 PM EDT A 3-dose schedule is recommended for people who get the first dose on or after their 15th birthday,and for people with certain immunocompromising conditions. In a 3-dose series, the second dose should be given 1-2 months after the first dose, and the third dose should be given 6 months after the first dose (0, 1-2, 6-month schedule). The minimum intervals are 4 weeks between the first and second dose, 12 weeks between the second and third doses, and 5 months between the first and third doses. If a vaccine dose is administered after a shorter interval, it should be re-administered after another minimum interval has elapsed sincethe most recent dose. If the vaccination schedule is interrupted, vaccine doses do not need to be repeated (no maximum interval). Salma Lai does pelvic floor therapy at [place]. [email or web address]#PhysicalTherapy [email or web address] - [facility] [email or web address] [email or web address]/ [facility] [employer] [facility] [email or web address] [facility] [email or web address] documented in this encounterKettering [facility]05-31-2024 NoteHNO ID: [id number] Author: LISHA CASTANEDA APRN.TIM Service: ? Author Type: Nurse Practitioner Type: Progress Notes Filed: 04/14/2024 15:05 Note Text: Reeling Operator offered: Patient declinesJosee Lebron is a 43 year old who presents for an annual gynecologic exam with complaints of stress incontinence. Menses: cycles every 30 days and 4 days of flow. 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 No bloating, early satiety, indigestion, or increased flatulence. Bladder: No dysuria, gross hematuria, urinary frequency, urinary urgency + stress incontinence Breast: No breast lumps, nipple d/c, overlying skin changes, redness or skin retraction. + pain to left sided lymph node Allergies and current medication updated:Yes EXAM: BP 110/68 Ht 5' 4 (1.63m) Wt 153 lb (69.4kg) LMP 03/27/2024 BMI 26.25 kg/(m2). GENERAL: pleasant, female in no apparent [...] external genitalia normal, normal Bartholin's glands, urethra, Raeville's glands, no vulvar lesions, no cervical lesions, + 1st degree cystocele, physiologic discharge present, normal appearing perineal body and perianal region BIMANUAL: uterus normal size, shape and consistency, no adnexal masses, and non-tender RECTOVAGINAL: deferred. NEURO: alert and oriented x3,exam grossly non-focal EXTREMITIES: normal ASSESSMENT/PLAN: 1) Health maintenance: Pap/HPV up to date. Nutrition, exercise and routine health maintenance exams reviewed. Lipids/glucose: followed by PCP HPV vaccine: interested, literature given 2) Contraception: Annovera and tubal sterilization. Contraceptive options reviewed and information provided. 3) STD screening: Declined STD check. 4) Follow up one year or sooner as needed Urinary, incontinence, stress female - ICD9: 625.6, ICD10: N39.3 - 1st degree cystocele noted - Discussed pelvic floor therapy, resources provided Axillary pain, left - ICD9: 729.5, ICD10: M79.622 - Diagnostic imaging ordered - [facility] (more content not included)...[facility] 04-14-2024 History of Present illness Narrative* Lisha Castaneda, CARLOS.CUTTING TOOL SHARPENER - 04/14/2024 2:41 PM EDT Reeling Operator offered: Patient declines. Vi is a 43 year old who presents for an annual gynecologic exam with complaints of stress incontinence. Menses: cycles every 30 days and 4 days of flow. 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 No bloating, early satiety, indigestion, or increased flatulence. Bladder: No dysuria, gross hematuria, urinary frequency, urinary urgency + stress incontinence Breast: No breast lumps, nipple d/c, overlying skin changes, redness or skin retraction. + pain to left sided lymph node Allergies and current medication updated:Yes EXAM: BP 110/68 Ht 5' 4 (1.63m) Wt 153 lb (69.4kg) LMP 03/27/2024 BMI 26.25 kg/(m^2). GENERAL: pleasant, female in no apparent [...] external genitalia normal, normal Bartholin's glands, urethra, Raeville's glands, no vulvar lesions, no cervical lesions, + 1st degree cystocele, physiologic discharge present, normal appearing perineal body and perianal region BIMANUAL: uterus normal size, shape and consistency, no adnexal masses, and non-tender RECTOVAGINAL: deferred. NEURO: alert and oriented x3,exam grossly non-focal EXTREMITIES: normal ASSESSMENT/PLAN: 1) Health maintenance: Pap/HPV up to date. Nutrition, exercise and routine health maintenance exams reviewed. Lipids/glucose: followed by PCP HPV vaccine: interested, literature given 2) Contraception: Annovera and tubal sterilization. Contraceptive options reviewed and information provided. 3) STD screening: Declined STD check. 4) Follow up one year or sooner as needed Urinary, incontinence, stress female - ICD9: 625.6, ICD10: N39.3 - 1st degree cystocele noted - Discussed pelvic floor therapy, resources provided Axillary pain, left - ICD9: 729.5, ICD10: M79.622 - Diagnostic imaging ordered - [facility] - US BREAST LTD LEFT Discussed chronic pelvic pain clinic available if endometriosis worsens. Lisha Castaneda APRN.CUTTING TOOL SHARPENER documented in this encounterK[facility]05-[facility] Telephone encounter Note * Telephone Encounter - Yue Ott RN - 03/24/2024 1:05 PM EDT Last annual 02/2023. QR Pharmat message sent to schedule appt. Requested Prescriptions Pending Prescriptions Disp Refills segesterone ac-ethin estradiol (ANNOVERA) 0.15-0.013 mg/24 hour vaginal ring 1 Each 0 Sig: Use 1 Each vaginally as directed. Insert 1 ring vaginally. Following insertion, ring should remain in place for 24 continuous days, then removed for 4 days Yue Ott RN [facility]05-10-2024 Miscellaneous Notes* Telephone Encounter - Yue Ott RN - 03/24/2024 1:05 PM EDT Last annual 02/2023. QR Pharmat message sent to schedule appt. Requested Prescriptions Pending Prescriptions Disp Refills segesterone ac-ethin estradiol (ANNOVERA) 0.15-0.013 mg/24 hour vaginal ring 1 Each 0 Sig: Use 1 Each vaginally as directed. Insert 1 ring vaginally. Following insertion, ring should remain in place for 24 continuous days, then removed for 4 days Yue Ott RN documented in this encounterKettering [facility]04-04-2024 Discharge summary Author Magno Gross [facility] February 17, 2024 8:06am Note Date/Time February 17, 2024 8:06 am [facility] Physical Therapy [facility] [place] [address] / REHABILITATION SERVICES DISCHARGE SUMMARY MR#: [id number] Acct: [id number] Name: VI VELA Rep #: [id number] : 1980 43 From: Magno Hogan Referring Dr.: LARA Baires Status: REG R Insurance: [facility] [employer]URANCE Patient Information Patient Information: VI VELA was seen in my office for initial evaluation on 11/05/23. The following Plan of Care was established for this patient: POC Established Initial Frequency: 2x /Week Initial Duration: 6 Weeks Anticipated Interventions Patient/Client Instruction: Educate patient on: Condition, Plan of Care, Risk Factors and Benefits of Fitness Program For the Purpose of:: To facilitate caregiver knowledge, To improve self management, To prevent re-injury, To improve ability to perform tasks related to lifemanagement and To improve tolerance to ADL's Therapeutic Exercise to Include: Strength training, Power training, Body mechanics, Postural training, Flexibilty training, Passive ROM and Active ROM For the Purpose of:: To decrease pain, To increase ROM, To improve nutrient delivery to tissue, To increase oxygenation perfusion, To improve muscle performance and motor function, To improve health of tissue, To decrease soft tissue restriction, To increase flexibility/ROM and To improve endurance Last Seen Last Seen: This patient was last seen in our office 12/13/23. Pertinent comments regardingtheir Physical therapy will appear below: Pt. was seen in PT for her low back pain. Pt. was not having much progress with aquatic PT. She was going to try a SI belt and trial some exercises on her own. She was to trial PT on her own. She has not been back to PT in several months and will be DC from PT at this point in time. At this point I will be discontinuing this patient from physical therapy. I would be happy to see this patient again in the future if found appropriate by the physician. Thank you! Magno Gross, DPT Balance/Gait/Functional tests Balance/Special Test Scores Oswestry Low Back Score: 13 <Electronically signed by Magno Gross DPT> 02/17/24 0806 CC: LARA Baires; ALDO Velarde Podlogar ~ CLS Signed [facility] Work Phone: 1(864) 455-792811-27-2023 History of Present illness Narrative* Sahra Carlson APRN.CUTTING TOOL SHARPENER - 10/11/2023 8:36 AM EST This note was created using [employer] websiteriter. Subjective Vi Vela is a 43 year old female. 43 year old female with PMH anxiety, and depression presents for illness. Acute onset 2 days ago +sore throat +swollen glands +body aches Denies fever or chills Denies N/V/D Denies cough or congestion. Denies SOB or dyspnea Denies abdominal pain. +ill contacts, citing her children. The history is provided by the patient. No emergency room physician was used. URI There is no chest tightness, cough, difficulty breathing, frequent throat clearing, hemoptysis, hoarse voice, shortness of breath, sputum production or wheezing. This is a new problem. The current episode started in the past 7 days. The problem occurs constantly. The problem has been unchanged. Thecough is non- productive. Associated symptoms include a sore throat. Pertinent [...] daily DO NOT CRUSH, CHEW, AND/OR DIVIDE Cbaxpwcy-[id number] tab Take 1 tablet by mouth. meloxicam [...] A/B & RSV NAAT, ROUTINE Sahra Carlson APRN.CUTTING TOOL SHARPENER documented in this encounterKettering [facility]06-30-2023 Discharge summary Author Jorge Lopez [facility] May 14, 2023 7:47pm Note Date/Time May 14, 2023 6:31 pm [facility] Medical Records Department [address] [place] [address] Emergency Department Summary 05/14/23 MR#: [id number] Acct: [id number] Name: VI VELA Rep #:[id number] : 1980 42 From: Jorge Lopez MD PCP: Prachi Hatch TEXTILE MACHINERY INSTRUCTOR-C Status:REG E R Location: ED HPI History of Present Illness Chief Complaint: Neuro S/Sx Detail of Chief Complaint: Right-sided headache. Informant: patient Onset/Context/Timing Onset: Today, Yesterday and Hours Context: Gradual Onset Timing: Continuous Current Severity: Moderate Maximum Severity: Moderate Narrative Narrative: 42-year-old female history depression anxiety. States that around 4:00 yesterday she started getting a moderate to severe headache behind her right eye. It is gradual in onset. Not thunderclap. Associated nausea no vomiting. No trauma to her head. No fever. She is on no blood thinners. There is no family history of intracranial bleeds or headaches. She actually had a brain MRI 2 years ago which was unremarkable. She typically does not get headaches. Prior similar symptoms: No Recent Illness/Hospitalization: No PFSH PFSH Medical History Alcohol use Anxiety Back pain Former smoker History of herniated intervertebral disc Injury of back Stomach ulcer Wears contact lenses Wears glasses Home Medications vits,calcium no.78-iron fumarate-folic acid 29 mg-1 mg tablet 1 tab PO DAILY 05/13/16 [History Last Taken 10/19/18 22:00] ibuprofen 600 mg tablet 600 mg PO Q6H PRN PRN Pain Score 1-3 #30 tabs 12/29/20 [Rx Last Taken Unknown] cholecalciferol (vitamin D3) 25 mcg (1,000 unit) chewable tablet (Vitamin D3) 25mcg PO DAILY 04/24/21 [History Last Taken Unknown] citalopram 40 mg tablet 40 mg PO DAILY 04/24/21 [History Last Taken Unknown] Allergy/AdvReac Type Severity Reaction Status Date / Time morphine AdvReac Itching Verified 01/11/23 09:06 Family History Other Alcoholism CVA (cerebral vascular accident) Heart disease Osteoporosis Thyroid disorder Surgical History History of delivery History of cholecystectomy History of foot surgery History of tonsillectomy Hx of laparoscopy Social History Smoking Status: Former smoker alcohol intake: current alcohol intake frequency: holidays/special occasions only substance use type: does not use what type of physical activity do you participate in: yoga frequency: 3-4 times per week ROS ROS ED ROS Narrative Headache with nausea. Review of Systems ROS Unobtainable: Denies due to encephalopathy Constitutional Constitutional ED: Denies chills or fever(s) Eyes Eyes: Denies blurry vision ENT ENT ED: Denies ear pain Cardiovascular Cardiovascular: Denies chest pain Respiratory/Chest Respiratory/Chest: Denies cough or dyspnea Gastrointestinal Gastrointestinal: Denies abdominal pain Genitourinary Genitourinary ED: Denies dysuria or hematuria Musculoskeletal Musculoskeletal: Denies arthralgias Integumentary Denies abscess or Abrasions Neurologic Neurologic: Reports headache(s) Psychiatric Psychiatric: Denies anxiety or depression Endocrine Endocrinology: Denies cold intolerance Hematologic/Lymphatic Hematologic/Lymphatic: Reports none Allergic/Immunologic Allergic/Immunologic ED: Denies mouth swelling, tongue swelling or urticaria EXAM Physical Exam Narrative Exam Narrative: 42-year-old female no acute distress. Vital signs stable afebrile. HEENT exam pupils round reactive light. Extra motions are intact. Pupils about 2 mm bilaterally. No facial droop. She can open and close either eye and eyelids without any difficulty. There is no droop. Extraocular motions are intact. Neck nontender no meningismus. No lymphadenopathy. Lungs clear. Heart regularrhythm no murmur. Abdomen soft nontender. Moving all 4 extremities. Normal bellows charger assembler strength. Normal dorsi plantarflexion. Neurologic exam normal. Awake alert. Answering questions. No facial droop. Normal speech. Fingertip to nose and [id number] within normal limits. No drift. Normal bellows charger assembler strength. Normal dorsi plantarflexion. NIH is 0. Const Vital Signs: 05/14/23 17:39 Temperature 98.3 F Temperature Source Oral Pulse Rate 85 Respiratory Rate 18 Blood Pressure 122/76 H Blood Pressure Mean 91 Pulse Ox 99 Oxygen Delivery Method Room Air Positive well nourished and well developed; Negative for obese, cachectic, contractures or unkempt General Appearance ED: well developed and NAD; Negative for unkempt, cachectic, contractures, cyanotic, diaphoretic or pallor Nutritional Appearance: Negative for cachectic or obese HEENT Reports moist mucous membranes; Denies dry mucous membranes Negative for trauma or tenderness Mouth ED: No dry mucous membranes Mouth: No dry mucous membranes Eyes PERRL and EOMs intact bilaterally General Eye ED: Negative for pale conjunctiva or scleral icterus Neck no lymphadenopathy, supple and no JVD General: Negative for tenderness Lymph Lymphatic: Negative for other Chest Wall inspection of chest normal and palpation of chest normal Chest: Negative for other Resp normal respiratory effort and clear to auscultation bilaterally Effort and Inspection: Negative for retractions Auscultation: Negative for rales, rhonchi or wheezes Cardio regular rate, regular rhythm, S1 normal heart sound, S2 normal heart sound and no murmurs Rhythm: Negative for abnormal rhythm GI normal to inspection, nondistended, normoactive bowel sounds, non-tender, non-distended and no masses Inspection: Negative for abdominal distention Auscultation: normoactive bowel sounds Palpation: soft; Negative for tender or guarding Bladder / Kidney Exam: No other Back/Spine no CVA tenderness General Back: Negative for CVA tenderness Cervical Spine: Negative for cervical spine tenderness Thoracic Spine / Upper Back: Negative for thoracic spinal tenderness Lumbar Spine / Lower Back: Negative for lumbar spinal tenderness Extremity normal to inspection General Extremety ED: Negative for edema or tenderness General Extremity: Negative for edema Neuro oriented x3, CN's II-XII intact bilaterally and no sensory deficits noted Neuro Narrative: Normal neurologic exam. NIH 0. Sensorium / Orientation: alert; Negative for orientation impaired, lethargic or stuporous Motor Exam: strength 5/5 throughout Psych mental status grossly normal Appearance: Negative for unkempt Attitude: No agitated Mood & Affect: Negative for depressed, anxious or tearful Skin no rashes or lesions noted, no wounds and skin turgor normal General Skin Exam: elasticity normal; Negative for jaundice or pallor Lesions: No lesion noted Rashes: No rashes noted Trauma: Negative for abrasion Wounds: Negative for wounds noted MDM MDM MDM Narrative Medical decision making narrative: 42-year-old with severe headache that sounds like a migraine behind her right eye. No history of headaches. No family history of headaches or intracranial bleeds or aneurysms. CT of her brain to be obtained. She will be treated with IV fluids Toradol and Zofran and reassess. Neurologic exam is completely normal. Exam patient doing well. Headache improving. She is comfortable being discharged home. Neurologic exam remains normal. CAT scan was unremarkable. History & Record Review Discussion w/independent historian: Patient Radiography Diagnostic Testing: Clinical Impression(s) from Imaging Studies Brain CT 05/14/23 18:25 IMPRESSION: No acute intracranial findings. Electronically Signed: Rohan Huizar MD at 19:00 EDT Reading Location ID and State: [address] [place] [address] Tel , Service support , Discharge Plan Triage Chief Complaint: Neuro S/Sx ED Provider: Jorge Lopez Dx/Rx/DC Orders Clinical Impression: Headache, migraine Instructions: ED, Migraine (Classical) Prescriptions: No Action vit,hmyo25-ydth-lqzoj 1 TABLET tablet 1 tab PO DAILY ibuprofen 600 MG tablet 600 mg PO Q6H PRN PRN (Reason: Pain Score 1-3) Qty: 30 0RF citalopram 40 mg tablet 40 mg PO DAILY Patient Comments: take 1 tablet by mouth once daily cholecalciferol (vitamin D3) [Vitamin D3] 25 mcg (1,000 unit) Tablet,Chewable 25 mcg PO DAILY Primary Care Provider: Prachi Hatch NP Referrals: Prachi Hatch NP, TEXT[employer] 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 Tylenol and Motrin. Fall with not improving. Return if worse. Disposition Disposition: Home, Self Care What to do if you have Problems For any increased pain, shortness of breath, bleeding, nausea or vomiting, chestpain, or any unexpected problems, contact your Primary Care Provider. Call [facility] ([phone]) or report to the closest Emergency Room. Call 911 if necessary. 05/14/231946 <Electronically signed by Jorge Lopez MD> Cosigner Signature (if applicable): CC: ALDO Velarde Podlogar ~ Signed [facility] Work Phone: [phone] 300-803604-27-2023 Miscellaneous Notes* Telephone Encounter - Yue Ott RN - 03/11/2023 10:22 AM EDT Patient is in office now for annual with RR. Yue Ott RN [facility] History of Present illness Narrative* Dragan Portillo MD - 03/11/2023 8:27 AM EDT Vi is a 42 year old who [...] w/ last mirena, wasn't in proper location i n uterus Menses: cycles every 28 days and 4-5 days of flow. 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 Comments: Sexual Activity: Yes; Male; bilateral [...] external genitalia normal, normal Bartholin's glands, urethra, Raeville's glands, no vulvar lesions, no cervical lesions, [...] change Dragan Portillo MD documented in this encounterK[facility]02-07-[facility]23 Miscellaneous Notes* Telephone Encounter - Blanka Perez RN - 12/22/2022 10:45 AM EST Started OCP on 11/27/22 documented in this encounterK[facility]01[facility] History of Present illness Narrative* Dragan Portillo MD - 11/27/2022 3:56 PM EST VIRTUAL VISIT PROGRESS NOTE This is a virtual visit using [employer] video visit. It required patient-provider interaction for themedical decision making as documented below. Vi Vela is a 42 year old female seen for heavy menses. Some increased cramping. Historyof endometriosis. She is bleeding through a super tampon every hour and a half or so at her heaviest day. It only is heavy for a day or so and then more normal. She denies any pain or bleeding with in tercourse. HISTORY REVIEWED (electronic chart updated): PAST MEDICAL [...] Take 1,000 Units by mouth once daily. Zhojpyqf-Ux-Noo-Fe-FA tab Take 1 tablet by mouth. No [...] the past and now that she is donebreast-feeding they have returned. Follow-up for annual in 2 to 3 months. Contact office if any ques tions or concerns in between now and then. Had a Mirena in the past and had to have a hysteroscopy to have it removed. There are no Patient Instructions on file for this visit. I spent a total of 13 minutes on the date of the service which included preparing to see the patient, ytfw-gj-wcqe patient care, completing clinical documentation, obtaining and/or reviewing separately obtained history, and ordering medications, tests, or procedures Dragan Portillo MD documented in this [facility]12-30-2022 Miscellaneous Notes* Telephone Encounter - Dragan Portillo MD - 11/13/2022 11:59 AM EST Schedule appointment. Virtual ok. Dragan Portillo MD documented in this encounterK[facility]12-19-2022 Miscellaneous Notes* Telephone Encounter - Crystal Betancourt LPN - 11/02/2022 8:44 AM EST Patient called in wanting to schedule surgery. Informed patient at this time this nurse is just waiting on paperwork and instruction from Dr. Chauhan. This nurse will be in touch. Crystal Betancourt LPN documented in this [facility]12-12-2022 History of Present illness Narrative* Cleveland Chauhan - 10/26/2022 8:40 AM EST FOLLOW UP PODIATRIC OFFICE VISIT Chief Complaint: This 42 year old who presents for follow up:bunion of left foot and tailors bunionof left foot Patient presents to clinic for follow-up left foot. Susan continues to complain of bunion to the left foot. Her pain to the left big toe is more localized in the joint. She complains of a dull achypain, worse when she is pushing off the great toe She also complains of pain in the 5th metatarsal. Past treatment for pain has included wider shoes, padding, steroid injection to left 5th toe. She is interested in surgery. PAIN EVALUATION 10/26/2022 0821 Pain Level: 4 Pain Location: Foot-Left Description: Aching Duration Units: Unknown Frequency: Continuous Intervention/Comfort measure: Reposition;Distractions;Relaxation No results found for: HBA1C PCP: Marycruz [...] Take 1,000 Units by mouth once daily. Qhabdlnf-Th-Bzz-Fe-FA tab Take 1 tablet by mouth. methylPREDNISolone [...] pain with dorsiflexion. Mild pain present to plantarsesamoid ASSESSMENT: (M21.622) Tailor's bunion of left foot (primary encounter diagnosis) (M20.12) Acquired hallux valgus of left foot PLAN: Discussed bunion of left great toe. I do feel she has component of valgus but also rigidus. I askedpatient to monitor her activity over the past few weeks and she has found there is more pain withinthe joint as opposed to the bunion. I informed her that there are two options for her bunion, one is to perform metatarsal osteotomy, the other is to address the valgus and arthritis with a fusion ofthe first mtpj. It really will be an intra-op evaluation of the cartilage. We discussed getting mrifor further evaluation vs using intra-op findings. She [...] mtpj fusion pending intra-op findings For her alecia patton, will plan for distal metatarsal osteotomy. All r/b/a/ discussed. Patient consents to proceed Cleveland Chauhan DPM * Sharon Mckeon RN - 10/26/2022 8:20 AM EST AMB ROOMING INTAKE FLOWSHEET DATA Risk Screening Do you have concerns about personal safety or safety in the home?: No Pain Pain Level: 4 Pain Location: Foot-Left Description: Aching Duration Units: Unknown Frequency: Continuous Intervention/Comfort measure: Reposition, Distractions, Relaxation Patient presents with: Left Foot - Established Patient, Follow Up, Pain documented in this encounterK[facility]10-27-2022 History of Present illness Narrative* Cleveland Chauhan - 09/10/2022 9:18 AM EDT FOLLOW UP PODIATRIC OFFICE VISIT Chief Complaint: [...] Months Frequency: -- Continuous Intervention/Comfort measure: -- Reposition;Relaxation;Medication;Cold No results found for: HBA1C PCP: Marycruz [...] Take 1,000 Units by mouth once daily. Vkmkilvv-Gz-Ukf-Fe-FA tab Take 1 tablet by mouth. methylPREDNISolone [...] 5th metatarsal head. Mild tailors bunion deformity ispresent. Patient has pain to palpation of left 1st metatarsal head Mild bunion deformity is noted to left foot. ROM of left 1st mtpj is decreased with mild pain. ROM of left 1st metatarsal cuneiform joint does demonstrate some increased motion but motion is not feltto be excessive. ASSESSMENT: (M21.622) Favio's bunion of left foot (primary encounter diagnosis) (M20.12) Acquired hallux valgus of left foot PLAN: Discussed tailors bunion of left foot. Past treatment has included mobic, wider shoes, steroid injection. She has increased pain and now that she has been more active at work, the pain is increasing.She wishes to pursue surgery. We discussed tailors [...] weeks of her findings. Cleveland Chauhan DPM * Crystal Betancourt LPN - 09/10/2022 8:59 AM EDT AMB ROOMING INTAKE FLOWSHEET DATA Pain Pain Level: 5 Pain Location: Foot-Left Description: Sore, Aching Duration Amount of Time: 7 Duration Units: Months Frequency: Continuous Intervention/Comfort measure: Reposition, Relaxation, Medication, Cold Patient presents with: Left Foot - Established Patient, Pain, Follow Up Crystal Betancourt LPN documented in this encounterK[facility]07-13-2022 Instructions* Patient Instructions* Cleveland Chauhan - 05/27/2022 8:36 AM EDT STEROID INJECTION You have been injected with a corticosteroid and local anesthesia today. This should provide reliefof symptoms for the next 8 hours or [...] joint infection may occur. Joint infection is aconcern if you experience any of the following: [...] injections of steroids can also damage joint cartilage.For these reasons, there are limits to how many times and how frequently corticosteroid injections can be used in the same area. If anything seems unusual or out of the ordinary please contact our office as soon as possible for further instruction. documented in this encounterK[facility]07-13-2022 History of Present illness Narrative* Cleveland Chauhan - 05/27/2022 8:28 AM EDT Images from the original note were not [...] Take 1 tablet by mouth once daily. Iayngohp-Do-Cmb-Fe-FA ( VITAMIN) tab Take 1 tablet by [...] the left 5th bursae. The risks, benefits, potentialcomplications, personnel present, and alternatives to this were [...] correction at same time. Cleveland Chauhan DPM * Sophia Maravilla RN - 05/27/2022 8:14 AM EDT AMB ROOMING INTAKE FLOWSHEET DATA Risk Screening [...] MDP with minimal relief. documented in this encounterK[facility]05-26-2022 History of Present illness Narrative* Cleveland Chauhan - 04/09/2022 8:52 AM EDT Chief Complaint: This 41 year old female [...] Take 1,000 Units by mouth once daily. Jibupzuu-Ip-Ndf-Fe-FA ( VITAMIN) tab Take 1 tablet by [...] for oral steroid. If pain fails to improve,consider steroid injection 5. surgcial options again discussed for tailors bunion and hallux valgus Cleveland Chauhan DPM Podiatry [address] [facility] [address] Dept: [phone] Dept * Heidy De Santiago - 04/09/2022 8:24 AM EDT Patient presents with: Left Foot - Pain [...] relaxation Heidy De Santiago documented in this encounterK[facility]05-26-2022 History of Present illness Narrative* RT Carolina(R) - 04/09/2022 8:10 AM EDT Radiology Service Progress Note PATIENT NAME: Vi Vela DATE OF SERVICE: April 09, 2022 TIME: 8:15 AM PATIENT IDENTITY VERIFICATION COMPLETED USING TWO (2) IDENTIFIERS: Name and Date of confirmedby patient verbally. FALL SCREENING: Has the patient had 2 falls in the last year or 1 fall with injury or currently using an Ambulatory Assistive Device (Walker, Cane, Wheelchair, Crutches, etc.)? No PATIENT GENDER DATA: Female. status: : No status: NO. PATIENT RELEVANT IMPLANT DATA REVIEWED: Not Applicable RADIOLOGY DEPARTMENT: General X-ray: Exam(s) Completed: Lower Extremity X- Ray(s): Foot, Left and Wt. Bearing PERIPHERAL IV DATA: Not applicable SIGNED BY: RT Carolina(R) April 09, 2022 8:15 AM documented in this encounterK[facility]03-30-2022 History of Present illness Narrative* Dragan Portillo MD - 02/11/2022 2:17 PM EDT Vi is a 41 year old who presents for an annual gynecologic exam without complaints. No menses yet. Just stopped nursing 4 days ago. Menses: n/a. 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 Dragan Portillo MD documented in this encounterK[facility]02-08-2021 History of Past illness Narrative* Problem Noted [...] is interested in a referral to the [facility] behavioral services. She has not been happy [...] Overview: Added automatically from request for surgery [id number] Internal and external hemorrhoids without compli cation 06/24/2017 04/09/2021 Overview: Added automatically from request for surgery [id number] 37 weeks gestation of 05/26/2016 04/12/2018 Placenta previa in second trimester 01/20/2016 07/07/2018 Overview: 04/12/18 - Hx of placenta previa in 1st . Paulina Rose APRN.CNM Back pain affecting 01/17/2016 Overview: 01/17/16 - patient with herniated disc - KJ Encounter for supervision of normal first in second trimester 11/26/2015 04/12/2018 [facility] 05[facility]11/2018 Abnormal mammogram 05/30/2015 12/01/2018 Female infertility 04/25/2015 12/01/2018 documented as of this encounter (statuses as of 02/11/2022) [facility] History of Past illness Narrative* Problem Noted [...] is interested in a referral to the [facility] behavioral services. She has not been happy [...] and discussed. Level II Ultrasound and Dr. Seguar's services discussed. Patient desires MaterniT 21 testing and nuchal ultrasound.TKRN Bright red rectal bleeding 06/24/201704/09 Overview: Added automatically from request for surgery [id number] Internal and external hemorrhoids without compli cation 06/24/2017 04/09/2021 Overview: Added automatically from request for surgery [id number] 37 weeks gestation of 05/26/2016 04/12/2018 Placenta previa in second trimester 01/20/2016 07/07/2018 Overview: 04/12/18 - Hx of placenta previa in 1st . Paulina Rose APRN.CNM Back pain affecting 01/17/2016 Overview: 01/17/16 - patient with herniated disc - KJ Encounter for supervision of normal first in second trimester 11/26/2015 04/12/2018 Rh negative status during in first [facility] 11/19/2015 05/11/2018 Abnormal mammogram 05/30/2015 12/01/2018 Female infertility 04/25/2015 12/01/2018 documented as of this encounter (statuses as of 04/09/2022) [facility] History of Past illness Narrative* Problem Noted [...] is interested in a referral to the [facility] behavioral services. She has not been happy [...] Overview: Added automatically from request for surgery [id number] Internal and external hemorrhoids without compli cation 06/24/2017 04/09/2021 Overview: Added automatically from request for surgery [id number] 37 weeks gestation of 05/26/2016 04/12/2018 Placenta previa in second trimester 01/20/2016 07/07/2018 Overview: 04/12/18 - Hx of placenta previa in 1st . Paulina Rose APRN.CNM Back pain affecting 01/17/2016 Overview: 01/17/16 - patient with herniated disc - Encounter for supervision of normal first in second trimester 11/26/2015 04/12/2018 Rh negative status [facility] 11/19/2015 05/11/2018 Abnormal mammogram 05/30/2015 12/01/2018 Female infertility 04/25/2015 12/01/2018 documented as of this encounter (statuses as of 04/10/2022) [facility] of Past illness Narrative* Problem Noted [...] is interested in a referral to the [facility] behavioral services. She has not been happy [...] Overview: Added automatically from request for surgery [id number] Internal and external hemorrhoids without compli cation 06/24/2017 04/09/2021 Overview: Added automatically from request for surgery [id number] 37 weeks gestation of 05/26/2016 04/12/2018 Placenta previa in second trimester 01/20/2016 07/07/2018 Overview: 04/12/18 - Hx of placenta previa in 1st . Paulina Rsoe APRN.CNM Back pain affecting 01/17/2016 Overview: 01/17/16 - patient with herniated disc - KJ Encounter for supervision of normal first in second trimester 11/26/2015 04/12/2018 Rh negative status during in first [facility] 11/19/2015 05/11/2018 Abnormal mammogram 05/30/2015 12/01/2018 Female infertility 04/25/2015 12/01/2018 documented as of this encounter (statuses as of 05/27/2022) [facility] of Past illness Narrative* Problem Noted [...] is interested in a referral to the [facility] behavioral services. She has not been happy with the follow-up visits with her provider recently. See phone note dated May [address] Portillo. JOHNRJenelle Positive GBS test 09/30/2018 11/04/2018 resulting from [...] Overview: Added automatically from request for surgery [id number] Internal and external hemorrhoids without compli cation 06/24/2017 04/09/2021 Overview: Added automatically from request for surgery [id number] 37 weeks gestation of 05/26/2016 04/12/2018 Placenta [...] of this encounter (statuses as of 09/17/2022) [facility] of Past illness Narrative* Problem Noted [...] is interested in a referral to the [facility] behavioral services. She has not been happy [...] Overview: Added automatically from request for surgery [id number] Internal and external hemorrhoids without compli cation 06/24/2017 04/09/2021 Overview: Added automatically from request for surgery [id number] 37 weeks gestation of 05/26/2016 04/12/2018 Placenta previa in second trimester 01/20/2016 07/07/2018 Overview: 04/12/18 - Hx of placenta previa in 1st . Paulina Rose APRN.CNM Back pain affecting 01/17/2016 Overview: 01/17/16 - patient with herniated disc - Encounter for supervision of normal first in second trimester 11/26/2015 04/12/2018 Rh negative status during in first [facility] 11/19/2015 05/11/2018 Abnormal mammogram 05/30/2015 12/01/2018 Female infertility 04/25/2015 12/01/2018 documented as of this encounter (statuses as of 11/03/2022) [facility] of Past illness Narrative* Problem Noted [...] is interested in a referral to the [facility] behavioral services. She has not been happy with the follow-up visits with her provider recently. See phone note dated May [address] Portillo. TKRN Positive GBS test 09/30/2018 11/04/2018 resulting from ass isTrellie reproductive technology, antepartum 03/10/2018 12/01/2018 Overview: 03/10/2018Patient [...] Overview: Added automatically from request for surgery [id number] Internal and external hemorrhoids without compli cation 06/24/2017 04/09/2021 Overview: Added automatically from request for surgery [id number] 37 weeks gestation of 05/26/2016 04/12/2018 Placenta previa in second trimester 01/20/2016 07/07/2018 Overview: 04/12/18 - Hx of placenta previa in 1st . Paulina Rose APRN.CNM Back pain affecting 01/17/2016 Overview: 01/17/16 - patient with herniated disc - KJ Encounter for supervision of normal first in second trimester 11/26/2015 04/12/2018 Rh negative status during in first tri [facility] 11/19/2015 05/11/2018 Abnormal mammogram 05/30/2015 12/01/2018 Female infertility 04/25/2015 12/01/2018 documented as of this encounter (statuses as of 11/18/2022) [facility] of Past illness Narrative* Problem Noted [...] is interested in a referral to the [facility] behavioral services. She has not been happy with the follow-up visits with her provider recently. See phone note dated May [address] Portillo. TKRN Positive GBS test 09/30/2018 11/04/2018 resulting from ass isted reproductive technology, antepartum 03/10/2018 12/01/2018 Overview: 03/10/2018Patient had a frozen embryo transfer 01/21/[address] Simmosn. TKRN Previous delivery, antepartum 8 04/09/2021 Overview: [...] Overview: Added automatically from request for surgery [id number] Internal and external hemorrhoids without compli cation 06/24/2017 04/09/2021 Overview: Added automatically from request for surgery [id number] 37 weeks gestation of 05/26/2016 04/12/2018 Placenta previa in second trimester 01/20/2016 07/07/2018 Overview: 04/12/18 - Hx of placenta previa in 1st . Paulina Rose APRN.CNM Back pain affecting 01/17/2016 Overview: 01/17/16 - patient with herniated disc - Encounter for supervision of normal first in second trimester 11/26/2015 04/12/2018 Rh negative status during in first [facility] 11/19/2015 05/11/2018 Abnormal mammogram 05/30/2015 12/01/2018 Female infertility 04/25/2015 12/01/2018 documented as of this encounter (statuses as of 11/27/2022) [facility] of Past illness Narrative* Problem Noted [...] is interested in a referral to the [facility] behavioral services. She has not been happy [...] Overview: Added automatically from request for surgery [id number] Internal and external hemorrhoids without compli cation 06/24/2017 04/09/2021 Overview: Added automatically from request for surgery [id number] 37 weeks gestation of 05/26/2016 04/12/2018 Placenta [...] of this encounter (statuses as of 11/27/2022) [facility] of Past illness Narrative* Problem Noted [...] is interested in a referral to the [facility] behavioral services. She has not been happy [...] Overview: Added automatically from request for surgery [id number] Internal and external hemorrhoids without compli cation 06/24/2017 04/09/2021 Overview: Added automatically from request for surgery [id number] 37 weeks gestation of 05/26/2016 04/12/2018 Placenta previa in second trimester 01/20/2016 07/07/2018 Overview: 04/12/18 - Hx of placenta previa in 1st . Paulina Rose APRN.CNM Back pain affecting 01/17/2016 Overview: 01/17/16 - patient with herniated disc - Encounter for supervision of normal first in second trimester 11/26/2015 04/12/2018 Rh negative status during in first [facility] 11/19/2015 05/11/2018 Abnormal mammogram 05/30/2015 12/01/2018 Female infertility 04/25/2015 12/01/2018 documented as of this encounter (statuses as of 12/22/2022) [facility]02-08-2021 History of Past illness Narrative* Problem Noted [...] is interested in a referral to the [facility] behavioral services. She has not been happy [...] Overview: Added automatically from request for surgery [id number] Internal and external hemorrhoids without compli cation 06/24/2017 04/09/2021 Overview: Added automatically from request for surgery [id number] 37 weeks gestation of 05/26/2016 04/12/2018 Placenta previa in second trimester 01/20/2016 07/07/2018 Overview: 04/12/18 - Hx of placenta previa in 1st . Paulina Rose APRN.JOSEFINAM Back pain affecting 01/17/2016 Overview: 01/17/16 - patient with herniated disc - Encounter for supervision of normal first in second trimester 11/26/2015 04/12/2018 [facility] 05/11/2018 Abnormal mammogram 05/30/2015 12/01/2018 Female infertility 04/25/2015 12/01/2018 documented as of this encounter (statuses as of 02/10/2023) [facility]02-08-2021 History of Past illness Narrative* Problem Noted [...] is interested in a referral to the [facility] behavioral services. She has not been happy [...] Overview: Added automatically from request for surgery [id number] Internal and external hemorrhoids without compli cation 06/24/2017 04/09/2021 Overview: Added automatically from request for surgery [id number] 37 weeks gestation of 05/26/2016 04/12/2018 Placenta [...] of this encounter (statuses as of 03/11/2023) [facility]02-08-2021 History of Past illness Narrative* Problem Noted [...] is interested in a referral to the [facility] behavioral services. She has not been happy [...] Overview: Added automatically from request for surgery [id number] Internal and external hemorrhoids without compli cation 06/24/2017 04/09/2021 Overview: Added automatically from request for surgery [id number] 37 weeks gestation of 05/26/2016 04/12/2018 Placenta [...] of this encounter (statuses as of 03/11/2023) [facility]02-08-2021 History of Past illness Narrative* Problem Noted [...] is interested in a referral to the [facility] behavioral services. She has not been happy [...] Overview: Added automatically from request for surgery [id number] Internal and external hemorr hoids without complication 06/24/2017 04/09/2021 Overview: Added automatically from request for surgery [id number] 37 weeks gestation of 05/26/2016 04/12/2018 Placenta [...] of this encounter (statuses as of 06/17/2023) [facility]02-08-2021 History of Past illness Narrative* Problem Noted [...] is interested in a referral to the [facility] behavioral services. She has not been happy [...] Overview: Added automatically from request for surgery [id number] Internal and external hemorr hoids without complication 06/24/2017 04/09/2021 Overview: Added automatically from request for surgery [id number] 37 weeks gestation of 05/26/2016 04/12/2018 Placenta previa in second trimester 01/20/2016 07/07/2018 Overview: 04/12/18 - Hx of placenta previa in 1st . Paulina Rose APRN.JOSEFINAM Back pain affecting 01/17/2016 11/04/2018 Overview: 01/17/16 - patient with herniated disc - KJ Encounter for supervision of normal first in second trimester 11/26/2015 04/12/2018 Rh negative status during pr egnancy in first trimester 11/19/2015 05/11/2018 Abnormal mammogram 05/30/2015 9 Female infertility 04/25/2015 9 documented as of this encounter (statuses as of 10/11/2023) [facility]02-08-2021 History of Past illness Narrative* Problem Noted [...] is interested in a referral to the [facility] behavioral services. She has not been happy [...] Overview: Added automatically from request for surgery [id number] Internal and external hemorr hoids without complication 06/24/2017 04/09/2021 Overview: Added automatically from request for surgery [id number] 37 weeks gestation of 05/26/2016 04/12/2018 Placenta [...] of this encounter (statuses as of 12/06/2023) [facility] Diagnosis Encounter for gynecological examination (general) (routine) without abnormal findings Encounter for screening mammogram for breast cancer mood disturbance Mental disorders of mother, with delivery, with mention of complication [facility] Bursitis of left foot- Primary Tailor's bunion of left foot Acquired hallux valgus of left foot Hallux valgus (acquired) [facility] Pain Generalized pain [facility] Diagnosis Bursitis of left foot- Primary Tailor's bunion of left foot Acquired hallux valgus of left foot Hallux valgus (acquired) [facility] Diagnosis Tailor's bunion of left foot- Primary Acquired hallux valgus of left foot Hallux valgus (acquired) [facility]* Diagnosis Menorrhagia with regular cycle- Primary Excessive or frequent menstruation [facility]* Diagnosis Onset Date Resolution Status Herniation of lumbar interve rtebral disc with radiculopathy acute Segmental and somatic dysfunction of lumbar region acute Segmental and somatic dysfunction of pelvic region acute Segmental and somatic dysfunction of thoracic region acute Herniation of lumbar interve rtebral disc with radiculopathy acute Segmental and somatic dysfunction of lumbar region acute Segmental and somatic dysfunction of pelvic region acute Segmental and somatic dysfunction of thoracic region acute Herniation of lumbar interve rtebral disc with radiculopathy acute Segmental and somatic dysfunction of lumbar region acute Segmental and somatic dysfunction of pelvic region acute Herniation of lumbar interve rtebral disc with radiculopathy acute Segmental and somatic dysfunction of cervical region acute Segmental and somatic dysfunction of lumbar region acute Segmental and somatic dysfunction of pelvic region acute Segmental and somatic dysfunction of thoracic region acute Herniation of lumbar interve rtebral disc with radiculopathy acute Segmental and somatic dysfunction of cervical region acute Segmental and somatic dysfunction of lumbar region acute Segmental and somatic dysfunction of pelvic region acute Segmental and somatic dysfunction of thoracic region acute Herniation of lumbar interve rtebral disc with radiculopathy acute Segmental and somatic dysfunction of lumbar region acute Segmental and somatic dysfunction of pelvic region acute Segmental and somatic dysfunction of thoracic region acute Herniation of lumbar interve rtebral disc with radiculopathy acute Segmental and somatic dysfunction of cervical region acute Segmental and somatic dysfunction of lumbar region acute Segmental and somatic dysfunction of pelvic region acute Segmental and somatic dysfunction of thoracic region acute Herniation of lumbar interve rtebral disc with radiculopathy acute Segmental and somatic dysfunction of cervical region acute Segmental and somatic dysfunction of lumbar region acute Segmental and somatic dysfunction of pelvic region acute Segmental and somatic dysfunction of thoracic region acute [facility] Work Phone: Evaluation note* Diagnosis Encounter for gynecological examination (general) (routine) without abnormal findings- Primary [facility] Diagnosis mood disturbance Mental disorders of mother, with delivery, with mention of complication documented in this encounter [facility] noteNo assessment information availableWMary [facility] Work Phone: Evaluation note* Diagnosis Upper respiratory tract infection, unspecified type- Primary documented in this encounter [facility] note* Diagnosis Encounter for screening mammogram for breast cancer documented in this encounter [facility] note* Diagnosis Onset Date Resolution Status Segmental and somatic dysfunction of lumbar region acute Segmental and somatic dysfunction of pelvic region acute Segmental and somatic dysfunction of thoracic region acute Herniation of lumbar interve rtebral disc with radiculopathy chronic Segmental and somatic dysfunction of lumbar region acute Segmental and somatic dysfunction of pelvic region acute Herniation of lumbar interve rtebral disc with radiculopathy chronic Segmental and somatic dysfunction of lumbar region acute Segmental and somatic dysfunction of pelvic region acute Segmental and somatic dysfunction of thoracic region acute Herniation of lumbar interve rtebral disc with radiculopathy chronic Segmental and somatic dysfunction of lumbar region acute Segmental and somatic dysfunction of pelvic region acute Segmental and somatic dysfunction of thoracic region acute Herniation of lumbar interve rtebral disc with radiculopathy chronic Segmental and somatic dysfunction of lumbar region acute Segmental and somatic dysfunction of pelvic region acute Segmental and somatic dysfunction of thoracic region acute Herniation of lumbar interve rtebral disc with radiculopathy chronic [facility] Work Phone: Evaluation note* Diagnosis Onset Date Resolution Status Segmental and somatic dysfunction of lumbar region acute Segmental and somatic dysfunction of pelvic region acute Herniation of lumbar interve rtebral disc with radiculopathy chronic Segmental and somatic dysfunction of lumbar region acute Segmental and somatic dysfunction of pelvic region acute Segmental and somatic dysfunction of thoracic region acute Herniation of lumbar interve rtebral disc with radiculopathy chronic Segmental and somatic dysfunction of lumbar region acute Segmental and somatic dysfunction of pelvic region acute Segmental and somatic dysfunction of thoracic region acute Herniation of lumbar interve rtebral disc with radiculopathy chronic Segmental and somatic dysfunction of lumbar region acute Segmental and somatic dysfunction of pelvic region acute Segmental and somatic dysfunction of thoracic region acute Herniation of lumbar interve rtebral disc with radiculopathy chronic Segmental and somatic dysfunction of lumbar region acute Segmental and somatic dysfunction of pelvic region acute Segmental and somatic dysfunction of thoracic region acute Herniation of lumbar interve rtebral disc with radiculopathy chronic [facility] Work Phone: Evaluation note* Diagnosis Encounter for gynecological examination (general) (routine) without abnormal findings- Primary Encounter for screening mammogram for malignant neoplasm of breast Other screening mammogram Urinary, incontinence, stress female Female stress incontinence Axillary pain, left [facility] Diagnosis mood disturbance Mental disorders of mother, with delivery, with mention of complication [facility] Diagnosis Axillary pain, left [facility] Diagnosis Axillary pain, left [facility] Diagnosis Redness of left eye- Primary Redness or discharge of eye [facility] Diagnosis Encounter for IUD insertion- Primary Encounter for insertion of intrauterine contraceptive device Endometriosis Endometriosis, site unspecified Menorrhagia with regular cycle Excessive or frequent menstruation PMS (premenstrual syndrome) Premenstrual tension syndromes [facility]* Diagnosis Encounter for IUD insertion- Primary Encounter for insertion of intrauterine contraceptive device mood disturbance Mental disorders of mother, with delivery, with mention of complication [facility] Diagnosis Pelvic pain in female- Primary Unspecified symptom associated with female genital organs Abnormal uterine bleeding (AUB) [facility] Diagnosis Pelvic pain in female- Primary Unspecified symptom associated with female genital organs Abnormal uterine bleeding (AUB) Arcuate uterus Malpositioned intrauterine device (IUD), initial encounter Complex cyst of left ovary [facility]* Diagnosis Ovarian cyst, left- Primary Other and unspecified ovarian cyst Encounter for IUD removal Encounter for removal of intrauterine contraceptive device [facility]* Diagnosis mood disturbance Mental disorders of mother, with delivery, with mention of complication [facility] Diagnosis Endometriosis- Primary Endometriosis, site unspecified Menorrhagia with regular cycle Excessive or frequent menstruation [facility]* Diagnosis Menorrhagia with regular cycle- Primary Excessive or frequent menstruation Pelvic and perineal pain Unspecified symptom associated with female genital organs Ovarian cyst, right Other and unspecified ovarian cyst Dysmenorrhea Deep dyspareunia Endometriosis Endometriosis, site unspecified [facility]* Diagnosis Pelvic and perineal pain Unspecified symptom associated with female genital organs Ovarian cyst, right Other and unspecified ovarian cyst Dysmenorrhea Deep dyspareunia Endometriosis Endometriosis, site unspecified Menorrhagia with regular cycle Excessive or frequent menstruation [facility] Author Rajinder Gold [facility] Note Date/Time April 17, 2025 1:45a [facility] System Medical Records Department [address] [place] [address] History & Physical Exam 04/17/25 0130 MR#: [id number] Acct: [id number] Name: VI VELA Rep #:[id number] : 1980 44 From: Rajinder Pride PCP: ALDO Scruggs Status:REG ER Location: ED HPI - General General Date of Service: 04/17/25 Chief Complaint: Acute onset upper abdominal pain HPI Narrative VI VELA, is a 44 F who presents to [facility] with complaints of abdominal pain and associated nausea that began 2 days ago. Patient states that she had dinner approximately 1800 on 04/15/2025 thereafter began with upper abdominal pain and nausea just 30 minutes following. She describes this pain as a searing and burning character. She was able to find sleep and upon awakening in the morning experienced further nausea. However, she also adds that she became really hungry and had an uncrustable and a bagel for breakfast. Thereafter the nausea persisted and she first reached out to outpatient GI office for guidance but then elected to come to theemergency department. Upon arrival patient underwent laboratory testing and ultrasound imaging. She states that she now feels better than upon presentation Patient's laboratories are completely within normal limits?including no evidenceof leukocytosis or left shift. Ultrasound imaging is read by radiology as equivocal for acute cholecystitis given presence of positive sonographic Ennis sign as reported by technologist. Because of potentially positive Ennis sign for emergency medicine physician I have been asked to evaluate. Patient relays a history of prior presentation to the emergency department on 03/15/2025 where she sought further evaluation of, again, searing and burning painthat she relates was of greater intensity than even her most recent episode. She shares she underwent CT imaging and then was given a follow-up with gastroenterology as an outpatient. This latter visit resulted in a ultrasound which was completed last week. Patient states that she learned of the results of that study after calling in yesterday with complaints of symptoms. She has that she was to be given referral to surgery upon receiving those results. Patient's past surgical history includes laparoscopic exploration for endometriosis with resultant tubal excision on the right as well as appendectomy. Patient states that then just a year ago she underwent second laparoscopy for uterine perforation from an IUD and this included removal of herleft fallopian tube. [facility] Medical History COVID Wears hearing aid Loss of hearing Depression Restless legs History of chemical tubal occlusion Wears glasses Wears contact lenses Anxiety Alcohol use Back pain Injury of back Former smoker History of herniated intervertebral disc Stomach ulcer Home Medications ?Medication ?Instructions ?Recorded ?Last Taken ?Type cholecalciferol (vitamin D3) 25 25 mcg PO DAILY 07/17/24 History mcg (1,000 unit) chewable tablet (Vitamin D3) citalopram 40 mg tablet 40 mg PO DAILY 04/24/2101/08 History bupropion HCl 150 mg 24 hr tablet, 150 mg PO QDAY 04/1607/17/24 History extended release acetaminophen 500 mg tablet 500 mg PO Q6H #30 tabs 03/08 Unknown Rx drospirenone (contraceptive) 4 mg 1 tab PO QDAY Unknown History (28) tablet (Slynd) ondansetron 4 mg disintegrating 4 mg PO Q8H PRN PRN Na usea #10 tabs 04/17/25 Unknown Rx tablet Allergy/AdvReac Type Severity Reaction Status Date / Time morphine AdvReac Itching Verified 04/16/25 18:12 Family History Other Alcoholism CVA (cerebral vascular accident) Heart disease Osteoporosis Thyroid disorder Surgical History History of hysteroscopy History of tonsillectomy and adenoidectomy Hx of laparoscopy History of foot surgery History of delivery Social History Smoking Status: Former smoker alcohol intake: current alcohol intake frequency: holidays/special occasions only substance use type: does not use what type of physical activity do you participate in: yoga frequency: 3-4 times per week Vital Signs Vital Signs Vital Signs: 04/16/25 18:10 04/16/25 21:50 04/16/25 22:21 Temperature 98.1 F 98.1 F 98 F Temperature Source Oral Temporal Temporal Pulse Rate 80 78 80 Respiratory Rate 19 H 16 16 Blood Pressure 137/78 H 127/84 H 124/80 H Blood Pressure Mean 97 98 94 Pulse Ox 98 98 99 Oxygen Delivery Method Room Air Room Air 04/17/25 00:21 Temperature 98.1 F Temperature Source Temporal Pulse Rate 74 Respiratory Rate 16 Blood Pressure 123/77 H Blood Pressure Mean 92 Pulse Ox 98 Oxygen Delivery Method Weight Weight: 151 lb 6.4 oz Body Mass Index (BMI) 25.9 Physical Exam Const alert, oriented x3 and no apparent distress Resp normal respiratory effort GI GI Narrative: Slender, nondistended, no visible scars, no visible herniations. Soft, mildly tender to palpation right upper quadrant with negative Ennis sign. Results Lab / Micro Data 04/16/25 18:51 04/16/25 18:51 Labs: Laboratory Results - last 24 hr 04/16/25 18:51: WBC 7.9, RBC 4.46, Hgb 12.9, Hct 39.8, MCV 89.2, MCH 28.9, MCHC 32.4, RDW Std Deviation 39.9, RDW Coeff of Magui 12.3, Plt Count 267, MPV 10.7, Immature Gran % (Auto) 0.300, Neut % (Auto) 58.4, Lymph % (Auto) 30.6, [place] % (Auto) 8.3, Eos % (Auto) 1.8, Baso % (Auto) 0.6, Absolute Neuts (auto) 4.6, Absolute Lymphs (auto) 2.42, Nucleated RBC % 0, Sodium 139, Potassium 4.1, Chloride 105, Carbon Dioxide 22.8, Anion Gap 12, BUN 13, Creatinine 0.93, Estim Creat Clear Calc 75.00, Est GFR (MDRD) Non-Af 78, BUN/Creatinine Ratio 14.0, Glucose 92, Calcium 9.4, Total Bilirubin 0.31, AST 23, ALT 12, Alkaline Phosphatase 97, Total Protein 7.9, Albumin 4.7, Globulin 3.2, Albumin/Globulin Ratio 1.5, Lipase 39, Serum , Qual NEGATIVE 04/16/25 21:46: Urine Color Yellow, Urine Clarity Clear, Urine pH 6.0, Ur Specific [place] 1.020, Urine Protein 30 H, Urine Glucose (UA) Normal, Urine Ketones 50 H, Urine Occult Blood 25 H, Urine Nitrite Negative, Urine Bilirubin Negative, Urine Urobilinogen Normal, Ur Leukocyte Esterase 25 H, Urine RBC 0-5 SEEN, Urine WBC 0-5 SEEN, Ur Squamous Epith Cells 0-5 SEEN, Urine Bacteria 0 SEEN, Urine Mucus 0 SEEN Imaging Radiology Impression Gallbladder Ultrasound 04/16/25 23:00 IMPRESSION: 1. Cholelithiasis with positive sonographic Ennis's sign, equivocal for acute cholecystitis in the setting of normal wall thickness and no pericholecystic fluid. Consider Surgical consultation if clinical concern persists. 2. Findings suggestive of mild hepatic steatosis. Reading Location: [facility] Assessment & Plan Assessment/Plan (1) Cholelithiasis without cholecystitis: PLAN: Patient 44-year-old female who was evaluated emergency department after presentation for acute onset epigastric abdominal discomfort and associated nausea. Patient states that her presentation is principally for the nausea which has yet to remit since its onset approximately 48 hours earlier. While she shares that she was trying to watch her diet for fatty foods she states that her symptoms followed a meal of peppery brisket. She notes that the symptoms began approximately 30 to 45 minutes postingestion. ER workup is fairly negative showing no evidence of leukocytosis, left shift, transaminitis, or hyperbilirubinemia. Ultrasound of the right upper quadrant shows gallstone in the neck of the gallbladder and technologist that reported positive Ennis sign. However, upon my exam patient's Ennis sign is negative and she describesthat application of pressure in the right upper quadrant just elicits more nausea for her. I discussed with her that the evidence for a stone in the gallbladder neck was noted in my independent review of her CT exam from 03/15/2025. This finding was reproduced with her ultrasound last week. I shared the persistence of the gallstone in the gallbladder neck is likely to continue to cause symptoms and ultimately I would recommend she consider cholecystectomy. However, I find no cause to recommend inpatient admission for urgent/emergent cholecystectomy. Instead, I recommend discharge to home with a restricted diet and will plan to follow-up with patient later this week to schedule outpatient cholecystectomy with intraoperative cholangiography at a relatively short interval. Patient confirms understanding appreciation. Emergency medicine beennotified of the plan as formulated. Rajinder Gold MD General Surgery Endocrine Surgery Pager: [facility] [address] [place] [address], [address] [place] [address] Office: [phone] Charges/Coding Visit Charges Office Visits / Consults: [id number] ED Visit; Moderate Severity 04/17/25 0144 <Electronically signed by Rajinder Gold MD> Cosigner Signature (if applicable): CC: ALDO Mann; Dr. Rajinder Gold MD~ Signed [facility] Work Phone: Hospital course Narrative No data available for this section [facility] Hospital Discharge instructions Additional Instructions Plenty of fluids and rest. Tylenol and Motrin. Fall with not improving. Return if worse.[facility] Work Phone: Hospital Discharge instructions No data available for this section [facility] Progress note No data available for this section [facility] Reason for referral (narrative)* Diagnostic Procedure Only (Routine) - Pending Review Specialty Diagnoses / Procedures Referred By Controsendo t Referred To Contact [facility] Diagnoses Encounter for gynecological examination (general) (routine) without abnormal findings Encounter for screening mammogram for breast cancer Procedures ERICA SCREENING W NAM SCREENING DIGITAL BREAST TOMOSYNTHESIS BI SCREENING MAMMOGRAPHY BI 2-VIEW BREAST INC CAD Dragan Portillo MD [address] [place] [address] [address] [place] [place] [address] Referral ID Status Reason Start Date Expiration Date Visits Requested Visits Authorized [id number] Pending Review Auto-Generat ed Referral 02/11/2022 03/13/2023 1 1 [facility] for referral (narrative)* Diagnostic Procedure Only (Routine) - Closed Specialty Diagnoses / Procedures Referred By Contac t Referred To Contact XR IMAGING Diagnoses Pain Procedures XR FOOT GENERAL 3V AP/LAT/OBL LEFT RADEX FOOT COMPLETE MINIMUM 3 VIEWS Cleveland Chauhan [address] [place] [address] Xr Imaging Referral ID Status Reason Start Date Expiration Date V isits Requested Visits Authorized [id number] Closed Auto-Generate d Referral 03/31/2022 04/30/2023 1 1 [facility] for referral (narrative)* Diagnostic Procedure Only (Routine) - Pending Review Specialty Diagnoses / Procedures Referred By Alfredo t Referred To Contact BR IMAGING Diagnoses Encounter for screening mammogram for breast cancer Procedures ERICA SCREENING SCREENING MAMMOGRAPHY BI 2-VIEW BREAST INC CAD Marycruz Mcclure MD [address] [place] [address] Br Imaging [address] [place] [address] Referral ID Status Reason Start Date Expiration Date Visits Requested Visits Authorized [id number] Pending Review Auto-Generat ed Referral 12/01/2023 12/30/2024 1 1 [facility] for referral (narrative)* Diagnostic Procedure Only (Routine) - Authorized Specialty Diagnoses / Procedures Referred By Alfredo Referred To Contact BR IMAGING Diagnoses Axillary pain, left Procedures US BREAST LTD LEFT US BREAST UNI REAL TIME WITH IMAGE LIMITED Lisha Castaneda APRN.CNP [address] [place] [address] Br Imaging [address] [place] [address] Referral ID Status Reason Start Date Expiration Date Visits Requested Visits Authorized [id number] Authorized Auto-Generat ed Referral 04/14/2024 05/14/2025 1 1 * Diagnostic Procedure Only (Routine) - Authorized Specialty Diagnoses / Procedures [facility]erred To Contact BR IMAG[facility] Diagnoses Axillary pain, left Procedures ERICA DIAGNOSTIC BILATERAL DIAGNOSTIC MAMMOGRAPHY COMPUTER-AIDED DETCJ BI Lisha Castaneda APRN.CNP [address] [place] [address] Br Imaging [address] [place] [address] Referral ID Status Reason Start Date Expiration Date Visits Requested Visits Authorized [id number] Authorized Auto-Generat ed Referral 04/14/2024 05/14/2025 1 1 [facility] for referral (narrative)* Diagnostic Procedure Only (Routine) - Closed Specialty Diagnoses / Procedures Referred By Contac t Referred To Contact BR IMAGING Diagnoses Axillary pain, left Procedures US BREAST LTD LEFT US BREAST UNI REAL TIME WITH IMAGE LIMITED Lisha Castaneda APRN.CNP [address] [place] [address] Br Imaging [address] [place] [address] Referral ID Status Reason Start Date Expiration Date V isits Requested Visits Authorized [id number] Closed Auto-Generate d Referral 04/14/2024 05/14/2025 1 1 [facility] for referral (narrative)* Outpatient Procedure (Routine) - Authorized Specialty Diagnoses / Procedures Referred By Contac t Referred To Contact [facility] Diagnoses Encounter for IUD insertion Endometriosis Menorrhagia with regular cycle Encounter for removal of intrauterine contraceptive device Procedures INSERT INTRAUTERINE DEVICE LEVONORGESTREL IU 52MG 5 YR INSERT INTRAUTERINE DEVICE REMOVE INTRAUTERINE DEVICE Dragan Portillo MD [address] [place] [address] [facility] [address] [place] [address] Referral ID Status Reason Start Date Expiration Date Visits Requested Visits Authorized [id number] Authorized Auto-Generat ed Referral 07/11/2024 11/14/2024 2 2 [facility] for referral (narrative)* Diagnostic Procedure Only (Routine) - Authorized Specialty Diagnoses / Procedures Referred By Contac t Referred To Contact [facility] Diagnoses Pelvic pain in female Abnormal uterine bleeding (AUB) Procedures PELVIC US WHI US PELVIC NONOBSTETRIC REAL-TIME IMAGE COMPLETE Dragan Portillo MD [address] [place] [address] [address] Referral ID Status Reason Start Date Expiration Date Visits Requested Visits Authorized [id number] Authorized Auto-Generat ed Referral 09/11/2025 1 1 [facility] for referral (narrative)* Outpatient Procedure (Routine) - Authorized Specialty Diagnoses / Procedures Referred By Contac t Referred To Contact [facility] Diagnoses Encounter for IUD removal Procedures REMOVE INTRAUTERINE DEVICE REMOVE INTRAUTERINE DEVICE Lisha Castaneda APRN.CNP [address] [place] [address] [address] Referral ID Status Reason Start Date Expiration Date Visits Requested Visits Authorized [id number] Authorized Auto-Generat ed Referral 09/15/2024 09/15/2025 1 1 * Diagnostic Procedure Only (Routine) - New Request Specialty Diagnoses / Procedures Referred By Contac t Referred To Contact [facility] Diagnoses Ovarian cyst, left Procedures PELVIC US WHI US PELVIC NONOBSTETRIC REAL-TIME IMAGE COMPLETE Lisha Castaneda APRN.CNP [address] [place] [address] [address] Referral ID Status Reason Start Date Expiration Date Visits Requested Visits Authorized [id number] New Request Auto-Generat ed Referral 03/15/2025 09/15/2025 1 1 [facility] for referral (narrative)No reason for referral information [facility]: Reason for visit Narrative* Diagnostic Procedure Only (Routine) - Closed Specialty Diagnoses / Procedures Referred By Contac t Referred To Contact XR IMAGING Diagnoses Pain Procedures XR FOOT GENERAL 3V AP/LAT/OBL LEFT RADEX FOOT COMPLETE MINIMUM 3 VIEWS Cleveland Chauhan [address] [place] [address] Xr Imaging Referral ID Status Reason Start Date Expiration Date V isits Requested Visits Authorized [id number] Closed Auto-Generate d Referral 03/31/2022 04/30/2023 1 1 [facility] for visit Narrative* Diagnostic Procedure Only (Routine) - Closed Specialty Diagnoses / Procedures Referred By Contac t Referred To Contact BR IMAGING Diagnoses Axillary pain, left Procedures ERICA DIAGNOSTIC BILATERAL DIAGNOSTIC MAMMOGRAPHY COMPUTER-AIDED DETCJ BI Lisha Castaneda APRN.CUTTING TOOL SHARPENER [address] [place] [address] [facility] Imaging [address] [place] [address] Referral ID Status Reason Start Date Expiration Date V isits Requested Visits Authorized [id number] Closed Auto-Generate d Referral 04/14/2024 05/14/2025 1 1 [facility] for visit Narrative* Diagnostic Procedure Only (Routine) - Closed Specialty Diagnoses / Procedures Referred By Contac t Referred To Contact [facility] Diagnoses Pelvic pain in female Abnormal uterine bleeding (AUB) Procedures PELVIC US I US PELVIC NONOBSTETRIC REAL-TIME IMAGE COMPLETE Dragan Portillo MD [address] [place] [address] [facility] [address] [place] [address] Referral ID Status Reason Start Date Expiration Date V isits Requested Visits Authorized [id number] Closed Auto-Generate d Referral 09/11/2024 09/11/2025 1 1 [facility] for visit Narrative* Outpatient Procedure (Routine) - Closed Specialty Diagnoses / Procedures Referred By Contac t Referred To Contact [facility] Diagnoses Encounter for IUD removal Procedures REMOVE INTRAUTERINE DEVICE REMOVE INTRAUTERINE DEVICE Lisha Castaneda, CARLOS.CUTTING TOOL SHARPENER [address] 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 Advance Directive(s) 07/12/2017 2:16 PM Advance Directive Response Recorded Date/ Time Living Will Yes March 27, 2022 1 2:32pm Power of Third Helper Yes March 27, 2022 12:32pm Advance Directive Response Recorded Date/ Time Living Will Yes May 14, 2023 5:38pm Power of Third Helper Yes May 14 5:38pm Name of Medical Power of Third Helper jorge nick May 14, 2023 5:38pm Advance Directive Response Recorded Date/ Time Living Will Yes May 14, 2023 4:38pm Power of Third Helper Yes May 14 4:38pm Advance Directive Response Recorded Date/ Time Living Will Yes May 14, 2023 5:38pm Power of Third Helper Yes May 14 5:38pm Advance Directive Response Recorded Date/ Time Do you have a Healthcare Power of Third Helper? Yes March 15, 2025 11:24pm Do you have a Healthcare Power of Third Helper? Yes April 16, 2025 9:52pm Name of Medical Power of Third Helper jorge April 16, 2025 9:52pm Medications Administered Section Inactive Administered Medications - [...] 5 mg, INTRA-ARTICULAR, ONCE, 1 dose, On 05/27/22 at 0900 Given 05/27/2022 12:43 PM EDT 5 mg Foot , Left Chief Complaint and Reason for Visit Chief Complaint Back pain Back pain Back pain Back pain Back pain Adjustment Segmental and somatic dysfunction of lumbar region Back pain Back pain Reason for Visit Herniation of lumbar intervertebral disc with radiculopathy Segmental and somatic dysfunction of lumbar region Segmental and somatic dysfunction of pelvic region Segmental and somatic dysfunction of thoracic region Herniation of lumbar intervertebral disc with radiculopathy Segmental and somatic dysfunction of lumbar region Segmental and somatic dysfunction of pelvic region Segmental and somatic dysfunction of thoracic region Herniation of lumbar intervertebral disc with radiculopathy Segmental and somatic dysfunction of lumbar region Segmental and somatic dysfunction of pelvic region Herniation of lumbar intervertebral disc with radiculopathy Segmental and somatic dysfunction of cervical region Segmental and somatic dysfunction of lumbar region Segmental and somatic dysfunction of pelvic region Segmental and somatic dysfunction of thoracic region Herniation of lumbar intervertebral disc with radiculopathy Segmental and somatic dysfunction of cervical region Segmental and somatic dysfunction of lumbar region Segmental and somatic dysfunction of pelvic region Segmental and somatic dysfunction of thoracic region Herniation of lumbar intervertebral disc with radiculopathy Segmental and somatic dysfunction of lumbar region Segmental and somatic dysfunction of pelvic region Segmental and somatic dysfunction of thoracic region Herniation of lumbar intervertebral disc with radiculopathy Segmental and somatic dysfunction of cervical region Segmental and somatic dysfunction of lumbar region Segmental and somatic dysfunction of pelvic region Segmental and somatic dysfunction of thoracic region Herniation of lumbar intervertebral disc with radiculopathy Segmental and somatic dysfunction of cervical region Segmental and somatic dysfunction of lumbar region Segmental and somatic dysfunction of pelvic region Segmental and somatic dysfunction of thoracic region Chief Complaint headache yest now rt eye droop when woke up today Chief Complaint REEVAL Back pain BACK PAIN Back pain Back pain LUMBAR/PELVIC SEGMENTAL SOMATIC DYSFUNC/RADIC. RX BACK PAIN Reason for Visit Segmental and somati c dysfunction of lumbar region Segmental and somatic dysfunction of pelvic region Segmental and somatic dysfunction of thoracic region Herniation of lumbar intervertebral disc with radiculopathy Segmental and somatic dysfunction of lumbar region Segmental and somatic dysfunction of pelvic region Herniation of lumbar intervertebral disc with radiculopathy Segmental and somatic dysfunction of lumbar region Segmental and somatic dysfunction of pelvic region Segmental and somatic dysfunction of thoracic region Herniation of lumbar intervertebral disc with radiculopathy Segmental and somatic dysfunction of lumbar region Segmental and somatic dysfunction of pelvic region Segmental and somatic dysfunction of thoracic region Herniation of lumbar intervertebral disc with radiculopathy Segmental and somatic dysfunction of lumbar region Segmental and somatic dysfunction of pelvic region Segmental and somatic dysfunction of thoracic region Herniation of lumbar intervertebral disc with radiculopathy Chief Complaint Back pain BACK PAIN Back pain LUMBAR/PELVIC SEGMENTAL SOMATIC DYSFUNC/RADIC. RX Back pain BACK PAIN Back pain Reason for Visit Segmental and somati c dysfunction of lumbar region Segmental and somatic dysfunction of pelvic region Herniation of lumbar intervertebral disc with radiculopathy Segmental and somatic dysfunction of lumbar region Segmental and somatic dysfunction of pelvic region Segmental and somatic dysfunction of thoracic region Herniation of lumbar intervertebral disc with radiculopathy Segmental and somatic dysfunction of lumbar region Segmental and somatic dysfunction of pelvic region Segmental and somatic dysfunction of thoracic region Herniation of lumbar intervertebral disc with radiculopathy Segmental and somatic dysfunction of lumbar region Segmental and somatic dysfunction of pelvic region Segmental and somatic dysfunction of thoracic region Herniation of lumbar intervertebral disc with radiculopathy Segmental and somatic dysfunction of lumbar region Segmental and somatic dysfunction of pelvic region Segmental and somatic dysfunction of thoracic region Herniation of lumbar intervertebral disc with radiculopathy Chief Complaint Admit Date abd pain March 15, 2025 10:57p m gallbladder-family hx colon cancer March 162024 1:23pm RUQ PAIN,NAUSEA April 12, 2025 7:19a m ABD PAIN April 16, 2025 6:09p m ABD PAIN April 17, 2025 1:30a m Reason for Visit Admit Date Abdominal pain April 06, 2025 1:23p m Diarrhea April 06, 2025 1:23p m Overflow diarrhea April 06, 2025 1:23p m Chief Complaint Admit Date abd pain March 15, 2025 10:57p m gallbladder-family hx colon cancer March 162024 1:23pm RUQ PAIN,NAUSEA April 12, 2025 7:19a m ABD PAIN April 16, 2025 6:09p m ABD PAIN April 17, 2025 1:30a m ER F/U- GALLBLADDER April 20, 2025 12:28 pm Family History No Family History Records Found Relationship Condition Age at Onset Recorded Date/T alva Not Specified Osteoporosis Unknown Alcoholism Unknown Cardiac disease Unknown Disorder of thyroid Unknown Cerebrovascular accident (CVA) Unknown Health Concerns Infection Onset Date Last Indicated Resolved Time COVID-19 Rule-Out 10/11/2023 10/11/2023 Summary Purpose Reason for Referral Specialty Diagnoses / Procedures Referred By Contac t Referred To Contact MR IMAGING Diagnoses Pelvic and perineal pain Ovarian cyst, right Dysmenorrhea Deep dyspareunia Endometriosis Menorrhagia with regular cycle Procedures MRI FEMALE PELVIS WO/W IVCON MRI PELVIS W/O & W/CONTRAST MATERIAL Berhane Ferrell APRN.CUTTING TOOL SHARPENER [address] [place] [address] Mr Imaging [place] [address] Referral ID Status Reason Start Date Expiration Date Visits Requested Visits Authorized [id number] Authorized Auto-Generat ed Referral 4 11/26/2025 1 1 Specialty Diagnoses / Procedures Referred By Contac t Referred To Contact Diagnoses Endometriosis Menorrhagia with regular cycle Procedures CONSULT TO MINIMALLY INVASIVE GYNECOLOGIC SURGERY OFFICE/OUTPATIENT [facility] 60 MINUTES Dragan Portillo MD [address] [place] [address] Referral ID Status Reason Start Date Expiration Date Visits Requested Visits Authorized [id number] Authorized PCP Requested Referral Auto-Generate d Referral 4 10/02/2025 1 1 Additional Source Comments Source Comments (unrecognize d section and content) In the event this informatio n is protected by the Federal Confidentiality of Alcohol and Drug Abuse Patient Records regulations: The Federal rules restrict any use of the information to criminally investigate or prosecute any alcohol or drug abuse patient.[facility] the event this information is protected by the Federal Confidentiality of Alcohol and Drug Abuse Patient Records regulations: The Federal rules restrict any use of the information to criminally investigate or prosecute any alcohol or drug abuse patient.[facility] the event this information is protected by the Federal Confidentiality of Alcohol and Drug Abuse Patient Records regulations: The Federal rules restrict any use of the information to criminally investigate or prosecute any alcohol or drug abuse patient.[facility] the event this information is protected by the Federal Confidentiality of Alcohol and Drug Abuse Patient Records regulations: The Federal rules restrict any use of the information to criminally investigate or prosecute any alcohol or drug abuse patient.[facility] the event this information is protected by the Federal Confidentiality of Alcohol and Drug Abuse Patient Records regulations: The Federal rules restrict any use of the information to criminally investigate or prosecute any alcohol or drug abuse patient.[facility] the event this information is protected by the Federal Confidentiality of Alcohol and Drug Abuse Patient Records regulations: The Federal rules restrict any use of the information to criminally investigate or prosecute any alcohol or drug abuse patient.[facility] the event this information is protected by the Federal Confidentiality of Alcohol and Drug Abuse Patient Records regulations: The Federal rules restrict any use of the information to criminally investigate or prosecute any alcohol or drug abuse patient.[facility] the event this information is protected by the Federal Confidentiality of Alcohol and Drug Abuse Patient Records regulations: The Federal rules restrict any use of the information to criminally investigate or prosecute any alcohol or drug abuse patient.[facility] the event this information is protected by the Federal Confidentiality of Alcohol and Drug Abuse Patient Records regulations: The Federal rules restrict any use of the information to criminally investigate or prosecute any alcohol or drug abuse patient.[facility] the event this information is protected by the Federal Confidentiality of Alcohol and Drug Abuse Patient Records regulations: The Federal rules restrict any use of the information to criminally investigate or prosecute any alcohol or drug abuse patient.[facility] the event this information is protected by the Federal Confidentiality of Alcohol and Drug Abuse Patient Records regulations: The Federal rules restrict any use of the information to criminally investigate or prosecute any alcohol or drug abuse patient.[facility] Center[facility] the event this information is protected by the Federal Confidentiality of Alcohol and Drug Abuse Patient Records regulations: The Federal rules restrict any use of the information to criminally investigate or prosecute any alcohol or drug abuse patient.[facility] the event this information is protected by the Federal Confidentiality of Alcohol and Drug Abuse Patient Records regulations: The Federal rules restrict any use of the information to criminally investigate or prosecute any alcohol or drug abuse patient.[facility] CenterIn the event this information is protected by the Federal Confidentiality of Alcohol and Drug Abuse Patient Records regulations: The Federal rules restrict any use of the information to criminally investigate or prosecute any alcohol or drug abuse patient.[facility] CenterIn the event this information is protected by the Federal Confidentiality of Alcohol and Drug Abuse Patient Records regulations: The Federal rules restrict any use of the information to criminally investigate or prosecute any alcohol or drug abuse patient.[facility] Center[facility] the event this information is protected by the Federal Confidentiality of Alcohol and Drug Abuse Patient Records regulations: The Federal rules restrict any use of the information to criminally investigate or prosecute any alcohol or drug abuse patient.[facility] CenterIn the event this information is protected by the Federal Confidentiality of Alcohol and Drug Abuse Patient Records regulations: The Federal rules restrict any use of the information to criminally investigate or prosecute any alcohol or drug abuse patient.[facility] CenterIn the event this information is protected by the Federal Confidentiality of Alcohol and Drug Abuse Patient Records regulations: The Federal rules restrict any use of the information to criminally investigate or prosecute any alcohol or drug abuse patient.[facility] CenterIn the event this information is protected by the Federal Confidentiality of Alcohol and Drug Abuse Patient Records regulations: The Federal rules restrict any use of the information to criminally investigate or prosecute any alcohol or drug abuse patient.[facility] CenterIn the event this information is protected by the Federal Confidentiality of Alcohol and Drug Abuse Patient Records regulations: The Federal rules restrict any use of the information to criminally investigate or prosecute any alcohol or drug abuse patient.[facility] CenterIn the event this information is protected by the Federal Confidentiality of Alcohol and Drug Abuse Patient Records regulations: The Federal rules restrict any use of the information to criminally investigate or prosecute any alcohol or drug abuse patient.[facility] CenterIn the event this information is protected by the Federal Confidentiality of Alcohol and Drug Abuse Patient Records regulations: The Federal rules restrict any use of the information to criminally investigate or prosecute any alcohol or drug abuse patient.[facility] CenterIn the event this information is protected by the Federal Confidentiality of Alcohol and Drug Abuse Patient Records regulations: The Federal rules restrict any use of the information to criminally investigate or prosecute any alcohol or drug abuse patient.[facility] CenterIn the event this information is protected by the Federal Confidentiality of Alcohol and Drug Abuse Patient Records regulations: The Federal rules restrict any use of the information to criminally investigate or prosecute any alcohol or drug abuse patient.[facility] CenterIn the event this information is protected by the Federal Confidentiality of Alcohol and Drug Abuse Patient Records regulations: The Federal rules restrict any use of the information to criminally investigate or prosecute any alcohol or drug abuse patient.[facility] CenterIn the event this information is protected by the Federal Confidentiality of Alcohol and Drug Abuse Patient Records regulations: The Federal rules restrict any use of the information to criminally investigate or prosecute any alcohol or drug abuse patient.[facility] CenterIn the event this information is protected by the Federal Confidentiality of Alcohol and Drug Abuse Patient Records regulations: The Federal rules restrict any use of the information to criminally investigate or prosecute any alcohol or drug abuse patient.[facility] CenterIn the event this information is protected by the Federal Confidentiality of Alcohol and Drug Abuse Patient Records regulations: The Federal rules restrict any use of the information to criminally investigate or prosecute any alcohol or drug abuse patient.[facility] the event this information is protected by the Federal Confidentiality of Alcohol and Drug Abuse Patient Records regulations: The Federal rules restrict any use of the information to criminally investigate or prosecute any alcohol or drug abuse patient.[facility] Center[facility] the event this information is protected by the Federal Confidentiality of Alcohol and Drug Abuse Patient Records regulations: The Federal rules restrict any use of the information to criminally investigate or prosecute any alcohol or drug abuse patient.[facility] Center[facility] the event this information is protected by the Federal Confidentiality of Alcohol and Drug Abuse Patient Records regulations: The Federal rules restrict any use of the information to criminally investigate or prosecute any alcohol or drug abuse patient.[facility] CenterIn the event this information is protected by the Federal Confidentiality of Alcohol and Drug Abuse Patient Records regulations: The Federal rules restrict any use of the information to criminally investigate or prosecute any alcohol or drug abuse patient.[facility] CenterIn the event this information is protected by the Federal Confidentiality of Alcohol and Drug Abuse Patient Records regulations: The Federal rules restrict any use of the information to criminally investigate or prosecute any alcohol or drug abuse patient.[facility] Center[facility] the event this information is protected by the Federal Confidentiality of Alcohol and Drug Abuse Patient Records regulations: The Federal rules restrict any use of the information to criminally investigate or prosecute any alcohol or drug abuse patient.[facility] Reason for Visit (unrecogniz ed section and content) Reason Comments Yearly Exam Reason Comments Pain Reason Comments Follow Up Pain Reason Comments Established Patient Pain Follow Up Reason Comments Established Patient Follow Up Pain Reason Comments Menstrual Problem Reason Comments schedule surgery Reason Comments Yearly Exam Reason Comments Refill Request Reason Comments Sore Throat swollen glands and b odyaches x 2 days Reason Onset Date Comments Refill Request 02/28/2024 Reason Comments Well Woman Reason Onset Date Comments Refill Request 04/20/2024 Reason Comments Radiology US Specialty Diagnoses / Procedures Referred By Alfredo hogan Referred To Contact [facility] Diagnoses Axillary pain, left Procedures US BREAST LTD LEFT US BREAST UNI REAL TIME WITH IMAGE LIMITED Lisha Castaneda APRN.CUTTING TOOL SHARPENER [address] [place] [address] [facility] [address] [place] [address] Referral ID Status Reason Start Date Expiration Date V isits Requested Visits Authorized [id number] Closed Auto-Generate d Referral 04/14/2024 05/14/2025 1 1 Reason Comments Results Reason Comments Conjunctivitis Reason Comments Menstrual Problem Reason Onset Date Comments Insertion Of IUD 07/14/2024 Specialty Diagnoses / Procedures Referred By Alfredo hogan [facility] Diagnoses Encounter for IUD insertion Endometriosis Menorrhagia with regular cycle Encounter for removal of intrauterine contraceptive device Procedures INSERT INTRAUTERINE DEVICE LEVONORGESTREL IU 52MG 5 YR INSERT INTRAUTERINE DEVICE REMOVE INTRAUTERINE DEVICE Dragan Portillo MD [address] [place] [address] [facility] [address] [place] [address] Referral ID Status Reason Start Date Expiration Date Visits Requested Visits Authorized [id number] Authorized Auto-Generat ed Referral 07/11/2024 11/14/2024 2 2 Reason Comments IUD Reason Comments Results Reason Comments Patient Question Reason Comments Endometriosis Reason Comments Radiology MRI Specialty Diagnoses / Procedures Referred By Contac t Referred To Contact [facility] Diagnoses Pelvic and perineal pain Ovarian cyst, right Dysmenorrhea Deep dyspareunia Endometriosis Menorrhagia with regular cycle Procedures MRI FEMALE PELVIS WO/W IVCON MRI PELVIS W/O & W/CONTRAST MATERIAL Berhane Ferrell APRN.[facility] [address] [place] [address] Mr Imaging [id number] Referral ID Status Reason Start Date Expiration Date V isits Requested Visits Authorized [id number] Closed Auto-Generate d Referral 10/27/2024 11/26/2025 1 1 Care Teams (unrecognized sec tion and content) Delinquent Notice Machine Operator Relationship Specialty Start Date End Date Marycruz Mcclure MD [address] [place] [address] PCP - General Family Practice 05/02/21 Lucie Lucio LPN LPN 02/28/15 Delinquent Notice Machine Operator Relationship Specialty Start Date End Date Marycruz Mcclure MD [address] [place], [place] [id number] PCP - General Family Practice 05/02/21 Lucie Lucio LPN LPN 02/28/15 Delinquent Notice Machine Operator Relationship Specialty Start Date End Date Marycruz Mcclure MD [address] [place], [place] [id number] PCP - General Family Practice 05/02/21 Lucie Lucio LPN TOW TRUCK DISPATCHER 02/28/15 Delinquent Notice Machine Operator Relationship Specialty Start Date End Date Marycruz Mcclure MD [address] [facility] [place] [address] PCP - General Family Practice 05/02/21 Lucie Lucio LPN LPN 02/28/15 Delinquent Notice Machine Operator Relationship Specialty Start Date End Date Marycruz Mcclure MD [address] [facility] [place] [address] PCP - General Family Medicine 05/02/21 Lucie Lucio LPN LPN 02/28/15 Delinquent Notice Machine Operator Relationship Specialty Start Date End Date Marycruz Mcclure MD [address] [facility] [place] [address] PCP - General Family Medicine 05/02/21 Lucie Lucio LPN LPN 02/28/15 Delinquent Notice Machine Operator Relationship Specialty Start Date End Date Marycruz Mcclure MD [address] [facility] [place] [address] PCP - General Family Medicine 05/02/21 Lucie Lucio LPN LPN 02/28/15 Delinquent Notice Machine Operator Relationship Specialty Start Date End Date Marycruz Mcclure MD [address] [facility] [place] [address] PCP - General Family Medicine 05/02/21 Lucie Lucio LPN LPN 02/28/15 Team Status: Active Member Role Status Dates No Primary Care Physician Family Provider Active Prachi Millerlogjulián TEXTILE MACHINERY INSTRUCTOR, TEXTILE MACHINERY INSTRUCTOR-C Primary Care Provider Active Team Status: Inactive Member Role Status Dates Prachi Podlogar TEXTILE MACHINERY INSTRUCTOR, TEXTILE MACHINERY INSTRUCTOR-C Primary Care Provider, Referri ng Provider Active Dr. Marissa Baires DC Attending Provider Active Team Status: Inactive Member Role Status Dates Prachi Millerlogar TEXTILE MACHINERY INSTRUCTOR, TEXTILE MACHINERY INSTRUCTOR-C Primary Care Provider Active Dr. Marissa Baires DC Attending Provider, Referring Pro vider Active Delinquent Notice Machine Operator Relationship Specialty Start Date End Date Marycruz Mcclure MD [address] [facility] [place] [address] PCP - General Family Medicine 05/02/21 Lucie Lucio LPN TOW TRUCK DISPATCHER 02/28/15 Delinquent Notice Machine Operator Relationship Specialty Start Date End Date Marycruz Mcclure MD [address] [facility] [place] [address] PCP - General Family Medicine 05/02/21 Lucie Lucio TOW TRUCK DISPATCHER TOW TRUCK DISPATCHER 02/28/15 Team Status: Inactive Member Role Status Dates Prachi Hatch TEXTILE MACHINERY INSTRUCTOR, TEXTILE MACHINERY INSTRUCTOR-C Primary Care Provider Active Dr. Jorge Lopez MD Emergency Provider Active Delinquent Notice Machine Operator Relationship Specialty Start Date End Date Marycruz Mcclure MD [address] [place] [address] PCP - General Family Medicine 05/02/21 Lucie Lucio LPN TOW TRUCK DISPATCHER 02/28/15 Delinquent Notice Machine Operator Relationship Specialty Start Date End Date Marycruz Mcclure MD [address] [place] [address] PCP - General Family Medicine 05/02/21 Lucie Lucio LPN TOW TRUCK DISPATCHER 02/28/15 Delinquent Notice Machine Operator Relationship Specialty Start Date End Date Marycruz Mcclure MD [address] [facility] [place] [address] PCP - General Family Medicine 05/02/21 Lucie Lucio LPN TOW TRUCK DISPATCHER 02/28/15 Team Status: Active Member Role Status Dates Prachi Hatch TEXTILE MACHINERY INSTRUCTOR, TEXTILE MACHINERY INSTRUCTOR-C Primary Care Provider Active Dr. Marissa Baires DC Attending Provider, Referring Pro vider Active Team Status: Inactive Member Role Status Dates Prachi Hatch TEXTILE MACHINERY INSTRUCTOR, TEXTILE MACHINERY INSTRUCTOR-C Primary Care Provider Active Dr. Marissa Dossi , [place] Attending Provider, Referring Pro vider Active Dr. Adam Adams , DO Other Provider Active Delinquent Notice Machine Operator Relationship Specialty Start Date End Date Marycruz Mcclure MD [address] [facility] [place] [address] PCP - General Family Medicine 05/02/21 Lucie Lucio LPN LPN 02/28/15 Delinquent Notice Machine Operator Relationship Specialty Start Date End Date Marycruz Mcclure MD [address] [facility] [place] [address] PCP - General Family Medicine 05/02/21 Lucie Lucio LPN LPN 02/28/15 Delinquent Notice Machine Operator Relationship Specialty Start Date End Date Marycruz Mcclure MD [address] [facility] [place] [address] PCP - General Family Medicine 05/02/21 Lucie Lucio LPN LPN 02/28/15 Delinquent Notice Machine Operator Relationship Specialty Start Date End Date Marycruz Mcclure MD [address] [facility] [place] [address] PCP - General Family Medicine 05/02/21 Lucie Lucio LPN LPN 02/28/15 Delinquent Notice Machine Operator Relationship Specialty Start Date End Date Marycruz Mcclure MD [address] [facility] [address] PCP - General Family Medicine 05/02/21 Lucie Lucio LPN LPN 02/28/15 Delinquent Notice Machine Operator Relationship Specialty Start Date End Date Marycruz Mcclure MD [address] [facility] [place] [address] PCP - General Family Medicine 05/02/21 Lucie Lucio LPN LPN 02/28/15 Delinquent Notice Machine Operator Relationship Specialty Start Date End Date Marycruz Mcclure MD [address] [facility] [place] [address] PCP - General Family Medicine 05/02/21 Lucie Lucio LPN LPN 02/28/15 Delinquent Notice Machine Operator Relationship Specialty Start Date End Date Marycruz Mcclure MD [address] [facility] [place] [address] PCP - General Family Medicine 05/02/21 Lucie Lucio LPN LPN 02/28/15 Delinquent Notice Machine Operator Relationship Specialty Start Date End Date Marycruz Mcclure MD [address] [facility] [place] [address] PCP - General Family Medicine 05/02/21 Lucie Lucio LPN LPN 02/28/15 Delinquent Notice Machine Operator Relationship Specialty Start Date End Date Marycruz Mcclure MD [address] [facility] [place] [address] PCP - General Family Medicine 05/02/21 Lucie Lucio LPN LPN 02/28/15 Delinquent Notice Machine Operator Relationship Specialty Start Date End Date Marycruz Mcclure MD [address] [facility] [place] [address] PCP - General Family Medicine 05/02/21 Lucie Lucio LPN LPN 02/28/15 Delinquent Notice Machine Operator Relationship Specialty Start Date End Date Marycruz Mcclure MD [address] [facility] [place] [address] PCP - General Family Medicine 05/02/21 Lucie Lucio LPN LPN 02/28/15 Delinquent Notice Machine Operator Relationship Specialty Start Date End Date Marycruz Mcclure MD [address] [facility] [place] [address] PCP - General Family Medicine 05/02/21 Lucie Lucio LPN LPN 02/28/15 Delinquent Notice Machine Operator Relationship Specialty Start Date End Date Marycruz Mcclure MD [address] [facility] [place] [address] PCP - General Family Medicine 05/02/21 Lucie Lucio LPN LPN 02/28/15 Podlogar, Prachi, AGRICULTURAL CONSULTANT.CUTTING TOOL SHARPENER [address] [facility] [place] [address] Television Servicer [facility] 10/21/24 Delinquent Notice Machine Operator Relationship Specialty Start Date End Date Marycruz Mcclure MD [address] [facility] [place] [address] PCP - General Family Medicine 05/02/21 Lucie Lucio LPN LPN 02/28/15 Podlogar, Prachi, AGRICULTURAL CONSULTANT.CUTTING TOOL SHARPENER [address] [facility] [place] [address] [facility] 10/21/24 Team Status: Active Member Role Status Dates Dolores Mann TEXTILE MACHINERY INSTRUCTOR, TEXTILE MACHINERY INSTRUCTOR-C Primary Care Provider Active Team Status: Inactive Member Role Status Dates Dolores Mann TEXTILE MACHINERY INSTRUCTOR, TEXTILE MACHINERY INSTRUCTOR-C Primary Care Provider Active Start: March 15, 2025 End: March 16, 2025 Dr. Austin Rhodes , DO Attending Provider Active S tart: March 15, 2025 End: March 16, 2025 Dr. Austin Rhodes , DO Emergency Provider Active S tart: March 15, 2025 End: March 16, 2025 Team Status: Inactive Member Role Status Dates Dolores Mann TEXTILE MACHINERY INSTRUCTOR, TEXTILE MACHINERY INSTRUCTOR-C Primary Care Provider Active Start: April 06, 2025 End: April 06, 2025 Dolores Mann TEXTILE MACHINERY INSTRUCTOR, TEXTILE MACHINERY INSTRUCTOR-C Referring Provider Active Start: April 06, 2025 End: April 06, 2025 Park Walters TEXTILE MACHINERY INSTRUCTOR-C Attending Provider Active S tart: April 06, 2025 End: April 06, 2025 Team Status: Active Member Role Status Dates Dolores Mann TEXTILE MACHINERY INSTRUCTOR, TEXTILE MACHINERY INSTRUCTOR-C Primary Care Provider Active Start: April 12, 2025 Park Walters TEXTILE MACHINERY INSTRUCTOR-C Attending Provider Active S tart: April 12, 2025 Park Walters , TEXTILE MACHINERY INSTRUCTOR-C Referring Provider Active S tart: April 12, 2025 Team Status: Inactive Member Role Status Dates Dolores Mann TEXTILE MACHINERY INSTRUCTOR, TEXTILE MACHINERY INSTRUCTOR-C Primary Care Provider Active Start: April 16, 2025 End: April 17, 2025 Dr. Kaiser Bean DO Referring Provider Active Start: April 16, 2025 End: April 17, 2025 Dr. Kaiser Bean DO Emergency Provider Active Start: April 16, 2025 End: April 17, 2025 Team Status: Active Member Role Status Dates Dolores Mann TEXTILE MACHINERY INSTRUCTOR, TEXTILE MACHINERY INSTRUCTOR-C Primary Care Provider Active Start: April 17, 2025 Dr. Kaiser Bean DO Referring Provider Active Start: April 17, 2025 Dr. Kaiser Bean DO Emergency Provider Active Start: April 17, 2025 Dr. Rajinder Gold MD Attending Provider Active Start: April 17, 2025 Team Status: Inactive Member Role Status Dates Dolores Mann TEXTILE MACHINERY INSTRUCTOR, TEXTILE MACHINERY INSTRUCTOR-C Primary Care Provider Active Start: April 12, 2025 End: April 12, 2025 Park Walters TEXTILE MACHINERY INSTRUCTOR-C Attending Provider Active S tart: April 12, 2025 End: April 12, 2025 Park Walters TEXTILE MACHINERY INSTRUCTOR-C Referring Provider Active S tart: April 12, 2025 End: April 12, 2025 Team Status: Inactive Member Role Status Dates Dolores Mann NP, TEXTILE MACHINERY INSTRUCTOR-C Primary Care Provider Active Start: April 16, 2025 End: April 17, 2025 Dr. Kaiser Bean DO Attending Provider Active Start: April 16, 2025 End: April 17, 2025 Dr. Kaiser Bean DO Referring Provider Active Start: April 16, 2025 End: April 17, 2025 Dr. Kaiser Bean DO Emergency Provider Active Start: April 16, 2025 End: April 17, 2025 Team Status: Inactive Member Role Status Dates Dolores Mann NP, TEXTILE MACHINERY INSTRUCTOR-C Primary Care Provider Active Start: April 20, 2025 End: April 20, 2025 Dolores Mann NP, TEXTILE MACHINERY INSTRUCTOR-C Referring Provider Active Start: April 20, 2025 End: April 20, 2025 Dr. Rajinder Gold MD Attending Provider Active Start: April 20, 2025 End: April 20, 2025 INFORMATION SOURCE (unrecogn ized section and content) DATE CREATED AUTHOR 02/24/2024 [facility] DATE CREATED AUTHOR AUTHOR'S ORGANIZ ATION 07/09/2024 [facility] ([place]) DATE CREATED AUTHOR AUTHOR'S ORGANIZ ATION 12/05/2024 [facility] DATE CREATED AUTHOR AUTHOR'S ORGANIZ ATION 04/24/2025 [facility] FOR RECORDS PERTAINING TO PATIENTS WHO ARE [...] BE BASED ON THE PRIMARY CLINICAL RECORDS. [facility]. provides no warranty or guarantee of the accuracy or completeness of information in this document.
--- NOTE | 2025-04-25 06:16 | EKG12_ITS ---
Test Reason : PREOP Blood Pressure : */* mmHG Vent. Rate : 82 BPM Atrial Rate : 82 BPM P-R Int : 160 ms QRS Dur : 80 ms QT Int : 404 ms P-R-T Axes : 67 23 36 degrees QTcB Int : 472 ms Normal sinus rhythm Low voltage QRS Borderline ECG When compared with ECG of 07-Jul-2024 09:06, No significant change was found Confirmed by Rajinder Potts ([id number]), managing editor ERNIE MITCHELL ([id number]) on 04/26/2025 1:16:46 PM Referred By: Rajinder Gold Confirmed By: Rajinder Potts
[2025-04-25 06:28] LABS: Internal QC Validated? YES +Cl - CLEAR BKGD; Pregnancy, Urine Negative Negative
[2025-04-25] MEDS: Lactated Ringers 1,000 ML 30 ML IV (06:46)
--- NOTE | 2025-04-25 06:49 | PRE.ANES_ITS ---
ASA Classification* ASA Classification ASA Classification: 2 Assessment & Plan Anesthesia* Anesthesia Assessment Anesthesia Assessment: Discussed sedation and/or anesthesia options, risks, benefits, and alternatives with patient/parents/legal guardian/POA. Questions invited. The patient/parents/legal guardian/POA seems to understand and agrees to proceed with anesthesia plan. Reviewed the physical assessment, medical history, allergy history and patient home medications list prior to surgery/procedure/anesthetic and documented any changes. Performed airway and anesthesia risk assessments. Anesthesia Type Anesthesia Type: General Anesthesia Focused Assessment* Temperature: 99.6 F Pulse Rate: 82 Blood Pressure: 109/77 Respiratory Rate: 14 Pulse Ox: 100 Airway Assessment Mouth opens: >3 cm Mallampati Score: II Labs Anesthesia Preop lab: CBC WBC 7.9 K/mm3 (4.4-11.0) 04/16/25 18:51 04/16/25 RBC 4.46 M/mm3 (4.2-5.4) 04/16/25 18:51 04/16/25 Hgb 12.9 g/dL (12.0-15.0) 04/16/25 18:51 04/16/25 Hct 39.8 % (37-47) 04/16/25 18:51 04/16/25 Plt Count 267 K/mm3 (150-450) 04/16/25 18:51 04/16/25 CHEMISTRY Potassium 4.1 mmol/L (3.3-5.1) 04/16/25 18:51 04/16/25 Sodium 139 mmol/L (133-145) 04/16/25 18:51 04/16/25 Magnesium 2.3 mg/dL (1.6-2.6) 07/07/24 09:22 07/07/24 BUN 13 mg/dL (4-19) 04/16/25 18:51 04/16/25 Creatinine 0.93 mg/dL (0.70-1.20) 04/16/25 18:51 04/16/25 Glucose 92 mg/dL (70-99) 04/16/25 18:51 04/16/25 POC Glucose 142 mg/dL (74-106) H 07/18/24 12:53 07/18/24 COAG Urine Test Negative Negative 04/25/25 06:20 04/25/25 Pre-Assessment Diagnosis/Proposed Procedure Planned Operative Procedure(s): (N/A) Laparoscopic, Cholecystectomy with IOC Anesthesia History Anesthesia History - director of housing: Anesthesia History - director of housing Hx Hospitalization Yes: 07/2024 BACK SURGERY 04/23/25 08:32 Any Problems With Anesthesia No 04/23/25 08:32 Cholinesterase deficiency No 04/23/25 08:32 You/Your Family Experience No 04/23/25 08:32 fever (hyperthermia) with Relationship Recent Exposure to Contagious No 04/25/25 06:41 Disease Does patient have nerve No 04/23/25 08:32 stimulator Patient instructed to have device shut off --Does patient have Pacemaker or ICD? When Was Last Pacemaker Check QUESTION #4 FULL TEXT: You/Your Family Experience fever (hyperthermia) with Anesthesia Last Oral Intake Last Oral intake: Last Oral Intake NPO since Meds taken in AM with sips of water? Meds patient instructed to take am of surgery PONV PONV - director of housing: PONV - director of housing Female Yes 04/23/25 08:32 HX of Motion Sickness No 04/23/25 08:32 HX of N/V After Surgery No 04/23/25 08:32 Non-Smoker Yes 04/23/25 08:32 Duration of Surgery greater Yes 04/23/25 08:32 than 60 minutes Number of Risk Factors 3 04/23/25 08:32 PONV Score Moderate Risk 04/23/25 08:32 Height & Weight Height & Weight: Anesthesia: Height & Weight Height 5 ft 4 in 04/25/25 06:41 Weight: 67 kg 04/25/25 06:41 Body Mass Index (BMI) 25.3 04/25/25 06:41 Respiratory Assessment Respiratory Assessment - director of housing: Respiratory Tract Infection Hx - director of housing Hx Respiratory Tract Infection No 04/23/25 08:32 STOP Sleep Apnea STOP Sleep Apnea - director of housing: STOP Sleep Apnea - director of housing Hx Hypertension No 04/23/25 08:32 Hx Sleep Apnea No 04/23/25 08:32 CPAP BIPAP Do you snore loudly (louder No 04/23/25 08:32 than talking or can be heard Do you often feel tired/ No 04/23/25 08:32 fatigued/ sleepy during daytime? Has anyone observed you stop No 04/23/25 08:32 breathing during sleep? STOP Results Negative 04/23/25 08:32 QUESTION #5 FULL TEXT : Do you snore loudly (louder than talking or can be heard through closed doors)? Tobacco Use History Tobacco Use History - director of housing: Tobacco Use History - director of housing Tobacco Use Smoking Status Former smoker 04/23/25 08:32 Hx Tobacco Use No 04/23/25 08:32 Years Smoking Packs Smoked per Day Smoking Cessation Date was No - quit smoking greater 04/23/25 08:32 within the last 15 years than 15 years ago Hx Smoking Cessation Date 04/15/08 04/23/25 08:32 Hx Smoking Cessation No 04/23/25 08:32 Counseling Hematologic Medial History Hematologic Hx - director of housing: Hematologic Medical Hx - commercial photographer Hx of Blood Transfusion No 04/23/25 08:32 Hx of Transfusion in last 3 No 04/23/25 08:32 Months Date of Last Transfusion (if within last 3 months) Ever experience any problems No 04/23/25 08:32 with transfusion(s)? Specify any problems Hx of Preganancy in last 3 No 04/23/25 08:32 Months Nurse Filling Out Transfusion MGRIFFITH 04/23/25 08:32 & Questions: Date: 04/23/25 04/23/25 08:32 Time: 08:34 04/23/25 08:32 Patient unable to answer at this time (ie. confused, unrespo /Reproduction History /Reproductive History - director of housing: /Reproductive Hx- director of housing Hx Now No 04/23/25 08:32 Gestational Age (in weeks): EDC: Hx Hx Para Hx Section SAB No 04/23/25 08:32 Active Medications Active Medications: Current Medications Generic Name Dose Route Start Last Admin Trade Name Freq PRN Reason Stop Dose Admin Cefazolin Sodium 2 gm/ Sodium 110 mls @ 150 mls/hr 04/25/25 07:30 Chloride IV 04/25/25 08:13 INTRAOP ONE Lactated Ringer's 1,000 mls @ 30 mls/hr 04/25/25 06:45 04/25/25 06:46 IV 30 mls/hr .[id number] EUFEMIA Administration PFSH Medical History Marijuana use Wears hearing aid Loss of hearing Depression Restless legs History of chemical tubal occlusion Wears glasses Wears contact lenses Anxiety Alcohol use Back pain Injury of back Former smoker History of herniated intervertebral disc Stomach ulcer Home Medications ?Medication ?Instructions ?Recorded ?Last Taken ?Type citalopram 40 mg tablet 40 mg PO DAILY 04/24/2104/15 History bupropion HCl 150 mg 24 hr tablet, 150 mg PO QDAY 04/1604/24/25 History extended release drospirenone (contraceptive) 4 mg 1 tab PO QDAY 04/24/25 History (28) tablet (Slynd) ondansetron 4 mg disintegrating 4 mg PO Q8H PRN PRN Na usea #10 tabs 04/17/25 04/24/25 Rx tablet acetaminophen 500 mg tablet 500 mg PO Q6H PRN pain 08/09 Unknown History Allergy/AdvReac Type Severity Reaction Status Date / Time morphine AdvReac Itching Verified 04/23/25 08:28 Family History Other Alcoholism CVA (cerebral vascular accident) Heart disease Osteoporosis Thyroid disorder Surgical History History of colonoscopy History of esophagogastroduodenoscopy (EGD) History of back surgery History of hysteroscopy History of tonsillectomy and adenoidectomy Hx of laparoscopy History of foot surgery History of delivery Social History Smoking Status: Former smoker alcohol intake: current alcohol intake frequency: holidays/special occasions only substance use type: does not use what type of physical activity do you participate in: yoga frequency: 3-4 times per week Review of Systems (Anesthesia) ROS Narrative System reviewed and no additional complaints, except as documented.
--- NOTE | 2025-04-25 07:09 | PCM.HP.BLA ---
History and Physical Date of Admission: 04/25/25 MR#: [id number] Acct: [id number] Name: ERIBERTO CORREA Rep #: [id number] : 1980 Provider: Dr. Rajinder Gold MD Age/Sex: 44/F Location: [facility] Status: Signed Intake Vital Signs 04/16/2518:10 04/20/2512:36 Height 5 ft 4 in 5 ft 4 in Weight: 150 lb BMI 25.7 BP 130/81 H Blood Pressure Location Lt brachial Position Sitting Respiration 16 Intake Visit Reasons: ER F/U- GALLBLADDER Chief Complaint: Low back pain Basin Cleaner Required: No Is patient in pain?: Yes (ruq abd) Allergies morphine Adverse Reaction (Verified 04/20/25 12:37) Itching Medications ?Medication ?Instructions ?Recorded ?Confirmed ?Type cholecalciferol (vitamin D3) 25 25 mcg PO DAILY 04/24/21 04/20/25 History mcg (1,000 unit) chewable tablet (Vitamin D3) citalopram 40 mg tablet 40 mg PO DAILY 04/24/21 04/20/25 History bupropion HCl 150 mg 24 hr tablet, 150 mg PO QDAY 05/05/24 04/20/25 History extended release acetaminophen 500 mg tablet 500 mg PO Q6H #30 tabs 07/19/24 04/20/25 Rx drospirenone (contraceptive) 4 mg 1 tab PO QDAY 10/10/24 04/20/25 History (28) tablet (Slynd) ondansetron 4 mg disintegrating 4 mg PO Q8H PRN PRN Nausea #10 tabs 04/17/25 04/20/25 Rx tablet Have you fallen in the past year?: No PFSH Medical History COVID Wears hearing aid Loss of hearing Depression Restless legs History of chemical tubal occlusion Wears glasses Wears contact lenses Anxiety Alcohol use Back pain Injury of back Former smoker History of herniated intervertebral disc Stomach ulcer Surgical History History of hysteroscopy History of tonsillectomy and adenoidectomy Hx of laparoscopy History of foot surgery History of delivery Family History Other Alcoholism CVA (cerebral vascular accident) Heart disease Osteoporosis Thyroid disorder Social History Smoking Status: Former smoker alcohol intake: current alcohol intake frequency: holidays/special occasions only substance use type: does not use what type of physical activity do you participate in: yoga frequency: 3-4 times per week HPI HPI HPI: Patient is a 44-year-old female who makes outpatient follow-up after an ER consultation on 04/17/2025. She presents today with her daughter. She states that overall she has done well sticking with a carbohydrate?only diet. She states she had a little chicken the other night which did not result in symptoms, however, she states she had some abdominal pain earlier today that was of a mild intensity just after eating some low-fat cheese. She comes with several questions related to her postoperative recovery. Outside of the above patient acknowledges some diarrhea which is characterized by mucus in her stool. She notes that it is overall better. She states previously she was experience 3-4 bowel movements per day. She confirms a colonoscopy last May given a family history of colon cancer (paternal grandmother diagnosed in their 80s) but also reports that she did not have any stool changes at that time. She does know she was diagnosed with a polyp at that colonoscopy. Patient states that her brother is a general surgeon in [place] and had wondered about some of her workup. ROS General General: No weight change, appetite, fatigue, colon cancer, breast cancer or weakness HEENT HEENT: No difficulty swallowing, eye injury, eye surgery, swollen glands or hoarseness Endo Endocrine: No thyroid disease, diabetes mellitus, thyroid cancer, Hair loss, heat intolerance or cold intolerance Skin Skin: No rash or changing moles Breast Breast: No left breast lump, right breast lump, nipple discharge, breast pain, abnormal mammogram, abnormal US or breast enlargement Musc Musculoskeletal: Yes back problems; No arthritis, rheumatoid arthritis, gout or joint pain Cardio Cardiovascular: No murmur, pacemaker, heart disease, atrial fibrillation, high blood pressure, heart attack, heart stent, palpitations, shortness of breath with exertion or chest pain Psych Psychiatric: Yes anxiety; No depression or hearing voices Resp Respiratory: No shortness of breath, No sleep apnea, No cough, No COPD, No asthma, No emphysema and No wheezing Gastro Gastrointestinal: Yes abdominal pain, Yes nausea or vomiting, Yes diarrhea, No constipation, No blood in stool, No acid reflux, No hemorrhoids, Yes ulcers, Yes gallbladder problem and No black,tarry stools Martin Hematologic: No blood thinners, No blood disorders, No bleeding, No anemia and No blood clots Neuro Neurologic: No system reviewed and no additional complaints, except as documented, No as per HPI, No abnormal gait, No abnormal hearing, No abnormal movements, No abnormal speech, No behavioral changes, No burning sensations, No confusion, No convulsions, No disequilibrium, No dizziness, No localized weakness, No frequent falls, No headache(s), No lack of coordination, No loss of vision, No memory loss, No numbness, No other visual disturbances, No radicular pain, No restless legs, No sensory deficit, No syncope, No tingling, No tremor(s), No weakness and No other Exam Const General: cooperative Nutritional Appearance: average body habitus Orientation: alert, awake and oriented x3 Resp Effort & Inspection: normal respiratory effort GI Other: Mild tenderness with palpation of the right upper quadrant. Negative Ennis sign. Small umbilical hernia containing fat detected. There is mild tenderness with palpation. Assessment and Plan Assessment and Plan (1) Cholelithiasis without cholecystitis: Status: Acute Comment: Patient 44-year-old female who presents to schedule outpatient cholecystectomy after recent emergency room evaluation for acute onset abdominal pain. She has done well through dietary restriction, but does report mild symptoms just after having some low-fat cheese earlier today. I suspect she will continue to be at risk for symptoms until her gallbladder is removed given location of a rather large stone in the gallbladder neck region. I had previously told patient I visualized this stone on CT imaging she completed back on 15 March. Today we reviewed the expectations for the procedure as well as postprocedure lifting and dietary recommendations. I informed her that her present diarrheal symptoms may get worse before the improve postoperatively. Patient confirmed understanding of all these terms. Plan: Outpatient laparoscopic cholecystectomy with intraoperative cholangiography I have examined the patient and the H&P has been reviewed. There are no clinical changes since date of exam. Post procedure recovery expectations were reviewed and lingering patient questions were answered. Consents were confirmed. Proceed to the operating room for planned laparoscopic cholecystectomy with intraoperative cholangiography.
[2025-04-25] MEDS: Cefazolin 2 GM in 0.9% Normal Saline (100mL Bag) 100 ML IV (07:30)
--- NOTE | 2025-04-25 07:30 | GALL_PTH ---
PATIENT: ERIBERTO CORREA [place] [facility] [place][id number] AGE/SX: 44/F ROOM: RE04/25/[address]: Dr. Rajinder Gold MD : 1980 BED: DIS: 04/25/2025 SPEC #: [id number] RECD: 04/25/25 10:04 STATUS: KEERTHI NIDHI #: [id number] PIPER: 04/25/25 07:[address]: Rajinder Gold DEPT: SURGICAL PATHOLOGY RECD BY: Brandin Snell ENTERED: 04/25/25 10:37 SP TYPE: JOHNNY TORO DR: Dolores Mann, ALDO Tissues: A - Gallbladder, NOS Procedures: Surgery Specimen Level III HEADER OPERATION: Laparoscopic, cholecystectomy with IOC PRE-OP DIAGNOSIS: Cholelithiasis without cholecystitis TISSUE SUBMITTED: A- Gallbladder MICROSCOPIC DIAGNOSIS A. Gallbladder, cholecystectomy: * Cholecystolithiasis * Cholesterolosis * Chronic cholecystitis MICROSCOPIC DESCRIPTION Slides are reviewed. GROSS DESCRIPTION A. Received in formalin labeled with the patient's name and date of . Designated as gallbladder is a 6.8 x 2.5 x 2.0 cm pink-purple, intact gallbladder with attached, patent cystic duct (inked black, shaved). Opening reveals green tenacious bile and a 1.0 cm crystalline biliary calculus. The mucosa is dark green with mild to moderate cholesterolosis and a maximum wall thickness of 0.1 cm. Stencil Maker sections are submitted in 1 cassette. [facility] [place] CPT:[id number]
[2025-04-25] MEDS: Bupiv/Epi 0.25% 30 ML Vial (07:59)
--- NOTE | 2025-04-25 08:00 | RAD_ITS ---
PROCEDURE: ABDOMEN SINGLE VIEW 04/25/2025 REASON FOR EXAM: LAP COLLEEN W/ IOC TECHNIQUE: Single view abdomen. Intraoperative fluoroscopic image. Radiation time 8.4 seconds. Radiation dose: 2.03 mGy. COMPARISON: CT scan on 03/16/2025. FINDINGS: Intraoperative fluoroscopic view of the upper abdomen. Please refer to operative report. RAD/Abdomen Single View IMPRESSION: Intraoperative fluoroscopic view of the upper abdomen. Reading [facility]
--- NOTE | 2025-04-25 09:32 | OP.PCM_ITS ---
Operative Report (Standard) Operative Information Date of Procedure: 04/25/25 Pre-Operative Diagnosis: 1. Cholelithiasis 2. Biliary colic Post-Operative Diagnosis: 1. Cholelithiasis 2. Biliary colic 3. Mild cholecystitis Surgery/Procedure Performed: 1. Laparoscopic cholecystectomy with aborted cholangiography 2. Local wound exploration for removal of foreign body power hair clipper: Yes Storage Battery Inspector And Tester: Holly Greco Tasks completed by first line supervisor: Opening & closing, Retracting and Other (Laparoscopic camera operation) Type of Anesthesia: General/Supplemental RN Documented Start/Stop Times: Operation Date: 04/25/25 07:30 Case Time Into Pre-Op 04/25/25 06:10 Out of Pre-Op 04/25/25 07:27 Anesthesia Start 04/25/25 07:30 Into Room 04/25/25 07:30 Procedure Start 04/25/25 07:59 Procedure End 04/25/25 09:32 Anesthesia End 04/25/25 09:37 Out of Room 04/25/25 09:37 Into Recovery 04/25/25 09:39 Into Phase II Recovery 04/25/25 10:43 Out of Recovery 04/25/25 10:43 Out of Phase II 04/25/25 12:43 Procedure Start Time: 07:59 Procedure Stop Time: 09:32 Select all DRAINS/GRAFTS/IMPLANTS that apply: None Estimated Blood Loss: 10 Specimen collected: Yes Description of specimen(s) removed: Gallbladder Description of surgery: After proper identification in the preoperative holding area the patient was brought to the operating room where she was positioned supine on the operating room table. Preoperatively SCDs were placed and antibiotics were administered. General anesthesia was then induced. Patient's abdomen was prepped and draped in usual sterile fashion. A formal timeout was conducted to confirm both patient and the procedure. Procedure was begun with a supraumbilical incision which was extended deeply down to the level of the fascia. The fascia was elevated and incised, as well as the peritoneum. A finger sweep was performed to ensure there were no underlying adhesions and a 12 mm balloon trocar was inserted. Pneumoperitoneum was established at 15 mmHg. Three additional trocars (all 5 mm) were placed in the epigastrium and in the right upper quadrant. Inspection of the peritoneum revealed no inadvertent injury to the viscera below. The gallbladder was visualized with minimal inflammation to the infundibular portion of the gallbladder. The gallbladder fundus was then grasped and elevated cephalad. Then, using careful dissection the peritoneum was opened and the structures of the hepatocystic triangle were delineated?including both an anterior and posterior cystic artery. Once the critical view of safety was obtained, the cystic duct was singly clipped and partially divided with a ductotomy. The proximal duct was milked of debris but there was minimal backflow of bile. The cystic duct was notably diminutive in caliber. I first attempted to used an Love Fredrick clamp and cholangiocatheter to intubate the cystic duct. While I was able to enter the lumen I was not able to achieve antegrade flow of saline. Therefore, I requested a smaller, metal tipped catheter and was presented with a Ranfac catheter. A skin incision was made in the epigastrium and the catheter was introduced through this small walter in the skin. Unfortunately as I applied direct pressure to advance the catheter through the abdominal wall the tip of the catheter fractured at the angulated portion. Given this issue and the normal caliber of the cystic duct with clear anatomy, I elected to abandon any further attempts at cholangiography. The remnant cholangiocatheter was withdrawn and the cystic duct was closed with 2 Hem-o-prashant clips and completely transected. The same process was used for both cystic arteries. The gallbladder was then removed from the gallbladder fossa with the use of electrocautery. Selective electrocautery was used to obtain hemostasis in the gallbladder fossa. The gallbladder was placed in an Endo Catch bag. Morison's pouch was irrigated and the effluent was suctioned free of the peritoneum. Hemostasis was again confirmed in the gallbladder fossa. I then returned to the abdominal wall where I used x-ray to perform AP and lateral films to approximate the location of our fractured metal catheter tip. I extended the prior skin incision to approximately 1 cm length and began bluntly dissecting in the opening as I inspected the cavity for the catheter fragment. Several additional x-rays were required for further localization but ultimately we encountered the tip lodged superficially in the subcutaneous layer and it was extracted. A postextraction x-ray confirmed the absence of the foreign body. Pneumoperitoneum was then evacuated and the gallbladder removed via the supraumbilical port site. The fascia of the 12 mm port site was closed with #1Vicryl in a [id number] fashion. A total of 30 mL of anesthetic was injected at the port sites for postoperative pain control. The skin of each port site was then closed in subcuticular fashion using 4-0 Monocryl. Steri- Strips and bandages were applied as dressings. Patient tolerated the procedure well with no complications apart from the fractured cholangiocatheter. On emerg ence from their anesthetic the patient was taken to PACU for ongoing recovery. Surgical Findings: ? Accessory cystic artery found posteriorly ? Long diminutive cystic duct ? Minimal cholecystitis ? Successful retrieval of foreign body (metallic tip of fractured cholangiocatheter) Complications Complications: Yes Complication Details: Fracture of Ranfac catheter requiring local wound exploration for foreign body extraction Admit VTE Documentation VTE Mechan Device Prophylaxis: SCD's
--- NOTE | 2025-04-25 09:36 | EX.PCM.DISCH ---
Discharge Instructions Diet Discharge Diet: No restrictions Activity Discharge Activity: May Not Drive (No driving while using narcotic pain medication) and May Shower (Postoperative day 1) May shower in (days): 2 Ice area for (Minutes): 20 Lifting Restrictions: No lifting greater than 15 pounds for 2 weeks after surgery Dressing / Incision Call your doctor if your incision/area has: Continuous Slow Oozing, Increased Pain/ Swelling, Increased Redness, Foul Smelling Discharge and Swelling at the incision site Call your doctor if you observe: Fever of 101 or Higher Remove Dressing in: 2 days (Please leave Steri-Strips intact until they fall off spontaneously or are taken off at your follow-up visit) Cleanse incision/area with: Soap & Water Follow Up Care Please Follow Up With: Rajinder Gold MD When: 7-10days postop Test Results: Test results from this visit will be discussed in further detail at your follow-up appointment, if applicable. Discharge Plan Admission Primary Reason for Your Visit: Laparoscopic cholecystectomy Attending Provider: Rajinder Gold Primary Care Provider: Dolores Mann NP Instructions Print Language: Dutch Discharge Orders/Prescriptions Prescriptions: New oxycodone 5 mg tablet 5 mg PO Q6H PRN (Reason: pain) 3 Days Qty: 10 0RF Continued bupropion HCl 150 mg tablet extended release 24 hr 150 mg PO QDAY Slynd 4 mg (28) tablet 1 tab PO QDAY citalopram 40 mg tablet 40 mg PO DAILY Patient Comments: take 1 tablet by mouth once daily ondansetron 4 mg tablet,disintegrating 4 mg PO Q8H PRN PRN (Reason: Nausea) Qty: 10 0RF acetaminophen 500 mg Tablet 500 mg PO Q6H PRN (Reason: pain) Other Ambulatory Orders: 12 Lead EKG (Routine) Timeframe: 20250425 Location: None Selected Ordered By: Dr. Laci Edwards Referrals / Follow Up: Rajinder Gold MD [Med Staff - Active Staff] - Dolores Mann NP, HOT BOX SPOTTER-C [Primary Care Provider] - Disposition Disposition (needs filled in before D/C Order can be placed): Home, Self Care
--- NOTE | 2025-04-25 09:44 | PCM.POST.ANE ---
Anesthesia: Postop Eval I Current Vital Signs Temperature: 97.1 F Pulse Rate: 97 Blood Pressure: 116/69 Respiratory Rate: 20 Pulse Ox: 98 Oxygen Delivery Method: Room Air Assessment Airway patent: Yes Spontaneous unlabored respirations: Yes Mental status: Awake and Calm nausea: No Vomiting: No Anesthesia Complication: No Fluid Hydration Crystalloid volume administer (ml): 1,200 Total IV fluid infused: 1,200 Progress Note Anesthesia document: Postop Eval 1 completed: Yes
--- NOTE | 2025-04-25 10:32 | POSTOPAN2_ITS ---
Anesthesia Postop Eval I Sum Postop Eval Completion status Anesthesia document: Postop Eval 1 completed: Yes Anesthesia Postop Eval I Summary Anesthesia Postop Eval I Summary: Anesthesia Postop Eval I: Assessment Summary Airway patent Yes 04/25/25 09:45 FILER METAL [email or web address] Spontaneous unlabored Yes 04/25/25 09:45 FILER METAL PATTERNS.[email or web address] respirations Mental status Awake,Calm 04/25/25 09:45 FILER METAL PATTERNS.JDEF nausea No 04/25/25 09:45 FILER METAL PATTERNS.JDEF Vomiting No 04/25/25 09:45 FILER METAL [email or web address].[email or web address] Anesthesia Postop Eval I: Fluid Summary Crystalloid volume administer 1,200 04/25/25 09:45 FILER METAL [email or web address].JDEF (ml) Colloids volume administered ( ml) Blood Product volume administered (ml) Total IV fluid infused 1,200 04/25/25 09:45 FILER METAL [email or web address].JDEF Anesthesia Postop Eval I: Summary Notes Anesthesia Complication No 04/25/25 09:45 FILER METAL [email or web address].JDEF Anesthesia Complication Comment: Post-operative progress note Anesthesia: Postop Eval II Evaluation Mental status: Awake Pain Level: 0 nausea: No Vomiting: No
--- NOTE | 2025-04-25 10:32 | PCM.POSTANE2 ---
Anesthesia Postop Eval I Sum Postop Eval Completion status Anesthesia document: Postop Eval 1 completed: Yes Anesthesia Postop Eval I Summary Anesthesia Postop Eval I Summary: Anesthesia Postop Eval I: Assessment Summary Airway patent Yes 04/25/25 09:45 OIL DERRICK [email or web address] Spontaneous unlabored Yes 04/25/25 09:45 OIL DERRICK OPERATOR.JDEF respirations Mental status Awake,Calm 04/25/25 09:45 OIL DERRICK OPERATOR.JDEF nausea No 04/25/25 09:45 OIL DERRICK OPERATOR.JDEF Vomiting No 04/25/25 09:45 OIL DERRICK OPERATOR.JDEF Anesthesia Postop Eval I: Fluid Summary Crystalloid volume administer 1,200 04/25/25 09:45 OIL DERRICK OPERATOR.JDEF (ml) Colloids volume administered ( ml) Blood Product volume administered (ml) Total IV fluid infused 1,200 04/25/25 09:45 OIL DERRICK OPERATOR.JDEF Anesthesia Postop Eval I: Summary Notes Anesthesia Complication No 04/25/25 09:45 OIL DERRICK OPERATOR.JDEF Anesthesia Complication Comment: Post-operative progress note Anesthesia: Postop Eval II Evaluation Mental status: Awake Pain Level: 0 nausea: No Vomiting: No
== END 2025-04-25 12:43 | disposition home or self-care (01) ==
LOC: SDC 05:59 → AC 06:01
PROVIDERS: Anesthesiology; PCP Nurse Practitioner Family; Referring Provider Surgery; Visit Provider Surgery
PROC: (CPT 47610; principal; 2025-04-25 07:10)
DX: K80.64 Calculus of gallbladder and bile duct with chronic cholecystitis without obstruction (principal); Z87.891 Personal history of nicotine dependence; K91.81 Other intraoperative complications of digestive system; Z79.899 Other long term (current) drug therapy; F41.9 Anxiety disorder, unspecified; F32.A Depression, unspecified
CPT/HCPCS: 47562; 10120; 00790; 74018; 74300; 76000; 81025; 88304; 93005; J2405